=== PATIENT | female | born 1975 | race Caucasian/White ===

== ENCOUNTER 2018-05-03 15:28 | Emergency (ER) | payer BC, OTHER ==
[2018-05-03] MEDS ORDERED: Sodium Chloride 0.9% 10 ML Syringe FLUSH PRN (15:49)
[2018-05-03] MEDS ORDERED: Lactated Ringers 1,000 ML IV SCH (16:00)
[2018-05-03] MEDS: Sodium Chloride 0.9% 1,000 ML IV ONE ×2 (16:15→18:04)
[2018-05-03] MEDS ORDERED: Ondansetron 4 MG/2 ML SDV IVPUSH ONE (16:24)
[2018-05-03] MEDS ORDERED: Piperacillin/Tazobactam 3.375 GM in Sodium Chloride 0.9% 100 ML IV ONE (17:16)
[2018-05-03 17:26] LABS: CHLORIDE,CL 92 mmol/L (98-107); SODIUM,NA 130 mmol/L (136-145)
[2018-05-03] MEDS ORDERED: Calcium Chloride 10% 1 GM/10 ML Syringe IVPUSH ONE (17:44)
[2018-05-03] MEDS ORDERED: Insulin Regular, Human 10 UNIT in Dextrose 10% in Water 500 ML IV ONE ×2 (17:45)
[2018-05-03] MEDS ORDERED: 50% Dextrose in Water 50 ML Syringe IV PRN (17:46)
[2018-05-03] MEDS ORDERED: Sodium Bicarbonate 8.4% 50 MEQ/50 ML Syringe IVPUSH ONE (18:01)
--- NOTE | 2018-05-03 18:18 | EDM.PDOC ---
ED HPI GENERAL MEDICAL PROBLEM - General Chief Complaint: Abdominal Pain Time Seen by Provider: 05/03/18 15:28 Source of Information: Reports: Patient History Limitations: Reports: No Limitations - History of Present Illness INITIAL COMMENTS - FREE TEXT/NARRATIVE: Pt. presents to ER with abdominal pain, diarrhea, vomiting and spasms to spasms to the hands. Pt. was recently diagnosed with Crohn's disease but was misdiagnosed until recently. 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 Her research engineer marine equipment just recently diagnosed her with Crohn's. Pt. 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 The abdominal discomfort has been chronic but worse over the past 24 hours. She has been unable to keep down fluids. She has chronic hypokalemia and takes oral potassium chloride. because of the symptoms, pt. daughter has given her between 8 and 12 10meg doses of effervescent potassium throughout the day. Pt. states that she was experiencing severe pedal spasms which she attributed to electrolyte disturbance. Onset Date: 05/02/18 Duration: Constant Location: Reports: Abdomen, Upper Extremity, Left, Upper Extremity, Right - Related Data Allergies Allergy/AdvReac Type Severity Reaction Status Date / Time Unable to Assess Allergy Unverified 05/03/18 15:48 ED ROS GENERAL - Review of Systems Review Of Systems: See Below Constitutional: Reports: Weakness, Fatigue, Decreased Appetite, Weight Loss HEENT: Reports: No Symptoms Respiratory: Reports: No Symptoms Cardiovascular: Reports: No Symptoms Endocrine: Reports: No Symptoms GI/Abdominal: Reports: Abdominal Pain, Anorexia, Bloody Stool, Diarrhea, Decreased Appetite, Hematochezia, Nausea, Vomiting. Denies: Hematemesis : Reports: No Symptoms Musculoskeletal: Reports: Other (carpal spasm) Skin: Reports: No Symptoms Neurological: Reports: Weakness Psychiatric: Reports: No Symptoms Hematologic/Lymphatic: Reports: No Symptoms Immunologic: Reports: No Symptoms ED EXAM, GENERAL - Physical Exam Exam: See Below Exam Limited By: No Limitations General Appearance: Alert, Moderate Distress, Cachetic Eye Exam: Bilateral Eye: EOMI, Normal Fundi, Normal Inspection, PERRL Nose: Normal Inspection, Normal Mucosa, No Blood Throat/Mouth: Normal Inspection, Normal Lips, Normal Teeth, Normal Gums, Normal Oropharynx, Normal Voice, No Airway Compromise Head: Atraumatic, Normocephalic Neck: Normal Inspection, Supple, Non-Tender, Full Range of Motion Respiratory/Chest: No Respiratory Distress, Lungs Clear, Normal Breath Sounds, No Accessory Muscle Use, Chest Non-Tender Cardiovascular: Normal Peripheral Pulses, Regular Rate, Rhythm, No Edema, No Gallop, No JVD, No Murmur, No Rub Peripheral Pulses: 4+: Radial (L), Radial (R) GI/Abdominal: Soft, No Organomegaly, No Mass, Tender, Other (diffusely tender, hyperactive bowel sounds) (Female) Exam: Deferred Rectal (Female) Exam: Deferred Back Exam: Normal Inspection, Full Range of Motion, NT Extremities: Normal Inspection, Normal Range of Motion, Non-Tender, Normal Capillary Refill, No Pedal Edema Neurological: Alert, Oriented, CN II-XII Intact, Normal Cognition, Normal Gait, Normal Reflexes, No Motor/Sensory Deficits Psychiatric: Normal Affect, Normal Mood Skin Exam: Warm, Dry, Intact, Normal Color, No Rash EKG INTERPRETATION Rhythm: NSR Palmer: Normal P-Wave: Present QRS: Normal ST-T: Other (peaked T waves) QT: Normal Comparison: NA - No Prior EKG Course - Orders/Labs/Meds Orders: Active Orders 24 hr Category Date Time Status CULTURE BLOOD [BC] Stat Lab 05/03/18 16:05 Results CULTURE BLOOD [BC] Stat Lab 05/03/18 16:05 Results UA W/MICROSCOPIC [URIN] Stat Lab 05/03/18 15:50 Ordered Dextrose 50% in Water Med 05/03/18 17:46 Active 50 ml IV ASDIRECTED PRN Sodium Chloride 0.9% [Saline Flush] Med 05/03/18 15:49 Active 10 ml FLUSH ASDIRECTED PRN Blood Culture x2 Reflex Set [OM.PC] Stat Oth 05/03/18 15:51 Ordered Peripheral IV Insertion Adult [OM.PC] Routine Oth 05/03/18 15:50 Ordered Medication Orders Dextrose/Water (Dextrose 50% In Water) 50 ml IV ASDIRECTED PRN PRN Reason: Hypoglycemia Sodium Chloride (Saline Flush) 10 ml FLUSH ASDIRECTED PRN PRN Reason: Keep Vein Open Labs: Laboratory Tests 05/03/18 05/03/18 05/03/18 Range/Units 16:58 16:58 16:58 WBC 25.7 H* (4.0-10.0) x10^3/uL RBC 4.79 (4.00-5.50) x10^6/uL Hgb 15.3 (12.0-16.0) g/dL Hct 43.3 (33.0-47.0) % MCV 90.4 (78.0-93.0) fL MCH 31.9 (26.0-32.0) pg MCHC 35.3 (32.0-36.0) g/dL RDW Coeff of Brianda 13.1 (10.0-15.0) % Plt Count 509 H (130-400) x10^3/uL Add Manual Diff Yes Neutrophils % (Manual) 86 H (50-80) % Band Neutrophils % 9 H (0-6) % Lymphocytes % (Manual) 1 L (25-50) % Monocytes % (Manual) 1 L (2-11) % Metamyelocytes % 1 H (0) % Myelocytes % 2 H (0) % Platelet Estimate Marked inc H Macrocytosis 1+ slight H Spherocytes 1+ slight H PT 9.8 (9.6-11.4) SEC INR 0.9 L (2.0-3.5) Sodium 130 L (136-145) mmol/L Potassium 7.0 H* (3.5-5.1) mmol/L Chloride 92 L (98-107) mmol/L Carbon Dioxide 23 (21-32) mmol/L Anion Gap 22.0 H (10-20) mmol/L BUN 53 H (7-18) mg/dL Creatinine 3.2 H* (0.55-1.02) mg/dL Est Cr Clr Drug Dosing TNP Estimated GFR (MDRD) 16 Glucose 97 (74-106) mg/dL Lactic Acid (0.4-2.0) mmol/L Calcium 9.0 (8.5-10.1) mg/dL Corrected Calcium 9.48 (8.5-10.1) mg/dL Phosphorus 4.9 H (2.6-4.7) mg/dL Magnesium 2.2 (1.8-2.4) mg/dL Total Bilirubin 0.3 (0.2-1.0) mg/dL AST 36 (15-37) U/L ALT 85 H (14-59) U/L Alkaline Phosphatase 91 (46-116) U/L C-Reactive Protein < 0.2 (<=0.9) mg/dL Total Protein 7.1 (6.4-8.2) g/dL Albumin 3.4 (3.4-5.0) g/dL Globulin 3.7 Albumin/Globulin Ratio 0.92 / Range/Units 16:58 WBC (4.0-10.0) x10^3/uL RBC (4.00-5.50) x10^6/uL Hgb (12.0-16.0) g/dL Hct (33.0-47.0) % MCV (78.0-93.0) fL MCH (26.0-32.0) pg MCHC (32.0-36.0) g/dL RDW Coeff of Brianda (10.0-15.0) % Plt Count (130-400) x10^3/uL Add Manual Diff Neutrophils % (Manual) (50-80) % Band Neutrophils % (0-6) % Lymphocytes % (Manual) (25-50) % Monocytes % (Manual) (2-11) % Metamyelocytes % (0) % Myelocytes % (0) % Platelet Estimate Macrocytosis Spherocytes PT (9.6-11.4) SEC INR (2.0-3.5) Sodium (136-145) mmol/L Potassium (3.5-5.1) mmol/L Chloride (98-107) mmol/L Carbon Dioxide (21-32) mmol/L Anion Gap (10-20) mmol/L BUN (7-18) mg/dL Creatinine (0.55-1.02) mg/dL Est Cr Clr Drug Dosing Estimated GFR (MDRD) Glucose (74-106) mg/dL Lactic Acid 3.6 H* (0.4-2.0) mmol/L Calcium (8.5-10.1) mg/dL Corrected Calcium (8.5-10.1) mg/dL Phosphorus (2.6-4.7) mg/dL Magnesium (1.8-2.4) mg/dL Total Bilirubin (0.2-1.0) mg/dL AST (15-37) U/L ALT (14-59) U/L Alkaline Phosphatase (46-116) U/L C-Reactive Protein (<=0.9) mg/dL Total Protein (6.4-8.2) g/dL Albumin (3.4-5.0) g/dL Globulin Albumin/Globulin Ratio Meds: Medications Generic Name Dose Route Start Last Admin Trade Name Jocelyn PRN Reason Stop Dose Admin Dextrose/Water 50 ml 05/03/18 17:46 Dextrose 50% In Water IV ASDIRECTED PRN Hypoglycemia Sodium Chloride 10 ml 05/03/18 15:49 Saline Flush FLUSH ASDIRECTED PRN Keep Vein Open Discontinued Medications Generic Name Dose Route Start Last Admin Trade Name Jocelyn PRN Reason Stop Dose Admin Calcium Chloride 1 gm 05/03/18 17:44 05/03/18 18:05 Calcium Chloride 10% IVPUSH 05/03/18 17:45 1 gm ONETIME ONE Administration Lactated Ringer's 1,000 mls @ 500 mls/hr 05/03/18 16:00 Ringers, Lactated IV ASDIRECTED MARY Sodium Chloride 1,000 mls @ 1,000 mls/hr 05/03/18 16:24 05/03/18 18:04 Normal Saline IV 05/03/18 17:23 1,000 mls/hr .BOLUS ONE Administration Piperacillin Sod/Tazobactam 100 mls @ 200 mls/hr 05/03/18 17:16 05/03/18 18: 05 Sod 3.375 gm/ Sodium Chloride IV 05/03/18 17:45 200 mls/hr ONETIME ONE Administration Insulin Human Regular 10 unit/ 500.1 mls @ 500 mls/hr 05/03/18 17:45 18:05 Dextrose/Water IV 05/03/18 18:45 500 mls/hr ONETIME ONE Administration Ondansetron HCl 4 mg 05/03/18 16:24 05/03/18 16:30 Zofran IVPUSH 05/03/18 16:25 4 mg ONETIME ONE Administration Sodium Bicarbonate 50 meq 05/03/18 18:01 05/03/18 18:05 Sodium Bicarbonate 8.4% IVPUSH 05/03/18 18:02 50 meq ONETIME ONE Administration - Re-Assessments/Exams Free Text/Narrative Re-Assessment/Exam: 05/03/18 18:58 Pt. was given Zosyn 3.375gm IV. On obtaining her labs, pt. was given calcium chloride 1gm IV, 50 harper of sodium bicarb, 10u of regular insulin, and 25mg of D50. She was initially fluid resuscitated with 2 liters of normal saline. Villalobos catheter was placed. She continued to have minimal urine output, and normal saline boluses were continued. Departure - Departure Time of Disposition: 06:56 Disposition: DC/Tfer to [facility] 02 Clinical Impression: Acute renal failure (ARF), Hyperkalemia, Acute Crohn's disease - Discharge Information Referrals: PCP,Not In Area [Primary Care Provider] - Forms: ED Department Discharge, Interfacility Transfer EMTALA - My Orders Last 24 Hours: My Active Orders 05/03/18 15:49 Sodium Chloride 0.9% [Saline Flush] 10 ml FLUSH ASDIRECTED PRN 05/03/18 15:50 UA W/MICROSCOPIC [URIN] Stat Peripheral IV Insertion Adult [OM.PC] Routine 05/03/18 15:51 Blood Culture x2 Reflex Set [OM.PC] Stat 05/03/18 16:05 CULTURE BLOOD [BC] Stat CULTURE BLOOD [BC] Stat 05/03/18 17:46 Dextrose 50% in Water 50 ml IV ASDIRECTED PRN - Assessment/Plan Last 24 Hours: My Active Orders 05/03/18 15:49 Sodium Chloride 0.9% [Saline Flush] 10 ml FLUSH ASDIRECTED PRN 05/03/18 15:50 UA W/MICROSCOPIC [URIN] Stat Peripheral IV Insertion Adult [OM.PC] Routine 05/03/18 15:51 Blood Culture x2 Reflex Set [OM.PC] Stat 05/03/18 16:05 CULTURE BLOOD [BC] Stat CULTURE BLOOD [BC] Stat 05/03/18 17:46 Dextrose 50% in Water 50 ml IV ASDIRECTED PRN Assessment:: acute renal failure with hyperkalemia acute abdominal pain with history of chron's disease. Plan: IV normal saline with be continued enroute. Dr. Singer was the accepting physician as [facility] in [place]. I also spoke with nephrology regarding this patient. She will be transported via [facility] ground ambulance.
[2018-05-03] MEDS ORDERED: Sodium Chloride 0.9% 1,000 ML IV ONE (19:08)
== END 2018-05-03 19:20 | disposition short-term general hospital (02) ==
LOC: VM.ED 15:28
DX: E87.5 Hyperkalemia (principal); N17.9 Acute kidney failure, unspecified; K50.90 Crohn's disease, unspecified, without complications
CPT/HCPCS: 36415; 51702; 80053; 83605; 83735; 84100; 85025; 85610; 86140; 87040; 93005; 96361; 96365; 96375; 99285; J1815; J2405; J2543; J7030; J7050; J7060

== ENCOUNTER 2018-07-26 10:41 | Emergency (ER) | payer BC, OTHER ==
[2018-07-26] MEDS ORDERED: Sodium Chloride 0.9% 10 ML Syringe FLUSH PRN (11:08)
[2018-07-26] MEDS ORDERED: Sodium Chloride 0.9% 1,000 ML IV ONE (11:10)
[2018-07-26] MEDS ORDERED: Ondansetron 4 MG/2 ML SDV IVPUSH ONE (11:10)
--- NOTE | 2018-07-26 11:32 | EDM.PDOC ---
ED HPI GENERAL MEDICAL PROBLEM - General Chief Complaint: Gastrointestinal Problem Time Seen by Provider: 07/26/18 11:00 Source of Information: Reports: Patient, Family History Limitations: Reports: No Limitations - History of Present Illness INITIAL COMMENTS - FREE TEXT/NARRATIVE: Pt. presents to ER with complaints of nausea, vomiting, and diarrhea for 2 days. States that the symptoms got worse last evening. No chest pain or shortness of breath. Complains of weakness and fatigue. Pt. has a history of Crohns disease and is currently on Humira and prednisone for this. She has been in the prednisone since Jun. Denies any fever but complains of chills. Denies blood in stool or vomit. She currently sees [facility] for the Crohns. She does to have a PCP. She is from [facility] but is staying with her daughter while she is treated for Crohns. She has been here twice to the ER. She was transferred to [facility] in the first event due to CHARIS and hyperkalemia, and was admitted on the second event for dehydration. Onset: Today Onset Date: 07/24/18 Duration: Constant, Getting Worse Location: Reports: Abdomen, Generalized Quality: Reports: Burning Abdominal Pain Score (Numeric/FACES): 10 - Related Data Allergies Allergy/AdvReac Type Severity Reaction Status Date / Time acetaminophen Allergy Anaphylactic Verified 07/26/18 11:39 [From Darvocet-N] Shock codeine Allergy Anaphylactic Verified 07/26/18 11:39 Shock Penicillins Allergy Anaphylactic Verified 07/26/18 11:39 Shock propoxyphene Allergy Anaphylactic Verified 07/26/18 11:39 [From Darvocet-N] Shock Home Meds: Home Meds Budesonide [Budesonide EC] 9 mg PO DAILY 05/03/18 [History] Dicyclomine [Bentyl] 20 mg PO TID PRN 05/03/18 [History] Mesalamine 2.4 g PO DAILY 05/03/18 [History] Ondansetron HCl [Ondansetron] 4 mg PO TID PRN 05/03/18 [History] Potassium Bicarbonate/Cit Ac [Effer-K] 20 meq PO BID 05/03/18 [History] Ranitidine HCl [Ranitidine] 150 mg PO BID 05/03/18 [History] Cholecalciferol (Vitamin D3) [Vitamin D] 5,000 unit PO DAILY 05/23/18 [History] Vit W-Ca,Fe,FA(<1 mg) [ Vitamins] 1 each PO DAILY 05/23/18 [ History] Clindamycin HCl [Cleocin] 300 mg PO Q6H 10 Days #30 cap 05/24/18 [Rx] Past Medical History HEENT History: Reports: None Cardiovascular History: Reports: None Respiratory History: Reports: None Gastrointestinal History: Reports: Other (See Below) Other Gastrointestinal History: crohn's disease. colotis Genitourinary History: Reports: Acute Renal Failure, Chronic Renal Insuffiency Musculoskeletal History: Reports: Back Pain, Chronic Neurological History: Reports: None Psychiatric History: Reports: None Endocrine/Metabolic History: Reports: None Oncologic (Cancer) History: Reports: None Dermatologic History: Reports: None - Infectious Disease History Infectious Disease History: Reports: Chicken Pox - Past Surgical History HEENT Surgical History: Reports: None GI Surgical History: Reports: Cholecystectomy, Other (See Below) Other GI Surgeries/Procedures: appendectomy; partial sigmoidectomy Social & Family History - Family History Family Medical History: Noncontributory - Caffeine Use Caffeine Use: Reports: Coffee, Soda, Tea ED ROS GENERAL - Review of Systems Review Of Systems: See Below Constitutional: Reports: No Symptoms HEENT: Reports: No Symptoms Respiratory: Reports: No Symptoms Cardiovascular: Reports: No Symptoms Endocrine: Reports: No Symptoms GI/Abdominal: Reports: Abdominal Pain, Diarrhea, Nausea, Vomiting : Reports: No Symptoms Musculoskeletal: Reports: No Symptoms Skin: Reports: No Symptoms Neurological: Reports: No Symptoms Psychiatric: Reports: No Symptoms, Other Hematologic/Lymphatic: Reports: No Symptoms Immunologic: Reports: No Symptoms ED EXAM, GENERAL - Physical Exam Exam: See Below Exam Limited By: No Limitations General Appearance: Alert, WD/WN, No Apparent Distress Throat/Mouth: Normal Inspection, Normal Lips, Normal Teeth, Normal Gums, Normal Oropharynx, Normal Voice, No Airway Compromise Head: Atraumatic, Normocephalic Neck: Normal Inspection, Supple, Non-Tender, Full Range of Motion Respiratory/Chest: No Respiratory Distress, Lungs Clear, Normal Breath Sounds, No Accessory Muscle Use, Chest Non-Tender Cardiovascular: Normal Peripheral Pulses, Regular Rate, Rhythm, No Edema, No Gallop, No JVD, No Murmur, No Rub Peripheral Pulses: 4+: Radial (R) GI/Abdominal: No Organomegaly, No Mass, Tender, Abnormal Bowel Sounds ( diminished) (Female) Exam: Deferred Rectal (Female) Exam: Deferred Back Exam: Normal Inspection, Full Range of Motion, NT Extremities: Normal Inspection, Normal Range of Motion, Non-Tender, Normal Capillary Refill, No Pedal Edema Neurological: Alert, Oriented, CN II-XII Intact, Normal Cognition, Normal Gait, Normal Reflexes, No Motor/Sensory Deficits Psychiatric: Normal Affect, Normal Mood, Anxious, Tearful Skin Exam: Warm, Dry, Pallor Lymphatic: No Adenopathy Course - Vital Signs Last Recorded V/S: Last Vital Signs Temp 36.8 C 07/26/18 10:55 Pulse 97 07/26/18 10:55 Resp 16 07/26/18 10:55 BP 95/45 L 07/26/18 12:10 Pulse Ox 100 07/26/18 10:55 - Orders/Labs/Meds Orders: Active Orders 24 hr Category Date Time Status Abdomen Series w Chest 1V [CR] Stat Exams 07/26/18 11:08 Taken CULTURE BLOOD [BC] Stat Lab 07/26/18 11:30 Results CULTURE BLOOD [BC] Stat Lab 07/26/18 11:41 Results UA W/MICROSCOPIC [URIN] Stat Lab 07/26/18 11:09 Ordered Sodium Chloride 0.9% [Saline Flush] Med 07/26/18 11:08 Active 10 ml FLUSH ASDIRECTED PRN Sodium Chloride 0.9% with KCl [Normal Saline with 40 Med 07/26/18 12:45 Ordered mEq KCl] 1,000 ml IV ASDIRECTED Blood Culture x2 Reflex Set [OM.PC] Stat Oth 07/26/18 11:09 Ordered Peripheral IV Insertion Adult [OM.PC] Routine Oth 07/26/18 11:09 Ordered Medication Orders Potassium Chloride/Sodium Chloride (Normal Saline With 40 Meq Kcl) 1,000 mls @ 250 mls/hr IV ASDIRECTED MARY Sodium Chloride (Saline Flush) 10 ml FLUSH ASDIRECTED PRN PRN Reason: Keep Vein Open Labs: Laboratory Tests 07/26/18 07/26/18 07/26/18 Range/Units 11:30 11:41 11:49 WBC 13.3 H (4.0-10.0) x10^3/uL RBC 4.82 (4.00-5.50) x10^6/uL Hgb 15.5 D (12.0-16.0) g/dL Hct 44.0 (33.0-47.0) % MCV 91.3 D (78.0-93.0) fL MCH 32.2 H (26.0-32.0) pg MCHC 35.2 (32.0-36.0) g/dL RDW Coeff of Brianda 13.1 (10.0-15.0) % Plt Count 449 H (130-400) x10^3/uL Neut % (Auto) 72.4 (50.0-80.0) % Lymph % (Auto) 16.7 L (25.0-50.0) % Collier % (Auto) 7.7 (2.0-11.0) % Eos % (Auto) 2.7 (0.0-4.0) % Baso % (Auto) 0.5 (0.2-1.2) % PT 10.1 (9.6-11.4) SEC INR 1.0 L (2.0-3.5) Sodium 129 L* (136-145) mmol/L Potassium 2.7 L* (3.5-5.1) mmol/L Chloride 93 L (98-107) mmol/L Carbon Dioxide 19 L (21-32) mmol/L Anion Gap 19.7 (10-20) mmol/L BUN 45 H (7-18) mg/dL Creatinine 3.8 H* D (0.55-1.02) mg/dL Est Cr Clr Drug Dosing 10.71 mL/min Estimated GFR (MDRD) 13 Glucose 99 (74-106) mg/dL Lactic Acid (0.4-2.0) mmol/L Calcium 9.0 (8.5-10.1) mg/dL Corrected Calcium 9.40 (8.5-10.1) mg/dL Phosphorus 6.8 H (2.6-4.7) mg/dL Magnesium 2.0 (1.8-2.4) mg/dL Total Bilirubin 0.3 (0.2-1.0) mg/dL AST 22 (15-37) U/L ALT 51 (14-59) U/L Alkaline Phosphatase 102 (46-116) U/L C-Reactive Protein 0.3 (<=0.9) mg/dL Total Protein 7.3 (6.4-8.2) g/dL Albumin 3.5 (3.4-5.0) g/dL Globulin 3.8 Albumin/Globulin Ratio 0.92 07/26/18 Range/Units 11:49 WBC (4.0-10.0) x10^3/uL RBC (4.00-5.50) x10^6/uL Hgb (12.0-16.0) g/dL Hct (33.0-47.0) % MCV (78.0-93.0) fL MCH (26.0-32.0) pg MCHC (32.0-36.0) g/dL RDW Coeff of Brianda (10.0-15.0) % Plt Count (130-400) x10^3/uL Neut % (Auto) (50.0-80.0) % Lymph % (Auto) (25.0-50.0) % Collier % (Auto) (2.0-11.0) % Eos % (Auto) (0.0-4.0) % Baso % (Auto) (0.2-1.2) % PT (9.6-11.4) SEC INR (2.0-3.5) Sodium (136-145) mmol/L Potassium (3.5-5.1) mmol/L Chloride (98-107) mmol/L Carbon Dioxide (21-32) mmol/L Anion Gap (10-20) mmol/L BUN (7-18) mg/dL Creatinine (0.55-1.02) mg/dL Est Cr Clr Drug Dosing mL/min Estimated GFR (MDRD) Glucose (74-106) mg/dL Lactic Acid 1.6 (0.4-2.0) mmol/L Calcium (8.5-10.1) mg/dL Corrected Calcium (8.5-10.1) mg/dL Phosphorus (2.6-4.7) mg/dL Magnesium (1.8-2.4) mg/dL Total Bilirubin (0.2-1.0) mg/dL AST (15-37) U/L ALT (14-59) U/L Alkaline Phosphatase (46-116) U/L C-Reactive Protein (<=0.9) mg/dL Total Protein (6.4-8.2) g/dL Albumin (3.4-5.0) g/dL Globulin Albumin/Globulin Ratio Meds: Medications Generic Name Dose Route Start Last Admin Trade Name Freq PRN Reason Stop Dose Admin Potassium Chloride/Sodium Chloride 1,000 mls @ 250 mls/hr 07/26/18 12:45 Normal Saline With 40 Meq Kcl IV ASDIRECTED MARY Sodium Chloride 10 ml 07/26/18 11:08 Saline Flush FLUSH ASDIRECTED PRN Keep Vein Open Discontinued Medications Generic Name Dose Route Start Last Admin Trade Name Freq PRN Reason Stop Dose Admin Sodium Chloride 1,000 mls @ 1,000 mls/hr 07/26/18 11:10 07/26/18 11:06 Normal Saline IV 07/26/18 12:09 1,000 mls/hr .BOLUS ONE Administration Ondansetron HCl 4 mg 07/26/18 11:10 07/26/18 11:40 Zofran IVPUSH 07/26/18 11:11 4 mg ONETIME ONE Administration Departure - Departure Time of Disposition: 13:05 Disposition: DC/Tfer to [facility] 02 Clinical Impression: CHARIS (acute kidney injury), Dehydration, Renal failure (ARF), acute on chronic, Hypokalemia, Hyponatremia - Discharge Information Referrals: PCP,None [Primary Care Provider] - Forms: ED Department Discharge, Interfacility Transfer EMTALA - My Orders Last 24 Hours: My Active Orders 07/26/18 11:08 Abdomen Series w Chest 1V [CR] Stat Sodium Chloride 0.9% [Saline Flush] 10 ml FLUSH ASDIRECTED PRN 07/26/18 11:09 UA W/MICROSCOPIC [URIN] Stat Blood Culture x2 Reflex Set [OM.PC] Stat Peripheral IV Insertion Adult [OM.PC] Routine 07/26/18 11:30 CULTURE BLOOD [BC] Stat 07/26/18 11:41 CULTURE BLOOD [BC] Stat 07/26/18 12:45 Sodium Chloride 0.9% with KCl [Normal Saline with 40 mEq KCl] 1,000 ml IV ASDIRECTED - Assessment/Plan Last 24 Hours: My Active Orders 07/26/18 11:08 Abdomen Series w Chest 1V [CR] Stat Sodium Chloride 0.9% [Saline Flush] 10 ml FLUSH ASDIRECTED PRN 07/26/18 11:09 UA W/MICROSCOPIC [URIN] Stat Blood Culture x2 Reflex Set [OM.PC] Stat Peripheral IV Insertion Adult [OM.PC] Routine 07/26/18 11:30 CULTURE BLOOD [BC] Stat 07/26/18 11:41 CULTURE BLOOD [BC] Stat 07/26/18 12:45 Sodium Chloride 0.9% with KCl [Normal Saline with 40 mEq KCl] 1,000 ml IV ASDIRECTED Plan: Pt. will be transferred via [facility] ground ambulance to [facility]. She is a code 1. She has had 1 liter of NS. Will start NS with 40KCl at 250/hr. Discussed case with Dr. Le who accepts the patient in transfer. Will give renally adjusted dose of Invanz at this time-she has not produced any urine yet.
[2018-07-26 12:20] LABS: ANION GAP 19.7 mmol/L (10-20)
[2018-07-26] MEDS ORDERED: Sodium Chloride 0.9% with KCl 1,000 ML IV SCH (12:45)
== END 2018-07-26 13:30 | disposition short-term general hospital (02) ==
LOC: VM.ED 10:41
DX: N17.9 Acute kidney failure, unspecified (principal); N18.9 Chronic kidney disease, unspecified; E87.1 Hypo-osmolality and hyponatremia; E87.6 Hypokalemia; E86.0 Dehydration; K50.90 Crohn's disease, unspecified, without complications; Z88.0 Allergy status to penicillin; Z88.5 Allergy status to narcotic agent; Z88.8 Allergy status to other drugs, medicaments and biological substances; Z79.899 Other long term (current) drug therapy
CPT/HCPCS: 36415; 74022; 80053; 81001; 83605; 83735; 84100; 85025; 85610; 86140; 87040; 96361; 96365; 96375; 99285; J2405; J3480; J7030

== ENCOUNTER 2018-11-23 12:25 | Inpatient (IN) | payer BC, OTHER ==
[2018-11-23] MEDS ORDERED: Menthol/Zinc Oxide Ointment 3.5 GM Tube TOP PRN (13:18)
[2018-11-23] MEDS ORDERED: Acetaminophen 500 MG Tab PO PRN (13:18)
[2018-11-23] MEDS ORDERED: Hydrocortisone 1% Crm 30 GM Tube TOP PRN (13:18)
[2018-11-23] MEDS: Sodium Chloride 0.9% with KCl 1,000 ML IV SCH (13:26)
[2018-11-23] MEDS ORDERED: Potassium Chloride Riders 20 MEQ in Premix Bag 1 BAG IV ONE (13:36)
[2018-11-23] MEDS: Metoclopramide 5 MG Tab PO SCH ×3 (13:49→19:43)
[2018-11-23] MEDS: HYDROmorphone 2 MG Tab PO PRN ×2 (13:49→19:56)
--- NOTE | 2018-11-23 14:51 | PCM.HP ---
H&P History of Present Illness - General Date of Service: 11/23/18 Admit Problem/Dx: Admission Diagnosis/Problem Admission Diagnosis/Problem Dehydration Source of Information: Patient History Limitations: Reports: No Limitations - History of Present Illness Initial Comments - Free Text/Narative: Mrs. Cota is a 43 yo female with PMH of Crohn's and severe malnutrition who presented to clinic with generalized weakness progressively worsening x 2 days. She had an appointment in clinic scheduled today for hospital follow-up. She has been hospitalized repeatedly over the past few months related to dehydration and malnutrition with inability to tolerate tube feedings at desired rates. She was most recently dismissed from the hospital on 11/16. She has been struggling at home to continue her tube feedings at the goal rate of 40 cc/hr related to abdominal pain and nausea. She has frequently had to decrease them to 20 cc/hr and ended up stopping them completely last night because she started vomiting. Her abdominal pain overall has been stable and she has only needed to take 3 doses of hydromorphone since discharge. She has been using zofran and phenergan with some relief in nausea. She had been started on marinol and reglan during her last hospital stay but there was an issue with getting these upon discharge so she was not able to get them filled until yesterday. She also has had some trouble getting her gabapentin filled. She is not sure if this was helping but notes that she was probably not on it long enough to know. She has not had any fever or chills. She states that her stools are still loose but are less often and less loose than they have been; she has intermittent bright red blood noted in the stools. She does feel the new dose of remicade is working better for her Crohn's. She had been maintaining fairly well until the last 2 days when she has started to feel more generally weak and dizzy. She has not fainted. She has not been taking her potassium pills as she did experience hyperkalemia last time she was dehydrated due to the CHARIS that went along with the dehydration. She has been feeling very anxious over the past few days as well. She has never had anxiety like this previously and is not sure why she is feeling this way now. Abdomen Pain Score (Numeric/FACES): 8 - Related Data Allergies/Adverse Reactions: Allergies Allergy/AdvReac Type Severity Reaction Status Date / Time codeine Allergy Severe Anaphylactic Verified 11/23/18 14:25 Shock Penicillins Allergy Severe Anaphylactic Verified 11/23/18 14:25 Shock propoxyphene Allergy Severe Anaphylactic Verified 11/23/18 14:25 [From Rebeca-Hal] Shock lactose AdvReac Diarrhea Verified 11/23/18 14:25 metoclopramide [From Reglan] AdvReac Stomach Verified 11/23/18 14:25 Ache morphine AdvReac Headache Verified 11/23/18 14:25 Home Medications: Home Meds Dicyclomine [Bentyl] 10 mg PO QID 05/03/18 [History] Ondansetron HCl [Ondansetron] 8 mg PO TID PRN 05/03/18 [History] Ranitidine HCl [Ranitidine] 150 mg PO BEDTIME 05/03/18 [History] Vit Calc,Iron,Folic [ Vitamins] 1 tab PO DAILY 05/23/18 [ History] Bethanechol [Urecholine] 25 mg PO TID 09/01/18 [History] Hydrocortisone [Anusol-HC] 1 applic RECTAL DAILY 09/01/18 [History] Lactobacillus Rhamnosus GG [Culturelle] 1 cap PO DAILY 09/01/18 [History] Acetaminophen [Tylenol Extra Strength] 1,000 mg PO TID PRN 11/23/18 [History] Amitriptyline [Elavil] 25 mg PO BEDTIME 11/23/18 [History] Cod Liver Oil/Zinc Oxide [Desitin Diaper Rash 40% Paste] 1 appful TOP Q2H PRN [History] Dronabinol [Marinol] 5 mg PO BIDAC 11/23/18 [History] Fluticasone Propionate [Flonase] 1 spray NASBOTH BID 11/23/18 [History] Gabapentin [Neurontin] 200 mg PO TID 11/23/18 [History] HYDROmorphone [Dilaudid] 2 mg PO Q4H PRN 11/23/18 [History] Hydrocortisone [Anusol-HC] 1 appful RC TID PRN 11/23/18 [History] Melatonin 6 mg PO BEDTIME 11/23/18 [History] Metoclopramide [Reglan] 5 mg PO QID 11/23/18 [History] Mirtazapine [Remeron] 15 mg PO BEDTIME 11/23/18 [History] Omeprazole Magnesium [Prilosec Otc] 40 mg PO BIDAC 11/23/18 [History] Potassium Bicarbonate [Potassium Tablet Eff] 25 meq PO BID 11/23/18 [History] Promethazine [Phenergan] 25 mg PO Q6H PRN 11/23/18 [History] Simethicone 80 mg PO QID PRN 11/23/18 [History] Sulfamethoxazole/Trimethoprim [Bactrim Ds Tablet] 1 tab PO MOWEFR@08 11/23/18 [ History] predniSONE 35 mg PO DAILY 11/23/18 [History] traZODone HCl [Trazodone HCl] 50 mg PO BEDTIME 11/23/18 [History] Past Medical History HEENT History: Reports: None Cardiovascular History: Reports: None Respiratory History: Reports: None Gastrointestinal History: Reports: Inflammatory Bowel Disease (Crohn's) Genitourinary History: Reports: Acute Renal Failure, Chronic Renal Insuffiency CLINICAL LABORATORY TECHNOLOGIST History: Reports: None Musculoskeletal History: Reports: Back Pain, Chronic Neurological History: Reports: None Psychiatric History: Reports: None Endocrine/Metabolic History: Reports: None Hematologic History: Reports: Anemia Immunologic History: Reports: None Oncologic (Cancer) History: Reports: None Dermatologic History: Reports: None - Infectious Disease History Infectious Disease History: Reports: C-Difficile, Chicken Pox - Past Surgical History HEENT Surgical History: Reports: None GI Surgical History: Reports: Appendectomy, Cholecystectomy, Other (See Below) Other GI Surgeries/Procedures: partial sigmoidectomy Social & Family History - Family History Neurological: Reports: Parkinson's Oncologic: Reports: Brain, Liver - Tobacco Use Smoking Status *Q: Never Smoker - Caffeine Use Caffeine Use: Reports: Coffee, Soda, Tea - Alcohol Use Alcohol Use History: No Alcohol Use in Last Twelve Months: No - Recreational Drug Use Recreational Drug Use: No - Living Situation & Occupation Living situation: Reports: , with Significant Other (from [place] but staying with her daughter in [place]) 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) H&P Review of Systems - Review of Systems: Review Of Systems: See Below General: Reports: No Symptoms HEENT: Reports: No Symptoms Pulmonary: Reports: No Symptoms Cardiovascular: Reports: No Symptoms Gastrointestinal: Reports: Abdominal Pain, Bloody Stool, Diarrhea, Nausea, Vomiting Genitourinary: Reports: No Symptoms Musculoskeletal: Reports: No Symptoms Skin: Reports: No Symptoms Psychiatric: Reports: Anxiety Neurological: Reports: No Symptoms Exam - Exam Exam: See Below - Vital Signs Vital Signs: Last Vital Signs Temp 36.8 C 11/23/18 12:27 Pulse 68 11/23/18 12:27 Resp 18 11/23/18 12:27 BP 102/67 11/23/18 12:27 Pulse Ox 100 11/23/18 12:27 Weight: 37.058 kg - Exam General: Alert, Oriented, Cooperative HEENT: Conjunctiva Clear, Posterior Pharynx Clear, Pupils Equal, Pupils Reactive , TMs Clear, Other (mucous membranes dry) Neck: Supple, Trachea Midline. No: Lymphadenopathy, Thyromegaly Lungs: Clear to Auscultation, Normal Respiratory Effort Cardiovascular: Regular Rhythm, Normal S1, Normal S2, Tachycardia GI/Abdominal Exam: Soft, No Organomegaly, No Distention, No Mass, Tender ( generally but without any rebound, rigidity, or guarding), Abnormal Bowel Sounds (hyperactive) Peripheral Pulses: 2+: Radial (L), Radial (R) Skin: Warm, Dry, Intact Psychiatric: Alert, Anxious *Q Meaningful Use (ADM) - VTE *Q VTE Anticoagulation Contraindications: Med/TX Not Indicated/Need - Problem List (1) Dehydration SNOMED Code(s): 99350012 ICD Code: E86.0 - DEHYDRATION Status: Acute Current Visit: No (2) CHARIS (acute kidney injury) SNOMED Code(s): 82412573 ICD Code: N17.9 - ACUTE KIDNEY FAILURE, UNSPECIFIED Status: Acute Current Visit: No (3) Chronic kidney disease SNOMED Code(s): 375315072 ICD Code: N18.9 - CHRONIC KIDNEY DISEASE, UNSPECIFIED Status: Chronic Current Visit: Yes Qualifiers: Chronic kidney disease stage: stage 3 (moderate) Qualified Code(s): N18.3 - Chronic kidney disease, stage 3 (moderate) (4) Hyponatremia SNOMED Code(s): 78704304 ICD Code: E87.1 - HYPO-OSMOLALITY AND HYPONATREMIA Status: Acute Current Visit: No (5) Hypokalemia SNOMED Code(s): 27853218 ICD Code: E87.6 - HYPOKALEMIA Status: Acute Priority: Medium Current Visit: No (6) Crohns disease SNOMED Code(s): 03874448 ICD Code: K50.90 - CROHN'S DISEASE, UNSPECIFIED, WITHOUT COMPLICATIONS Status: Chronic Current Visit: Yes Qualifiers: Gastrointestinal tract location: unspecified location Digestive disease complication type: unspecified complication Qualified Code(s): K50.919 - Crohn 's disease, unspecified, with unspecified complications (7) Nausea & vomiting SNOMED Code(s): 99171746 ICD Code: R11.2 - NAUSEA WITH VOMITING, UNSPECIFIED Status: Acute Current Visit: Yes (8) Chronic abdominal pain SNOMED Code(s): 981547269 ICD Code: R10.9 - UNSPECIFIED ABDOMINAL PAIN; G89.29 - OTHER CHRONIC PAIN Status: Chronic Current Visit: Yes (9) Severe malnutrition SNOMED Code(s): 02121435 ICD Code: E43 - UNSPECIFIED SEVERE PROTEIN-CALORIE MALNUTRITION Status: Chronic Current Visit: Yes (10) On tube feeding diet SNOMED Code(s): 67542299 ICD Code: Z78.9 - OTHER SPECIFIED HEALTH STATUS Status: Chronic Current Visit: Yes (11) Anxiety SNOMED Code(s): 61271813 ICD Code: F41.9 - ANXIETY DISORDER, UNSPECIFIED Status: Acute Current Visit: Yes Problem List Initiated/Reviewed/Updated: Yes Orders Last 24hrs: Active Orders 24 hr Category Date Time Status Patient Status [ADT] Routine ADT 11/23/18 13:08 Active Cardiac Monitoring [RC] 06,10,14,18,22,02 Care 11/23/18 13:09 Active Notify Provider Vital Signs [RC] 06,10,14,18,22,02 Care 11/23/18 13:09 Active Oxygen Therapy [RC] .PRN Care 11/23/18 13:08 Active Up With Assistance [RC] ASDIRECTED Care 11/23/18 13:08 Active VTE/DVT Education [RC] .PRN Care 11/23/18 13:08 Active Vital Signs [RC] 06,10,14,18,22,02 Care 11/23/18 13:08 Active Regular Diet [DIET] Diet 11/23/18 Dinner Active BASIC METABOLIC PANEL,BMP [CHEM] Routine Lab 11/23/18 18:00 Ordered CBC WITH AUTO DIFF [HEME] Routine Lab 11/24/18 05:11 Ordered MAGNESIUM [CHEM] Routine Lab 11/24/18 05:11 Ordered RENAL FUNCTION PANEL,RFP [CHEM] Routine Lab 11/24/18 05:11 Ordered Acetaminophen [Tylenol Extra Strength] Med 11/23/18 13:18 Active 1,000 mg PO TID PRN Bethanechol [Urecholine] Med 11/23/18 13:18 Active 25 mg PO TID PRN Dicyclomine [Bentyl] Med 11/23/18 16:00 Active 10 mg PO QID Dronabinol [Marinol] Med 11/23/18 17:00 Active 0 mg PO BIDAC Famotidine [Pepcid] Med 11/23/18 20:00 Active 20 mg PO BEDTIME Fluticasone Propionate [Flonase] Med 11/23/18 20:00 Active 0 gm NASBOTH BID Gabapentin [Neurontin] Med 11/23/18 20:00 Active 100 mg PO TID HYDROmorphone [Dilaudid] Med 11/23/18 13:18 Active 2 mg PO Q4H PRN Hydrocortisone [Hydrocortisone 1% Crm] Med 11/24/18 08:00 Active 0 gm TOP DAILY Hydrocortisone [Hydrocortisone 1% Crm] Med 11/23/18 13:18 Active 0 gm TOP TID PRN Lactobacillus Rhamnosus GG [Culturelle] Med 11/24/18 08:00 Active 1 cap PO DAILY Melatonin Med 11/23/18 20:00 Active 6 mg PO BEDTIME Menthol/Zinc Oxide [Calmoseptine] Med 11/23/18 13:18 Active 0 gm TOP Q2H PRN Metoclopramide [Reglan] Med 11/23/18 13:45 Active 5 mg PO QIDACANDBED Mirtazapine [Remeron] Med 11/23/18 20:00 Active 15 mg PO BEDTIME Omeprazole Med 11/23/18 17:00 Active 40 mg PO BIDAC Potassium Bicarbonate [Klor-Con EF] Med 11/23/18 20:00 Ordered 25 meq PO BID Potassium Chloride Riders [KCL 20 MEQ in Water 50 ML] Med 11/23/18 13:36 Active 20 meq Premix Bag 1 bag IV ONETIME Simethicone Med 11/23/18 13:18 Active 80 mg PO QID PRN Sodium Chloride 0.9% with KCl [Normal Saline with 40 Med 11/23/18 13:15 Active mEq KCl] 1,000 ml IV ASDIRECTED Sulfamethoxazole/Trimethoprim [Septra DS] Med 11/25/18 08:00 Active 1 tab PO MOWEFR@08 predniSONE Med 11/24/18 08:00 Active 30 mg PO DAILY Anticoagulation Contraindications VTE [AST] Per Unit Oth 11/23/18 13:08 Ordered Routine Resuscitation Status Routine Resus Stat 11/23/18 13:08 Ordered Medication Orders Acetaminophen (Tylenol Extra Strength) 1,000 mg PO TID PRN PRN Reason: Pain Bethanechol Chloride (Urecholine) 25 mg PO TID PRN PRN Reason: Abdominal Pain Calamine/Phenol (Calmoseptine) 0 gm TOP Q2H PRN PRN Reason: Rash Dicyclomine HCl (Bentyl) 10 mg PO QID MARY Famotidine (Pepcid) 20 mg PO BEDTIME MARY Fluticasone Propionate (Flonase) 0 gm NASBOTH BID MARY Gabapentin (Neurontin) 100 mg PO TID MARY Hydrocortisone (Hydrocortisone 1% Crm) 0 gm TOP TID PRN PRN Reason: irritation Hydrocortisone (Hydrocortisone 1% Crm) 0 gm TOP DAILY MARY Hydromorphone HCl (Dilaudid) 2 mg PO Q4H PRN PRN Reason: Pain Last Admin: 11/23/18 13:49 Dose: 2 mg Potassium Chloride/Sodium Chloride (Normal Saline With 40 Meq Kcl) 1,000 mls @ 100 mls/hr IV ASDIRECTED MARY Last Admin: 11/23/18 13:26 Dose: 100 mls/hr Potassium Chloride 20 meq/ (Premix) 50 mls @ 20 mls/hr IV ONETIME ONE Stop: 11/23/18 16:05 Last Admin: 11/23/18 14:00 Dose: 20 mls/hr Lactobacillus Rhamnosus (Culturelle) 1 cap PO DAILY MARY Melatonin (Melatonin) 6 mg PO BEDTIME MARY Metoclopramide HCl (Reglan) 5 mg PO QIDACANDBED MARY Last Admin: 11/23/18 13:49 Dose: 5 mg Mirtazapine (Remeron) 15 mg PO BEDTIME MARY Dronabinol [Marinol] (5mg (Own Supply)) 0 mg PO BIDAC MARY Omeprazole (Omeprazole) 40 mg PO BIDAC MARY Potassium Bicarbonate (Klor-Con Ef) 25 meq PO BID [facility] Prednisone (Prednisone) 30 mg PO DAILY [facility] Simethicone (Simethicone) 80 mg PO QID PRN PRN Reason: Gas Trimethoprim/Sulfamethoxazole (Septra Ds) 1 tab PO MOWEFR@08 [facility] Assessment/Plan Comment:: 43 yo female admitted with dehydration and CHARIS secondary to inability to tolerate tube feedings in the setting of severe underlying Crohn's disease. #1 Dehydration #2 Acute Kidney Injury #3 Chronic Kidney Disease #4 Hyponatremia - Patient is admitted due to severity of dehydration and very low likelihood she would be able to rehydrate by mouth. - Patient has had a tendency toward fluid overload if hydrated too quickly. - Therefore, will fluid replete at slightly higher than her maintenance rate. Will do 0.9% NaCl with 40 of KCl @ 100 cc/hr overnight. - She can take fluids and food by mouth ad keon. - Recheck BMP this evening and again in the am. #5 Hypokalemia - Severe but without significant EKG changes. - Patient will be on telemetry while this is repleted. - Will do 40 KCl in her IV fluids as well as a 1 time dose of 20 mEq IV now. - Will also continue her PO supplementation. - Recheck potassium 1 hour after 1 time dose is done. yardage caller provider to follow -up and adjust PO supplementation and IV fluids as indicated. - Recheck lab in the am along with magnesium. #6 Crohn's Disease #7 Nausea and vomiting #8 Chronic Abdominal Pain - No evidence of any flare at this time. - Continue prednisone at 30 mg daily, which is what she is supposed to be on now. - Restart gabapentin at low dose. Will adjust dosing depending on renal function. - Continue all home medications except for amitriptyline, trazodone, zofran, and phenergan in light of risk for QTc prolongation in the setting of severe hypokalemia. #9 Severe Malnutrition #10 On Tube Feedings - Hold tube feedings until at least tomorrow morning. - Will assess tomorrow morning and potentially restart at 10 cc/hr. #11 Anxiety - Suspect this is related to the above issues. - Will monitor for improvement with above interventions. Patient was admitted to acute status due to above diagnoses/interventions - anticipate she will be admitted for 3-4 days. If requiring longer hospitalization than that, she is aware that she would likely need transfer to [place] at that point. IV fluids and potassium repletion overnight. Recheck labs in am. Hold off on VTE prophylaxis given report of intermittent GI bleed; will encourage ambulation once she is feeling better (hopefully tomorrow). She wishes to be full code - discussed on admission.
[2018-11-23] MEDS: Omeprazole 20 MG Cap.CR PO SCH (16:36)
[2018-11-23] MEDS: Dicyclomine 10 MG Cap PO SCH ×2 (16:36→19:43)
[2018-11-23] MEDS ORDERED: Potassium Bicarbonate 25 MEQ Tab.EFF PO SCH ×2 (18:00→20:00)
[2018-11-23 18:27] LABS: ANION GAP 21.3 mmol/L (10-20)
[2018-11-23] MEDS ORDERED: Magnesium Sulfate/Water 2 GM in Premix Bag 1 BAG IV ONE (18:31)
[2018-11-23] MEDS: Melatonin 3 MG Tab PO SCH (19:42)
[2018-11-23] MEDS: Famotidine 20 MG Tab PO SCH (19:43)
[2018-11-23] MEDS: Gabapentin 100 MG Cap PO SCH (19:43)
[2018-11-23] MEDS: Mirtazapine 15 MG Tab PO SCH (19:43)
[2018-11-23] MEDS: Fluticasone Propionate Nasal Spray 16 GM Bottle NASBOTH SCH (19:45)
[2018-11-23] MEDS ORDERED: Potassium Chloride 20 MEQ Tab.ER PO ONE (19:46)
[2018-11-24] MEDS: Sodium Chloride 0.9% with KCl 1,000 ML IV SCH ×2 (03:05→17:01)
[2018-11-24] MEDS: Metoclopramide 5 MG Tab PO SCH ×4 (05:59→19:40)
[2018-11-24] MEDS: HYDROmorphone 2 MG Tab PO PRN ×3 (05:59→20:34)
[2018-11-24] MEDS: Omeprazole 20 MG Cap.CR PO SCH ×2 (05:59→16:48)
[2018-11-24 07:19] LABS: CHLORIDE,CL 95 mmol/L (98-107)
[2018-11-24 07:20] LABS: ANION GAP 15.8 mmol/L (10-20); SODIUM,NA 128 mmol/L (136-145)
[2018-11-24] MEDS: Gabapentin 100 MG Cap PO SCH ×3 (08:28→19:40)
[2018-11-24] MEDS: Fluticasone Propionate Nasal Spray 16 GM Bottle NASBOTH SCH ×2 (08:28→19:42)
[2018-11-24] MEDS: Lactobacillus Rhamnosus GG (Probiotic) Cap PO SCH (08:28)
[2018-11-24] MEDS: Dicyclomine 10 MG Cap PO SCH ×4 (08:28→19:40)
[2018-11-24] MEDS: predniSONE 10 MG Tab PO SCH (08:28)
[2018-11-24] MEDS: Hydrocortisone 1% Crm 30 GM Tube TOP SCH (08:29)
--- NOTE | 2018-11-24 08:38 | PCM.PN ---
- General Info Date of Service: 11/24/18 Subjective Update: 43 yo female hospital day #2 admitted with dehydration and acute kidney injury as well as hypokalemia. She is feeling much better today. Her feelings of anxiety and panic are resolved. She still feels weak and slightly lightheaded but both are improved compared to yesterday. She is having increased abdominal pain today but no change in bowel movements. Still nauseous but no vomiting. Ate well for both supper last night and breakfast this morning. - Review of Systems General: Reports: No Symptoms HEENT: Reports: No Symptoms Pulmonary: Reports: No Symptoms Cardiovascular: Reports: No Symptoms Gastrointestinal: Reports: Abdominal Pain Genitourinary: Reports: No Symptoms Musculoskeletal: Reports: No Symptoms Skin: Reports: No Symptoms - Patient Data Vitals - Most Recent: Last Vital Signs Temp 36.9 C 11/24/18 06:00 Pulse 78 11/24/18 06:00 Resp 18 11/24/18 06:00 BP 100/55 L 11/24/18 06:00 Pulse Ox 100 11/24/18 06:00 Weight - Most Recent: 37.058 kg I&O - Last 24 Hours: Intake & Output 11/23/18 11/24/18 11/24/18 22:59 06:59 14:59 Intake Total 920 1413 Output Total 200 1500 Balance 720 -87 Lab Results Last 24 Hours: Laboratory Results - last 24 hr 11/23/18 11/24/18 11/24/18 Range/Units 17:54 06:37 06:37 WBC 8.3 (4.0-10.0) x10^3/uL RBC 3.60 L (4.00-5.50) x10^6/uL Hgb 11.1 L D (12.0-16.0) g/dL Hct 33.1 (33.0-47.0) % MCV 91.9 D (78.0-93.0) fL MCH 30.8 (26.0-32.0) pg MCHC 33.5 (32.0-36.0) g/dL RDW Coeff of Brianda 13.0 (10.0-15.0) % Plt Count 626 H (130-400) x10^3/uL Add Manual Diff Yes Neutrophils % (Manual) 50 (50-80) % Band Neutrophils % 4 (0-6) % Lymphocytes % (Manual) 27 (25-50) % Monocytes % (Manual) 14 H (2-11) % Eosinophils % (Manual) 4 (0-4) % Basophils % (Manual) 1 (0-1) % Platelet Estimate Increased H Sodium 124 L* 128 L* (136-145) mmol/L Potassium 2.3 L* D 2.8 L* (3.5-5.1) mmol/L Chloride 85 L 95 L (98-107) mmol/L Carbon Dioxide 20 L 20 L (21-32) mmol/L Anion Gap 21.3 H 15.8 (10-20) mmol/L BUN 73 H* 61 H (7-18) mg/dL Creatinine 2.3 H D 1.9 H (0.55-1.02) mg/dL Est Cr Clr Drug Dosing 18.07 21.87 mL/min Estimated GFR (MDRD) 23 29 BUN/Creatinine Ratio 32.10 Glucose 93 144 H (74-106) mg/dL Calcium 9.1 8.3 L (8.5-10.1) mg/dL Phosphorus 2.7 (2.6-4.7) mg/dL Magnesium 3.1 H (1.8-2.4) mg/dL C-Reactive Protein < 0.2 (<=0.9) mg/dL Albumin 3.2 L (3.4-5.0) g/dL Med Orders - Current: Current Medications Acetaminophen (Tylenol Extra Strength) 1,000 mg PO TID PRN PRN Reason: Pain Bethanechol Chloride (Urecholine) 25 mg PO TID PRN PRN Reason: Abdominal Pain Calamine/Phenol (Calmoseptine) 0 gm TOP Q2H PRN PRN Reason: Rash Dicyclomine HCl (Bentyl) 10 mg PO QID [facility] Last Admin: 11/23/18 19:43 Dose: 10 mg Famotidine (Pepcid) 20 mg PO BEDTIME [facility] Last Admin: 11/23/18 19:43 Dose: 20 mg Fluticasone Propionate (Flonase) 0 gm NASBOTH BID [facility] Last Admin: 11/23/18 19:45 Dose: Not Given Gabapentin (Neurontin) 100 mg PO TID [facility] Last Admin: 11/23/18 19:43 Dose: 100 mg Hydrocortisone (Hydrocortisone 1% Crm) 0 gm TOP TID PRN PRN Reason: irritation Hydrocortisone (Hydrocortisone 1% Crm) 0 gm TOP DAILY [facility] Hydromorphone HCl (Dilaudid) 2 mg PO Q4H PRN PRN Reason: Pain Last Admin: 11/24/18 05:59 Dose: 2 mg Potassium Chloride/Sodium Chloride (Normal Saline With 40 Meq Kcl) 1,000 mls @ 100 mls/hr IV ASDIRECTED [facility] Last Admin: 11/24/18 03:05 Dose: 100 mls/hr Lactobacillus Rhamnosus (Culturelle) 1 cap PO DAILY [facility] Melatonin (Melatonin) 6 mg PO BEDTIME [facility] Last Admin: 11/23/18 19:42 Dose: 6 mg Metoclopramide HCl (Reglan) 5 mg PO QIDACANDBED [facility] Last Admin: 11/24/18 05:59 Dose: 5 mg Mirtazapine (Remeron) 15 mg PO BEDTIME [facility] Last Admin: 11/23/18 19:43 Dose: 15 mg Dronabinol [Marinol] (5mg (Own Supply)) 0 mg PO BIDAC [facility] Last Admin: 11/24/18 05:59 Dose: 5 mg Omeprazole (Omeprazole) 40 mg PO BIDAC [facility] Last Admin: 11/24/18 05:59 Dose: 40 mg Prednisone (Prednisone) 30 mg PO DAILY [facility] Simethicone (Simethicone) 80 mg PO QID PRN PRN Reason: Gas Trimethoprim/Sulfamethoxazole (Septra Ds) 1 tab PO MOWEFR@08 [facility] Discontinued Medications Potassium Chloride 20 meq/ (Premix) 50 mls @ 20 mls/hr IV ONETIME ONE Stop: 11/23/18 16:05 Last Admin: 11/23/18 14:00 Dose: 20 mls/hr Magnesium Sulfate 2 gm/ Premix 50 mls @ 25 mls/hr IV ONETIME ONE Stop: 11/23/18 20:30 Last Admin: 11/23/18 20:24 Dose: 25 mls/hr Potassium Bicarbonate (Klor-Con Ef) 25 meq PO BIDMEALS [facility] Potassium Bicarbonate (Klor-Con Ef) 25 meq PO BID [facility] Last Admin: 11/23/18 19:42 Dose: 25 meq Potassium Chloride (Klor-Con M20) 40 meq PO ONETIME ONE Stop: 11/23/18 19:47 Last Admin: 11/23/18 20:24 Dose: 40 meq - Exam General: Alert, Oriented, Cooperative, No Acute Distress HEENT: Pupils Equal, Pupils Reactive, Mucous Membr. Moist/[place] Neck: Supple, Trachea Midline, No Thyromegaly. No: Lymphadenopathy Lungs: Clear to Auscultation, Normal Respiratory Effort Cardiovascular: Regular Rate, Regular Rhythm, No Murmurs GI/Abdominal Exam: Soft, Non-Tender, No Organomegaly, No Distention, No Mass, Abnormal Bowel Sounds (hyperactive) Extremities: Non-Tender, No Pedal Edema, Normal Capillary Refill Peripheral Pulses: 2+: Radial (L), Radial (R) Skin: Warm, Dry, Intact - Problem List & Annotations (1) Dehydration SNOMED Code(s): 77653349 Code(s): E86.0 - DEHYDRATION Status: Acute Current Visit: No (2) CHARIS (acute kidney injury) SNOMED Code(s): 91941813 Code(s): N17.9 - ACUTE KIDNEY FAILURE, UNSPECIFIED Status: Acute Current Visit: No (3) Chronic kidney disease SNOMED Code(s): 401946533 Code(s): N18.9 - CHRONIC KIDNEY DISEASE, UNSPECIFIED Status: Chronic Current Visit: Yes Qualifiers: Chronic kidney disease stage: stage 3 (moderate) Qualified Code(s): N18.3 - Chronic kidney disease, stage 3 (moderate) (4) Hyponatremia SNOMED Code(s): 50084067 Code(s): E87.1 - HYPO-OSMOLALITY AND HYPONATREMIA Status: Acute Current Visit: No (5) Hypokalemia SNOMED Code(s): 07417676 Code(s): E87.6 - HYPOKALEMIA Status: Acute Priority: Medium Current Visit: No (6) Crohns disease SNOMED Code(s): 67587321 Code(s): K50.90 - CROHN'S DISEASE, UNSPECIFIED, WITHOUT COMPLICATIONS Status: Chronic Current Visit: Yes Qualifiers: Gastrointestinal tract location: unspecified location Digestive disease complication type: unspecified complication Qualified Code(s): K50.919 - Crohn 's disease, unspecified, with unspecified complications (7) Nausea & vomiting SNOMED Code(s): 04985308 Code(s): R11.2 - NAUSEA WITH VOMITING, UNSPECIFIED Status: Acute Current Visit: Yes (8) Chronic abdominal pain SNOMED Code(s): 776205557 Code(s): R10.9 - UNSPECIFIED ABDOMINAL PAIN; G89.29 - OTHER CHRONIC PAIN Status: Chronic Current Visit: Yes (9) Severe malnutrition SNOMED Code(s): 37299019 Code(s): E43 - UNSPECIFIED SEVERE PROTEIN-CALORIE MALNUTRITION Status: Chronic Current Visit: Yes (10) On tube feeding diet SNOMED Code(s): 66964891 Code(s): Z78.9 - OTHER SPECIFIED HEALTH STATUS Status: Chronic Current Visit: Yes (11) Anxiety SNOMED Code(s): 07246879 Code(s): F41.9 - ANXIETY DISORDER, UNSPECIFIED Status: Acute Current Visit: Yes (12) Anemia SNOMED Code(s): 413133069 Code(s): D64.9 - ANEMIA, UNSPECIFIED Status: Chronic Current Visit: Yes Qualifiers: Anemia type: iron deficiency Iron deficiency anemia type: other iron deficiency Qualified Code(s): D50.8 - Other iron deficiency anemias - Problem List Review Problem List Initiated/Reviewed/Updated: Yes - My Orders Last 24 Hours: My Active Orders 11/23/18 13:08 Patient Status [ADT] Routine Oxygen Therapy [RC] .PRN Up With Assistance [RC] ASDIRECTED VTE/DVT Education [RC] .PRN Vital Signs [RC] 06,10,14,18,,02 Anticoagulation Contraindications VTE [AST] Per Unit Routine Resuscitation Status Routine 11/23/18 13:09 Cardiac Monitoring [RC] 06,10,14,18,22,02 Notify Provider Vital Signs [RC] 06,10,14,18,22,02 11/23/18 13:15 Sodium Chloride 0.9% with KCl [Normal Saline with 40 mEq KCl] 1,000 ml IV ASDIRECTED 11/23/18 13:18 Acetaminophen [Tylenol Extra Strength] 1,000 mg PO TID PRN Bethanechol [Urecholine] 25 mg PO TID PRN HYDROmorphone [Dilaudid] 2 mg PO Q4H PRN Hydrocortisone [Hydrocortisone 1% Crm] 0 gm TOP TID PRN Menthol/Zinc Oxide [Calmoseptine] 0 gm TOP Q2H PRN Simethicone 80 mg PO QID PRN 11/23/18 13:45 Metoclopramide [Reglan] 5 mg PO QIDACANDBED 11/23/18 16:00 Dicyclomine [Bentyl] 10 mg PO QID 11/23/18 17:00 Dronabinol [Marinol] 0 mg PO BIDAC Omeprazole 40 mg PO BIDAC 11/23/18 20:00 Famotidine [Pepcid] 20 mg PO BEDTIME Fluticasone Propionate [Flonase] 0 gm NASBOTH BID Gabapentin [Neurontin] 100 mg PO TID Melatonin 6 mg PO BEDTIME Mirtazapine [Remeron] 15 mg PO BEDTIME 11/23/18 Dinner Regular Diet [DIET] 11/24/18 08:00 Hydrocortisone [Hydrocortisone 1% Crm] 0 gm TOP DAILY Lactobacillus Rhamnosus GG [Culturelle] 1 cap PO DAILY predniSONE 30 mg PO DAILY 11/25/18 08:00 Sulfamethoxazole/Trimethoprim [Septra DS] 1 tab PO MOWEFR@08 - Assessment Assessment:: 43 yo female admitted with dehydration, CHARIS, and hypokalemia secondary to inability to tolerate tube feedings at goal rate since hospital dismissal. Feeling much better today but not back to normal. Labs improving. - Plan Plan:: #1 Dehydration #2 Acute Kidney Injury #3 Chronic Kidney Disease #4 Hyponatremia - Patient symptoms and labs improved today; she is tolerating the current fluid rate. - Therefore, will continue 0.9% NaCl with 40 of KCl @ 100 cc/hr. - She can take fluids and food by mouth ad keon. - Recheck labs in the am. #5 Hypokalemia - Improved to >2.5 today; therefore, telemetry will be discontinued. - Magnesium is actually high so she does not require further replacement for this. - Will give another IV dose of 20 mEq given patient is not likely to tolerate the PO load required to get her potassium to goal. - Resume her PO supplementation. - Recheck lab in the am. #6 Crohn's Disease #7 Nausea and vomiting #8 Chronic Abdominal Pain - No evidence of any flare at this time. - Continue prednisone at 30 mg daily, which is what she is supposed to be on now. - Restart gabapentin at low dose. Will adjust dosing depending on renal function. - Continue all home medications except for amitriptyline, trazodone, zofran, and phenergan in light of risk for QTc prolongation in the setting of severe hypokalemia. Will look to resume these once her potassium is >3. #9 Severe Malnutrition #10 On Tube Feedings - Patient desires to hold tube feedings until this afternoon, which is reasonable. Will reassess at lunch and then decide from there. - Will potentially restart this pm at 5 cc/hr. #11 Anxiety, resolved - Now resolved. - Will monitor for recurrence. #12 Anemia, chronic - Hgb is still not back to baseline of usual ~9. - Monitor daily. Patient was admitted to acute status due to above diagnoses/interventions - anticipate she will be admitted for 3-4 days total. If requiring longer hospitalization than that, she is aware that she would likely need transfer to [place] at that point. Continue IV fluids and potassium repletion. Recheck labs in am. Hold off on VTE prophylaxis given report of intermittent GI bleed; will encourage ambulation today. She wishes to be full code - discussed on admission.
[2018-11-24] MEDS ORDERED: Potassium Chloride Riders 20 MEQ in Premix Bag 1 BAG IV ONE (08:39)
[2018-11-24] MEDS: Potassium Bicarbonate 25 MEQ Tab.EFF PO SCH ×2 (08:57→19:39)
[2018-11-24] MEDS: Melatonin 3 MG Tab PO SCH (19:39)
[2018-11-24] MEDS: Famotidine 20 MG Tab PO SCH (19:39)
[2018-11-24] MEDS: Mirtazapine 15 MG Tab PO SCH (19:40)
[2018-11-24] MEDS: Simethicone 80 MG Tab.Chew PO PRN (20:34)
[2018-11-25] MEDS: Sodium Chloride 0.9% with KCl 1,000 ML IV SCH (03:40)
[2018-11-25] MEDS: Metoclopramide 5 MG Tab PO SCH ×4 (06:02→20:03)
[2018-11-25] MEDS: HYDROmorphone 2 MG Tab PO PRN ×3 (06:02→22:31)
[2018-11-25] MEDS: Omeprazole 20 MG Cap.CR PO SCH ×2 (06:02→16:51)
[2018-11-25 07:01] LABS: ANION GAP 13.2 mmol/L (10-20)
[2018-11-25] MEDS ORDERED: Sulfamethoxazole/Trimethoprim 800-160 MG Tab PO SCH (08:00)
[2018-11-25] MEDS: Gabapentin 100 MG Cap PO SCH ×3 (08:09→20:03)
[2018-11-25] MEDS: Potassium Bicarbonate 25 MEQ Tab.EFF PO SCH ×2 (08:09→19:59)
[2018-11-25] MEDS: predniSONE 10 MG Tab PO SCH (08:09)
[2018-11-25] MEDS: Lactobacillus Rhamnosus GG (Probiotic) Cap PO SCH (08:09)
[2018-11-25] MEDS: Dicyclomine 10 MG Cap PO SCH ×3 (08:10→16:51)
[2018-11-25] MEDS: Fluticasone Propionate Nasal Spray 16 GM Bottle NASBOTH SCH ×2 (08:11→23:07)
[2018-11-25] MEDS: Hydrocortisone 1% Crm 30 GM Tube TOP SCH (08:11)
--- NOTE | 2018-11-25 08:34 | PCM.PN ---
- General Info Date of Service: 11/25/18 Subjective Update: 43 yo female hospital day #3 for dehydration and CHARIS secondary to intolerance to tube feeds. Patient had an uneventful night. Has tolerated the tube feeds without any issues. Abdominal pain is still present but is better today. Bowel movements have picked up since resuming tube feeds but she denies any blood in the stools. No fever or chills. Her strength continues to improve and she has been up walking in the hallways frequently. - Review of Systems General: Reports: No Symptoms HEENT: Reports: No Symptoms Pulmonary: Reports: No Symptoms Cardiovascular: Reports: No Symptoms Gastrointestinal: Reports: Abdominal Pain Genitourinary: Reports: No Symptoms Musculoskeletal: Reports: No Symptoms Skin: Reports: No Symptoms Neurological: Reports: No Symptoms - Patient Data Vitals - Most Recent: Last Vital Signs Temp 36.8 C 11/25/18 05:50 Pulse 70 11/25/18 05:50 Resp 16 11/25/18 05:50 BP 83/55 L 11/25/18 05:50 Pulse Ox 100 11/25/18 05:50 Weight - Most Recent: 37.058 kg I&O - Last 24 Hours: Intake & Output 11/24/18 11/25/18 11/25/18 22:59 06:59 14:59 Intake Total 2950 2565 Output Total 800 900 Balance 2150 1665 Lab Results Last 24 Hours: Laboratory Results - last 24 hr 11/25/18 11/25/18 Range/Units 06:18 06:18 WBC 7.6 (4.0-10.0) x10^3/uL RBC 2.94 L (4.00-5.50) x10^6/uL Hgb 9.3 L D (12.0-16.0) g/dL Hct 28.1 L (33.0-47.0) % MCV 95.6 H D (78.0-93.0) fL MCH 31.6 (26.0-32.0) pg MCHC 33.1 (32.0-36.0) g/dL RDW Coeff of Brianda 13.1 (10.0-15.0) % Plt Count 481 H D (130-400) x10^3/uL Neut % (Auto) 47.3 L (50.0-80.0) % Lymph % (Auto) 33.0 (25.0-50.0) % [place] % (Auto) 11.1 H (2.0-11.0) % Eos % (Auto) 7.1 H (0.0-4.0) % Baso % (Auto) 1.5 H (0.2-1.2) % Sodium 139 D (136-145) mmol/L Potassium 3.2 L (3.5-5.1) mmol/L Chloride 109 H D (98-107) mmol/L Carbon Dioxide 20 L (21-32) mmol/L Anion Gap 13.2 (10-20) mmol/L BUN 27 H D (7-18) mg/dL Creatinine 1.2 H (0.55-1.02) mg/dL Est Cr Clr Drug Dosing 34.63 mL/min Estimated GFR (MDRD) 49 BUN/Creatinine Ratio 22.50 Glucose 87 (74-106) mg/dL Calcium 8.1 L (8.5-10.1) mg/dL Phosphorus 2.0 L (2.6-4.7) mg/dL Albumin 2.6 L (3.4-5.0) g/dL Med Orders - Current: Current Medications Acetaminophen (Tylenol Extra Strength) 1,000 mg PO TID PRN PRN Reason: Pain Bethanechol Chloride (Urecholine) 25 mg PO TID PRN PRN Reason: Abdominal Pain Calamine/Phenol (Calmoseptine) 0 gm TOP Q2H PRN PRN Reason: Rash Dicyclomine HCl (Bentyl) 10 mg PO QID [facility] Last Admin: 11/25/18 08:10 Dose: 10 mg Famotidine (Pepcid) 20 mg PO BEDTIME [facility] Last Admin: 11/24/18 19:39 Dose: 20 mg Fluticasone Propionate (Flonase) 0 gm NASBOTH BID [facility] Last Admin: 11/25/18 08:11 Dose: Not Given Gabapentin (Neurontin) 100 mg PO TID [facility] Last Admin: 11/25/18 08:09 Dose: 100 mg Hydrocortisone (Hydrocortisone 1% Crm) 0 gm TOP TID PRN PRN Reason: irritation Hydrocortisone (Hydrocortisone 1% Crm) 0 gm TOP DAILY [facility] Last Admin: 11/25/18 08:11 Dose: Not Given Hydromorphone HCl (Dilaudid) 2 mg PO Q4H PRN PRN Reason: Pain Last Admin: 11/25/18 06:02 Dose: 2 mg Lactobacillus Rhamnosus (Culturelle) 1 cap PO DAILY [facility] Last Admin: 11/25/18 08:09 Dose: 1 cap Melatonin (Melatonin) 6 mg PO BEDTIME [facility] Last Admin: 11/24/18 19:39 Dose: 6 mg Metoclopramide HCl (Reglan) 5 mg PO QIDACANDBED [facility] Last Admin: 11/25/18 06:02 Dose: 5 mg Mirtazapine (Remeron) 15 mg PO BEDTIME [facility] Last Admin: 11/24/18 19:40 Dose: 15 mg Dronabinol [Marinol] (5mg (Own Supply)) 0 mg PO BIDAC [facility] Last Admin: 11/25/18 06:02 Dose: 5 mg Omeprazole (Omeprazole) 40 mg PO BIDAC [facility] Last Admin: 11/25/18 06:02 Dose: 40 mg Potassium Bicarbonate (Klor-Con Ef) 25 meq PO BID [facility] Last Admin: 11/25/18 08:09 Dose: 25 meq Prednisone (Prednisone) 30 mg PO DAILY [facility] Last Admin: 11/25/18 08:09 Dose: 30 mg Simethicone (Simethicone) 80 mg PO QID PRN PRN Reason: Gas Last Admin: 11/24/18 20:34 Dose: 80 mg Trimethoprim/Sulfamethoxazole (Septra Ds) 1 tab PO MOWEFR@08 [facility] Last Admin: 11/25/18 08:09 Dose: 1 tab Discontinued Medications Potassium Chloride/Sodium Chloride (Normal Saline With 40 Meq Kcl) 1,000 mls @ 100 mls/hr IV ASDIRECTED [facility] Last Admin: 11/25/18 03:40 Dose: 100 mls/hr Potassium Chloride 20 meq/ (Premix) 50 mls @ 20 mls/hr IV ONETIME ONE Stop: 11/23/18 16:05 Last Admin: 11/23/18 14:00 Dose: 20 mls/hr Magnesium Sulfate 2 gm/ Premix 50 mls @ 25 mls/hr IV ONETIME ONE Stop: 11/23/18 20:30 Last Admin: 11/23/18 20:24 Dose: 25 mls/hr Potassium Chloride 20 meq/ (Premix) 50 mls @ 25 mls/hr IV ONETIME ONE Stop: 11/24/18 10:38 Last Admin: 11/24/18 08:57 Dose: 25 mls/hr Potassium Bicarbonate (Klor-Con Ef) 25 meq PO BIDMEALS [facility] Potassium Bicarbonate (Klor-Con Ef) 25 meq PO BID [facility] Last Admin: 11/23/18 19:42 Dose: 25 meq Potassium Chloride (Klor-Con M20) 40 meq PO ONETIME ONE Stop: 11/23/18 19:47 Last Admin: 11/23/18 20:24 Dose: 40 meq - Exam General: Alert, Oriented, Cooperative, No Acute Distress HEENT: Mucous Membr. Moist/[place] Neck: Supple, Trachea Midline, No Thyromegaly. No: Lymphadenopathy Lungs: Clear to Auscultation, Normal Respiratory Effort Cardiovascular: Regular Rate, Regular Rhythm, No Murmurs GI/Abdominal Exam: Normal Bowel Sounds, Soft, Non-Tender, No Organomegaly, No Distention, No Mass Extremities: Non-Tender, No Pedal Edema, Normal Capillary Refill Peripheral Pulses: 2+: Radial (L), Radial (R) Skin: Warm, Dry, Intact - Problem List & Annotations (1) Hypokalemia SNOMED Code(s): 21746602 Code(s): E87.6 - HYPOKALEMIA Status: Acute Priority: Medium Current Visit: No (2) Dehydration SNOMED Code(s): 65075152 Code(s): E86.0 - DEHYDRATION Status: Resolved Current Visit: No (3) CHARIS (acute kidney injury) SNOMED Code(s): 94222956 Code(s): N17.9 - ACUTE KIDNEY FAILURE, UNSPECIFIED Status: Resolved Current Visit: No (4) Chronic kidney disease SNOMED Code(s): 408754719 Code(s): N18.9 - CHRONIC KIDNEY DISEASE, UNSPECIFIED Status: Chronic Current Visit: Yes Qualifiers: Chronic kidney disease stage: stage 3 (moderate) Qualified Code(s): N18.3 - Chronic kidney disease, stage 3 (moderate) (5) Hyponatremia SNOMED Code(s): 77868454 Code(s): E87.1 - HYPO-OSMOLALITY AND HYPONATREMIA Status: Resolved Current Visit: No (6) Crohns disease SNOMED Code(s): 99354777 Code(s): K50.90 - CROHN'S DISEASE, UNSPECIFIED, WITHOUT COMPLICATIONS Status: Chronic Current Visit: Yes Qualifiers: Gastrointestinal tract location: unspecified location Digestive disease complication type: unspecified complication Qualified Code(s): K50.919 - Crohn 's disease, unspecified, with unspecified complications (7) Nausea & vomiting SNOMED Code(s): 07559324 Code(s): R11.2 - NAUSEA WITH VOMITING, UNSPECIFIED Status: Resolved Current Visit: Yes (8) Chronic abdominal pain SNOMED Code(s): 383991497 Code(s): R10.9 - UNSPECIFIED ABDOMINAL PAIN; G89.29 - OTHER CHRONIC PAIN Status: Chronic Current Visit: Yes (9) Severe malnutrition SNOMED Code(s): 47702926 Code(s): E43 - UNSPECIFIED SEVERE PROTEIN-CALORIE MALNUTRITION Status: Chronic Current Visit: Yes (10) On tube feeding diet SNOMED Code(s): 84113971 Code(s): Z78.9 - OTHER SPECIFIED HEALTH STATUS Status: Chronic Current Visit: Yes (11) Anxiety SNOMED Code(s): 65271761 Code(s): F41.9 - ANXIETY DISORDER, UNSPECIFIED Status: Resolved Current Visit: Yes (12) Anemia SNOMED Code(s): 390083015 Code(s): D64.9 - ANEMIA, UNSPECIFIED Status: Chronic Current Visit: Yes Qualifiers: Anemia type: iron deficiency Iron deficiency anemia type: other iron deficiency Qualified Code(s): D50.8 - Other iron deficiency anemias - Problem List Review Problem List Initiated/Reviewed/Updated: Yes - My Orders Last 24 Hours: My Active Orders 11/24/18 08:00 Hydrocortisone [Hydrocortisone 1% Crm] 0 gm TOP DAILY Lactobacillus Rhamnosus GG [Culturelle] 1 cap PO DAILY predniSONE 30 mg PO DAILY 11/24/18 08:45 Potassium Bicarbonate [Klor-Con EF] 25 meq PO BID 11/24/18 19:00 Tube Feeding [Enteral Feedings] [RC] ASDIRECTED 11/25/18 08:00 Sulfamethoxazole/Trimethoprim [Septra DS] 1 tab PO MOWEFR@08 11/26/18 05:11 BASIC METABOLIC PANEL,BMP [CHEM] Routine CBC WITH AUTO DIFF [HEME] Routine - Assessment Assessment:: 43 yo female admitted with dehydration, CHARIS, and hypokalemia secondary to inability to tolerate tube feedings at goal rate since hospital dismissal. Symptoms continue to improve. Labs looking much better. - Plan Plan:: #1 Hypokalemia - K is much better today. Although not in the normal range, this is essentially her normal. - Will continue with her oral repletion only and recheck tomorrow am. 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 - Will d/c IV fluids today. - Patient can ad keon PO. - Recheck labs tomorrow am. #6 Crohn's Disease #7 Nausea and vomiting #8 Chronic Abdominal Pain - No evidence of any flare at this time. - Continue prednisone at 30 mg daily. - Increase gabapentin to 200 mg TID now that her renal function has improved. - Will also resume her amitriptyline and trazodone. - Continue to hold zofran and phenergan in light of risk for QTc prolongation given her nausea is well controlled on the reglan. #9 Severe Malnutrition #10 On Tube Feedings - Patient is tolerating tube feeds without any issues. - Will increase rate to 15 cc/hr. If this goes ok throughout the rest of the day , will increase further to 20 cc/hr later today. #11 Anxiety, resolved - Now resolved. - Will monitor for recurrence. #12 Anemia, chronic - Hgb back to baseline today. - Monitor daily. Patient will remain on acute status today - anticipate dismissal in 2 days to allow time to prove she can maintain hydration on her own and also to allow for very close outpatient follow-up upon dismissal. Recheck labs in am. Hold off on VTE prophylaxis as she is walking a lot in the hallways - encouraged ambulation. She wishes to be full code - discussed on admission.
[2018-11-25] MEDS: Mirtazapine 15 MG Tab PO SCH (20:03)
[2018-11-25] MEDS: Famotidine 20 MG Tab PO SCH (20:03)
[2018-11-25] MEDS: Melatonin 3 MG Tab PO SCH (20:03)
[2018-11-25] MEDS: Simethicone 80 MG Tab.Chew PO PRN (22:26)
[2018-11-26] MEDS: Omeprazole 20 MG Cap.CR PO SCH ×2 (06:40→16:01)
[2018-11-26] MEDS: Dicyclomine 10 MG Cap PO SCH ×5 (06:42→20:28)
[2018-11-26] MEDS: Gabapentin 100 MG Cap PO SCH ×3 (07:59→20:28)
[2018-11-26] MEDS: Potassium Bicarbonate 25 MEQ Tab.EFF PO SCH ×2 (07:59→20:27)
[2018-11-26] MEDS: Lactobacillus Rhamnosus GG (Probiotic) Cap PO SCH (07:59)
[2018-11-26] MEDS: predniSONE 10 MG Tab PO SCH (07:59)
[2018-11-26 08:20] LABS: ANION GAP 11.8 mmol/L (10-20)
[2018-11-26] MEDS: Fluticasone Propionate Nasal Spray 16 GM Bottle NASBOTH SCH ×2 (09:36→20:52)
[2018-11-26] MEDS: Hydrocortisone 1% Crm 30 GM Tube TOP SCH (09:36)
[2018-11-26] MEDS ORDERED: Potassium Bicarbonate 25 MEQ Tab.EFF PO SCH (10:45)
[2018-11-26] MEDS: Metoclopramide 5 MG Tab PO SCH ×4 (11:00→20:31)
--- NOTE | 2018-11-26 12:06 | PN ---
Progress Note for MARYSOL LORA Date: 11/26/2018 Room #: VM.204 HISTORY: A 43-year-old, hospital day #4 for acute renal failure due to volume depletion and dehydration in the setting of underlying Crohn disease. The patient has had multiple similar hospital admissions over the last several months. She was diagnosed with Crohn's earlier this year and is on Remicade now and 35 mg daily of prednisone. She tells me she has lost like 20 pounds. She also has a jejunal feeding tube, but is able to eat. She admits she does not always take her potassium every day because she has had high potassiums when she has went into renal failure in the past. She is having some stomach pain, but does not rated as severe, the Bentyl helps. She also received some oral Dilaudid last evening. She normally takes that occasionally at home. She has normal loose stools for her. No blood. No fever. No chills. No cough. PHYSICAL EXAMINATION: Vital Signs: Objectively, her temperature 99.8, pulse 77, blood pressure 94/47, respiratory rate 12, O2 99 on room air. General: She is in no acute distress. Heart: Regular rate and rhythm. S1, S2 without murmur. Lungs: Sounds are clear to auscultation bilaterally without crackles or wheezes. GI: She does have a jejunal feeding tube in place. She has positive bowel sounds, but there is some mild tenderness generalized to palpation. Extremities: Warm and dry. No edema. Mental Status: She is alert. She is orientated x3. ASSESSMENT: 1. Acute renal failure secondary to volume depletion. The patient's creatinine had improved all the way down to 1.2. She has been off fluids 24 hours declined up slightly to 1.3, but BUN is 20. We will continue off fluids, but increase her feeding to 25 mL/h. 2. Hypokalemia. We will increase her potassium up to 50 three times a day. I informed her that when kidney start working again, they usually get rid of more potassium. We will check a potassium tomorrow. We will also start her on low-dose magnesium and magnesium level was 1.8. 3. Anemia, probably due to some hemodilution. Hemoglobin actually improved. We will repeat tomorrow. 4. Chronic kidney disease, stage 3. 5. Hyponatremia probably due to dehydration, this has resolved. Sodium now 137. 6. Severe malnutrition, on tube feeds. 7. Underlying Crohn disease. Continue her home medications. 8. History of anxiety. PLAN: At this point, patient will continue acute cares due to her low potassium. We discussed even potentially checking later today, but at this point, we will hold off until tomorrow and hopefully things will be stable and she is able to return home for followup outpatient in the clinic. We also discussed possible IV saline infusions to prevent further episodes of dehydration. I encouraged for her p.o. intake. She is also on gabapentin for pain control as well and has nausea medications available. MKA: 11/26/2018 11:48:29 MODL: 11/26/2018 12:01:02 /[id number]
[2018-11-26] MEDS: Magnesium Oxide 400 MG Tab PO SCH (12:36)
[2018-11-26] MEDS: Mirtazapine 15 MG Tab PO SCH (20:28)
[2018-11-26] MEDS: Famotidine 20 MG Tab PO SCH (20:28)
[2018-11-26] MEDS: Melatonin 3 MG Tab PO SCH (20:28)
[2018-11-26] MEDS: HYDROmorphone 2 MG Tab PO PRN (20:35)
[2018-11-27] MEDS: Omeprazole 20 MG Cap.CR PO SCH (06:40)
[2018-11-27] MEDS: Metoclopramide 5 MG Tab PO SCH ×2 (06:41→11:15)
[2018-11-27 08:02] LABS: ANION GAP 13.5 mmol/L (10-20)
[2018-11-27] MEDS: Lactobacillus Rhamnosus GG (Probiotic) Cap PO SCH (08:26)
[2018-11-27] MEDS: Potassium Bicarbonate 25 MEQ Tab.EFF PO SCH (08:26)
[2018-11-27] MEDS: predniSONE 10 MG Tab PO SCH (08:26)
[2018-11-27] MEDS: Dicyclomine 10 MG Cap PO SCH ×2 (08:26→11:51)
[2018-11-27] MEDS: Fluticasone Propionate Nasal Spray 16 GM Bottle NASBOTH SCH (08:27)
[2018-11-27] MEDS: Gabapentin 100 MG Cap PO SCH ×2 (08:27→11:51)
[2018-11-27] MEDS: Hydrocortisone 1% Crm 30 GM Tube TOP SCH (08:27)
[2018-11-27] MEDS: Magnesium Oxide 400 MG Tab PO SCH (08:27)
[2018-11-27] MEDS ORDERED: Lactated Ringers 1,000 ML IV ONE (10:02)
--- NOTE | 2018-11-27 11:03 | DISCH ---
PRIMARY DISCHARGE DIAGNOSES: 1. Acute renal failure due to volume depletion and dehydration. Creatinine improved to 1.3 on discharge. 2. Hypokalemia, probably due to volume depletion. The patient is on potassium supplements. Potassium was 3.5 on discharge. 3. Anemia chronic, but worsening likely related to hemodilution. However, hemoglobin improved up to 11.3 on discharge and at one point it was 9.3, but she had no signs of bleeding. 4. Underlying Crohn disease, on treatments, currently 30 mg of prednisone and outpatient Remicade. 5. Chronic kidney disease stage 3. 6. Hyponatremia, likely due to dehydration, resolved. 7. History of anxiety. 8. Severe malnutrition, on tube feeds, but unable to tolerate goal feedings. 9. History of Clostridium difficile and history of blood in stool. No symptoms to suggest that on her current stay. REASON FOR ADMISSION: On the date of her admission, this 43-year-old female came in and was found to be quite dehydrated. Her creatinine was up to 2.3, BUN 73, potassium 2.3, sodium 124. She was admitted. She was placed on IV fluids. Her condition improved significantly in just 24 hours of fluid. Her creatinine came all the way down to 1.2 on the . Fluids were held to see if she could maintain. We increased her tube feeds up to 25 mL, but on the next hospital day, her potassium was 2.8. This was replaced orally with 125 mEq and she admits to me she takes about only 25 at home, but does not always take it because when she gets into trouble, she will sometimes have high potassiums. On the next day, the day of discharge, her potassium was 3.5, her creatinine was still stable at 1.3, but her blood pressure was running lower now like 80/37. Her white count had creeped up from 10 to 12.8. Her hemoglobin also went up a point so the thought was she was probably getting slightly more dehydrated and discussion was had with her about outpatient IV fluids to help prevent readmissions while she is doctoring with the [facility] to get her Crohn disease under control. The patient also had some abdominal pain, which she felt was her baseline pain. She did have her last dose of Dilaudid 2 mg on the evening of the . She was also on her other medications which would include Neurontin and Bentyl for pain. She also takes routine Reglan and other nausea medications. She felt her stool output was loose, but at her baseline, and she had 2 recorded yesterday. She does chronically now take Bactrim 3 times a week for prophylaxis, but was not on any other antibiotics during her stay. She had no cough. No breathing trouble. No fevers. No burning with urination. Overall, the patient deemed stable for discharge. DISCHARGE PHYSICAL EXAMINATION: Vital Signs: Included temperature 98.4, pulse 83, blood pressure 80/37 at 6 a.m., but she will have a repeat reading prior to discharge and after fluids, respiratory rate is 14, O2 of 99 on room air. General: She is in no acute distress. She is quite frail and thin. Lungs: Lung sounds are clear to auscultation bilaterally without crackles or wheezes. Heart: Regular rate and rhythm. S1, S2 without tachycardia. Abdomen: Positive bowel sounds. Nondistended. It is soft. There is just mild tenderness. She does have a jejunal feeding tube in place. Extremities: Warm and dry. No edema. Mental Status: She is alert. She is orientated x3. Her mood is appropriate. Skin: Does appear caro otherwise. DISCHARGE PLANS AND INSTRUCTIONS: She will follow up with Dr. Oliva in the clinic in 2 days time with repeat lab work, CBC, mag, and BMP prior to that visit. She had no new medications during her stay and due to her short term followup, no new prescriptions were given as she should already have the potassium at home and this was increased to 25 twice daily until she has her repeat lab work. If she has any worsening diarrhea like C. diff again, she should definitely let us know. Due to her reported blood in the past, I did elect to keep her on a PPI as she was previously on. She also continued her probiotics. MKA: 11/27/2018 10:30:48 MODL: 11/27/2018 10:55:10 /[id number]
[2018-11-27] MEDS: Simethicone 80 MG Tab.Chew PO PRN (11:15)
[2018-11-27] MEDS ORDERED: Potassium Bicarbonate 25 MEQ Tab.EFF PO SCH (20:00)
== END 2018-11-27 14:45 | disposition home or self-care (01) | DRG 469 ==
LOC: VM.MS 12:25
PROVIDERS: ADMIT Family Medicine; ATTEND Family Medicine
DX: N17.9 Acute kidney failure, unspecified (principal); E86.0 Dehydration; K50.90 Crohn's disease, unspecified, without complications; D63.8 Anemia in other chronic diseases classified elsewhere; E43 Unspecified severe protein-calorie malnutrition; Z68.1 Body mass index [BMI] 19.9 or less, adult; G89.29 Other chronic pain; M54.9 Dorsalgia, unspecified; N18.3 Chronic kidney disease, stage 3 (moderate); E87.1 Hypo-osmolality and hyponatremia; E87.6 Hypokalemia; F41.9 Anxiety disorder, unspecified; Z88.8 Allergy status to other drugs, medicaments and biological substances; Z79.899 Other long term (current) drug therapy; Z79.52 Long term (current) use of systemic steroids; Z86.19 Personal history of other infectious and parasitic diseases; Z88.0 Allergy status to penicillin; Z90.49 Acquired absence of other specified parts of digestive tract
CPT/HCPCS: 36415; 80048; 80069; 83735; 85025; 86140; 93005; A9270-GY; J3475; J3480; J7120

== ENCOUNTER 2018-11-29 11:58 | Inpatient (IN) | payer BC, OTHER ==
[2018-11-29] MEDS ORDERED: HYDROmorphone 1 MG/ML Syringe IVPUSH PRN (12:18)
[2018-11-29] MEDS ORDERED: methylPREDNISolone Sodium Succinate 40 MG/1 ML SDV IVPUSH ONE (12:20)
[2018-11-29] MEDS ORDERED: Hydrocortisone 2.5% Crm 30 GM Tube TOP PRN (12:31)
--- NOTE | 2018-11-29 12:54 | PCM.HP ---
H&P History of Present Illness - General Date of Service: 11/29/18 Admit Problem/Dx: Admission Diagnosis/Problem Admission Diagnosis/Problem Acute kidney injury Source of Information: Patient History Limitations: Reports: No Limitations - History of Present Illness Initial Comments - Free Text/Narative: Mrs. Cota is a 43 yo female with h/o severe Crohn's complicated by severe malnutrition for which she is on tube feeds who has had increased abdominal pain x 24 hours. She was just hospitalized at the end of last week for dehydration and CHARIS secondary to inability to tolerate tube feeds. She was discharged home 2 days ago in stable condition, tolerating her tube feeds without too much issue. She had been doing well up until yesterday afternoon when she developed increased abdominal pain. She stopped her tube feedings and had some improvement in symptoms but still has significant abdominal pain today. She also had a fairly large bloody bowel movement this morning and has continued with blood tinged stools throughout the day today. She has also had nausea and vomiting today. She has not eaten anything today and has not been drinking much at all. She denies any fever or chills. Symptoms are similar to previous flares of her Crohn's. She also feels generally weak and dizzy as though she is dehydrated again as well. Right Lower Abdomen Pain Score (Numeric/FACES): 9 - Related Data Allergies/Adverse Reactions: Allergies Allergy/AdvReac Type Severity Reaction Status Date / Time codeine Allergy Severe Anaphylactic Verified 11/23/18 14:25 Shock Penicillins Allergy Severe Anaphylactic Verified 11/23/18 14:25 Shock propoxyphene Allergy Severe Anaphylactic Verified 11/23/18 14:25 [From Darvocet-N] Shock lactose AdvReac Diarrhea Verified 11/23/18 14:25 metoclopramide [From Reglan] AdvReac Stomach Verified 11/23/18 14:25 Ache morphine AdvReac Headache Verified 11/23/18 14:25 Home Medications: Home Meds Dicyclomine [Bentyl] 10 mg PO QID 05/03/18 [History] Ondansetron HCl [Ondansetron] 8 mg PO TID PRN 05/03/18 [History] Ranitidine HCl [Ranitidine] 150 mg PO BEDTIME 05/03/18 [History] Vit Calc,Iron,Folic [ Vitamins] 1 tab PO DAILY 05/23/18 [ History] Bethanechol [Urecholine] 25 mg PO TID 09/01/18 [History] Hydrocortisone [Anusol-HC] 1 applic RECTAL DAILY 09/01/18 [History] Lactobacillus Rhamnosus GG [Culturelle] 1 cap PO DAILY 09/01/18 [History] Acetaminophen [Tylenol Extra Strength] 1,000 mg PO TID PRN 11/23/18 [History] Amitriptyline [Elavil] 25 mg PO BEDTIME 11/23/18 [History] Cod Liver Oil/Zinc Oxide [Desitin Diaper Rash 40% Paste] 1 appful TOP Q2H PRN [History] Dronabinol [Marinol] 5 mg PO BIDAC 11/23/18 [History] Fluticasone Propionate [Flonase] 1 spray NASBOTH BID 11/23/18 [History] Gabapentin [Neurontin] 200 mg PO TID 11/23/18 [History] HYDROmorphone [Dilaudid] 2 mg PO Q4H PRN 11/23/18 [History] Hydrocortisone [Anusol-HC] 1 appful RC TID PRN 11/23/18 [History] Melatonin 6 mg PO BEDTIME 11/23/18 [History] Metoclopramide [Reglan] 5 mg PO QID 11/23/18 [History] Mirtazapine [Remeron] 15 mg PO BEDTIME 11/23/18 [History] Omeprazole Magnesium [Prilosec Otc] 40 mg PO BIDAC 11/23/18 [History] Potassium Bicarbonate [Potassium Tablet Eff] 25 meq PO BID 11/23/18 [History] Promethazine [Phenergan] 25 mg PO Q6H PRN 11/23/18 [History] Simethicone 80 mg PO QID PRN 11/23/18 [History] Sulfamethoxazole/Trimethoprim [Bactrim Ds Tablet] 1 tab PO MOWEFR@08 11/23/18 [ History] traZODone HCl [Trazodone HCl] 50 mg PO BEDTIME 11/23/18 [History] predniSONE 30 mg PO DAILY #30 tablet 11/27/18 [Rx] Past Medical History HEENT History: Reports: None Cardiovascular History: Reports: None Respiratory History: Reports: None Gastrointestinal History: Reports: Inflammatory Bowel Disease Other Gastrointestinal History: crohn's disease. 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 Musculoskeletal History: Reports: Back Pain, Chronic Neurological History: Reports: None Psychiatric History: Reports: None Endocrine/Metabolic History: Reports: None Hematologic History: Reports: Anemia Immunologic History: Reports: None Oncologic (Cancer) History: Reports: None Dermatologic History: Reports: None - Infectious Disease History Infectious Disease History: Reports: C-Difficile, Chicken Pox - Past Surgical History HEENT Surgical History: Reports: None GI Surgical History: Reports: Appendectomy, Cholecystectomy, Other (See Below) Other GI Surgeries/Procedures: partial sigmoidectomy Social & Family History - Family History Neurological: Reports: Parkinson's Oncologic: Reports: Brain, Liver - Tobacco Use Smoking Status *Q: Never Smoker - Caffeine Use Caffeine Use: Reports: None - Alcohol Use Alcohol Use History: No Alcohol Use in Last Twelve Months: No - Recreational Drug Use Recreational Drug Use: No - Living Situation & Occupation Living situation: Reports: , with Significant Other (from [place] but staying with her daughter in [place]) 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) H&P Review of Systems - Review of Systems: Review Of Systems: See Below General: Reports: No Symptoms HEENT: Reports: No Symptoms Pulmonary: Reports: No Symptoms Cardiovascular: Reports: No Symptoms Gastrointestinal: Reports: Abdominal Pain, Bloody Stool, Diarrhea, Nausea, Vomiting Genitourinary: Reports: No Symptoms Musculoskeletal: Reports: No Symptoms Skin: Reports: No Symptoms Psychiatric: Reports: No Symptoms Neurological: Reports: No Symptoms Exam - Exam Exam: See Below - Vital Signs Weight: 37.648 kg - Exam General: Alert, Cooperative HEENT: Conjunctiva Clear, Mucosa Moist & [place], Posterior Pharynx Clear, Pupils Equal, Pupils Reactive Neck: Supple, Trachea Midline. No: Lymphadenopathy, Thyromegaly Lungs: Clear to Auscultation, Normal Respiratory Effort Cardiovascular: Regular Rhythm, Normal S1, Normal S2, Tachycardia GI/Abdominal Exam: Normal Bowel Sounds, Soft, No Organomegaly, No Distention, No Mass, Tender (mild diffuse tenderness to palpation without rebound, rigidity , or guarding) Extremities: Non-Tender, No Pedal Edema, Normal Capillary Refill Peripheral Pulses: 2+: Radial (L), Radial (R) Skin: Warm, Dry, Intact *Q Meaningful Use (ADM) - VTE *Q VTE Anticoagulation Contraindications: Medical/Procedure Contrai - Problem List (1) Renal failure (ARF), acute on chronic SNOMED Code(s): 714882773 ICD Code: N17.9 - ACUTE KIDNEY FAILURE, UNSPECIFIED; N18.9 - CHRONIC KIDNEY DISEASE, UNSPECIFIED Status: Acute Current Visit: No Qualifiers: Acute renal failure type: unspecified Chronic kidney disease stage: unspecified stage Qualified Code(s): N17.9 - Acute kidney failure, unspecified ; N18.9 - Chronic kidney disease, unspecified (2) Hyponatremia SNOMED Code(s): 14546784 ICD Code: E87.1 - HYPO-OSMOLALITY AND HYPONATREMIA Status: Acute Current Visit: No (3) Acute Crohn's disease SNOMED Code(s): 60822789, 55976015 ICD Code: K50.90 - CROHN'S DISEASE, UNSPECIFIED, WITHOUT COMPLICATIONS Status: Acute Current Visit: No Qualifiers: Digestive disease complication type: with rectal bleeding Qualified Code(s) : K50.911 - Crohn's disease, unspecified, with rectal bleeding (4) Chronic abdominal pain SNOMED Code(s): 151958471 ICD Code: R10.9 - UNSPECIFIED ABDOMINAL PAIN; G89.29 - OTHER CHRONIC PAIN Status: Chronic Current Visit: No (5) On tube feeding diet SNOMED Code(s): 26712056 ICD Code: Z78.9 - OTHER SPECIFIED HEALTH STATUS Status: Chronic Current Visit: No (6) Severe malnutrition SNOMED Code(s): 64233828 ICD Code: E43 - UNSPECIFIED SEVERE PROTEIN-CALORIE MALNUTRITION Status: Chronic Current Visit: No Problem List Initiated/Reviewed/Updated: Yes Orders Last 24hrs: Active Orders 24 hr Category Date Time Status Patient Status [ADT] Routine ADT 11/29/18 12:15 Ordered Notify Provider Vital Signs [RC] ASDIRECTED Care 11/29/18 12:17 Ordered Oxygen Therapy [RC] PRN Care 11/29/18 12:15 Ordered Up With Assistance [RC] ASDIRECTED Care 11/29/18 12:15 Ordered VTE/DVT Education [RC] PER UNIT ROUTINE Care 11/29/18 12:15 Ordered Vital Signs [RC] Q4H Care 11/29/18 12:15 Ordered Regular Diet [DIET] Diet 11/29/18 Lunch Ordered Acetaminophen [Tylenol Extra Strength] Med 11/29/18 12:31 Ordered 1,000 mg PO TID PRN Amitriptyline [Elavil] Med 11/29/18 20:00 Ordered 25 mg PO BEDTIME Bethanechol [Urecholine] Med 11/29/18 20:00 Ordered 25 mg PO TID Dicyclomine [Bentyl] Med 11/29/18 16:00 Ordered 10 mg PO QID Dronabinol [Marinol] Med 11/29/18 17:00 Ordered 5 mg PO BIDAC Gabapentin [Neurontin] Med 11/29/18 20:00 Ordered 200 mg PO TID HYDROmorphone [Dilaudid] Med 11/29/18 12:18 Ordered 0.5 mg IVPUSH Q4H PRN Hydrocortisone [Anusol-HC] Med 11/29/18 12:31 Ordered 1 appful RC TID PRN Hydrocortisone [Anusol-HC] Med 11/30/18 08:00 Ordered 1 applic RECTAL DAILY Lactobacillus Rhamnosus GG [Culturelle] Med 11/30/18 08:00 Ordered 1 cap PO DAILY Melatonin Med 11/29/18 20:00 Ordered 6 mg PO BEDTIME Metoclopramide Med 11/29/18 16:00 Ordered 5 mg PO QID Mirtazapine [Remeron] Med 11/29/18 20:00 Ordered 15 mg PO BEDTIME Omeprazole Magnesium [Prilosec Otc] Med 11/29/18 17:00 Ordered 40 mg PO BIDAC Potassium Bicarbonate [Klor-Con EF] Med 11/29/18 20:00 Ordered 25 meq PO BID Ranitidine HCl [Ranitidine] Med 11/29/18 20:00 Ordered 150 mg PO BEDTIME Simethicone Med 11/29/18 12:31 Ordered 80 mg PO QID PRN Sodium Chloride 0.9% with KCl 20 mEq @ 100 mL/Hr (1000 Med 11/29/18 12:30 Ordered mL) NS + KCl 20mEq/L [Normal Saline with 20 mEq KCl] 1,000 ml IV ASDIRECTED Sulfamethoxazole/Trimethoprim [Septra DS] Med 11/30/18 08:00 Ordered 1 tab PO MOWEFR@08 predniSONE Med 11/30/18 08:00 Ordered 30 mg PO DAILY traZODone Med 11/29/18 20:00 Ordered 50 mg PO BEDTIME Anticoagulation Contraindications VTE [AST] Per Unit Oth 11/29/18 12:15 Ordered Routine Resuscitation Status Routine Resus Stat 11/29/18 12:15 Ordered Medication Orders Acetaminophen (Tylenol Extra Strength) 1,000 mg PO TID PRN PRN Reason: Pain Amitriptyline HCl (Elavil) 25 mg PO BEDTIME MARY Gabapentin (Neurontin) 200 mg PO TID MARY Hydromorphone HCl (Dilaudid) 0.5 mg IVPUSH Q4H PRN PRN Reason: Pain Potassium Chloride/Sodium Chloride (Normal Saline With 20 Meq Kcl) 1,000 mls @ 100 mls/hr IV ASDIRECTED MARY Lactobacillus Rhamnosus (Culturelle) 1 cap PO DAILY [facility] Melatonin (Melatonin) 6 mg PO BEDTIME MARY Mirtazapine (Remeron) 15 mg PO BEDTIME MARY Non-Formulary Medication (Bethanechol [Urecholine]) 25 mg PO TID MARY Non-Formulary Medication (Dicyclomine [Bentyl]) 10 mg PO QID [facility] Non-Formulary Medication (Dronabinol [Marinol]) 5 mg PO BIDAC [facility] Non-Formulary Medication (Hydrocortisone [Anusol-Hc]) 1 appful RC TID PRN PRN Reason: irritation Non-Formulary Medication (Hydrocortisone [Anusol-Hc]) 1 applic RECTAL DAILY [facility] Non-Formulary Medication (Metoclopramide) 5 mg PO QID [facility] Non-Formulary Medication (Omeprazole Magnesium [Prilosec Otc]) 40 mg PO BIDAC MARY Non-Formulary Medication (Ranitidine Hcl [Ranitidine]) 150 mg PO BEDTIME [facility] Potassium Bicarbonate (Klor-Con Ef) 25 meq PO BID [facility] Prednisone (Prednisone) 30 mg PO DAILY [facility] Simethicone (Simethicone) 80 mg PO QID PRN PRN Reason: Gas Trazodone HCl (Trazodone) 50 mg PO BEDTIME [facility] Trimethoprim/Sulfamethoxazole (Septra Ds) 1 tab PO MOWEFR@08 [facility] Assessment/Plan Comment:: 43 yo female admitted with CHARIS secondary to dehydration in the setting of underlying Crohn's disease and inability to tolerate tube feedings. #1 Acute on chronic renal failure #2 Hyponatremia - Patient did well with slow IV hydration during her previous admission; therefore, will do this again. - K is normal but is on the low end. - Will do NS with 20 KCl @ 100 cc/hr. - Recheck labs in the am. #3 Crohn's Disease with current flare #4 Chronic Abdominal pain - Patient's bloody bowel movements suggests at least some component of a crohn' s flare. - Will do a dose of solu-medrol today and then continue her prednisone starting tomorrow. - Will do IV hydromorphone today and then transition to PO as soon as improving. - Continue reglan but hold zofran and phenergan as she did well without these while hospitalized last week. - Plan is to get her hydrated enough to make the trip to [place], where she plans to seek another opinion. #5 On tube feedings #6 Severe Malnutrition - Hold tube feedings until at least tomorrow morning; will reassess in am if we can resume this later on in the day. - Patient can eat a regular diet as she tolerates. Highly unlikely patient would be able to rehydrate orally; therefore, admission discussed and recommended. She has been in and out of the hospital often due to inability to stay hydrated; therefore, reconsideration likely needs to be given to TPN. In this case, admission to [facility] was discussed/recommended. She and her daughter plan to go to [place] for a second opinion but wanted to ensure she was stable enough to make the trip first. Therefore, she is admitted here on acute status for fluids and management of her presumed Crohn's flare. Code status is full. Will hold off on pharmacologic VTE prophylaxis in the setting of reports of blood in the stools. Will encourage ambulation once better hydrated. Recheck labs in the am.
[2018-11-29] MEDS ORDERED: Hydrocortisone 1% Crm 30 GM Tube TOP PRN (12:58)
[2018-11-29] MEDS: NS + KCl 20mEq/L 1,000 ML IV SCH ×2 (13:04→23:19)
[2018-11-29] MEDS: Dicyclomine 10 MG Cap PO SCH ×2 (16:45→19:39)
[2018-11-29] MEDS: Metoclopramide 5 MG Tab PO SCH ×2 (16:45→19:39)
[2018-11-29] MEDS: Omeprazole 20 MG Cap.CR PO SCH (16:47)
[2018-11-29] MEDS: HYDROmorphone 1 MG/ML Syringe IVPUSH PRN ×3 (16:48→22:00)
[2018-11-29] MEDS: Potassium Bicarbonate 25 MEQ Tab.EFF PO SCH (19:35)
[2018-11-29] MEDS: Gabapentin 100 MG Cap PO SCH (19:38)
[2018-11-29] MEDS: Mirtazapine 15 MG Tab PO SCH (19:39)
[2018-11-29] MEDS: Amitriptyline 25 MG Tab PO SCH (19:39)
[2018-11-29] MEDS: traZODone 50 MG Tab PO SCH (19:39)
[2018-11-29] MEDS: Famotidine 20 MG Tab PO SCH (19:40)
[2018-11-29] MEDS: Melatonin 3 MG Tab PO SCH (19:40)
[2018-11-29] MEDS: Simethicone 80 MG Tab.Chew PO PRN (19:45)
[2018-11-30] MEDS: HYDROmorphone 1 MG/ML Syringe IVPUSH PRN ×4 (01:51→21:08)
[2018-11-30] MEDS: Omeprazole 20 MG Cap.CR PO SCH ×2 (06:33→17:05)
[2018-11-30] MEDS: Metoclopramide 5 MG Tab PO SCH ×4 (06:33→19:23)
[2018-11-30 07:19] LABS: ANION GAP 14.3 mmol/L (10-20)
[2018-11-30] MEDS: Potassium Bicarbonate 25 MEQ Tab.EFF PO SCH ×2 (07:45→19:23)
[2018-11-30] MEDS: Gabapentin 100 MG Cap PO SCH ×3 (07:46→19:24)
[2018-11-30] MEDS: Dicyclomine 10 MG Cap PO SCH ×4 (07:46→19:24)
[2018-11-30] MEDS: Lactobacillus Rhamnosus GG (Probiotic) Cap PO SCH (07:50)
[2018-11-30] MEDS: predniSONE 10 MG Tab PO SCH (07:50)
[2018-11-30] MEDS: Hydrocortisone 1% Crm 30 GM Tube TOP SCH (07:50)
[2018-11-30] MEDS: Sulfamethoxazole/Trimethoprim 800-160 MG Tab PO SCH (07:50)
[2018-11-30] MEDS: Acetaminophen 500 MG Tab PO PRN ×2 (07:56→18:15)
[2018-11-30] MEDS ORDERED: HYDROmorphone 1 MG/ML Syringe IVPUSH ONE (08:50)
--- NOTE | 2018-11-30 09:10 | PCM.PN ---
- General Info Date of Service: 11/30/18 Subjective Update: 43 yo female hospital day #2 for CHARIS secondary to inability to tolerate tube feeds in the setting of severe Crohn's with a presumed flare. She slept ok overnight. She is still having a lot of abdominal pain and does not feel it is any better or worse than previous. She has had some benefit from the hydromorphone but wonders about having a 1 time higher dose for this. She is still having more frequent, looser stools but is noticing very little blood in the stools at this point. Has some nausea but the reglan is helping; no vomiting. She has been drinking chicken broth and water; no food intake yet. No fever or chills. - Review of Systems General: Reports: No Symptoms HEENT: Reports: No Symptoms Pulmonary: Reports: No Symptoms Cardiovascular: Reports: No Symptoms Genitourinary: Reports: No Symptoms Musculoskeletal: Reports: No Symptoms Skin: Reports: No Symptoms Neurological: Reports: No Symptoms - Patient Data Vitals - Most Recent: Last Vital Signs Temp 36.3 C 11/30/18 05:23 Pulse 74 11/30/18 05:23 Resp 16 11/30/18 05:23 BP 89/49 L 11/30/18 05:23 Pulse Ox 97 11/30/18 05:23 Weight - Most Recent: 37.648 kg I&O - Last 24 Hours: Intake & Output 11/29/18 11/30/18 11/30/18 22:59 06:59 14:59 Intake Total 1074 1007 360 Output Total 100 400 Balance 1074 907 -40 Lab Results Last 24 Hours: Laboratory Results - last 24 hr 11/30/18 11/30/18 Range/Units 06:35 06:35 WBC 11.2 H (4.0-10.0) x10^3/uL RBC 3.26 L (4.00-5.50) x10^6/uL Hgb 10.1 L (12.0-16.0) g/dL Hct 31.3 L (33.0-47.0) % MCV 96.0 H (78.0-93.0) fL MCH 31.0 (26.0-32.0) pg MCHC 32.3 (32.0-36.0) g/dL RDW Coeff of Brianda 12.7 (10.0-15.0) % Plt Count 573 H (130-400) x10^3/uL Neut % (Auto) 66.1 (50.0-80.0) % Lymph % (Auto) 24.6 L (25.0-50.0) % [place] % (Auto) 7.7 (2.0-11.0) % Eos % (Auto) 1.3 (0.0-4.0) % Baso % (Auto) 0.3 (0.2-1.2) % Sodium 138 (136-145) mmol/L Potassium 4.3 (3.5-5.1) mmol/L Chloride 106 (98-107) mmol/L Carbon Dioxide 22 (21-32) mmol/L Anion Gap 14.3 (10-20) mmol/L BUN 39 H (7-18) mg/dL Creatinine 1.8 H (0.55-1.02) mg/dL Est Cr Clr Drug Dosing 23.46 mL/min Estimated GFR (MDRD) 30 Glucose 92 (74-106) mg/dL Calcium 8.3 L (8.5-10.1) mg/dL Med Orders - Current: Current Medications Acetaminophen (Tylenol Extra Strength) 1,000 mg PO TID PRN PRN Reason: Pain Last Admin: 11/30/18 07:56 Dose: 1,000 mg Amitriptyline HCl (Elavil) 25 mg PO BEDTIME [facility] Last Admin: 11/29/18 19:39 Dose: 25 mg Bethanechol Chloride (Urecholine) 25 mg PO TID [facility] Last Admin: 11/30/18 07:45 Dose: 25 mg Dicyclomine HCl (Bentyl) 10 mg PO QID [facility] Last Admin: 11/30/18 07:46 Dose: 10 mg Famotidine (Pepcid) 20 mg PO BEDTIME [facility] Last Admin: 11/29/18 19:40 Dose: 20 mg Gabapentin (Neurontin) 200 mg PO TID [facility] Last Admin: 11/30/18 07:46 Dose: 200 mg Hydrocortisone (Hydrocortisone 1% Crm) 0 gm TOP DAILY [facility] Last Admin: 11/30/18 07:50 Dose: 1 applic Hydrocortisone (Hydrocortisone 1% Crm) 0 gm TOP TID PRN PRN Reason: irritation Hydromorphone HCl (Dilaudid) 1 mg IVPUSH ONETIME ONE Stop: 11/30/18 08:51 Hydromorphone HCl (Dilaudid) 0.5 mg IVPUSH Q4H PRN PRN Reason: Pain Sodium Chloride (Sodium Chloride 0.45%) 1,000 mls @ 75 mls/hr IV ASDIRECTED [facility] Lactobacillus Rhamnosus (Culturelle) 1 cap PO DAILY [facility] Last Admin: 11/30/18 07:50 Dose: 1 cap Melatonin (Melatonin) 6 mg PO BEDTIME [facility] Last Admin: 11/29/18 19:40 Dose: 6 mg Metoclopramide HCl (Reglan) 5 mg PO QIDACANDBED [facility] Last Admin: 11/30/18 06:33 Dose: 5 mg Mirtazapine (Remeron) 15 mg PO BEDTIME [facility] Last Admin: 11/29/18 19:39 Dose: 15 mg Dronabinol [Marinol] (5mg (Own Supply)) 5 mg PO BIDAC [facility] Last Admin: 11/30/18 06:33 Dose: 5 mg Omeprazole (Omeprazole) 40 mg PO BIDAC [facility] Last Admin: 11/30/18 06:33 Dose: 40 mg Potassium Bicarbonate (Klor-Con Ef) 25 meq PO BID [facility] Last Admin: 11/30/18 07:45 Dose: 25 meq Prednisone (Prednisone) 30 mg PO DAILY [facility] Last Admin: 11/30/18 07:50 Dose: 30 mg Simethicone (Simethicone) 80 mg PO QID PRN PRN Reason: Gas Last Admin: 11/29/18 19:45 Dose: 80 mg Trazodone HCl (Trazodone) 50 mg PO BEDTIME [facility] Last Admin: 11/29/18 19:39 Dose: 50 mg Trimethoprim/Sulfamethoxazole (Septra Ds) 1 tab PO MOWEFR@08 [facility] Last Admin: 11/30/18 07:50 Dose: 1 tab Discontinued Medications Hydrocortisone (Hydrocortisone 2.5% Crm) 0 gm TOP TID PRN PRN Reason: irritation Hydromorphone HCl (Dilaudid) 0.5 mg IVPUSH Q4H PRN PRN Reason: Pain Last Admin: 11/29/18 13:03 Dose: 0.5 mg Hydromorphone HCl (Dilaudid) 0.5 mg IVPUSH Q2H PRN PRN Reason: Pain Last Admin: 11/29/18 22:00 Dose: 0.5 mg Hydromorphone HCl (Dilaudid) 0.5 mg IVPUSH Q3H PRN PRN Reason: Pain Last Admin: 11/30/18 06:34 Dose: 0.5 mg Potassium Chloride/Sodium Chloride (Normal Saline With 20 Meq Kcl) 1,000 mls @ 100 mls/hr IV ASDIRECTED [facility] Last Admin: 11/29/18 23:19 Dose: 100 mls/hr Methylprednisolone Sodium Succinate (Solu-Medrol) 40 mg IVPUSH ONETIME ONE Stop: 11/29/18 12:21 Last Admin: 11/29/18 13:03 Dose: 40 mg - Exam General: Alert, Cooperative, No Acute Distress HEENT: Pupils Equal, Pupils Reactive, Mucous Membr. Moist/[place] Neck: Supple, Trachea Midline, No Thyromegaly. No: Lymphadenopathy Lungs: Clear to Auscultation, Normal Respiratory Effort Cardiovascular: Regular Rate, Regular Rhythm, No Murmurs GI/Abdominal Exam: Normal Bowel Sounds, Soft, No Organomegaly, No Distention, No Mass, Tender (diffuse mild tenderness to palpation without rebound, rigidity , or guarding) Extremities: Non-Tender, No Pedal Edema, Normal Capillary Refill Peripheral Pulses: 2+: Radial (L), Radial (R) Skin: Warm, Dry, Intact - Problem List & Annotations (1) Renal failure (ARF), acute on chronic SNOMED Code(s): 152468239 Code(s): N17.9 - ACUTE KIDNEY FAILURE, UNSPECIFIED; N18.9 - CHRONIC KIDNEY DISEASE, UNSPECIFIED Status: Acute Current Visit: No Qualifiers: Acute renal failure type: unspecified Chronic kidney disease stage: unspecified stage Qualified Code(s): N17.9 - Acute kidney failure, unspecified ; N18.9 - Chronic kidney disease, unspecified (2) Hyponatremia SNOMED Code(s): 15609182 Code(s): E87.1 - HYPO-OSMOLALITY AND HYPONATREMIA Status: Acute Current Visit: No (3) Acute Crohn's disease SNOMED Code(s): 50035844, 93942935 Code(s): K50.90 - CROHN'S DISEASE, UNSPECIFIED, WITHOUT COMPLICATIONS Status: Acute Current Visit: No Qualifiers: Digestive disease complication type: with rectal bleeding Qualified Code(s) : K50.911 - Crohn's disease, unspecified, with rectal bleeding (4) Chronic abdominal pain SNOMED Code(s): 463893598 Code(s): R10.9 - UNSPECIFIED ABDOMINAL PAIN; G89.29 - OTHER CHRONIC PAIN Status: Chronic Current Visit: No (5) On tube feeding diet SNOMED Code(s): 29118615 Code(s): Z78.9 - OTHER SPECIFIED HEALTH STATUS Status: Chronic Current Visit: No (6) Severe malnutrition SNOMED Code(s): 11535939 Code(s): E43 - UNSPECIFIED SEVERE PROTEIN-CALORIE MALNUTRITION Status: Chronic Current Visit: No - Problem List Review Problem List Initiated/Reviewed/Updated: Yes - My Orders Last 24 Hours: My Active Orders 11/29/18 12:15 Patient Status [ADT] Routine Oxygen Therapy [RC] .PRN Up With Assistance [RC] ASDIRECTED VTE/DVT Education [RC] .PRN Vital Signs [RC] 06,10,14,18,,02 Anticoagulation Contraindications VTE [AST] Per Unit Routine Resuscitation Status Routine 11/29/18 12:17 Notify Provider Vital Signs [RC] 06,10,14,18,22,02 11/29/18 12:31 Acetaminophen [Tylenol Extra Strength] 1,000 mg PO TID PRN Simethicone 80 mg PO QID PRN 11/29/18 12:58 Hydrocortisone [Hydrocortisone 1% Crm] 0 gm TOP TID PRN 11/29/18 16:00 Dicyclomine [Bentyl] 10 mg PO QID 11/29/18 17:00 Dronabinol [Marinol] 5 mg PO BIDAC Metoclopramide [Reglan] 5 mg PO QIDACANDBED Omeprazole 40 mg PO BIDAC 11/29/18 20:00 Amitriptyline [Elavil] 25 mg PO BEDTIME Bethanechol [Urecholine] 25 mg PO TID Famotidine [Pepcid] 20 mg PO BEDTIME Gabapentin [Neurontin] 200 mg PO TID Melatonin 6 mg PO BEDTIME Mirtazapine [Remeron] 15 mg PO BEDTIME Potassium Bicarbonate [Klor-Con EF] 25 meq PO BID traZODone 50 mg PO BEDTIME 01/22/19 Lunch Regular Diet [DIET] 11/30/18 08:00 Hydrocortisone [Hydrocortisone 1% Crm] 0 gm TOP DAILY Lactobacillus Rhamnosus GG [Culturelle] 1 cap PO DAILY Sulfamethoxazole/Trimethoprim [Septra DS] 1 tab PO MOWEFR@08 predniSONE 30 mg PO DAILY 11/30/18 08:50 HYDROmorphone [Dilaudid] 1 mg IVPUSH ONETIME ONE 11/30/18 09:00 Sodium Chloride 0.45% 1,000 ml IV ASDIRECTED 11/30/18 11:00 HYDROmorphone [Dilaudid] 0.5 mg IVPUSH Q4H PRN - Assessment Assessment:: 43 yo female admitted with CHARIS secondary to inability to tolerate tube feeds in the setting of a presumed flare of Crohn's. Symptoms are about the same today compared to yesterday; labs improved. - Plan Plan:: #1 Acute on chronic renal failure #2 Hyponatremia, resolved - Creatinine gradually improving. Baseline is 1.3-1.4. Sodium back to normal. K also normal. - Will transition fluids to 1/2 NS and decrease rate to 75 cc/hr. - Recheck labs in the am. #3 Crohn's Disease with current flare #4 Chronic Abdominal pain - Patient's bloody bowel movements suggests at least some component of a crohn' s flare. - Continue prednisone today. Could consider another dose of solu-medrol if pain is not improving throughout the day today. - Will do a 1 time dose of 1 mg IV hydromorphone now (patient has done ok with this dose while in [place] despite her very low BMI) and then continue 0.5 mg q4h PRN. - Continue reglan but hold zofran and phenergan as she did well without these while hospitalized last week. - Plan is to get her hydrated enough to make the trip to [place], where she plans to seek another opinion. #5 On tube feedings #6 Severe Malnutrition - Hold tube feedings until this afternoon; will reassess at noon if we can get these started. She is hesitant but did much better with pain during her last hospitalization once the tube feeds were started. - Patient can eat a regular diet as she tolerates. Patient's intent is to go to [place] upon discharge for a second opinion. She declined admission in [place] on discussions yesterday. Is improving today. Continue plan as above. Anticipate she will be prepared for dismissal in the next 24-48 hours and should then be able to make the trip to [place] without decompensating. Code status is full. Will hold off on pharmacologic VTE prophylaxis in the setting of reports of blood in the stools. Will encourage ambulation once better hydrated. Recheck labs in the am.
[2018-11-30] MEDS: Sodium Chloride 0.45% 1,000 ML IV SCH ×2 (09:28→22:52)
[2018-11-30] MEDS: Mirtazapine 15 MG Tab PO SCH (19:24)
[2018-11-30] MEDS: Melatonin 3 MG Tab PO SCH (19:24)
[2018-11-30] MEDS: Amitriptyline 25 MG Tab PO SCH (19:24)
[2018-11-30] MEDS: traZODone 50 MG Tab PO SCH (19:24)
[2018-11-30] MEDS: Famotidine 20 MG Tab PO SCH (19:24)
[2018-12-01] MEDS: HYDROmorphone 1 MG/ML Syringe IVPUSH PRN ×2 (01:44→06:25)
[2018-12-01] MEDS: Omeprazole 20 MG Cap.CR PO SCH ×3 (06:22→16:34)
[2018-12-01] MEDS: Metoclopramide 5 MG Tab PO SCH ×4 (06:22→20:34)
[2018-12-01 07:00] LABS: ANION GAP 12.3 mmol/L (10-20)
[2018-12-01] MEDS: Ondansetron 4 MG/2 ML SDV IVPUSH PRN ×2 (08:52→18:04)
[2018-12-01] MEDS: predniSONE 10 MG Tab PO SCH (08:53)
[2018-12-01] MEDS: Potassium Bicarbonate 25 MEQ Tab.EFF PO SCH ×2 (08:53→20:32)
[2018-12-01] MEDS: Gabapentin 100 MG Cap PO SCH ×3 (08:54→20:33)
[2018-12-01] MEDS: Hydrocortisone 1% Crm 30 GM Tube TOP SCH (08:54)
[2018-12-01] MEDS: Dicyclomine 10 MG Cap PO SCH ×4 (08:54→20:33)
[2018-12-01] MEDS: Lactobacillus Rhamnosus GG (Probiotic) Cap PO SCH (08:54)
[2018-12-01] MEDS: Acetaminophen 500 MG Tab PO PRN ×2 (08:55→14:22)
--- NOTE | 2018-12-01 09:17 | PCM.PN ---
- General Info Date of Service: 12/01/18 Subjective Update: 43 yo female hospital day #3 for CHARIS secondary to inability to tolerate tube feedings with underlying severe Crohn's disease. Had an uneventful night but is having more nausea today. Pain is slightly less intense but is still prominent. Bowel movements are at her normal except she still has noticed some streaks of blood mixed in. No vomiting. Tolerating tube feedings ok at the current rate. Continues to drink well but has not eaten much actual food. - Review of Systems General: Reports: No Symptoms HEENT: Reports: No Symptoms Pulmonary: Reports: No Symptoms Cardiovascular: Reports: No Symptoms Gastrointestinal: Reports: Abdominal Pain, Nausea Genitourinary: Reports: No Symptoms Musculoskeletal: Reports: No Symptoms Skin: Reports: No Symptoms Neurological: Reports: No Symptoms - Patient Data Vitals - Most Recent: Last Vital Signs Temp 36.7 C 12/01/18 05:48 Pulse 72 12/01/18 05:48 Resp 18 12/01/18 05:48 BP 92/47 L 12/01/18 05:48 Pulse Ox 100 12/01/18 05:48 Weight - Most Recent: 37.648 kg I&O - Last 24 Hours: Intake & Output 11/30/18 12/01/18 12/01/18 22:59 06:59 14:59 Intake Total 1558 2240 Output Total 400 2250 Balance 1158 -10 Lab Results Last 24 Hours: Laboratory Results - last 24 hr 12/01/18 12/01/18 Range/Units 06:18 06:18 WBC 9.0 (4.0-10.0) x10^3/uL RBC 2.56 L (4.00-5.50) x10^6/uL Hgb 8.0 L D (12.0-16.0) g/dL Hct 25.6 L (33.0-47.0) % MCV 100.0 H D (78.0-93.0) fL MCH 31.3 (26.0-32.0) pg MCHC 31.3 L (32.0-36.0) g/dL RDW Coeff of Brianda 12.9 (10.0-15.0) % Plt Count 438 H D (130-400) x10^3/uL Neut % (Auto) 65.3 (50.0-80.0) % Lymph % (Auto) 27.7 (25.0-50.0) % [place] % (Auto) 5.8 (2.0-11.0) % Eos % (Auto) 0.9 (0.0-4.0) % Baso % (Auto) 0.3 (0.2-1.2) % Sodium 140 (136-145) mmol/L Potassium 3.3 L (3.5-5.1) mmol/L Chloride 110 H (98-107) mmol/L Carbon Dioxide 21 (21-32) mmol/L Anion Gap 12.3 (10-20) mmol/L BUN 24 H (7-18) mg/dL Creatinine 1.1 H (0.55-1.02) mg/dL Est Cr Clr Drug Dosing 38.38 mL/min Estimated GFR (MDRD) 54 Glucose 100 (74-106) mg/dL Calcium 7.6 L (8.5-10.1) mg/dL Med Orders - Current: Current Medications Acetaminophen (Tylenol Extra Strength) 1,000 mg PO TID PRN PRN Reason: Pain Last Admin: 12/01/18 08:55 Dose: 1,000 mg Amitriptyline HCl (Elavil) 25 mg PO BEDTIME [facility] Last Admin: 11/30/18 19:24 Dose: 25 mg Bethanechol Chloride (Urecholine) 25 mg PO TID [facility] Last Admin: 12/01/18 08:53 Dose: 25 mg Dicyclomine HCl (Bentyl) 10 mg PO QID [facility] Last Admin: 12/01/18 08:54 Dose: 10 mg Famotidine (Pepcid) 20 mg PO BEDTIME [facility] Last Admin: 11/30/18 19:24 Dose: 20 mg Gabapentin (Neurontin) 200 mg PO TID [facility] Last Admin: 12/01/18 08:54 Dose: 200 mg Hydrocortisone (Hydrocortisone 1% Crm) 0 gm TOP DAILY [facility] Last Admin: 12/01/18 08:54 Dose: 1 applic Hydrocortisone (Hydrocortisone 1% Crm) 0 gm TOP TID PRN PRN Reason: irritation Hydromorphone HCl (Dilaudid) 2 mg PO Q4H PRN PRN Reason: Pain Lactobacillus Rhamnosus (Culturelle) 1 cap PO DAILY [facility] Last Admin: 12/01/18 08:54 Dose: 1 cap Melatonin (Melatonin) 6 mg PO BEDTIME [facility] Last Admin: 11/30/18 19:24 Dose: 6 mg Metoclopramide HCl (Reglan) 5 mg PO QIDACANDBED [facility] Last Admin: 12/01/18 06:22 Dose: 5 mg Mirtazapine (Remeron) 15 mg PO BEDTIME [facility] Last Admin: 11/30/18 19:24 Dose: 15 mg Dronabinol [Marinol] (5mg (Own Supply)) 5 mg PO BIDAC [facility] Last Admin: 12/01/18 06:23 Dose: 5 mg Omeprazole (Omeprazole) 40 mg PO BIDAC [facility] Last Admin: 12/01/18 06:22 Dose: 40 mg Ondansetron HCl (Zofran) 4 mg IVPUSH Q8H PRN PRN Reason: Nausea Last Admin: 12/01/18 08:52 Dose: 4 mg Potassium Bicarbonate (Klor-Con Ef) 25 meq PO BID [facility] Last Admin: 12/01/18 08:53 Dose: 25 meq Prednisone (Prednisone) 30 mg PO DAILY [facility] Last Admin: 12/01/18 08:53 Dose: 30 mg Simethicone (Simethicone) 80 mg PO QID PRN PRN Reason: Gas Last Admin: 11/29/18 19:45 Dose: 80 mg Trazodone HCl (Trazodone) 50 mg PO BEDTIME [facility] Last Admin: 11/30/18 19:24 Dose: 50 mg Trimethoprim/Sulfamethoxazole (Septra Ds) 1 tab PO MOWEFR@08 [facility] Last Admin: 11/30/18 07:50 Dose: 1 tab Discontinued Medications Hydrocortisone (Hydrocortisone 2.5% Crm) 0 gm TOP TID PRN PRN Reason: irritation Hydromorphone HCl (Dilaudid) 0.5 mg IVPUSH Q4H PRN PRN Reason: Pain Last Admin: 11/29/18 13:03 Dose: 0.5 mg Hydromorphone HCl (Dilaudid) 0.5 mg IVPUSH Q2H PRN PRN Reason: Pain Last Admin: 11/29/18 22:00 Dose: 0.5 mg Hydromorphone HCl (Dilaudid) 0.5 mg IVPUSH Q3H PRN PRN Reason: Pain Last Admin: 11/30/18 06:34 Dose: 0.5 mg Hydromorphone HCl (Dilaudid) 1 mg IVPUSH ONETIME ONE Stop: 11/30/18 08:51 Last Admin: 11/30/18 09:29 Dose: 1 mg Hydromorphone HCl (Dilaudid) 0.5 mg IVPUSH Q4H PRN PRN Reason: Pain Last Admin: 12/01/18 06:25 Dose: 0.5 mg Potassium Chloride/Sodium Chloride (Normal Saline With 20 Meq Kcl) 1,000 mls @ 100 mls/hr IV ASDIRECTED [facility] Last Admin: 11/29/18 23:19 Dose: 100 mls/hr Sodium Chloride (Sodium Chloride 0.45%) 1,000 mls @ 75 mls/hr IV ASDIRECTED [facility] Last Admin: 11/30/18 22:52 Dose: 75 mls/hr Methylprednisolone Sodium Succinate (Solu-Medrol) 40 mg IVPUSH ONETIME ONE Stop: 11/29/18 12:21 Last Admin: 11/29/18 13:03 Dose: 40 mg - Exam General: Alert, Cooperative, No Acute Distress HEENT: Mucous Membr. Moist/[place] Neck: Supple, Trachea Midline, No Thyromegaly. No: Lymphadenopathy Lungs: Clear to Auscultation, Normal Respiratory Effort Cardiovascular: Regular Rate, Regular Rhythm, No Murmurs GI/Abdominal Exam: Normal Bowel Sounds, Soft, No Organomegaly, No Distention, No Mass, Tender (diffuse tenderness to palpation without rebound, rigidity, or guarding) Extremities: No Pedal Edema, Normal Capillary Refill Peripheral Pulses: 2+: Radial (L), Radial (R) Skin: Warm, Dry, Intact - Problem List & Annotations (1) Renal failure (ARF), acute on chronic SNOMED Code(s): 729486251 Code(s): N17.9 - ACUTE KIDNEY FAILURE, UNSPECIFIED; N18.9 - CHRONIC KIDNEY DISEASE, UNSPECIFIED Status: Resolved Current Visit: No Qualifiers: Acute renal failure type: unspecified Chronic kidney disease stage: unspecified stage Qualified Code(s): N17.9 - Acute kidney failure, unspecified ; N18.9 - Chronic kidney disease, unspecified (2) Hyponatremia SNOMED Code(s): 68666762 Code(s): E87.1 - HYPO-OSMOLALITY AND HYPONATREMIA Status: Acute Current Visit: No (3) Acute Crohn's disease SNOMED Code(s): 99413585, 38933012 Code(s): K50.90 - CROHN'S DISEASE, UNSPECIFIED, WITHOUT COMPLICATIONS Status: Acute Current Visit: No Qualifiers: Digestive disease complication type: with rectal bleeding Qualified Code(s) : K50.911 - Crohn's disease, unspecified, with rectal bleeding (4) Chronic abdominal pain SNOMED Code(s): 659237572 Code(s): R10.9 - UNSPECIFIED ABDOMINAL PAIN; G89.29 - OTHER CHRONIC PAIN Status: Chronic Current Visit: No (5) On tube feeding diet SNOMED Code(s): 25159050 Code(s): Z78.9 - OTHER SPECIFIED HEALTH STATUS Status: Chronic Current Visit: No (6) Severe malnutrition SNOMED Code(s): 67139700 Code(s): E43 - UNSPECIFIED SEVERE PROTEIN-CALORIE MALNUTRITION Status: Chronic Current Visit: No (7) Anemia SNOMED Code(s): 359174023 Code(s): D64.9 - ANEMIA, UNSPECIFIED Status: Acute Current Visit: No Qualifiers: Anemia type: iron deficiency Iron deficiency anemia type: other iron deficiency Qualified Code(s): D50.8 - Other iron deficiency anemias - Problem List Review Problem List Initiated/Reviewed/Updated: Yes - My Orders Last 24 Hours: My Active Orders 11/30/18 Dinner Tube Feeding Adult Diet [DIET] 12/01/18 08:21 HYDROmorphone [Dilaudid] 2 mg PO Q4H PRN 12/01/18 08:30 Ondansetron [Zofran] 4 mg IVPUSH Q8H PRN 12/02/18 05:11 BMP [BASIC METABOLIC PANEL,BMP] [CHEM] Routine CBC WITH AUTO DIFF [HEME] Routine - Assessment Assessment:: 43 yo female admitted with CHARIS secondary to inability to tolerate tube feeds in the setting of a presumed flare of Crohn's. Symptoms very gradually improving; CHARIS is resolved but hemoglobin did drop significantly from yesterday to today. - Plan Plan:: #1 Acute on chronic renal failure #2 Hyponatremia, resolved - Creatinine better than baseline today. Sodium; K only slightly low. - Will d/c IV fluids today and she can take PO ad keon. - Recheck labs in the am. #3 Crohn's Disease with current flare #4 Chronic Abdominal pain - Patient's bloody bowel movements suggests at least some component of a crohn' s flare. - Continue prednisone today. Holding off on additional solu-medrol dosing as she is improving without this. - Will transition to PO hydromorphone today to give her longer duration of coverage when she takes this. - Continue reglan and will add zofran back in today as well. Continue to hold phenergan for now. - She is now considering holding off on going to [place] until her scheduled appointment at the end of December. She was able to get her GI appointment in [place] moved up to next Wednesday instead. - Social work to meet with her today to discuss options for maintaining her until that point as it sounds like her insurance would not cover swing bed. Will consider self pay swing bed vs daily infusions through transitional care nurse. #5 On tube feedings #6 Severe Malnutrition - Increase tube feeding rate to 15 cc/hr this morning; will further increase to 20 cc/hr this pm if she tolerates. - Patient can eat a regular diet as she tolerates. #7 Acute on Chronic Anemia - Hgb down to 8 today, which is a significant drop from yesterday and also lower than her usual baseline. - Suspect at least part of this is hemodilution. - Since bleeding is slowing, will recheck tomorrow instead of later today. Patient will remain on acute status today - anticipate she will be prepared for dismissal in the next 1-2 days. As above, sample case porter to meet with her today to discuss options to keep her out of the hospital until her GI appointment. Code status is full. Will hold off on pharmacologic VTE prophylaxis in the setting of reports of blood in the stools. Will encourage ambulation once better hydrated. Recheck labs in the am.
[2018-12-01] MEDS: HYDROmorphone 2 MG Tab PO PRN ×3 (11:19→20:42)
[2018-12-01] MEDS: Simethicone 80 MG Tab.Chew PO PRN (14:22)
[2018-12-01] MEDS: Mirtazapine 15 MG Tab PO SCH (20:32)
[2018-12-01] MEDS: Melatonin 3 MG Tab PO SCH (20:33)
[2018-12-01] MEDS: Famotidine 20 MG Tab PO SCH (20:33)
[2018-12-01] MEDS: Amitriptyline 25 MG Tab PO SCH (20:33)
[2018-12-01] MEDS: traZODone 50 MG Tab PO SCH (20:33)
[2018-12-02] MEDS: Omeprazole 20 MG Cap.CR PO SCH ×2 (06:36→16:42)
[2018-12-02] MEDS: Metoclopramide 5 MG Tab PO SCH ×4 (06:37→20:17)
[2018-12-02] MEDS: HYDROmorphone 2 MG Tab PO PRN ×2 (06:37→10:49)
[2018-12-02 07:14] LABS: ANION GAP 13.4 mmol/L (10-20)
[2018-12-02] MEDS: Ondansetron 4 MG/2 ML SDV IVPUSH PRN ×3 (08:33→21:30)
[2018-12-02] MEDS: Lactated Ringers 1,000 ML IV SCH ×3 (08:35→22:20)
[2018-12-02] MEDS: Potassium Bicarbonate 25 MEQ Tab.EFF PO SCH ×2 (08:37→20:15)
[2018-12-02] MEDS: predniSONE 10 MG Tab PO SCH (08:38)
[2018-12-02] MEDS: Lactobacillus Rhamnosus GG (Probiotic) Cap PO SCH (08:38)
[2018-12-02] MEDS: Dicyclomine 10 MG Cap PO SCH ×4 (08:38→20:16)
[2018-12-02] MEDS: Gabapentin 100 MG Cap PO SCH ×3 (08:38→20:17)
[2018-12-02] MEDS: Hydrocortisone 1% Crm 30 GM Tube TOP SCH (08:38)
[2018-12-02] MEDS: Sulfamethoxazole/Trimethoprim 800-160 MG Tab PO SCH (08:38)
[2018-12-02] MEDS: Simethicone 80 MG Tab.Chew PO PRN (10:50)
[2018-12-02] MEDS: HYDROmorphone 1 MG/ML Syringe IVPUSH PRN ×2 (15:18→18:33)
[2018-12-02] MEDS ORDERED: diphenhydrAMINE 50 MG/ML SDV IVPUSH ONE (15:57)
--- NOTE | 2018-12-02 16:13 | PN ---
Progress Note for MARYSOL LORA Date: 12/02/2018 Room #: VM.205 This is hospital day #4. SUBJECTIVE: A 43-year-old admitted for acute renal failure in the setting of dehydration with underlying Crohn disease. She was felt to have a Crohn's flare. She was treated with 40 mg of Solu-Medrol on the and continued on her 30 mg daily dose. She has had 8-10 diarrhea bowel movements per day, which is about her baseline, but now she is having more blood in them. Her hemoglobin did drop to 8 yesterday, but is up to 9 today. She has been off IV fluid. She has been nauseated. She got some IV Zofran this morning. She has been unable to tolerate her tube feeds. She is not having any trouble breathing or coughing. Otherwise, creatinine which had been up to 2.3 on the had improved all the way down to 1.1 and is back up to 1.4 today. Outpatient infusion with Remicade was arranged for Wednesday in [place]. OBJECTIVE: VITAL SIGNS: On exam, her temperature 98, pulse 69, blood pressure 95/41, respiratory rate 18, O2 98% on room air. GENERAL: She is in no acute distress. HEART: Regular rate and rhythm. S1 and S2 without murmur. LUNGS: Sounds are clear to auscultation bilaterally without crackles or wheezes. ABDOMEN: Has positive bowel sounds. It is soft, but there is some tenderness especially in the right mid quadrant. J-tube is in place. She is not having any surrounding redness or warmth or drainage from that. Mental Status: She is alert. She is orientated x3 otherwise. LAB WORK: Today did show white count 10.9, hemoglobin 9, platelets 443. Sodium 142, potassium 3.4, chloride 109, bicarb 23, BUN 22, creatinine 1.4, glucose 94, calcium 8.3, magnesium 1.8. CRP less than 0.2. ESR mildly elevated at 23. ASSESSMENT: 1. Acute renal failure secondary to volume depletion and dehydration. We will restart her IV fluids today due to creatinine trending up. 2. Acute Crohn's flare. Inflammation markers are not significantly elevated. Did discuss with [facility]. They are able to give her an infusion on Wednesday morning and they will see her Wednesday. Otherwise, we will continue the prednisone 30 mg daily for now. 3. Diarrhea with blood. We will order a C diff toxin test. 4. Chronic abdominal pain. Due to her vomiting and nausea, we will give her some IV Dilaudid. 5. Severe malnutrition. We are unable to start tube feedings currently because of her pain and nausea and vomiting. 6. Hypokalemia. She is on oral replacement. 7. Anemia. Hemoglobin back up to 9. We will continue to monitor. PLAN: At this point, the patient will remain on acute cares. I restarted lactated Ringer's 125 an hour. We will reassess her tomorrow for possible discharge, then likely outpatient IV fluids on Wednesday. Remicade infusion Wednesday. She is also on Bactrim chronically for PCP prophylaxis in the setting of her prednisone. Therefore, I did send off the C diff testing, although that may not return until Wednesday that was under the direction of the GI Clinic. We will also continue all her other medications for pain like Neurontin and amitriptyline. For DVT prophylaxis, she is not on Lovenox due to the Hemoccult- positive stools. She is up walking in the halls. I will get her started on some SCDs. MKA: 12/02/2018 15:44:16 MODL: 12/02/2018 16:04:03 /[id number]
[2018-12-02] MEDS: traZODone 50 MG Tab PO SCH (20:15)
[2018-12-02] MEDS: Melatonin 3 MG Tab PO SCH (20:15)
[2018-12-02] MEDS: Amitriptyline 25 MG Tab PO SCH (20:17)
[2018-12-02] MEDS: Famotidine 20 MG Tab PO SCH (20:17)
[2018-12-02] MEDS: Mirtazapine 15 MG Tab PO SCH (20:17)
[2018-12-03] MEDS: HYDROmorphone 1 MG/ML Syringe IVPUSH PRN ×3 (02:14→20:23)
[2018-12-03] MEDS: Metoclopramide 5 MG Tab PO SCH ×4 (06:43→19:59)
[2018-12-03] MEDS: Omeprazole 20 MG Cap.CR PO SCH ×2 (06:43→17:09)
[2018-12-03] MEDS: Ondansetron 4 MG/2 ML SDV IVPUSH PRN ×2 (06:56→17:39)
[2018-12-03] MEDS: Dicyclomine 10 MG Cap PO SCH ×4 (08:15→20:00)
[2018-12-03] MEDS: predniSONE 10 MG Tab PO SCH (08:16)
[2018-12-03] MEDS: Potassium Bicarbonate 25 MEQ Tab.EFF PO SCH ×3 (08:16→19:58)
[2018-12-03] MEDS: Lactobacillus Rhamnosus GG (Probiotic) Cap PO SCH (08:16)
[2018-12-03] MEDS: Gabapentin 100 MG Cap PO SCH ×3 (08:16→19:59)
[2018-12-03] MEDS: Hydrocortisone 1% Crm 30 GM Tube TOP SCH (08:18)
[2018-12-03 08:25] LABS: ANION GAP 10.2 mmol/L (10-20)
[2018-12-03] MEDS ORDERED: diphenhydrAMINE 50 MG/ML SDV IVPUSH PRN (09:28)
[2018-12-03] MEDS ORDERED: diphenhydrAMINE 25 MG Cap PO PRN (10:38)
[2018-12-03] MEDS: Vancomycin 125 MG/2.5 ML Oral Solution 2.5 ML UD Cup PO SCH ×3 (11:09→19:57)
[2018-12-03] MEDS: Acetaminophen 500 MG Tab PO PRN (11:14)
--- NOTE | 2018-12-03 11:15 | PN ---
Progress Note for MARYSOL LORA Date: 12/03/2018 Room #: [facility] HISTORY OF PRESENT ILLNESS: This is hospital day #5 on a 43-year-old admitted with renal failure in the setting of dehydration from underlying Crohn's. The patient is having more pain around her J-tube and the right side of her abdomen. She has been nauseated. She got both Zofran and Benadryl this morning. She is still having 8 to 10 bowel movements per day, but not noticing much blood in them. We did send off a C. diff test. It was supposed to be for toxin, but they ran the PCR which was positive and she does have a history of it. Therefore, oral vancomycin had been ordered this morning. White count did go up to 15.5. She has been afebrile. She is not having any burning with urination. She is not having any coughing. Otherwise, she is not short of breath. I did discuss with the patient the possibility of transferring down to [place], however, she states she would really rather not. Concern is that she is to get a Remicade infusion on Wednesday morning while we are still unsure if she does or does not have C. diff. She has not been on any antibiotics here. PHYSICAL EXAMINATION: Vital Signs: Her temperature is 97.5, pulse 75, blood pressure 94/57, respiratory rate 16, O2 of 98% on room air. General: She is in no acute distress. Heart: Regular rate and rhythm. S1, S2 without murmur. Lungs: Lung sounds are clear to auscultation bilaterally without crackles or wheezes. Abdomen: Positive bowel sounds. It is soft. There is some tenderness especially over the right mid abdomen, but no rebound or guarding. Suprapubic tenderness also. Her bladder does feel full. J-tube is in place without any surrounding redness or drainage. Mental Status: She is alert. She is orientated x3. ASSESSMENT: 1. Acute renal failure secondary to volume depletion in the setting of Crohn's exacerbation. Creatinine down to 1.3 today. We will continue IV fluids. 2. Acute Crohn's flare. She did get some Solu-Medrol on admission. Sedimentation markers looked okay yesterday, but now with increasing pain. We will do a CT abdomen and pelvis today. Did discuss transfer to [place], however, she would like to avoid that. If there is any indication for surgical need, she will definitely need to transfer. We will continue prednisone 30 mg daily for now. 3. Diarrhea with history of Clostridium difficile. The toxin test is pending, may not return until Wednesday. We will empirically start her on oral vancomycin given that her white count is going up. 4. Chronic abdominal pain with nausea and vomiting. She is on p.r.n. Zofran, we will use that first. She also has p.r.n. Benadryl. We will try to use oral Benadryl and she still has some Dilaudid IV to use when vomiting and oral available which she had been using at home. Her last dose of the IV Dilaudid was this morning at 6:30 and she received 1 dose at 2 a.m. and 2 doses yesterday. 5. Hypokalemia. We will increase her oral replacement and add some to her fluids. 6. Severe malnutrition. If her CT looks okay, we are going to restart tube feedings. 7. Anemia. Hemoglobin stable at 9. PLAN: At this point, the patient will continue acute cares with IV fluids. CT scan today. Repeat lab work tomorrow. Did highly suggest to the patient attempting transfer down to [place] for specialized care with GI. She would like to wait on it at this point, but her infusion of Remicade is arranged for Wednesday morning, so after her CT today, I will definitely update GI. MKA: 12/03/2018 10:38:11 MODL: 12/03/2018 11:11:32 /[id number]
[2018-12-03] MEDS: NS + KCl 20mEq/L 1,000 ML IV SCH ×2 (11:26→20:01)
[2018-12-03] MEDS ORDERED: Iopamidol 612 MG/ML 100 ML Bottle IVPUSH ONE (11:39)
[2018-12-03] MEDS ORDERED: Vancomycin 125 MG/2.5 ML Oral Solution 2.5 ML UD Cup PO SCH (12:00)
--- NOTE | 2018-12-03 12:49 | CT ---
[id number] CT/CT Abdomen Pelvis W IV EXAM: CT Abdomen Pelvis W IV CLINICAL DATA: ABDOMINAL PAIN. COMPARISON STUDY: August 19, 2018. FINDINGS: Findings are within limitation of no intravenous or enteric contrast material. Circumferential thickening and edema throughout the rectum distal to the bowel anastomosis. There is a small amount of edema in the presacral space. Findings are suspicious for proctitis. Additionally, there is wall thickening throughout majority of the proximal small bowel extending from the 3rd portion of the duodenum into the jejunum of the left upper quadrant. Bowel wall thickening also extends into the more distal small bowel, however to a lesser extent. There is abnormal loops of bowel is mild mesenteric edema numerous reactive lymph nodes. Findings are most consistent with inflammatory enteritis, given history of Crohn's disease. Marked dilation of the proximal colon, most notably in the cecum and ascending segment. These findings are similar to prior examination in 2018 and likely chronic. No evidence of a small bowel obstruction. No evidence of perforated viscus. No abscess. Percutaneous gastrojejunostomy tube in place. Gallbladder has been resected. Liver, spleen, pancreas, adrenal glands are unremarkable. Kidneys demonstrate numerous nonobstructing renal calculi, most which are associated with the renal pyramids. No ureteral calculi or evidence of urinary tract obstruction. IMPRESSION: Changes of enteritis and proctitis with mesenteric edema and reactive nodes, described in detail above. Findings are most consistent with inflammatory etiology, given history of Crohn's disease. Morgan Nye MD 12/03/18 [id number] Thank you for allowing us to participate in the care of your patient.
[2018-12-03] MEDS: methylPREDNISolone Sodium Succinate 40 MG/1 ML SDV IVPUSH SCH ×2 (15:25→22:26)
[2018-12-03] MEDS: HYDROmorphone 2 MG Tab PO PRN (15:37)
[2018-12-03] MEDS: Simethicone 80 MG Tab.Chew PO PRN (17:45)
[2018-12-03] MEDS ORDERED: diphenhydrAMINE 50 MG/ML SDV IVPUSH ONE (18:18)
[2018-12-03] MEDS: Melatonin 3 MG Tab PO SCH (19:58)
[2018-12-03] MEDS: Mirtazapine 15 MG Tab PO SCH (19:59)
[2018-12-03] MEDS: Famotidine 20 MG Tab PO SCH (20:00)
[2018-12-03] MEDS: Amitriptyline 25 MG Tab PO SCH (20:01)
[2018-12-03] MEDS: traZODone 50 MG Tab PO SCH (20:01)
[2018-12-04] MEDS: diphenhydrAMINE 50 MG/ML SDV IVPUSH PRN ×2 (00:25→06:58)
[2018-12-04] MEDS: HYDROmorphone 1 MG/ML Syringe IVPUSH PRN ×2 (00:25→06:57)
[2018-12-04] MEDS: NS + KCl 20mEq/L 1,000 ML IV SCH (01:59)
[2018-12-04] MEDS: Omeprazole 20 MG Cap.CR PO SCH (06:56)
[2018-12-04] MEDS: methylPREDNISolone Sodium Succinate 40 MG/1 ML SDV IVPUSH SCH (06:58)
[2018-12-04] MEDS: Metoclopramide 5 MG Tab PO SCH (06:58)
[2018-12-04] MEDS: Lactobacillus Rhamnosus GG (Probiotic) Cap PO SCH (08:39)
[2018-12-04] MEDS: Dicyclomine 10 MG Cap PO SCH (08:39)
[2018-12-04] MEDS: Gabapentin 100 MG Cap PO SCH (08:39)
[2018-12-04] MEDS: Potassium Bicarbonate 25 MEQ Tab.EFF PO SCH (08:39)
[2018-12-04] MEDS: Hydrocortisone 1% Crm 30 GM Tube TOP SCH (08:39)
[2018-12-04] MEDS: Vancomycin 125 MG/2.5 ML Oral Solution 2.5 ML UD Cup PO SCH (08:40)
[2018-12-04 09:12] LABS: ANION GAP 10.3 mmol/L (10-20)
--- NOTE | 2018-12-04 14:09 | DISCH ---
PRIMARY REASON FOR TRANSFER: Acute Crohn's exacerbation. SECONDARY DISCHARGE DIAGNOSES: 1. Hyperkalemia due to replacement. Potassium 5.3. 2. Acute renal failure, resolving. Creatinine back to baseline at 1.2. 3. Diarrhea, loose stools, but not watery with no blood at this point. Concern for Clostridium difficile given her history of that. Toxin test is pending. PCR was positive and she was empirically started on vancomycin on 12/03/2018. 4. Chronic abdominal pain with nausea and vomiting. Last emesis was during the night. She has been receiving IV Zofran and IV Benadryl. She has also been receiving some IV Dilaudid due to nausea and inability with keeping medications down. Her last dose was at 7:00 a.m. She has had about 2.5 mg over the last 24 hours in 0.5 mg increments of Dilaudid. 5. Severe malnutrition. She was able to restart her tube feeds yesterday, but only at 5 mL/h through the J tube. Oral intake has fallen off to nothing today, but did get 75% of dinner in yesterday. 6. Anemia, chronic. Hemoglobin has been stable at 8.9. 7. Overactive bladder, on medication. Dose not given today as it was not available. The patient also having some mild retention about 112 mL for postvoid residual. REASON FOR ADMISSION: On the date of admission, this 43-year-old female who had just been discharged on the 11/27/2018, presented to the clinic for her followup on 11/29/2018, and was found to be in acute renal failure again with creatinine over 2. She was admitted. She was given IV fluids. Her condition improved. She did receive some Solu-Medrol initially, but then continued on her oral prednisone. However, she continued to have episodes of nausea and vomiting. Her abdominal pain had improved, but then would worsen again. She had some bloody stools on admission. The blood did taper off, but she continued to have about 8 loose bowel movements per day. We had contacted [facility]. They suggested doing the Clostridium difficile toxin which was sent to lab. Inadvertently, also ran a PCR which was positive. So, on the 12/03/2018, she was started on oral vancomycin. Her condition has not improved since then. Her white count was 15,000 at that time. We did elect to do a CT of her abdomen as we were considering transfer then, however, the patient declined. The CT did show changes of enteritis and proctitis with mesenteric edema and reactive nodes consistent with inflammatory etiology like Crohn's. She had some marked dilation of her proximal colon, but that was similar to findings on her previous CT. She had no bowel obstruction. She otherwise continued to have some pain in the right mid abdomen and suprapubic area. UA did not show an infection. She had no fever, no chills. She had been continued on her Bactrim 3 times a week for PCP prophylaxis. Therefore, we were concerned she may have Clostridium difficile and Remicade infusion was postponed, and also a GI specialist felt that 40 mg a day of prednisone would be okay until she is able to get the infusion. Given her overall clinical situation and the fact that she had multiple readmissions and she is already on hospital day 6 here, she was agreeable to transfer down to [place] for further care. Hospitalist was contacted and arrangements were made. The patient will go by private vehicle as we did stop her IV. Otherwise, discharging white count 10, hemoglobin 8.9, platelets 417. Sodium 143, potassium 5.3 and it is up from 3.2, as she was getting some potassium replacement chronically and also in her fluids. Chloride 110, bicarb 27, BUN 15, creatinine 1.2, calcium 8, glucose 126, bilirubin 0.1, AST 14, ALT 26. CRP was 0.2, albumin 2.3. ESR 32. Discharging vitals include a temperature of 97.6, pulse 67, blood pressure 95/57, respiratory rate 18, O2 of 98% on room air. In general, she is in no acute distress. Heart has regular rate and rhythm. S1 and S2 without murmur. Lung sounds are clear to auscultation bilaterally without crackles or wheezes. Abdomen does appear mildly distended today, but it is soft. There are some hypoactive bowel sounds, but no bowel sounds appreciated in either lower quadrants. There is slight tenderness to palpation, but no rebound or guarding. Her mental status; she is alert and orientated x3. Her extremities now are showing just trace edema, just feels a little puffy. Otherwise, she had been on SCDs during her stay for deep vein thrombosis prophylaxis, not Lovenox due to the blood in her stools when she arrived. There was no drainage or discharge around the G-tube, but she stated it was tender. She also was up walking in the halls during her stay. DISCHARGE PLANS AND INSTRUCTIONS: She is going down to [place] for further care. I discussed with the Hospitalist Service. She will be seen later by GI while she is there. MKA: 12/04/2018 09:55:38 MODL: 12/04/2018 14:02:03 /[id number]
== END 2018-12-04 10:50 | disposition short-term general hospital (02) | DRG 469 ==
LOC: VM.MS 11:58
PROVIDERS: ADMIT Family Medicine; ATTEND Family Medicine
DX: N17.9 Acute kidney failure, unspecified (principal); E43 Unspecified severe protein-calorie malnutrition; Z68.1 Body mass index [BMI] 19.9 or less, adult; N18.9 Chronic kidney disease, unspecified; K50.911 Crohn's disease, unspecified, with rectal bleeding; E86.0 Dehydration; E87.1 Hypo-osmolality and hyponatremia; D50.9 Iron deficiency anemia, unspecified; E87.6 Hypokalemia; M54.9 Dorsalgia, unspecified; G89.29 Other chronic pain; Z79.899 Other long term (current) drug therapy; Z79.52 Long term (current) use of systemic steroids; Z88.8 Allergy status to other drugs, medicaments and biological substances; Z88.0 Allergy status to penicillin; Z86.19 Personal history of other infectious and parasitic diseases; Z90.49 Acquired absence of other specified parts of digestive tract
CPT/HCPCS: 36415; 51798; 74177; 80048; 80053; 81001; 83735; 85025; 85652; 86140; 87086; 87324; 87493; A9270-GY; J1170; J1200; J2405; J2920; J3480; J7030; J7120; J7512; Q0163; Q9967

== ENCOUNTER 2018-12-11 12:37 | Inpatient (IN) | payer BC, OTHER ==
[2018-12-11] MEDS ORDERED: Sodium Chloride 0.9% 10 ML Syringe FLUSH PRN (12:55)
[2018-12-11] MEDS ORDERED: Ondansetron 4 MG/2 ML SDV IVPUSH ONE (12:59)
[2018-12-11] MEDS ORDERED: HYDROmorphone 1 MG/ML Syringe IVPUSH ONE (12:59)
[2018-12-11] MEDS ORDERED: Lactated Ringers 1,000 ML IV SCH (13:00)
[2018-12-11 13:43] LABS: CHLORIDE,CL 91 mmol/L (98-107); SODIUM,NA 130 mmol/L (136-145)
[2018-12-11] MEDS: D5 1/2 NS w/ 20 mEq/L KCl 1,000 ML IV SCH ×2 (15:13→15:32)
--- NOTE | 2018-12-11 15:16 | EDM.PDOC ---
ED HPI GENERAL MEDICAL PROBLEM - General Chief Complaint: Gastrointestinal Problem Stated Complaint: NAUSEA Time Seen by Provider: 12/11/18 12:42 Source of Information: Reports: Patient History Limitations: Reports: No Limitations - History of Present Illness INITIAL COMMENTS - FREE TEXT/NARRATIVE: Patient presents here with complaints of nausea, vomiting, and diarrhea. She is well known here with multiple episodes of similar complaints. She was last here 12/09/18 for fever, abdominal pain, nausea, vomiting. Diagnosed with viral illness. No fever today. Nausea and stomach pain started last night. History of Crohn's disease. G tube is in place. Port placed while hospitalized at [facility] last week. History of C. Diff. Was tested for this again at the end of November during hospitalization. Positive PCR, however negative on culture. On prophylactic bactrim for pneumococcal pneumonia. Denies headache, chest pain, SOB, neurologic symptoms. No blood in stool, urine, or emesis. Onset: Gradual Duration: Chronic, Intermittent Severity: Moderate Associated Symptoms: Reports: Nausea/Vomiting Right Lower Abdomen Pain Score (Numeric/FACES): 8 - Related Data Allergies Allergy/AdvReac Type Severity Reaction Status Date / Time codeine Allergy Severe Anaphylactic Verified 12/11/18 12:53 Shock Penicillins Allergy Severe Anaphylactic Verified 12/11/18 12:53 Shock propoxyphene Allergy Severe Anaphylactic Verified 12/11/18 12:53 [From Darvocet-N] Shock lactose AdvReac Diarrhea Verified 12/11/18 12:53 metoclopramide [From Reglan] AdvReac Stomach Verified 12/11/18 12:53 Ache morphine AdvReac Headache Verified 12/11/18 12:53 Home Meds: Home Meds Dicyclomine [Bentyl] 10 mg PO QID 05/03/18 [History] Ondansetron HCl [Ondansetron] 8 mg PO TID PRN 05/03/18 [History] Ranitidine HCl [Ranitidine] 150 mg PO BEDTIME 05/03/18 [History] Vit Calc,Iron,Folic [ Vitamins] 1 tab PO DAILY 05/23/18 [ History] Bethanechol [Urecholine] 25 mg PO TID 09/01/18 [History] Hydrocortisone [Anusol-HC] 1 applic RECTAL DAILY 09/01/18 [History] Lactobacillus Rhamnosus GG [Culturelle] 1 cap PO DAILY 09/01/18 [History] Acetaminophen [Tylenol Extra Strength] 1,000 mg PO TID PRN 11/23/18 [History] Amitriptyline [Elavil] 25 mg PO BEDTIME 11/23/18 [History] Cod Liver Oil/Zinc Oxide [Desitin Diaper Rash 40% Paste] 1 appful TOP Q2H PRN [History] Dronabinol [Marinol] 5 mg PO BIDAC 11/23/18 [History] Fluticasone Propionate [Flonase] 1 spray NASBOTH BID PRN 11/23/18 [History] Gabapentin [Neurontin] 200 mg PO TID 11/23/18 [History] HYDROmorphone [Dilaudid] 2 mg PO Q4H PRN 11/23/18 [History] Hydrocortisone [Anusol-HC] 1 appful RC TID PRN 11/23/18 [History] Melatonin 6 mg PO BEDTIME 11/23/18 [History] Metoclopramide [Reglan] 5 mg PO QID 11/23/18 [History] Mirtazapine [Remeron] 15 mg PO BEDTIME 11/23/18 [History] Omeprazole Magnesium [Prilosec Otc] 40 mg PO BIDAC 11/23/18 [History] Promethazine [Phenergan] 25 mg PO Q6H PRN 11/23/18 [History] Simethicone 80 mg PO QID PRN 11/23/18 [History] Sulfamethoxazole/Trimethoprim [Bactrim Ds Tablet] 1 tab PO MOWEFR@08 11/23/18 [ History] traZODone HCl [Trazodone HCl] 50 mg PO BEDTIME 11/23/18 [History] HYDROmorphone [Dilaudid] 0.5 mg IVPUSH Q4H PRN syringe 12/04/18 [Rx] Ondansetron [Zofran] 4 mg IVPUSH Q6H PRN vial 12/04/18 [Rx] Vancomycin [Vancocin 125 MG/2.5 ML Soln] 125 mg PO QID cup 12/04/18 [Rx] diphenhydrAMINE [Benadryl] 25 mg IVPUSH Q6H PRN sdv 12/04/18 [Rx] diphenhydrAMINE [Benadryl] 25 mg PO Q6H PRN cap 12/04/18 [Rx] methylPREDNISolone Sod Succ [Solu-MEDROL] 20 mg IVPUSH Q8H sdv 12/04/18 [Rx] Past Medical History HEENT History: Reports: None Cardiovascular History: Reports: None Respiratory History: Reports: None Gastrointestinal History: Reports: Inflammatory Bowel Disease Other Gastrointestinal History: crohn's disease. colotis Genitourinary History: Reports: Acute Renal Failure, Chronic Renal Insuffiency GROCERY SPECIALIST History: Reports: None Musculoskeletal History: Reports: Back Pain, Chronic Neurological History: Reports: None Psychiatric History: Reports: None Endocrine/Metabolic History: Reports: None Hematologic History: Reports: Anemia Immunologic History: Reports: None Oncologic (Cancer) History: Reports: None Dermatologic History: Reports: None - Infectious Disease History Infectious Disease History: Reports: C-Difficile, Chicken Pox - Past Surgical History HEENT Surgical History: Reports: None GI Surgical History: Reports: Appendectomy, Cholecystectomy, Other (See Below) Other GI Surgeries/Procedures: partial sigmoidectomy Social & Family History - Family History Family Medical History: Noncontributory Neurological: Reports: Parkinson's Oncologic: Reports: Brain, Liver - Caffeine Use Caffeine Use: Reports: None - Living Situation & Occupation Living situation: Reports: , with Significant Other (from [place] but staying with her daughter in [place]) 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 GENERAL - Review of Systems Review Of Systems: See Below Constitutional: Reports: No Symptoms HEENT: Reports: No Symptoms Respiratory: Reports: No Symptoms Cardiovascular: Reports: No Symptoms Endocrine: Reports: No Symptoms GI/Abdominal: Reports: Abdominal Pain, Diarrhea, Nausea, Vomiting Musculoskeletal: Reports: No Symptoms Skin: Reports: No Symptoms Neurological: Reports: No Symptoms Psychiatric: Reports: No Symptoms Hematologic/Lymphatic: Reports: No Symptoms Immunologic: Reports: No Symptoms ED EXAM, GI/ABD - Physical Exam Exam: See Below Exam Limited By: No Limitations General Appearance: Alert, WD/WN, Mild Distress Eyes: Bilateral: Normal Appearance, EOMI Ears: Normal TMs Nose: Normal Inspection, Normal Mucosa, No Blood Throat/Mouth: Normal Inspection, Normal Lips, Normal Teeth, Normal Gums, Normal Oropharynx, Normal Voice, No Airway Compromise Head: Atraumatic, Normocephalic Neck: Normal Inspection, Supple, Non-Tender, Full Range of Motion Respiratory/Chest: No Respiratory Distress, Lungs Clear, Normal Breath Sounds, No Accessory Muscle Use, Chest Non-Tender Cardiovascular: Normal Peripheral Pulses, Regular Rate, Rhythm, No Edema, No Gallop, No JVD, No Murmur, No Rub GI/Abdominal Exam: Normal Bowel Sounds, Soft, Non-Tender, No Organomegaly, No Distention, No Abnormal Bruit, No Mass, Pelvis Stable Back Exam: Normal Inspection, Full Range of Motion, NT Extremities: Normal Inspection, Normal Range of Motion, Non-Tender, Normal Capillary Refill, No Pedal Edema Neurological: Alert, Oriented, CN II-XII Intact, Normal Cognition, Normal Gait, Normal Reflexes, No Motor/Sensory Deficits Psychiatric: Normal Affect, Normal Mood Skin Exam: Warm, Dry, Intact, Normal Color, No Rash Lymphatic: No Adenopathy Course - Vital Signs Last Recorded V/S: Last Vital Signs Temp 36.9 C 12/11/18 12:37 Pulse 101 H 12/11/18 12:37 Resp 20 12/11/18 12:37 BP 102/61 12/11/18 12:37 Pulse Ox 100 12/11/18 12:37 - Orders/Labs/Meds Orders: Active Orders 24 hr Category Date Time Status Abdomen 2V AP Flat Upright [CR] Stat Exams 12/11/18 12:56 Ordered Abdomen Pelvis wo Cont [CT] Stat Exams 12/11/18 13:51 Ordered Lactated Ringers @ 125 MLS/HR(1,000ml) Med 12/11/18 13:00 Ordered Lactated Ringers [Ringers, Lactated] 1,000 ml IV ASDIRECTED Sodium Chloride 0.9% [Saline Flush] Med 12/11/18 12:55 Ordered 10 ml FLUSH ASDIRECTED PRN Saline Lock Insert [OM.PC] Routine Oth 12/11/18 12:55 Ordered Medication Orders Lactated Ringer's (Ringers, Lactated) 1,000 mls @ 125 mls/hr IV ASDIRECTED MARY Last Admin: 12/11/18 13:10 Dose: 125 mls/hr Sodium Chloride (Saline Flush) 10 ml FLUSH ASDIRECTED PRN PRN Reason: Keep Vein Open Labs: Laboratory Tests 12/11/18 12/11/18 12/11/18 Range/Units 13:05 13:14 13:14 WBC 12.4 H (4.0-10.0) x10^3/uL RBC 4.34 (4.00-5.50) x10^6/uL Hgb 13.3 D (12.0-16.0) g/dL Hct 40.4 (33.0-47.0) % MCV 93.1 H D (78.0-93.0) fL MCH 30.6 (26.0-32.0) pg MCHC 32.9 (32.0-36.0) g/dL RDW Coeff of Brianda 13.2 (10.0-15.0) % Plt Count 452 H D (130-400) x10^3/uL Neut % (Auto) 82.7 H (50.0-80.0) % Lymph % (Auto) 8.7 L (25.0-50.0) % [place] % (Auto) 7.0 (2.0-11.0) % Eos % (Auto) 1.4 (0.0-4.0) % Baso % (Auto) 0.2 (0.2-1.2) % ESR 53 H (0-21) mm/hr Sodium 130 L D (136-145) mmol/L Potassium 3.0 L (3.5-5.1) mmol/L Chloride 91 L (98-107) mmol/L Carbon Dioxide 23 (21-32) mmol/L Anion Gap 19.0 (10-20) mmol/L BUN 43 H D (7-18) mg/dL Creatinine 2.1 H (0.55-1.02) mg/dL Est Cr Clr Drug Dosing TNP Estimated GFR (MDRD) 25 Glucose 97 (74-106) mg/dL Calcium 9.2 (8.5-10.1) mg/dL Corrected Calcium 9.20 (8.5-10.1) mg/dL Magnesium (1.8-2.4) mg/dL Total Bilirubin 0.4 (0.2-1.0) mg/dL AST 19 (15-37) U/L ALT 45 (14-59) U/L Alkaline Phosphatase 119 H (46-116) U/L C-Reactive Protein 0.9 (<=0.9) mg/dL Total Protein 8.4 H (6.4-8.2) g/dL Albumin 4.0 (3.4-5.0) g/dL Globulin 4.4 Albumin/Globulin Ratio 0.91 Urine Color Dark yellow H (YELLOW) Urine Appearance Cloudy H (CLEAR) Urine pH 5.5 (5.0-8.0) Ur Specific [place] 1.025 Urine Protein 30 H (NEGATIVE) mg/dL Urine Glucose (UA) Negative (NEGATIVE) mg/dL Urine Ketones Negative (NEGATIVE) mg/dL Urine Occult Blood Moderate H (NEGATIVE) Urine Nitrite Negative (NEGATIVE) Urine Bilirubin Small H (NEGATIVE) Urine Urobilinogen 0.2 (0.2) EU/dL Ur Leukocyte Esterase Trace H (NEGATIVE) Urine RBC 10-20 H (NOT SEEN) /HPF Urine WBC 5-10 H (NOT SEEN) /HPF Ur Squamous Epith Cells Few H (NEGATIVE) /HPF Amorphous Sediment Few Urine Bacteria Few H (NEGATIVE) /HPF Granular Casts Moderate H (NEGATIVE) /HPF Urine Mucus Few H (NEGATIVE) /LPF 12/11/18 Range/Units 13:14 WBC (4.0-10.0) x10^3/uL RBC (4.00-5.50) x10^6/uL Hgb (12.0-16.0) g/dL Hct (33.0-47.0) % MCV (78.0-93.0) fL MCH (26.0-32.0) pg MCHC (32.0-36.0) g/dL RDW Coeff of Brianda (10.0-15.0) % Plt Count (130-400) x10^3/uL Neut % (Auto) (50.0-80.0) % Lymph % (Auto) (25.0-50.0) % La[place] % (Auto) (2.0-11.0) % Eos % (Auto) (0.0-4.0) % Baso % (Auto) (0.2-1.2) % ESR (0-21) mm/hr Sodium (136-145) mmol/L Potassium (3.5-5.1) mmol/L Chloride (98-107) mmol/L Carbon Dioxide (21-32) mmol/L Anion Gap (10-20) mmol/L BUN (7-18) mg/dL Creatinine (0.55-1.02) mg/dL Est Cr Clr Drug Dosing Estimated GFR (MDRD) Glucose (74-106) mg/dL Calcium (8.5-10.1) mg/dL Corrected Calcium (8.5-10.1) mg/dL Magnesium 2.4 (1.8-2.4) mg/dL Total Bilirubin (0.2-1.0) mg/dL AST (15-37) U/L ALT (14-59) U/L Alkaline Phosphatase (46-116) U/L C-Reactive Protein (<=0.9) mg/dL Total Protein (6.4-8.2) g/dL Albumin (3.4-5.0) g/dL Globulin Albumin/Globulin Ratio Urine Color (YELLOW) Urine Appearance (CLEAR) Urine pH (5.0-8.0) Ur Specific [place] Urine Protein (NEGATIVE) mg/dL Urine Glucose (UA) (NEGATIVE) mg/dL Urine Ketones (NEGATIVE) mg/dL Urine Occult Blood (NEGATIVE) Urine Nitrite (NEGATIVE) Urine Bilirubin (NEGATIVE) Urine Urobilinogen (0.2) EU/dL Ur Leukocyte Esterase (NEGATIVE) Urine RBC (NOT SEEN) /HPF Urine WBC (NOT SEEN) /HPF Ur Squamous Epith Cells (NEGATIVE) /HPF Amorphous Sediment Urine Bacteria (NEGATIVE) /HPF Granular Casts (NEGATIVE) /HPF Urine Mucus (NEGATIVE) /LPF Meds: Medications Generic Name Dose Route Start Last Admin Trade Name Freq PRN Reason Stop Dose Admin Lactated Ringer's 1,000 mls @ 125 mls/hr 12/11/18 13:00 12/11/18 13:10 Ringers, Lactated IV 125 mls/hr ASDIRECTED MARY Administration Sodium Chloride 10 ml 12/11/18 12:55 Saline Flush FLUSH ASDIRECTED PRN Keep Vein Open Discontinued Medications Generic Name Dose Route Start Last Admin Trade Name Freq PRN Reason Stop Dose Admin Hydromorphone HCl 1 mg 12/11/18 12:59 12/11/18 13:18 Dilaudid IVPUSH 12/11/18 13:00 1 mg ONETIME ONE Administration Ondansetron HCl 4 mg 12/11/18 12:59 12/11/18 13:15 Zofran IVPUSH 12/11/18 13:00 4 mg ONETIME ONE Administration Departure - Departure Time of Disposition: 15:16 Disposition: Admitted As Inpatient 64 Condition: Fair Clinical Impression: Hyponatremia, Hypokalemia, Kidney failure Chronic kidney disease Qualifiers: Chronic kidney disease stage: stage 3 (moderate) Qualified Code(s): N18.3 - Chronic kidney disease, stage 3 (moderate) - Discharge Information *PRESCRIPTION DRUG MONITORING PROGRAM REVIEWED*: No *COPY OF PRESCRIPTION DRUG MONITORING REPORT IN PATIENT CHELSEY: No Referrals: Xiomy Oliva MD [Primary Care Provider] - ED Communication - ED Communication Date/Time Date: 12/11/18 Time Called: 15:10 - Discussed Case With (1) Discussed Case With (1): Admitting Provider (Dr. Fairbanks contacted regarding acute admission. He will admit patient.) - Problem List & Annotations (1) Renal failure (ARF), acute on chronic SNOMED Code(s): 751683258 Code(s): N17.9 - ACUTE KIDNEY FAILURE, UNSPECIFIED; N18.9 - CHRONIC KIDNEY DISEASE, UNSPECIFIED Status: Resolved Priority: Medium Current Visit: No Qualifiers: Acute renal failure type: unspecified Chronic kidney disease stage: unspecified stage Qualified Code(s): N17.9 - Acute kidney failure, unspecified ; N18.9 - Chronic kidney disease, unspecified (2) Hypokalemia SNOMED Code(s): 01014322 Code(s): E87.6 - HYPOKALEMIA Status: Acute Priority: Medium Current Visit: Yes (3) Hyponatremia SNOMED Code(s): 81926970 Code(s): E87.1 - HYPO-OSMOLALITY AND HYPONATREMIA Status: Acute Priority : Medium Current Visit: Yes (4) Chronic abdominal pain SNOMED Code(s): 913102439 Code(s): R10.9 - UNSPECIFIED ABDOMINAL PAIN; G89.29 - OTHER CHRONIC PAIN Status: Chronic Priority: Medium Current Visit: No (5) Nausea & vomiting SNOMED Code(s): 20562346 Code(s): R11.2 - NAUSEA WITH VOMITING, UNSPECIFIED Status: Resolved Priority: Medium Current Visit: No Qualifiers: Vomiting type: unspecified Vomiting Intractability: non-intractable Qualified Code(s): R11.2 - Nausea with vomiting, unspecified (6) Kidney failure SNOMED Code(s): 92788821 Code(s): N19 - UNSPECIFIED KIDNEY FAILURE Status: Acute Priority: Medium Current Visit: Yes Qualifiers: Renal failure chronicity: acute on chronic Acute renal failure type: unspecified Chronic kidney disease stage: unspecified stage Qualified Code(s ): N17.9 - Acute kidney failure, unspecified; N18.9 - Chronic kidney disease, unspecified - Problem List Review Problem List Initiated/Reviewed/Updated: Yes - My Orders Last 24 Hours: My Active Orders 12/11/18 12:55 Sodium Chloride 0.9% [Saline Flush] 10 ml FLUSH ASDIRECTED PRN Saline Lock Insert [OM.PC] Routine 12/11/18 12:56 Abdomen 2V AP Flat Upright [CR] Stat 12/11/18 13:00 Lactated Ringers @ 125 MLS/HR(1,000ml) Lactated Ringers [Ringers, Lactated] 1, 000 ml IV ASDIRECTED 12/11/18 13:51 Abdomen Pelvis wo Cont [CT] Stat - Assessment/Plan Last 24 Hours: My Active Orders 12/11/18 12:55 Sodium Chloride 0.9% [Saline Flush] 10 ml FLUSH ASDIRECTED PRN Saline Lock Insert [OM.PC] Routine 12/11/18 12:56 Abdomen 2V AP Flat Upright [CR] Stat 12/11/18 13:00 Lactated Ringers @ 125 MLS/HR(1,000ml) Lactated Ringers [Ringers, Lactated] 1, 000 ml IV ASDIRECTED 12/11/18 13:51 Abdomen Pelvis wo Cont [CT] Stat Plan: Acute admission to Dr. Fairbanks
[2018-12-11] MEDS: Ondansetron 4 MG/2 ML SDV IVPUSH PRN ×2 (16:17→21:19)
[2018-12-11] MEDS: HYDROmorphone 1 MG/ML Syringe IVPUSH PRN ×2 (16:17→21:26)
[2018-12-11] MEDS ORDERED: Acetaminophen 500 MG Tab PO PRN (17:50)
[2018-12-11] MEDS ORDERED: Simethicone 80 MG Tab.Chew PO PRN (17:50)
[2018-12-11] MEDS ORDERED: Menthol/Zinc Oxide Ointment 3.5 GM Tube TOP PRN (17:50)
[2018-12-11] MEDS ORDERED: Hydrocortisone 2.5% Crm 30 GM Tube TOP PRN (17:50)
[2018-12-11] MEDS ORDERED: Promethazine 25 MG Tab PO PRN (17:50)
[2018-12-11] MEDS ORDERED: Ondansetron 4 MG/2 ML SDV IVPUSH PRN (17:50)
[2018-12-11] MEDS ORDERED: Prochlorperazine 10 MG/2 ML SDV IV ONE (18:28)
--- NOTE | 2018-12-11 18:39 | PCM.HP ---
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 She had a gastrojejunostomy placed in 08/25, got an IV port for regular scheduled IV hydration last week and was in yesterday for a bolus of IV fluid. She was in hospital until 11/16, admitted again from 11/23 until 11/27, from 11/29 until 12/04, then at [facility] until 12/07. 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 She is now scheduled for a consult at [facility] at the end of this month. She is afraid of the infection risk from getting TPN, says she has actually regained a bit of weight compared to what she was last fall. Because of pain around her gastrostomy site she is being considered for a revision of the gastrojejunostomy. For most of her hospitalizations she has had diarrhea and vomiting, increased abdominal pain, and with the dehydration her creatinine goes up, then on D/C back to baseline of about 1.3. She had Rx for C. 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 Says she is a carrier. About 4 AM today she started having vomiting and diarrhea, and her abdominal pain was a lot worse. The past few weeks she has had more pain around the gastrojejunostomy, was worse today. She tries to avoid Dilaudid so takes it only irregularly, but took one today and it didnt help so she came to ER and was found again to have mild hyponatremia, hypokalemia and elevated creatinine as she has before. She is admitted for IV fluid and pain control. Thinks she will be able to take her oral medications, although even since admission she has had some spells of vomiting. Says she takes Zofran and alternates with Benadryl and Compazine. She has some itching and redo not think she got anything from her allergy list in the ER, no airway compromise or edema. Medical and surgical Hx, etc. see previous H&P Systems Review: No recent URI, never any lung problems, everything is mainly as noted in HPI. Exam: General: Very thin, no overt signs of malnutrition, but BP 102/61; alert and answers questions appropriately, during the exam was not in acute distress ENT: No redness of posterior pharynx, appears to have all her own teeth Neck: No masses Cardiac: Heart sounds regular and normal Chest: Lungs clear, no dyspnea Abdomen: No distention, bowel sounds are very active, no tenderness to gentle palpation and no redness or induration around the stoma in upper abdomen Extremities: Palpable pulses, no edema, quite thin Skin: Itching but no rash noted Neuro: Facial muscles, movement of arms and legs normal and symmetric Psych: She is upset by her illness but her affect is otherwise unremarkable Impression: -Devastating Crohn disease with continued pain, nausea and vomiting, dehydration , mild hypokalemia and hyponatremia -Paroxysms of vomiting in spite of IV Zofran, says she alternates Zofran, Compazine, Benadryl at home sometimes Plan: -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 physician [employer]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 will see her tomorrow -Getting IV with 20 of KCl at 75 mL per hour -Had a dose of Zofran, getting IV Compazine now also -BMP again tomorrow Right Lower Abdomen Pain Score (Numeric/FACES): 5 - Related Data Allergies/Adverse Reactions: Allergies Allergy/AdvReac Type Severity Reaction Status Date / Time codeine Allergy Severe Anaphylactic Verified 12/11/18 12:53 Shock Penicillins Allergy Severe Anaphylactic Verified 12/11/18 12:53 Shock propoxyphene Allergy Severe Anaphylactic Verified 12/11/18 12:53 [From Darvocet-N] Shock lactose AdvReac Diarrhea Verified 12/11/18 12:53 metoclopramide [From Reglan] AdvReac Stomach Verified 12/11/18 12:53 Ache morphine AdvReac Headache Verified 12/11/18 12:53 Home Medications: Home Meds Dicyclomine [Bentyl] 10 mg PO QID 05/03/18 [History] Ondansetron HCl [Ondansetron] 8 mg PO TID PRN 05/03/18 [History] Ranitidine HCl [Ranitidine] 150 mg PO BEDTIME 05/03/18 [History] Vit Calc,Iron,Folic [ Vitamins] 1 tab PO DAILY 05/23/18 [ History] Bethanechol [Urecholine] 25 mg PO TID 09/01/18 [History] Lactobacillus Rhamnosus GG [Culturelle] 1 cap PO DAILY 09/01/18 [History] Acetaminophen [Tylenol Extra Strength] 1,000 mg PO TID PRN 11/23/18 [History] Amitriptyline [Elavil] 50 mg PO BEDTIME 11/23/18 [History] Cod Liver Oil/Zinc Oxide [Desitin Diaper Rash 40% Paste] 1 appful TOP Q2H PRN [History] Dronabinol [Marinol] 5 mg PO BIDAC 11/23/18 [History] Gabapentin [Neurontin] 200 mg PO TID 11/23/18 [History] HYDROmorphone [Dilaudid] 2 mg PO Q4H PRN 11/23/18 [History] Hydrocortisone [Anusol-HC] 1 appful RC TID PRN 11/23/18 [History] Melatonin 6 mg PO BEDTIME 11/23/18 [History] Metoclopramide [Reglan] 5 mg PO QID 11/23/18 [History] Mirtazapine [Remeron] 15 mg PO BEDTIME 11/23/18 [History] Omeprazole Magnesium [Prilosec Otc] 40 mg PO BIDAC 11/23/18 [History] Promethazine [Phenergan] 25 mg PO Q6H PRN 11/23/18 [History] Simethicone 80 mg PO QID PRN 11/23/18 [History] Sulfamethoxazole/Trimethoprim [Bactrim Ds Tablet] 1 tab PO MOWEFR@08 11/23/18 [ History] traZODone HCl [Trazodone HCl] 50 mg PO BEDTIME 11/23/18 [History] Ondansetron [Zofran] 4 mg IVPUSH Q6H PRN vial 12/04/18 [Rx] diphenhydrAMINE [Benadryl] 25 mg PO Q6H PRN cap 12/04/18 [Rx] Past Medical History HEENT History: Reports: None Cardiovascular History: Reports: None Respiratory History: Reports: None Gastrointestinal History: Reports: Inflammatory Bowel Disease Other Gastrointestinal History: crohn's disease. 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 Musculoskeletal History: Reports: Back Pain, Chronic Neurological History: Reports: None Psychiatric History: Reports: None Endocrine/Metabolic History: Reports: None Hematologic History: Reports: Anemia Immunologic History: Reports: None Oncologic (Cancer) History: Reports: None Dermatologic History: Reports: None - Infectious Disease History Infectious Disease History: Reports: C-Difficile, Chicken Pox - Past Surgical History HEENT Surgical History: Reports: None GI Surgical History: Reports: Appendectomy, Cholecystectomy, Other (See Below) Other GI Surgeries/Procedures: partial sigmoidectomy Social & Family History - Family History Family Medical History: Noncontributory Neurological: Reports: Parkinson's Oncologic: Reports: Brain, Liver - Tobacco Use Smoking Status *Q: Never Smoker - Caffeine Use Caffeine Use: Reports: None - Recreational Drug Use Recreational Drug Use: No - Living Situation & Occupation Living situation: Reports: , with Significant Other (from [place] but staying with her daughter in [place]) 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) H&P Review of Systems - Review of Systems: Review Of Systems: See Below Exam - Exam Exam: See Below - Vital Signs Vital Signs: Last Vital Signs Temp 36.8 C 12/11/18 17:12 Pulse 76 12/11/18 17:12 Resp 16 12/11/18 17:12 BP 102/61 12/11/18 17:12 Pulse Ox 98 12/11/18 17:12 Weight: 39.19 kg - Patient Data Lab Results Last 24 hrs: Laboratory Results - last 24 hr 12/11/18 12/11/18 12/11/18 Range/Units 13:05 13:14 13:14 WBC 12.4 H (4.0-10.0) x10^3/uL RBC 4.34 (4.00-5.50) x10^6/uL Hgb 13.3 D (12.0-16.0) g/dL Hct 40.4 (33.0-47.0) % MCV 93.1 H D (78.0-93.0) fL MCH 30.6 (26.0-32.0) pg MCHC 32.9 (32.0-36.0) g/dL RDW Coeff of Brianda 13.2 (10.0-15.0) % Plt Count 452 H D (130-400) x10^3/uL Neut % (Auto) 82.7 H (50.0-80.0) % Lymph % (Auto) 8.7 L (25.0-50.0) % Amelia % (Auto) 7.0 (2.0-11.0) % Eos % (Auto) 1.4 (0.0-4.0) % Baso % (Auto) 0.2 (0.2-1.2) % ESR 53 H (0-21) mm/hr Sodium 130 L D (136-145) mmol/L Potassium 3.0 L (3.5-5.1) mmol/L Chloride 91 L (98-107) mmol/L Carbon Dioxide 23 (21-32) mmol/L Anion Gap 19.0 (10-20) mmol/L BUN 43 H D (7-18) mg/dL Creatinine 2.1 H (0.55-1.02) mg/dL Est Cr Clr Drug Dosing TNP Estimated GFR (MDRD) 25 Glucose 97 (74-106) mg/dL Calcium 9.2 (8.5-10.1) mg/dL Corrected Calcium 9.20 (8.5-10.1) mg/dL Magnesium (1.8-2.4) mg/dL Total Bilirubin 0.4 (0.2-1.0) mg/dL AST 19 (15-37) U/L ALT 45 (14-59) U/L Alkaline Phosphatase 119 H (46-116) U/L C-Reactive Protein 0.9 (<=0.9) mg/dL Total Protein 8.4 H (6.4-8.2) g/dL Albumin 4.0 (3.4-5.0) g/dL Globulin 4.4 Albumin/Globulin Ratio 0.91 Urine Color Dark yellow H (YELLOW) Urine Appearance Cloudy H (CLEAR) Urine pH 5.5 (5.0-8.0) Ur Specific Stephens 1.025 Urine Protein 30 H (NEGATIVE) mg/dL Urine Glucose (UA) Negative (NEGATIVE) mg/dL Urine Ketones Negative (NEGATIVE) mg/dL Urine Occult Blood Moderate H (NEGATIVE) Urine Nitrite Negative (NEGATIVE) Urine Bilirubin Small H (NEGATIVE) Urine Urobilinogen 0.2 (0.2) EU/dL Ur Leukocyte Esterase Trace H (NEGATIVE) Urine RBC 10-20 H (NOT SEEN) /HPF Urine WBC 5-10 H (NOT SEEN) /HPF Ur Squamous Epith Cells Few H (NEGATIVE) /HPF Amorphous Sediment Few Urine Bacteria Few H (NEGATIVE) /HPF Granular Casts Moderate H (NEGATIVE) /HPF Urine Mucus Few H (NEGATIVE) /LPF 12/11/18 Range/Units 13:14 WBC (4.0-10.0) x10^3/uL RBC (4.00-5.50) x10^6/uL Hgb (12.0-16.0) g/dL Hct (33.0-47.0) % MCV (78.0-93.0) fL MCH (26.0-32.0) pg MCHC (32.0-36.0) g/dL RDW Coeff of Brianda (10.0-15.0) % Plt Count (130-400) x10^3/uL Neut % (Auto) (50.0-80.0) % Lymph % (Auto) (25.0-50.0) % Amelia % (Auto) (2.0-11.0) % Eos % (Auto) (0.0-4.0) % Baso % (Auto) (0.2-1.2) % ESR (0-21) mm/hr Sodium (136-145) mmol/L Potassium (3.5-5.1) mmol/L Chloride (98-107) mmol/L Carbon Dioxide (21-32) mmol/L Anion Gap (10-20) mmol/L BUN (7-18) mg/dL Creatinine (0.55-1.02) mg/dL Est Cr Clr Drug Dosing Estimated GFR (MDRD) Glucose (74-106) mg/dL Calcium (8.5-10.1) mg/dL Corrected Calcium (8.5-10.1) mg/dL Magnesium 2.4 (1.8-2.4) mg/dL Total Bilirubin (0.2-1.0) mg/dL AST (15-37) U/L ALT (14-59) U/L Alkaline Phosphatase (46-116) U/L C-Reactive Protein (<=0.9) mg/dL Total Protein (6.4-8.2) g/dL Albumin (3.4-5.0) g/dL Globulin Albumin/Globulin Ratio Urine Color (YELLOW) Urine Appearance (CLEAR) Urine pH (5.0-8.0) Ur Specific Stephens Urine Protein (NEGATIVE) mg/dL Urine Glucose (UA) (NEGATIVE) mg/dL Urine Ketones (NEGATIVE) mg/dL Urine Occult Blood (NEGATIVE) Urine Nitrite (NEGATIVE) Urine Bilirubin (NEGATIVE) Urine Urobilinogen (0.2) EU/dL Ur Leukocyte Esterase (NEGATIVE) Urine RBC (NOT SEEN) /HPF Urine WBC (NOT SEEN) /HPF Ur Squamous Epith Cells (NEGATIVE) /HPF Amorphous Sediment Urine Bacteria (NEGATIVE) /HPF Granular Casts (NEGATIVE) /HPF Urine Mucus (NEGATIVE) /LPF Result Diagrams: 12/11/18 13:14 12/11/18 13:14 Problem List Initiated/Reviewed/Updated: Yes Orders Last 24hrs: Active Orders 24 hr Category Date Time Status Patient Status [ADT] Routine ADT 12/11/18 15:06 Active Patient Status [ADT] Routine ADT 12/11/18 17:45 Active Central Line Assessment [RC] 08,20 Care 12/11/18 16:50 Active Oxygen Therapy [RC] .PRN Care 12/11/18 17:45 Active VTE/DVT Education [RC] PER UNIT ROUTINE Care 12/11/18 17:45 Active Vital Signs [RC] 06,10,14,18,22,02 Care 12/11/18 17:45 Active Full Liquid Diet [DIET] Diet 12/11/18 Dinner Active Abdomen 2V AP Flat Upright [CR] Stat Exams 12/11/18 12:56 Taken Abdomen Pelvis wo Cont [CT] Stat Exams 12/11/18 13:51 Taken BASIC METABOLIC PANEL,BMP [CHEM] Routine Lab 12/12/18 07:30 Ordered CULTURE MRSA SURVEY [RM] Routine Lab 12/11/18 15:42 Received CULTURE URINE [RM] Stat Lab 12/11/18 13:05 Received Acetaminophen [Tylenol Extra Strength] Med 12/11/18 17:50 Active 1,000 mg PO TID PRN Amitriptyline [Elavil] Med 12/11/18 20:00 Active 50 mg PO BEDTIME Bethanechol [Urecholine] Med 12/11/18 20:00 Active 25 mg PO TID Cod Liver Oil/Zinc Oxide Med 12/11/18 17:50 Pending 1 appful TOP Q2H PRN D5 1/2 NS w/ 20 mEq/L KCl 1,000 ml Med 12/11/18 15:15 Active IV ASDIRECTED Dicyclomine [Bentyl] Med 12/11/18 20:00 Active 10 mg PO QID Dronabinol [Marinol] Med 12/12/18 07:00 Pending 5 mg PO BIDAC Gabapentin [Neurontin] Med 12/11/18 20:00 Active 200 mg PO TID HYDROmorphone [Dilaudid] Med 12/11/18 15:47 Active 2 mg IVPUSH Q2H PRN Hydrocortisone [Anusol-HC] Med 12/11/18 17:50 Ordered 1 appful RC TID PRN Lactated Ringers [Ringers, Lactated] 1,000 ml Med 12/11/18 13:00 Active IV ASDIRECTED Lactobacillus Rhamnosus GG [Culturelle] Med 12/12/18 08:00 Active 1 cap PO DAILY Melatonin Med 12/11/18 20:00 Active 6 mg PO BEDTIME Mirtazapine [Remeron] Med 12/11/18 20:00 Active 15 mg PO BEDTIME Omeprazole Med 12/12/18 07:00 Active 20 mg PO BIDAC Ondansetron [Zofran] Med 12/11/18 15:48 Active 4 mg IVPUSH Q6H PRN Ondansetron [Zofran] Med 12/11/18 17:50 Active 4 mg IVPUSH Q6H PRN Vit Calc,Iron,Folic [ Vitamins] Med 12/12/18 08:00 Ordered 1 tab PO DAILY Prochlorperazine [Compazine] Med 12/11/18 18:28 Once 10 mg IV ONETIME ONE Promethazine [Phenergan] Med 12/11/18 17:50 Active 25 mg PO Q6H PRN Simethicone Med 12/11/18 17:50 Active 80 mg PO QID PRN Sodium Chloride 0.9% [Saline Flush] Med 12/11/18 12:55 Active 10 ml FLUSH ASDIRECTED PRN Sulfamethoxazole/Trimethoprim [Septra DS] Med 12/12/18 08:00 Active 1 tab PO MOWEFR@08 diphenhydrAMINE [Benadryl] Med 12/11/18 17:50 Active 25 mg PO Q6H PRN traZODone Med 12/11/18 20:00 Active 50 mg PO BEDTIME Saline Lock Insert [OM.PC] Routine Oth 12/11/18 12:55 Ordered Code Status [Resuscitation Status] Routine Resus Stat 12/11/18 16:45 Ordered Medication Orders Acetaminophen (Tylenol Extra Strength) 1,000 mg PO TID PRN PRN Reason: Pain Amitriptyline HCl (Elavil) 50 mg PO BEDTIME MARY Bethanechol Chloride (Urecholine) 25 mg PO TID MARY Dicyclomine HCl (Bentyl) 10 mg PO QID MARY Diphenhydramine HCl (Benadryl) 25 mg PO Q6H PRN PRN Reason: Nausea Gabapentin (Neurontin) 200 mg PO TID MARY Hydrocortisone (Hydrocortisone 2.5% Crm) 0 gm TOP TID PRN PRN Reason: ALYCIA AREA irritation Hydromorphone HCl (Dilaudid) 2 mg IVPUSH Q2H PRN PRN Reason: Pain Last Admin: 12/11/18 16:17 Dose: 2 mg Lactated Ringer's (Ringers, Lactated) 1,000 mls @ 125 mls/hr IV ASDIRECTED [facility] Last Admin: 12/11/18 13:10 Dose: 125 mls/hr Potassium Chloride/Dextrose/Sod Cl (D5 1/2 Ns W/ 20 Meq/L Kcl) 1,000 mls @ 75 mls/hr IV ASDIRECTED [facility] Last Admin: 12/11/18 15:32 Dose: 75 mls/hr Infusion: 12/11/18 15:32 Dose: 75 mls/hr Admin: 12/11/18 15:13 Dose: 75 mls/hr Lactobacillus Rhamnosus (Culturelle) 1 cap PO DAILY [facility] Melatonin (Melatonin) 6 mg PO BEDTIME MARY Mirtazapine (Remeron) 15 mg PO BEDTIME [facility] Cod Liver Oil/Zinc (Oxide - 1 Appful) 1 appful TOP Q2H PRN PRN Reason: Rash Dronabinol [Marinol] (5mg) 5 mg PO BIDAC [facility] Vit Calc, Iron,Folic [ Vitamins] 1 tab PO DAILY [facility] Omeprazole (Omeprazole) 20 mg PO BIDAC MARY Ondansetron HCl (Zofran) 4 mg IVPUSH Q6H PRN PRN Reason: Nausea Last Admin: 12/11/18 16:17 Dose: 4 mg Ondansetron HCl (Zofran) 4 mg IVPUSH Q6H PRN PRN Reason: Nausea Prochlorperazine Edisylate (Compazine) 10 mg IV ONETIME ONE Stop: 12/11/18 18:29 Promethazine HCl (Phenergan) 25 mg PO Q6H PRN PRN Reason: Nausea Simethicone (Simethicone) 80 mg PO QID PRN PRN Reason: Gas Sodium Chloride (Saline Flush) 10 ml FLUSH ASDIRECTED PRN PRN Reason: Keep Vein Open Trazodone HCl (Trazodone) 50 mg PO BEDTIME [facility] Trimethoprim/Sulfamethoxazole (Septra Ds) 1 tab PO MOWEFR@08 [facility]
[2018-12-11] MEDS: Gabapentin 100 MG Cap PO SCH (21:13)
[2018-12-11] MEDS: traZODone 50 MG Tab PO SCH (21:13)
[2018-12-11] MEDS: Dicyclomine 10 MG Cap PO SCH (21:13)
[2018-12-11] MEDS: Mirtazapine 15 MG Tab PO SCH (21:13)
[2018-12-11] MEDS: Amitriptyline 25 MG Tab PO SCH (21:13)
[2018-12-11] MEDS: Melatonin 3 MG Tab PO SCH (21:13)
[2018-12-11] MEDS: diphenhydrAMINE 25 MG Cap PO PRN (21:35)
[2018-12-12] MEDS: Omeprazole 20 MG Cap.CR PO SCH ×2 (06:10→16:51)
[2018-12-12] MEDS: D5 1/2 NS w/ 20 mEq/L KCl 1,000 ML IV SCH (06:12)
[2018-12-12] MEDS: Ondansetron 4 MG/2 ML SDV IVPUSH PRN ×2 (06:13→12:38)
[2018-12-12] MEDS: HYDROmorphone 1 MG/ML Syringe IVPUSH PRN ×4 (06:16→20:10)
[2018-12-12] MEDS ORDERED: DRONABINOL 5 MG PO SCH (07:00)
[2018-12-12] MEDS ORDERED: Sulfamethoxazole/Trimethoprim 800-160 MG Tab PO SCH (08:00)
--- NOTE | 2018-12-12 08:02 | CR ---
[id number] RAD/RAD Abd Flat and Upright 2V EXAM: RAD Abd Flat and Upright 2V INDICATION: ABDOMINAL PAIN. COMPARISON: CT abdomen pelvis 12/03/2018. DISCUSSION: Unobstructed bowel gas pattern. No radiographically evident pneumoperitoneum. There are a few air-fluid levels within the bowel. Moderate amount of retained stool within the colon. Postsurgical changes within the pelvis. Additionally there are postsurgical clips within the right upper quadrant likely related to prior cholecystectomy. IMPRESSION: Nonobstructive bowel gas pattern. Moderate amount of retained stool within the colon. Maikel Medley DO 12/11/18 [id number] Thank you for allowing us to participate in the care of your patient.
--- NOTE | 2018-12-12 08:02 | CT ---
[id number] CT/CT Abdomen Pelvis WO IV EXAM: CT Abdomen Pelvis WO IV CLINICAL DATA: ABDOMINAL PAIN, NAUSEA, VOMITING. COMPARISON STUDY: December 03, 2018. FINDINGS: Evaluation is limited without the use of IV or oral contrast. Lung bases are clear. Subcentimeter hypodensities within the liver are stable and likely represent cysts. The liver is otherwise unremarkable. The gallbladder is surgically absent. The spleen, pancreas and adrenal glands are unremarkable. Bilateral nonobstructive renal calculi are not significant changed compared to the prior study. Additionally there are renal cysts bilaterally. No hydronephrosis or hydroureter. There is a midline GJ tube with tip terminating within the distal portion of the duodenum. Evaluation is limited secondary to lack of IV contrast however there appears to be prominence of the rectum distal to the anastomosis, not significantly changed when compared to the prior study. Additionally there is prominence of the proximal small bowel within this appears slightly decreased when compared to the prior study. Multiple prominent loops of jejunum measuring up to 2.1 cm. Large amount of stool within the cecum and transverse colon. Multiple prominent mesenteric lymph nodes. No free fluid or pneumoperitoneum. No fracture or osseous lesion. IMPRESSION: Evaluation is limited secondary lack of IV contrast. However, there is persistent but potentially improved circumferential wall thickening distal to the anastomosis as well as long segment small bowel. These findings are consistent with patient's history of inflammatory bowel disease. No evidence of obstruction. There are a few prominent loops of small bowel which may suggest ileus. No fluid collection or free air. Maikel Medley DO 12/11/18 [id number] Thank you for allowing us to participate in the care of your patient.
[2018-12-12 08:03] LABS: ANION GAP 11.3 mmol/L (10-20)
[2018-12-12] MEDS ORDERED: Sodium Chloride 0.9% with KCl 1,000 ML IV SCH (08:30)
[2018-12-12] MEDS: Gabapentin 100 MG Cap PO SCH ×3 (09:06→20:12)
[2018-12-12] MEDS: diphenhydrAMINE 25 MG Cap PO PRN (09:07)
[2018-12-12] MEDS: Dicyclomine 10 MG Cap PO SCH ×4 (09:07→20:15)
[2018-12-12] MEDS: Lactobacillus Rhamnosus GG (Probiotic) Cap PO SCH (09:08)
[2018-12-12] MEDS: Multivitamins with Iron/Calcium/Folic Acid/Minerals Tab PO SCH (09:11)
--- NOTE | 2018-12-12 10:16 | PCM.PN ---
- General Info Date of Service: 12/12/18 Subjective Update: 43 yo female with severe underlying Crohn's hospital day #2 admitted with dehydration, CHARIS, and a flare of chronic abdominal pain and nausea. Doing somewhat better this morning but still has some abdominal pain. Is controlled on current regimen. Nausea is improved and she is eating some. Tube feeds are on hold and she does not feel ready to resume them yet. No fever or chills. - Review of Systems General: Reports: No Symptoms HEENT: Reports: No Symptoms Pulmonary: Reports: No Symptoms Cardiovascular: Reports: No Symptoms Gastrointestinal: Reports: Abdominal Pain, Nausea Genitourinary: Reports: No Symptoms Musculoskeletal: Reports: No Symptoms Skin: Reports: No Symptoms Neurological: Reports: No Symptoms - Patient Data Vitals - Most Recent: Last Vital Signs Temp 36.7 C 12/12/18 05:58 Pulse 65 12/12/18 05:58 Resp 16 12/12/18 05:58 BP 101/53 L 12/12/18 05:58 Pulse Ox 98 12/12/18 05:58 Weight - Most Recent: 39 kg I&O - Last 24 Hours: Intake & Output 12/11/18 12/12/18 12/12/18 22:59 06:59 14:59 Intake Total 191 1664 Output Total 500 300 Balance 191 1164 -300 Lab Results Last 24 Hours: Laboratory Results - last 24 hr 12/11/18 12/11/18 12/11/18 Range/Units 13:05 13:14 13:14 WBC 12.4 H (4.0-10.0) x10^3/uL RBC 4.34 (4.00-5.50) x10^6/uL Hgb 13.3 D (12.0-16.0) g/dL Hct 40.4 (33.0-47.0) % MCV 93.1 H D (78.0-93.0) fL MCH 30.6 (26.0-32.0) pg MCHC 32.9 (32.0-36.0) g/dL RDW Coeff of Brianda 13.2 (10.0-15.0) % Plt Count 452 H D (130-400) x10^3/uL Neut % (Auto) 82.7 H (50.0-80.0) % Lymph % (Auto) 8.7 L (25.0-50.0) % Lane % (Auto) 7.0 (2.0-11.0) % Eos % (Auto) 1.4 (0.0-4.0) % Baso % (Auto) 0.2 (0.2-1.2) % ESR 53 H (0-21) mm/hr Sodium 130 L D (136-145) mmol/L Potassium 3.0 L (3.5-5.1) mmol/L Chloride 91 L (98-107) mmol/L Carbon Dioxide 23 (21-32) mmol/L Anion Gap 19.0 (10-20) mmol/L BUN 43 H D (7-18) mg/dL Creatinine 2.1 H (0.55-1.02) mg/dL Est Cr Clr Drug Dosing TNP Estimated GFR (MDRD) 25 Glucose 97 (74-106) mg/dL Calcium 9.2 (8.5-10.1) mg/dL Corrected Calcium 9.20 (8.5-10.1) mg/dL Magnesium (1.8-2.4) mg/dL Total Bilirubin 0.4 (0.2-1.0) mg/dL AST 19 (15-37) U/L ALT 45 (14-59) U/L Alkaline Phosphatase 119 H (46-116) U/L C-Reactive Protein 0.9 (<=0.9) mg/dL Total Protein 8.4 H (6.4-8.2) g/dL Albumin 4.0 (3.4-5.0) g/dL Globulin 4.4 Albumin/Globulin Ratio 0.91 Urine Color Dark yellow H (YELLOW) Urine Appearance Cloudy H (CLEAR) Urine pH 5.5 (5.0-8.0) Ur Specific [place] 1.025 Urine Protein 30 H (NEGATIVE) mg/dL Urine Glucose (UA) Negative (NEGATIVE) mg/dL Urine Ketones Negative (NEGATIVE) mg/dL Urine Occult Blood Moderate H (NEGATIVE) Urine Nitrite Negative (NEGATIVE) Urine Bilirubin Small H (NEGATIVE) Urine Urobilinogen 0.2 (0.2) EU/dL Ur Leukocyte Esterase Trace H (NEGATIVE) Urine RBC 10-20 H (NOT SEEN) /HPF Urine WBC 5-10 H (NOT SEEN) /HPF Ur Squamous Epith Cells Few H (NEGATIVE) /HPF Amorphous Sediment Few Urine Bacteria Few H (NEGATIVE) /HPF Granular Casts Moderate H (NEGATIVE) /HPF Urine Mucus Few H (NEGATIVE) /LPF 12/11/18 12/12/18 Range/Units 13:14 06:25 WBC (4.0-10.0) x10^3/uL RBC (4.00-5.50) x10^6/uL Hgb (12.0-16.0) g/dL Hct (33.0-47.0) % MCV (78.0-93.0) fL MCH (26.0-32.0) pg MCHC (32.0-36.0) g/dL RDW Coeff of Brianda (10.0-15.0) % Plt Count (130-400) x10^3/uL Neut % (Auto) (50.0-80.0) % Lymph % (Auto) (25.0-50.0) % Lane % (Auto) (2.0-11.0) % Eos % (Auto) (0.0-4.0) % Baso % (Auto) (0.2-1.2) % ESR (0-21) mm/hr Sodium 136 (136-145) mmol/L Potassium 2.3 L* (3.5-5.1) mmol/L Chloride 99 (98-107) mmol/L Carbon Dioxide 28 (21-32) mmol/L Anion Gap 11.3 (10-20) mmol/L BUN 32 H (7-18) mg/dL Creatinine 1.6 H (0.55-1.02) mg/dL Est Cr Clr Drug Dosing 27.34 Estimated GFR (MDRD) 35 Glucose 80 (74-106) mg/dL Calcium 8.6 (8.5-10.1) mg/dL Corrected Calcium (8.5-10.1) mg/dL Magnesium 2.4 (1.8-2.4) mg/dL Total Bilirubin (0.2-1.0) mg/dL AST (15-37) U/L ALT (14-59) U/L Alkaline Phosphatase (46-116) U/L C-Reactive Protein (<=0.9) mg/dL Total Protein (6.4-8.2) g/dL Albumin (3.4-5.0) g/dL Globulin Albumin/Globulin Ratio Urine Color (YELLOW) Urine Appearance (CLEAR) Urine pH (5.0-8.0) Ur Specific [place] Urine Protein (NEGATIVE) mg/dL Urine Glucose (UA) (NEGATIVE) mg/dL Urine Ketones (NEGATIVE) mg/dL Urine Occult Blood (NEGATIVE) Urine Nitrite (NEGATIVE) Urine Bilirubin (NEGATIVE) Urine Urobilinogen (0.2) EU/dL Ur Leukocyte Esterase (NEGATIVE) Urine RBC (NOT SEEN) /HPF Urine WBC (NOT SEEN) /HPF Ur Squamous Epith Cells (NEGATIVE) /HPF Amorphous Sediment Urine Bacteria (NEGATIVE) /HPF Granular Casts (NEGATIVE) /HPF Urine Mucus (NEGATIVE) /LPF [place] Results Last 24 Hours: Microbiology 12/11/18 13:05 Urine Culture - Preliminary Urine, Clean Catch Gram Negative Rods Staphylococcus Coagulase Neg Med Orders - Current: Current Medications Acetaminophen (Tylenol Extra Strength) 1,000 mg PO TID PRN PRN Reason: Pain Amitriptyline HCl (Elavil) 50 mg PO BEDTIME [facility] Last Admin: 12/11/18 21:13 Dose: 50 mg Bethanechol Chloride (Urecholine) 25 mg PO TID [facility] Last Admin: 12/12/18 09:07 Dose: 25 mg Calamine/Phenol (Calmoseptine) 0 gm TOP Q2H PRN PRN Reason: Rash Dicyclomine HCl (Bentyl) 10 mg PO QID [facility] Last Admin: 12/12/18 09:07 Dose: 10 mg Diphenhydramine HCl (Benadryl) 25 mg PO Q6H PRN PRN Reason: Nausea Last Admin: 12/12/18 09:07 Dose: 25 mg Gabapentin (Neurontin) 200 mg PO TID [facility] Last Admin: 12/12/18 09:06 Dose: 200 mg Hydrocortisone (Hydrocortisone 2.5% Crm) 0 gm TOP TID PRN PRN Reason: ALYCIA AREA irritation Hydromorphone HCl (Dilaudid) 2 mg IVPUSH Q2H PRN PRN Reason: Pain Last Admin: 12/12/18 09:07 Dose: 2 mg Potassium Chloride/Sodium Chloride (Normal Saline With 40 Meq Kcl) 1,000 mls @ 100 mls/hr IV ASDIRECTED [facility] Stop: 12/12/18 19:00 Last Admin: 12/12/18 09:08 Dose: 100 mls/hr Lactobacillus Rhamnosus (Culturelle) 1 cap PO DAILY [facility] Last Admin: 12/12/18 09:08 Dose: 1 cap Melatonin (Melatonin) 6 mg PO BEDTIME [facility] Last Admin: 12/11/18 21:13 Dose: 6 mg Mirtazapine (Remeron) 15 mg PO BEDTIME [facility] Last Admin: 12/11/18 21:13 Dose: 15 mg Multivitamins/Minerals (Thera M Plus) 1 tab PO DAILY [facility] Last Admin: 12/12/18 09:11 Dose: Not Given Dronabinol [Marinol] (5mg Own Med ) 5 mg PO BIDAC [facility] Last Admin: 12/12/18 06:11 Dose: 5 mg Omeprazole (Omeprazole) 20 mg PO BIDAC [facility] Last Admin: 12/12/18 06:10 Dose: 20 mg Ondansetron HCl (Zofran) 4 mg IVPUSH Q6H PRN PRN Reason: Nausea Last Admin: 12/12/18 06:13 Dose: 4 mg Ondansetron HCl (Zofran) 4 mg IVPUSH Q6H PRN PRN Reason: Nausea Potassium Bicarbonate (Klor-Con Ef) 25 meq PO BID [facility] Promethazine HCl (Phenergan) 25 mg PO Q6H PRN PRN Reason: Nausea Simethicone (Simethicone) 80 mg PO QID PRN PRN Reason: Gas Sodium Chloride (Saline Flush) 10 ml FLUSH ASDIRECTED PRN PRN Reason: Keep Vein Open Trazodone HCl (Trazodone) 50 mg PO BEDTIME [facility] Last Admin: 12/11/18 21:13 Dose: 50 mg Trimethoprim/Sulfamethoxazole (Septra Ds) 1 tab PO MOWEFR@08 [facility] Last Admin: 12/12/18 09:07 Dose: 1 tab Discontinued Medications Hydromorphone HCl (Dilaudid) 1 mg IVPUSH ONETIME ONE Stop: 12/11/18 13:00 Last Admin: 12/11/18 13:18 Dose: 1 mg Lactated Ringer's (Ringers, Lactated) 1,000 mls @ 125 mls/hr IV ASDIRECTED [facility] Last Admin: 12/11/18 13:10 Dose: 125 mls/hr Potassium Chloride/Dextrose/Sod Cl (D5 1/2 Ns W/ 20 Meq/L Kcl) 1,000 mls @ 75 mls/hr IV ASDIRECTED [facility] Last Admin: 12/12/18 06:12 Dose: 75 mls/hr Ondansetron HCl (Zofran) 4 mg IVPUSH ONETIME ONE Stop: 12/11/18 13:00 Last Admin: 12/11/18 13:15 Dose: 4 mg Prochlorperazine Edisylate (Compazine) 10 mg IV ONETIME ONE Stop: 12/11/18 18:29 Last Admin: 12/11/18 19:25 Dose: 10 mg - Exam General: Alert, Cooperative, No Acute Distress HEENT: Mucous Membr. Moist/[place] Neck: Supple, Trachea Midline, No Thyromegaly. No: Lymphadenopathy Lungs: Clear to Auscultation, Normal Respiratory Effort Cardiovascular: Regular Rate, Regular Rhythm, No Murmurs GI/Abdominal Exam: Normal Bowel Sounds, Soft, No Organomegaly, No Distention, No Mass, Tender (diffuse without any rebound, rigidity, or guarding) Peripheral Pulses: 2+: Radial (L), Radial (R) Skin: Warm, Dry, Intact - Problem List & Annotations (1) Dehydration SNOMED Code(s): 64452349 Code(s): E86.0 - DEHYDRATION Status: Acute Current Visit: No (2) CHARIS (acute kidney injury) SNOMED Code(s): 50978062 Code(s): N17.9 - ACUTE KIDNEY FAILURE, UNSPECIFIED Status: Acute Current Visit: No (3) Hypokalemia SNOMED Code(s): 47087968 Code(s): E87.6 - HYPOKALEMIA Status: Acute Priority: Medium Current Visit: Yes (4) Chronic abdominal pain SNOMED Code(s): 996203737 Code(s): R10.9 - UNSPECIFIED ABDOMINAL PAIN; G89.29 - OTHER CHRONIC PAIN Status: Chronic Priority: Medium Current Visit: No (5) Crohns disease SNOMED Code(s): 07251477 Code(s): K50.90 - CROHN'S DISEASE, UNSPECIFIED, WITHOUT COMPLICATIONS Status: Chronic Current Visit: No Qualifiers: Gastrointestinal tract location: unspecified location Digestive disease complication type: unspecified complication Qualified Code(s): K50.919 - Crohn 's disease, unspecified, with unspecified complications (6) On tube feeding diet SNOMED Code(s): 92764531 Code(s): Z78.9 - OTHER SPECIFIED HEALTH STATUS Status: Chronic Current Visit: No (7) Severe malnutrition SNOMED Code(s): 17281642 Code(s): E43 - UNSPECIFIED SEVERE PROTEIN-CALORIE MALNUTRITION Status: Chronic Current Visit: No (8) Nausea & vomiting SNOMED Code(s): 49857802 Code(s): R11.2 - NAUSEA WITH VOMITING, UNSPECIFIED Status: Chronic Priority: Medium Current Visit: No Qualifiers: Vomiting type: unspecified Vomiting Intractability: non-intractable Qualified Code(s): R11.2 - Nausea with vomiting, unspecified - Problem List Review Problem List Initiated/Reviewed/Updated: Yes - My Orders Last 24 Hours: My Active Orders 12/12/18 08:30 Sodium Chloride 0.9% with KCl [Normal Saline with 40 mEq KCl] 1,000 ml IV ASDIRECTED 12/12/18 10:00 Potassium Bicarbonate [Klor-Con EF] 25 meq PO BID 12/13/18 05:11 BASIC METABOLIC PANEL,BMP [CHEM] Routine CBC WITH AUTO DIFF [HEME] Routine - Assessment Assessment:: 43 yo female admitted with a flare of abdominal pain and nausea resulting in decreased intake leading to CHARIS and dehydration. Feeling somewhat better today but pain still above baseline. - Plan Plan:: #1 Dehydration #2 Acute Kidney Injury #3 Hypokalemia - Labs looking better this am but not back to baseline. - Will resume PO potassium today. - Also change fluids to 1/2 NS with 40 KCL for another 1 L today. Then she can drink PO fluids. #4 Chronic Abdominal Pain #5 Crohn's disease #6 On tube feeding diets #7 Severe Malnutrition #8 Nausea and vomiting - Continue current pain and nausea medications as this is working well. - Will wean hydromorphone to PO as soon as able. - Hold tube feedings today with plan to resume tomorrow am if she continues to improve. - She can eat ad keon. - She is working closely with GI for management of her Crohn's as she awaits a consult at the [facility] later this month. - Continue home medications. Patient will remain on acute today - anticipate dismissal later in the week. Only change today is to her type of IV fluids. Code status is full. Patient will ambulate for VTE prophylaxis.
[2018-12-12] MEDS: Potassium Bicarbonate 25 MEQ Tab.EFF PO SCH ×2 (12:38→20:12)
[2018-12-12] MEDS ORDERED: predniSONE 20 MG Tab PO ONE (13:32)
[2018-12-12] MEDS: hydrOXYzine HCl 25 MG Tab PO PRN (15:10)
[2018-12-12] MEDS: DRONABINOL 5 MG PO SCH (16:52)
[2018-12-12] MEDS ORDERED: Lidocaine/Prilocaine 2.5-2.5% Crm 5 GM Tube TOP ONE (18:14)
[2018-12-12] MEDS ORDERED: Sodium Chloride 0.9% 10 ML Syringe FLUSH PRN (18:21)
[2018-12-12] MEDS: traZODone 50 MG Tab PO SCH (20:12)
[2018-12-12] MEDS: Melatonin 3 MG Tab PO SCH (20:12)
[2018-12-12] MEDS: Amitriptyline 25 MG Tab PO SCH (20:13)
[2018-12-12] MEDS: Mirtazapine 15 MG Tab PO SCH (20:14)
[2018-12-13] MEDS: HYDROmorphone 1 MG/ML Syringe IVPUSH PRN ×2 (03:59→05:35)
[2018-12-13] MEDS: Ondansetron 4 MG/2 ML SDV IVPUSH PRN (05:31)
[2018-12-13] MEDS: Omeprazole 20 MG Cap.CR PO SCH ×2 (06:58→17:16)
[2018-12-13 07:30] LABS: ANION GAP 10.2 mmol/L (10-20)
[2018-12-13] MEDS: DRONABINOL 5 MG PO SCH ×2 (07:46→17:17)
[2018-12-13] MEDS: hydrOXYzine HCl 25 MG Tab PO PRN ×2 (07:47→14:20)
[2018-12-13] MEDS: Potassium Bicarbonate 25 MEQ Tab.EFF PO SCH ×2 (07:47→20:15)
[2018-12-13] MEDS: Multivitamins with Iron/Calcium/Folic Acid/Minerals Tab PO SCH (07:47)
[2018-12-13] MEDS: Lactobacillus Rhamnosus GG (Probiotic) Cap PO SCH (07:47)
[2018-12-13] MEDS: Dicyclomine 10 MG Cap PO SCH ×4 (07:48→20:15)
[2018-12-13] MEDS: Gabapentin 100 MG Cap PO SCH ×3 (07:48→20:15)
[2018-12-13] MEDS ORDERED: predniSONE 20 MG Tab PO SCH ×2 (08:00→10:22)
[2018-12-13] MEDS ORDERED: Ondansetron 4 MG Tab.DIS PO PRN (08:33)
--- NOTE | 2018-12-13 09:11 | PCM.PN ---
- General Info Date of Service: 12/13/18 Subjective Update: 43 yo female hospital day #3 for acute on chronic abdominal pain and nausea resulting in dehydration and CHARIS. Patient did well overnight. Slept very well and is feeling refreshed this am. Does feel slightly drowsy. Nursing notes she has been much more drowsy after her hydromorphone doses through the port compared to when she had her peripheral IV. Abdominal pain is improved since admission but still bothersome. No fever or chills. Has had some nausea but has not vomited. Drinking well but not eating much besides chicken broth. Having more joint pain over the past few days, which is not typical for her. - Review of Systems General: Reports: No Symptoms HEENT: Reports: No Symptoms Pulmonary: Reports: No Symptoms Cardiovascular: Reports: No Symptoms Gastrointestinal: Reports: Abdominal Pain, Nausea Genitourinary: Reports: No Symptoms Musculoskeletal: Reports: Joint Pain Skin: Reports: No Symptoms Neurological: Reports: No Symptoms - Patient Data Vitals - Most Recent: Last Vital Signs Temp 36.9 C 12/13/18 05:26 Pulse 71 12/13/18 05:26 Resp 14 12/13/18 05:26 BP 95/66 12/13/18 05:26 Pulse Ox 99 12/13/18 05:26 Weight - Most Recent: 39 kg I&O - Last 24 Hours: Intake & Output 12/12/18 12/13/18 12/13/18 22:59 06:59 14:59 Intake Total 1020 268 420 Output Total 400 Balance 620 268 420 Lab Results Last 24 Hours: Laboratory Results - last 24 hr 12/13/18 12/13/18 Range/Units 07:05 07:05 WBC 4.0 (4.0-10.0) x10^3/uL RBC 2.73 L (4.00-5.50) x10^6/uL Hgb 8.4 L D (12.0-16.0) g/dL Hct 26.8 L (33.0-47.0) % MCV 98.2 H D (78.0-93.0) fL MCH 30.8 (26.0-32.0) pg MCHC 31.3 L (32.0-36.0) g/dL RDW Coeff of Brianda 12.6 (10.0-15.0) % Plt Count 263 D (130-400) x10^3/uL Neut % (Auto) 47.1 L (50.0-80.0) % Lymph % (Auto) 34.8 (25.0-50.0) % [place] % (Auto) 12.6 H (2.0-11.0) % Eos % (Auto) 4.5 H (0.0-4.0) % Baso % (Auto) 1.0 (0.2-1.2) % Sodium 140 (136-145) mmol/L Potassium 3.2 L (3.5-5.1) mmol/L Chloride 107 (98-107) mmol/L Carbon Dioxide 26 (21-32) mmol/L Anion Gap 10.2 (10-20) mmol/L BUN 16 (7-18) mg/dL Creatinine 1.2 H (0.55-1.02) mg/dL Est Cr Clr Drug Dosing 36.45 mL/min Estimated GFR (MDRD) 49 Glucose 72 L (74-106) mg/dL Calcium 8.1 L (8.5-10.1) mg/dL [place]erson Results Last 24 Hours: Microbiology 12/11/18 13:05 Urine Culture - Final Urine, Clean Catch Escherichia Coli Staphylococcus Coagulase Neg 12/11/18 15:42 MRSA Surveillance Culture - Final Nares, Left NO MRSA ISOLATED Med Orders - Current: Current Medications Acetaminophen (Tylenol Extra Strength) 1,000 mg PO TID PRN PRN Reason: Pain Amitriptyline HCl (Elavil) 50 mg PO BEDTIME [facility] Last Admin: 12/12/18 20:13 Dose: 50 mg Bethanechol Chloride (Urecholine) 25 mg PO TID [facility] Last Admin: 12/13/18 07:47 Dose: 25 mg Calamine/Phenol (Calmoseptine) 0 gm TOP Q2H PRN PRN Reason: Rash Dicyclomine HCl (Bentyl) 10 mg PO QID [facility] Last Admin: 12/13/18 07:48 Dose: 10 mg Gabapentin (Neurontin) 200 mg PO TID [facility] Last Admin: 12/13/18 07:48 Dose: 200 mg Heparin Sodium (Porcine) (Heparin Lock Flush 100 Units/Ml) 500 units IVPUSH ASDIRECTED PRN PRN Reason: Keep Vein Open Last Admin: 12/13/18 07:05 Dose: 500 units Hydrocortisone (Hydrocortisone 2.5% Crm) 0 gm TOP TID PRN PRN Reason: ALYCIA AREA irritation Hydromorphone HCl (Dilaudid) 2 mg PO Q4H PRN PRN Reason: Pain Hydroxyzine HCl (Atarax) 25 mg PO Q6H PRN PRN Reason: Itching Last Admin: 12/13/18 07:47 Dose: 25 mg Lactobacillus Rhamnosus (Culturelle) 1 cap PO DAILY [facility] Last Admin: 12/13/18 07:47 Dose: 1 cap Melatonin (Melatonin) 6 mg PO BEDTIME [facility] Last Admin: 12/12/18 20:12 Dose: 6 mg Mirtazapine (Remeron) 15 mg PO BEDTIME [facility] Last Admin: 12/12/18 20:14 Dose: 15 mg Multivitamins/Minerals (Thera M Plus) 1 tab PO DAILY [facility] Last Admin: 12/13/18 07:47 Dose: 1 tab Dronabinol [Marinol] (5mg Own Med ) 0 mg PO BIDAC [facility] Last Admin: 12/13/18 07:46 Dose: 5 mg Omeprazole (Omeprazole) 20 mg PO BIDAC [facility] Last Admin: 12/13/18 06:58 Dose: 20 mg Ondansetron HCl (Zofran Odt) 4 mg PO Q6H PRN PRN Reason: Nausea/Vomiting Potassium Bicarbonate (Klor-Con Ef) 25 meq PO BID [facility] Last Admin: 12/13/18 07:47 Dose: 25 meq Prednisone (Prednisone) 40 mg PO WITHBREAKFAST [facility] Last Admin: 12/13/18 07:51 Dose: 40 mg Promethazine HCl (Phenergan) 25 mg PO Q6H PRN PRN Reason: Nausea Last Admin: 12/12/18 20:13 Dose: 25 mg Simethicone (Simethicone) 80 mg PO QID PRN PRN Reason: Gas Sodium Chloride (Saline Flush) 20 ml FLUSH ASDIRECTED PRN PRN Reason: Keep Vein Open Last Admin: 12/13/18 07:04 Dose: 20 ml Trazodone HCl (Trazodone) 50 mg PO BEDTIME [facility] Last Admin: 12/12/18 20:12 Dose: 50 mg Trimethoprim/Sulfamethoxazole (Septra Ds) 1 tab PO MOWEFR@08 [facility] Last Admin: 12/12/18 09:07 Dose: 1 tab Discontinued Medications Diphenhydramine HCl (Benadryl) 25 mg PO Q6H PRN PRN Reason: Nausea Last Admin: 12/12/18 09:07 Dose: 25 mg Hydromorphone HCl (Dilaudid) 1 mg IVPUSH ONETIME ONE Stop: 12/11/18 13:00 Last Admin: 12/11/18 13:18 Dose: 1 mg Hydromorphone HCl (Dilaudid) 2 mg IVPUSH Q2H PRN PRN Reason: Pain Last Admin: 12/13/18 05:35 Dose: 1 mg Lactated Ringer's (Ringers, Lactated) 1,000 mls @ 125 mls/hr IV ASDIRECTED [facility] Last Admin: 12/11/18 13:10 Dose: 125 mls/hr Potassium Chloride/Dextrose/Sod Cl (D5 1/2 Ns W/ 20 Meq/L Kcl) 1,000 mls @ 75 mls/hr IV ASDIRECTED [facility] Last Admin: 12/12/18 06:12 Dose: 75 mls/hr Potassium Chloride/Sodium Chloride (Normal Saline With 40 Meq Kcl) 1,000 mls @ 100 mls/hr IV ASDIRECTED [facility] Stop: 12/12/18 19:00 Last Admin: 12/12/18 09:08 Dose: 100 mls/hr Lidocaine/Prilocaine (Emla Crm) 5 gm TOP ONETIME ONE Stop: 12/12/18 18:15 Last Admin: 12/12/18 18:49 Dose: 1 applic Dronabinol [Marinol] (5mg Own Med ) 5 mg PO BIDAC [facility] Last Admin: 12/12/18 06:11 Dose: 5 mg Ondansetron HCl (Zofran) 4 mg IVPUSH ONETIME ONE Stop: 12/11/18 13:00 Last Admin: 12/11/18 13:15 Dose: 4 mg Ondansetron HCl (Zofran) 4 mg IVPUSH Q6H PRN PRN Reason: Nausea Last Admin: 12/13/18 05:31 Dose: 4 mg Ondansetron HCl (Zofran) 4 mg IVPUSH Q6H PRN PRN Reason: Nausea Prednisone (Prednisone) 40 mg PO WITHBREAKFAST [facility] Prednisone (Prednisone) 40 mg PO ONETIME ONE Stop: 12/12/18 13:33 Last Admin: 12/12/18 15:10 Dose: 40 mg Prochlorperazine Edisylate (Compazine) 10 mg IV ONETIME ONE Stop: 12/11/18 18:29 Last Admin: 12/11/18 19:25 Dose: 10 mg Sodium Chloride (Saline Flush) 10 ml FLUSH ASDIRECTED PRN PRN Reason: Keep Vein Open Last Admin: 12/12/18 12:38 Dose: 10 ml - Exam General: Alert, Cooperative, No Acute Distress HEENT: Mucous Membr. Moist/[place] Neck: Supple, Trachea Midline, No Thyromegaly. No: Lymphadenopathy Lungs: Clear to Auscultation, Normal Respiratory Effort Cardiovascular: Regular Rate, Regular Rhythm, No Murmurs GI/Abdominal Exam: Normal Bowel Sounds, Soft, No Organomegaly, No Distention, No Mass, Tender (diffuse without any rebound, rigidity, or guarding) Extremities: Non-Tender, No Pedal Edema, Normal Capillary Refill Peripheral Pulses: 2+: Radial (L), Radial (R) Skin: Warm, Dry, Intact - Problem List & Annotations (1) Dehydration SNOMED Code(s): 56243386 Code(s): E86.0 - DEHYDRATION Status: Acute Current Visit: No (2) CHARIS (acute kidney injury) SNOMED Code(s): 18419124 Code(s): N17.9 - ACUTE KIDNEY FAILURE, UNSPECIFIED Status: Acute Current Visit: No (3) Hypokalemia SNOMED Code(s): 08734561 Code(s): E87.6 - HYPOKALEMIA Status: Acute Priority: Medium Current Visit: Yes (4) Chronic abdominal pain SNOMED Code(s): 670567268 Code(s): R10.9 - UNSPECIFIED ABDOMINAL PAIN; G89.29 - OTHER CHRONIC PAIN Status: Chronic Priority: Medium Current Visit: No (5) Crohns disease SNOMED Code(s): 35300635 Code(s): K50.90 - CROHN'S DISEASE, UNSPECIFIED, WITHOUT COMPLICATIONS Status: Chronic Current Visit: No Qualifiers: Gastrointestinal tract location: unspecified location Digestive disease complication type: unspecified complication Qualified Code(s): K50.919 - Crohn 's disease, unspecified, with unspecified complications (6) On tube feeding diet SNOMED Code(s): 45280223 Code(s): Z78.9 - OTHER SPECIFIED HEALTH STATUS Status: Chronic Current Visit: No (7) Severe malnutrition SNOMED Code(s): 25084157 Code(s): E43 - UNSPECIFIED SEVERE PROTEIN-CALORIE MALNUTRITION Status: Chronic Current Visit: No (8) Nausea & vomiting SNOMED Code(s): 88803132 Code(s): R11.2 - NAUSEA WITH VOMITING, UNSPECIFIED Status: Chronic Priority: Medium Current Visit: No Qualifiers: Vomiting type: unspecified Vomiting Intractability: non-intractable Qualified Code(s): R11.2 - Nausea with vomiting, unspecified (9) Joint pain SNOMED Code(s): 45160661 Code(s): M25.50 - PAIN IN UNSPECIFIED JOINT Status: Acute Current Visit: Yes - Problem List Review Problem List Initiated/Reviewed/Updated: Yes - My Orders Last 24 Hours: My Active Orders 12/12/18 10:00 Potassium Bicarbonate [Klor-Con EF] 25 meq PO BID 12/12/18 14:52 hydrOXYzine HCl [Atarax] 25 mg PO Q6H PRN 12/12/18 18:18 Implanted Port Access [RC] PRN 12/12/18 18:19 Heparin Sodium [Heparin Lock Flush 100 Units/ML] 500 units IVPUSH ASDIRECTED PRN 12/12/18 18:21 Sodium Chloride 0.9% [Saline Flush] 20 ml FLUSH ASDIRECTED PRN 12/13/18 08:00 predniSONE 40 mg PO WITHBREAKFAST 12/13/18 08:33 HYDROmorphone [Dilaudid] 2 mg PO Q4H PRN Ondansetron [Zofran ODT] 4 mg PO Q6H PRN 12/13/18 Lunch Tube Feeding Adult Diet [DIET] 12/14/18 05:11 BASIC METABOLIC PANEL,BMP [CHEM] Routine CBC WITH AUTO DIFF [HEME] Routine - Assessment Assessment:: 43 yo female admitted with a flare of abdominal pain and nausea resulting in decreased intake leading to CHARIS and dehydration. Labs significantly improved today; patient's symptoms gradually improving. - Plan Plan:: #1 Dehydration #2 Acute Kidney Injury #3 Hypokalemia - Labs back to baseline today. - Continue PO potassium supplementation. - No further IV fluids today. She can drink ad keon. - Recheck labs in the am. #4 Chronic Abdominal Pain #5 Crohn's disease #6 On tube feeding diets #7 Severe Malnutrition #8 Nausea and vomiting - Will transition her over to PO medications today and see how she does. Will also monitor for improvement in itching with this change as well. - Resume tube feedings this am at 10 cc/hr. Will titrate up as able. - She is working closely with GI for management of her Crohn's as she awaits a consult at the [facility] later this month. - Continue home medications. #9 Joint Pain - Likely related to above. - Will see how this improves when she has had a couple days of prednisone. Patient will remain on acute today - anticipate dismissal tomorrow or the following day. She will be transitioned to PO medications today. Code status is full. Patient will ambulate for VTE prophylaxis.
[2018-12-13] MEDS: HYDROmorphone 2 MG Tab PO PRN ×2 (11:37→17:16)
[2018-12-13] MEDS ORDERED: Polyethylene Glycol 3350 Powder 17 GM Packet PO ONE (18:23)
[2018-12-13] MEDS ORDERED: Bisacodyl 5 MG Tab PO ONE (18:23)
--- NOTE | 2018-12-13 18:25 | PCM.SN ---
- Free Text/Narrative Note: Contacted by nursing that patient's NG tube came out this pm. She states she started vomiting and the tube came partially out; she removed it the rest of the way. Called and spoke to hospitalist via [employer] to arrange transfer to [place] to have her GJ tube replaced. He did not feel this was necessary and recommended getting this done as an outpatient tomorrow. Discussed concerns for weather tomorrow but transfer still denied. Spoke with IR who felt it would be fine to wait 1-2 days to get the tube replaced as long as something was in place holding the tract. He recommended placing a medrano into the stomach to hold the tract. Discussed with patient and she was in agreement. Area cleansed with Chloraprep. 12 malay medrano inserted into the stomach without any issues and return of stomach acid was noted. Balloon inflated with 5 cc of saline. Medrano plugged and taped. Patient tolerated this well. Patient also with significant stool in the colon on initial CT. Will do a dose of miralax and docusate to see if we can get her having more consistent bowel movements, which should also help with her pain and nausea. She states she has had to do this before. Will recheck labs in the morning to see if she will need some fluids prior to traveling to [place] for IR visit for GJ replacement.
[2018-12-13] MEDS ORDERED: Sodium Chloride 0.9% with KCl 1,000 ML IV SCH (19:00)
[2018-12-13] MEDS: traZODone 50 MG Tab PO SCH (20:14)
[2018-12-13] MEDS: Amitriptyline 25 MG Tab PO SCH (20:14)
[2018-12-13] MEDS: Melatonin 3 MG Tab PO SCH (20:15)
[2018-12-13] MEDS: Mirtazapine 15 MG Tab PO SCH (20:15)
[2018-12-14] MEDS ORDERED: Sodium Chloride 0.9% 500 ML IV ONE (02:46)
[2018-12-14] MEDS: Omeprazole 20 MG Cap.CR PO SCH (06:26)
[2018-12-14] MEDS: DRONABINOL 5 MG PO SCH (06:26)
[2018-12-14 07:40] LABS: ANION GAP 9.6 mmol/L (10-20)
--- NOTE | 2018-12-14 09:11 | PCM.DCSUM1 ---
Discharge Summary - Hospital Course Brief History: Mrs. Cota is a 43 yo female who was admitted for dehydration and CHARIS secondary to increased abdominal pain and vomiting related to her underlying Crohn's and intolerance to tube feeds. - Discharge Data Discharge Date: 12/14/18 Discharge Disposition: DC/Tfer to Acute Hospital 02 Condition: Good - Discharge Diagnosis/Problem(s) (1) Dehydration SNOMED Code(s): 64840225 ICD Code: E86.0 - DEHYDRATION Status: Acute Current Visit: No (2) CHARIS (acute kidney injury) SNOMED Code(s): 37546322 ICD Code: N17.9 - ACUTE KIDNEY FAILURE, UNSPECIFIED Status: Acute Current Visit: No (3) Hypokalemia SNOMED Code(s): 65788116 ICD Code: E87.6 - HYPOKALEMIA Status: Acute Priority: Medium Current Visit: Yes (4) Chronic abdominal pain SNOMED Code(s): 787238065 ICD Code: R10.9 - UNSPECIFIED ABDOMINAL PAIN; G89.29 - OTHER CHRONIC PAIN Status: Chronic Priority: Medium Current Visit: No (5) Crohns disease SNOMED Code(s): 63054348 ICD Code: K50.90 - CROHN'S DISEASE, UNSPECIFIED, WITHOUT COMPLICATIONS Status: Chronic Current Visit: No Qualifiers: Gastrointestinal tract location: unspecified location Digestive disease complication type: unspecified complication Qualified Code(s): K50.919 - Crohn 's disease, unspecified, with unspecified complications (6) On tube feeding diet SNOMED Code(s): 91479915 ICD Code: Z78.9 - OTHER SPECIFIED HEALTH STATUS Status: Chronic Current Visit: No (7) Severe malnutrition SNOMED Code(s): 94249898 ICD Code: E43 - UNSPECIFIED SEVERE PROTEIN-CALORIE MALNUTRITION Status: Chronic Current Visit: No (8) Nausea & vomiting SNOMED Code(s): 25149393 ICD Code: R11.2 - NAUSEA WITH VOMITING, UNSPECIFIED Status: Chronic Priority: Medium Current Visit: No Qualifiers: Vomiting type: unspecified Vomiting Intractability: non-intractable Qualified Code(s): R11.2 - Nausea with vomiting, unspecified (9) Joint pain SNOMED Code(s): 28211441 ICD Code: M25.50 - PAIN IN UNSPECIFIED JOINT Status: Acute Current Visit : Yes - Patient Summary/Data Operative Procedure(s) Performed: none Complications: none Consults: none Labs Pending at D/C: none Recommended Follow-up Testing/Procedures: none Planned Operative Procedure(s) after DC: none Hospital Course: Patient was given IV fluids and IV pain and nausea medications. Her labs improved but she continued to struggle with abdominal pain and nausea. On 12/13, her GJ tube was pulled out by the patient after she states it started coming out on its own while she was vomiting. It was attempted to transfer the patient to [place] but that was not able to be achieved. After discussion with IR, a medrano catheter was placed to hold the tract. On 12/14, her blood pressures were noted to be decreased but she also appeared fluid overloaded. She also continues with significant abdominal pain. It is noted that on her initial CT scan, she did have a large stool burden. She was given miralax and docusate without any appreciable bowel movement. She is also much more drowsy than usual today as well. Given need for a procedure that cannot be done in [place] as well as the fact that she has not improved over the course of this hospitalization, transfer to [place] was again recommended. Via [employer], hospitalist did accept patient for transfer. She will be transferred as soon as a bed is available and EMS is able to transport. - Discharge Plan *PRESCRIPTION DRUG MONITORING PROGRAM REVIEWED*: No *COPY OF PRESCRIPTION DRUG MONITORING REPORT IN PATIENT CHELSEY: No Home Medications: Home Meds Dicyclomine [Bentyl] 10 mg PO QID 05/03/18 [History] Ondansetron HCl [Ondansetron] 8 mg PO TID PRN 05/03/18 [History] Ranitidine HCl [Ranitidine] 150 mg PO BEDTIME 05/03/18 [History] Vit Calc,Iron,Folic [ Vitamins] 1 tab PO DAILY 05/23/18 [ History] Bethanechol [Urecholine] 25 mg PO TID 09/01/18 [History] Lactobacillus Rhamnosus GG [Culturelle] 1 cap PO DAILY 09/01/18 [History] Acetaminophen [Tylenol Extra Strength] 1,000 mg PO TID PRN 11/23/18 [History] Amitriptyline [Elavil] 50 mg PO BEDTIME 11/23/18 [History] Cod Liver Oil/Zinc Oxide [Desitin Diaper Rash 40% Paste] 1 appful TOP Q2H PRN [History] Dronabinol [Marinol] 5 mg PO BIDAC 11/23/18 [History] Gabapentin [Neurontin] 200 mg PO TID 11/23/18 [History] HYDROmorphone [Dilaudid] 2 mg PO Q4H PRN 11/23/18 [History] Hydrocortisone [Anusol-HC] 1 appful RC TID PRN 11/23/18 [History] Melatonin 6 mg PO BEDTIME 11/23/18 [History] Metoclopramide [Reglan] 5 mg PO QID 11/23/18 [History] Mirtazapine [Remeron] 15 mg PO BEDTIME 11/23/18 [History] Omeprazole Magnesium [Prilosec Otc] 40 mg PO BIDAC 11/23/18 [History] Promethazine [Phenergan] 25 mg PO Q6H PRN 11/23/18 [History] Simethicone 80 mg PO QID PRN 11/23/18 [History] Sulfamethoxazole/Trimethoprim [Bactrim Ds Tablet] 1 tab PO MOWEFR@08 11/23/18 [ History] traZODone HCl [Trazodone HCl] 50 mg PO BEDTIME 11/23/18 [History] Ondansetron [Zofran] 4 mg IVPUSH Q6H PRN vial 12/04/18 [Rx] diphenhydrAMINE [Benadryl] 25 mg PO Q6H PRN cap 12/04/18 [Rx] Forms: ED Department Discharge Referrals: Xiomy Oliva MD [Primary Care Provider] - - Discharge Summary/Plan Comment DC Time >30 min.: Yes - General Info Date of Service: 12/14/18 Subjective Update: Patient does not feel any better this am. She still is having significant abdominal pain. She is also quite tired today despite sleeping well overnight. She feels fluid overloaded and is swollen in her hands and face. No fever or chills. She did not have any appreciable bowel movement with the interventions yesterday. - Review of Systems General: Reports: No Symptoms HEENT: Reports: No Symptoms Pulmonary: Reports: No Symptoms Cardiovascular: Reports: No Symptoms Gastrointestinal: Reports: Abdominal Pain, Nausea Genitourinary: Reports: No Symptoms Musculoskeletal: Reports: No Symptoms Skin: Reports: No Symptoms Neurological: Reports: No Symptoms - Patient Data Vitals - Most Recent: Last Vital Signs Temp 36.4 C 12/14/18 05:52 Pulse 69 12/14/18 05:52 Resp 16 12/14/18 05:52 BP 84/42 L 12/14/18 08:19 Pulse Ox 94 L 12/14/18 05:52 Weight - Most Recent: 39 kg I&O - Last 24 hours: Intake & Output 12/13/18 12/14/18 12/14/18 22:59 06:59 14:59 Intake Total 600 650 Output Total 600 Balance 600 50 Lab Results - Last 24 hrs: Laboratory Results - last 24 hr 12/14/18 12/14/18 Range/Units 07:02 07:02 WBC 4.1 (4.0-10.0) x10^3/uL RBC 2.68 L (4.00-5.50) x10^6/uL Hgb 8.2 L (12.0-16.0) g/dL Hct 26.5 L (33.0-47.0) % MCV 98.9 H (78.0-93.0) fL MCH 30.6 (26.0-32.0) pg MCHC 30.9 L (32.0-36.0) g/dL RDW Coeff of Brianda 12.7 (10.0-15.0) % Plt Count 240 (130-400) x10^3/uL Neut % (Auto) 54.3 (50.0-80.0) % Lymph % (Auto) 32.8 (25.0-50.0) % [place] % (Auto) 8.3 (2.0-11.0) % Eos % (Auto) 3.6 (0.0-4.0) % Baso % (Auto) 1.0 (0.2-1.2) % Sodium 146 H (136-145) mmol/L Potassium 3.6 (3.5-5.1) mmol/L Chloride 115 H (98-107) mmol/L Carbon Dioxide 25 (21-32) mmol/L Anion Gap 9.6 L (10-20) mmol/L BUN 10 (7-18) mg/dL Creatinine 1.2 H (0.55-1.02) mg/dL Est Cr Clr Drug Dosing 36.45 mL/min Estimated GFR (MDRD) 49 Glucose 82 (74-106) mg/dL Calcium 8.2 L (8.5-10.1) mg/dL ALFREDO Results - Last 24 hrs: Microbiology 12/11/18 13:05 Urine Culture - Final Urine, Clean Catch Escherichia Coli Staphylococcus Coagulase Neg Med Orders - Current: Current Medications Acetaminophen (Tylenol Extra Strength) 1,000 mg PO TID PRN PRN Reason: Pain Last Admin: 12/13/18 11:41 Dose: 1,000 mg Amitriptyline HCl (Elavil) 50 mg PO BEDTIME [facility] Last Admin: 12/13/18 20:14 Dose: 50 mg Bethanechol Chloride (Urecholine) 25 mg PO TID [facility] Last Admin: 12/13/18 20:14 Dose: 25 mg Calamine/Phenol (Calmoseptine) 0 gm TOP Q2H PRN PRN Reason: Rash Dicyclomine HCl (Bentyl) 10 mg PO QID [facility] Last Admin: 12/13/18 20:15 Dose: 10 mg Gabapentin (Neurontin) 200 mg PO TID [facility] Last Admin: 12/13/18 20:15 Dose: 200 mg Heparin Sodium (Porcine) (Heparin Lock Flush 100 Units/Ml) 500 units IVPUSH ASDIRECTED PRN PRN Reason: Keep Vein Open Last Admin: 12/13/18 07:05 Dose: 500 units Hydrocortisone (Hydrocortisone 2.5% Crm) 0 gm TOP TID PRN PRN Reason: ALYCIA AREA irritation Hydromorphone HCl (Dilaudid) 2 mg PO Q4H PRN PRN Reason: Pain Last Admin: 12/13/18 17:16 Dose: 2 mg Lactobacillus Rhamnosus (Culturelle) 1 cap PO DAILY [facility] Last Admin: 12/13/18 07:47 Dose: 1 cap Melatonin (Melatonin) 6 mg PO BEDTIME [facility] Last Admin: 12/13/18 20:15 Dose: 6 mg Mirtazapine (Remeron) 15 mg PO BEDTIME [facility] Last Admin: 12/13/18 20:15 Dose: 15 mg Multivitamins/Minerals (Thera M Plus) 1 tab PO DAILY [facility] Last Admin: 12/13/18 07:47 Dose: 1 tab Dronabinol [Marinol] (5mg Own Med ) 0 mg PO BIDAC [facility] Last Admin: 12/14/18 06:26 Dose: 5 mg Omeprazole (Omeprazole) 20 mg PO BIDAC [facility] Last Admin: 12/14/18 06:26 Dose: 20 mg Ondansetron HCl (Zofran Odt) 4 mg PO Q6H PRN PRN Reason: Nausea/Vomiting Last Admin: 12/13/18 17:16 Dose: 4 mg Potassium Bicarbonate (Klor-Con Ef) 25 meq PO BID [facility] Last Admin: 12/13/18 20:15 Dose: 25 meq Prednisone (Prednisone) 40 mg PO WITHBREAKFAST [facility] Last Admin: 12/13/18 07:51 Dose: 40 mg Promethazine HCl (Phenergan) 25 mg PO Q6H PRN PRN Reason: Nausea Last Admin: 12/12/18 20:13 Dose: 25 mg Simethicone (Simethicone) 80 mg PO QID PRN PRN Reason: Gas Sodium Chloride (Saline Flush) 20 ml FLUSH ASDIRECTED PRN PRN Reason: Keep Vein Open Last Admin: 12/13/18 07:04 Dose: 20 ml Trazodone HCl (Trazodone) 50 mg PO BEDTIME [facility] Last Admin: 12/13/18 20:14 Dose: 50 mg Trimethoprim/Sulfamethoxazole (Septra Ds) 1 tab PO MOWEFR@08 [facility] Last Admin: 12/12/18 09:07 Dose: 1 tab Discontinued Medications Bisacodyl (Dulcolax) 5 mg PO ONETIME ONE Stop: 12/13/18 18:24 Last Admin: 12/13/18 20:14 Dose: 5 mg Diphenhydramine HCl (Benadryl) 25 mg PO Q6H PRN PRN Reason: Nausea Last Admin: 12/12/18 09:07 Dose: 25 mg Hydromorphone HCl (Dilaudid) 1 mg IVPUSH ONETIME ONE Stop: 12/11/18 13:00 Last Admin: 12/11/18 13:18 Dose: 1 mg Hydromorphone HCl (Dilaudid) 2 mg IVPUSH Q2H PRN PRN Reason: Pain Last Admin: 12/13/18 05:35 Dose: 1 mg Hydroxyzine HCl (Atarax) 25 mg PO Q6H PRN PRN Reason: Itching Last Admin: 12/13/18 14:20 Dose: 25 mg Lactated Ringer's (Ringers, Lactated) 1,000 mls @ 125 mls/hr IV ASDIRECTED [facility] Last Admin: 12/11/18 13:10 Dose: 125 mls/hr Potassium Chloride/Dextrose/Sod Cl (D5 1/2 Ns W/ 20 Meq/L Kcl) 1,000 mls @ 75 mls/hr IV ASDIRECTED [facility] Last Admin: 12/12/18 06:12 Dose: 75 mls/hr Potassium Chloride/Sodium Chloride (Normal Saline With 40 Meq Kcl) 1,000 mls @ 100 mls/hr IV ASDIRECTED [facility] Stop: 12/12/18 19:00 Last Admin: 12/12/18 09:08 Dose: 100 mls/hr Potassium Chloride/Sodium Chloride (Normal Saline With 40 Meq Kcl) 1,000 mls @ 100 mls/hr IV ASDIRECTED [facility] Stop: 12/14/18 05:01 Last Admin: 12/13/18 22:28 Dose: 100 mls/hr Sodium Chloride (Normal Saline) 500 mls @ 500 mls/hr IV ONETIME ONE Stop: 12/14/18 03:45 Last Admin: 12/14/18 03:37 Dose: 500 mls/hr Lidocaine/Prilocaine (Emla Crm) 5 gm TOP ONETIME ONE Stop: 12/12/18 18:15 Last Admin: 12/12/18 18:49 Dose: 1 applic Dronabinol [Marinol] (5mg Own Med ) 5 mg PO BIDAC [facility] Last Admin: 12/12/18 06:11 Dose: 5 mg Ondansetron HCl (Zofran) 4 mg IVPUSH ONETIME ONE Stop: 12/11/18 13:00 Last Admin: 12/11/18 13:15 Dose: 4 mg Ondansetron HCl (Zofran) 4 mg IVPUSH Q6H PRN PRN Reason: Nausea Last Admin: 12/13/18 05:31 Dose: 4 mg Ondansetron HCl (Zofran) 4 mg IVPUSH Q6H PRN PRN Reason: Nausea Polyethylene Glycol (Miralax) 17 gm PO ONETIME ONE Stop: 12/13/18 18:24 Last Admin: 12/13/18 20:14 Dose: 17 gm Prednisone (Prednisone) 40 mg PO WITHBREAKFAST [facility] Prednisone (Prednisone) 40 mg PO ONETIME ONE Stop: 12/12/18 13:33 Last Admin: 12/12/18 15:10 Dose: 40 mg Prochlorperazine Edisylate (Compazine) 10 mg IV ONETIME ONE Stop: 12/11/18 18:29 Last Admin: 12/11/18 19:25 Dose: 10 mg Sodium Chloride (Saline Flush) 10 ml FLUSH ASDIRECTED PRN PRN Reason: Keep Vein Open Last Admin: 12/12/18 12:38 Dose: 10 ml - Exam General: Reports: Cooperative, No Acute Distress, Sedated (but awakens to voice) HEENT: Reports: Pupils Equal, Pupils Reactive, Mucous Membr. Moist/[place] Neck: Reports: Supple, Trachea Midline, No Thyromegaly. Denies: Lymphadenopathy Lungs: Reports: Clear to Auscultation, Normal Respiratory Effort Cardiovascular: Reports: Regular Rate, Regular Rhythm, No Murmurs GI/Abdominal Exam: Normal Bowel Sounds, Soft, Non-Tender, No Organomegaly, No Distention, No Mass Extremities: Non-Tender, No Pedal Edema, Normal Capillary Refill Skin: Reports: Warm, Dry, Intact Neurological: Reports: No New Focal Deficit
== END 2018-12-14 12:00 | disposition short-term general hospital (02) | DRG 245 ==
LOC: VM.ED 12:37 → VM.MS 15:06
PROVIDERS: ADMIT Family Medicine; ATTEND Family Medicine
DX: K50.919 Crohn's disease, unspecified, with unspecified complications (principal); E43 Unspecified severe protein-calorie malnutrition; N17.9 Acute kidney failure, unspecified; E87.1 Hypo-osmolality and hyponatremia; E86.0 Dehydration; E87.6 Hypokalemia; G89.29 Other chronic pain; M25.50 Pain in unspecified joint; M54.9 Dorsalgia, unspecified; Z68.1 Body mass index [BMI] 19.9 or less, adult; D64.9 Anemia, unspecified; N18.3 Chronic kidney disease, stage 3 (moderate); Z93.1 Gastrostomy status; Z88.5 Allergy status to narcotic agent; Z88.0 Allergy status to penicillin; Z88.8 Allergy status to other drugs, medicaments and biological substances; Z91.011 Allergy to milk products; Z90.49 Acquired absence of other specified parts of digestive tract
CPT/HCPCS: 36415; 74019; 74176; 80048; 80053; 81001; 83735; 85025; 85652; 86140; 87086; 87088; 87186; 96361; 96374; 96375; 99285; A9270-GY; J0780; J1170; J1642; J2405; J3480; J7040; J7120

== ENCOUNTER 2019-01-21 15:56 | Emergency (ER) | payer BC, OTHER ==
[2019-01-21] MEDS ORDERED: HYDROmorphone 1 MG/ML Syringe IVPUSH ONE (16:10)
[2019-01-21] MEDS ORDERED: diphenhydrAMINE 50 MG/ML SDV IVPUSH ONE (16:10)
[2019-01-21] MEDS ORDERED: Prochlorperazine 10 MG/2 ML SDV IV ONE (16:10)
--- NOTE | 2019-01-21 16:15 | EDM.PDOC ---
ED HPI GENERAL MEDICAL PROBLEM - General Stated Complaint: ER VISIT Time Seen by Provider: 01/21/19 15:56 Source of Information: Reports: Patient - History of Present Illness INITIAL COMMENTS - FREE TEXT/NARRATIVE: Patient comes into the emergency department with abdominal pain. Patient states that she chronically has abdominal pain for she has Crohn's, diverticulitis, and irritable bowel. She has been coming in to medicare coordinator twice a week to receive fluids as well. She was in this morning for her fluids and states she wasn't feeling great but wanted to go home and lay down and see if she started feeling better. She states that the discomfort started around 2 AM with increased nausea and has been unable to keep her nausea medications down since then. He pain is characterized as sharp shoot generalized. Her normal medication regiment when she has come in has been Compazine, Benadryl, and Dilaudid. She would like to try this combination in hopes of not needing to be admitted. Onset: Today, Gradual Right Lower Abdomen Pain Score (Numeric/FACES): 9 - Related Data Allergies Allergy/AdvReac Type Severity Reaction Status Date / Time codeine Allergy Severe Anaphylactic Verified 01/21/19 16:42 Shock Penicillins Allergy Severe Anaphylactic Verified 01/21/19 16:42 Shock propoxyphene Allergy Severe Anaphylactic Verified 01/21/19 16:42 [From Darvocet-N] Shock lactose AdvReac Diarrhea Verified 01/21/19 16:42 metoclopramide [From Reglan] AdvReac Stomach Verified 01/21/19 16:42 Ache morphine AdvReac Headache Verified 01/21/19 16:42 Home Meds: Home Meds Dicyclomine [Bentyl] 10 mg PO QID 05/03/18 [History] Ondansetron HCl [Ondansetron] 8 mg PO TID PRN 05/03/18 [History] Ranitidine HCl [Ranitidine] 150 mg PO BEDTIME 05/03/18 [History] Vit Calc,Iron,Folic [ Vitamins] 1 tab PO DAILY 05/23/18 [ History] Bethanechol [Urecholine] 25 mg PO TID 09/01/18 [History] Lactobacillus Rhamnosus GG [Culturelle] 1 cap PO DAILY 09/01/18 [History] Acetaminophen [Tylenol Extra Strength] 1,000 mg PO TID PRN 11/23/18 [History] Amitriptyline [Elavil] 50 mg PO BEDTIME 11/23/18 [History] Cod Liver Oil/Zinc Oxide [Desitin Diaper Rash 40% Paste] 1 appful TOP Q2H PRN [History] Dronabinol [Marinol] 5 mg PO BIDAC 11/23/18 [History] Gabapentin [Neurontin] 200 mg PO TID 11/23/18 [History] HYDROmorphone [Dilaudid] 2 mg PO Q4H PRN 11/23/18 [History] Hydrocortisone [Anusol-HC] 1 appful RC TID PRN 11/23/18 [History] Melatonin 6 mg PO BEDTIME 11/23/18 [History] Metoclopramide [Reglan] 5 mg PO QID 11/23/18 [History] Mirtazapine [Remeron] 15 mg PO BEDTIME 11/23/18 [History] Omeprazole Magnesium [Prilosec Otc] 40 mg PO BIDAC 11/23/18 [History] Promethazine [Phenergan] 25 mg PO Q6H PRN 11/23/18 [History] Simethicone 80 mg PO QID PRN 11/23/18 [History] Sulfamethoxazole/Trimethoprim [Bactrim Ds Tablet] 1 tab PO MOWEFR@08 11/23/18 [ History] traZODone HCl [Trazodone HCl] 50 mg PO BEDTIME 11/23/18 [History] Ondansetron [Zofran] 4 mg IVPUSH Q6H PRN vial 12/04/18 [Rx] diphenhydrAMINE [Benadryl] 25 mg PO Q6H PRN cap 12/04/18 [Rx] Past Medical History HEENT History: Reports: None Cardiovascular History: Reports: None Respiratory History: Reports: None Gastrointestinal History: Reports: Inflammatory Bowel Disease Other Gastrointestinal History: crohn's disease. colotis Genitourinary History: Reports: Acute Renal Failure, Chronic Renal Insuffiency HEALTH COMPANION History: Reports: None Musculoskeletal History: Reports: Back Pain, Chronic Neurological History: Reports: None Psychiatric History: Reports: None Endocrine/Metabolic History: Reports: None Hematologic History: Reports: Anemia Immunologic History: Reports: None Oncologic (Cancer) History: Reports: None Dermatologic History: Reports: None - Infectious Disease History Infectious Disease History: Reports: C-Difficile, Chicken Pox - Past Surgical History GI Surgical History: Reports: Appendectomy, Cholecystectomy, Other (See Below) Other GI Surgeries/Procedures: partial sigmoidectomy Social & Family History - Family History Family Medical History: Noncontributory Neurological: Reports: Parkinson's Oncologic: Reports: Brain, Liver - Caffeine Use Caffeine Use: Reports: None - Living Situation & Occupation Living situation: Reports: , with Significant Other (from [place] but staying with her daughter in [place]) 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 GENERAL - Review of Systems Review Of Systems: See Below Constitutional: Reports: Malaise, Decreased Appetite HEENT: Reports: No Symptoms Respiratory: Reports: No Symptoms Cardiovascular: Reports: No Symptoms Endocrine: Reports: No Symptoms GI/Abdominal: Reports: Abdominal Pain, Anorexia, Diarrhea, Nausea : Reports: No Symptoms Musculoskeletal: Reports: No Symptoms Skin: Reports: No Symptoms Neurological: Reports: No Symptoms Psychiatric: Reports: No Symptoms Hematologic/Lymphatic: Reports: No Symptoms Immunologic: Reports: No Symptoms ED EXAM, GENERAL - Physical Exam Exam: See Below Exam Limited By: No Limitations General Appearance: Alert, WD/WN, No Apparent Distress Head: Atraumatic, Normocephalic Neck: Normal Inspection, Supple, Non-Tender, Full Range of Motion Respiratory/Chest: No Respiratory Distress, Lungs Clear, No Accessory Muscle Use Cardiovascular: Normal Peripheral Pulses, Regular Rate, Rhythm GI/Abdominal: Normal Bowel Sounds, Soft, Guarding, Tender, Abnormal Bowel Sounds (hyperactive). No: Distended, Hernia Back Exam: Normal Inspection, Full Range of Motion Extremities: Normal Inspection, Normal Range of Motion, Non-Tender, No Pedal Edema Neurological: Alert, Oriented Psychiatric: Normal Affect, Normal Mood Skin Exam: Warm, Dry, Intact, Normal Color Course - Vital Signs Last Recorded V/S: Last Vital Signs Temp 37.4 C 01/21/19 16:05 Pulse 87 01/21/19 16:05 Resp 16 01/21/19 16:05 BP 129/70 01/21/19 16:05 Pulse Ox 100 01/21/19 16:05 - Orders/Labs/Meds Orders: Active Orders 24 hr Category Date Time Status Cardiac Monitoring [RC] . DIRECTED Care 01/21/19 17:04 Active EKG Documentation Completion [RC] STAT Care 01/21/19 17:00 Active Implanted Port Access [RC] CONTINUOUS Care 01/21/19 16:10 Active MAGNESIUM [CHEM] Stat Lab 01/21/19 17:00 Ordered Heparin Sodium [Heparin Lock Flush 100 Units/ML] Med 01/21/19 18:27 Ordered 500 units IVPUSH ASDIRECTED PRN Sodium Chloride 0.9% [Normal Saline] 1,000 ml Med 01/21/19 17:00 Active IV ASDIRECTED Medication Orders Sodium Chloride (Normal Saline) 1,000 mls @ 1,000 mls/hr IV ASDIRECTED MARY Last Admin: 01/21/19 17:15 Dose: 1,000 mls/hr Labs: Laboratory Tests 01/21/19 01/21/19 Range/Units 16:23 16:23 WBC 12.7 H (4.0-10.0) x10^3/uL RBC 4.07 (4.00-5.50) x10^6/uL Hgb 12.3 D (12.0-16.0) g/dL Hct 35.6 (33.0-47.0) % MCV 87.5 D (78.0-93.0) fL MCH 30.2 (26.0-32.0) pg MCHC 34.6 (32.0-36.0) g/dL RDW Coeff of Brianda 13.0 (10.0-15.0) % Plt Count 541 H D (130-400) x10^3/uL Neut % (Auto) 81.4 H (50.0-80.0) % Lymph % (Auto) 10.8 L (25.0-50.0) % [place] % (Auto) 6.8 (2.0-11.0) % Eos % (Auto) 0.7 (0.0-4.0) % Baso % (Auto) 0.3 (0.2-1.2) % Sodium 133 L D (136-145) mmol/L Potassium 2.3 L* (3.5-5.1) mmol/L Chloride 93 L D (98-107) mmol/L Carbon Dioxide 25 (21-32) mmol/L Anion Gap 17.3 (10-20) mmol/L BUN 25 H (7-18) mg/dL Creatinine 1.8 H (0.55-1.02) mg/dL Est Cr Clr Drug Dosing TNP Estimated GFR (MDRD) 30 Glucose 93 (74-106) mg/dL Calcium 9.0 (8.5-10.1) mg/dL Corrected Calcium 9.56 (8.5-10.1) mg/dL Total Bilirubin 0.3 (0.2-1.0) mg/dL AST 15 (15-37) U/L ALT 19 (14-59) U/L Alkaline Phosphatase 108 (46-116) U/L Total Protein 7.0 (6.4-8.2) g/dL Albumin 3.3 L (3.4-5.0) g/dL Globulin 3.7 Albumin/Globulin Ratio 0.89 Meds: Medications Generic Name Dose Route Start Last Admin Trade Name Freq PRN Reason Stop Dose Admin Sodium Chloride 1,000 mls @ 1,000 mls/hr 01/21/19 17:00 01/21/19 17:15 Normal Saline IV 1,000 mls/hr ASDIRECTED MARY Administration Discontinued Medications Generic Name Dose Route Start Last Admin Trade Name Freq PRN Reason Stop Dose Admin Diphenhydramine HCl 50 mg 01/21/19 16:10 01/21/19 16:22 Benadryl IVPUSH 01/21/19 16:11 50 mg ONETIME ONE Administration Hydromorphone HCl 0.5 mg 01/21/19 16:10 01/21/19 16:20 Dilaudid IVPUSH 01/21/19 16:11 0.5 mg ONETIME ONE Administration Potassium Chloride 10 meq/ 50 mls @ 50 mls/hr 01/21/19 17:01 01/21/19 17:15 Premix IV 01/21/19 18:00 50 mls/hr ONETIME ONE Administration Prochlorperazine Edisylate 10 mg 01/21/19 16:10 01/21/19 16:25 Compazine IV 01/21/19 16:11 10 mg ONETIME ONE Administration - Re-Assessments/Exams Free Text/Narrative Re-Assessment/Exam: 01/21/19 18:29 Pt is feeling better and is pain free. She would like to go home and rest and is aware of what low potassium can cause. Pt is aware and will return if need be. Departure - Departure Time of Disposition: 18:45 Disposition: Home, Self-Care 01 Clinical Impression: Abdominal pain Qualifiers: Abdominal location: generalized Qualified Code(s): R10.84 - Generalized abdominal pain - Discharge Information *PRESCRIPTION DRUG MONITORING PROGRAM REVIEWED*: Not Applicable *COPY OF PRESCRIPTION DRUG MONITORING REPORT IN PATIENT CHELSEY: Not Applicable Instructions: Abdominal Pain, Adult, [id number] Referrals: Xiomy Oliva MD [Primary Care Provider] - Additional Instructions: 1. rest 2. increase your water intake when able 3. Continue to take at home medications to help with the discomfort and nausea 4. Keep you follow up appointment with your PCP on Wednesday 5. Activity and diet as tolerated 6. Call with any questions or concerns - My Orders Last 24 Hours: My Active Orders 01/21/19 16:10 Implanted Port Access [RC] CONTINUOUS 01/21/19 17:00 EKG Documentation Completion [RC] STAT MAGNESIUM [CHEM] Stat Sodium Chloride 0.9% [Normal Saline] 1,000 ml IV ASDIRECTED 01/21/19 17:04 Cardiac Monitoring [RC] . DIRECTED 01/21/19 18:27 Heparin Sodium [Heparin Lock Flush 100 Units/ML] 500 units IVPUSH ASDIRECTED PRN - Assessment/Plan Last 24 Hours: My Active Orders 01/21/19 16:10 Implanted Port Access [RC] CONTINUOUS 01/21/19 17:00 EKG Documentation Completion [RC] STAT MAGNESIUM [CHEM] Stat Sodium Chloride 0.9% [Normal Saline] 1,000 ml IV ASDIRECTED 01/21/19 17:04 Cardiac Monitoring [RC] . DIRECTED 01/21/19 18:27 Heparin Sodium [Heparin Lock Flush 100 Units/ML] 500 units IVPUSH ASDIRECTED PRN Assessment:: 1. chronic abdominal pain Plan: 1. Labs completed in ER. 2. Compazine, Benadryl and Dilaudid to help with the discomfort 3. Pt is encouraged to keep her appointment with the PCP next week to discuss further options and recommendations for senior care management 4. Labs revealed hypokalemia which is a chronic finding. Pt is also on oral medication to help. We will give her a 1000ml fluid and a 10meq KCL. Pt is not wanting to be admitted and is aware of the complications that can result from low potassium levels. 5. EKG completed in ER. 6. Education regarding activity, diet, and follow up provided. 7. All questions and concerns addressed prior to discharge
[2019-01-21 16:48] LABS: CHLORIDE,CL 93 mmol/L (98-107); SODIUM,NA 133 mmol/L (136-145)
[2019-01-21 16:50] LABS: ANION GAP 17.3 mmol/L (10-20)
[2019-01-21] MEDS ORDERED: Sodium Chloride 0.9% 1,000 ML IV SCH (17:00)
[2019-01-21] MEDS ORDERED: Potassium Chloride 10 MEQ in Premix Bag 1 BAG IV ONE (17:01)
== END 2019-01-21 19:05 | disposition home or self-care (01) ==
LOC: VM.ED 15:56
DX: R10.84 Generalized abdominal pain (principal); N18.9 Chronic kidney disease, unspecified; Z88.5 Allergy status to narcotic agent; Z88.0 Allergy status to penicillin; Z88.8 Allergy status to other drugs, medicaments and biological substances; Z79.899 Other long term (current) drug therapy
CPT/HCPCS: 80053; 83735; 85025; 93005; 96361; 96365; 96375; 99284; J0780; J1170; J1200; J1642; J3480; J7030

== ENCOUNTER 2019-01-25 10:59 | Emergency (ER) | payer BC, OTHER ==
--- NOTE | 2019-01-25 11:24 | EDM.PDOC ---
ED HPI GENERAL MEDICAL PROBLEM - General Chief Complaint: Abdominal Pain Stated Complaint: VOMITING,ABDOMINAL PAIN,WEAKNESS Time Seen by Provider: 01/25/19 11:16 Source of Information: Reports: Patient, Family History Limitations: Reports: No Limitations Right Lower Abdomen Pain Score (Numeric/FACES): 9 - Related Data Allergies Allergy/AdvReac Type Severity Reaction Status Date / Time codeine Allergy Severe Anaphylactic Verified 01/21/19 16:42 Shock Penicillins Allergy Severe Anaphylactic Verified 01/21/19 16:42 Shock propoxyphene Allergy Severe Anaphylactic Verified 01/21/19 16:42 [From Darvocet-N] Shock lactose AdvReac Diarrhea Verified 01/21/19 16:42 metoclopramide [From Reglan] AdvReac Stomach Verified 01/21/19 16:42 Ache morphine AdvReac Headache Verified 01/21/19 16:42 Home Meds: Home Meds Dicyclomine [Bentyl] 10 mg PO QID 05/03/18 [History] Ondansetron HCl [Ondansetron] 8 mg PO TID PRN 05/03/18 [History] Ranitidine HCl [Ranitidine] 150 mg PO BEDTIME 05/03/18 [History] Vit Calc,Iron,Folic [ Vitamins] 1 tab PO DAILY 05/23/18 [ History] Bethanechol [Urecholine] 25 mg PO TID 09/01/18 [History] Lactobacillus Rhamnosus GG [Culturelle] 1 cap PO DAILY 09/01/18 [History] Acetaminophen [Tylenol Extra Strength] 1,000 mg PO TID PRN 11/23/18 [History] Amitriptyline [Elavil] 50 mg PO BEDTIME 11/23/18 [History] Cod Liver Oil/Zinc Oxide [Desitin Diaper Rash 40% Paste] 1 appful TOP Q2H PRN [History] Dronabinol [Marinol] 5 mg PO BIDAC 11/23/18 [History] Gabapentin [Neurontin] 200 mg PO TID 11/23/18 [History] HYDROmorphone [Dilaudid] 2 mg PO Q4H PRN 11/23/18 [History] Hydrocortisone [Anusol-HC] 1 appful RC TID PRN 11/23/18 [History] Melatonin 6 mg PO BEDTIME 11/23/18 [History] Metoclopramide [Reglan] 5 mg PO QID 11/23/18 [History] Mirtazapine [Remeron] 15 mg PO BEDTIME 11/23/18 [History] Omeprazole Magnesium [Prilosec Otc] 40 mg PO BIDAC 11/23/18 [History] Promethazine [Phenergan] 25 mg PO Q6H PRN 11/23/18 [History] Simethicone 80 mg PO QID PRN 11/23/18 [History] Sulfamethoxazole/Trimethoprim [Bactrim Ds Tablet] 1 tab PO MOWEFR@08 11/23/18 [ History] traZODone HCl [Trazodone HCl] 50 mg PO BEDTIME 11/23/18 [History] Ondansetron [Zofran] 4 mg IVPUSH Q6H PRN vial 12/04/18 [Rx] diphenhydrAMINE [Benadryl] 25 mg PO Q6H PRN cap 12/04/18 [Rx] Past Medical History HEENT History: Reports: None Cardiovascular History: Reports: None Respiratory History: Reports: None Gastrointestinal History: Reports: Inflammatory Bowel Disease Other Gastrointestinal History: crohn's disease. colotis Genitourinary History: Reports: Acute Renal Failure, Chronic Renal Insuffiency PHARMACY HELPER History: Reports: None Musculoskeletal History: Reports: Back Pain, Chronic Neurological History: Reports: None Psychiatric History: Reports: None Endocrine/Metabolic History: Reports: None Hematologic History: Reports: Anemia Immunologic History: Reports: None Oncologic (Cancer) History: Reports: None Dermatologic History: Reports: None - Infectious Disease History Infectious Disease History: Reports: C-Difficile, Chicken Pox - Past Surgical History GI Surgical History: Reports: Appendectomy, Cholecystectomy, Other (See Below) Other GI Surgeries/Procedures: partial sigmoidectomy Social & Family History - Family History Family Medical History: Noncontributory Neurological: Reports: Parkinson's Oncologic: Reports: Brain, Liver - Caffeine Use Caffeine Use: Reports: None - Living Situation & Occupation Living situation: Reports: , with Significant Other (from [place] but staying with her daughter in [place]) 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 GENERAL - Review of Systems Review Of Systems: See Below Constitutional: Reports: No Symptoms HEENT: Reports: No Symptoms Respiratory: Reports: No Symptoms Cardiovascular: Reports: No Symptoms Endocrine: Reports: No Symptoms GI/Abdominal: Reports: Abdominal Pain, Diarrhea, Nausea, Vomiting : Reports: No Symptoms Musculoskeletal: Reports: No Symptoms Skin: Reports: No Symptoms Neurological: Reports: No Symptoms Psychiatric: Reports: No Symptoms Hematologic/Lymphatic: Reports: No Symptoms Immunologic: Reports: No Symptoms ED EXAM, GI/ABD - Physical Exam Exam: See Below Exam Limited By: No Limitations General Appearance: Alert, WD/WN, Mild Distress Eyes: Bilateral: Normal Appearance, EOMI Ears: Normal TMs Nose: Normal Inspection, Normal Mucosa, No Blood Throat/Mouth: Normal Inspection, Normal Lips, Normal Teeth, Normal Gums, Normal Oropharynx, Normal Voice, No Airway Compromise Head: Atraumatic, Normocephalic Neck: Normal Inspection, Supple, Non-Tender, Full Range of Motion Respiratory/Chest: No Respiratory Distress, Lungs Clear, Normal Breath Sounds, No Accessory Muscle Use, Chest Non-Tender Cardiovascular: Normal Peripheral Pulses, Regular Rate, Rhythm, No Edema, No Gallop, No JVD, No Murmur, No Rub GI/Abdominal Exam: Normal Bowel Sounds, Soft, Non-Tender, Other (gtube inserted) Back Exam: Normal Inspection, Full Range of Motion, NT Extremities: Normal Inspection, Normal Range of Motion, Non-Tender, Normal Capillary Refill, No Pedal Edema Neurological: Alert, Oriented, CN II-XII Intact, Normal Cognition, Normal Gait, Normal Reflexes, No Motor/Sensory Deficits Psychiatric: Normal Affect, Normal Mood Skin Exam: Warm, Dry, Normal Color, Erythema (some erythema by g-tube insertion site. Area does not appear to be infected. No drainage, swelling) Course - Vital Signs Last Recorded V/S: Last Vital Signs Temp 37.3 C 01/25/19 15:01 Pulse 75 01/25/19 15:01 Resp 16 01/25/19 15:01 BP 94/52 L 01/25/19 15:01 Pulse Ox 97 01/25/19 15:01 - Orders/Labs/Meds Orders: Active Orders 24 hr Category Date Time Status CULTURE BLOOD [BC] Stat Lab 01/25/19 12:35 Ordered CULTURE BLOOD [BC] Stat Lab 01/25/19 12:35 Ordered D5 1/2 NS w/ 40 mEq/L KCl 1,000 ml Med 01/25/19 14:45 Ordered IV ASDIRECTED Sodium Chloride 0.9% [Normal Saline] 1,000 ml Med 01/25/19 11:30 Ordered IV ASDIRECTED Vancomycin 0.75 gm Med 01/25/19 15:47 Ordered Sodium Chloride 0.9% [Normal Saline] 250 ml IV STAT Blood Culture x2 Reflex Set [OM.PC] Stat Oth 01/25/19 12:35 Ordered Medication Orders Sodium Chloride (Normal Saline) 1,000 mls @ 999 mls/hr IV ASDIRECTED MARY Last Admin: 01/25/19 11:53 Dose: 999 mls/hr Potassium Chloride/Dextrose/Sod Cl (D5 1/2 Ns W/ 40 Meq/L Kcl) 1,000 mls @ 250 mls/hr IV ASDIRECTED MARY Last Admin: 01/25/19 15:29 Dose: 250 mls/hr Vancomycin HCl 0.75 gm/ Sodium (Chloride) 250 mls @ 250 mls/hr IV STAT ONE Stop: 01/25/19 16:46 Labs: Laboratory Tests 01/25/19 01/25/19 01/25/19 Range/Units 11:38 11:38 11:38 WBC 22.7 H* (4.0-10.0) x10^3/uL RBC 4.79 (4.00-5.50) x10^6/uL Hgb 14.5 D (12.0-16.0) g/dL Hct 42.3 (33.0-47.0) % MCV 88.3 (78.0-93.0) fL MCH 30.3 (26.0-32.0) pg MCHC 34.3 (32.0-36.0) g/dL RDW Coeff of Brianda 13.3 (10.0-15.0) % Plt Count 635 H D (130-400) x10^3/uL Add Manual Diff Yes Neutrophils % (Manual) 81 H (50-80) % Band Neutrophils % 1 (0-6) % Lymphocytes % (Manual) 7 L (25-50) % Monocytes % (Manual) 9 (2-11) % Eosinophils % (Manual) 2 (0-4) % Platelet Estimate Marked inc H ESR 51 H (0-21) mm/hr Sodium 123 L* (138-146) mmol/L Potassium 2.6 L* (3.5-4.9) mmol/L Chloride 90 L (98-109) mmol/L Carbon Dioxide 20 L (24-29) mmol/L Anion Gap 15.6 (10-20) mmol/L BUN 46 H (8-26) mg/dL Creatinine 3.5 H* (0.6-1.3) mg/dL Est Cr Clr Drug Dosing TNP Estimated GFR (MDRD) 14 Glucose 156 H (70-105) mg/dL Lactic Acid 1.0 (0.4-2.0) mmol/L Calcium 9.7 (8.5-10.1) mg/dL Corrected Calcium 9.46 (8.5-10.1) mg/dL Total Bilirubin 0.3 (0.2-1.0) mg/dL AST 24 (15-37) U/L ALT 29 (14-59) U/L Alkaline Phosphatase 128 H (46-116) U/L C-Reactive Protein 0.3 (<=0.9) mg/dL Total Protein 9.1 H (6.4-8.2) g/dL Albumin 4.3 (3.4-5.0) g/dL Globulin 4.8 Albumin/Globulin Ratio 0.90 Meds: Medications Generic Name Dose Route Start Last Admin Trade Name Freq PRN Reason Stop Dose Admin Sodium Chloride 1,000 mls @ 999 mls/hr 01/25/19 11:30 01/25/19 11:53 Normal Saline IV 999 mls/hr ASDIRECTED MARY Administration Potassium Chloride/Dextrose/Sod Cl 1,000 mls @ 250 mls/hr 01/25/19 14:45 15:29 D5 1/2 Ns W/ 40 Meq/L Kcl IV 250 mls/hr ASDIRECTED MAYR Administration Vancomycin HCl 0.75 gm/ Sodium 250 mls @ 250 mls/hr 01/25/19 15:47 Chloride IV 01/25/19 16:46 STAT ONE Discontinued Medications Generic Name Dose Route Start Last Admin Trade Name Freq PRN Reason Stop Dose Admin Diphenhydramine HCl 25 mg 01/25/19 11:25 01/25/19 11:56 Benadryl IVPUSH 01/25/19 11:26 25 mg ONETIME ONE Administration Hydromorphone HCl 1 mg 01/25/19 11:25 01/25/19 11:54 Dilaudid IVPUSH 01/25/19 11:26 1 mg ONETIME ONE Administration Vancomycin HCl 1 gm/ Sodium 250 mls @ 250 mls/hr 01/25/19 15:19 01/25/19 15: 54 Chloride IV 01/25/19 16:18 250 mls/hr STAT ONE Administration Prochlorperazine Edisylate 5 mg 01/25/19 11:25 01/25/19 11:58 Compazine IV 01/25/19 11:26 5 mg ONETIME ONE Administration Departure - Departure Time of Disposition: 16:05 Disposition: DC/Tfer to Acute Hospital 02 Condition: Good Clinical Impression: Acute renal failure (ARF), Ulcerative (chronic) pancolitis with rectal bleeding - Discharge Information *PRESCRIPTION DRUG MONITORING PROGRAM REVIEWED*: No *COPY OF PRESCRIPTION DRUG MONITORING REPORT IN PATIENT CHELSEY: No Referrals: Xiomy Oliva MD [Primary Care Provider] - Forms: ED Department Discharge, [facility]facility [facility] Communication - ED Communication Date/Time Date: 01/25/19 Time Called: 15:00 - Discussed Case With (1) Discussed Case With (1): Admitting Provider (Dr. Jones, hospitalist at [facility] called and report was given.) - Problem List & Annotations (1) Acute renal failure (ARF) SNOMED Code(s): 61360722 Code(s): N17.9 - ACUTE KIDNEY FAILURE, UNSPECIFIED Status: Acute Priority : Medium Current Visit: Yes (2) Acute Crohn's disease SNOMED Code(s): 38610890, 98026334 Code(s): K50.90 - CROHN'S DISEASE, UNSPECIFIED, WITHOUT COMPLICATIONS Status: Acute Current Visit: No Qualifiers: Digestive disease complication type: with rectal bleeding Qualified Code(s) : K50.911 - Crohn's disease, unspecified, with rectal bleeding - My Orders Last 24 Hours: My Active Orders 01/25/19 11:30 Sodium Chloride 0.9% [Normal Saline] 1,000 ml IV ASDIRECTED 01/25/19 12:35 CULTURE BLOOD [BC] Stat CULTURE BLOOD [BC] Stat Blood Culture x2 Reflex Set [OM.PC] Stat 01/25/19 14:45 D5 1/2 NS w/ 40 mEq/L KCl 1,000 ml IV ASDIRECTED 01/25/19 15:47 Vancomycin 0.75 gm Sodium Chloride 0.9% [Normal Saline] 250 ml IV STAT - Assessment/Plan Last 24 Hours: My Active Orders 01/25/19 11:30 Sodium Chloride 0.9% [Normal Saline] 1,000 ml IV ASDIRECTED 01/25/19 12:35 CULTURE BLOOD [BC] Stat CULTURE BLOOD [BC] Stat Blood Culture x2 Reflex Set [OM.PC] Stat 01/25/19 14:45 D5 1/2 NS w/ 40 mEq/L KCl 1,000 ml IV ASDIRECTED 01/25/19 15:47 Vancomycin 0.75 gm Sodium Chloride 0.9% [Normal Saline] 250 ml IV STAT
[2019-01-25] MEDS ORDERED: HYDROmorphone 1 MG/ML Syringe IVPUSH ONE (11:25)
[2019-01-25] MEDS ORDERED: diphenhydrAMINE 50 MG/ML SDV IVPUSH ONE (11:25)
[2019-01-25] MEDS ORDERED: Prochlorperazine 10 MG/2 ML SDV IV ONE (11:25)
[2019-01-25] MEDS ORDERED: Sodium Chloride 0.9% 1,000 ML IV SCH (11:30)
[2019-01-25 11:57] LABS: SODIUM,NA 123 mmol/L (138-146)
[2019-01-25 11:58] LABS: ANION GAP 15.6 mmol/L (10-20); CHLORIDE,CL 90 mmol/L (98-109)
--- NOTE | 2019-01-25 13:18 | CT ---
[id number] CT/CT Abdomen Pelvis WO IV EXAM: CT Abdomen Pelvis WO IV CLINICAL DATA: ABDOMINAL PAIN. COMPARISON STUDY: December 11, 2018. FINDINGS: Evaluation is limited without the use of IV or oral contrast. Lung bases are clear. Subcentimeter hypodensities within the liver are stable and likely represent cysts. The liver is otherwise unremarkable. The gallbladder is surgically absent. The spleen, pancreas and adrenal glands are unremarkable. Bilateral nonobstructive renal calculi are not significant changed compared to the prior study. Additionally there are renal cysts bilaterally. No hydronephrosis or hydroureter. There is a midline GJ tube with tip terminating within the jejunum. Evaluation is limited secondary to lack of IV contrast however there appears to be prominence of the rectum distal to the anastomosis, slightly increased when compared to the prior study. Multiple stable prominent mesenteric lymph nodes. No free fluid or pneumoperitoneum. No fracture or osseous lesion. IMPRESSION: Evaluation is limited secondary to lack of IV contrast and oral. However, there is persistent circumferential wall thickening distal to the anastomosis. Overall this appears to have increased slightly when compared to the prior. These findings are consistent with patient's history of inflammatory bowel disease. No evidence of obstruction. Maikel Medley DO 01/25/19 [id number] Thank you for allowing us to participate in the care of your patient.
[2019-01-25] MEDS ORDERED: D5 1/2 NS w/ 40 mEq/L KCl 1,000 ML IV SCH (14:45)
== END 2019-01-25 16:10 | disposition short-term general hospital (02) ==
LOC: VM.ED 10:59
DX: N17.9 Acute kidney failure, unspecified (principal); K51.011 Ulcerative (chronic) pancolitis with rectal bleeding; N18.9 Chronic kidney disease, unspecified; Z79.899 Other long term (current) drug therapy; Z88.5 Allergy status to narcotic agent; Z88.0 Allergy status to penicillin; Z88.8 Allergy status to other drugs, medicaments and biological substances; Z91.011 Allergy to milk products
CPT/HCPCS: 36415; 74176; 80053; 83605; 85025; 85652; 86140; 87040; 96361; 96365; 96368; 96375; 99285; J0780; J1170; J1200; J3370; J3480; J7030; J7050

== ENCOUNTER 2019-01-30 13:54 | Emergency (ER) | payer BC, OTHER ==
[2019-01-30] MEDS ORDERED: Prochlorperazine 10 MG/2 ML SDV IV ONE ×2 (14:16→17:41)
[2019-01-30] MEDS ORDERED: HYDROmorphone 1 MG/ML Syringe IVPUSH ONE ×2 (14:16→17:40)
[2019-01-30] MEDS ORDERED: diphenhydrAMINE 50 MG/ML SDV IVPUSH ONE (14:17)
[2019-01-30] MEDS ORDERED: Lactated Ringers 1,000 ML IV ONE (14:19)
[2019-01-30 15:01] LABS: ANION GAP 19.5 mmol/L (10-20)
--- NOTE | 2019-01-30 15:31 | CR ---
[id number] RAD/RAD Abd Flat and Upright 2V EXAM: RAD Abd Flat and Upright 2V INDICATION: ABDOMINAL PAIN. COMPARISON: December 11, 2018 and January 25, 2019. DISCUSSION: Upright view demonstrates scattered air-fluid levels throughout the colon and distal small bowel. Findings are similar to December 11, 2018. Similar findings were seen on CT from January 25, 2019. No definite evidence of obstruction. No pneumoperitoneum or pneumatosis. Percutaneous jejunostomy tube in place. IMPRESSION: No acute findings in the abdomen or significant change in appearance compared to numerous prior examinations. Morgan Nye MD 01/30/19 1527 Thank you for allowing us to participate in the care of your patient.
[2019-01-30] MEDS ORDERED: D5 1/2 NS w/ 40 mEq/L KCl 1,000 ML IV SCH (15:45)
--- NOTE | 2019-01-30 16:38 | EDM.PDOC ---
ED HPI GENERAL MEDICAL PROBLEM - General Chief Complaint: Gastrointestinal Problem Stated Complaint: PAIN;NAUSEA Time Seen by Provider: 01/30/19 14:09 Source of Information: Reports: Patient, Family History Limitations: Reports: No Limitations - History of Present Illness INITIAL COMMENTS - FREE TEXT/NARRATIVE: PtNelly presents to ER with complaints of abdominal pain, nausea, vomiting, and diarrhea. Pt. has a history of Crohn's disease and has been hospitalized for this and cyclic vomiting many times, the last time being last week. At that time , she was acutely dehydrated with CHARIS, hypokalemia, and leukocytosis. She was rehydrated and her nausea was treated with compazine and zofran and her pain was managed with parenteral pain medication, including dilaudid. She was discharged from [facility] on Wednesday. She had undergone a flex sig while she was admitted which showed evidence of a mild Crohn flare-up. She states that she was not feeling very well at time of discharge, was still having abdominal pain and nausea but her vomiting was controlled. She had been rehydrated with crystalloids and her electrolytes were repleted. She was informed to follow-up with her PCP regarding restarting tube feedings and IV fluids through her port. She states that the symptoms got worse over the past 24 hours. No fever or chills. No chest pain or shortness of breath. She does complain of some lightheadedness and weakness. Pt. 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 Onset: Today Location: Reports: Abdomen, Generalized Quality: Reports: Ache, Burning Severity: Severe Associated Symptoms: Reports: Nausea/Vomiting. Denies: Fever/Chills Lower Abdominal Pain Score (Numeric/FACES): 8 - Related Data Allergies Allergy/AdvReac Type Severity Reaction Status Date / Time codeine Allergy Severe Anaphylactic Verified 01/30/19 14:08 Shock Penicillins Allergy Severe Anaphylactic Verified 01/30/19 14:08 Shock propoxyphene Allergy Severe Anaphylactic Verified 01/30/19 14:08 [From Darvocet-N] Shock lactose AdvReac Diarrhea Verified 01/30/19 14:08 metoclopramide [From Reglan] AdvReac Stomach Verified 01/30/19 14:08 Ache morphine AdvReac Headache Verified 01/30/19 14:08 Home Meds: Home Meds Dicyclomine [Bentyl] 10 mg PO QID 05/03/18 [History] Ondansetron HCl [Ondansetron] 8 mg PO TID PRN 05/03/18 [History] Ranitidine HCl [Ranitidine] 150 mg PO BEDTIME 05/03/18 [History] Vit Calc,Iron,Folic [ Vitamins] 1 tab PO DAILY 05/23/18 [ History] Bethanechol [Urecholine] 25 mg PO TID 09/01/18 [History] Lactobacillus Rhamnosus GG [Culturelle] 1 cap PO DAILY 09/01/18 [History] Acetaminophen [Tylenol Extra Strength] 1,000 mg PO TID PRN 11/23/18 [History] Amitriptyline [Elavil] 50 mg PO BEDTIME 11/23/18 [History] Cod Liver Oil/Zinc Oxide [Desitin Diaper Rash 40% Paste] 1 appful TOP Q2H PRN [History] Dronabinol [Marinol] 5 mg PO BIDAC 11/23/18 [History] Gabapentin [Neurontin] 200 mg PO TID 11/23/18 [History] HYDROmorphone [Dilaudid] 2 mg PO Q4H PRN 11/23/18 [History] Hydrocortisone [Anusol-HC] 1 appful RC TID PRN 11/23/18 [History] Melatonin 6 mg PO BEDTIME 11/23/18 [History] Metoclopramide [Reglan] 5 mg PO QID 11/23/18 [History] Mirtazapine [Remeron] 15 mg PO BEDTIME 11/23/18 [History] Omeprazole Magnesium [Prilosec Otc] 40 mg PO BIDAC 11/23/18 [History] Promethazine [Phenergan] 25 mg PO Q6H PRN 11/23/18 [History] Simethicone 80 mg PO QID PRN 11/23/18 [History] Sulfamethoxazole/Trimethoprim [Bactrim Ds Tablet] 1 tab PO MOWEFR@08 11/23/18 [ History] traZODone HCl [Trazodone HCl] 50 mg PO BEDTIME 11/23/18 [History] Ondansetron [Zofran] 4 mg IVPUSH Q6H PRN vial 12/04/18 [Rx] diphenhydrAMINE [Benadryl] 25 mg PO Q6H PRN cap 12/04/18 [Rx] Past Medical History HEENT History: Reports: None Cardiovascular History: Reports: None Respiratory History: Reports: None Gastrointestinal History: Reports: Inflammatory Bowel Disease Other Gastrointestinal History: crohn's disease. 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: Reports: None Musculoskeletal History: Reports: Back Pain, Chronic Neurological History: Reports: None Psychiatric History: Reports: None Endocrine/Metabolic History: Reports: None Hematologic History: Reports: Anemia Immunologic History: Reports: None Oncologic (Cancer) History: Reports: None Dermatologic History: Reports: None - Infectious Disease History Infectious Disease History: Reports: C-Difficile, Chicken Pox - Past Surgical History GI Surgical History: Reports: Appendectomy, Cholecystectomy, Other (See Below) Other GI Surgeries/Procedures: partial sigmoidectomy Social & Family History - Family History Family Medical History: Noncontributory Neurological: Reports: Parkinson's Oncologic: Reports: Brain, Liver - Tobacco Use Smoking Status *Q: Never Smoker - Caffeine Use Caffeine Use: Reports: None - Living Situation & Occupation Living situation: Reports: , with Significant Other (from [place] but staying with her daughter in [place]) 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 Denies: Black Stool , Bloody Stool : Reports: No Symptoms Musculoskeletal: Reports: No Symptoms Skin: Reports: Pallor, Dryness Neurological: Reports: No Symptoms Psychiatric: Reports: No Symptoms Hematologic/Lymphatic: Reports: No Symptoms Immunologic: Reports: No Symptoms ED EXAM, GENERAL - Physical Exam Exam: See Below Exam Limited By: No Limitations General Appearance: Alert, WD/WN, Moderate Distress Eye Exam: Bilateral Eye: EOMI, Normal Fundi, Normal Inspection, PERRL Throat/Mouth: Normal Inspection, Normal Lips, Normal Teeth, Normal Gums, Normal Voice, No Airway Compromise, Other (oral mucosa is dry. ) Head: Atraumatic, Normocephalic Neck: Normal Inspection, Supple, Non-Tender, Full Range of Motion Respiratory/Chest: No Respiratory Distress, Lungs Clear, Normal Breath Sounds, No Accessory Muscle Use, Chest Non-Tender Cardiovascular: Normal Peripheral Pulses, Regular Rate, Rhythm, No Edema, No Murmur Peripheral Pulses: 4+: Radial (L), Radial (R) GI/Abdominal: Soft, Tender, Other (Bowel sounds hypoactive) (Female) Exam: Deferred Rectal (Female) Exam: Deferred Back Exam: Normal Inspection, Full Range of Motion Extremities: Normal Inspection, Normal Range of Motion, Non-Tender, Normal Capillary Refill Neurological: Alert, Oriented, CN II-XII Intact, Normal Cognition, Normal Gait, No Motor/Sensory Deficits Psychiatric: Normal Affect, Normal Mood Skin Exam: Warm, Dry, Intact, Pallor Lymphatic: No Adenopathy Course - Vital Signs Last Recorded V/S: Last Vital Signs Temp 37.2 C 01/30/19 14:09 Pulse 106 H 01/30/19 14:09 Resp 16 01/30/19 14:09 BP 109/64 01/30/19 14:09 Pulse Ox 99 01/30/19 14:09 - Orders/Labs/Meds Orders: Active Orders 24 hr Category Date Time Status Implanted Port Access [RC] ASDIRECTED Care 01/30/19 14:15 Active CULTURE BLOOD [BC] Stat Lab 01/30/19 14:33 Results CULTURE BLOOD [BC] Stat Lab 01/30/19 15:08 Results UA W/MICROSCOPIC [URIN] Stat Lab 01/30/19 14:18 Ordered D5 1/2 NS w/ 40 mEq/L KCl 1,000 ml Med 01/30/19 15:45 Active IV ASDIRECTED Piperacillin/Tazobactam [Zosyn] 3.375 gm Med 01/30/19 18:00 Active Sodium Chloride 0.9% [Normal Saline] 100 ml IV STAT Blood Culture x2 Reflex Set [OM.PC] Stat Oth 01/30/19 14:59 Ordered Medication Orders Potassium Chloride/Dextrose/Sod Cl (D5 1/2 Ns W/ 40 Meq/L Kcl) 1,000 mls @ 150 mls/hr IV ASDIRECTED MARY Last Admin: 01/30/19 16:03 Dose: 150 mls/hr Piperacillin Sod/Tazobactam (Sod 3.375 gm/ Sodium Chloride) 100 mls @ 200 mls/ hr IV STAT ONE Stop: 01/30/19 18:29 Labs: Laboratory Tests 01/30/19 01/30/19 01/30/19 Range/Units 14:33 14:33 14:33 WBC 24.8 H* (4.0-10.0) x10^3/uL RBC 4.54 (4.00-5.50) x10^6/uL Hgb 13.7 (12.0-16.0) g/dL Hct 40.1 (33.0-47.0) % MCV 88.3 (78.0-93.0) fL MCH 30.2 (26.0-32.0) pg MCHC 34.2 (32.0-36.0) g/dL RDW Coeff of Brianda 13.9 (10.0-15.0) % Plt Count 497 H D (130-400) x10^3/uL Add Manual Diff Yes Neutrophils % (Manual) 83 H (50-80) % Band Neutrophils % 1 (0-6) % Lymphocytes % (Manual) 12 L (25-50) % Monocytes % (Manual) 3 (2-11) % Eosinophils % (Manual) 1 (0-4) % Platelet Estimate Increased H Anisocytosis 1+ slight H PT 10.1 (9.6-11.4) SEC INR 1.0 L (2.0-3.5) Sodium 132 L (136-145) mmol/L Potassium 2.5 L* (3.5-5.1) mmol/L Chloride 93 L (98-107) mmol/L Carbon Dioxide 22 (21-32) mmol/L Anion Gap 19.5 (10-20) mmol/L BUN 21 H (7-18) mg/dL Creatinine 1.8 H (0.55-1.02) mg/dL Est Cr Clr Drug Dosing 24.33 mL/min Estimated GFR (MDRD) 30 Glucose 102 (74-106) mg/dL Lactic Acid (0.4-2.0) mmol/L Calcium 9.6 (8.5-10.1) mg/dL Corrected Calcium 10.08 (8.5-10.1) mg/dL Phosphorus 4.0 (2.6-4.7) mg/dL Magnesium 2.4 (1.8-2.4) mg/dL Total Bilirubin 0.3 (0.2-1.0) mg/dL AST 12 L (15-37) U/L ALT 26 (14-59) U/L Alkaline Phosphatase 108 (46-116) U/L C-Reactive Protein 4.7 H (<=0.9) mg/dL Total Protein 7.5 (6.4-8.2) g/dL Albumin 3.4 (3.4-5.0) g/dL Globulin 4.1 Albumin/Globulin Ratio 0.83 //19 Range/Units 14:33 WBC (4.0-10.0) x10^3/uL RBC (4.00-5.50) x10^6/uL Hgb (12.0-16.0) g/dL Hct (33.0-47.0) % MCV (78.0-93.0) fL MCH (26.0-32.0) pg MCHC (32.0-36.0) g/dL RDW Coeff of Brianda (10.0-15.0) % Plt Count (130-400) x10^3/uL Add Manual Diff Neutrophils % (Manual) (50-80) % Band Neutrophils % (0-6) % Lymphocytes % (Manual) (25-50) % Monocytes % (Manual) (2-11) % Eosinophils % (Manual) (0-4) % Platelet Estimate Anisocytosis PT (9.6-11.4) SEC INR (2.0-3.5) Sodium (136-145) mmol/L Potassium (3.5-5.1) mmol/L Chloride (98-107) mmol/L Carbon Dioxide (21-32) mmol/L Anion Gap (10-20) mmol/L BUN (7-18) mg/dL Creatinine (0.55-1.02) mg/dL Est Cr Clr Drug Dosing mL/min Estimated GFR (MDRD) Glucose (74-106) mg/dL Lactic Acid 1.9 (0.4-2.0) mmol/L Calcium (8.5-10.1) mg/dL Corrected Calcium (8.5-10.1) mg/dL Phosphorus (2.6-4.7) mg/dL Magnesium (1.8-2.4) mg/dL Total Bilirubin (0.2-1.0) mg/dL AST (15-37) U/L ALT (14-59) U/L Alkaline Phosphatase (46-116) U/L C-Reactive Protein (<=0.9) mg/dL Total Protein (6.4-8.2) g/dL Albumin (3.4-5.0) g/dL Globulin Albumin/Globulin Ratio Meds: Medications Generic Name Dose Route Start Last Admin Trade Name Freq PRN Reason Stop Dose Admin Potassium Chloride/Dextrose/Sod Cl 1,000 mls @ 150 mls/hr 01/30/19 15:45 16:03 D5 1/2 Ns W/ 40 Meq/L Kcl IV 150 mls/hr ASDIRECTED MARY Administration Piperacillin Sod/Tazobactam 100 mls @ 200 mls/hr 01/30/19 18:00 Sod 3.375 gm/ Sodium Chloride IV 01/30/19 18:29 STAT ONE Discontinued Medications Generic Name Dose Route Start Last Admin Trade Name Freq PRN Reason Stop Dose Admin Diphenhydramine HCl 50 mg 01/30/19 14:17 01/30/19 14:37 Benadryl IVPUSH 01/30/19 14:18 50 mg ONETIME ONE Administration Hydromorphone HCl 1 mg 01/30/19 14:16 01/30/19 14:33 Dilaudid IVPUSH 01/30/19 14:17 1 mg ONETIME ONE Administration Hydromorphone HCl 1 mg 01/30/19 17:40 01/30/19 17:49 Dilaudid IVPUSH 01/30/19 17:41 1 mg ONETIME ONE Administration Lactated Ringer's 1,000 mls @ 1,000 mls/hr 01/30/19 14:19 01/30/19 14:33 Ringers, Lactated IV 01/30/19 15:18 1,000 mls/hr ONETIME ONE Administration Prochlorperazine Edisylate 10 mg 01/30/19 14:16 01/30/19 14:35 Compazine IV 01/30/19 14:17 10 mg ONETIME ONE Administration Prochlorperazine Edisylate 10 mg 01/30/19 17:41 01/30/19 17:49 Compazine IV 01/30/19 17:42 10 mg ONETIME ONE Administration - Radiology Interpretation Free Text/Narrative:: Flat and upright abd. x-rays are negative for acute pathology. - Re-Assessments/Exams Free Text/Narrative Re-Assessment/Exam: Pt. was given lactated ringers 1 L IV. She was given dilaudid 1 mg IV, compazine 10mg IV, and benadryl 50mg IV. Reported Departure - Departure Time of Disposition: 16:15 Disposition: DC/Tfer to [facility] 02 Clinical Impression: Cyclical vomiting Crohn disease Qualifiers: Gastrointestinal tract location: unspecified location Digestive disease complication type: unspecified complication Qualified Code(s): K50.919 - Crohn' s disease, unspecified, with unspecified complications - Discharge Information Referrals: Xiomy Oliva MD [Primary Care Provider] - Forms: ED Department Discharge - Problem List Review Problem List Initiated/Reviewed/Updated: Yes - My Orders Last 24 Hours: My Active Orders 01/30/19 14:15 Implanted Port Access [RC] ASDIRECTED 01/30/19 14:18 UA W/MICROSCOPIC [URIN] Stat 01/30/19 14:33 CULTURE BLOOD [BC] Stat 01/30/19 14:59 Blood Culture x2 Reflex Set [OM.PC] Stat 01/30/19 15:08 CULTURE BLOOD [BC] Stat 01/30/19 15:45 D5 1/2 NS w/ 40 mEq/L KCl 1,000 ml IV ASDIRECTED 01/30/19 18:00 Piperacillin/Tazobactam [Zosyn] 3.375 gm Sodium Chloride 0.9% [Normal Saline] 100 ml IV STAT - Assessment/Plan Last 24 Hours: My Active Orders 01/30/19 14:15 Implanted Port Access [RC] ASDIRECTED 01/30/19 14:18 UA W/MICROSCOPIC [URIN] Stat 01/30/19 14:33 CULTURE BLOOD [BC] Stat 01/30/19 14:59 Blood Culture x2 Reflex Set [OM.PC] Stat 01/30/19 15:08 CULTURE BLOOD [BC] Stat 01/30/19 15:45 D5 1/2 NS w/ 40 mEq/L KCl 1,000 ml IV ASDIRECTED 01/30/19 18:00 Piperacillin/Tazobactam [Zosyn] 3.375 gm Sodium Chloride 0.9% [Normal Saline] 100 ml IV STAT Plan: Pt. was given a liter of LR IV. Pain was controlled with IV dilaudid and nausea was controlled with compazine and benadryl. She was given 3.375gm Zosyn IV. She was started on LR with 40KCL at 100ml/hr. after the first liter. Initially spoke with Dr. Oliva about admission to our facility but it was felt that the patient would be better served in an acute care facility with GI available as she may require an extended admission. I subsequently spoke with Dr. Dolan ([facility]) who felt she should be transferred to [place] (or that they should be consulted at minimum). I spoke with Dr. Menjivar who felt patient did not need to be transferred at this point, and advised admission locally ([facility] or [facility]) for rehydration, antibiotics, steroids, and trending of labs. Advised doing a CT abd. and pelvis with contrast if she spikes a fever , has increased pain, etc. Subsequently spoke with Dr. Jones, hospitalist at [facility] who accepts the patient in transfer. She will be admitted to [facility]. She is a code 1. She will be transported via [facility] ground ambulance. Discussed findings and play of care at length with patient and family. A total of 3.5 hours was spent caring for and coordinating care for this patient and reviewing her medical records.
[2019-01-30] MEDS ORDERED: Piperacillin/Tazobactam 3.375 GM in Sodium Chloride 0.9% 100 ML IV ONE (18:00)
== END 2019-01-30 19:25 | disposition short-term general hospital (02) ==
LOC: VM.ED 13:54
DX: K50.919 Crohn's disease, unspecified, with unspecified complications (principal); G43.A0 Cyclical vomiting, in migraine, not intractable; Z88.5 Allergy status to narcotic agent; Z88.0 Allergy status to penicillin; Z79.899 Other long term (current) drug therapy
CPT/HCPCS: 36415; 74019; 80053; 83605; 83735; 84100; 85025; 85610; 86140; 87040; 96361; 96365; 96366; 96368; 96375; 96376; 99285-25; J0780; J1170; J1200; J2543; J3480; J7050; J7120

== ENCOUNTER 2019-02-11 10:02 | Emergency (ER) | payer BC, OTHER ==
[2019-02-11] MEDS ORDERED: diphenhydrAMINE 50 MG/ML SDV IVPUSH ONE (10:42)
[2019-02-11] MEDS ORDERED: HYDROmorphone 1 MG/ML Syringe IVPUSH ONE (10:42)
[2019-02-11] MEDS ORDERED: Lactated Ringers 1,000 ML IV ONE (10:42)
[2019-02-11] MEDS ORDERED: Prochlorperazine 10 MG/2 ML SDV IV ONE (10:42)
[2019-02-11] MEDS ORDERED: Sodium Chloride 0.9% 10 ML Syringe FLUSH PRN (10:44)
[2019-02-11 11:02] LABS: ANION GAP 15.8 mmol/L (10-20)
[2019-02-11] MEDS ORDERED: Potassium Chloride 10 MEQ in Premix Bag 1 BAG IV ONE (11:27)
--- NOTE | 2019-02-11 12:52 | EDM.PDOC ---
ED HPI GENERAL MEDICAL PROBLEM - General Chief Complaint: Abdominal Pain Stated Complaint: STOMACH PAIN, KEZIAA Time Seen by Provider: 02/11/19 10:30 Source of Information: Reports: Patient History Limitations: Reports: No Limitations - History of Present Illness INITIAL COMMENTS - FREE TEXT/NARRATIVE: Patient comes into the emergency department with abdominal pain. Patient states that she chronically has abdominal pain for she has Crohn's, diverticulitis, and irritable bowel. She has been coming in to home child care provider twice a week to receive fluids as well. She was due to come in today for her fluids. She states that the discomfort started within the last 2 days with increased nausea and has been unable to keep her nausea medications down since then. Her pain is characterized as sharp shoot generalized. Her normal medication regiment when she has come in has been Compazine, Benadryl, and Dilaudid. She would like to try this combination in hopes of not needing to be admitted. Onset: Sudden Location: Reports: Abdomen Quality: Reports: Sharp, Stabbing Severity: Moderate Improves with: Reports: None Worsens with: Reports: None Associated Symptoms: Reports: No Other Symptoms Right Lower Abdomen Pain Score (Numeric/FACES): 7 - Related Data Allergies Allergy/AdvReac Type Severity Reaction Status Date / Time codeine Allergy Severe Anaphylactic Verified 02/11/19 10:44 Shock Penicillins Allergy Severe Anaphylactic Verified 02/11/19 10:44 Shock propoxyphene Allergy Severe Anaphylactic Verified 02/11/19 10:44 [From Darvocet-N] Shock lactose AdvReac Diarrhea Verified 02/11/19 10:44 metoclopramide [From Reglan] AdvReac Stomach Verified 02/11/19 10:44 Ache morphine AdvReac Headache Verified 02/11/19 10:44 Home Meds: Home Meds Dicyclomine [Bentyl] 10 mg PO QID 05/03/18 [History] Ondansetron HCl [Ondansetron] 8 mg PO TID PRN 05/03/18 [History] Ranitidine HCl [Ranitidine] 150 mg PO BEDTIME 05/03/18 [History] Vit Calc,Iron,Folic [ Vitamins] 1 tab PO DAILY 05/23/18 [ History] Bethanechol [Urecholine] 25 mg PO TID 09/01/18 [History] Lactobacillus Rhamnosus GG [Culturelle] 1 cap PO DAILY 09/01/18 [History] Acetaminophen [Tylenol Extra Strength] 1,000 mg PO TID PRN 11/23/18 [History] Amitriptyline [Elavil] 50 mg PO BEDTIME 11/23/18 [History] Cod Liver Oil/Zinc Oxide [Desitin Diaper Rash 40% Paste] 1 appful TOP Q2H PRN [History] Dronabinol [Marinol] 5 mg PO BIDAC 11/23/18 [History] Gabapentin [Neurontin] 200 mg PO TID 11/23/18 [History] HYDROmorphone [Dilaudid] 2 mg PO Q4H PRN 11/23/18 [History] Hydrocortisone [Anusol-HC] 1 appful RC TID PRN 11/23/18 [History] Melatonin 6 mg PO BEDTIME 11/23/18 [History] Metoclopramide [Reglan] 5 mg PO QID 11/23/18 [History] Mirtazapine [Remeron] 15 mg PO BEDTIME 11/23/18 [History] Omeprazole Magnesium [Prilosec Otc] 40 mg PO BIDAC 11/23/18 [History] Promethazine [Phenergan] 25 mg PO Q6H PRN 11/23/18 [History] Simethicone 80 mg PO QID PRN 11/23/18 [History] Sulfamethoxazole/Trimethoprim [Bactrim Ds Tablet] 1 tab PO MOWEFR@08 11/23/18 [ History] traZODone HCl [Trazodone HCl] 50 mg PO BEDTIME 11/23/18 [History] Ondansetron [Zofran] 4 mg IVPUSH Q6H PRN vial 12/04/18 [Rx] diphenhydrAMINE [Benadryl] 25 mg PO Q6H PRN cap 12/04/18 [Rx] Past Medical History HEENT History: Reports: None Cardiovascular History: Reports: None Respiratory History: Reports: None Gastrointestinal History: Reports: Inflammatory Bowel Disease Other Gastrointestinal History: crohn's disease. 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 Musculoskeletal History: Reports: Back Pain, Chronic Neurological History: Reports: None Psychiatric History: Reports: None Endocrine/Metabolic History: Reports: None Hematologic History: Reports: Anemia Immunologic History: Reports: None Oncologic (Cancer) History: Reports: None Dermatologic History: Reports: None - Infectious Disease History Infectious Disease History: Reports: C-Difficile, Chicken Pox - Past Surgical History GI Surgical History: Reports: Appendectomy, Cholecystectomy, Colonoscopy, Other (See Below) Other GI Surgeries/Procedures: partial sigmoidectomy Social & Family History - Family History Family Medical History: Noncontributory Neurological: Reports: Parkinson's Oncologic: Reports: Brain, Liver - Tobacco Use Smoking Status *Q: Never Smoker - Caffeine Use Caffeine Use: Reports: None - Recreational Drug Use Recreational Drug Use: No - Living Situation & Occupation Living situation: Reports: , with Significant Other (from [place] but staying with her daughter in [place]) 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 GENERAL - Review of Systems Review Of Systems: See Below Constitutional: Reports: No Symptoms HEENT: Reports: No Symptoms Respiratory: Reports: No Symptoms Cardiovascular: Reports: No Symptoms Endocrine: Reports: No Symptoms GI/Abdominal: Reports: Abdominal Pain, Anorexia, Bloody Stool, Constipation, Distension, Nausea, Vomiting Musculoskeletal: Reports: No Symptoms Skin: Reports: No Symptoms Neurological: Reports: No Symptoms ED EXAM, GENERAL - Physical Exam Exam: See Below Exam Limited By: No Limitations General Appearance: Alert, WD/WN, No Apparent Distress Head: Atraumatic, Normocephalic Neck: Normal Inspection, Supple, Non-Tender, Full Range of Motion Respiratory/Chest: No Respiratory Distress, Lungs Clear, Normal Breath Sounds, No Accessory Muscle Use, Chest Non-Tender Cardiovascular: Normal Peripheral Pulses, Regular Rate, Rhythm GI/Abdominal: Distended, Guarding, Rigid, Tender, Abnormal Bowel Sounds Back Exam: Normal Inspection, Full Range of Motion Extremities: Normal Inspection, Normal Range of Motion, Normal Capillary Refill Neurological: Alert, Oriented Skin Exam: Warm, Dry, Intact, Normal Color Course - Vital Signs Last Recorded V/S: Last Vital Signs Temp 36.7 C 02/11/19 10:02 Pulse 98 02/11/19 10:02 Resp 16 02/11/19 10:02 BP 106/85 02/11/19 10:02 Pulse Ox 100 02/11/19 10:02 - Orders/Labs/Meds Orders: Active Orders 24 hr Category Date Time Status Cardiac Monitoring [RC] . DIRECTED Care 02/11/19 10:44 Active Heparin Sodium [Heparin Lock Flush 100 Units/ML] Med 02/11/19 12:49 Active 500 units IVPUSH ASDIRECTED PRN Sodium Chloride 0.9% [Saline Flush] Med 02/11/19 10:44 Active 10 ml FLUSH ASDIRECTED PRN Peripheral IV Insertion Adult [OM.PC] Stat Oth 02/11/19 10:44 Ordered Medication Orders Heparin Sodium (Porcine) (Heparin Lock Flush 100 Units/Ml) 500 units IVPUSH ASDIRECTED PRN PRN Reason: Keep Vein Open Sodium Chloride (Saline Flush) 10 ml FLUSH ASDIRECTED PRN PRN Reason: Keep Vein Open Labs: Laboratory Tests 02/11/19 02/11/19 Range/Units 10:15 10:15 WBC 13.1 H (4.0-10.0) x10^3/uL RBC 4.10 (4.00-5.50) x10^6/uL Hgb 12.3 (12.0-16.0) g/dL Hct 37.8 (33.0-47.0) % MCV 92.2 D (78.0-93.0) fL MCH 30.0 (26.0-32.0) pg MCHC 32.5 (32.0-36.0) g/dL RDW Coeff of Brianda 13.8 (10.0-15.0) % Plt Count 586 H D (130-400) x10^3/uL Neut % (Auto) 76.9 (50.0-80.0) % Lymph % (Auto) 12.7 L (25.0-50.0) % Kershaw % (Auto) 8.1 (2.0-11.0) % Eos % (Auto) 1.8 (0.0-4.0) % Baso % (Auto) 0.5 (0.2-1.2) % Sodium 136 (136-145) mmol/L Potassium 2.8 L* (3.5-5.1) mmol/L Chloride 96 L (98-107) mmol/L Carbon Dioxide 27 (21-32) mmol/L Anion Gap 15.8 (10-20) mmol/L BUN 18 (7-18) mg/dL Creatinine 1.8 H (0.55-1.02) mg/dL Est Cr Clr Drug Dosing 24.33 mL/min Estimated GFR (MDRD) 30 Glucose 89 (74-106) mg/dL Calcium 9.3 (8.5-10.1) mg/dL Corrected Calcium 9.62 (8.5-10.1) mg/dL Total Bilirubin 0.4 (0.2-1.0) mg/dL AST 18 (15-37) U/L ALT 21 (14-59) U/L Alkaline Phosphatase 97 (46-116) U/L Total Protein 7.8 (6.4-8.2) g/dL Albumin 3.6 (3.4-5.0) g/dL Globulin 4.2 Albumin/Globulin Ratio 0.86 Meds: Medications Generic Name Dose Route Start Last Admin Trade Name Freq PRN Reason Stop Dose Admin Heparin Sodium (Porcine) 500 units 02/11/19 12:49 Heparin Lock Flush 100 Units/Ml IVPUSH ASDIRECTED PRN Keep Vein Open Sodium Chloride 10 ml 02/11/19 10:44 Saline Flush FLUSH ASDIRECTED PRN Keep Vein Open Discontinued Medications Generic Name Dose Route Start Last Admin Trade Name Freq PRN Reason Stop Dose Admin Diphenhydramine HCl 50 mg 02/11/19 10:42 02/11/19 10:58 Benadryl IVPUSH 02/11/19 10:43 50 mg ONETIME ONE Administration Hydromorphone HCl 1 mg 02/11/19 10:42 02/11/19 10:54 Dilaudid IVPUSH 02/11/19 10:43 1 mg ONETIME ONE Administration Lactated Ringer's 1,000 mls @ 500 mls/hr 02/11/19 10:42 02/11/19 10:15 Ringers, Lactated IV 02/11/19 12:41 500 mls/hr ONETIME ONE Administration Potassium Chloride 10 meq/ 50 mls @ 50 mls/hr 02/11/19 11:27 02/11/19 11:58 Premix IV 02/11/19 12:26 50 mls/hr ONETIME ONE Administration Prochlorperazine Edisylate 10 mg 02/11/19 10:42 02/11/19 10:59 Compazine IV 02/11/19 10:43 10 mg ONETIME ONE Administration Departure - Departure Time of Disposition: 13:00 Disposition: Home, Self-Care 01 Condition: Good Clinical Impression: Hypokalemia Abdominal pain Qualifiers: Abdominal location: generalized Qualified Code(s): R10.84 - Generalized abdominal pain Vomiting Qualifiers: Vomiting type: unspecified Vomiting Intractability: unspecified Nausea presence : with nausea Qualified Code(s): R11.2 - Nausea with vomiting, unspecified - Discharge Information *PRESCRIPTION DRUG MONITORING PROGRAM REVIEWED*: Not Applicable *COPY OF PRESCRIPTION DRUG MONITORING REPORT IN PATIENT CHELSEY: Not Applicable Instructions: Nausea and Vomiting, Adult Referrals: Xiomy Oliva MD [Primary Care Provider] - Forms: ED Department Discharge Additional Instructions: 1. rest 2. increase your water intake when able 3. Continue to take at home medications to help with the discomfort and nausea 4. Keep you follow up with your PCP in 2-3 days 5. Activity and diet as tolerated 6. Call with any questions or concerns - Problem List Review Problem List Initiated/Reviewed/Updated: Yes - My Orders Last 24 Hours: My Active Orders 02/11/19 10:44 Cardiac Monitoring [RC] . DIRECTED Sodium Chloride 0.9% [Saline Flush] 10 ml FLUSH ASDIRECTED PRN Peripheral IV Insertion Adult [OM.PC] Stat 02/11/19 12:49 Heparin Sodium [Heparin Lock Flush 100 Units/ML] 500 units IVPUSH ASDIRECTED PRN - Assessment/Plan Last 24 Hours: My Active Orders 02/11/19 10:44 Cardiac Monitoring [RC] . DIRECTED Sodium Chloride 0.9% [Saline Flush] 10 ml FLUSH ASDIRECTED PRN Peripheral IV Insertion Adult [OM.PC] Stat 02/11/19 12:49 Heparin Sodium [Heparin Lock Flush 100 Units/ML] 500 units IVPUSH ASDIRECTED PRN Assessment:: 1. abdominal pain 2. nausea 3. Vomiting Plan: 1. Labs completed in ER. 2. Compazine, Benadryl and Dilaudid to help with the discomfort 3. Pt is encouraged to keep her appointment with the PCP next week to discuss further options and recommendations for alf management 4. Labs revealed hypokalemia which is a chronic finding. Pt is also on oral medication to help. We will give her a 1000ml fluid and a 10meq KCL. Pt is not wanting to be admitted and is aware of the complications that can result from low potassium levels. 5. Education regarding activity, diet, and follow up provided. 6. All questions and concerns addressed prior to discharge
== END 2019-02-11 13:09 | disposition home or self-care (01) ==
LOC: VM.ED 10:02
DX: R10.31 Right lower quadrant pain (principal); E87.6 Hypokalemia; R11.2 Nausea with vomiting, unspecified; N18.9 Chronic kidney disease, unspecified; Z88.5 Allergy status to narcotic agent; Z88.8 Allergy status to other drugs, medicaments and biological substances; Z91.011 Allergy to milk products; Z79.899 Other long term (current) drug therapy
CPT/HCPCS: 80053; 85025; 96361; 96365; 96375; 99284; J0780; J1170; J1200; J1642; J3480; J7120

== ENCOUNTER 2019-02-20 10:41 | Emergency (ER) | payer BC, OTHER ==
[2019-02-20] MEDS ORDERED: HYDROmorphone 1 MG/ML Syringe IVPUSH ONE ×3 (11:11→14:15)
--- NOTE | 2019-02-20 11:15 | EDM.PDOC ---
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 She was just discharged from [facility] this past weekend. It is unclear at this point what all happened during her stay at [facility]. [facility] apparently wants to do a Colonoscopy but the patient has been too dehydrated and malnurished to undergo the Colonoscopy. She denies any other symptoms. She is currently getting IVF infusion during this interview. Duration: Chronic Abdominal Pain Score (Numeric/FACES): 8 - Related Data Allergies Allergy/AdvReac Type Severity Reaction Status Date / Time codeine Allergy Severe Anaphylactic Verified 02/20/19 10:57 Shock Penicillins Allergy Severe Anaphylactic Verified 02/20/19 10:57 Shock propoxyphene Allergy Severe Anaphylactic Verified 02/20/19 10:57 [From Darvocet-N] Shock lactose AdvReac Diarrhea Verified 02/20/19 10:57 metoclopramide [From Reglan] AdvReac Stomach Verified 02/20/19 10:57 Ache morphine AdvReac Headache Verified 02/20/19 10:57 Home Meds: Home Meds Dicyclomine [Bentyl] 10 mg PO QID 05/03/18 [History] Ondansetron HCl [Ondansetron] 8 mg PO TID PRN 05/03/18 [History] Ranitidine HCl [Ranitidine] 150 mg PO BEDTIME 05/03/18 [History] Vit Calc,Iron,Folic [ Vitamins] 1 tab PO DAILY 05/23/18 [ History] Bethanechol [Urecholine] 25 mg PO TID 09/01/18 [History] Lactobacillus Rhamnosus GG [Culturelle] 1 cap PO DAILY 09/01/18 [History] Acetaminophen [Tylenol Extra Strength] 1,000 mg PO TID PRN 11/23/18 [History] Amitriptyline [Elavil] 50 mg PO BEDTIME 11/23/18 [History] Cod Liver Oil/Zinc Oxide [Desitin Diaper Rash 40% Paste] 1 appful TOP Q2H PRN [History] Dronabinol [Marinol] 5 mg PO BIDAC 11/23/18 [History] Gabapentin [Neurontin] 200 mg PO TID 11/23/18 [History] HYDROmorphone [Dilaudid] 2 mg PO Q4H PRN 11/23/18 [History] Hydrocortisone [Anusol-HC] 1 appful RC TID PRN 11/23/18 [History] Melatonin 6 mg PO BEDTIME 11/23/18 [History] Metoclopramide [Reglan] 5 mg PO QID 11/23/18 [History] Mirtazapine [Remeron] 15 mg PO BEDTIME 11/23/18 [History] Omeprazole Magnesium [Prilosec Otc] 40 mg PO BIDAC 11/23/18 [History] Promethazine [Phenergan] 25 mg PO Q6H PRN 11/23/18 [History] Simethicone 80 mg PO QID PRN 11/23/18 [History] Sulfamethoxazole/Trimethoprim [Bactrim Ds Tablet] 1 tab PO MOWEFR@08 11/23/18 [ History] traZODone HCl [Trazodone HCl] 50 mg PO BEDTIME 11/23/18 [History] Ondansetron [Zofran] 4 mg IVPUSH Q6H PRN vial 12/04/18 [Rx] diphenhydrAMINE [Benadryl] 25 mg PO Q6H PRN cap 12/04/18 [Rx] Past Medical History HEENT History: Reports: None Cardiovascular History: Reports: None Respiratory History: Reports: None Gastrointestinal History: Reports: Inflammatory Bowel Disease Other Gastrointestinal History: crohn's disease. 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 Musculoskeletal History: Reports: Back Pain, Chronic Neurological History: Reports: None Psychiatric History: Reports: None Endocrine/Metabolic History: Reports: None Hematologic History: Reports: Anemia Immunologic History: Reports: None Oncologic (Cancer) History: Reports: None Dermatologic History: Reports: None - Infectious Disease History Infectious Disease History: Reports: C-Difficile, Chicken Pox - Past Surgical History GI Surgical History: Reports: Appendectomy, Cholecystectomy, Colonoscopy, Other (See Below) Other GI Surgeries/Procedures: partial sigmoidectomy Social & Family History - Family History Family Medical History: Noncontributory Neurological: Reports: Parkinson's Oncologic: Reports: Brain, Liver - Tobacco Use Smoking Status *Q: Never Smoker - Caffeine Use Caffeine Use: Reports: None - Living Situation & Occupation Living situation: Reports: , with Significant Other (from [place] but staying with her daughter in [place]) 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 Denies: Vomiting Skin: Reports: No Symptoms Neurological: Reports: No Symptoms ED EXAM, GI/ABD - Physical Exam Exam: See Below Exam Limited By: No Limitations General Appearance: Alert, No Apparent Distress Respiratory/Chest: No Respiratory Distress, Lungs Clear, Normal Breath Sounds Cardiovascular: Normal Peripheral Pulses, Regular Rate, Rhythm GI/Abdominal Exam: Soft, Tender, Abnormal Bowel Sounds (Hypoactive) Neurological: Alert, Oriented Skin Exam: Warm, Dry, Intact, Normal Color Course - Vital Signs Last Recorded V/S: Last Vital Signs Temp 36.8 C 02/20/19 10:50 Pulse 121 H 02/20/19 10:50 Resp 18 02/20/19 10:50 BP 109/73 02/20/19 10:50 Pulse Ox 99 02/20/19 10:50 - Orders/Labs/Meds Orders: Active Orders 24 hr Category Date Time Status Potassium Chloride Riders [KCL 20 MEQ in Water 50 ML] Med 02/20/19 11:59 Active 20 meq Premix Bag 1 bag IV ONETIME Sodium Chloride 0.9% [Normal Saline] 1,000 ml Med 02/20/19 12:00 Active IV ASDIRECTED Medication Orders Potassium Chloride 20 meq/ (Premix) 50 mls @ 50 mls/hr IV ONETIME ONE Stop: 02/20/19 12:58 Last Admin: 02/20/19 12:11 Dose: 50 mls/hr Sodium Chloride (Normal Saline) 1,000 mls @ 400 mls/hr IV ASDIRECTED MARY Last Admin: 02/20/19 12:09 Dose: 400 mls/hr Labs: Laboratory Tests 02/20/19 02/20/19 Range/Units 10:50 10:50 WBC 17.6 H (4.0-10.0) x10^3/uL RBC 4.30 (4.00-5.50) x10^6/uL Hgb 12.9 (12.0-16.0) g/dL Hct 40.1 (33.0-47.0) % MCV 93.3 H (78.0-93.0) fL MCH 30.0 (26.0-32.0) pg MCHC 32.2 (32.0-36.0) g/dL RDW Coeff of Brianda 13.9 (10.0-15.0) % Plt Count 683 H D (130-400) x10^3/uL Add Manual Diff Yes Neutrophils % (Manual) 89 H (50-80) % Band Neutrophils % 2 (0-6) % Lymphocytes % (Manual) 3 L (25-50) % Reactive Lymphs % 1 H (0) % Monocytes % (Manual) 5 (2-11) % Hypersegmented Neuts Rare H Vacuolated Monocytes Rare Toxic Granulation 1+ slight H Platelet Estimate Increased H Macrocytosis 1+ slight H Sodium 132 L (136-145) mmol/L Potassium 3.2 L (3.5-5.1) mmol/L Chloride 92 L (98-107) mmol/L Carbon Dioxide 26 (21-32) mmol/L Anion Gap 17.2 (10-20) mmol/L BUN 29 H (7-18) mg/dL Creatinine 1.8 H (0.55-1.02) mg/dL Est Cr Clr Drug Dosing 24.33 mL/min Estimated GFR (MDRD) 30 Glucose 113 H (74-106) mg/dL Calcium 9.5 (8.5-10.1) mg/dL Meds: Medications Generic Name Dose Route Start Last Admin Trade Name Freq PRN Reason Stop Dose Admin Potassium Chloride 20 meq/ 50 mls @ 50 mls/hr 02/20/19 11:59 02/20/19 12:11 Premix IV 02/20/19 12:58 50 mls/hr ONETIME ONE Administration Sodium Chloride 1,000 mls @ 400 mls/hr 02/20/19 12:00 02/20/19 12:09 Normal Saline IV 400 mls/hr ASDIRECTED MARY Administration Discontinued Medications Generic Name Dose Route Start Last Admin Trade Name Jocelyn PRN Reason Stop Dose Admin Hydromorphone HCl 1 mg 02/20/19 11:11 02/20/19 11:22 Dilaudid IVPUSH 02/20/19 11:12 1 mg ONETIME ONE Administration Hydromorphone HCl 1 mg 02/20/19 12:23 02/20/19 12:30 Dilaudid IVPUSH 02/20/19 12:24 1 mg ONETIME ONE Administration Ondansetron HCl 4 mg 02/20/19 12:23 02/20/19 12:32 Zofran IVPUSH 02/20/19 12:24 4 mg ONETIME ONE Administration Departure - Departure Time of Disposition: 12:44 Disposition: Home, Self-Care 01 Condition: Good Clinical Impression: Hypokalemia, Dehydration, Nausea Abdominal pain Qualifiers: Abdominal location: generalized Qualified Code(s): R10.84 - Generalized abdominal pain - Discharge Information *PRESCRIPTION DRUG MONITORING PROGRAM REVIEWED*: Not Applicable *COPY OF PRESCRIPTION DRUG MONITORING REPORT IN PATIENT CHELSEY: Not Applicable Instructions: Nausea and Vomiting, Adult, Hypokalemia, Abdominal Pain, Adult Referrals: Xiomy Oliva MD [Primary Care Provider] - Forms: ED Department Discharge Additional Instructions: 1. Follow up with Dr. Oliva this week for a [place] visit and ER follow up visit - Problem List Review Problem List Initiated/Reviewed/Updated: Yes - My Orders Last 24 Hours: My Active Orders 02/20/19 11:59 Potassium Chloride Riders [KCL 20 MEQ in Water 50 ML] 20 meq Premix Bag 1 bag IV ONETIME 02/20/19 12:00 Sodium Chloride 0.9% [Normal Saline] 1,000 ml IV ASDIRECTED - Assessment/Plan Last 24 Hours: My Active Orders 02/20/19 11:59 Potassium Chloride Riders [KCL 20 MEQ in Water 50 ML] 20 meq Premix Bag 1 bag IV ONETIME 02/20/19 12:00 Sodium Chloride 0.9% [Normal Saline] 1,000 ml IV ASDIRECTED Assessment:: Chronic Abd Pain Hypokalemia Chronic Pain Syndrome Nausea Plan: Patient was given the ordered medications in AC. Symptoms much improved. Will have patient follow up with PCP as she missed her last appt.
[2019-02-20 11:20] LABS: ANION GAP 17.2 mmol/L (10-20)
[2019-02-20] MEDS ORDERED: Potassium Chloride Riders 20 MEQ in Premix Bag 1 BAG IV ONE (11:59)
[2019-02-20] MEDS ORDERED: Sodium Chloride 0.9% 1,000 ML IV SCH (12:00)
[2019-02-20] MEDS ORDERED: Ondansetron 4 MG/2 ML SDV IVPUSH ONE (12:23)
[2019-02-20] MEDS ORDERED: Sodium Chloride 0.9% 10 ML Syringe FLUSH SCH (14:30)
== END 2019-02-20 14:25 | disposition home or self-care (01) ==
LOC: VM.ED 10:41
DX: E86.0 Dehydration (principal); E87.6 Hypokalemia; R10.84 Generalized abdominal pain; G89.4 Chronic pain syndrome; R11.2 Nausea with vomiting, unspecified; N18.9 Chronic kidney disease, unspecified; Z88.5 Allergy status to narcotic agent; Z88.8 Allergy status to other drugs, medicaments and biological substances; Z79.899 Other long term (current) drug therapy
CPT/HCPCS: 80048; 85025; 96365; 96366; 96375; 96376; 99284-25; J1170; J1642; J2405; J3480; J7030

== ENCOUNTER 2019-02-22 12:29 | Inpatient (IN) | payer BC, OTHER ==
[2019-02-22] MEDS ORDERED: Prochlorperazine 10 MG/2 ML SDV IV ONE (13:27)
[2019-02-22] MEDS ORDERED: diphenhydrAMINE 50 MG/ML SDV IVPUSH ONE (13:27)
[2019-02-22] MEDS ORDERED: HYDROmorphone 1 MG/ML Syringe IVPUSH ONE (13:27)
[2019-02-22] MEDS ORDERED: Lidocaine/Prilocaine 2.5-2.5% Crm 5 GM Tube TOP PRN (13:32)
[2019-02-22] MEDS ORDERED: Simethicone 80 MG Tab.Chew PO PRN (13:32)
[2019-02-22] MEDS: Lactated Ringers 1,000 ML IV SCH (14:13)
--- NOTE | 2019-02-22 14:28 | PCM.HP ---
H&P History of Present Illness - General Date of Service: 02/22/19 Admit Problem/Dx: Admission Diagnosis/Problem Admission Diagnosis/Problem Dehydration Source of Information: Patient History Limitations: Reports: No Limitations - History of Present Illness Initial Comments - Free Text/Narative: Mrs. Cota is a 44 yo female who presented to clinic today for follow-up and was noted to have increased symptoms of abdominal pain, nausea, vomiting, and diarrhea over the past 5 days. She has a PMH notable for Crohn's disease resulting in significant chronic abdominal pain, chronic nausea, and intermittent vomiting. She has been hospitalized recurrently over the past few months related to these symptoms and inability to keep up hydration by mouth resulting in dehydration and acute kidney injury. She was down at [facility] last week for further evaluation related to her Crohn's. She got a good report from her colonoscopy in terms of her Crohn's but they did take extensive biopsies related to precancerous changes seen on her last biopsies there; she is still waiting to hear on those results. They had not recommended any medication changes or changes to her care plan at all really. On the day she was to leave to return home, she started having significantly more nausea than usual. She has been vomiting >5 times/day and has not been able to keep much down in terms of fluids or food. She has also had increased abdominal pain described as generalized cramping and sharp pains at times. She has been having >10 loose bowel movements every day, all of which have contained streaks of bright red blood. She has been trying to drink fluids but has not had much success keeping this down. She is on reglan, zofran, and phenergan for her nausea without much relief in symptoms. She is also on benadryl and robinul for this as well. She was encouraged to consider trying CBD for her symptoms by her [facility] providers and did start taking this last week as well. She otherwise has not recently had any medication changes. She did take some dilaudid yesterday for pain but has tried to limit this as much as possible. She got IV fluids in the ER yesterday and did get some compazine and benadryl along with this with some relief in symptoms but only very temporarily. She has had low grade fevers as well but no temperatures >100.4. ROS is otherwise negative. She has notified [facility] of her symptoms and they were not sure what would be causing this since her test results were coming back good. She has been feeling increasingly weak over the past few days and has also noticed that she is not voiding as often. When she does void, it is less in amount and is darker in color. Bilateral Abdominal Pain Score (Numeric/FACES): 8 - Related Data Allergies/Adverse Reactions: Allergies Allergy/AdvReac Type Severity Reaction Status Date / Time codeine Allergy Severe Anaphylactic Verified 02/20/19 10:57 Shock Penicillins Allergy Severe Anaphylactic Verified 02/20/19 10:57 Shock propoxyphene Allergy Severe Anaphylactic Verified 02/20/19 10:57 [From Darvocet-N] Shock lactose AdvReac Diarrhea Verified 02/20/19 10:57 metoclopramide [From Reglan] AdvReac Stomach Verified 02/20/19 10:57 Ache morphine AdvReac Headache Verified 02/20/19 10:57 Home Medications: Home Meds Dicyclomine [Bentyl] 10 mg PO QID 05/03/18 [History] Ondansetron HCl [Ondansetron] 8 mg PO TID PRN 05/03/18 [History] Ranitidine HCl [Ranitidine] 150 mg PO BEDTIME 05/03/18 [History] Lactobacillus Rhamnosus GG [Culturelle] 1 cap PO DAILY 09/01/18 [History] Acetaminophen [Tylenol Extra Strength] 1,000 mg PO TID PRN 11/23/18 [History] Amitriptyline [Elavil] 50 mg PO BEDTIME 11/23/18 [History] Cod Liver Oil/Zinc Oxide [Desitin Diaper Rash 40% Paste] 1 appful TOP Q2H PRN [History] Dronabinol [Marinol] 5 mg PO BIDAC 11/23/18 [History] Gabapentin [Neurontin] 300 mg PO TID 11/23/18 [History] HYDROmorphone [Dilaudid] 2 mg PO Q4H PRN 11/23/18 [History] Hydrocortisone [Anusol-HC] 1 appful RC QID PRN 11/23/18 [History] Melatonin 6 mg PO BEDTIME 11/23/18 [History] Mirtazapine [Remeron] 15 mg PO BEDTIME 11/23/18 [History] Omeprazole Magnesium [Prilosec Otc] 40 mg PO BIDAC 11/23/18 [History] Promethazine [Phenergan] 25 mg PO TID 11/23/18 [History] Simethicone 80 mg PO QID PRN 11/23/18 [History] Sulfamethoxazole/Trimethoprim [Bactrim Ds Tablet] 1 tab PO MOWEFR@08 11/23/18 [ History] traZODone HCl [Trazodone HCl] 50 mg PO BEDTIME 11/23/18 [History] Ondansetron [Zofran] 4 mg IVPUSH Q6H PRN vial 12/04/18 [Rx] diphenhydrAMINE [Benadryl] 25 mg PO Q6H PRN cap 12/04/18 [Rx] Amylase/Lipase/Protease [Creon DR 24,000 Unit] 1 cap PO TIDMEALS 02/22/19 [ History] Clindamycin HCl [Cleocin] 150 mg PO DAILY 02/22/19 [History] Cyclobenzaprine [Flexeril] 5 mg PO TID PRN 02/22/19 [History] Diazepam [Valium] 2 mg PO TID PRN 02/22/19 [History] Lidocaine/Prilocaine [EMLA Crm] 5 gm TP DAILY PRN 02/22/19 [History] Potassium Chloride 20 meq PO DAILY 02/22/19 [History] Sertraline [Zoloft] 25 mg PO DAILY 02/22/19 [History] Vancomycin [Vancomycin 50 MG/ML Soln] 250 ml PO QID 02/22/19 [History] azaTHIOprine [Imuran] 50 mg PO DAILY 02/22/19 [History] predniSONE [Prednisone] 20 mg PO DAILY 02/22/19 [History] Past Medical History HEENT History: Reports: None Cardiovascular History: Reports: None Respiratory History: Reports: None Gastrointestinal History: Reports: GERD, Inflammatory Bowel Disease Other Gastrointestinal History: crohn's disease. colitis Genitourinary History: Reports: Acute Renal Failure, Chronic Renal Insuffiency [employer] History: Reports: None Musculoskeletal History: Reports: Back Pain, Chronic Neurological History: Reports: None Psychiatric History: Reports: Anxiety Endocrine/Metabolic History: Reports: None Hematologic History: Reports: Anemia Immunologic History: Reports: Immunosuppression Oncologic (Cancer) History: Reports: None Dermatologic History: Reports: None - Infectious Disease History Infectious Disease History: Reports: C-Difficile - Past Surgical History GI Surgical History: Reports: Appendectomy, Cholecystectomy, Colonoscopy, Other (See Below) Other GI Surgeries/Procedures: partial sigmoidectomy Social & Family History - Family History Neurological: Reports: Parkinson's Oncologic: Reports: Brain, Liver - Tobacco Use Smoking Status *Q: Never Smoker Second Hand Smoke Exposure: No - Caffeine Use Caffeine Use: Reports: Coffee - Alcohol Use Alcohol Use History: No Alcohol Use in Last Twelve Months: No - Recreational Drug Use Recreational Drug Use: No - Living Situation & Occupation Living situation: Reports: , with Significant Other (from [place] but staying with her daughter in [place]) 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) H&P Review of Systems - Review of Systems: Review Of Systems: See Below General: Reports: Weakness, Decreased Appetite, Weight Loss HEENT: Reports: No Symptoms Pulmonary: Reports: No Symptoms Cardiovascular: Reports: No Symptoms Gastrointestinal: Reports: Abdominal Pain, Diarrhea, Nausea, Vomiting Genitourinary: Reports: No Symptoms Musculoskeletal: Reports: No Symptoms Skin: Reports: No Symptoms Psychiatric: Reports: No Symptoms Neurological: Reports: No Symptoms Exam - Exam Exam: See Below - Vital Signs Vital Signs: Last Vital Signs Temp 37.2 C 02/22/19 12:32 Pulse 72 02/22/19 12:32 Resp 16 02/22/19 12:32 BP 106/69 02/22/19 12:32 Pulse Ox 99 02/22/19 13:25 Weight: 39.009 kg - Exam General: Alert, Cooperative HEENT: Conjunctiva Clear, Mucosa Moist & [place], Posterior Pharynx Clear, Pupils Equal, Pupils Reactive, TMs Clear Neck: Supple, Trachea Midline. No: Lymphadenopathy, Thyromegaly Lungs: Clear to Auscultation, Normal Respiratory Effort Cardiovascular: Regular Rate, Regular Rhythm, Normal S1, Normal S2 GI/Abdominal Exam: Soft, No Organomegaly, No Distention, No Mass, Tender ( diffusely but most in the RLQ and LUQ; no rebound, rigidity, or guarding), Abnormal Bowel Sounds (hyperactive throughout) Extremities: Non-Tender, No Pedal Edema, Normal Capillary Refill Peripheral Pulses: 2+: Radial (L), Radial (R) Skin: Warm, Dry, Intact *Q Meaningful Use (ADM) - VTE *Q VTE Anticoagulation Contraindications: Med/TX Not Indicated/Need - Problem List (1) Dehydration SNOMED Code(s): 75152109 ICD Code: E86.0 - DEHYDRATION Status: Acute Current Visit: No (2) CHARIS (acute kidney injury) SNOMED Code(s): 94108004 ICD Code: N17.9 - ACUTE KIDNEY FAILURE, UNSPECIFIED Status: Acute Current Visit: No (3) Chronic kidney disease SNOMED Code(s): 791894351 ICD Code: N18.9 - CHRONIC KIDNEY DISEASE, UNSPECIFIED Status: Chronic Current Visit: No Qualifiers: Chronic kidney disease stage: stage 3 (moderate) Qualified Code(s): N18.3 - Chronic kidney disease, stage 3 (moderate) (4) Hyponatremia SNOMED Code(s): 18734211 ICD Code: E87.1 - HYPO-OSMOLALITY AND HYPONATREMIA Status: Acute Priority : Medium Current Visit: No (5) Hypokalemia SNOMED Code(s): 77425728 ICD Code: E87.6 - HYPOKALEMIA Status: Chronic Priority: Medium Current Visit: No (6) Chronic abdominal pain SNOMED Code(s): 200386162 ICD Code: R10.9 - UNSPECIFIED ABDOMINAL PAIN; G89.29 - OTHER CHRONIC PAIN Status: Chronic Priority: Medium Current Visit: No (7) Crohns disease SNOMED Code(s): 30461096 ICD Code: K50.90 - CROHN'S DISEASE, UNSPECIFIED, WITHOUT COMPLICATIONS Status: Chronic Current Visit: No Qualifiers: Gastrointestinal tract location: unspecified location Digestive disease complication type: unspecified complication Qualified Code(s): K50.919 - Crohn 's disease, unspecified, with unspecified complications (8) Nausea & vomiting SNOMED Code(s): 94543591 ICD Code: R11.2 - NAUSEA WITH VOMITING, UNSPECIFIED Status: Chronic Priority: Medium Current Visit: No Qualifiers: Vomiting type: unspecified Vomiting Intractability: non-intractable Qualified Code(s): R11.2 - Nausea with vomiting, unspecified (9) Severe malnutrition SNOMED Code(s): 34584902 ICD Code: E43 - UNSPECIFIED SEVERE PROTEIN-CALORIE MALNUTRITION Status: Chronic Current Visit: No (10) Anxiety SNOMED Code(s): 44575830 ICD Code: F41.9 - ANXIETY DISORDER, UNSPECIFIED Status: Chronic Current Visit: No Problem List Initiated/Reviewed/Updated: Yes Orders Last 24hrs: Active Orders 24 hr Category Date Time Status Patient Status [ADT] Routine ADT 02/22/19 13:25 Active Notify Provider Vital Signs [RC] 02,06,10,14,18,22 Care 02/22/19 13:25 Active Oxygen Therapy [RC] .PRN Care 02/22/19 13:25 Active Up With Assistance [RC] 08,20 Care 02/22/19 13:25 Active Vital Signs [RC] 02,06,10,14,18,22 Care 02/22/19 13:25 Active Regular Diet [DIET] Diet 02/22/19 Dinner Active BASIC METABOLIC PANEL,BMP [CHEM] Routine Lab 02/23/19 05:11 Ordered CBC WITH AUTO DIFF [HEME] Routine Lab 02/23/19 05:11 Ordered MAGNESIUM [CHEM] Routine Lab 02/23/19 05:11 Ordered Acetaminophen [Tylenol Extra Strength] Med 02/22/19 13:32 Active 1,000 mg PO TID PRN Amitriptyline [Elavil] Med 02/22/19 20:00 Active 50 mg PO BEDTIME Amylase/Lipase/Protease. Med 02/22/19 18:00 Active 1 dose PO TIDMEALS Cyclobenzaprine [Flexeril] Med 02/22/19 13:32 Active 5 mg PO TID PRN Dicyclomine [Bentyl] Med 02/22/19 16:00 Active 10 mg PO QIDACANDBED Dronabinol [Marinol] Med 02/22/19 17:00 Ordered 5 mg PO BIDAC Famotidine [Pepcid] Med 02/22/19 20:00 Active 20 mg PO BEDTIME Gabapentin [Neurontin] Med 02/22/19 20:00 Active 300 mg PO TID HYDROmorphone [Dilaudid] Med 02/22/19 17:30 Ordered 0.25 mg IVPUSH Q4H PRN Lactated Ringers [Ringers, Lactated] 1,000 ml Med 02/22/19 13:30 Active IV ASDIRECTED Lactobacillus Rhamnosus GG [Culturelle] Med 02/23/19 08:00 Active 1 cap PO DAILY Lidocaine/Prilocaine [EMLA Crm] Med 02/22/19 13:32 Active 0 gm TOP DAILY PRN Melatonin Med 02/22/19 20:00 Active 6 mg PO BEDTIME Mirtazapine [Remeron] Med 02/22/19 20:00 Active 15 mg PO BEDTIME Omeprazole Med 02/22/19 17:00 Active 40 mg PO BIDAC Ondansetron [Zofran ODT] Med 02/22/19 13:32 Active 8 mg PO TID PRN Potassium Chloride [Klor-Con] Med 02/23/19 08:00 Active 20 meq PO DAILY Prochlorperazine [Compazine] Med 02/22/19 19:30 Active 5 mg IV Q6H PRN Sertraline [Zoloft] Med 02/23/19 08:00 Active 25 mg PO DAILY Simethicone Med 02/22/19 13:32 Active 80 mg PO QID PRN Vancomycin [Vancocin 125 MG/2.5 ML Soln] Med 02/22/19 16:00 Active 250 mg PO QID Zinc Oxide Med 02/22/19 13:32 Active 0 gm TOP Q2H PRN azaTHIOprine [Imuran] Med 02/23/19 08:00 Active 50 mg PO DAILY diphenhydrAMINE [Benadryl] Med 02/22/19 19:30 Active 25 mg PO Q6H PRN methylPREDNISolone Sod Succ [Solu-MEDROL] Med 02/22/19 18:00 Active 40 mg IVPUSH Q12H traZODone Med 02/22/19 20:00 Active 50 mg PO BEDTIME Anticoagulation Contraindications VTE [AST] Per Unit Oth 02/22/19 13:25 Ordered Routine Resuscitation Status Routine Resus Stat 02/22/19 13:25 Ordered Medication Orders Acetaminophen (Tylenol Extra Strength) 1,000 mg PO TID PRN PRN Reason: Pain Amitriptyline HCl (Elavil) 50 mg PO BEDTIME MARY Azathioprine (Imuran) 50 mg PO DAILY MARY Cyclobenzaprine HCl (Flexeril) 5 mg PO TID PRN PRN Reason: Pain Dicyclomine HCl (Bentyl) 10 mg PO QIDACANDBED MARY Diphenhydramine HCl (Benadryl) 25 mg PO Q6H PRN PRN Reason: Nausea Famotidine (Pepcid) 20 mg PO BEDTIME MARY Gabapentin (Neurontin) 300 mg PO TID MARY Hydromorphone HCl (Dilaudid) 0.25 mg IVPUSH Q4H PRN PRN Reason: Pain Lactated Ringer's (Ringers, Lactated) 1,000 mls @ 100 mls/hr IV ASDIRECTED [facility] Last Admin: 02/22/19 14:13 Dose: 100 mls/hr Lactobacillus Rhamnosus (Culturelle) 1 cap PO DAILY [facility] Lidocaine/Prilocaine (Emla Crm) 0 gm TOP DAILY PRN PRN Reason: [place] Access Melatonin (Melatonin) 6 mg PO BEDTIME [facility] Methylprednisolone Sodium Succinate (Solu-Medrol) 40 mg IVPUSH Q12H [facility] Mirtazapine (Remeron) 15 mg PO BEDTIME [facility] Multi-Ingred Cream/Lotion/Oil/Oint (Zinc Oxide) 0 gm TOP Q2H PRN PRN Reason: Rash Dronabinol [Marinol] (5mg (Own Supply)) 0 mg PO BIDAC [facility] Amylase/Lipase/Protease. ([employer]) 1 dose PO TIDMEALS [facility] Omeprazole (Omeprazole) 40 mg PO BIDAC [facility] Ondansetron HCl (Zofran Odt) 8 mg PO TID PRN PRN Reason: Nausea Potassium Chloride (Klor-Con) 20 meq PO DAILY [facility] Prochlorperazine Edisylate (Compazine) 5 mg IV Q6H PRN PRN Reason: Nausea Sertraline HCl (Zoloft) 25 mg PO DAILY [facility] Simethicone (Simethicone) 80 mg PO QID PRN PRN Reason: Gas Trazodone HCl (Trazodone) 50 mg PO BEDTIME [facility] Vancomycin HCl (Vancocin 125 Mg/2.5 Ml Soln) 250 mg PO QID [facility] Assessment/Plan Comment:: #1 Dehydration #2 Acute Kidney Injury, secondary to #1 #3 Chronic Kidney Disease, stage III, secondary to recurrent CHARIS #4 Hyponatremia, secondary to #1 - Given significant increase in creatinine from 2 days ago as well as her ongoing vomiting and diarrhea despite home cares, it was felt unlikely she would be able to rehydrate orally. - Therefore, hospital admission was discussed/recommended and she was in agreement. - She has done better with slow IV infusions rather than any bolusing; therefore , will do 100 cc/hr until lab results available in the morning. - Hyponatremia is mild and there is little risk of correcting this too fast. - She can eat and drink ad keon as well. - She will be seeing nephrology in March related to recurrent CHARIS in the setting of CKD. - Will continue plan for daily IV fluids through the ER upon discharge until she is able to better maintain hydration by mouth. #5 Hypokalemia - K actually normal today. - Will continue oral potassium supplements. #6 Chronic Abdominal Pain #7 Crohn's Disease #8 Nausea and vomiting - Will do IV dilaudid overnight for pain and hopefully transition back to PO as of tomorrow. - Continue tylenol as well. - Her home robinul and zofran will be continued. - Unclear whether the combination of the CBD and robinul could be part of the issue; therefore, will hold the CBD for now. - She will have IV compazine available and we will do a 1 time dose of IV benadryl as well followed by PRN PO benadryl thereafter. - Hopefully, we will get her transitioned to PO medications only tomorrow. - Given report of bloody stools, will hold PO prednisone and do IV solu-medrol instead. - Continue other home medications with the exception of phenergan (QTc prolongation risk with already being on zofran, amitriptyline, and compazine), clindamycin (unclear why she is on this but that is relatively contraindicated given h/o recurrent c. difficile), and bactrim (she is not supposed to be on this anymore and is getting pentamidine through [facility] instead). #9 Severe Malnutrition - Not currently using her feeding tube and is attempting to maintain nutrition with food intake by mouth. - She is currently keeping a food diary. - She will be on a regular diet during her admission. #10 Anxiety - Continue home medications. Patient will be admitted to observation. Hopefully she will be prepared for dismissal home before the weekend. If not, then we will reassess whether she needs transfer to [facility] or not. See details under problems above. Code status is full - discussed on admission. Pharmacologic VTE prophylaxis contraindicated given report of bright red rectal bleeding. She can be up and ambulating as able.
[2019-02-22] MEDS ORDERED: Vancomycin 1 GM SDV PO SCH (16:00)
[2019-02-22] MEDS: Vancomycin 125 MG/2.5 ML Oral Solution 2.5 ML UD Cup PO SCH ×2 (16:03→19:38)
[2019-02-22] MEDS: Omeprazole 20 MG Cap.CR PO SCH (17:26)
[2019-02-22] MEDS: HYDROmorphone 1 MG/ML Syringe IVPUSH PRN ×2 (17:26→21:59)
[2019-02-22] MEDS: Dicyclomine 10 MG Cap PO SCH ×2 (17:26→19:37)
[2019-02-22] MEDS: methylPREDNISolone Sodium Succinate 40 MG/1 ML SDV IVPUSH SCH (17:26)
[2019-02-22] MEDS: LIPASE PO SCH (17:59)
[2019-02-22] MEDS: AMYLASE PO SCH (17:59)
[2019-02-22] MEDS: PROTEASE PO SCH (17:59)
[2019-02-22] MEDS ORDERED: Amylase/Lipase/Protease 10,000 Unit Cap.CR PO SCH (18:00)
[2019-02-22] MEDS ORDERED: Prochlorperazine 10 MG/2 ML SDV IV PRN (18:48)
[2019-02-22] MEDS: Prochlorperazine 10 MG/2 ML SDV IV PRN (18:55)
[2019-02-22] MEDS: traZODone 50 MG Tab PO SCH (19:34)
[2019-02-22] MEDS: Melatonin 3 MG Tab PO SCH (19:37)
[2019-02-22] MEDS: Amitriptyline 25 MG Tab PO SCH (19:38)
[2019-02-22] MEDS: Famotidine 20 MG Tab PO SCH (19:38)
[2019-02-22] MEDS: Mirtazapine 15 MG Tab PO SCH (19:43)
[2019-02-22] MEDS: Gabapentin 300 MG Cap PO SCH (19:43)
[2019-02-23] MEDS: Lactated Ringers 1,000 ML IV SCH (00:27)
[2019-02-23] MEDS: Prochlorperazine 10 MG/2 ML SDV IV PRN ×4 (00:27→22:31)
[2019-02-23] MEDS: HYDROmorphone 1 MG/ML Syringe IVPUSH PRN ×5 (02:32→22:31)
[2019-02-23] MEDS: Ondansetron 4 MG Tab.DIS PO PRN ×3 (02:35→20:01)
[2019-02-23] MEDS: methylPREDNISolone Sodium Succinate 40 MG/1 ML SDV IVPUSH SCH ×2 (05:42→17:11)
[2019-02-23] MEDS: Omeprazole 20 MG Cap.CR PO SCH ×3 (05:43→17:12)
[2019-02-23] MEDS: Dicyclomine 10 MG Cap PO SCH ×4 (06:44→20:04)
[2019-02-23 07:22] LABS: ANION GAP 15.3 mmol/L (10-20)
[2019-02-23] MEDS: Vancomycin 125 MG/2.5 ML Oral Solution 2.5 ML UD Cup PO SCH ×4 (07:30→20:02)
[2019-02-23] MEDS: Gabapentin 300 MG Cap PO SCH ×3 (07:31→20:02)
[2019-02-23] MEDS: Potassium Chloride 20 MEQ Packet PO SCH (07:31)
[2019-02-23] MEDS: Sertraline 25 MG Tab PO SCH (07:31)
[2019-02-23] MEDS: Lactobacillus Rhamnosus GG (Probiotic) Cap PO SCH (07:31)
[2019-02-23] MEDS: PROTEASE PO SCH ×3 (09:17→17:11)
[2019-02-23] MEDS: AMYLASE PO SCH ×3 (09:17→17:11)
[2019-02-23] MEDS: LIPASE PO SCH ×3 (09:17→17:11)
--- NOTE | 2019-02-23 09:41 | PCM.PN ---
- General Info Date of Service: 02/23/19 Subjective Update: 44 yo female admitted with dehydration and CHARIS secondary to acute on chronic abdominal pain, nausea, and vomiting related to underlying Crohn's disease. She slept well. She notes that her nausea at baseline has improved somewhat but she is still not able to keep much down when she tries to eat or drink anything. Her pain control is improved and she describes her pain as "tolerable " now. She has not had any fever or chills. She tried to eat cream of wheat and toast without success. Water is staying down off and on. Energy level and strength are about the same as yesterday. Still having frequent stools but blood is lessening. - Review of Systems General: Reports: No Symptoms HEENT: Reports: No Symptoms Pulmonary: Reports: No Symptoms Cardiovascular: Reports: No Symptoms Gastrointestinal: Reports: Abdominal Pain, Diarrhea, Nausea, Vomiting Genitourinary: Reports: No Symptoms Musculoskeletal: Reports: No Symptoms Skin: Reports: No Symptoms Neurological: Reports: No Symptoms - Patient Data Vitals - Most Recent: Last Vital Signs Temp 36.3 C 02/23/19 06:00 Pulse 78 02/23/19 06:00 Resp 16 02/23/19 06:00 BP 101/60 02/23/19 06:00 Pulse Ox 99 02/23/19 06:00 Weight - Most Recent: 39.009 kg I&O - Last 24 Hours: Intake & Output 02/22/19 02/23/19 02/23/19 22:59 06:59 14:59 Intake Total 120 300 240 Output Total 100 200 Balance 20 100 240 Lab Results Last 24 Hours: Laboratory Results - last 24 hr 02/23/19 02/23/19 Range/Units 06:15 06:15 WBC 7.3 (4.0-10.0) x10^3/uL RBC 3.21 L (4.00-5.50) x10^6/uL Hgb 9.5 L D (12.0-16.0) g/dL Hct 30.1 L (33.0-47.0) % MCV 93.8 H (78.0-93.0) fL MCH 29.6 (26.0-32.0) pg MCHC 31.6 L (32.0-36.0) g/dL RDW Coeff of Brianda 13.5 (10.0-15.0) % Plt Count 523 H D (130-400) x10^3/uL Neut % (Auto) 79.7 (50.0-80.0) % Lymph % (Auto) 14.2 L (25.0-50.0) % [place] % (Auto) 6.0 (2.0-11.0) % Eos % (Auto) 0.0 (0.0-4.0) % Baso % (Auto) 0.1 L (0.2-1.2) % Sodium 141 (136-145) mmol/L Potassium 3.3 L (3.5-5.1) mmol/L Chloride 105 D (98-107) mmol/L Carbon Dioxide 24 (21-32) mmol/L Anion Gap 15.3 (10-20) mmol/L BUN 26 H (7-18) mg/dL Creatinine 1.9 H (0.55-1.02) mg/dL Est Cr Clr Drug Dosing 22.78 mL/min Estimated GFR (MDRD) 28 Glucose 107 H (74-106) mg/dL Calcium 8.2 L (8.5-10.1) mg/dL Magnesium 2.0 (1.8-2.4) mg/dL Med Orders - Current: Current Medications Acetaminophen (Tylenol Extra Strength) 1,000 mg PO TID PRN PRN Reason: Pain Amitriptyline HCl (Elavil) 50 mg PO BEDTIME [facility] Last Admin: 02/22/19 19:38 Dose: 50 mg Azathioprine (Imuran) 50 mg PO DAILY [facility] Last Admin: 02/23/19 07:31 Dose: 50 mg Cyclobenzaprine HCl (Flexeril) 5 mg PO TID PRN PRN Reason: Pain Dicyclomine HCl (Bentyl) 10 mg PO QIDACANDBED [facility] Last Admin: 02/23/19 06:44 Dose: 10 mg Diphenhydramine HCl (Benadryl) 25 mg PO Q6H PRN PRN Reason: Nausea Famotidine (Pepcid) 20 mg PO BEDTIME [facility] Last Admin: 02/22/19 19:38 Dose: 20 mg Gabapentin (Neurontin) 300 mg PO TID [facility] Last Admin: 02/23/19 07:31 Dose: 300 mg Hydromorphone HCl (Dilaudid) 0.25 mg IVPUSH Q4H PRN PRN Reason: Pain Last Admin: 02/23/19 06:45 Dose: 0.25 mg Lactobacillus Rhamnosus (Culturelle) 1 cap PO DAILY [facility] Last Admin: 02/23/19 07:31 Dose: 1 cap Lidocaine/Prilocaine (Emla Crm) 0 gm TOP DAILY PRN PRN Reason: Port Access Melatonin (Melatonin) 6 mg PO BEDTIME [facility] Last Admin: 02/22/19 19:37 Dose: 6 mg Methylprednisolone Sodium Succinate (Solu-Medrol) 40 mg IVPUSH Q12H [facility] Last Admin: 02/23/19 05:42 Dose: 40 mg Mirtazapine (Remeron) 15 mg PO BEDTIME [facility] Last Admin: 02/22/19 19:43 Dose: 15 mg Multi-Ingred Cream/Lotion/Oil/Oint (Zinc Oxide) 0 gm TOP Q2H PRN PRN Reason: Rash Dronabinol [Marinol] (5mg (Own Supply)) 0 mg PO BIDAC [facility] Last Admin: 02/23/19 06:44 Dose: Not Given Amylase/Lipase/Protease. (Own Supply) 1 dose PO TIDMEALS [facility] Last Admin: 02/23/19 09:17 Dose: Not Given Omeprazole (Omeprazole) 40 mg PO BIDAC [facility] Last Admin: 02/23/19 06:50 Dose: Not Given Ondansetron HCl (Zofran Odt) 8 mg PO TID PRN PRN Reason: Nausea Last Admin: 02/23/19 09:13 Dose: 8 mg Potassium Chloride (Klor-Con) 20 meq PO DAILY [facility] Last Admin: 02/23/19 07:31 Dose: 20 meq Prochlorperazine Edisylate (Compazine) 5 mg IV Q6H PRN PRN Reason: Nausea Last Admin: 02/23/19 06:44 Dose: 5 mg Sertraline HCl (Zoloft) 25 mg PO DAILY [facility] Last Admin: 02/23/19 07:31 Dose: 25 mg Simethicone (Simethicone) 80 mg PO QID PRN PRN Reason: Gas Trazodone HCl (Trazodone) 50 mg PO BEDTIME [facility] Last Admin: 02/22/19 19:34 Dose: 50 mg Vancomycin HCl (Vancocin 125 Mg/2.5 Ml Soln) 250 mg PO QID [facility] Last Admin: 02/23/19 07:30 Dose: 250 mg Discontinued Medications Diphenhydramine HCl (Benadryl) 25 mg IVPUSH ONETIME ONE Stop: 02/22/19 13:28 Last Admin: 02/22/19 14:03 Dose: 25 mg Hydromorphone HCl (Dilaudid) 0.25 mg IVPUSH ONETIME ONE Stop: 02/22/19 13:28 Last Admin: 02/22/19 14:03 Dose: 0.25 mg Lactated Ringer's (Ringers, Lactated) 1,000 mls @ 100 mls/hr IV ASDIRECTED [facility] Last Admin: 02/23/19 00:27 Dose: 100 mls/hr Prochlorperazine Edisylate (Compazine) 5 mg IV ONETIME ONE Stop: 02/22/19 13:28 Last Admin: 02/22/19 14:04 Dose: 5 mg Prochlorperazine Edisylate (Compazine) 5 mg IV Q4HR PRN PRN Reason: Nausea/Vomiting - Exam General: Alert, Oriented, Cooperative, No Acute Distress HEENT: Mucous Membr. Moist/[place] Neck: Supple, Trachea Midline, No Thyromegaly. No: Lymphadenopathy Lungs: Clear to Auscultation, Normal Respiratory Effort Cardiovascular: Regular Rate, Regular Rhythm, No Murmurs GI/Abdominal Exam: Normal Bowel Sounds, Soft, No Organomegaly, No Distention, No Mass, Tender (diffusely but without any rebound, rigidity, or guarding) Extremities: Non-Tender, No Pedal Edema, Normal Capillary Refill Peripheral Pulses: 2+: Radial (L), Radial (R) Skin: Warm, Dry, Intact Neurological: No New Focal Deficit - Problem List & Annotations (1) Dehydration SNOMED Code(s): 83880983 Code(s): E86.0 - DEHYDRATION Status: Acute Current Visit: No (2) CHARIS (acute kidney injury) SNOMED Code(s): 43476388 Code(s): N17.9 - ACUTE KIDNEY FAILURE, UNSPECIFIED Status: Acute Current Visit: No (3) Chronic kidney disease SNOMED Code(s): 892748939 Code(s): N18.9 - CHRONIC KIDNEY DISEASE, UNSPECIFIED Status: Chronic Current Visit: No Qualifiers: Chronic kidney disease stage: stage 3 (moderate) Qualified Code(s): N18.3 - Chronic kidney disease, stage 3 (moderate) (4) Hyponatremia SNOMED Code(s): 04711628 Code(s): E87.1 - HYPO-OSMOLALITY AND HYPONATREMIA Status: Acute Priority : Medium Current Visit: No (5) Hypokalemia SNOMED Code(s): 11665553 Code(s): E87.6 - HYPOKALEMIA Status: Chronic Priority: Medium Current Visit: No (6) Chronic abdominal pain SNOMED Code(s): 047546950 Code(s): R10.9 - UNSPECIFIED ABDOMINAL PAIN; G89.29 - OTHER CHRONIC PAIN Status: Chronic Priority: Medium Current Visit: No (7) Crohns disease SNOMED Code(s): 88918472 Code(s): K50.90 - CROHN'S DISEASE, UNSPECIFIED, WITHOUT COMPLICATIONS Status: Chronic Current Visit: No Qualifiers: Gastrointestinal tract location: unspecified location Digestive disease complication type: unspecified complication Qualified Code(s): K50.919 - Crohn 's disease, unspecified, with unspecified complications (8) Nausea & vomiting SNOMED Code(s): 74163354 Code(s): R11.2 - NAUSEA WITH VOMITING, UNSPECIFIED Status: Chronic Priority: Medium Current Visit: No Qualifiers: Vomiting type: unspecified Vomiting Intractability: non-intractable Qualified Code(s): R11.2 - Nausea with vomiting, unspecified (9) Severe malnutrition SNOMED Code(s): 61288931 Code(s): E43 - UNSPECIFIED SEVERE PROTEIN-CALORIE MALNUTRITION Status: Chronic Current Visit: No (10) Anxiety SNOMED Code(s): 98633955 Code(s): F41.9 - ANXIETY DISORDER, UNSPECIFIED Status: Chronic Current Visit: No - Problem List Review Problem List Initiated/Reviewed/Updated: Yes - My Orders Last 24 Hours: My Active Orders 02/22/19 13:25 Patient Status [ADT] Routine Notify Provider Vital Signs [RC] 02,06,10,14,18,22 Oxygen Therapy [RC] .PRN Up With Assistance [RC] 08,20 Vital Signs [RC] 02,06,10,14,18,22 Anticoagulation Contraindications VTE [AST] Per Unit Routine Resuscitation Status Routine 02/22/19 13:32 Acetaminophen [Tylenol Extra Strength] 1,000 mg PO TID PRN Cyclobenzaprine [Flexeril] 5 mg PO TID PRN Lidocaine/Prilocaine [EMLA Crm] 0 gm TOP DAILY PRN Ondansetron [Zofran ODT] 8 mg PO TID PRN Simethicone 80 mg PO QID PRN Zinc Oxide 0 gm TOP Q2H PRN 02/22/19 16:00 Vancomycin [Vancocin 125 MG/2.5 ML Soln] 250 mg PO QID 02/22/19 17:00 Dicyclomine [Bentyl] 10 mg PO QIDACANDBED Dronabinol [Marinol] 0 mg PO BIDAC Omeprazole 40 mg PO BIDAC 02/22/19 17:30 HYDROmorphone [Dilaudid] 0.25 mg IVPUSH Q4H PRN 02/22/19 18:00 Amylase/Lipase/Protease. 1 dose PO TIDMEALS methylPREDNISolone Sod Succ [Solu-MEDROL] 40 mg IVPUSH Q12H 02/22/19 19:30 Prochlorperazine [Compazine] 5 mg IV Q6H PRN diphenhydrAMINE [Benadryl] 25 mg PO Q6H PRN 02/22/19 20:00 Amitriptyline [Elavil] 50 mg PO BEDTIME Famotidine [Pepcid] 20 mg PO BEDTIME Gabapentin [Neurontin] 300 mg PO TID Melatonin 6 mg PO BEDTIME Mirtazapine [Remeron] 15 mg PO BEDTIME traZODone 50 mg PO BEDTIME 02/23/19 08:00 Lactobacillus Rhamnosus GG [Culturelle] 1 cap PO DAILY Potassium Chloride [Klor-Con] 20 meq PO DAILY Sertraline [Zoloft] 25 mg PO DAILY azaTHIOprine [Imuran] 50 mg PO DAILY 02/23/19 Lunch Clear Liquid Diet [DIET] 02/24/19 05:11 BASIC METABOLIC PANEL,BMP [CHEM] Routine CBC WITH AUTO DIFF [HEME] Routine - Assessment Assessment:: 44 yo female admitted with dehydration and CHARIS secondary to acute on chronic abdominal pain, nausea, and vomiting related to underlying Crohn's. Labs looking better today overall. She has had some improvement but is still not able to eat/drink much. - Plan Plan:: #1 Dehydration #2 Acute Kidney Injury, secondary to #1 #3 Chronic Kidney Disease, stage III, secondary to recurrent CHARIS #4 Hyponatremia, secondary to #1 - Creatinine 1.9 this morning, which is not far off from where her outpatient baseline has been around 1.8. - Patient will finish the IV bag going now and then we will hold off on the IV fluids. - Will change her diet to clear liquids only to see if this will be better tolerated. - Will reassess I/O balance this afternoon to determine if further IV fluids are needed. - Na back to normal this am. - She will be seeing nephrology in March related to recurrent CHARIS in the setting of CKD. - Will continue plan for daily IV fluids through the ER upon discharge until she is able to better maintain hydration by mouth. #5 Hypokalemia - K slightly low today. - Will continue oral potassium supplements. #6 Chronic Abdominal Pain #7 Crohn's Disease #8 Nausea and vomiting - Continue current pain and nausea regimen until at least after noon. Will reassess this afternoon to see if we can make any changes over to oral medications. - Continue IV solu-medrol for today with plan to transition back to prednisone tomorrow. - Continue other home medications with the exception of phenergan (QTc prolongation risk with already being on zofran, amitriptyline, and compazine), clindamycin (on this for a dental infection that has improved; therefore, will hold for now), and bactrim (she is not supposed to be on this anymore and is getting pentamidine through [facility] instead). #9 Severe Malnutrition - Not currently using her feeding tube and is attempting to maintain nutrition with food intake by mouth. - She is currently keeping a food diary. - Will do clear liquids today and advance as tolerated. #10 Anxiety - Continue home medications. Patient will be admitted to observation - hopefully she will be able to dismiss home tomorrow. If not, then we will reassess whether she needs transfer to [facility] or just transition to acute cares here. See details under problems above. Code status is full - discussed on admission. Pharmacologic VTE prophylaxis contraindicated given report of bright red rectal bleeding. She can be up and ambulating as able.
--- NOTE | 2019-02-23 14:26 | PCM.SN ---
- Free Text/Narrative Note: Patient has been able to keep some water and jello down today but has vomited twice and continues with frequent loose stools. At this point, I am not optimistic she will be dismissed home tomorrow. Therefore, will change her from observation to acute status. Given ongoing symptoms, will also continue her current medications as is without adjustments. Will do another liter of IV fluids overnight and reassess based on labs in the morning.
[2019-02-23] MEDS: Cyclobenzaprine 10 MG Tab PO PRN (15:10)
[2019-02-23] MEDS ORDERED: Sodium Chloride 0.9% 10 ML Syringe IV PRN (19:56)
[2019-02-23] MEDS ORDERED: Lactated Ringers 1,000 ML IV SCH (20:00)
[2019-02-23] MEDS: Acetaminophen 500 MG Tab PO PRN (20:01)
[2019-02-23] MEDS: Amitriptyline 25 MG Tab PO SCH (20:02)
[2019-02-23] MEDS: Melatonin 3 MG Tab PO SCH (20:02)
[2019-02-23] MEDS: traZODone 50 MG Tab PO SCH (20:03)
[2019-02-23] MEDS: Mirtazapine 15 MG Tab PO SCH (20:03)
[2019-02-23] MEDS: Famotidine 20 MG Tab PO SCH (20:03)
[2019-02-23] MEDS: diphenhydrAMINE 25 MG Cap PO PRN (22:30)
[2019-02-23] MEDS: Sodium Chloride 0.9% 10 ML Syringe IV PRN (22:31)
[2019-02-24] MEDS: Sodium Chloride 0.9% 10 ML Syringe IV PRN ×2 (02:39→06:10)
[2019-02-24] MEDS: HYDROmorphone 1 MG/ML Syringe IVPUSH PRN ×3 (02:39→13:31)
[2019-02-24] MEDS: Omeprazole 20 MG Cap.CR PO SCH ×2 (06:11→17:47)
[2019-02-24] MEDS: methylPREDNISolone Sodium Succinate 40 MG/1 ML SDV IVPUSH SCH ×2 (06:11→17:50)
[2019-02-24] MEDS: Prochlorperazine 10 MG/2 ML SDV IV PRN ×3 (06:12→20:27)
[2019-02-24] MEDS: diphenhydrAMINE 25 MG Cap PO PRN ×2 (06:12→12:32)
[2019-02-24] MEDS: Dicyclomine 10 MG Cap PO SCH ×4 (06:12→20:43)
[2019-02-24] MEDS: Sodium Chloride 0.9% 10 ML Syringe IV SCH ×2 (07:37→20:29)
[2019-02-24] MEDS: AMYLASE PO SCH ×3 (08:24→18:17)
[2019-02-24] MEDS: PROTEASE PO SCH ×3 (08:24→18:17)
[2019-02-24] MEDS: LIPASE PO SCH ×3 (08:24→18:17)
[2019-02-24 08:31] LABS: ANION GAP 11.4 mmol/L (10-20)
[2019-02-24] MEDS: Gabapentin 300 MG Cap PO SCH ×3 (08:31→20:39)
[2019-02-24] MEDS: Potassium Chloride 20 MEQ Packet PO SCH (08:31)
[2019-02-24] MEDS: Sertraline 25 MG Tab PO SCH (08:32)
[2019-02-24] MEDS: Ondansetron 4 MG Tab.DIS PO PRN ×2 (08:32→18:18)
[2019-02-24] MEDS: Lactobacillus Rhamnosus GG (Probiotic) Cap PO SCH (08:33)
[2019-02-24] MEDS: Vancomycin 125 MG/2.5 ML Oral Solution 2.5 ML UD Cup PO SCH ×4 (08:37→20:38)
--- NOTE | 2019-02-24 10:36 | PCM.PN ---
- General Info Date of Service: 02/24/19 Admission Dx/Problem (Free Text): History: Still a lot of abdominal pain, nausea and some vomiting, thinks she is a little better and is willing to advance her diet, fortunately she does not mind clear liquids. She is getting IV Dilaudid p.r.n., not getting very good pain relief from this so far. She had 1 mg Dilaudid IV in the ER but now is on 0.25 mg p.r.n. Q 4 hours only. Continues to have loose stools with some blood, is getting IV Medrol. She gets her IV pain medication and to her port in the R upper chest, which she has had for about 2 months now. Her plan on leaving [facility] last week was to come to ER every day for some IV fluid supplement. She has some anemia, that is unchanged today. Her creatinine was 1.9 yesterday and is down to 1.3 today. Exam: -No respiratory distress, lungs clear -Alert and lucid, answers questions appropriately -Heart sounds normal and regular -Abdomen is not distended, is moderately tender throughout without rebound tenderness -Bowel sounds are quite active -Skin normal Impression: -Active Crohns disease with abdominal pain and tenderness, bloody diarrhea -Slightly improved but pain relief inadequate she says Plan: -Increase Dilaudid from 0.25 mg up to 0.5 mg q 4 hours p.r.n.. -Advanced to full liquids -Continue Solu-Medrol 40 mg IV BID -Continue acute care status - Patient Data Vitals - Most Recent: Last Vital Signs Temp 36.9 C 02/24/19 10:00 Pulse 79 02/24/19 10:00 Resp 14 02/24/19 10:00 BP 108/65 02/24/19 10:00 Pulse Ox 98 02/24/19 10:00 Weight - Most Recent: 39.009 kg I&O - Last 24 Hours: Intake & Output 02/23/19 02/24/19 02/24/19 22:59 06:59 14:59 Intake Total 280 998 Output Total 400 Balance 280 598 Lab Results Last 24 Hours: Laboratory Results - last 24 hr 02/24/19 02/24/19 Range/Units 07:35 07:35 WBC 12.6 H (4.0-10.0) x10^3/uL RBC 2.73 L (4.00-5.50) x10^6/uL Hgb 8.1 L (12.0-16.0) g/dL Hct 26.4 L (33.0-47.0) % MCV 96.7 H (78.0-93.0) fL MCH 29.7 (26.0-32.0) pg MCHC 30.7 L (32.0-36.0) g/dL RDW Coeff of Brianda 13.8 (10.0-15.0) % Plt Count 446 H D (130-400) x10^3/uL Neut % (Auto) 83.5 H (50.0-80.0) % Lymph % (Auto) 10.8 L (25.0-50.0) % [place] % (Auto) 5.4 (2.0-11.0) % Eos % (Auto) 0.1 (0.0-4.0) % Baso % (Auto) 0.2 (0.2-1.2) % Sodium 142 (136-145) mmol/L Potassium 3.4 L (3.5-5.1) mmol/L Chloride 109 H (98-107) mmol/L Carbon Dioxide 25 (21-32) mmol/L Anion Gap 11.4 (10-20) mmol/L BUN 18 (7-18) mg/dL Creatinine 1.3 H (0.55-1.02) mg/dL Est Cr Clr Drug Dosing 33.30 mL/min Estimated GFR (MDRD) 44 Glucose 85 (74-106) mg/dL Calcium 8.0 L (8.5-10.1) mg/dL Med Orders - Current: Current Medications Acetaminophen (Tylenol Extra Strength) 1,000 mg PO TID PRN PRN Reason: Pain Last Admin: 02/23/19 20:01 Dose: 1,000 mg Amitriptyline HCl (Elavil) 50 mg PO BEDTIME [facility] Last Admin: 02/23/19 20:02 Dose: 50 mg Azathioprine (Imuran) 50 mg PO DAILY [facility] Last Admin: 02/24/19 08:33 Dose: 50 mg Cyclobenzaprine HCl (Flexeril) 5 mg PO TID PRN PRN Reason: Pain Last Admin: 02/23/19 15:10 Dose: 5 mg Dicyclomine HCl (Bentyl) 10 mg PO QIDACANDBED [facility] Last Admin: 02/24/19 06:12 Dose: 10 mg Diphenhydramine HCl (Benadryl) 25 mg PO Q6H PRN PRN Reason: Nausea Last Admin: 02/24/19 06:12 Dose: 25 mg Famotidine (Pepcid) 20 mg PO BEDTIME [facility] Last Admin: 02/23/19 20:03 Dose: 20 mg Gabapentin (Neurontin) 300 mg PO TID [facility] Last Admin: 02/24/19 08:31 Dose: 300 mg Heparin Sodium (Porcine) (Heparin Lock Flush 100 Units/Ml) 500 units IVPUSH DAILY [facility] Last Admin: 02/24/19 08:34 Dose: 500 units Heparin Sodium (Porcine) (Heparin Lock Flush 100 Units/Ml) 500 units IVPUSH ASDIRECTED PRN PRN Reason: Keep Vein Open Last Admin: 02/24/19 07:38 Dose: 500 units Hydromorphone HCl (Dilaudid) 0.5 mg IVPUSH Q4H PRN PRN Reason: Pain Lactobacillus Rhamnosus (Culturelle) 1 cap PO DAILY [facility] Last Admin: 02/24/19 08:33 Dose: 1 cap Lidocaine/Prilocaine (Emla Crm) 0 gm TOP DAILY PRN PRN Reason: Port Access Melatonin (Melatonin) 6 mg PO BEDTIME [facility] Last Admin: 02/23/19 20:02 Dose: 6 mg Methylprednisolone Sodium Succinate (Solu-Medrol) 40 mg IVPUSH Q12H [facility] Last Admin: 02/24/19 06:11 Dose: 40 mg Mirtazapine (Remeron) 15 mg PO BEDTIME [facility] Last Admin: 02/23/19 20:03 Dose: 15 mg Multi-Ingred Cream/Lotion/Oil/Oint (Zinc Oxide) 0 gm TOP Q2H PRN PRN Reason: Rash Dronabinol [Marinol] (5mg (Own Supply)) 0 mg PO BIDAC [facility] Last Admin: 02/24/19 06:12 Dose: 5 mg Amylase/Lipase/Protease. (Own Supply) 0 dose PO TIDMEALS [facility] Last Admin: 02/24/19 08:24 Dose: 1 dose Omeprazole (Omeprazole) 40 mg PO BIDAC [facility] Last Admin: 02/24/19 06:11 Dose: 40 mg Ondansetron HCl (Zofran Odt) 8 mg PO TID PRN PRN Reason: Nausea Last Admin: 02/24/19 08:32 Dose: 8 mg Potassium Chloride (Klor-Con) 20 meq PO DAILY [facility] Last Admin: 02/24/19 08:31 Dose: 20 meq Prochlorperazine Edisylate (Compazine) 5 mg IV Q6H PRN PRN Reason: Nausea Last Admin: 02/24/19 06:12 Dose: 5 mg Sertraline HCl (Zoloft) 25 mg PO DAILY [facility] Last Admin: 02/24/19 08:32 Dose: 25 mg Simethicone (Simethicone) 80 mg PO QID PRN PRN Reason: Gas Sodium Chloride (Saline Flush) 20 ml IV BID [facility] Last Admin: 02/24/19 07:37 Dose: 20 ml Sodium Chloride (Saline Flush) 20 ml IV ASDIRECTED PRN PRN Reason: Keep Vein Open Last Admin: 02/24/19 06:10 Dose: 20 ml Trazodone HCl (Trazodone) 50 mg PO BEDTIME [facility] Last Admin: 02/23/19 20:03 Dose: 50 mg Vancomycin HCl (Vancocin 125 Mg/2.5 Ml Soln) 250 mg PO QID [facility] Last Admin: 02/24/19 08:37 Dose: 250 mg Discontinued Medications Diphenhydramine HCl (Benadryl) 25 mg IVPUSH ONETIME ONE Stop: 02/22/19 13:28 Last Admin: 02/22/19 14:03 Dose: 25 mg Hydromorphone HCl (Dilaudid) 0.25 mg IVPUSH ONETIME ONE Stop: 02/22/19 13:28 Last Admin: 02/22/19 14:03 Dose: 0.25 mg Hydromorphone HCl (Dilaudid) 0.25 mg IVPUSH Q4H PRN PRN Reason: Pain Last Admin: 02/24/19 02:39 Dose: 0.25 mg Lactated Ringer's (Ringers, Lactated) 1,000 mls @ 100 mls/hr IV ASDIRECTED [facility] Last Admin: 02/23/19 00:27 Dose: 100 mls/hr Lactated Ringer's (Ringers, Lactated) 1,000 mls @ 100 mls/hr IV ASDIRECTED [facility] Stop: 02/24/19 06:01 Last Admin: 02/23/19 20:03 Dose: 100 mls/hr Amylase/Lipase/Protease. (Own Supply) 1 dose PO TIDMEALS [facility] Last Admin: 02/23/19 12:06 Dose: Not Given Prochlorperazine Edisylate (Compazine) 5 mg IV ONETIME ONE Stop: 02/22/19 13:28 Last Admin: 02/22/19 14:04 Dose: 5 mg Prochlorperazine Edisylate (Compazine) 5 mg IV Q4HR PRN PRN Reason: Nausea/Vomiting Sodium Chloride (Saline Flush) 10 ml IV ASDIRECTED PRN PRN Reason: Keep Vein Open Last Admin: 02/23/19 19:55 Dose: 20 ml - Problem List Review Problem List Initiated/Reviewed/Updated: Yes - My Orders Last 24 Hours: My Active Orders 02/24/19 09:08 HYDROmorphone [Dilaudid] 0.5 mg IVPUSH Q4H PRN 02/24/19 Lunch Full Liquid Diet [DIET]
[2019-02-24] MEDS: Acetaminophen 500 MG Tab PO PRN (11:05)
[2019-02-24] MEDS: traZODone 50 MG Tab PO SCH (20:38)
[2019-02-24] MEDS: Mirtazapine 15 MG Tab PO SCH (20:38)
[2019-02-24] MEDS: Melatonin 3 MG Tab PO SCH (20:38)
[2019-02-24] MEDS: Famotidine 20 MG Tab PO SCH (20:39)
[2019-02-24] MEDS: Amitriptyline 25 MG Tab PO SCH (20:39)
[2019-02-24] MEDS ORDERED: Lactated Ringers 1,000 ML IV SCH (21:00)
[2019-02-25] MEDS: HYDROmorphone 1 MG/ML Syringe IVPUSH PRN ×5 (02:43→20:08)
[2019-02-25] MEDS: Sodium Chloride 0.9% 10 ML Syringe IV PRN ×4 (02:49→23:09)
[2019-02-25] MEDS: Prochlorperazine 10 MG/2 ML SDV IV PRN ×4 (02:50→23:02)
[2019-02-25] MEDS: diphenhydrAMINE 25 MG Cap PO PRN ×3 (02:53→19:56)
[2019-02-25] MEDS: methylPREDNISolone Sodium Succinate 40 MG/1 ML SDV IVPUSH SCH ×2 (05:30→17:33)
[2019-02-25] MEDS: Dicyclomine 10 MG Cap PO SCH ×4 (06:18→19:58)
[2019-02-25] MEDS: Omeprazole 20 MG Cap.CR PO SCH ×2 (06:19→16:12)
[2019-02-25] MEDS: Sodium Chloride 0.9% 10 ML Syringe IV SCH ×2 (07:42→20:00)
[2019-02-25] MEDS: Sertraline 25 MG Tab PO SCH (09:16)
[2019-02-25] MEDS: Vancomycin 125 MG/2.5 ML Oral Solution 2.5 ML UD Cup PO SCH ×4 (09:16→20:01)
[2019-02-25] MEDS: Lactobacillus Rhamnosus GG (Probiotic) Cap PO SCH (09:17)
[2019-02-25] MEDS: Gabapentin 300 MG Cap PO SCH ×3 (09:20→19:58)
[2019-02-25] MEDS: LIPASE PO SCH ×3 (09:21→17:32)
[2019-02-25] MEDS: Potassium Chloride 20 MEQ Packet PO SCH (09:21)
[2019-02-25] MEDS: PROTEASE PO SCH ×3 (09:21→17:32)
[2019-02-25] MEDS: AMYLASE PO SCH ×3 (09:21→17:32)
[2019-02-25] MEDS: Acetaminophen 500 MG Tab PO PRN (09:35)
--- NOTE | 2019-02-25 10:42 | PCM.PN ---
- General Info Date of Service: 02/25/19 Admission Dx/Problem (Free Text): History: After she complained yesterday of inadequate pain relief I increased her p.r.n. IV Dilaudid from 0.25 mg q 4 hr p.r.n. up to 0.5 mg q 4 hr p.r.n., and she has no complaints today, says she still has a deep pain in her LUQ and RLQ abdomen, but the tenderness is a little better. She vomited 4 times yesterday, none so far today at 10 AM, says she is hungry and would like to advance to soft diet. She got her liter of RL IV last night as she had been doing as an outpatient, will continue to do that. Exam: -Heart regular and normal -Alert and in only mild distress from pain -No respiratory distress -Bowel sounds are present but not as interactive as they were yesterday -Mild tenderness to palpation in the abdomen but no rebound tenderness Impression: -Mild improvement in exacerbation of Crohns disease -Her regular use of IV Dilaudid is concerning Plan: -Advance to soft diet -Try to start decreasing her IV Dilaudid soon - Patient Data Vitals - Most Recent: Last Vital Signs Temp 36.5 C 02/25/19 10:00 Pulse 64 02/25/19 10:00 Resp 20 02/25/19 10:00 BP 107/71 02/25/19 10:00 Pulse Ox 94 L 02/25/19 10:00 Weight - Most Recent: 39.009 kg I&O - Last 24 Hours: Intake & Output 02/24/19 02/25/19 02/25/19 22:59 06:59 14:59 Intake Total 1000 Output Total 400 1250 Balance -400 -1250 1000 Med Orders - Current: Current Medications Acetaminophen (Tylenol Extra Strength) 1,000 mg PO TID PRN PRN Reason: Pain Last Admin: 02/25/19 09:35 Dose: 1,000 mg Amitriptyline HCl (Elavil) 50 mg PO BEDTIME [facility] Last Admin: 02/24/19 20:39 Dose: 50 mg Azathioprine (Imuran) 50 mg PO DAILY [facility] Last Admin: 02/25/19 09:17 Dose: 50 mg Cyclobenzaprine HCl (Flexeril) 5 mg PO TID PRN PRN Reason: Pain Last Admin: 02/23/19 15:10 Dose: 5 mg Dicyclomine HCl (Bentyl) 10 mg PO QIDACANDBED [facility] Last Admin: 02/25/19 06:18 Dose: 10 mg Diphenhydramine HCl (Benadryl) 25 mg PO Q6H PRN PRN Reason: Nausea Last Admin: 02/25/19 09:38 Dose: 25 mg Famotidine (Pepcid) 20 mg PO BEDTIME [facility] Last Admin: 02/24/19 20:39 Dose: 20 mg Gabapentin (Neurontin) 300 mg PO TID [facility] Last Admin: 02/25/19 09:20 Dose: 300 mg Heparin Sodium (Porcine) (Heparin Lock Flush 100 Units/Ml) 500 units IVPUSH DAILY [facility] Last Admin: 02/25/19 07:41 Dose: 500 units Heparin Sodium (Porcine) (Heparin Lock Flush 100 Units/Ml) 500 units IVPUSH ASDIRECTED PRN PRN Reason: Keep Vein Open Last Admin: 02/24/19 13:42 Dose: 500 units Hydromorphone HCl (Dilaudid) 0.5 mg IVPUSH Q4H PRN PRN Reason: Pain Last Admin: 02/25/19 06:40 Dose: 0.5 mg Lactated Ringer's (Ringers, Lactated) 1,000 mls @ 100 mls/hr IV BEDTIME [facility] Lactobacillus Rhamnosus (Culturelle) 1 cap PO DAILY [facility] Last Admin: 02/25/19 09:17 Dose: 1 cap Lidocaine/Prilocaine (Emla Crm) 0 gm TOP DAILY PRN PRN Reason: Port Access Melatonin (Melatonin) 6 mg PO BEDTIME [facility] Last Admin: 02/24/19 20:38 Dose: 6 mg Methylprednisolone Sodium Succinate (Solu-Medrol) 40 mg IVPUSH Q12H [facility] Last Admin: 02/25/19 05:30 Dose: 40 mg Mirtazapine (Remeron) 15 mg PO BEDTIME [facility] Last Admin: 02/24/19 20:38 Dose: 15 mg Multi-Ingred Cream/Lotion/Oil/Oint (Zinc Oxide) 0 gm TOP Q2H PRN PRN Reason: Rash Dronabinol [Marinol] (5mg (Own Supply)) 0 mg PO BIDAC [facility] Last Admin: 02/25/19 06:16 Dose: 5 mg Amylase/Lipase/Protease. (Own Supply) 0 dose PO TIDMEALS [facility] Last Admin: 02/25/19 09:21 Dose: 1 dose Omeprazole (Omeprazole) 40 mg PO BIDAC [facility] Last Admin: 02/25/19 06:19 Dose: 40 mg Ondansetron HCl (Zofran Odt) 8 mg PO TID PRN PRN Reason: Nausea Last Admin: 02/24/19 18:18 Dose: 8 mg Potassium Chloride (Klor-Con) 20 meq PO DAILY [facility] Last Admin: 02/25/19 09:21 Dose: 20 meq Prochlorperazine Edisylate (Compazine) 5 mg IV Q6H PRN PRN Reason: Nausea Last Admin: 02/25/19 09:41 Dose: 5 mg Sertraline HCl (Zoloft) 25 mg PO DAILY [facility] Last Admin: 02/25/19 09:16 Dose: 25 mg Simethicone (Simethicone) 80 mg PO QID PRN PRN Reason: Gas Sodium Chloride (Saline Flush) 20 ml IV BID [facility] Last Admin: 02/25/19 07:42 Dose: 20 ml Sodium Chloride (Saline Flush) 20 ml IV ASDIRECTED PRN PRN Reason: Keep Vein Open Last Admin: 02/25/19 09:42 Dose: 20 ml Trazodone HCl (Trazodone) 50 mg PO BEDTIME [facility] Last Admin: 02/24/19 20:38 Dose: 50 mg Vancomycin HCl (Vancocin 125 Mg/2.5 Ml Soln) 250 mg PO QID [facility] Last Admin: 02/25/19 09:16 Dose: 250 mg Discontinued Medications Diphenhydramine HCl (Benadryl) 25 mg IVPUSH ONETIME ONE Stop: 02/22/19 13:28 Last Admin: 02/22/19 14:03 Dose: 25 mg Hydromorphone HCl (Dilaudid) 0.25 mg IVPUSH ONETIME ONE Stop: 02/22/19 13:28 Last Admin: 02/22/19 14:03 Dose: 0.25 mg Hydromorphone HCl (Dilaudid) 0.25 mg IVPUSH Q4H PRN PRN Reason: Pain Last Admin: 02/24/19 08:50 Dose: 0.25 mg Lactated Ringer's (Ringers, Lactated) 1,000 mls @ 100 mls/hr IV ASDIRECTED [facility] Last Admin: 02/23/19 00:27 Dose: 100 mls/hr Lactated Ringer's (Ringers, Lactated) 1,000 mls @ 100 mls/hr IV ASDIRECTED [facility] Stop: 02/24/19 06:01 Last Admin: 02/23/19 20:03 Dose: 100 mls/hr Lactated Ringer's (Ringers, Lactated) 1,000 mls @ 100 mls/hr IV ASDIRECTED [facility] Stop: 02/25/19 07:00 Last Admin: 02/24/19 21:33 Dose: 100 mls/hr Amylase/Lipase/Protease. (Own Supply) 1 dose PO TIDMEALS [facility] Last Admin: 02/23/19 12:06 Dose: Not Given Prochlorperazine Edisylate (Compazine) 5 mg IV ONETIME ONE Stop: 02/22/19 13:28 Last Admin: 02/22/19 14:04 Dose: 5 mg Prochlorperazine Edisylate (Compazine) 5 mg IV Q4HR PRN PRN Reason: Nausea/Vomiting Sodium Chloride (Saline Flush) 10 ml IV ASDIRECTED PRN PRN Reason: Keep Vein Open Last Admin: 02/23/19 19:55 Dose: 20 ml - Problem List Review Problem List Initiated/Reviewed/Updated: Yes - My Orders Last 24 Hours: My Active Orders 02/24/19 Lunch Full Liquid Diet [DIET] 02/25/19 Lunch Soft Diet [DIET]
[2019-02-25] MEDS: Ondansetron 4 MG Tab.DIS PO PRN (19:55)
[2019-02-25] MEDS: Melatonin 3 MG Tab PO SCH (19:57)
[2019-02-25] MEDS: Mirtazapine 15 MG Tab PO SCH (19:57)
[2019-02-25] MEDS: traZODone 50 MG Tab PO SCH (19:58)
[2019-02-25] MEDS: Amitriptyline 25 MG Tab PO SCH (19:59)
[2019-02-25] MEDS: Lactated Ringers 1,000 ML IV SCH (20:00)
[2019-02-25] MEDS: Famotidine 20 MG Tab PO SCH (20:08)
[2019-02-25] MEDS: diphenhydrAMINE 50 MG/ML SDV IVPUSH PRN (21:50)
[2019-02-26] MEDS: HYDROmorphone 1 MG/ML Syringe IVPUSH PRN ×5 (02:47→22:50)
[2019-02-26] MEDS: Ondansetron 4 MG Tab.DIS PO PRN ×3 (02:48→20:01)
[2019-02-26] MEDS: Sodium Chloride 0.9% 10 ML Syringe IV PRN ×3 (02:49→22:46)
[2019-02-26] MEDS: methylPREDNISolone Sodium Succinate 40 MG/1 ML SDV IVPUSH SCH ×2 (05:49→17:10)
[2019-02-26] MEDS: Prochlorperazine 10 MG/2 ML SDV IV PRN ×3 (05:50→22:42)
[2019-02-26] MEDS: diphenhydrAMINE 50 MG/ML SDV IVPUSH PRN ×3 (05:50→20:18)
[2019-02-26] MEDS: Omeprazole 20 MG Cap.CR PO SCH ×2 (07:36→17:09)
[2019-02-26] MEDS: Dicyclomine 10 MG Cap PO SCH ×4 (07:36→20:03)
[2019-02-26] MEDS: Potassium Chloride 20 MEQ Packet PO SCH (08:34)
[2019-02-26] MEDS: Lactobacillus Rhamnosus GG (Probiotic) Cap PO SCH (08:34)
[2019-02-26] MEDS: Sodium Chloride 0.9% 10 ML Syringe IV SCH ×2 (08:35→20:07)
[2019-02-26] MEDS: Gabapentin 300 MG Cap PO SCH ×3 (08:35→20:03)
[2019-02-26] MEDS: Sertraline 25 MG Tab PO SCH (08:35)
[2019-02-26] MEDS: Vancomycin 125 MG/2.5 ML Oral Solution 2.5 ML UD Cup PO SCH ×4 (08:36→20:01)
[2019-02-26] MEDS: AMYLASE PO SCH ×3 (08:38→17:13)
[2019-02-26] MEDS: PROTEASE PO SCH ×3 (08:38→17:13)
[2019-02-26] MEDS: LIPASE PO SCH ×3 (08:38→17:13)
[2019-02-26] MEDS: Acetaminophen 500 MG Tab PO PRN (10:07)
--- NOTE | 2019-02-26 11:40 | PCM.PN ---
- General Info Date of Service: 02/26/19 Admission Dx/Problem (Free Text): History: She was advanced to soft diet yesterday, because she was hungry and she felt like eating it was a good idea, but later in the evening she started having profuse vomiting again, estimated fluid loss about 1100 mL. Responded to an increase in her IV Benadryl from 25 up to 50 mg IV bolus so this is being continued every 4 hours p.r.n.. Today she has not vomited so far but is still nauseated. She is hungry again also and will try to eat a small amount. Exam: No respiratory distress Heart regular Abdomen still mildly tender about the same as yesterday Impression: Severe exacerbation of Crohns disease, lots of vomiting yesterday Plan: Get BMP tomorrow Continue same regimen otherwise - Patient Data Vitals - Most Recent: Last Vital Signs Temp 36.6 C 02/26/19 06:00 Pulse 93 02/26/19 06:00 Resp 18 02/26/19 06:00 BP 119/59 L 02/26/19 06:00 Pulse Ox 99 02/26/19 06:00 Weight - Most Recent: 39.009 kg I&O - Last 24 Hours: Intake & Output 02/25/19 02/26/19 02/26/19 22:59 06:59 14:59 Intake Total 995 Output Total 1800 300 300 Balance -1800 695 -300 Med Orders - Current: Current Medications Acetaminophen (Tylenol Extra Strength) 1,000 mg PO TID PRN PRN Reason: Pain Last Admin: 02/26/19 10:07 Dose: 1,000 mg Amitriptyline HCl (Elavil) 50 mg PO BEDTIME [facility] Last Admin: 02/25/19 19:59 Dose: 50 mg Azathioprine (Imuran) 50 mg PO DAILY [facility] Last Admin: 02/26/19 08:34 Dose: 50 mg Cyclobenzaprine HCl (Flexeril) 5 mg PO TID PRN PRN Reason: Pain Last Admin: 02/23/19 15:10 Dose: 5 mg Dicyclomine HCl (Bentyl) 10 mg PO QIDACANDBED COUNTS INCLUDE 234 BEDS AT [facility] Last Admin: 02/26/19 11:35 Dose: 10 mg Diphenhydramine HCl (Benadryl) 50 mg IVPUSH Q6H PRN PRN Reason: Nausea/Vomiting Last Admin: 02/26/19 05:50 Dose: 50 mg Famotidine (Pepcid) 20 mg PO BEDTIME COUNTS INCLUDE 234 BEDS AT [facility] Last Admin: 02/25/19 20:08 Dose: 20 mg Gabapentin (Neurontin) 300 mg PO TID COUNTS INCLUDE 234 BEDS AT [facility] Last Admin: 02/26/19 11:33 Dose: 300 mg Heparin Sodium (Porcine) (Heparin Lock Flush 100 Units/Ml) 500 units IVPUSH DAILY [facility]S INCLUDE 234 BEDS AT [facility] Last Admin: 02/26/19 08:35 Dose: 500 units Heparin Sodium (Porcine) (Heparin Lock Flush 100 Units/Ml) 500 units IVPUSH ASDIRECTED PRN PRN Reason: Keep Vein Open Last Admin: 02/26/19 06:12 Dose: 500 units Hydromorphone HCl (Dilaudid) 0.5 mg IVPUSH Q4H PRN PRN Reason: Pain Last Admin: 02/26/19 11:36 Dose: 0.5 mg Lactated Ringer's (Ringers, Lactated) 1,000 mls @ 100 mls/hr IV BEDTIME COUNTS INCLUDE 234 BEDS AT [facility] Last Admin: 02/25/19 20:00 Dose: 100 mls/hr Lactobacillus Rhamnosus (Culturelle) 1 cap PO DAILY [facility]S INCLUDE 234 BEDS AT [facility] Last Admin: 02/26/19 08:34 Dose: 1 cap Lidocaine/Prilocaine (Emla Crm) 0 gm TOP DAILY PRN PRN Reason: Port Access Melatonin (Melatonin) 6 mg PO BEDTIME COUNTS INCLUDE 234 BEDS AT [facility] Last Admin: 02/25/19 19:57 Dose: 6 mg Methylprednisolone Sodium Succinate (Solu-Medrol) 40 mg IVPUSH Q12H COUNTS INCLUDE 234 BEDS AT [facility] Last Admin: 02/26/19 05:49 Dose: 40 mg Mirtazapine (Remeron) 15 mg PO BEDTIME COUNTS INCLUDE 234 BEDS AT [facility] Last Admin: 02/25/19 19:57 Dose: 15 mg Multi-Ingred Cream/Lotion/Oil/Oint (Zinc Oxide) 0 gm TOP Q2H PRN PRN Reason: Rash Dronabinol [Marinol] (5mg (Own Supply)) 0 mg PO BIDAC COUNTS INCLUDE 234 BEDS AT [facility] Last Admin: 02/26/19 06:17 Dose: 5 mg Amylase/Lipase/Protease. (Own Supply) 0 dose PO TIDMEALS COUNTS INCLUDE 234 BEDS AT [facility] Last Admin: 02/26/19 11:35 Dose: 24,000 dose Omeprazole (Omeprazole) 40 mg PO BIDAC COUNTS INCLUDE 234 BEDS AT [facility] Last Admin: 02/26/19 07:36 Dose: 40 mg Ondansetron HCl (Zofran Odt) 8 mg PO TID PRN PRN Reason: Nausea Last Admin: 02/26/19 11:33 Dose: 8 mg Potassium Chloride (Klor-Con) 20 meq PO DAILY [facility]S INCLUDE 234 BEDS AT [facility] Last Admin: 02/26/19 08:34 Dose: 20 meq Prochlorperazine Edisylate (Compazine) 5 mg IV Q6H PRN PRN Reason: Nausea Last Admin: 02/26/19 05:50 Dose: 5 mg Sertraline HCl (Zoloft) 25 mg PO DAILY [facility]S INCLUDE 234 BEDS AT [facility] Last Admin: 02/26/19 08:35 Dose: 25 mg Simethicone (Simethicone) 80 mg PO QID PRN PRN Reason: Gas Sodium Chloride (Saline Flush) 20 ml IV BID COUNTS INCLUDE 234 BEDS AT [facility] Last Admin: 02/26/19 08:35 Dose: 20 ml Sodium Chloride (Saline Flush) 20 ml IV ASDIRECTED PRN PRN Reason: Keep Vein Open Last Admin: 02/26/19 05:51 Dose: 20 ml Trazodone HCl (Trazodone) 50 mg PO BEDTIME COUNTS INCLUDE 234 BEDS AT [facility] Last Admin: 02/25/19 19:58 Dose: 50 mg Vancomycin HCl (Vancocin 125 Mg/2.5 Ml Soln) 250 mg PO QID COUNTS INCLUDE 234 BEDS AT [facility] Last Admin: 02/26/19 11:32 Dose: 250 mg Discontinued Medications Diphenhydramine HCl (Benadryl) 25 mg IVPUSH ONETIME ONE Stop: 02/22/19 13:28 Last Admin: 02/22/19 14:03 Dose: 25 mg Diphenhydramine HCl (Benadryl) 25 mg PO Q6H PRN PRN Reason: Nausea Last Admin: 02/25/19 19:56 Dose: 25 mg Hydromorphone HCl (Dilaudid) 0.25 mg IVPUSH ONETIME ONE Stop: 02/22/19 13:28 Last Admin: 02/22/19 14:03 Dose: 0.25 mg Hydromorphone HCl (Dilaudid) 0.25 mg IVPUSH Q4H PRN PRN Reason: Pain Last Admin: 02/24/19 08:50 Dose: 0.25 mg Lactated Ringer's (Ringers, Lactated) 1,000 mls @ 100 mls/hr IV ASDIRECTED [facility] Last Admin: 02/23/19 00:27 Dose: 100 mls/hr Lactated Ringer's (Ringers, Lactated) 1,000 mls @ 100 mls/hr IV ASDIRECTED [facility] Stop: 02/24/19 06:01 Last Admin: 02/23/19 20:03 Dose: 100 mls/hr Lactated Ringer's (Ringers, Lactated) 1,000 mls @ 100 mls/hr IV ASDIRECTED [facility] Stop: 02/25/19 07:00 Last Admin: 02/24/19 21:33 Dose: 100 mls/hr Amylase/Lipase/Protease. (Own Supply) 1 dose PO TIDMEALS COUNTS INCLUDE 234 BEDS AT [facility] Last Admin: 02/23/19 12:06 Dose: Not Given Prochlorperazine Edisylate (Compazine) 5 mg IV ONETIME ONE Stop: 02/22/19 13:28 Last Admin: 02/22/19 14:04 Dose: 5 mg Prochlorperazine Edisylate (Compazine) 5 mg IV Q4HR PRN PRN Reason: Nausea/Vomiting Sodium Chloride (Saline Flush) 10 ml IV ASDIRECTED PRN PRN Reason: Keep Vein Open Last Admin: 02/23/19 19:55 Dose: 20 ml - Problem List Review Problem List Initiated/Reviewed/Updated: Yes - My Orders Last 24 Hours: My Active Orders 02/25/19 21:12 diphenhydrAMINE [Benadryl] 50 mg IVPUSH Q6H PRN 02/25/19 Lunch Soft Diet [DIET] 02/27/19 07:30 BASIC METABOLIC PANEL,BMP [CHEM] Routine
[2019-02-26] MEDS: Cyclobenzaprine 10 MG Tab PO PRN ×2 (14:13→22:53)
[2019-02-26] MEDS: Lactated Ringers 1,000 ML IV SCH (20:00)
[2019-02-26] MEDS: traZODone 50 MG Tab PO SCH (20:02)
[2019-02-26] MEDS: Famotidine 20 MG Tab PO SCH (20:02)
[2019-02-26] MEDS: Amitriptyline 25 MG Tab PO SCH (20:02)
[2019-02-26] MEDS: Mirtazapine 15 MG Tab PO SCH (20:02)
[2019-02-26] MEDS: Melatonin 3 MG Tab PO SCH (20:02)
[2019-02-27] MEDS: HYDROmorphone 1 MG/ML Syringe IVPUSH PRN ×4 (03:18→23:05)
[2019-02-27] MEDS: Sodium Chloride 0.9% 10 ML Syringe IV PRN ×8 (03:19→17:29)
[2019-02-27] MEDS: Ondansetron 4 MG Tab.DIS PO PRN ×3 (03:22→17:37)
[2019-02-27] MEDS: diphenhydrAMINE 50 MG/ML SDV IVPUSH PRN ×2 (03:22→11:16)
[2019-02-27] MEDS: methylPREDNISolone Sodium Succinate 40 MG/1 ML SDV IVPUSH SCH ×2 (05:16→17:29)
[2019-02-27] MEDS: Prochlorperazine 10 MG/2 ML SDV IV PRN ×3 (06:13→19:36)
[2019-02-27] MEDS: Omeprazole 20 MG Cap.CR PO SCH ×2 (06:20→16:24)
[2019-02-27] MEDS: Dicyclomine 10 MG Cap PO SCH ×4 (06:21→19:55)
[2019-02-27 07:18] LABS: ANION GAP 10.1 mmol/L (10-20)
[2019-02-27] MEDS: Sertraline 25 MG Tab PO SCH (07:38)
[2019-02-27] MEDS: Potassium Chloride 20 MEQ Packet PO SCH (07:38)
[2019-02-27] MEDS: Gabapentin 300 MG Cap PO SCH ×3 (07:38→19:54)
[2019-02-27] MEDS: Lactobacillus Rhamnosus GG (Probiotic) Cap PO SCH (07:38)
[2019-02-27] MEDS: Cyclobenzaprine 10 MG Tab PO PRN ×3 (07:39→19:51)
[2019-02-27] MEDS: Vancomycin 125 MG/2.5 ML Oral Solution 2.5 ML UD Cup PO SCH ×4 (07:39→19:55)
[2019-02-27] MEDS: Acetaminophen 500 MG Tab PO PRN ×2 (07:39→11:17)
[2019-02-27] MEDS: Sodium Chloride 0.9% 10 ML Syringe IV SCH ×2 (07:43→19:46)
[2019-02-27] MEDS: PROTEASE PO SCH ×3 (07:45→17:31)
[2019-02-27] MEDS: LIPASE PO SCH ×3 (07:45→17:31)
[2019-02-27] MEDS: AMYLASE PO SCH ×3 (07:45→17:31)
--- NOTE | 2019-02-27 13:35 | PCM.PN ---
- General Info Date of Service: 02/27/19 Subjective Update: 44 yo female hospital day #6 admitted with nausea, vomiting, and abdominal pain in the setting of severe underlying Crohn's. Continued to require IV pain and nausea medications over the weekend. States today that her pain is still there but is back to her baseline. Her stools are also slowing down and she is having less urgency. She is having fewer bowel movements each day and is no longer seeing any bright red blood in the stools. Her nausea continues to be bothersome. She is still having a hard time keeping much of anything she eats or drinks down. She is drinking ad keon throughout the day and then is getting IV fluids each night to maintain hydration. She feels she is tolerating this ok and denies any swelling, chest pain, or shortness of breath. She has continued with night sweats and arthralgias but denies any fever or chills. - Review of Systems General: Reports: No Symptoms HEENT: Reports: No Symptoms Pulmonary: Reports: No Symptoms Cardiovascular: Reports: No Symptoms Gastrointestinal: Reports: Abdominal Pain, Nausea, Vomiting Genitourinary: Reports: No Symptoms Musculoskeletal: Reports: No Symptoms Skin: Reports: No Symptoms Neurological: Reports: No Symptoms Psychiatric: Reports: No Symptoms - Patient Data Vitals - Most Recent: Last Vital Signs Temp 36.6 C 02/27/19 10:00 Pulse 92 02/27/19 10:00 Resp 18 02/27/19 06:00 BP 117/74 02/27/19 10:00 Pulse Ox 97 02/27/19 10:00 Weight - Most Recent: 39.009 kg I&O - Last 24 Hours: Intake & Output 02/26/19 02/27/19 02/27/19 22:59 06:59 14:59 Intake Total 450 2200 510 Output Total 625 1000 Balance -175 1200 510 Lab Results Last 24 Hours: Laboratory Results - last 24 hr 02/27/19 02/27/19 02/27/19 Range/Units 06:25 06:25 06:25 WBC 13.2 H (4.0-10.0) x10^3/uL RBC 3.07 L (4.00-5.50) x10^6/uL Hgb 9.2 L (12.0-16.0) g/dL Hct 30.5 L (33.0-47.0) % MCV 99.3 H (78.0-93.0) fL MCH 30.0 (26.0-32.0) pg MCHC 30.2 L (32.0-36.0) g/dL RDW Coeff of Brianda 14.3 (10.0-15.0) % Plt Count 457 H (130-400) x10^3/uL Neut % (Auto) 84.9 H (50.0-80.0) % Lymph % (Auto) 9.8 L (25.0-50.0) % Ness % (Auto) 5.1 (2.0-11.0) % Eos % (Auto) 0.0 (0.0-4.0) % Baso % (Auto) 0.2 (0.2-1.2) % ESR (0-21) mm/hr Sodium 143 (136-145) mmol/L Potassium 4.1 (3.5-5.1) mmol/L Chloride 109 H (98-107) mmol/L Carbon Dioxide 28 (21-32) mmol/L Anion Gap 10.1 (10-20) mmol/L BUN 15 (7-18) mg/dL Creatinine 1.6 H (0.55-1.02) mg/dL Est Cr Clr Drug Dosing 27.06 mL/min Estimated GFR (MDRD) 35 Glucose 124 H (74-106) mg/dL Calcium 8.0 L (8.5-10.1) mg/dL C-Reactive Protein < 0.2 (<=0.9) mg/dL Lipase 94 (73-393) U/L 02/27/19 Range/Units 12:05 WBC (4.0-10.0) x10^3/uL RBC (4.00-5.50) x10^6/uL Hgb (12.0-16.0) g/dL Hct (33.0-47.0) % MCV (78.0-93.0) fL MCH (26.0-32.0) pg MCHC (32.0-36.0) g/dL RDW Coeff of Brianda (10.0-15.0) % Plt Count (130-400) x10^3/uL Neut % (Auto) (50.0-80.0) % Lymph % (Auto) (25.0-50.0) % Ness % (Auto) (2.0-11.0) % Eos % (Auto) (0.0-4.0) % Baso % (Auto) (0.2-1.2) % ESR 34 H (0-21) mm/hr Sodium (136-145) mmol/L Potassium (3.5-5.1) mmol/L Chloride (98-107) mmol/L Carbon Dioxide (21-32) mmol/L Anion Gap (10-20) mmol/L BUN (7-18) mg/dL Creatinine (0.55-1.02) mg/dL Est Cr Clr Drug Dosing mL/min Estimated GFR (MDRD) Glucose (74-106) mg/dL Calcium (8.5-10.1) mg/dL C-Reactive Protein (<=0.9) mg/dL Lipase (73-393) U/L Med Orders - Current: Current Medications Acetaminophen (Tylenol Extra Strength) 1,000 mg PO TID PRN PRN Reason: Pain Last Admin: 02/27/19 11:17 Dose: 1,000 mg Amitriptyline HCl (Elavil) 50 mg PO BEDTIME [facility] Last Admin: 02/26/19 20:02 Dose: 50 mg Azathioprine (Imuran) 50 mg PO DAILY [facility] Last Admin: 02/27/19 07:38 Dose: 50 mg Cyclobenzaprine HCl (Flexeril) 5 mg PO TID PRN PRN Reason: Pain Last Admin: 02/27/19 07:39 Dose: 5 mg Dicyclomine HCl (Bentyl) 10 mg PO QIDACANDBED [facility] Last Admin: 02/27/19 10:44 Dose: 10 mg Diphenhydramine HCl (Benadryl) 50 mg IVPUSH Q6H PRN PRN Reason: Nausea/Vomiting Last Admin: 02/27/19 11:16 Dose: 50 mg Famotidine (Pepcid) 20 mg PO BEDTIME [facility] Last Admin: 02/26/19 20:02 Dose: 20 mg Gabapentin (Neurontin) 300 mg PO TID [facility] Last Admin: 02/27/19 11:18 Dose: 300 mg Heparin Sodium (Porcine) (Heparin Lock Flush 100 Units/Ml) 500 units IVPUSH DAILY [facility] Last Admin: 02/27/19 07:42 Dose: 500 units Heparin Sodium (Porcine) (Heparin Lock Flush 100 Units/Ml) 500 units IVPUSH ASDIRECTED PRN PRN Reason: Keep Vein Open Last Admin: 02/27/19 12:01 Dose: 500 units Hydromorphone HCl (Dilaudid) 0.5 mg IVPUSH Q4H PRN PRN Reason: Pain Last Admin: 02/27/19 07:41 Dose: 0.5 mg Lactated Ringer's (Ringers, Lactated) 1,000 mls @ 100 mls/hr IV BEDTIME [facility] Last Admin: 02/26/19 20:00 Dose: 100 mls/hr Lactobacillus Rhamnosus (Culturelle) 1 cap PO DAILY [facility] Last Admin: 02/27/19 07:38 Dose: 1 cap Lidocaine/Prilocaine (Emla Crm) 0 gm TOP DAILY PRN PRN Reason: Port Access Melatonin (Melatonin) 6 mg PO BEDTIME [facility] [place] Last Admin: 02/26/19 20:02 Dose: 6 mg Methylprednisolone Sodium Succinate (Solu-Medrol) 40 mg IVPUSH Q12H [facility] Last Admin: 02/27/19 05:16 Dose: 40 mg Mirtazapine (Remeron) 15 mg PO BEDTIME [facility] Last Admin: 02/26/19 20:02 Dose: 15 mg Multi-Ingred Cream/Lotion/Oil/Oint (Zinc Oxide) 0 gm TOP Q2H PRN PRN Reason: Rash Dronabinol [Marinol] (5mg (Own Supply)) 0 mg PO BIDAC [facility] Last Admin: 02/27/19 06:16 Dose: 5 mg Amylase/Lipase/Protease. (Own Supply) 0 dose PO TIDMEALS [facility] Last Admin: 02/27/19 11:22 Dose: 1 dose Omeprazole (Omeprazole) 40 mg PO BIDAC [facility] Last Admin: 02/27/19 06:20 Dose: 40 mg Ondansetron HCl (Zofran Odt) 8 mg PO TID PRN PRN Reason: Nausea Last Admin: 02/27/19 11:14 Dose: 8 mg Potassium Chloride (Klor-Con) 20 meq PO DAILY [facility] [place] Last Admin: 02/27/19 07:38 Dose: 20 meq Prochlorperazine Edisylate (Compazine) 5 mg IV Q6H PRN PRN Reason: Nausea Last Admin: 02/27/19 11:16 Dose: 5 mg Sertraline HCl (Zoloft) 25 mg PO DAILY [facility] [place] Last Admin: 02/27/19 07:38 Dose: 25 mg Simethicone (Simethicone) 80 mg PO QID PRN PRN Reason: Gas Sodium Chloride (Saline Flush) 20 ml IV BID [facility] Last Admin: 02/27/19 07:43 Dose: 20 ml Sodium Chloride (Saline Flush) 20 ml IV ASDIRECTED PRN PRN Reason: Keep Vein Open Last Admin: 02/27/19 12:01 Dose: 20 ml Trazodone HCl (Trazodone) 50 mg PO BEDTIME [facility] Last Admin: 02/26/19 20:02 Dose: 50 mg Vancomycin HCl (Vancocin 125 Mg/2.5 Ml Soln) 250 mg PO QID [facility] Last Admin: 02/27/19 11:19 Dose: 250 mg Discontinued Medications Diphenhydramine HCl (Benadryl) 25 mg IVPUSH ONETIME ONE Stop: 02/22/19 13:28 Last Admin: 02/22/19 14:03 Dose: 25 mg Diphenhydramine HCl (Benadryl) 25 mg PO Q6H PRN PRN Reason: Nausea Last Admin: 02/25/19 19:56 Dose: 25 mg Hydromorphone HCl (Dilaudid) 0.25 mg IVPUSH ONETIME ONE Stop: 02/22/19 13:28 Last Admin: 02/22/19 14:03 Dose: 0.25 mg Hydromorphone HCl (Dilaudid) 0.25 mg IVPUSH Q4H PRN PRN Reason: Pain Last Admin: 02/24/19 08:50 Dose: 0.25 mg Lactated Ringer's (Ringers, Lactated) 1,000 mls @ 100 mls/hr IV ASDIRECTED [facility] Last Admin: 02/23/19 00:27 Dose: 100 mls/hr Lactated Ringer's (Ringers, Lactated) 1,000 mls @ 100 mls/hr IV ASDIRECTED [facility] Stop: 02/24/19 06:01 Last Admin: 02/23/19 20:03 Dose: 100 mls/hr Lactated Ringer's (Ringers, Lactated) 1,000 mls @ 100 mls/hr IV ASDIRECTED [facility] Stop: 02/25/19 07:00 Last Admin: 02/24/19 21:33 Dose: 100 mls/hr Amylase/Lipase/Protease. (Own Supply) 1 dose PO TIDMEALS [facility] Last Admin: 02/23/19 12:06 Dose: Not Given Prochlorperazine Edisylate (Compazine) 5 mg IV ONETIME ONE Stop: 02/22/19 13:28 Last Admin: 02/22/19 14:04 Dose: 5 mg Prochlorperazine Edisylate (Compazine) 5 mg IV Q4HR PRN PRN Reason: Nausea/Vomiting Sodium Chloride (Saline Flush) 10 ml IV ASDIRECTED PRN PRN Reason: Keep Vein Open Last Admin: 02/23/19 19:55 Dose: 20 ml - Exam General: Alert, Oriented, Cooperative, No Acute Distress HEENT: Mucous Membr. Moist/[place] Neck: Supple, Trachea Midline, No Thyromegaly. No: Lymphadenopathy Lungs: Clear to Auscultation, Normal Respiratory Effort Cardiovascular: Regular Rate, Regular Rhythm, No Murmurs GI/Abdominal Exam: Normal Bowel Sounds, Soft, No Organomegaly, No Mass, Distended, Tender (diffusely without any rebound, rigidity, or guarding) Extremities: Non-Tender, No Pedal Edema, Normal Capillary Refill Peripheral Pulses: 2+: Radial (L), Radial (R) Skin: Warm, Dry, Intact Neurological: No New Focal Deficit - Problem List & Annotations (1) Dehydration SNOMED Code(s): 26203403 Code(s): E86.0 - DEHYDRATION Status: Acute Current Visit: No (2) CHARIS (acute kidney injury) SNOMED Code(s): 31190315 Code(s): N17.9 - ACUTE KIDNEY FAILURE, UNSPECIFIED Status: Acute Current Visit: No (3) Chronic kidney disease SNOMED Code(s): 619105755 Code(s): N18.9 - CHRONIC KIDNEY DISEASE, UNSPECIFIED Status: Chronic Current Visit: No Qualifiers: Chronic kidney disease stage: stage 3 (moderate) Qualified Code(s): N18.3 - Chronic kidney disease, stage 3 (moderate) (4) Hyponatremia SNOMED Code(s): 99305230 Code(s): E87.1 - HYPO-OSMOLALITY AND HYPONATREMIA Status: Acute Priority : Medium Current Visit: No (5) Hypokalemia SNOMED Code(s): 49734593 Code(s): E87.6 - HYPOKALEMIA Status: Chronic Priority: Medium Current Visit: No (6) Chronic abdominal pain SNOMED Code(s): 735259559 Code(s): R10.9 - UNSPECIFIED ABDOMINAL PAIN; G89.29 - OTHER CHRONIC PAIN Status: Chronic Priority: Medium Current Visit: No (7) Crohns disease SNOMED Code(s): 36516509 Code(s): K50.90 - CROHN'S DISEASE, UNSPECIFIED, WITHOUT COMPLICATIONS Status: Chronic Current Visit: No Qualifiers: Gastrointestinal tract location: unspecified location Digestive disease complication type: unspecified complication Qualified Code(s): K50.919 - Crohn 's disease, unspecified, with unspecified complications (8) Nausea & vomiting SNOMED Code(s): 18336926 Code(s): R11.2 - NAUSEA WITH VOMITING, UNSPECIFIED Status: Chronic Priority: Medium Current Visit: No Qualifiers: Vomiting type: unspecified Vomiting Intractability: non-intractable Qualified Code(s): R11.2 - Nausea with vomiting, unspecified (9) Severe malnutrition SNOMED Code(s): 46592893 Code(s): E43 - UNSPECIFIED SEVERE PROTEIN-CALORIE MALNUTRITION Status: Chronic Current Visit: No (10) Anxiety SNOMED Code(s): 29650046 Code(s): F41.9 - ANXIETY DISORDER, UNSPECIFIED Status: Chronic Current Visit: No - Problem List Review Problem List Initiated/Reviewed/Updated: Yes - My Orders Last 24 Hours: My Active Orders 02/27/19 11:33 EKG 12 Lead [EKG Documentation Completion] [RC] ROUTINE 02/27/19 13:30 Abdomen 2V AP Flat Upright [CR] Routine - Assessment Assessment:: 44 yo female admitted with dehydration and CHARIS secondary to acute on chronic abdominal pain, nausea, and vomiting related to underlying Crohn's. Labs stable but patient continues to require IV fluids to help maintain this. - Plan Plan:: #1 Dehydration #2 Acute Kidney Injury, secondary to #1 #3 Chronic Kidney Disease, stage III, secondary to recurrent CHARIS #4 Hyponatremia, resolved - Creatinine 1.6 this morning, up from 1.3 yesterday. - Patient still has needed IV fluids every night as well as IV anti-emetics to control symptoms. - Continue the soft diet. - 1L/day is what she was getting outpatient so criteria for discharge would be that she is on all oral medications. - She will be seeing nephrology in March related to recurrent CHARIS in the setting of CKD. - Will continue plan for daily IV fluids through the ER upon discharge until she is able to better maintain hydration by mouth. #5 Hypokalemia - K stable on oral potassium supplements. #6 Chronic Abdominal Pain #7 Crohn's Disease #8 Nausea and vomiting - Will transition to PO hydromorphone today since her pain is back to baseline. - Will also transition to prednisone tomorrow since she has had improvement in pain and diarrhea. - Since she has had the most benefit from benadryl, discussed trial of a scopolamine patch. She is agreeable. - Also advised to use peppermint topically and louie for alternative methods to help with nausea. - Additional work-up today with labs and x-ray to rule out other causes for her nausea, such as SBO or pancreatitis. - Continue other home medications with the exception of phenergan (QTc ok today - could consider adding this back in if the scopolamine is not effective). Clindamycin and bactrim have been discontinued. #9 Severe Malnutrition - Not currently using her feeding tube and is attempting to maintain nutrition with food intake by mouth. - She is currently keeping a food diary. - Will continue her soft diet. #10 Anxiety - Continue home medications. Patient will remain on acute today - she does not require transfer to a higher level of care unless otherwise indicated by testing today and is not prepared for dismissal today due to still needing IV medications and IV fluids. Will hopefully be able to get her home in the next 1-2 days. If not, then we will reassess whether she needs transfer to [place]. See details under problems above. Code status is full - discussed on admission. Pharmacologic VTE prophylaxis contraindicated given recent bright red rectal bleeding. She can be up and ambulating as able.
[2019-02-27] MEDS ORDERED: HYDROmorphone 2 MG Tab PO PRN (14:44)
--- NOTE | 2019-02-27 15:00 | CR ---
[id number] RAD/RAD Abd Flat and Upright 2V EXAM: RAD Abd Flat and Upright 2V INDICATION: RECURRENT VOMITING. COMPARISON: January 30, 2019. DISCUSSION: There are a few air-fluid levels within the colon and distal small bowel most pronounced within the right lower quadrant. This was seen on the prior study as well. No free air. No definite evidence of obstruction. Surgical clips in the right upper quadrant likely prior cholecystectomy. Postsurgical changes within the left hemipelvis. Jejunostomy is in place. IMPRESSION: No acute findings in the abdomen or significant change in compared to the prior study. No definite evidence of obstruction. Maikel Medley DO 02/27/19 2841 Thank you for allowing us to participate in the care of your patient.
[2019-02-27] MEDS ORDERED: Scopolamine 1.5 MG Transdermal Patch TRDERM SCH (17:00)
[2019-02-27] MEDS: Lactated Ringers 1,000 ML IV SCH (19:30)
[2019-02-27] MEDS: Mirtazapine 15 MG Tab PO SCH (19:49)
[2019-02-27] MEDS: Famotidine 20 MG Tab PO SCH (19:50)
[2019-02-27] MEDS: Amitriptyline 25 MG Tab PO SCH (19:53)
[2019-02-27] MEDS: Melatonin 3 MG Tab PO SCH (19:53)
[2019-02-27] MEDS: traZODone 50 MG Tab PO SCH (19:54)
[2019-02-28] MEDS: Ondansetron 4 MG Tab.DIS PO PRN ×2 (00:15→07:23)
[2019-02-28] MEDS: Sodium Chloride 0.9% 10 ML Syringe IV SCH ×3 (05:59→20:08)
[2019-02-28] MEDS: Prochlorperazine 10 MG/2 ML SDV IV PRN (05:59)
[2019-02-28] MEDS: Omeprazole 20 MG Cap.CR PO SCH ×2 (06:08→16:19)
[2019-02-28] MEDS: Dicyclomine 10 MG Cap PO SCH ×4 (06:09→20:06)
[2019-02-28] MEDS: Acetaminophen 500 MG Tab PO PRN (06:24)
[2019-02-28] MEDS: Sodium Chloride 0.9% 10 ML Syringe IV PRN ×2 (07:03→19:59)
[2019-02-28] MEDS: predniSONE 20 MG Tab PO SCH (07:24)
[2019-02-28] MEDS: Gabapentin 300 MG Cap PO SCH ×3 (07:24→20:05)
[2019-02-28] MEDS: Sertraline 25 MG Tab PO SCH (07:24)
[2019-02-28] MEDS: Potassium Chloride 20 MEQ Packet PO SCH (07:25)
[2019-02-28] MEDS: HYDROmorphone 1 MG/ML Syringe IVPUSH PRN (07:26)
[2019-02-28] MEDS: Vancomycin 125 MG/2.5 ML Oral Solution 2.5 ML UD Cup PO SCH ×4 (07:27→19:59)
[2019-02-28] MEDS: AMYLASE PO SCH ×3 (07:29→17:26)
[2019-02-28] MEDS: PROTEASE PO SCH ×3 (07:29→17:26)
[2019-02-28] MEDS: LIPASE PO SCH ×3 (07:29→17:26)
[2019-02-28] MEDS: Lactobacillus Rhamnosus GG (Probiotic) Cap PO SCH (07:29)
[2019-02-28 07:52] LABS: ANION GAP 9.1 mmol/L (10-20)
[2019-02-28] MEDS ORDERED: diphenhydrAMINE 50 MG/ML SDV IVPUSH PRN (08:25)
[2019-02-28] MEDS: HYDROmorphone 2 MG Tab PO SCH ×3 (09:19→20:00)
[2019-02-28] MEDS: Metoclopramide 10 MG Tab PO SCH ×3 (09:20→16:19)
[2019-02-28] MEDS: Cyclobenzaprine 10 MG Tab PO PRN ×3 (09:20→22:57)
[2019-02-28] MEDS: Promethazine 25 MG Tab PO SCH ×3 (09:20→20:07)
[2019-02-28] MEDS: Menthol/Methyl Salicylate 85 GM Tube TOP PRN ×2 (09:21→16:23)
--- NOTE | 2019-02-28 09:23 | PCM.PN ---
- General Info Date of Service: 02/28/19 Subjective Update: 44 yo female admitted with nausea, vomiting, and diarrhea leading to CHARIS and dehydration in the setting of severe underlying Crohn's disease. Emesis last evening but then did get some rest overnight. Feels her food is getting stuck and backing up into her esophagus leading to vomiting when she lays down to go to sleep. Abdominal pain still present but is at her baseline. Nausea is more bothersome than her baseline. She has been up in the halls walking and feels her strength is holding steady. Joint pain perhaps more bothersome than her abdominal pain even. Continues with night sweats but has had no fever or chills. - Review of Systems General: Reports: Night Sweats. Denies: Fever, Chills HEENT: Reports: No Symptoms Pulmonary: Reports: No Symptoms Cardiovascular: Reports: No Symptoms Gastrointestinal: Reports: Abdominal Pain, Nausea, Vomiting Genitourinary: Reports: No Symptoms Musculoskeletal: Reports: Joint Pain Skin: Reports: No Symptoms - Patient Data Vitals - Most Recent: Last Vital Signs Temp 36.5 C 02/28/19 05:50 Pulse 81 02/28/19 05:50 Resp 18 02/28/19 05:50 BP 108/64 02/28/19 05:50 Pulse Ox 97 02/28/19 05:50 Weight - Most Recent: 39.009 kg I&O - Last 24 Hours: Intake & Output 02/27/19 02/28/19 02/28/19 22:59 06:59 14:59 Intake Total 1150 240 Output Total 800 950 400 Balance -800 200 -160 Lab Results Last 24 Hours: Laboratory Results - last 24 hr 02/27/19 02/27/19 02/27/19 Range/Units 06:25 06:25 12:05 WBC 13.2 H (4.0-10.0) x10^3/uL RBC 3.07 L (4.00-5.50) x10^6/uL Hgb 9.2 L (12.0-16.0) g/dL Hct 30.5 L (33.0-47.0) % MCV 99.3 H (78.0-93.0) fL MCH 30.0 (26.0-32.0) pg MCHC 30.2 L (32.0-36.0) g/dL RDW Coeff of Brianda 14.3 (10.0-15.0) % Plt Count 457 H (130-400) x10^3/uL Neut % (Auto) 84.9 H (50.0-80.0) % Lymph % (Auto) 9.8 L (25.0-50.0) % Trinity % (Auto) 5.1 (2.0-11.0) % Eos % (Auto) 0.0 (0.0-4.0) % Baso % (Auto) 0.2 (0.2-1.2) % ESR 34 H (0-21) mm/hr Sodium (136-145) mmol/L Potassium (3.5-5.1) mmol/L Chloride (98-107) mmol/L Carbon Dioxide (21-32) mmol/L Anion Gap (10-20) mmol/L BUN (7-18) mg/dL Creatinine (0.55-1.02) mg/dL Est Cr Clr Drug Dosing mL/min Estimated GFR (MDRD) Glucose (74-106) mg/dL Calcium (8.5-10.1) mg/dL C-Reactive Protein < 0.2 (<=0.9) mg/dL Lipase 94 (73-393) U/L 02/28/19 Range/Units 05:11 WBC (4.0-10.0) x10^3/uL RBC (4.00-5.50) x10^6/uL Hgb (12.0-16.0) g/dL Hct (33.0-47.0) % MCV (78.0-93.0) fL MCH (26.0-32.0) pg MCHC (32.0-36.0) g/dL RDW Coeff of Brianda (10.0-15.0) % Plt Count (130-400) x10^3/uL Neut % (Auto) (50.0-80.0) % Lymph % (Auto) (25.0-50.0) % Trinity % (Auto) (2.0-11.0) % Eos % (Auto) (0.0-4.0) % Baso % (Auto) (0.2-1.2) % ESR (0-21) mm/hr Sodium 143 (136-145) mmol/L Potassium 4.1 (3.5-5.1) mmol/L Chloride 108 H (98-107) mmol/L Carbon Dioxide 30 (21-32) mmol/L Anion Gap 9.1 L (10-20) mmol/L BUN 19 H (7-18) mg/dL Creatinine 1.4 H (0.55-1.02) mg/dL Est Cr Clr Drug Dosing 30.92 mL/min Estimated GFR (MDRD) 40 Glucose 89 (74-106) mg/dL Calcium 8.0 L (8.5-10.1) mg/dL C-Reactive Protein (<=0.9) mg/dL Lipase (73-393) U/L Med Orders - Current: Current Medications Acetaminophen (Tylenol Extra Strength) 1,000 mg PO TID PRN PRN Reason: Pain Last Admin: 02/28/19 06:24 Dose: 1,000 mg Amitriptyline HCl (Elavil) 50 mg PO BEDTIME [facility] Last Admin: 02/27/19 19:53 Dose: 50 mg Azathioprine (Imuran) 50 mg PO DAILY [facility] Last Admin: 02/28/19 07:24 Dose: 50 mg Cyclobenzaprine HCl (Flexeril) 5 mg PO TID PRN PRN Reason: Pain Last Admin: 02/27/19 19:51 Dose: 5 mg Dicyclomine HCl (Bentyl) 10 mg PO QIDACANDBED [facility] Last Admin: 02/28/19 06:09 Dose: 10 mg Diphenhydramine HCl (Benadryl) 25 mg IVPUSH Q8H PRN PRN Reason: Vomiting Famotidine (Pepcid) 20 mg PO BEDTIME [facility] Last Admin: 02/27/19 19:50 Dose: 20 mg Gabapentin (Neurontin) 300 mg PO TID [facility] Last Admin: 02/28/19 07:24 Dose: 300 mg Heparin Sodium (Porcine) (Heparin Lock Flush 100 Units/Ml) 500 units IVPUSH DAILY [facility] Last Admin: 02/28/19 07:28 Dose: 500 units Heparin Sodium (Porcine) (Heparin Lock Flush 100 Units/Ml) 500 units IVPUSH ASDIRECTED PRN PRN Reason: Keep Vein Open Last Admin: 02/28/19 07:04 Dose: 500 units Hydromorphone HCl (Dilaudid) 0.5 mg IVPUSH Q4H PRN PRN Reason: Pain Last Admin: 02/28/19 07:26 Dose: 0.5 mg Hydromorphone HCl (Dilaudid) 2 mg PO TID [facility] Lactated Ringer's (Ringers, Lactated) 1,000 mls @ 100 mls/hr IV BEDTIME [facility] Last Admin: 02/27/19 19:30 Dose: 100 mls/hr Lactobacillus Rhamnosus (Culturelle) 1 cap PO DAILY [facility] Last Admin: 02/28/19 07:29 Dose: 1 cap Lidocaine/Prilocaine (Emla Crm) 0 gm TOP DAILY PRN PRN Reason: Port Access Melatonin (Melatonin) 6 mg PO BEDTIME [facility] Last Admin: 02/27/19 19:53 Dose: 6 mg Methyl Salicylate (Icy Hot Cream) 0 gm TOP QID PRN PRN Reason: Pain (mild 1-3) Metoclopramide HCl (Reglan) 10 mg PO TIDAC [facility] Mirtazapine (Remeron) 15 mg PO BEDTIME [facility] Last Admin: 02/27/19 19:49 Dose: 15 mg Multi-Ingred Cream/Lotion/Oil/Oint (Zinc Oxide) 0 gm TOP Q2H PRN PRN Reason: Rash Dronabinol [Marinol] (5mg (Own Supply)) 0 mg PO BIDAC [facility] Last Admin: 02/28/19 06:09 Dose: 5 mg Amylase/Lipase/Protease. (Own Supply) 0 dose PO TIDMEALS [facility] Last Admin: 02/28/19 07:29 Dose: 1 dose Omeprazole (Omeprazole) 40 mg PO BIDAC [facility] Last Admin: 02/28/19 06:08 Dose: 40 mg Ondansetron HCl (Zofran Odt) 8 mg PO TID PRN PRN Reason: Nausea Last Admin: 02/28/19 07:23 Dose: 8 mg Potassium Chloride (Klor-Con) 20 meq PO DAILY [facility] Last Admin: 02/28/19 07:25 Dose: 20 meq Prednisone (Prednisone) 50 mg PO WITHBREAKFAST [facility] Last Admin: 02/28/19 07:24 Dose: 50 mg Promethazine HCl (Phenergan) 25 mg PO TID [facility] Scopolamine (Transderm-Scop) 1.5 mg TRDERM Q72H [facility] Last Admin: 02/27/19 17:29 Dose: 1.5 mg Sertraline HCl (Zoloft) 25 mg PO DAILY [facility] Last Admin: 02/28/19 07:24 Dose: 25 mg Simethicone (Simethicone) 80 mg PO QID PRN PRN Reason: Gas Sodium Chloride (Saline Flush) 20 ml IV BID [facility] Last Admin: 02/28/19 07:27 Dose: 20 ml Sodium Chloride (Saline Flush) 20 ml IV ASDIRECTED PRN PRN Reason: Keep Vein Open Last Admin: 02/28/19 07:03 Dose: 20 ml Trazodone HCl (Trazodone) 50 mg PO BEDTIME [facility] Last Admin: 02/27/19 19:54 Dose: 50 mg Vancomycin HCl (Vancocin 125 Mg/2.5 Ml Soln) 250 mg PO QID [facility] Last Admin: 02/28/19 07:27 Dose: 250 mg Discontinued Medications Diphenhydramine HCl (Benadryl) 25 mg IVPUSH ONETIME ONE Stop: 02/22/19 13:28 Last Admin: 02/22/19 14:03 Dose: 25 mg Diphenhydramine HCl (Benadryl) 25 mg PO Q6H PRN PRN Reason: Nausea Last Admin: 02/25/19 19:56 Dose: 25 mg Diphenhydramine HCl (Benadryl) 50 mg IVPUSH Q6H PRN PRN Reason: Nausea/Vomiting Last Admin: 02/27/19 11:16 Dose: 50 mg Hydromorphone HCl (Dilaudid) 0.25 mg IVPUSH ONETIME ONE Stop: 02/22/19 13:28 Last Admin: 02/22/19 14:03 Dose: 0.25 mg Hydromorphone HCl (Dilaudid) 0.25 mg IVPUSH Q4H PRN PRN Reason: Pain Last Admin: 02/24/19 08:50 Dose: 0.25 mg Hydromorphone HCl (Dilaudid) 0.5 mg IVPUSH Q4H PRN PRN Reason: Pain Last Admin: 02/27/19 14:04 Dose: 0.5 mg Hydromorphone HCl (Dilaudid) 1 mg PO Q4H PRN PRN Reason: Pain Last Admin: 02/27/19 19:47 Dose: 1 mg Lactated Ringer's (Ringers, Lactated) 1,000 mls @ 100 mls/hr IV ASDIRECTED [facility] Last Admin: 02/23/19 00:27 Dose: 100 mls/hr Lactated Ringer's (Ringers, Lactated) 1,000 mls @ 100 mls/hr IV ASDIRECTED [facility] Stop: 02/24/19 06:01 Last Admin: 02/23/19 20:03 Dose: 100 mls/hr Lactated Ringer's (Ringers, Lactated) 1,000 mls @ 100 mls/hr IV ASDIRECTED [facility] Stop: 02/25/19 07:00 Last Admin: 02/24/19 21:33 Dose: 100 mls/hr Methylprednisolone Sodium Succinate (Solu-Medrol) 40 mg IVPUSH Q12H [facility] Last Admin: 02/27/19 17:29 Dose: 40 mg Amylase/Lipase/Protease. (Own Supply) 1 dose PO TIDMEALS [facility] Last Admin: 02/23/19 12:06 Dose: Not Given Prochlorperazine Edisylate (Compazine) 5 mg IV ONETIME ONE Stop: 02/22/19 13:28 Last Admin: 02/22/19 14:04 Dose: 5 mg Prochlorperazine Edisylate (Compazine) 5 mg IV Q6H PRN PRN Reason: Nausea Last Admin: 02/28/19 05:59 Dose: 5 mg Prochlorperazine Edisylate (Compazine) 5 mg IV Q4HR PRN PRN Reason: Nausea/Vomiting Sodium Chloride (Saline Flush) 10 ml IV ASDIRECTED PRN PRN Reason: Keep Vein Open Last Admin: 02/23/19 19:55 Dose: 20 ml - Exam General: Alert, Cooperative, No Acute Distress HEENT: Mucous Membr. Moist/[place] Neck: Supple, Trachea Midline, No Thyromegaly. No: Lymphadenopathy Lungs: Clear to Auscultation, Normal Respiratory Effort Cardiovascular: Regular Rate, Regular Rhythm, No Murmurs GI/Abdominal Exam: Normal Bowel Sounds, Soft, No Organomegaly, No Distention, No Mass, Tender Extremities: Non-Tender, No Pedal Edema, Normal Capillary Refill Peripheral Pulses: 2+: Radial (L), Radial (R) Skin: Warm, Dry, Intact Neurological: No New Focal Deficit - Problem List & Annotations (1) Dehydration SNOMED Code(s): 88688375 Code(s): E86.0 - DEHYDRATION Status: Resolved Current Visit: No (2) CHARIS (acute kidney injury) SNOMED Code(s): 97082861 Code(s): N17.9 - ACUTE KIDNEY FAILURE, UNSPECIFIED Status: Resolved Current Visit: No (3) Chronic kidney disease SNOMED Code(s): 672399724 Code(s): N18.9 - CHRONIC KIDNEY DISEASE, UNSPECIFIED Status: Chronic Current Visit: No Qualifiers: Chronic kidney disease stage: stage 3 (moderate) Qualified Code(s): N18.3 - Chronic kidney disease, stage 3 (moderate) (4) Hyponatremia SNOMED Code(s): 02361584 Code(s): E87.1 - HYPO-OSMOLALITY AND HYPONATREMIA Status: Resolved Priority: Medium Current Visit: No (5) Hypokalemia SNOMED Code(s): 95194995 Code(s): E87.6 - HYPOKALEMIA Status: Resolved Priority: Medium Current Visit: No (6) Chronic abdominal pain SNOMED Code(s): 538857070 Code(s): R10.9 - UNSPECIFIED ABDOMINAL PAIN; G89.29 - OTHER CHRONIC PAIN Status: Chronic Priority: Medium Current Visit: No (7) Crohns disease SNOMED Code(s): 58424462 Code(s): K50.90 - CROHN'S DISEASE, UNSPECIFIED, WITHOUT COMPLICATIONS Status: Chronic Current Visit: No Qualifiers: Gastrointestinal tract location: unspecified location Digestive disease complication type: unspecified complication Qualified Code(s): K50.919 - Crohn 's disease, unspecified, with unspecified complications (8) Nausea & vomiting SNOMED Code(s): 41904993 Code(s): R11.2 - NAUSEA WITH VOMITING, UNSPECIFIED Status: Chronic Priority: Medium Current Visit: No Qualifiers: Vomiting type: unspecified Vomiting Intractability: non-intractable Qualified Code(s): R11.2 - Nausea with vomiting, unspecified (9) Severe malnutrition SNOMED Code(s): 65402729 Code(s): E43 - UNSPECIFIED SEVERE PROTEIN-CALORIE MALNUTRITION Status: Chronic Current Visit: No (10) Anxiety SNOMED Code(s): 24605016 Code(s): F41.9 - ANXIETY DISORDER, UNSPECIFIED Status: Chronic Current Visit: No - Problem List Review Problem List Initiated/Reviewed/Updated: Yes - My Orders Last 24 Hours: My Active Orders 02/27/19 11:33 EKG 12 Lead [EKG Documentation Completion] [RC] ROUTINE 02/27/19 17:00 Scopolamine [Transderm-Scop] 1.5 mg TRDERM Q72H 02/28/19 08:00 predniSONE 50 mg PO WITHBREAKFAST 02/28/19 08:17 Metoclopramide [Reglan] 10 mg PO TIDAC 02/28/19 08:24 Menthol/Methyl Salicylate [Icy Hot Cream] 0 gm TOP QID PRN 02/28/19 08:25 diphenhydrAMINE [Benadryl] 25 mg IVPUSH Q8H PRN 02/28/19 09:15 HYDROmorphone [Dilaudid] 2 mg PO TID Promethazine [Phenergan] 25 mg PO TID - Assessment Assessment:: 44 yo female admitted with dehydration and CHARIS secondary to acute on chronic abdominal pain, nausea, and vomiting related to underlying Crohn's. Labs stable on once daily IV fluids, which can be maintained as an outpatient. Still requiring IV medications for symptom control. - Plan Plan:: #1 Dehydration #2 Acute Kidney Injury, secondary to #1 #3 Chronic Kidney Disease, stage III, secondary to recurrent CHARIS #4 Hyponatremia, resolved #5 Hypokalemia - Creatinine 1.4 this morning - has been stable for a few days. - Will continue with the 1L overnight. She will continue this outpatient but during the daytime hours instead. - She is maintained on what she was on as an outpatient and this is no longer what is keeping her hospitalized; rather, see below regarding pain, nausea, and vomiting. - Continue the soft diet. - She will be seeing nephrology in March related to recurrent CHARIS in the setting of CKD. - Will continue plan for daily IV fluids through the ER upon discharge until she is able to better maintain hydration by mouth. - K stable on oral potassium supplements. #6 Chronic Abdominal Pain #7 Crohn's Disease #8 Nausea and vomiting - Patient has continued to struggle with pain and nausea. Work-up yesterday without evidence of any secondary causes, such as pancreatitis or SBO. Biopsies pending from [facility] where she did have an EGD and we will await these biopsies to see if she has any other infectious or inflammatory process to explain the symptoms. - For pain, will again transition to PO hydromorphone but will increase the dose to 2 mg and schedule this. She can still have the IV available PRN if she is not able to take PO medications. Will also add bengay for her joint pain. - For nausea, will d/c compazine and resume phenergan. Will also resume reglan as she was using this at home with some relief in symptoms and seems to be having some motility issues based on the description of her food backing up. Continue zofran and scopolamine. She will have the IV benadryl available PRN for not able to take oral medications. - Patient is transitioned from solu-medrol to prednisone today. - Also advised to use peppermint topically and louie for alternative methods to help with nausea. - Reviewed expectations of what will be resolved while she is hospitalized vs what will be addressed as an outpatient and she voices understanding. #9 Severe Malnutrition - Not currently using her feeding tube and is attempting to maintain nutrition with food intake by mouth. - She is currently keeping a food diary. - Will continue her soft diet. #10 Anxiety - Continue home medications. Patient will remain on acute today - working to transition to all PO medications as she is staying hydrated on fluids that can be maintained as an outpatient. Hopefully, she will be ready to d/c home tomorrow. If not, then we will reassess whether she needs transfer to [place]. She does not require transfer to a higher level of care at this time as she is improving, albeit slowly, and there is nothing they would likely do differently at this point. See details under problems above. Code status is full - discussed on admission. Pharmacologic VTE prophylaxis contraindicated given recent bright red rectal bleeding. She can be up and ambulating as able.
[2019-02-28] MEDS: Ondansetron 4 MG Tab.DIS PO SCH ×2 (10:54→16:20)
[2019-02-28] MEDS ORDERED: Acetaminophen 500 MG Tab PO SCH (11:00)
[2019-02-28] MEDS ORDERED: Acetaminophen 650 MG Tab.ER PO SCH (11:00)
[2019-02-28] MEDS: Acetaminophen 325 MG Tab PO SCH ×2 (11:30→16:20)
[2019-02-28] MEDS: Lactated Ringers 1,000 ML IV SCH (19:56)
[2019-02-28] MEDS: Mirtazapine 15 MG Tab PO SCH (20:03)
[2019-02-28] MEDS: Amitriptyline 25 MG Tab PO SCH (20:04)
[2019-02-28] MEDS: Melatonin 3 MG Tab PO SCH (20:05)
[2019-02-28] MEDS: Famotidine 20 MG Tab PO SCH (20:05)
[2019-02-28] MEDS: traZODone 50 MG Tab PO SCH (20:06)
[2019-03-01] MEDS: Omeprazole 20 MG Cap.CR PO SCH (06:01)
[2019-03-01] MEDS: Dicyclomine 10 MG Cap PO SCH ×2 (06:02→10:47)
[2019-03-01] MEDS: Ondansetron 4 MG Tab.DIS PO SCH ×2 (06:03→10:46)
[2019-03-01] MEDS: Metoclopramide 10 MG Tab PO SCH ×2 (06:03→10:46)
[2019-03-01] MEDS: Acetaminophen 325 MG Tab PO SCH ×2 (06:04→10:46)
[2019-03-01] MEDS: Sodium Chloride 0.9% 10 ML Syringe IV SCH ×2 (06:19→07:52)
[2019-03-01 07:13] LABS: ANION GAP 9.3 mmol/L (10-20)
[2019-03-01] MEDS: Gabapentin 300 MG Cap PO SCH ×2 (07:49→12:45)
[2019-03-01] MEDS: Potassium Chloride 20 MEQ Packet PO SCH (07:49)
[2019-03-01] MEDS: Lactobacillus Rhamnosus GG (Probiotic) Cap PO SCH (07:50)
[2019-03-01] MEDS: HYDROmorphone 2 MG Tab PO SCH ×2 (07:50→12:45)
[2019-03-01] MEDS: Sertraline 25 MG Tab PO SCH (07:50)
[2019-03-01] MEDS: predniSONE 20 MG Tab PO SCH (07:50)
[2019-03-01] MEDS: Promethazine 25 MG Tab PO SCH ×2 (07:50→12:46)
[2019-03-01] MEDS: AMYLASE PO SCH ×2 (07:51→12:46)
[2019-03-01] MEDS: LIPASE PO SCH ×2 (07:51→12:46)
[2019-03-01] MEDS: PROTEASE PO SCH ×2 (07:51→12:46)
[2019-03-01] MEDS: Vancomycin 125 MG/2.5 ML Oral Solution 2.5 ML UD Cup PO SCH ×2 (07:56→12:46)
--- NOTE | 2019-03-01 09:05 | PCM.DCSUM1 ---
Discharge Summary - Hospital Course Brief History: Mrs. Cota is a 44 yo female who was admitted with CHARIS and dehydration secondary to severe nausea, vomiting, and diarrhea. - Discharge Data Discharge Date: 03/01/19 Discharge Disposition: Home, Self-Care 01 Condition: Good - Discharge Diagnosis/Problem(s) (1) Dehydration SNOMED Code(s): 63481498 ICD Code: E86.0 - DEHYDRATION Status: Resolved Current Visit: No (2) CHARIS (acute kidney injury) SNOMED Code(s): 69909138 ICD Code: N17.9 - ACUTE KIDNEY FAILURE, UNSPECIFIED Status: Resolved Current Visit: No (3) Chronic kidney disease SNOMED Code(s): 148799407 ICD Code: N18.9 - CHRONIC KIDNEY DISEASE, UNSPECIFIED Status: Chronic Current Visit: No Qualifiers: Chronic kidney disease stage: stage 3 (moderate) Qualified Code(s): N18.3 - Chronic kidney disease, stage 3 (moderate) (4) Hyponatremia SNOMED Code(s): 25818824 ICD Code: E87.1 - HYPO-OSMOLALITY AND HYPONATREMIA Status: Resolved Priority: Medium Current Visit: No (5) Hypokalemia SNOMED Code(s): 87433260 ICD Code: E87.6 - HYPOKALEMIA Status: Resolved Priority: Medium Current Visit: No (6) Chronic abdominal pain SNOMED Code(s): 199877735 ICD Code: R10.9 - UNSPECIFIED ABDOMINAL PAIN; G89.29 - OTHER CHRONIC PAIN Status: Chronic Priority: Medium Current Visit: No (7) Crohns disease SNOMED Code(s): 12208017 ICD Code: K50.90 - CROHN'S DISEASE, UNSPECIFIED, WITHOUT COMPLICATIONS Status: Chronic Current Visit: No Qualifiers: Gastrointestinal tract location: unspecified location Digestive disease complication type: unspecified complication Qualified Code(s): K50.919 - Crohn 's disease, unspecified, with unspecified complications (8) Nausea & vomiting SNOMED Code(s): 80659192 ICD Code: R11.2 - NAUSEA WITH VOMITING, UNSPECIFIED Status: Chronic Priority: Medium Current Visit: No Qualifiers: Vomiting type: unspecified Vomiting Intractability: non-intractable Qualified Code(s): R11.2 - Nausea with vomiting, unspecified (9) Severe malnutrition SNOMED Code(s): 94596160 ICD Code: E43 - UNSPECIFIED SEVERE PROTEIN-CALORIE MALNUTRITION Status: Chronic Current Visit: No (10) Anxiety SNOMED Code(s): 98166601 ICD Code: F41.9 - ANXIETY DISORDER, UNSPECIFIED Status: Chronic Current Visit: No - Patient Summary/Data Operative Procedure(s) Performed: none Complications: none Consults: none Labs Pending at D/C: none Recommended Follow-up Testing/Procedures: none Planned Operative Procedure(s) after DC: none Hospital Course: Patient was admitted and given IV fluids. Her labs improved and she was weaned to 1 L/day of IV fluids. Her creatinine has remained stable for >3 days with the 1L of fluids/day. Her symptoms continued to be difficult to control and she was requiring IV pain and nausea medication up until yesterday morning. Earlier this week, additional labs and an abdominal x-ray were obtained to rule out other causes for her symptoms and these were unrevealing. It is felt her symptoms are secondary to the extensive testing she underwent at [place] the week prior. For the past 24 hours, her symptoms have been reasonably controlled on oral medications. She does still feel nauseous and has vomited a couple of times but has been more successful at keeping food and liquids down. We did discuss that it is not likely realistic at this point to resolve the vomiting completely while she is hospitalized but that we will continue to work on this as an outpatient. She voices understanding and is in agreement with this plan. She will follow-up in clinic tomorrow with lab prior to the appointment. We are also working on figuring out what her follow-up plan is with GI. She will continue getting IV fluids daily through the ER and we will plan to monitor her labs twice/week. - Discharge Plan *PRESCRIPTION DRUG MONITORING PROGRAM REVIEWED*: No *COPY OF PRESCRIPTION DRUG MONITORING REPORT IN PATIENT CHELSEY: No Prescriptions/Med Rec: Lidocaine/Prilocaine [EMLA Crm] 5 gm TP DAILY PRN #1 tube PRN Reason: Port Access Metoclopramide HCl [Reglan] 5 mg PO TID #90 tablet Scopolamine [Transderm-Scop] 1.5 mg TRDERM Q72H #30 patch Home Medications: Home Meds Dicyclomine [Bentyl] 10 mg PO QID 05/03/18 [History] Ondansetron HCl [Ondansetron] 8 mg PO TID PRN 05/03/18 [History] Ranitidine HCl [Ranitidine] 150 mg PO BEDTIME 05/03/18 [History] Lactobacillus Rhamnosus GG [Culturelle] 1 cap PO DAILY 09/01/18 [History] Amitriptyline [Elavil] 50 mg PO BEDTIME 11/23/18 [History] Cod Liver Oil/Zinc Oxide [Desitin Diaper Rash 40% Paste] 1 appful TOP Q2H PRN [History] Dronabinol [Marinol] 5 mg PO BIDAC 11/23/18 [History] Gabapentin [Neurontin] 300 mg PO TID 11/23/18 [History] Hydrocortisone [Anusol-HC] 1 appful RC QID PRN 11/23/18 [History] Melatonin 6 mg PO BEDTIME 11/23/18 [History] Mirtazapine [Remeron] 15 mg PO BEDTIME 11/23/18 [History] Omeprazole Magnesium [Prilosec Otc] 40 mg PO BIDAC 11/23/18 [History] Promethazine [Phenergan] 25 mg PO TID 11/23/18 [History] Simethicone 80 mg PO QID PRN 11/23/18 [History] traZODone HCl [Trazodone HCl] 50 mg PO BEDTIME 11/23/18 [History] Amylase/Lipase/Protease [Creon DR 24,000 Unit] 1 cap PO TIDMEALS 02/22/19 [ History] Cyclobenzaprine [Flexeril] 5 mg PO TID PRN 02/22/19 [History] Potassium Chloride 20 meq PO DAILY 02/22/19 [History] Sertraline [Zoloft] 25 mg PO DAILY 02/22/19 [History] Vancomycin [Vancomycin 50 MG/ML Soln] 250 mg PO QID 02/22/19 [History] azaTHIOprine [Imuran] 50 mg PO DAILY 02/22/19 [History] Acetaminophen [Tylenol] 650 mg PO TIDAC tablet 03/01/19 [Rx] HYDROmorphone [Dilaudid] 2 mg PO TID tablet 03/01/19 [Rx] Lidocaine/Prilocaine [EMLA Crm] 5 gm TP DAILY PRN #1 tube 03/01/19 [Rx] Menthol/Methyl Salicylate [Icy Hot] 0 gm TOP QID PRN tube 03/01/19 [Rx] Metoclopramide HCl [Reglan] 5 mg PO TID #90 tablet 03/01/19 [Rx] Scopolamine [Transderm-Scop] 1.5 mg TRDERM Q72H #30 patch 03/01/19 [Rx] predniSONE [Prednisone] 40 mg PO DAILY #0 03/01/19 [Rx] Referrals: Xiomy Oliva MD [Primary Care Provider] - 03/02/19 9:00 am (You have a follow up appt. with Dr. Damaris Oliva on March 02, 2019 at 9AM----[facility]) - Discharge Summary/Plan Comment DC Time >30 min.: No - General Info Date of Service: 03/01/19 Subjective Update: Patient slept well last night. Does not know if nausea has really improved but is not worse. Has vomited x 2 in the past 24 hours. Keeping more down in terms of food and liquids. Abdominal pain is stable and controlled. No new symptoms. - Review of Systems General: Reports: No Symptoms HEENT: Reports: No Symptoms Pulmonary: Reports: No Symptoms Cardiovascular: Reports: No Symptoms Genitourinary: Reports: No Symptoms Skin: Reports: No Symptoms - Patient Data Vitals - Most Recent: Last Vital Signs Temp 36.6 C 03/01/19 06:00 Pulse 78 03/01/19 06:00 Resp 18 03/01/19 06:00 BP 118/78 03/01/19 06:00 Pulse Ox 97 03/01/19 06:00 Weight - Most Recent: 39.009 kg I&O - Last 24 hours: Intake & Output 02/28/19 03/01/19 03/01/19 22:59 06:59 14:59 Intake Total 480 1400 240 Output Total 600 2200 Balance -120 -800 240 Lab Results - Last 24 hrs: Laboratory Results - last 24 hr 03/01/19 Range/Units 06:16 Sodium 144 (136-145) mmol/L Potassium 4.3 (3.5-5.1) mmol/L Chloride 106 (98-107) mmol/L Carbon Dioxide 33 H (21-32) mmol/L Anion Gap 9.3 L (10-20) mmol/L BUN 25 H (7-18) mg/dL Creatinine 1.4 H (0.55-1.02) mg/dL Est Cr Clr Drug Dosing 30.92 mL/min Estimated GFR (MDRD) 40 Glucose 102 (74-106) mg/dL Calcium 8.1 L (8.5-10.1) mg/dL Med Orders - Current: Current Medications Acetaminophen (Tylenol) 650 mg PO TIDAC [facility] Last Admin: 03/01/19 06:04 Dose: 650 mg Amitriptyline HCl (Elavil) 50 mg PO BEDTIME [facility] Last Admin: 02/28/19 20:04 Dose: 50 mg Azathioprine (Imuran) 50 mg PO DAILY [facility] Last Admin: 03/01/19 07:49 Dose: 50 mg Cyclobenzaprine HCl (Flexeril) 5 mg PO TID PRN PRN Reason: Pain Last Admin: 02/28/19 22:57 Dose: 5 mg Dicyclomine HCl (Bentyl) 10 mg PO QIDACANDBED [facility] Last Admin: 03/01/19 06:02 Dose: 10 mg Famotidine (Pepcid) 20 mg PO BEDTIME [facility] Last Admin: 02/28/19 20:05 Dose: 20 mg Gabapentin (Neurontin) 300 mg PO TID [facility] Last Admin: 03/01/19 07:49 Dose: 300 mg Heparin Sodium (Porcine) (Heparin Lock Flush 100 Units/Ml) 500 units IVPUSH DAILY [facility] Last Admin: 03/01/19 07:52 Dose: Not Given Heparin Sodium (Porcine) (Heparin Lock Flush 100 Units/Ml) 500 units IVPUSH ASDIRECTED PRN PRN Reason: Keep Vein Open Last Admin: 02/28/19 07:04 Dose: 500 units Hydromorphone HCl (Dilaudid) 2 mg PO TID [facility] Last Admin: 03/01/19 07:50 Dose: 2 mg Lactated Ringer's (Ringers, Lactated) 1,000 mls @ 100 mls/hr IV BEDTIME [facility] Last Admin: 02/28/19 19:56 Dose: 100 mls/hr Lactobacillus Rhamnosus (Culturelle) 1 cap PO DAILY [facility] Last Admin: 03/01/19 07:50 Dose: 1 cap Lidocaine/Prilocaine (Emla Crm) 0 gm TOP DAILY PRN PRN Reason: Port Access Melatonin (Melatonin) 6 mg PO BEDTIME [facility] Last Admin: 02/28/19 20:05 Dose: 6 mg Methyl Salicylate (Icy Hot Cream) 0 gm TOP QID PRN PRN Reason: Pain (mild 1-3) Last Admin: 02/28/19 16:23 Dose: 1 applic Metoclopramide HCl (Reglan) 10 mg PO TIDAC [facility] Last Admin: 03/01/19 06:03 Dose: 10 mg Mirtazapine (Remeron) 15 mg PO BEDTIME [facility] Last Admin: 02/28/19 20:03 Dose: 15 mg Multi-Ingred Cream/Lotion/Oil/Oint (Zinc Oxide) 0 gm TOP Q2H PRN PRN Reason: Rash Dronabinol [Marinol] (5mg (Own Supply)) 0 mg PO BIDAC [facility] Last Admin: 03/01/19 06:08 Dose: 5 mg Amylase/Lipase/Protease. (Own Supply) 0 dose PO TIDMEALS [facility] Last Admin: 03/01/19 07:51 Dose: 1 dose Omeprazole (Omeprazole) 40 mg PO BIDAC [facility] Last Admin: 03/01/19 06:01 Dose: 40 mg Ondansetron HCl (Zofran Odt) 8 mg PO TIDAC [facility] Last Admin: 03/01/19 06:03 Dose: 8 mg Potassium Chloride (Klor-Con) 20 meq PO DAILY [facility] Last Admin: 03/01/19 07:49 Dose: 20 meq Prednisone (Prednisone) 50 mg PO WITHBREAKFAST [facility] Last Admin: 03/01/19 07:50 Dose: 50 mg Promethazine HCl (Phenergan) 25 mg PO TID [facility] Last Admin: 03/01/19 07:50 Dose: 25 mg Scopolamine (Transderm-Scop) 1.5 mg TRDERM Q72H [facility] Last Admin: 02/27/19 17:29 Dose: 1.5 mg Sertraline HCl (Zoloft) 25 mg PO DAILY [facility] Last Admin: 03/01/19 07:50 Dose: 25 mg Simethicone (Simethicone) 80 mg PO QID PRN PRN Reason: Gas Last Admin: 02/28/19 22:57 Dose: 80 mg Sodium Chloride (Saline Flush) 20 ml IV BID [facility] Last Admin: 03/01/19 07:52 Dose: Not Given Sodium Chloride (Saline Flush) 20 ml IV ASDIRECTED PRN PRN Reason: Keep Vein Open Last Admin: 02/28/19 19:59 Dose: 20 ml Trazodone HCl (Trazodone) 50 mg PO BEDTIME [facility] Last Admin: 02/28/19 20:06 Dose: 50 mg Vancomycin HCl (Vancocin 125 Mg/2.5 Ml Soln) 250 mg PO QID [facility] Last Admin: 03/01/19 07:56 Dose: 125 mg Discontinued Medications Acetaminophen (Tylenol Extra Strength) 1,000 mg PO TID PRN PRN Reason: Pain Last Admin: 02/28/19 06:24 Dose: 1,000 mg Acetaminophen (Tylenol Extra Strength) 1,000 mg PO TIDAC [facility] Acetaminophen (Tylenol Arthritis Pain) 650 mg PO TIDAC [facility] Last Admin: 02/28/19 11:25 Dose: Not Given Diphenhydramine HCl (Benadryl) 25 mg IVPUSH ONETIME ONE Stop: 02/22/19 13:28 Last Admin: 02/22/19 14:03 Dose: 25 mg Diphenhydramine HCl (Benadryl) 25 mg PO Q6H PRN PRN Reason: Nausea Last Admin: 02/25/19 19:56 Dose: 25 mg Diphenhydramine HCl (Benadryl) 50 mg IVPUSH Q6H PRN PRN Reason: Nausea/Vomiting Last Admin: 02/27/19 11:16 Dose: 50 mg Diphenhydramine HCl (Benadryl) 25 mg IVPUSH Q8H PRN PRN Reason: Vomiting Hydromorphone HCl (Dilaudid) 0.25 mg IVPUSH ONETIME ONE Stop: 02/22/19 13:28 Last Admin: 02/22/19 14:03 Dose: 0.25 mg Hydromorphone HCl (Dilaudid) 0.25 mg IVPUSH Q4H PRN PRN Reason: Pain Last Admin: 02/24/19 08:50 Dose: 0.25 mg Hydromorphone HCl (Dilaudid) 0.5 mg IVPUSH Q4H PRN PRN Reason: Pain Last Admin: 02/27/19 14:04 Dose: 0.5 mg Hydromorphone HCl (Dilaudid) 1 mg PO Q4H PRN PRN Reason: Pain Last Admin: 02/27/19 19:47 Dose: 1 mg Hydromorphone HCl (Dilaudid) 0.5 mg IVPUSH Q4H PRN PRN Reason: Pain Last Admin: 02/28/19 07:26 Dose: 0.5 mg Lactated Ringer's (Ringers, Lactated) 1,000 mls @ 100 mls/hr IV ASDIRECTED [facility] Last Admin: 02/23/19 00:27 Dose: 100 mls/hr Lactated Ringer's (Ringers, Lactated) 1,000 mls @ 100 mls/hr IV ASDIRECTED [facility] Stop: 02/24/19 06:01 Last Admin: 02/23/19 20:03 Dose: 100 mls/hr Lactated Ringer's (Ringers, Lactated) 1,000 mls @ 100 mls/hr IV ASDIRECTED [facility] Stop: 02/25/19 07:00 Last Admin: 02/24/19 21:33 Dose: 100 mls/hr Methylprednisolone Sodium Succinate (Solu-Medrol) 40 mg IVPUSH Q12H [facility] Last Admin: 02/27/19 17:29 Dose: 40 mg Amylase/Lipase/Protease. (Own Supply) 1 dose PO TIDMEALS [facility] Last Admin: 02/23/19 12:06 Dose: Not Given Ondansetron HCl (Zofran Odt) 8 mg PO TID PRN PRN Reason: Nausea Last Admin: 02/28/19 07:23 Dose: 8 mg Prochlorperazine Edisylate (Compazine) 5 mg IV ONETIME ONE Stop: 02/22/19 13:28 Last Admin: 02/22/19 14:04 Dose: 5 mg Prochlorperazine Edisylate (Compazine) 5 mg IV Q6H PRN PRN Reason: Nausea Last Admin: 02/28/19 05:59 Dose: 5 mg Prochlorperazine Edisylate (Compazine) 5 mg IV Q4HR PRN PRN Reason: Nausea/Vomiting Sodium Chloride (Saline Flush) 10 ml IV ASDIRECTED PRN PRN Reason: Keep Vein Open Last Admin: 02/23/19 19:55 Dose: 20 ml - Exam General: Reports: Alert, Cooperative, No Acute Distress HEENT: Reports: Mucous Membr. Moist/[place] Neck: Reports: Supple, Trachea Midline, No Thyromegaly. Denies: Lymphadenopathy Lungs: Reports: Clear to Auscultation, Normal Respiratory Effort Cardiovascular: Reports: Regular Rate, Regular Rhythm, No Murmurs GI/Abdominal Exam: Normal Bowel Sounds, Soft, No Organomegaly, No Distention, No Mass, Tender (diffusely without any rebound, rigidity, or guarding) Extremities: Non-Tender, No Pedal Edema, Normal Capillary Refill Skin: Reports: Warm, Dry, Intact *Q Meaningful Use (DIS) - VTE *Q VTE Anticoagulation Contraindications: Med/TX Not Indicated/Need
[2019-03-01] MEDS ORDERED: Lactated Ringers 1,000 ML IV SCH (09:45)
== END 2019-03-01 15:20 | disposition home or self-care (01) | DRG 469 ==
LOC: VM.MS 12:32 → UNDOADMOB 12:32 → VM.MS 12:35 → UNDOADMOB 13:26 → INTOOBSV 02-23 14:25 → OBSVTOIN 02-23 14:25 → VM.MS 03-01 09:14 → UNDODISIN 03-01 15:20
PROVIDERS: ADMIT Family Medicine; ATTEND Family Medicine
DX: N17.9 Acute kidney failure, unspecified (principal); E43 Unspecified severe protein-calorie malnutrition; E86.0 Dehydration; K50.90 Crohn's disease, unspecified, without complications; N18.3 Chronic kidney disease, stage 3 (moderate); E87.1 Hypo-osmolality and hyponatremia; K21.9 Gastro-esophageal reflux disease without esophagitis; G89.29 Other chronic pain; M54.9 Dorsalgia, unspecified; D64.9 Anemia, unspecified; F41.9 Anxiety disorder, unspecified; E87.6 Hypokalemia; Z88.5 Allergy status to narcotic agent; Z90.49 Acquired absence of other specified parts of digestive tract; Z88.0 Allergy status to penicillin; Z79.899 Other long term (current) drug therapy; Z79.52 Long term (current) use of systemic steroids; Z68.1 Body mass index [BMI] 19.9 or less, adult
CPT/HCPCS: 36415; 74019; 80048; 83690; 83735; 85025; 85652; 86140; 93005; A9270-GY; J0780; J1170; J1200; J1642; J2920; J7120; J7500

== ENCOUNTER 2019-03-13 11:14 | Emergency (ER) | payer BC, OTHER ==
[2019-03-13] MEDS ORDERED: HYDROmorphone 1 MG/ML Syringe IVPUSH ONE ×2 (11:39→13:43)
--- NOTE | 2019-03-13 11:39 | EDM.PDOC ---
ED HPI GENERAL MEDICAL PROBLEM - General Stated Complaint: abdominal pain Time Seen by Provider: 03/13/19 11:39 Source of Information: Reports: Patient, Old Records History Limitations: Reports: No Limitations - History of Present Illness INITIAL COMMENTS - FREE TEXT/NARRATIVE: Patient was here for infusion. She started having a great deal of lower abdominal pain. This is mainly in the right lower quadrant. Patient does have a long-standing history of Crohn's disease. She was scheduled see her doctor today but she is unable to get the appointment. I did do a CMP and dig show that she was low on potassium at 2.7. He was previously 3.1. She has been on oral potassium of 20 daily. She says that she has not been missing this. I did talk to Dr. Comer and she agreed with the IV potassium. She also said that she would make the appointment for the patient in the morning. I did give the patient to 20 mEq potassium riders and also told her to take a second oral potassium later today and she will have her chemistry done in the morning. Patient did find relief with her pain medications. She was given Dilaudid and Compazine and Benadryl. She has had a recent CAT scan in the last couple of weeks. Guarding and no rebound tenderness per se. Onset: Today, Sudden Location: Reports: Abdomen Quality: Reports: Same as Previous Episode, Sharp Severity: Severe Improves with: Reports: None Associated Symptoms: Reports: No Other Symptoms Right Lower Abdomen Pain Score (Numeric/FACES): 8 - Related Data Allergies Allergy/AdvReac Type Severity Reaction Status Date / Time codeine Allergy Severe Anaphylactic Verified 03/13/19 15:07 Shock Penicillins Allergy Severe Anaphylactic Verified 03/13/19 15:07 Shock propoxyphene Allergy Severe Anaphylactic Verified 03/13/19 15:07 [From Darvocet-N] Shock lactose AdvReac Diarrhea Verified 03/13/19 15:07 metoclopramide [From Reglan] AdvReac Stomach Verified 03/13/19 15:07 Ache morphine AdvReac Headache Verified 03/13/19 15:07 Home Meds: Home Meds Dicyclomine [Bentyl] 10 mg PO QID 05/03/18 [History] Ondansetron HCl [Ondansetron] 8 mg PO TID PRN 05/03/18 [History] Ranitidine HCl [Ranitidine] 150 mg PO BEDTIME 05/03/18 [History] Lactobacillus Rhamnosus GG [Culturelle] 1 cap PO DAILY 09/01/18 [History] Amitriptyline [Elavil] 50 mg PO BEDTIME 11/23/18 [History] Cod Liver Oil/Zinc Oxide [Desitin Diaper Rash 40% Paste] 1 appful TOP Q2H PRN [History] Dronabinol [Marinol] 5 mg PO BIDAC 11/23/18 [History] Gabapentin [Neurontin] 300 mg PO TID 11/23/18 [History] Hydrocortisone [Anusol-HC] 1 appful RC QID PRN 11/23/18 [History] Melatonin 6 mg PO BEDTIME 11/23/18 [History] Mirtazapine [Remeron] 15 mg PO BEDTIME 11/23/18 [History] Omeprazole Magnesium [Prilosec Otc] 40 mg PO BIDAC 11/23/18 [History] Promethazine [Phenergan] 25 mg PO TID 11/23/18 [History] Simethicone 80 mg PO QID PRN 11/23/18 [History] traZODone HCl [Trazodone HCl] 50 mg PO BEDTIME 11/23/18 [History] Amylase/Lipase/Protease [Johnna DR 24,000 Unit] 1 cap PO TIDMEALS 02/22/19 [ History] Cyclobenzaprine [Flexeril] 5 mg PO TID PRN 02/22/19 [History] Potassium Chloride 20 meq PO DAILY 02/22/19 [History] Sertraline [Zoloft] 25 mg PO DAILY 02/22/19 [History] Vancomycin [Vancomycin 50 MG/ML Soln] 250 mg PO QID 02/22/19 [History] azaTHIOprine [Imuran] 50 mg PO DAILY 02/22/19 [History] Acetaminophen [Tylenol] 650 mg PO TIDAC tablet 03/01/19 [Rx] HYDROmorphone [Dilaudid] 2 mg PO TID tablet 03/01/19 [Rx] Lidocaine/Prilocaine [EMLA Crm] 5 gm TP DAILY PRN #1 tube 03/01/19 [Rx] Menthol/Methyl Salicylate [Icy Hot] 0 gm TOP QID PRN tube 03/01/19 [Rx] Metoclopramide HCl [Reglan] 5 mg PO TID #90 tablet 03/01/19 [Rx] Scopolamine [Transderm-Scop] 1.5 mg TRDERM Q72H #30 patch 03/01/19 [Rx] predniSONE [Prednisone] 40 mg PO DAILY #0 03/01/19 [Rx] Past Medical History HEENT History: Reports: None Cardiovascular History: Reports: None Respiratory History: Reports: None Gastrointestinal History: Reports: GERD, Inflammatory Bowel Disease Other Gastrointestinal History: crohn's disease. 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 Musculoskeletal History: Reports: Back Pain, Chronic Neurological History: Reports: None Psychiatric History: Reports: Anxiety Endocrine/Metabolic History: Reports: None Hematologic History: Reports: Anemia Immunologic History: Reports: Immunosuppression Oncologic (Cancer) History: Reports: None Dermatologic History: Reports: None - Infectious Disease History Infectious Disease History: Reports: C-Difficile - Past Surgical History GI Surgical History: Reports: Appendectomy, Cholecystectomy, Colonoscopy, Other (See Below) Other GI Surgeries/Procedures: partial sigmoidectomy Social & Family History - Family History Family Medical History: Noncontributory Neurological: Reports: Parkinson's Oncologic: Reports: Brain, Liver - Caffeine Use Caffeine Use: Reports: Coffee - Living Situation & Occupation Living situation: Reports: , with Significant Other (from [place] but staying with her daughter in [place]) 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 ED EXAM, GI/ABD - Physical Exam Exam: See Below Exam Limited By: No Limitations General Appearance: Alert Respiratory/Chest: No Respiratory Distress, Lungs Clear, Normal Breath Sounds, No Accessory Muscle Use, Chest Non-Tender Cardiovascular: Normal Peripheral Pulses, Regular Rate, Rhythm, No Edema, No Gallop, No JVD, No Murmur, No Rub GI/Abdominal Exam: Other (Pain about the right lower quadrant. Guarding. No rebound tenderness per se. Appetite has been affected.) Course - Vital Signs Last Recorded V/S: Last Vital Signs Temp 37.2 C 03/13/19 12:34 Pulse 89 03/13/19 12:34 Resp 16 03/13/19 12:34 BP 112/60 03/13/19 12:34 Pulse Ox 98 03/13/19 12:34 - Orders/Labs/Meds Labs: Laboratory Tests 03/13/19 03/13/19 Range/Units 11:45 11:45 WBC 11.5 H (4.0-10.0) x10^3/uL RBC 3.51 L (4.00-5.50) x10^6/uL Hgb 10.3 L (12.0-16.0) g/dL Hct 32.0 L (33.0-47.0) % MCV 91.2 D (78.0-93.0) fL MCH 29.3 (26.0-32.0) pg MCHC 32.2 (32.0-36.0) g/dL RDW Coeff of Brianda 14.0 (10.0-15.0) % Plt Count 487 H (130-400) x10^3/uL Neut % (Auto) 74.0 (50.0-80.0) % Lymph % (Auto) 16.5 L (25.0-50.0) % [place] % (Auto) 8.0 (2.0-11.0) % Eos % (Auto) 1.0 (0.0-4.0) % Baso % (Auto) 0.5 (0.2-1.2) % Sodium 135 L (136-145) mmol/L Potassium 2.7 L* (3.5-5.1) mmol/L Chloride 97 L (98-107) mmol/L Carbon Dioxide 29 (21-32) mmol/L Anion Gap 11.7 (10-20) mmol/L BUN 18 (7-18) mg/dL Creatinine 1.5 H (0.55-1.02) mg/dL Est Cr Clr Drug Dosing TNP Estimated GFR (MDRD) 37 Glucose 65 L (74-106) mg/dL Calcium 8.8 (8.5-10.1) mg/dL Corrected Calcium 9.44 (8.5-10.1) mg/dL Total Bilirubin 0.2 (0.2-1.0) mg/dL AST 14 L (15-37) U/L ALT 25 (14-59) U/L Alkaline Phosphatase 83 (46-116) U/L C-Reactive Protein 0.6 (<=0.9) mg/dL Total Protein 6.8 (6.4-8.2) g/dL Albumin 3.2 L (3.4-5.0) g/dL Globulin 3.6 Albumin/Globulin Ratio 0.89 Meds: Medications Discontinued Medications Generic Name Dose Route Start Last Admin Trade Name Freq PRN Reason Stop Dose Admin Diphenhydramine HCl 50 mg 03/13/19 11:40 03/13/19 12:04 Benadryl IVPUSH 03/13/19 11:41 50 mg ONETIME ONE Administration Heparin Sodium (Porcine) 500 units 03/13/19 14:35 03/13/19 14:35 Heparin Lock Flush 100 Units/Ml IVPUSH 500 units ASDIRECTED PRN Administration Keep Vein Open Hydromorphone HCl 1 mg 03/13/19 11:39 03/13/19 12:05 Dilaudid IVPUSH 03/13/19 11:40 1 mg ONETIME ONE Administration Hydromorphone HCl 1 mg 03/13/19 13:43 03/13/19 13:53 Dilaudid IVPUSH 03/13/19 13:44 1 mg ONETIME ONE Administration Lactated Ringer's 1,000 mls @ 999 mls/hr 03/13/19 12:06 03/13/19 12:18 Ringers, Lactated IV 03/13/19 13:06 999 mls/hr ONETIME ONE Administration Potassium Acetate 40 meq/ 120 mls @ 25 mls/hr 03/13/19 12:09 Sodium Chloride IV 03/13/19 16:56 ONETIME ONE Potassium Chloride 20 meq/ 50 mls @ 50 mls/hr 03/13/19 12:22 03/13/19 12:28 Premix IV 03/13/19 13:21 50 mls/hr ONETIME ONE Administration Potassium Chloride 20 meq/ 50 mls @ 50 mls/hr 03/13/19 12:45 03/13/19 13:45 Premix IV 03/13/19 13:44 50 mls/hr Q1H [facility]ARY Administration Prochlorperazine Edisylate 10 mg 03/13/19 11:40 03/13/19 12:05 Compazine IV 03/13/19 11:41 10 mg ONETIME ONE Administration Departure - Departure Time of Disposition: 13:08 Disposition: Home, Self-Care 01 Condition: Good Clinical Impression: Hypokalemia Abdominal pain Qualifiers: Abdominal location: generalized Qualified Code(s): R10.84 - Generalized abdominal pain - Discharge Information *PRESCRIPTION DRUG MONITORING PROGRAM REVIEWED*: Not Applicable *COPY OF PRESCRIPTION DRUG MONITORING REPORT IN PATIENT CHELSEY: Not Applicable Forms: ED Department Discharge Additional Instructions: Take an extra potassium pill today. See Dr. Oliva at 8 AM tomorrow. She will check your potassium again in the AM.
[2019-03-13] MEDS ORDERED: diphenhydrAMINE 50 MG/ML SDV IVPUSH ONE (11:40)
[2019-03-13] MEDS ORDERED: Prochlorperazine 10 MG/2 ML SDV IV ONE (11:40)
[2019-03-13 12:03] LABS: CHLORIDE,CL 97 mmol/L (98-107); SODIUM,NA 135 mmol/L (136-145)
[2019-03-13] MEDS ORDERED: Lactated Ringers 1,000 ML IV ONE (12:06)
[2019-03-13 12:08] LABS: ANION GAP 11.7 mmol/L (10-20)
[2019-03-13] MEDS ORDERED: Potassium Chloride Riders 20 MEQ in Premix Bag 1 BAG IV ONE ×2 (12:22→12:24)
[2019-03-13] MEDS ORDERED: Potassium Chloride Riders 20 MEQ in Premix Bag 1 BAG IV SCH (12:45)
== END 2019-03-13 14:40 | disposition home or self-care (01) ==
LOC: VM.ED 11:14
DX: R10.84 Generalized abdominal pain (principal); E87.6 Hypokalemia; K21.9 Gastro-esophageal reflux disease without esophagitis; N18.9 Chronic kidney disease, unspecified; Z79.899 Other long term (current) drug therapy; Z88.0 Allergy status to penicillin; Z88.5 Allergy status to narcotic agent
CPT/HCPCS: 80053; 85025; 86140; 96361; 96365; 96375; 96376; 99284; J0780; J1170; J1200; J1642; J3480; J7120; 36415

== ENCOUNTER 2019-03-16 13:45 | Observation (INO) | payer BC, OTHER ==
[2019-03-16] MEDS: Lactated Ringers 1,000 ML IV SCH (14:55)
[2019-03-16] MEDS: HYDROmorphone 1 MG/ML Syringe IVPUSH PRN ×2 (14:55→20:08)
[2019-03-16] MEDS: diphenhydrAMINE 50 MG/ML SDV IVPUSH PRN (16:02)
[2019-03-16] MEDS ORDERED: Dicyclomine 10 MG Cap PO PRN (17:10)
[2019-03-16] MEDS ORDERED: Lidocaine/Prilocaine 2.5-2.5% Crm 5 GM Tube TOP PRN (17:10)
[2019-03-16] MEDS ORDERED: DOXYLAMINE SUCCINATE 25 MG PO PRN (17:10)
[2019-03-16] MEDS ORDERED: Menthol/Zinc Oxide Ointment 3.5 GM Tube TOP PRN (17:10)
[2019-03-16] MEDS ORDERED: Simethicone 80 MG Tab.Chew PO PRN (17:10)
[2019-03-16] MEDS ORDERED: Menthol/Methyl Salicylate 85 GM Tube TOP PRN (17:10)
[2019-03-16] MEDS ORDERED: Cyclobenzaprine 10 MG Tab PO PRN (17:10)
--- NOTE | 2019-03-16 17:28 | PCM.HP ---
H&P History of Present Illness - General Date of Service: 03/16/19 Admit Problem/Dx: Admission Diagnosis/Problem Admission Diagnosis/Problem Dehydration Source of Information: Patient History Limitations: Reports: No Limitations - History of Present Illness Initial Comments - Free Text/Narative: Mrs. Cota is a 44 yo female with a very complicated medical history and history of recurrent hospitalizations for dehydration and CHARIS who presented to clinic today for evaluation as recommended after her labs returned with a creatinine of 3.1. Since I saw her last in clinic 2 days ago, she has had increased nausea and vomiting. She vomited "countless" times yesterday and today and does not feel she has kept much down at all. She has had ongoing severe abdominal pain as well. Her stools have slowed down to 5/day and the amount of blood in the stools is decreased as well. Over the past 2 days, she has felt increasingly weak as well as lightheaded when up and around. She is not surprised that her labs looked worse today. She has been taking all of her anti-emetics as prescribed. She has not taken any dilaudid at home as she does not like to take this unless absolutely necessary. She has had ongoing night sweats and joint pain as well. No other new symptoms. Right Upper Abdomen Pain Score (Numeric/FACES): 8 - Related Data Allergies/Adverse Reactions: Allergies Allergy/AdvReac Type Severity Reaction Status Date / Time codeine Allergy Severe Anaphylactic Verified 03/13/19 15:07 Shock Penicillins Allergy Severe Anaphylactic Verified 03/13/19 15:07 Shock propoxyphene Allergy Severe Anaphylactic Verified 03/13/19 15:07 [From Darvocet-N] Shock lactose AdvReac Diarrhea Verified 03/13/19 15:07 metoclopramide [From Reglan] AdvReac Stomach Verified 03/13/19 15:07 Ache morphine AdvReac Headache Verified 03/13/19 15:07 Home Medications: Home Meds Dicyclomine [Bentyl] 10 mg PO QID PRN 05/03/18 [History] Ondansetron HCl [Ondansetron] 8 mg PO TID PRN 05/03/18 [History] Ranitidine HCl [Ranitidine] 150 mg PO BEDTIME 05/03/18 [History] Lactobacillus Rhamnosus GG [Culturelle] 1 cap PO DAILY 09/01/18 [History] Amitriptyline [Elavil] 50 mg PO BEDTIME 11/23/18 [History] Dronabinol [Marinol] 5 mg PO BIDAC 11/23/18 [History] Gabapentin [Neurontin] 300 mg PO TID 11/23/18 [History] Hydrocortisone [Anusol-HC] 1 appful RC QID PRN 11/23/18 [History] Melatonin 6 mg PO BEDTIME 11/23/18 [History] Omeprazole Magnesium [Prilosec Otc] 40 mg PO BIDAC 11/23/18 [History] Promethazine [Phenergan] 25 mg PO TID 11/23/18 [History] Simethicone 80 mg PO QID PRN 11/23/18 [History] traZODone HCl [Trazodone HCl] 50 mg PO BEDTIME 11/23/18 [History] Amylase/Lipase/Protease [Creon DR 24,000 Unit] 1 cap PO TIDMEALS 02/22/19 [ History] Cyclobenzaprine [Flexeril] 5 mg PO TID PRN 02/22/19 [History] Potassium Chloride 20 meq PO BID 02/22/19 [History] Sertraline [Zoloft] 25 mg PO DAILY 02/22/19 [History] azaTHIOprine [Imuran] 50 mg PO DAILY 02/22/19 [History] Acetaminophen [Tylenol] 650 mg PO TIDAC tablet 03/01/19 [Rx] HYDROmorphone [Dilaudid] 2 mg PO TID tablet 03/01/19 [Rx] Lidocaine/Prilocaine [EMLA Crm] 5 gm TP DAILY PRN #1 tube 03/01/19 [Rx] Menthol/Methyl Salicylate [Icy Hot] 0 gm TOP QID PRN tube 03/01/19 [Rx] Metoclopramide HCl [Reglan] 5 mg PO TID #90 tablet 03/01/19 [Rx] predniSONE [Prednisone] 40 mg PO DAILY #0 03/01/19 [Rx] Doxylamine Succinate [Unisom Sleep Aid] 25 mg PO BEDTIME PRN 03/16/19 [History] Lidocaine 2% [Xylocaine 2% Viscous] 1 ml PO Q6HR PRN 03/16/19 [History] Zinc Oxide [Desitin Creamy Diaper Rash Crm] 1 applic TOP Q2HR PRN 03/16/19 [ History] Past Medical History HEENT History: Reports: None Cardiovascular History: Reports: None Respiratory History: Reports: None Gastrointestinal History: Reports: GERD, Inflammatory Bowel Disease Other Gastrointestinal History: crohn's disease. colitis Genitourinary History: Reports: Acute Renal Failure, Chronic Renal Insuffiency [employer] History: Reports: None Musculoskeletal History: Reports: Back Pain, Chronic Neurological History: Reports: None Psychiatric History: Reports: Anxiety Endocrine/Metabolic History: Reports: None Hematologic History: Reports: Anemia Immunologic History: Reports: Immunosuppression Oncologic (Cancer) History: Reports: None Dermatologic History: Reports: None - Infectious Disease History Infectious Disease History: Reports: C-Difficile - Past Surgical History GI Surgical History: Reports: Appendectomy, Cholecystectomy, Colonoscopy, Other (See Below) Other GI Surgeries/Procedures: partial sigmoidectomy Social & Family History - Family History Neurological: Reports: Parkinson's Oncologic: Reports: Brain, Liver - Tobacco Use Smoking Status *Q: Never Smoker - Caffeine Use Caffeine Use: Reports: None, Coffee - Alcohol Use Alcohol Use History: No Alcohol Use in Last Twelve Months: No - Recreational Drug Use Recreational Drug Use: No - Living Situation & Occupation Living situation: Reports: , with Significant Other (from [place] but staying with her daughter in [place]) 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 Denies: Fever, Chills HEENT: Reports: No Symptoms Pulmonary: Reports: No Symptoms Cardiovascular: Reports: No Symptoms Gastrointestinal: Reports: Abdominal Pain, Bloody Stool, Diarrhea, Nausea, Vomiting Genitourinary: Reports: No Symptoms Musculoskeletal: Reports: Joint Pain Skin: Reports: No Symptoms Psychiatric: Reports: No Symptoms Neurological: Reports: No Symptoms Exam - Exam Exam: See Below - Vital Signs Vital Signs: Last Vital Signs Temp 36.3 C 03/16/19 14:14 Pulse 102 H 03/16/19 14:14 Resp BP 116/72 03/16/19 14:14 Pulse Ox 98 03/16/19 14:14 Weight: 40.37 kg - Exam General: Alert, Oriented, 4 HEENT: Conjunctiva Clear, Hearing Intact, Mucosa Moist & [place], Posterior Pharynx Clear Neck: Supple, Trachea Midline. No: Lymphadenopathy, Thyromegaly Lungs: Clear to Auscultation, Normal Respiratory Effort Cardiovascular: Regular Rate, Regular Rhythm GI/Abdominal Exam: Normal Bowel Sounds, Soft, No Organomegaly, No Distention, No Mass, Tender (diffusely but most in the LUQ and RLQ; no rebound, rigidity, or guarding) Extremities: Normal Inspection, Normal Range of Motion, Non-Tender, No Pedal Edema, Normal Capillary Refill Skin: Warm, Dry, Intact - Patient Data Lab Results Last 24 hrs: Laboratory Results - last 24 hr 03/16/19 03/16/19 Range/Units 15:05 15:05 WBC 19.1 H (4.0-10.0) x10^3/uL RBC 4.10 (4.00-5.50) x10^6/uL Hgb 12.1 D (12.0-16.0) g/dL Hct 36.0 (33.0-47.0) % MCV 87.8 D (78.0-93.0) fL MCH 29.5 (26.0-32.0) pg MCHC 33.6 (32.0-36.0) g/dL RDW Coeff of Brianda 14.0 (10.0-15.0) % Plt Count 578 H D (130-400) x10^3/uL Add Manual Diff Yes Neutrophils % (Manual) 75 (50-80) % Band Neutrophils % 3 (0-6) % Lymphocytes % (Manual) 13 L (25-50) % Reactive Lymphs % 4 H (0) % Monocytes % (Manual) 5 (2-11) % Vacuolated Monocytes Rare Toxic Granulation 1+ slight H Platelet Estimate Increased H Giant Platelets Rare H Stomatocytes 1+ slight H ESR 50 H (0-21) mm/hr C-Reactive Protein < 0.2 (<=0.9) mg/dL Lipase 423 H (73-393) U/L Result Diagrams: 03/16/19 15:05 *Q Meaningful Use (ADM) - VTE *Q VTE Anticoagulation Contraindications: Med/TX Not Indicated/Need - Problem List (1) Dehydration SNOMED Code(s): 96698174 ICD Code: E86.0 - DEHYDRATION Status: Acute Current Visit: No (2) Acute renal failure (ARF) SNOMED Code(s): 20234168 ICD Code: N17.9 - ACUTE KIDNEY FAILURE, UNSPECIFIED Status: Acute Priority: Medium Current Visit: No (3) Hypokalemia SNOMED Code(s): 35090942 ICD Code: E87.6 - HYPOKALEMIA Status: Acute Priority: Medium Current Visit: No (4) Hyponatremia SNOMED Code(s): 20990140 ICD Code: E87.1 - HYPO-OSMOLALITY AND HYPONATREMIA Status: Acute Priority : Medium Current Visit: No (5) Chronic kidney disease SNOMED Code(s): 228103426 ICD Code: N18.9 - CHRONIC KIDNEY DISEASE, UNSPECIFIED Status: Chronic Current Visit: No Qualifiers: Chronic kidney disease stage: stage 3 (moderate) Qualified Code(s): N18.3 - Chronic kidney disease, stage 3 (moderate) (6) Chronic abdominal pain SNOMED Code(s): 756872024 ICD Code: R10.9 - UNSPECIFIED ABDOMINAL PAIN; G89.29 - OTHER CHRONIC PAIN Status: Chronic Priority: Medium Current Visit: No (7) Nausea & vomiting SNOMED Code(s): 34222059 ICD Code: R11.2 - NAUSEA WITH VOMITING, UNSPECIFIED Status: Chronic Priority: Medium Current Visit: No Qualifiers: Vomiting type: unspecified Vomiting Intractability: non-intractable Qualified Code(s): R11.2 - Nausea with vomiting, unspecified (8) Crohns disease SNOMED Code(s): 51732822 ICD Code: K50.90 - CROHN'S DISEASE, UNSPECIFIED, WITHOUT COMPLICATIONS Status: Chronic Current Visit: No Qualifiers: Gastrointestinal tract location: unspecified location Digestive disease complication type: unspecified complication Qualified Code(s): K50.919 - Crohn 's disease, unspecified, with unspecified complications Problem List Initiated/Reviewed/Updated: Yes Orders Last 24hrs: Active Orders 24 hr Category Date Time Status Patient Status [ADT] Routine ADT 03/16/19 14:37 Active Notify Provider Vital Signs [RC] ASDIRECTED Care 03/16/19 14:38 Active Oxygen Therapy [RC] .PRN Care 03/16/19 14:37 Active Up With Assistance [RC] 08,20 Care 03/16/19 14:37 Active VTE/DVT Education [RC] .PRN Care 03/16/19 14:37 Active Vital Signs [RC] 06,10,14,18,22,02 Care 03/16/19 14:37 Active Regular Diet [DIET] Diet 03/16/19 Dinner Active BASIC METABOLIC PANEL,BMP [CHEM] Routine Lab 03/17/19 05:11 Ordered CBC WITH AUTO DIFF [HEME] Routine Lab 03/17/19 05:11 Ordered Acetaminophen [Tylenol] Med 03/17/19 07:00 Ordered 650 mg PO TIDAC Amitriptyline [Elavil] Med 03/16/19 20:00 Ordered 50 mg PO BEDTIME Amylase/Lipase/Protease Med 03/16/19 18:00 Ordered 1 cap PO TIDMEALS Cyclobenzaprine [Flexeril] Med 03/16/19 17:10 Ordered 5 mg PO TID PRN Dicyclomine [Bentyl] Med 03/16/19 17:10 Ordered 10 mg PO QID PRN Doxylamine Succinate [Unisom Sleep Aid] Med 03/16/19 17:10 Ordered 25 mg PO BEDTIME PRN Dronabinol [Marinol] Med 03/17/19 07:00 Ordered 5 mg PO BIDAC Gabapentin [Neurontin] Med 03/16/19 20:00 Ordered 300 mg PO TID HYDROmorphone [Dilaudid] Med 03/16/19 14:39 Active 0.5 mg IVPUSH Q4H PRN Lactated Ringers [Ringers, Lactated] 1,000 ml Med 03/16/19 14:45 Active IV ASDIRECTED Lactobacillus Rhamnosus GG [Culturelle] Med 03/17/19 08:00 Ordered 1 cap PO DAILY Lidocaine/Prilocaine [EMLA Crm] Med 03/16/19 17:10 Ordered 5 gm TOP DAILY PRN Melatonin Med 03/16/19 20:00 Ordered 6 mg PO BEDTIME Menthol/Methyl Salicylate [Icy Hot Cream] Med 03/16/19 17:10 Ordered 1 gm TOP QID PRN Metoclopramide HCl Med 03/16/19 20:00 Ordered 5 mg PO TID Omeprazole Magnesium [Prilosec Otc] Med 03/17/19 07:00 Ordered 40 mg PO BIDAC Ondansetron Med 03/16/19 17:10 Ordered 8 mg PO TID PRN Potassium Chloride [Klor-Con] Med 03/16/19 20:00 Ordered 20 meq PO BID Promethazine [Phenergan] Med 03/16/19 20:00 Ordered 25 mg PO TID Ranitidine HCl [Ranitidine] Med 03/16/19 20:00 Ordered 150 mg PO BEDTIME Sertraline [Zoloft] Med 03/17/19 08:00 Ordered 25 mg PO DAILY Simethicone Med 03/16/19 17:10 Ordered 80 mg PO QID PRN Zinc Oxide Med 03/16/19 17:10 Ordered 1 applic TOP Q2HR PRN azaTHIOprine [Imuran] Med 03/17/19 08:00 Ordered 50 mg PO DAILY diphenhydrAMINE [Benadryl] Med 03/16/19 14:39 Active 25 mg IVPUSH Q6H PRN predniSONE Med 03/17/19 08:00 Ordered 40 mg PO DAILY traZODone Med 03/16/19 20:00 Ordered 50 mg PO BEDTIME Anticoagulation Contraindications VTE [AST] Per Unit Oth 03/16/19 14:37 Ordered Routine Resuscitation Status Routine Resus Stat 03/16/19 14:37 Ordered Medication Orders Acetaminophen (Tylenol) 650 mg PO TIDAC [facility] Amitriptyline HCl (Elavil) 50 mg PO BEDTIME MARY Azathioprine (Imuran) 50 mg PO DAILY MARY Diphenhydramine HCl (Benadryl) 25 mg IVPUSH Q6H PRN PRN Reason: Nausea Last Admin: 03/16/19 16:02 Dose: 25 mg Gabapentin (Neurontin) 300 mg PO TID MARY Hydromorphone HCl (Dilaudid) 0.5 mg IVPUSH Q4H PRN PRN Reason: Pain Last Admin: 03/16/19 14:55 Dose: 0.5 mg Lactated Ringer's (Ringers, Lactated) 1,000 mls @ 100 mls/hr IV ASDIRECTED MARY Last Admin: 03/16/19 14:55 Dose: 100 mls/hr Lidocaine/Prilocaine ([place]mla Crm) 5 gm TOP DAILY PRN PRN Reason: [place] Melatonin (Melatonin) 6 mg PO BEDTIME MARY Methyl Salicylate (Icy Hot Cream) 1 gm TOP QID PRN PRN Reason: Pain (mild 1-3) Non-Formulary Medication (Amylase/Lipase/Protease) 1 cap PO TIDMEALS MARY Non-Formulary Medication (Cyclobenzaprine [Flexeril]) 5 mg PO TID PRN PRN Reason: Pain Non-Formulary Medication (Dicyclomine [Bentyl]) 10 mg PO QID PRN PRN Reason: Cramping Non-Formulary Medication (Doxylamine Succinate [Unisom Sleep Aid]) 25 mg PO BEDTIME PRN PRN Reason: [place] Non-Formulary Medication (Dronabinol [Marinol]) 5 mg PO BIDAC MARY Non-Formulary Medication (Lactobacillus Rhamnosus Gg [Culturelle]) 1 cap PO DAILY MARY Non-Formulary Medication (Metoclopramide Hcl) 5 mg PO TID MARY Non-Formulary Medication (Ondansetron) 8 mg PO TID PRN PRN Reason: Nausea Non-Formulary Medication (Ranitidine Hcl [Ranitidine]) 150 mg PO BEDTIME MARY Non-Formulary Medication (Zinc Oxide) 1 applic TOP Q2HR PRN PRN Reason: Rash Omeprazole (Omeprazole) 40 mg PO BIDAC MARY Potassium Chloride (Klor-Con) 20 meq PO BID MARY Prednisone (Prednisone) 40 mg PO DAILY MARY Promethazine HCl (Phenergan) 25 mg PO TID MARY Sertraline HCl (Zoloft) 25 mg PO DAILY MARY Simethicone (Simethicone) 80 mg PO QID PRN PRN Reason: Gas Trazodone HCl (Trazodone) 50 mg PO BEDTIME MARY Assessment/Plan Comment:: 44 yo female admitted with CHARIS and dehydration secondary to increased nausea and vomiting for the past 5-6 days. #1 Dehydration #2 CHARIS #3 Hypokalemia #4 Hyponatremia - Patient with increase in creatinine to 3.1 above her baseline of 1.4-1.6. - This is likely secondary to dehydration. - Will do LR @ 100 cc/hr overnight and recheck labs in the am. - Will give her usual PO dosing of potassium and recheck labs in the am. #5 CKD - Patient will see nephrology later this month to assist with other strategies to maintain hydration as well as to help set reasonable goals for her creatinine. #6 Chronic abdominal pain #7 Nausea and vomiting #8 Crohn's disease - Continue home medications except for hydromorphone, which will be given IV overnight with plan to transition to PO tomorrow am. - Will also do IV benadryl for nausea as patient has done well with this in the past. She will be admitted to observation - if she is not improving and prepared for dismissal within 48 hours, she will be transferred to [place] for further evaluation and management given this is her 2nd hospitalization here within the past 1 month. Fluids as above. Hold off on VTE prophylaxis given report of rectal bleeding and anticipation she will be discharged or transferred within 48 hours. Code status is full - discussed on admission.
[2019-03-16] MEDS: LIPASE PO SCH (18:39)
[2019-03-16] MEDS: PROTEASE PO SCH (18:39)
[2019-03-16] MEDS: AMYLASE PO SCH (18:39)
[2019-03-16] MEDS: Metoclopramide 5 MG Tab PO SCH (18:48)
[2019-03-16] MEDS: Gabapentin 300 MG Cap PO SCH (20:05)
[2019-03-16] MEDS: traZODone 50 MG Tab PO SCH (20:05)
[2019-03-16] MEDS: Potassium Chloride 20 MEQ Packet PO SCH (20:05)
[2019-03-16] MEDS: Ondansetron 4 MG Tab.DIS PO PRN (20:06)
[2019-03-16] MEDS: Promethazine 25 MG Tab PO SCH (20:06)
[2019-03-16] MEDS: Famotidine 20 MG Tab PO SCH (20:06)
[2019-03-16] MEDS: Amitriptyline 25 MG Tab PO SCH (20:06)
[2019-03-16] MEDS: Melatonin 3 MG Tab PO SCH (20:07)
[2019-03-17] MEDS: Lactated Ringers 1,000 ML IV SCH ×3 (01:08→20:56)
[2019-03-17] MEDS: HYDROmorphone 1 MG/ML Syringe IVPUSH PRN ×2 (02:05→06:53)
[2019-03-17] MEDS: diphenhydrAMINE 50 MG/ML SDV IVPUSH PRN ×4 (02:07→22:58)
[2019-03-17] MEDS: Metoclopramide 5 MG Tab PO SCH ×3 (06:45→16:04)
[2019-03-17] MEDS: Acetaminophen 325 MG Tab PO SCH ×3 (06:45→16:04)
[2019-03-17] MEDS: Omeprazole 20 MG Cap.CR PO SCH ×2 (06:45→16:06)
[2019-03-17] MEDS: DRONABINOL 5 MG PO SCH ×3 (06:46→23:09)
[2019-03-17 07:20] LABS: ANION GAP 13.5 mmol/L (10-20)
[2019-03-17] MEDS ORDERED: Potassium Chloride Riders 20 MEQ in Premix Bag 1 BAG IV ONE (08:10)
[2019-03-17] MEDS: Potassium Chloride 20 MEQ Packet PO SCH ×2 (08:43→20:43)
[2019-03-17] MEDS: Promethazine 25 MG Tab PO SCH ×3 (08:43→20:43)
[2019-03-17] MEDS: Gabapentin 300 MG Cap PO SCH ×3 (08:43→20:43)
[2019-03-17] MEDS: Lactobacillus Rhamnosus GG (Probiotic) Cap PO SCH (08:43)
[2019-03-17] MEDS: predniSONE 20 MG Tab PO SCH (08:43)
[2019-03-17] MEDS: Sertraline 25 MG Tab PO SCH (08:43)
[2019-03-17] MEDS: PROTEASE PO SCH ×3 (08:44→18:28)
[2019-03-17] MEDS: LIPASE PO SCH ×3 (08:44→18:28)
[2019-03-17] MEDS: AMYLASE PO SCH ×3 (08:44→18:28)
--- NOTE | 2019-03-17 10:03 | PCM.PN ---
- General Info Date of Service: 03/17/19 Subjective Update: 44 yo female hospital day #2 for dehydration and CHARIS due to increased nausea and vomiting above her baseline. She did sleep better overnight than she has been. She states her pain was adequately controlled. She has had 7 BM's since admit and the blood content continues to lessen. She is still having significant nausea and has not been able to eat or drink much. She continues to vomit frequently. She is not sure that anything has changed as far as her strength level. - Review of Systems General: Reports: No Symptoms HEENT: Reports: No Symptoms Pulmonary: Reports: No Symptoms Cardiovascular: Reports: No Symptoms Gastrointestinal: Reports: Abdominal Pain, Decreased Appetite, Nausea, Vomiting Genitourinary: Reports: No Symptoms Musculoskeletal: Reports: No Symptoms Skin: Reports: No Symptoms Neurological: Reports: No Symptoms - Patient Data Vitals - Most Recent: Last Vital Signs Temp 36.4 C 03/17/19 06:00 Pulse 73 03/17/19 06:00 Resp 16 03/16/19 18:00 BP 107/60 03/17/19 06:00 Pulse Ox 99 03/17/19 06:00 Weight - Most Recent: 40.37 kg I&O - Last 24 Hours: Intake & Output 03/16/19 03/17/19 03/17/19 22:59 06:59 14:59 Intake Total 1565 180 Output Total 100 300 500 Balance -100 1265 -320 Lab Results Last 24 Hours: Laboratory Results - last 24 hr 03/16/19 03/16/19 03/17/19 Range/Units 15:05 15:05 06:09 WBC 19.1 H 9.0 (4.0-10.0) x10^3/uL RBC 4.10 3.45 L (4.00-5.50) x10^6/uL Hgb 12.1 D 10.3 L D (12.0-16.0) g/dL Hct 36.0 31.5 L (33.0-47.0) % MCV 87.8 D 91.3 D (78.0-93.0) fL MCH 29.5 29.9 (26.0-32.0) pg MCHC 33.6 32.7 (32.0-36.0) g/dL RDW Coeff of Brianda 14.0 14.1 (10.0-15.0) % Plt Count 578 H D 437 H D (130-400) x10^3/uL Neut % (Auto) 68.1 (50.0-80.0) % Lymph % (Auto) 21.1 L (25.0-50.0) % [place] % (Auto) 7.7 (2.0-11.0) % Eos % (Auto) 2.4 (0.0-4.0) % Baso % (Auto) 0.7 (0.2-1.2) % Add Manual Diff Yes Neutrophils % (Manual) 75 (50-80) % Band Neutrophils % 3 (0-6) % Lymphocytes % (Manual) 13 L (25-50) % Reactive Lymphs % 4 H (0) % Monocytes % (Manual) 5 (2-11) % Vacuolated Monocytes Rare Toxic Granulation 1+ slight H Platelet Estimate Increased H Giant Platelets Rare H Stomatocytes 1+ slight H ESR 50 H (0-21) mm/hr Sodium (136-145) mmol/L Potassium (3.5-5.1) mmol/L Chloride (98-107) mmol/L Carbon Dioxide (21-32) mmol/L Anion Gap (10-20) mmol/L BUN (7-18) mg/dL Creatinine (0.55-1.02) mg/dL Est Cr Clr Drug Dosing mL/min Estimated GFR (MDRD) Glucose (74-106) mg/dL Calcium (8.5-10.1) mg/dL C-Reactive Protein < 0.2 (<=0.9) mg/dL Lipase 423 H (73-393) U/L 03/17/19 Range/Units 06:09 WBC (4.0-10.0) x10^3/uL RBC (4.00-5.50) x10^6/uL Hgb (12.0-16.0) g/dL Hct (33.0-47.0) % MCV (78.0-93.0) fL MCH (26.0-32.0) pg MCHC (32.0-36.0) g/dL RDW Coeff of Brianda (10.0-15.0) % Plt Count (130-400) x10^3/uL Neut % (Auto) (50.0-80.0) % Lymph % (Auto) (25.0-50.0) % [place] % (Auto) (2.0-11.0) % Eos % (Auto) (0.0-4.0) % Baso % (Auto) (0.2-1.2) % Add Manual Diff Neutrophils % (Manual) (50-80) % Band Neutrophils % (0-6) % Lymphocytes % (Manual) (25-50) % Reactive Lymphs % (0) % Monocytes % (Manual) (2-11) % Vacuolated Monocytes Toxic Granulation Platelet Estimate Giant Platelets Stomatocytes ESR (0-21) mm/hr Sodium 137 (136-145) mmol/L Potassium 2.5 L* (3.5-5.1) mmol/L Chloride 99 (98-107) mmol/L Carbon Dioxide 27 (21-32) mmol/L Anion Gap 13.5 (10-20) mmol/L BUN 32 H (7-18) mg/dL Creatinine 2.6 H (0.55-1.02) mg/dL Est Cr Clr Drug Dosing 17.23 mL/min Estimated GFR (MDRD) 20 Glucose 81 (74-106) mg/dL Calcium 8.3 L (8.5-10.1) mg/dL C-Reactive Protein (<=0.9) mg/dL Lipase (73-393) U/L Med Orders - Current: Current Medications Acetaminophen (Tylenol) 650 mg PO TIDAC [facility] Last Admin: 03/17/19 06:45 Dose: 650 mg Amitriptyline HCl (Elavil) 50 mg PO BEDTIME [facility] Last Admin: 03/16/19 20:06 Dose: 50 mg Azathioprine (Imuran) 50 mg PO DAILY [facility] Last Admin: 03/17/19 08:43 Dose: 50 mg Calamine/Phenol (Calmoseptine) 0 gm TOP Q2HR PRN PRN Reason: Rash Cyclobenzaprine HCl (Flexeril) 5 mg PO TID PRN PRN Reason: Pain Dicyclomine HCl (Bentyl) 10 mg PO QID PRN PRN Reason: Cramping Diphenhydramine HCl (Benadryl) 25 mg IVPUSH Q6H PRN PRN Reason: Nausea Last Admin: 03/17/19 09:01 Dose: 25 mg Famotidine (Pepcid) 20 mg PO BEDTIME [facility] Last Admin: 03/16/19 20:06 Dose: 20 mg Gabapentin (Neurontin) 300 mg PO TID [facility] Last Admin: 03/17/19 08:43 Dose: 300 mg Hydromorphone HCl (Dilaudid) 2 mg PO Q4H PRN PRN Reason: Pain Lactated Ringer's (Ringers, Lactated) 1,000 mls @ 100 mls/hr IV ASDIRECTED [facility] Last Admin: 03/17/19 01:08 Dose: 100 mls/hr Potassium Chloride 20 meq/ (Premix) 50 mls @ 25 mls/hr IV ONETIME ONE Stop: 03/17/19 10:09 Last Admin: 03/17/19 09:00 Dose: 25 mls/hr Lactobacillus Rhamnosus (Culturelle) 1 cap PO DAILY [facility] Last Admin: 03/17/19 08:43 Dose: 1 cap Lidocaine/Prilocaine (Emla Crm) 5 gm TOP DAILY PRN PRN Reason: Port Access Melatonin (Melatonin) 6 mg PO BEDTIME [facility] Last Admin: 03/16/19 20:07 Dose: 6 mg Methyl Salicylate (Icy Hot Cream) 1 gm TOP QID PRN PRN Reason: Pain (mild 1-3) Metoclopramide HCl (Reglan) 5 mg PO TIDAC [facility] Last Admin: 03/17/19 06:45 Dose: 5 mg Amylase/Lipase/Protease (Own Supply ) 1 cap PO TIDMEALS [facility] Last Admin: 03/17/19 08:44 Dose: Not Given Doxylamine Succinate [Unisom Sleep Aid] 25mg 0 mg PO BEDTIME PRN PRN Reason: naseau Dronabinol [Marinol] (5mg (Own Supply)) 0 mg PO BIDAC [facility] Last Admin: 03/17/19 06:46 Dose: Not Given Omeprazole (Omeprazole) 40 mg PO BIDAC [facility] Last Admin: 03/17/19 06:45 Dose: 40 mg Ondansetron HCl (Zofran Odt) 8 mg PO TID PRN PRN Reason: Nausea Last Admin: 03/16/19 20:06 Dose: 8 mg Potassium Chloride (Klor-Con) 20 meq PO BID [facility] Last Admin: 03/17/19 08:43 Dose: 20 meq Prednisone (Prednisone) 40 mg PO DAILY [facility] Last Admin: 03/17/19 08:43 Dose: 40 mg Promethazine HCl (Phenergan) 25 mg PO TID [facility] Last Admin: 03/17/19 08:43 Dose: 25 mg Sertraline HCl (Zoloft) 25 mg PO DAILY [facility] Last Admin: 03/17/19 08:43 Dose: 25 mg Simethicone (Simethicone) 80 mg PO QID PRN PRN Reason: Gas Trazodone HCl (Trazodone) 50 mg PO BEDTIME [facility] Last Admin: 03/16/19 20:05 Dose: 50 mg Discontinued Medications Hydromorphone HCl (Dilaudid) 0.5 mg IVPUSH Q4H PRN PRN Reason: Pain Last Admin: 03/17/19 06:53 Dose: 0.5 mg - Exam General: Alert, Oriented HEENT: Pupils Equal, Pupils Reactive, Mucous Membr. Moist/[place] Neck: Supple, Trachea Midline, No Thyromegaly. No: Lymphadenopathy Lungs: Clear to Auscultation, Normal Respiratory Effort Cardiovascular: Regular Rate, Regular Rhythm GI/Abdominal Exam: Normal Bowel Sounds, Soft, No Organomegaly, No Distention, No Mass, Tender (diffuse tenderness without rebound, rigidity, or guarding) Extremities: Normal Inspection, Normal Range of Motion, Non-Tender, No Pedal Edema, Normal Capillary Refill Peripheral Pulses: 2+: Radial (L), Radial (R) Skin: Warm, Dry, Intact - Problem List & Annotations (1) Dehydration SNOMED Code(s): 84400610 Code(s): E86.0 - DEHYDRATION Status: Acute Current Visit: No (2) Acute renal failure (ARF) SNOMED Code(s): 48918135 Code(s): N17.9 - ACUTE KIDNEY FAILURE, UNSPECIFIED Status: Acute Priority : Medium Current Visit: No (3) Hypokalemia SNOMED Code(s): 37748341 Code(s): E87.6 - HYPOKALEMIA Status: Acute Priority: Medium Current Visit: No (4) Hyponatremia SNOMED Code(s): 33633540 Code(s): E87.1 - HYPO-OSMOLALITY AND HYPONATREMIA Status: Acute Priority : Medium Current Visit: No (5) Chronic kidney disease SNOMED Code(s): 497391182 Code(s): N18.9 - CHRONIC KIDNEY DISEASE, UNSPECIFIED Status: Chronic Current Visit: No Qualifiers: Chronic kidney disease stage: stage 3 (moderate) Qualified Code(s): N18.3 - Chronic kidney disease, stage 3 (moderate) (6) Chronic abdominal pain SNOMED Code(s): 034409914 Code(s): R10.9 - UNSPECIFIED ABDOMINAL PAIN; G89.29 - OTHER CHRONIC PAIN Status: Chronic Priority: Medium Current Visit: No (7) Nausea & vomiting SNOMED Code(s): 69752733 Code(s): R11.2 - NAUSEA WITH VOMITING, UNSPECIFIED Status: Chronic Priority: Medium Current Visit: No Qualifiers: Vomiting type: unspecified Vomiting Intractability: non-intractable Qualified Code(s): R11.2 - Nausea with vomiting, unspecified (8) Crohns disease SNOMED Code(s): 56139997 Code(s): K50.90 - CROHN'S DISEASE, UNSPECIFIED, WITHOUT COMPLICATIONS Status: Chronic Current Visit: No Qualifiers: Gastrointestinal tract location: unspecified location Digestive disease complication type: unspecified complication Qualified Code(s): K50.919 - Crohn 's disease, unspecified, with unspecified complications - Problem List Review Problem List Initiated/Reviewed/Updated: Yes - My Orders Last 24 Hours: My Active Orders 03/16/19 14:37 Patient Status [ADT] Routine Oxygen Therapy [RC] .PRN Up With Assistance [RC] 08,20 VTE/DVT Education [RC] .PRN Vital Signs [RC] 06,10,14,18,22,02 Anticoagulation Contraindications VTE [AST] Per Unit Routine Resuscitation Status Routine 03/16/19 14:38 Notify Provider Vital Signs [RC] ASDIRECTED 03/16/19 14:39 diphenhydrAMINE [Benadryl] 25 mg IVPUSH Q6H PRN 03/16/19 14:45 Lactated Ringers [Ringers, Lactated] 1,000 ml IV ASDIRECTED 03/16/19 17:10 Cyclobenzaprine [Flexeril] 5 mg PO TID PRN Dicyclomine [Bentyl] 10 mg PO QID PRN Doxylamine Succinate [Unisom Sleep Aid] 0 mg PO BEDTIME PRN Lidocaine/Prilocaine [EMLA Crm] 5 gm TOP DAILY PRN Menthol/Methyl Salicylate [Icy Hot Cream] 1 gm TOP QID PRN Menthol/Zinc Oxide [Calmoseptine] 0 gm TOP Q2HR PRN Ondansetron [Zofran ODT] 8 mg PO TID PRN Simethicone 80 mg PO QID PRN 03/16/19 17:30 Metoclopramide [Reglan] 5 mg PO TIDAC 03/16/19 18:00 Amylase/Lipase/Protease 1 cap PO TIDMEALS 03/16/19 20:00 Amitriptyline [Elavil] 50 mg PO BEDTIME Famotidine [Pepcid] 20 mg PO BEDTIME Gabapentin [Neurontin] 300 mg PO TID Melatonin 6 mg PO BEDTIME Potassium Chloride [Klor-Con] 20 meq PO BID Promethazine [Phenergan] 25 mg PO TID traZODone 50 mg PO BEDTIME 03/16/19 Dinner Regular Diet [DIET] 03/17/19 07:00 Acetaminophen [Tylenol] 650 mg PO TIDAC Dronabinol [Marinol] 0 mg PO BIDAC Omeprazole 40 mg PO BIDAC 03/17/19 08:00 Lactobacillus Rhamnosus GG [Culturelle] 1 cap PO DAILY Sertraline [Zoloft] 25 mg PO DAILY azaTHIOprine [Imuran] 50 mg PO DAILY predniSONE 40 mg PO DAILY 03/17/19 08:10 Potassium Chloride Riders [KCL 20 MEQ in Water 50 ML] 20 meq Premix Bag 1 bag IV ONETIME 03/17/19 08:24 HYDROmorphone [Dilaudid] 2 mg PO Q4H PRN - Assessment Assessment:: 44 yo female hospital day #2 with CHARIS and dehydration secondary to ongoing abdominal pain, nausea, and vomiting. Pain is better today but nausea and vomiting persist. Labs improved. - Plan Plan:: #1 Dehydration #2 CHARIS #3 Hypokalemia #4 Hyponatremia - Creatinine improved to 2.6 from 3.1 yesterday. Baseline is 1.4-1.6. - Continue LR @ 100 cc/hr until recheck labs in the am. - K lower today at 2.5. Will do 20 mEq IV and continue her BID PO supplementation. - Recheck labs in the am. #5 CKD - Patient will see nephrology later this month to assist with other strategies to maintain hydration as well as to help set reasonable goals for her creatinine. #6 Chronic abdominal pain #7 Nausea and vomiting #8 Crohn's disease - Continue home medications. Will d/c IV hydromorphone and resume home PO hydromorphone. - Continue IV benadryl PRN for nausea as patient has done well with this in the past and she continues to struggle with significant nausea. She will remain on observation status - if she is not improving and prepared for dismissal tomorrow, she will be transferred to [place] for further evaluation and management given this is her 2nd hospitalization here within the past 1 month. She has been in agreement with this plan. Fluids as above. Hold off on VTE prophylaxis given report of rectal bleeding and anticipation she will be discharged or transferred within 48 hours. Code status is full - discussed on admission. Dr. Fairbanks to follow over the weekend.
[2019-03-17] MEDS: HYDROmorphone 2 MG Tab PO PRN ×2 (10:12→20:53)
[2019-03-17] MEDS ORDERED: HYDROmorphone 1 MG/ML Syringe IVPUSH ONE (12:03)
[2019-03-17] MEDS: Famotidine 20 MG Tab PO SCH (20:43)
[2019-03-17] MEDS: traZODone 50 MG Tab PO SCH (20:43)
[2019-03-17] MEDS: Amitriptyline 25 MG Tab PO SCH (20:43)
[2019-03-17] MEDS: Melatonin 3 MG Tab PO SCH (20:43)
[2019-03-17] MEDS: Ondansetron 4 MG Tab.DIS PO PRN (20:52)
[2019-03-18] MEDS: HYDROmorphone 1 MG/ML Syringe IVPUSH PRN ×3 (01:02→13:36)
[2019-03-18] MEDS ORDERED: Sodium Chloride 0.9% 10 ML Syringe IV PRN (01:03)
[2019-03-18] MEDS: Ondansetron 4 MG Tab.DIS PO PRN ×2 (05:57→10:24)
[2019-03-18] MEDS: Acetaminophen 325 MG Tab PO SCH ×2 (06:00→11:12)
[2019-03-18] MEDS: Omeprazole 20 MG Cap.CR PO SCH (06:00)
[2019-03-18] MEDS: Metoclopramide 5 MG Tab PO SCH ×2 (06:01→11:12)
[2019-03-18] MEDS: DRONABINOL 5 MG PO SCH (06:01)
[2019-03-18] MEDS: diphenhydrAMINE 50 MG/ML SDV IVPUSH PRN ×2 (06:19→13:37)
[2019-03-18] MEDS: Lactated Ringers 1,000 ML IV SCH (06:41)
[2019-03-18 08:11] LABS: ANION GAP 11.7 mmol/L (10-20)
[2019-03-18] MEDS: Potassium Chloride 20 MEQ Packet PO SCH (08:47)
[2019-03-18] MEDS: Lactobacillus Rhamnosus GG (Probiotic) Cap PO SCH (08:47)
[2019-03-18] MEDS: predniSONE 20 MG Tab PO SCH (08:47)
[2019-03-18] MEDS: Gabapentin 300 MG Cap PO SCH ×2 (08:47→12:41)
[2019-03-18] MEDS: Promethazine 25 MG Tab PO SCH ×2 (08:48→12:41)
[2019-03-18] MEDS: AMYLASE PO SCH ×2 (08:48→12:43)
[2019-03-18] MEDS: PROTEASE PO SCH ×2 (08:48→12:43)
[2019-03-18] MEDS: Sertraline 25 MG Tab PO SCH (08:48)
[2019-03-18] MEDS: LIPASE PO SCH ×2 (08:48→12:43)
[2019-03-18] MEDS: Potassium Chloride Riders 20 MEQ in Premix Bag 1 BAG IV SCH ×2 (08:49→11:08)
--- NOTE | 2019-03-18 12:17 | PCM.PN ---
- General Info Date of Service: 03/18/19 Admission Dx/Problem (Free Text): History: She had persistent vomiting yesterday afternoon and evening, so she was switched from oral to IV Dilaudid and has had 2 doses of that, one last night and one this morning. Her Hb has fallen from 12.1 down to 7.4, probably mostly dilutional since her creatinine has gone from 3.1 down to 1.5 and her WBC also decreased dramatically. She says she had a lot of rectal bleeding earlier in the week but it was getting better by the time of her admission, continues to improve. She has had 8-10 loose stools per day, but none so far today. She got some KCl supplement yesterday because her K+ was 2.5, but so far it has only come up to 2.7, so in consultation with Pharmacist she is being started on a hypokalemia protocol. On admission she and her physician, [facility] that she would go in as Observation and if not better by today and not able to go home, then we would work on T/F to [place] and she had agreed with that. Exam: VS normal She is calm and alert and in mild distress Abdomen not distended, soft but generally tender, she C/O pain in RLQ and LUQ Impression: Crohns disease with persistent bloody stools, abdominal pain, dehydration Plan: Discussed with GI and hospitalist at [facility], they reviewed her [facility] chart as we spoke, and they will accept in T/F but wanted to make sure that she does not have C. diff colitis first, and I could not find evidence of her having that, so it is pending. - Patient Data Vitals - Most Recent: Last Vital Signs Temp 36.7 C 03/18/19 10:00 Pulse 100 03/18/19 10:00 Resp 16 03/18/19 10:00 BP 91/56 L 03/18/19 10:00 Pulse Ox 98 03/18/19 10:00 Weight - Most Recent: 40.37 kg I&O - Last 24 Hours: Intake & Output 03/17/19 03/18/19 03/18/19 22:59 06:59 14:59 Intake Total 2253 1388 Output Total 600 350 Balance 1653 1038 Lab Results Last 24 Hours: Laboratory Results - last 24 hr 03/18/19 03/18/1903/18/19 Range/Units 07:40 07:40 07:40 WBC 7.8 (4.0-10.0) x10^3/uL RBC 2.49 L (4.00-5.50) x10^6/uL Hgb 7.4 L D (12.0-16.0) g/dL Hct 23.8 L (33.0-47.0) % MCV 95.6 H D (78.0-93.0) fL MCH 29.7 (26.0-32.0) pg MCHC 31.1 L (32.0-36.0) g/dL RDW Coeff of Brianda 14.3 (10.0-15.0) % Plt Count 355 D (130-400) x10^3/uL Neut % (Auto) 66.1 (50.0-80.0) % Lymph % (Auto) 22.4 L (25.0-50.0) % [place] % (Auto) 9.9 (2.0-11.0) % Eos % (Auto) 1.2 (0.0-4.0) % Baso % (Auto) 0.4 (0.2-1.2) % Sodium 141 (136-145) mmol/L Potassium 2.7 L* (3.5-5.1) mmol/L Chloride 108 H (98-107) mmol/L Carbon Dioxide 24 (21-32) mmol/L Anion Gap 11.7 (10-20) mmol/L BUN 20 H (7-18) mg/dL Creatinine 1.5 H (0.55-1.02) mg/dL Est Cr Clr Drug Dosing 29.87 mL/min Estimated GFR (MDRD) 37 Glucose 86 (74-106) mg/dL Calcium 7.3 L (8.5-10.1) mg/dL Magnesium 1.9 (1.8-2.4) mg/dL Med Orders - Current: Current Medications Acetaminophen (Tylenol) 650 mg PO TIDAC [facility] Last Admin: 03/18/19 11:12 Dose: 650 mg Amitriptyline HCl (Elavil) 50 mg PO BEDTIME [facility] Last Admin: 03/17/19 20:43 Dose: 50 mg Azathioprine (Imuran) 50 mg PO DAILY [facility] Last Admin: 03/18/19 08:48 Dose: 50 mg Calamine/Phenol (Calmoseptine) 0 gm TOP Q2HR PRN PRN Reason: Rash Cyclobenzaprine HCl (Flexeril) 5 mg PO TID PRN PRN Reason: Pain Dicyclomine HCl (Bentyl) 10 mg PO QID PRN PRN Reason: Cramping Diphenhydramine HCl (Benadryl) 25 mg IVPUSH Q6H PRN PRN Reason: Nausea Last Admin: 03/18/19 06:19 Dose: 25 mg Famotidine (Pepcid) 20 mg PO BEDTIME [facility] Last Admin: 03/17/19 20:43 Dose: 20 mg Gabapentin (Neurontin) 300 mg PO TID [facility] Last Admin: 03/18/19 08:47 Dose: 300 mg Hydromorphone HCl (Dilaudid) 2 mg PO Q4H PRN PRN Reason: Pain Last Admin: 03/17/19 20:53 Dose: 2 mg Hydromorphone HCl (Dilaudid) 0.5 mg IVPUSH Q4H PRN PRN Reason: Pain Last Admin: 03/18/19 06:18 Dose: 0.5 mg Lactated Ringer's (Ringers, Lactated) 1,000 mls @ 100 mls/hr IV ASDIRECTED [facility] Last Admin: 03/18/19 06:41 Dose: 100 mls/hr Potassium Chloride 20 meq/ (Premix) 50 mls @ 25 mls/hr IV Q2H [facility] Stop: 03/18/19 12:59 Last Admin: 03/18/19 11:08 Dose: 25 mls/hr Lactobacillus Rhamnosus (Culturelle) 1 cap PO DAILY [facility] Last Admin: 03/18/19 08:47 Dose: 1 cap Lidocaine/Prilocaine (Emla Crm) 5 gm TOP DAILY PRN PRN Reason: Port Access Melatonin (Melatonin) 6 mg PO BEDTIME [facility] Last Admin: 03/17/19 20:43 Dose: 6 mg Methyl Salicylate (Icy Hot Cream) 1 gm TOP QID PRN PRN Reason: Pain (mild 1-3) Metoclopramide HCl (Reglan) 5 mg PO TIDAC [facility] Last Admin: 03/18/19 11:12 Dose: 5 mg Amylase/Lipase/Protease (Own Supply ) 1 cap PO TIDMEALS [facility] Last Admin: 03/18/19 08:48 Dose: Not Given Doxylamine Succinate [Unisom Sleep Aid] 25mg 0 mg PO BEDTIME PRN PRN Reason: naseau Dronabinol [Marinol] (5mg (Own Supply)) 0 mg PO BIDAC [facility] Last Admin: 03/18/19 06:01 Dose: 5 mg Omeprazole (Omeprazole) 40 mg PO BIDAC [facility] Last Admin: 03/18/19 06:00 Dose: 40 mg Ondansetron HCl (Zofran Odt) 8 mg PO TID PRN PRN Reason: Nausea Last Admin: 03/18/19 10:24 Dose: 8 mg Potassium Chloride (Klor-Con) 20 meq PO BID [facility] Last Admin: 03/18/19 08:47 Dose: 20 meq Prednisone (Prednisone) 40 mg PO DAILY [facility] Last Admin: 03/18/19 08:47 Dose: 40 mg Promethazine HCl (Phenergan) 25 mg PO TID [facility] Last Admin: 03/18/19 08:48 Dose: 25 mg Sertraline HCl (Zoloft) 25 mg PO DAILY [facility] Last Admin: 03/18/19 08:48 Dose: 25 mg Simethicone (Simethicone) 80 mg PO QID PRN PRN Reason: Gas Sodium Chloride (Saline Flush) 10 ml IV ASDIRECTED PRN PRN Reason: Keep Vein Open Trazodone HCl (Trazodone) 50 mg PO BEDTIME [facility] Last Admin: 03/17/19 20:43 Dose: 50 mg Discontinued Medications Hydromorphone HCl (Dilaudid) 0.5 mg IVPUSH Q4H PRN PRN Reason: Pain Last Admin: 03/17/19 06:53 Dose: 0.5 mg Hydromorphone HCl (Dilaudid) 0.25 mg IVPUSH ONETIME ONE Stop: 03/17/19 12:04 Last Admin: 03/17/19 13:40 Dose: 0.25 mg Potassium Chloride 20 meq/ (Premix) 50 mls @ 25 mls/hr IV ONETIME ONE Stop: 03/17/19 10:09 Last Admin: 03/17/19 09:00 Dose: 25 mls/hr - Problem List Review Problem List Initiated/Reviewed/Updated: Yes - My Orders Last 24 Hours: My Active Orders 03/18/19 00:37 HYDROmorphone [Dilaudid] 0.5 mg IVPUSH Q4H PRN 03/18/19 09:00 Potassium Chloride Riders [KCL 20 MEQ in Water 50 ML] 20 meq Premix Bag 1 bag IV Q2H
--- NOTE | 2019-03-18 15:00 | PCM.DCSUM1 ---
Discharge Summary - Hospital Course Free Text/Narrative:: Discharge Diagnoses: -Crohns disease, exacerbation, with persistent vomiting -Severe hypokalemia -Recurrent C. diff colitis -Dehydration with acute azotemia -Chronic opioid use Reason for Admission: Abdominal pain, loose bloody stools, dehydration, creatinine 3.1 Initial findings: -WBC 19,100, hemoglobin 12.1, platelets 578K -Na+ 137, K+ 2.5, creatinine 3.1 by report, 2.6 after admit -CRP undetectable -Lipase 423 -In distress and abdominal pain, has diffuse abdominal tenderness Treatment and Course in hospital: Admitted to Observation with understanding that she should be T/F to [facility] if not improved in 2 days. IV fluid, started oral Dilaudid but had to switch to IV because of persistent vomiting, had 2 IV doses. Continued to have loose bloody stools but less frequent and less bloody than they had been earlier at home. When K+ came back on 03/18 still at 2.7, she was put on an intensive potassium resuscitation dose. On 03/18 her HPV has dropped from 12.1 down to 7.4, WBC from 19.1 down to 7.8, creatinine from 2.6 down to 1.5, Ca++ remains low at 7.3. Pain about the same but had no loose stools today until she was urged to pass one for another C. diff test. On discussion with GI and hospitalist at [facility] there was question about whether this might be just C. diff colitis. Indeed when I got to her [facility] chart I see that she had been on prolonged vancomycin from [facility], had a negative test 05/03/18, and positive on 07/26, 08/19, 09/07 and received vancomycin from 07/29 until 09/27/18. Has Hx of getting a partial course of vidaxomicin. She then had a negative test 09/16, positive again on 10/05, 10/30 , 11/08, 01/26 and she took vancomycin again, tapered off on 02/02, negative test on 02/02. Another test was taken today in hospital but cant be processed here, will be sent to [facility] on 03/20., This is discussed on her D/C summary from [facility] on her hospitalization 01/25 until 01/28/19. Condition on Discharge: -No cough or respiratory distress -VS stable, afebrile -BP low-normal -Abdomen diffusely tender, no rigidity, guarding, or rebound tenderness -Alert, affect subdued Discharge Plan: -[facility] agrees to accept on Internal Medicine service with GI and Psych consult -T/F to [facility] by ALS ambulance with IVs running Diagnosis: Stroke: No Modified [place] Scale: No Signif.Disability Despite Sympt.Able to Carry Out Usual Act./Duties Modified [place] Scale Score: 1 - Discharge Data Discharge Date: 03/18/19 Discharge Disposition: DC/Tfer to Acute Hospital 02 Condition: Good - Discharge Plan *PRESCRIPTION DRUG MONITORING PROGRAM REVIEWED*: Not Applicable *COPY OF PRESCRIPTION DRUG MONITORING REPORT IN PATIENT CHELSEY: Not Applicable Home Medications: Home Meds Dicyclomine [Bentyl] 10 mg PO QID PRN 05/03/18 [History] Ondansetron HCl [Ondansetron] 8 mg PO TID PRN 05/03/18 [History] Ranitidine HCl [Ranitidine] 150 mg PO BEDTIME 05/03/18 [History] Lactobacillus Rhamnosus GG [Culturelle] 1 cap PO DAILY 09/01/18 [History] Amitriptyline [Elavil] 50 mg PO BEDTIME 11/23/18 [History] Dronabinol [Marinol] 5 mg PO BIDAC 11/23/18 [History] Gabapentin [Neurontin] 300 mg PO TID 11/23/18 [History] Melatonin 6 mg PO BEDTIME 11/23/18 [History] Omeprazole Magnesium [Prilosec Otc] 40 mg PO BIDAC 11/23/18 [History] Promethazine [Phenergan] 25 mg PO TID 11/23/18 [History] Simethicone 80 mg PO QID PRN 11/23/18 [History] traZODone HCl [Trazodone HCl] 50 mg PO BEDTIME 11/23/18 [History] Amylase/Lipase/Protease [Johnna GALLAGHER 24,000 Unit] 1 cap PO TIDMEALS 02/22/19 [ History] Cyclobenzaprine [Flexeril] 5 mg PO TID PRN 02/22/19 [History] Potassium Chloride 20 meq PO BID 02/22/19 [History] Sertraline [Zoloft] 25 mg PO DAILY 02/22/19 [History] azaTHIOprine [Imuran] 50 mg PO DAILY 02/22/19 [History] Acetaminophen [Tylenol] 650 mg PO TIDAC tablet 03/01/19 [Rx] Menthol/Methyl Salicylate [Icy Hot] 0 gm TOP QID PRN tube 03/01/19 [Rx] Metoclopramide HCl [Reglan] 5 mg PO TID #90 tablet 03/01/19 [Rx] predniSONE [Prednisone] 40 mg PO DAILY #0 03/01/19 [Rx] Doxylamine Succinate [Unisom Sleep Aid] 25 mg PO BEDTIME PRN 03/16/19 [History] Zinc Oxide [Desitin Creamy Diaper Rash Crm] 1 applic TOP Q2HR PRN 03/16/19 [ History] HYDROmorphone [Dilaudid] 0.5 mg IVPUSH Q4H PRN syringe 03/18/19 [Rx] Lactated Ringers [Ringers, Lactated] 100 ml IV ASDIRECTED bag 03/18/19 [Rx] Sodium Chloride 0.9% [Saline Flush] 10 ml IV ASDIRECTED PRN syringe 03/18/19 [ Rx] diphenhydrAMINE [Benadryl] 25 mg IVPUSH Q6H PRN sdv 03/18/19 [Rx] - Discharge Summary/Plan Comment DC Time >30 min.: No - Patient Data Vitals - Most Recent: Last Vital Signs Temp 36.6 C 03/18/19 14:00 Pulse 94 03/18/19 14:00 Resp 16 03/18/19 14:00 BP 102/60 03/18/19 14:00 Pulse Ox 99 03/18/19 14:00 Weight - Most Recent: 40.37 kg I&O - Last 24 hours: Intake & Output 03/17/19 03/18/19 03/18/19 22:59 06:59 14:59 Intake Total 2253 1388 360 Output Total 073 919 5573 Balance 1653 1038 -640 Lab Results - Last 24 hrs: Laboratory Results - last 24 hr 03/18/19 03/18/19 03/18/19 Range/Units 07:40 07:40 07:40 WBC 7.8 (4.0-10.0) x10^3/uL RBC 2.49 L (4.00-5.50) x10^6/uL Hgb 7.4 L D (12.0-16.0) g/dL Hct 23.8 L (33.0-47.0) % MCV 95.6 H D (78.0-93.0) fL MCH 29.7 (26.0-32.0) pg MCHC 31.1 L (32.0-36.0) g/dL RDW Coeff of Brianda 14.3 (10.0-15.0) % Plt Count 355 D (130-400) x10^3/uL Neut % (Auto) 66.1 (50.0-80.0) % Lymph % (Auto) 22.4 L (25.0-50.0) % [place] % (Auto) 9.9 (2.0-11.0) % Eos % (Auto) 1.2 (0.0-4.0) % Baso % (Auto) 0.4 (0.2-1.2) % Sodium 141 (136-145) mmol/L Potassium 2.7 L* (3.5-5.1) mmol/L Chloride 108 H (98-107) mmol/L Carbon Dioxide 24 (21-32) mmol/L Anion Gap 11.7 (10-20) mmol/L BUN 20 H (7-18) mg/dL Creatinine 1.5 H (0.55-1.02) mg/dL Est Cr Clr Drug Dosing 29.87 mL/min Estimated GFR (MDRD) 37 Glucose 86 (74-106) mg/dL Calcium 7.3 L (8.5-10.1) mg/dL Magnesium 1.9 (1.8-2.4) mg/dL Med Orders - Current: Current Medications Acetaminophen (Tylenol) 650 mg PO TIDAC [facility] Last Admin: 03/18/19 11:12 Dose: 650 mg Amitriptyline HCl (Elavil) 50 mg PO BEDTIME [facility] Last Admin: 03/17/19 20:43 Dose: 50 mg Azathioprine (Imuran) 50 mg PO DAILY [facility] Last Admin: 03/18/19 08:48 Dose: 50 mg Calamine/Phenol (Calmoseptine) 0 gm TOP Q2HR PRN PRN Reason: Rash Cyclobenzaprine HCl (Flexeril) 5 mg PO TID PRN PRN Reason: Pain Dicyclomine HCl (Bentyl) 10 mg PO QID PRN PRN Reason: Cramping Diphenhydramine HCl (Benadryl) 25 mg IVPUSH Q6H PRN PRN Reason: Nausea Last Admin: 03/18/19 13:37 Dose: 25 mg Famotidine (Pepcid) 20 mg PO BEDTIME [facility] Last Admin: 03/17/19 20:43 Dose: 20 mg Gabapentin (Neurontin) 300 mg PO TID [facility] Last Admin: 03/18/19 12:41 Dose: 300 mg Hydromorphone HCl (Dilaudid) 2 mg PO Q4H PRN PRN Reason: Pain Last Admin: 03/17/19 20:53 Dose: 2 mg Hydromorphone HCl (Dilaudid) 0.5 mg IVPUSH Q4H PRN PRN Reason: Pain Last Admin: 03/18/19 13:36 Dose: 0.5 mg Lactated Ringer's (Ringers, Lactated) 1,000 mls @ 100 mls/hr IV ASDIRECTED [facility] Last Admin: 03/18/19 06:41 Dose: 100 mls/hr Lactobacillus Rhamnosus (Culturelle) 1 cap PO DAILY [facility] Last Admin: 03/18/19 08:47 Dose: 1 cap Lidocaine/Prilocaine (Emla Crm) 5 gm TOP DAILY PRN PRN Reason: Port Access Melatonin (Melatonin) 6 mg PO BEDTIME [facility] Last Admin: 03/17/19 20:43 Dose: 6 mg Methyl Salicylate (Icy Hot Cream) 1 gm TOP QID PRN PRN Reason: Pain (mild 1-3) Metoclopramide HCl (Reglan) 5 mg PO TIDAC [facility] Last Admin: 03/18/19 11:12 Dose: 5 mg Amylase/Lipase/Protease (Own Supply ) 1 cap PO TIDMEALS [facility] Last Admin: 03/18/19 12:43 Dose: Not Given Doxylamine Succinate [Unisom Sleep Aid] 25mg 0 mg PO BEDTIME PRN PRN Reason: [place] Dronabinol [Marinol] (5mg (Own Supply)) 0 mg PO BIDAC [facility] Last Admin: 03/18/19 06:01 Dose: 5 mg Omeprazole (Omeprazole) 40 mg PO BIDAC [facility] Last Admin: 03/18/19 06:00 Dose: 40 mg Ondansetron HCl (Zofran Odt) 8 mg PO TID PRN PRN Reason: Nausea Last Admin: 03/18/19 10:24 Dose: 8 mg Potassium Chloride (Klor-Con) 20 meq PO BID [facility] Last Admin: 03/18/19 08:47 Dose: 20 meq Prednisone (Prednisone) 40 mg PO DAILY [facility] Last Admin: 03/18/19 08:47 Dose: 40 mg Promethazine HCl (Phenergan) 25 mg PO TID [facility] Last Admin: 03/18/19 12:41 Dose: 25 mg Sertraline HCl (Zoloft) 25 mg PO DAILY [facility] Last Admin: 03/18/19 08:48 Dose: 25 mg Simethicone (Simethicone) 80 mg PO QID PRN PRN Reason: Gas Sodium Chloride (Saline Flush) 10 ml IV ASDIRECTED PRN PRN Reason: Keep Vein Open Trazodone HCl (Trazodone) 50 mg PO BEDTIME [facility] Last Admin: 03/17/19 20:43 Dose: 50 mg Discontinued Medications Hydromorphone HCl (Dilaudid) 0.5 mg IVPUSH Q4H PRN PRN Reason: Pain Last Admin: 03/17/19 06:53 Dose: 0.5 mg Hydromorphone HCl (Dilaudid) 0.25 mg IVPUSH ONETIME ONE Stop: 03/17/19 12:04 Last Admin: 03/17/19 13:40 Dose: 0.25 mg Potassium Chloride 20 meq/ (Premix) 50 mls @ 25 mls/hr IV ONETIME ONE Stop: 03/17/19 10:09 Last Admin: 03/17/19 09:00 Dose: 25 mls/hr Potassium Chloride 20 meq/ (Premix) 50 mls @ 25 mls/hr IV Q2H [facility] Stop: 03/18/19 12:59 Last Admin: 03/18/19 11:08 Dose: 25 mls/hr *Q Meaningful Use (DIS) - VTE *Q VTE Anticoagulation Contraindications: Med/TX Not Indicated/Need
== END 2019-03-18 16:10 | disposition short-term general hospital (02) ==
LOC: VM.MS 14:10
PROVIDERS: ADMIT Family Medicine; ATTEND Family Medicine
DX: E87.6 Hypokalemia (principal); E87.1 Hypo-osmolality and hyponatremia; N17.9 Acute kidney failure, unspecified; N18.3 Chronic kidney disease, stage 3 (moderate); A04.72 Enterocolitis due to Clostridium difficile, not specified as recurrent; K50.919 Crohn's disease, unspecified, with unspecified complications; K21.9 Gastro-esophageal reflux disease without esophagitis; D64.9 Anemia, unspecified; E86.0 Dehydration; Z79.891 Long term (current) use of opiate analgesic; Z88.0 Allergy status to penicillin; Z88.8 Allergy status to other drugs, medicaments and biological substances; Z88.5 Allergy status to narcotic agent; Z79.52 Long term (current) use of systemic steroids; Z79.899 Other long term (current) drug therapy
CPT/HCPCS: 36415; 80048; 83690; 83735; 85025; 85652; 86140; 87324; 87493; 96361; 96365; 96366; 96375; 96376; A4217; A9270-GY; G0378; G0379; J1170; J1200; J3480; J7120; J7500

== ENCOUNTER 2019-04-14 14:36 | Observation (INO) | payer BC, OTHER ==
[2019-04-14] MEDS ORDERED: Prochlorperazine 10 MG/2 ML SDV IV ONE (14:47)
[2019-04-14] MEDS ORDERED: diphenhydrAMINE 50 MG/ML SDV IVPUSH ONE (14:48)
[2019-04-14] MEDS ORDERED: Sodium Chloride 0.9% 1,000 ML IV ONE (14:49)
--- NOTE | 2019-04-14 15:38 | EDM.PDOC ---
ED HPI GENERAL MEDICAL PROBLEM - General Chief Complaint: Abdominal Pain Time Seen by Provider: 04/14/19 14:37 Source of Information: Reports: Patient History Limitations: Reports: No Limitations - History of Present Illness INITIAL COMMENTS - FREE TEXT/NARRATIVE: Pt. presents to ER with complaints of abdominal pain. She has a history of Crohn 's disease and feels as though she is having a flare-up. She has been hospitalized numerous times for this in the past, the last episode being approx. 1 month ago. She is on Remicade. She states that she has not been having any fever or chills. No chest pain or shortness of breath. She complains of nausea but no vomiting. She states that she has been having blood in her stools and states that this is a common problem for her. Pt. is currently on dilaudid 2 mg every 8 hours for abdominal pain and she states that this does not help the problem. Onset: Today Onset Date: 04/14/19 Location: Reports: Abdomen Lower Abdominal Pain Score (Numeric/FACES): 8 - Related Data Allergies Allergy/AdvReac Type Severity Reaction Status Date / Time codeine Allergy Severe Anaphylactic Verified 04/14/19 14:36 Shock Penicillins Allergy Severe Anaphylactic Verified 04/14/19 14:36 Shock propoxyphene Allergy Severe Anaphylactic Verified 04/14/19 14:36 [From Darvocet-N] Shock lactose AdvReac Diarrhea Verified 04/14/19 14:36 metoclopramide [From Reglan] AdvReac Stomach Verified 04/14/19 14:36 Ache morphine AdvReac Headache Verified 04/14/19 14:36 Home Meds: Home Meds Dicyclomine [Bentyl] 10 mg PO QID PRN 05/03/18 [History] Ondansetron HCl [Ondansetron] 8 mg PO TID PRN 05/03/18 [History] Ranitidine HCl [Ranitidine] 150 mg PO BEDTIME 05/03/18 [History] Lactobacillus Rhamnosus GG [Culturelle] 1 cap PO DAILY 09/01/18 [History] Amitriptyline [Elavil] 50 mg PO BEDTIME 11/23/18 [History] Dronabinol [Marinol] 5 mg PO BIDAC 11/23/18 [History] Gabapentin [Neurontin] 300 mg PO TID 11/23/18 [History] Melatonin 6 mg PO BEDTIME 11/23/18 [History] Omeprazole Magnesium [Prilosec Otc] 40 mg PO BIDAC 11/23/18 [History] Promethazine [Phenergan] 25 mg PO TID 11/23/18 [History] Simethicone 80 mg PO QID PRN 11/23/18 [History] traZODone HCl [Trazodone HCl] 50 mg PO BEDTIME 11/23/18 [History] Amylase/Lipase/Protease [Johnna DR 24,000 Unit] 1 cap PO TIDMEALS 02/22/19 [ History] Cyclobenzaprine [Flexeril] 5 mg PO TID PRN 02/22/19 [History] Potassium Chloride 20 meq PO BID 02/22/19 [History] Sertraline [Zoloft] 25 mg PO DAILY 02/22/19 [History] azaTHIOprine [Imuran] 50 mg PO DAILY 02/22/19 [History] Acetaminophen [Tylenol] 650 mg PO TIDAC tablet 03/01/19 [Rx] Menthol/Methyl Salicylate [Icy Hot] 0 gm TOP QID PRN tube 03/01/19 [Rx] Metoclopramide HCl [Reglan] 5 mg PO TID #90 tablet 03/01/19 [Rx] predniSONE [Prednisone] 40 mg PO DAILY #0 03/01/19 [Rx] Doxylamine Succinate [Unisom Sleep Aid] 25 mg PO BEDTIME PRN 03/16/19 [History] Zinc Oxide [Desitin Creamy Diaper Rash Crm] 1 applic TOP Q2HR PRN 03/16/19 [ History] HYDROmorphone [Dilaudid] 0.5 mg IVPUSH Q4H PRN syringe 03/18/19 [Rx] Lactated Ringers [Ringers, Lactated] 100 ml IV ASDIRECTED bag 03/18/19 [Rx] Sodium Chloride 0.9% [Saline Flush] 10 ml IV ASDIRECTED PRN syringe 03/18/19 [ Rx] diphenhydrAMINE [Benadryl] 25 mg IVPUSH Q6H PRN sdv 03/18/19 [Rx] Past Medical History HEENT History: Reports: None Cardiovascular History: Reports: None Respiratory History: Reports: None Gastrointestinal History: Reports: GERD, Inflammatory Bowel Disease Other Gastrointestinal History: crohn's disease. 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 Musculoskeletal History: Reports: Back Pain, Chronic Neurological History: Reports: None Psychiatric History: Reports: Anxiety Endocrine/Metabolic History: Reports: None Hematologic History: Reports: Anemia Immunologic History: Reports: Immunosuppression Oncologic (Cancer) History: Reports: None Dermatologic History: Reports: None - Infectious Disease History Infectious Disease History: Reports: C-Difficile - Past Surgical History GI Surgical History: Reports: Appendectomy, Cholecystectomy, Colonoscopy, Other (See Below) Other GI Surgeries/Procedures: partial sigmoidectomy Social & Family History - Family History Family Medical History: Noncontributory Neurological: Reports: Parkinson's Oncologic: Reports: Brain, Liver - Tobacco Use Smoking Status *Q: Never Smoker - Caffeine Use Caffeine Use: Reports: None, Coffee - Living Situation & Occupation Living situation: Reports: , with Significant Other (from [place] but staying with her daughter in [place]) 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 GENERAL - Review of Systems Review Of Systems: See Below Constitutional: Reports: No Symptoms HEENT: Reports: No Symptoms Respiratory: Reports: No Symptoms Cardiovascular: Reports: No Symptoms Endocrine: Reports: No Symptoms GI/Abdominal: Reports: Abdominal Pain, Bloody Stool, Nausea : Reports: No Symptoms Musculoskeletal: Reports: No Symptoms Skin: Reports: No Symptoms Neurological: Reports: No Symptoms Psychiatric: Reports: No Symptoms Hematologic/Lymphatic: Reports: No Symptoms Immunologic: Reports: No Symptoms ED EXAM, GENERAL - Physical Exam Exam: See Below Exam Limited By: No Limitations General Appearance: Alert, WD/WN, No Apparent Distress Nose: Normal Inspection, No Blood Throat/Mouth: Normal Inspection, Normal Lips, Normal Teeth, Normal Gums, Normal Oropharynx, Normal Voice, No Airway Compromise Head: Atraumatic, Normocephalic Neck: Normal Inspection, Supple, Non-Tender Respiratory/Chest: No Respiratory Distress, Lungs Clear, Normal Breath Sounds, No Accessory Muscle Use, Chest Non-Tender Cardiovascular: Normal Peripheral Pulses, Regular Rate, Rhythm, No Edema, No Gallop, No JVD, No Murmur, No Rub Peripheral Pulses: 4+: Radial (R) GI/Abdominal: Soft, No Organomegaly, No Distention, No Mass, Tender (Female) Exam: Deferred Rectal (Female) Exam: Deferred Back Exam: Normal Inspection, Full Range of Motion Extremities: Normal Inspection, Normal Range of Motion, Non-Tender, No Pedal Edema, Normal Capillary Refill Neurological: Alert, Oriented, CN II-XII Intact, Normal Cognition, Normal Gait, Normal Reflexes, No Motor/Sensory Deficits Psychiatric: Normal Affect, Normal Mood Skin Exam: Warm, Dry, Intact, Normal Color, No Rash Course - Vital Signs Last Recorded V/S: Last Vital Signs Temp 36.9 C 04/14/19 14:37 Pulse 74 04/14/19 14:37 Resp 16 04/14/19 14:37 BP 122/64 04/14/19 14:37 Pulse Ox 100 04/14/19 14:37 - Orders/Labs/Meds Orders: Active Orders 24 hr Category Date Time Status Patient Status [ADT] Routine ADT 04/14/19 17:33 Active Labs: Laboratory Tests 04/14/19 04/14/19 04/14/19 Range/Units 14:52 14:52 14:52 WBC 14.4 H (4.0-10.0) x10^3/uL RBC 3.22 L (4.00-5.50) x10^6/uL Hgb 9.4 L D (12.0-16.0) g/dL Hct 29.9 L (33.0-47.0) % MCV 92.9 (78.0-93.0) fL MCH 29.2 (26.0-32.0) pg MCHC 31.4 L (32.0-36.0) g/dL RDW Coeff of Brianda 14.0 (10.0-15.0) % Plt Count 596 H D (130-400) x10^3/uL Add Manual Diff Yes Neutrophils % (Manual) 80 (50-80) % Band Neutrophils % 7 H (0-6) % Lymphocytes % (Manual) 6 L (25-50) % Monocytes % (Manual) 4 (2-11) % Eosinophils % (Manual) 2 (0-4) % Blast Cells % 1 H (0) % Platelet Estimate Marked inc H Hypochromasia 1+ slight H PT 9.7 L (10.0-12.8) SEC INR 0.9 L (2.0-3.5) Sodium 139 (136-145) mmol/L Potassium 4.1 (3.5-5.1) mmol/L Chloride 104 (98-107) mmol/L Carbon Dioxide 23 (21-32) mmol/L Anion Gap 16.1 (10-20) mmol/L BUN 34 H (7-18) mg/dL Creatinine 1.6 H (0.55-1.02) mg/dL Est Cr Clr Drug Dosing 30.83 mL/min Estimated GFR (MDRD) 35 Glucose 93 (74-106) mg/dL Lactic Acid (0.4-2.0) mmol/L Calcium 8.9 (8.5-10.1) mg/dL Corrected Calcium 9.54 (8.5-10.1) mg/dL Total Bilirubin 0.2 (0.2-1.0) mg/dL AST 17 (15-37) U/L ALT 27 (14-59) U/L Alkaline Phosphatase 89 (46-116) U/L C-Reactive Protein 0.3 (<=0.9) mg/dL Total Protein 7.4 (6.4-8.2) g/dL Albumin 3.2 L (3.4-5.0) g/dL Globulin 4.2 Albumin/Globulin Ratio 0.76 // Range/Units 14:52 WBC (4.0-10.0) x10^3/uL RBC (4.00-5.50) x10^6/uL Hgb (12.0-16.0) g/dL Hct (33.0-47.0) % MCV (78.0-93.0) fL MCH (26.0-32.0) pg MCHC (32.0-36.0) g/dL RDW Coeff of Brianda (10.0-15.0) % Plt Count (130-400) x10^3/uL Add Manual Diff Neutrophils % (Manual) (50-80) % Band Neutrophils % (0-6) % Lymphocytes % (Manual) (25-50) % Monocytes % (Manual) (2-11) % Eosinophils % (Manual) (0-4) % Blast Cells % (0) % Platelet Estimate Hypochromasia PT (10.0-12.8) SEC INR (2.0-3.5) Sodium (136-145) mmol/L Potassium (3.5-5.1) mmol/L Chloride (98-107) mmol/L Carbon Dioxide (21-32) mmol/L Anion Gap (10-20) mmol/L BUN (7-18) mg/dL Creatinine (0.55-1.02) mg/dL Est Cr Clr Drug Dosing mL/min Estimated GFR (MDRD) Glucose (74-106) mg/dL Lactic Acid 1.5 (0.4-2.0) mmol/L Calcium (8.5-10.1) mg/dL Corrected Calcium (8.5-10.1) mg/dL Total Bilirubin (0.2-1.0) mg/dL AST (15-37) U/L ALT (14-59) U/L Alkaline Phosphatase (46-116) U/L C-Reactive Protein (<=0.9) mg/dL Total Protein (6.4-8.2) g/dL Albumin (3.4-5.0) g/dL Globulin Albumin/Globulin Ratio Meds: Medications Discontinued Medications Generic Name Dose Route Start Last Admin Trade Name Freq PRN Reason Stop Dose Admin Diphenhydramine HCl 50 mg 04/14/19 14:48 04/14/19 14:59 Benadryl IVPUSH 04/14/19 14:49 50 mg ONETIME ONE Administration Hydromorphone HCl 1 mg 04/14/19 15:47 04/14/19 16:08 Dilaudid IVPUSH 04/14/19 15:48 1 mg ONETIME ONE Administration Sodium Chloride 1,000 mls @ 1,000 mls/hr 04/14/19 14:49 04/14/19 15:00 Normal Saline IV 04/14/19 15:48 1,000 mls/hr ONETIME ONE Administration Iopamidol 100 ml 04/14/19 16:19 04/14/19 16:40 Isovue-300 (61%) IVPUSH 04/14/19 16:20 100 ml ONETIME ONE Administration Methylprednisolone Sodium Succinate 125 mg 04/14/19 17:32 Solu-Medrol IVPUSH 04/14/19 17:33 ONETIME ONE Prochlorperazine Edisylate 5 mg 04/14/19 14:47 04/14/19 14:57 Compazine IV 04/14/19 14:48 5 mg ONETIME ONE Administration Departure - Departure Time of Disposition: 05:35 Disposition: Refer to Observation Clinical Impression: Colitis, Dehydration Acute Crohn's disease Qualifiers: Digestive disease complication type: with rectal bleeding Qualified Code(s): K50.911 - Crohn's disease, unspecified, with rectal bleeding - Discharge Information Referrals: Xiomy Oliva MD [Primary Care Provider] - Forms: ED Department Discharge - My Orders Last 24 Hours: My Active Orders 04/14/19 17:33 Patient Status [ADT] Routine - Assessment/Plan Admission H&P: Please use this note as an admission H&P Last 24 Hours: My Active Orders 04/14/19 17:33 Patient Status [ADT] Routine Plan: Pt. will be admitted observation. I did speak with Dr. Michael regarding this patient. Will start IV solu medrol for acute Crohn's flare-up. She has had 2 liters of IV fluid today. Will continue at 100ml/hr. Will trend her labs. She is a code 1.
[2019-04-14 15:42] LABS: ANION GAP 16.1 mmol/L (10-20)
[2019-04-14] MEDS ORDERED: HYDROmorphone 1 MG/ML Syringe IVPUSH ONE (15:47)
[2019-04-14] MEDS ORDERED: Iopamidol 612 MG/ML 100 ML Bottle IVPUSH ONE (16:19)
--- NOTE | 2019-04-14 17:17 | CT ---
[id number] CT/CT Abdomen Pelvis W IV EXAM: ABDOMEN AND PELVIS CT WITH CONTRAST INDICATION: Abdominal pain and history of Crohn's disease. COMPARISON: January 25, 2018. DISCUSSION: There is fluid and gas throughout the colon, correlate with history of diarrhea. The proximal small bowel is mildly dilated with the cecum measuring up to 6.5 cm in diameter. The distal small bowel is normal in caliber with no clear transition point to suggest stricture or obstruction. There is mild to moderate colonic wall thickening beginning at the splenic flexure and extending through the rectum with associated hyperenhancement. The rectum is thick-walled and hypervascular. Evidence of prior sigmoid colon resection. Overall findings appear increased in the colon from the splenic flexure to the sigmoid anastomosis and similar or minimally increased at the level of the rectosigmoid colon distal to the anastomosis. No pneumatosis, abscess, free air or free fluid is identified. No definite small bowel inflammation. Mild persistent thick-walled appearance of the duodenum and proximal small bowel with no definite hyperenhancement or surrounding inflammatory changes. The liver contains scattered subcentimeter hypodensities that are likely cysts, but too small to further characterize. The gallbladder surgically absent. A gastrojejunostomy tube is present with tip in satisfactory position in the jejunum. The kidneys contain multiple small scattered nonobstructing calculi and a few scattered cysts the largest in the upper pole of the right kidney about 17 mm in diameter. Probable catheter tip in the right atrium. The pancreas, spleen, adrenal glands and urinary bladder are normal in appearance. The osseous structures are unremarkable. IMPRESSION: 1. Mild to moderate colitis extending from the splenic flexure through the rectum to the level of the anus with evidence of active inflammation. These changes are similar in the colon distal to a sigmoid anastomosis, but appear new or increased in the section of colon from the splenic flexure to the sigmoid anastomosis. Tej Turner MD 04/14/19 1715 Thank you for allowing us to participate in the care of your patient.
[2019-04-14] MEDS ORDERED: methylPREDNISolone Sodium Succinate 125 MG/2 ML SDV IVPUSH ONE (17:32)
[2019-04-14] MEDS: D5 1/2 NS w/ 20 mEq/L KCl 1,000 ML IV SCH (19:25)
[2019-04-14] MEDS ORDERED: HYDROmorphone 2 MG Tab PO PRN (19:57)
[2019-04-14] MEDS ORDERED: DOXYLAMINE SUCCINATE 25 MG PO PRN (19:57)
[2019-04-14] MEDS ORDERED: Cyclobenzaprine 10 MG Tab PO PRN (19:57)
[2019-04-14] MEDS ORDERED: Ondansetron 4 MG Tab.DIS PO PRN (19:57)
[2019-04-14] MEDS ORDERED: Simethicone 80 MG Tab.Chew PO PRN (19:57)
[2019-04-14] MEDS ORDERED: Melatonin 3 MG Tab PO SCH (20:00)
[2019-04-14] MEDS ORDERED: Promethazine 25 MG Tab PO SCH (20:00)
[2019-04-14] MEDS ORDERED: Famotidine 20 MG Tab PO SCH (20:00)
[2019-04-14] MEDS ORDERED: Amitriptyline 25 MG Tab PO SCH (20:00)
[2019-04-14] MEDS ORDERED: traZODone 50 MG Tab PO SCH (20:00)
[2019-04-14] MEDS: Gabapentin 300 MG Cap PO SCH (20:41)
[2019-04-14] MEDS: Metoclopramide 5 MG Tab PO SCH (20:42)
[2019-04-14] MEDS: Dicyclomine 10 MG Cap PO SCH (20:44)
[2019-04-15] MEDS ORDERED: methylPREDNISolone Sodium Succinate 125 MG/2 ML SDV IVPUSH SCH (05:00)
[2019-04-15] MEDS: HYDROmorphone 2 MG Tab PO PRN ×2 (05:31→11:29)
[2019-04-15] MEDS: Prochlorperazine 5 MG Tab PO PRN ×2 (05:31→11:28)
[2019-04-15] MEDS: diphenhydrAMINE 50 MG/ML SDV IVPUSH PRN ×2 (05:31→11:33)
[2019-04-15] MEDS: D5 1/2 NS w/ 20 mEq/L KCl 1,000 ML IV SCH (05:38)
[2019-04-15] MEDS: Acetaminophen 325 MG Tab PO SCH ×2 (06:32→11:31)
[2019-04-15] MEDS ORDERED: Omeprazole 20 MG Cap.CR PO SCH (07:00)
[2019-04-15] MEDS ORDERED: Sertraline 25 MG Tab PO SCH (08:00)
[2019-04-15 08:03] LABS: ANION GAP 15.5 mmol/L (10-20)
[2019-04-15] MEDS: Dicyclomine 10 MG Cap PO SCH ×2 (08:27→11:28)
[2019-04-15] MEDS: Metoclopramide 5 MG Tab PO SCH ×2 (08:27→11:29)
[2019-04-15] MEDS: Gabapentin 300 MG Cap PO SCH ×2 (08:27→11:28)
--- NOTE | 2019-04-15 11:31 | PCM.DCSUM1 ---
Discharge Summary - Hospital Course Free Text/Narrative:: Pt. was admitted observation for increased abdominal pain and bloody diarrhea thought to be secondary to Crohn's flare. She States that she is feeling much better this AM. She was rehydrated overnight. Pain was able to be managed with oral dilaudid. Her white count was normal this AM, down from over 14,000 yesterday. She has not had any further bloody stools. Nausea is controlled. She states that she did vomiting some after breakfast but she states that this often happens. Denies any fever or chills. No chest pain or shortness of breath. No lightheadedness. Diagnosis: Stroke: No - Discharge Data Discharge Date: 04/15/19 Discharge Disposition: Home, Self-Care 01 Condition: Good - Discharge Diagnosis/Problem(s) (1) Acute Crohn's disease SNOMED Code(s): 43517986, 51290229 ICD Code: K50.90 - CROHN'S DISEASE, UNSPECIFIED, WITHOUT COMPLICATIONS Status: Acute Current Visit: Yes Qualifiers: Digestive disease complication type: with rectal bleeding Qualified Code(s) : K50.911 - Crohn's disease, unspecified, with rectal bleeding (2) Colitis SNOMED Code(s): 28441590 ICD Code: K52.9 - NONINFECTIVE GASTROENTERITIS AND COLITIS, UNSPECIFIED Status: Acute Current Visit: Yes - Discharge Plan Home Medications: Home Meds Ondansetron HCl [Ondansetron] 8 mg PO TID PRN 05/03/18 [History] Lactobacillus Rhamnosus GG [Culturelle] 1 cap PO DAILY 09/01/18 [History] Amitriptyline [Elavil] 50 mg PO BEDTIME 11/23/18 [History] Gabapentin [Neurontin] 300 mg PO TID 11/23/18 [History] Melatonin 6 mg PO BEDTIME 11/23/18 [History] Omeprazole Magnesium [Prilosec Otc] 40 mg PO BIDAC 11/23/18 [History] Promethazine [Phenergan] 25 mg PO TID 11/23/18 [History] Simethicone 80 mg PO QID PRN 11/23/18 [History] traZODone HCl [Trazodone HCl] 50 mg PO BEDTIME 11/23/18 [History] Amylase/Lipase/Protease [Johnna DR 24,000 Unit] 1 cap PO TIDMEALS 02/22/19 [ History] Cyclobenzaprine [Flexeril] 5 mg PO TID PRN 02/22/19 [History] Potassium Chloride 20 meq PO TID 02/22/19 [History] Sertraline [Zoloft] 25 mg PO DAILY 02/22/19 [History] azaTHIOprine [Imuran] 50 mg PO DAILY 02/22/19 [History] Acetaminophen [Tylenol] 650 mg PO TIDAC tablet 03/01/19 [Rx] Menthol/Methyl Salicylate [Icy Hot] 0 gm TOP QID PRN tube 03/01/19 [Rx] Metoclopramide HCl [Reglan] 5 mg PO TID #90 tablet 03/01/19 [Rx] Doxylamine Succinate [Unisom Sleep Aid] 25 mg PO BEDTIME PRN 03/16/19 [History] Zinc Oxide [Desitin Creamy Diaper Rash Crm] 1 applic TOP Q2HR PRN 03/16/19 [ History] Dicyclomine HCl [Bentyl] 10 mg PO TID 04/14/19 [History] Famotidine 20 mg PO BEDTIME 04/14/19 [History] HYDROmorphone [Dilaudid] 1 tab PO Q4HR PRN 04/14/19 [History] Lidocaine/Prilocaine [Lidocaine-Prilocaine Cream] 1 applic TOP DAILY PRN [History] Multivitamin with Minerals [Multiple Vitamin] 1 tab PO DAILY 04/14/19 [History] predniSONE [Prednisone] 35 mg PO DAILY 04/14/19 [History] Forms: ED Department Discharge Referrals: Xiomy Oliva MD [Primary Care Provider] - - Discharge Summary/Plan Comment DC Time >30 min.: Yes - General Info Date of Service: 04/15/19 Functional Status: Reports: Pain Controlled - Review of Systems General: Reports: No Symptoms HEENT: Reports: No Symptoms Pulmonary: Reports: No Symptoms Cardiovascular: Reports: No Symptoms Gastrointestinal: Reports: No Symptoms Genitourinary: Reports: No Symptoms Musculoskeletal: Reports: No Symptoms Skin: Reports: No Symptoms Neurological: Reports: No Symptoms Psychiatric: Reports: No Symptoms - Patient Data Vitals - Most Recent: Last Vital Signs Temp 36.2 C 04/15/19 05:15 Pulse 76 04/15/19 05:15 Resp 18 04/15/19 05:15 BP 94/52 L 04/15/19 05:15 Pulse Ox 98 04/15/19 05:15 Weight - Most Recent: 41.73 kg I&O - Last 24 hours: Intake & Output 04/14/19 04/15/19 04/15/19 22:59 06:59 14:59 Intake Total 1380 360 Balance 1380 360 Lab Results - Last 24 hrs: Laboratory Results - last 24 hr 04/14/19 04/14/19 04/14/19 Range/Units 14:52 14:52 14:52 WBC 14.4 H (4.0-10.0) x10^3/uL RBC 3.22 L (4.00-5.50) x10^6/uL Hgb 9.4 L D (12.0-16.0) g/dL Hct 29.9 L (33.0-47.0) % MCV 92.9 (78.0-93.0) fL MCH 29.2 (26.0-32.0) pg MCHC 31.4 L (32.0-36.0) g/dL RDW Coeff of Brianda 14.0 (10.0-15.0) % Plt Count 596 H D (130-400) x10^3/uL Neut % (Auto) (50.0-80.0) % Lymph % (Auto) (25.0-50.0) % [place] % (Auto) (2.0-11.0) % Eos % (Auto) (0.0-4.0) % Baso % (Auto) (0.2-1.2) % Add Manual Diff Yes Neutrophils % (Manual) 80 (50-80) % Band Neutrophils % 7 H (0-6) % Lymphocytes % (Manual) 6 L (25-50) % Monocytes % (Manual) 4 (2-11) % Eosinophils % (Manual) 2 (0-4) % Blast Cells % 1 H (0) % Platelet Estimate Marked inc H Hypochromasia 1+ slight H PT 9.7 L (10.0-12.8) SEC INR 0.9 L (2.0-3.5) Sodium 139 (136-145) mmol/L Potassium 4.1 (3.5-5.1) mmol/L Chloride 104 (98-107) mmol/L Carbon Dioxide 23 (21-32) mmol/L Anion Gap 16.1 (10-20) mmol/L BUN 34 H (7-18) mg/dL Creatinine 1.6 H (0.55-1.02) mg/dL Est Cr Clr Drug Dosing 30.83 mL/min Estimated GFR (MDRD) 35 Glucose 93 (74-106) mg/dL Lactic Acid (0.4-2.0) mmol/L Calcium 8.9 (8.5-10.1) mg/dL Corrected Calcium 9.54 (8.5-10.1) mg/dL Total Bilirubin 0.2 (0.2-1.0) mg/dL AST 17 (15-37) U/L ALT 27 (14-59) U/L Alkaline Phosphatase 89 (46-116) U/L C-Reactive Protein 0.3 (<=0.9) mg/dL Total Protein 7.4 (6.4-8.2) g/dL Albumin 3.2 L (3.4-5.0) g/dL Globulin 4.2 Albumin/Globulin Ratio 0.76 04/14/19 04/15/19 04/15/19 Range/Units 14:52 06:50 06:50 WBC 8.3 (4.0-10.0) x10^3/uL RBC 2.89 L (4.00-5.50) x10^6/uL Hgb 8.4 L (12.0-16.0) g/dL Hct 27.0 L (33.0-47.0) % MCV 93.4 H (78.0-93.0) fL MCH 29.1 (26.0-32.0) pg MCHC 31.1 L (32.0-36.0) g/dL RDW Coeff of Brianda 13.8 (10.0-15.0) % Plt Count 502 H D (130-400) x10^3/uL Neut % (Auto) 92.0 H (50.0-80.0) % Lymph % (Auto) 7.3 L (25.0-50.0) % [place] % (Auto) 0.5 L (2.0-11.0) % Eos % (Auto) 0.0 (0.0-4.0) % Baso % (Auto) 0.2 (0.2-1.2) % Add Manual Diff Neutrophils % (Manual) (50-80) % Band Neutrophils % (0-6) % Lymphocytes % (Manual) (25-50) % Monocytes % (Manual) (2-11) % Eosinophils % (Manual) (0-4) % Blast Cells % (0) % Platelet Estimate Hypochromasia PT (10.0-12.8) SEC INR (2.0-3.5) Sodium 138 (136-145) mmol/L Potassium 4.5 (3.5-5.1) mmol/L Chloride 108 H (98-107) mmol/L Carbon Dioxide 19 L (21-32) mmol/L Anion Gap 15.5 (10-20) mmol/L BUN 29 H (7-18) mg/dL Creatinine 1.5 H (0.55-1.02) mg/dL Est Cr Clr Drug Dosing 30.87 mL/min Estimated GFR (MDRD) 37 Glucose 173 H (74-106) mg/dL Lactic Acid 1.5 (0.4-2.0) mmol/L Calcium 8.4 L (8.5-10.1) mg/dL Corrected Calcium 9.44 (8.5-10.1) mg/dL Total Bilirubin 0.2 (0.2-1.0) mg/dL AST 11 L (15-37) U/L ALT 20 (14-59) U/L Alkaline Phosphatase 73 (46-116) U/L C-Reactive Protein (<=0.9) mg/dL Total Protein 6.0 L (6.4-8.2) g/dL Albumin 2.7 L (3.4-5.0) g/dL Globulin 3.3 Albumin/Globulin Ratio 0.82 Med Orders - Current: Current Medications Acetaminophen (Tylenol) 650 mg PO TIDAC [facility] Last Admin: 04/15/19 06:32 Dose: 650 mg Amitriptyline HCl (Elavil) 50 mg PO BEDTIME [facility] Last Admin: 04/14/19 20:40 Dose: 50 mg Cyclobenzaprine HCl (Flexeril) 5 mg PO TID PRN PRN Reason: Pain Last Admin: 04/14/19 20:41 Dose: 5 mg Dicyclomine HCl (Bentyl) 10 mg PO TID [facility] Last Admin: 04/15/19 08:27 Dose: 10 mg Diphenhydramine HCl (Benadryl) 50 mg IVPUSH Q6H PRN PRN Reason: Nausea/Vomiting Last Admin: 04/15/19 05:31 Dose: 50 mg Famotidine (Pepcid) 20 mg PO BEDTIME [facility] Last Admin: 04/14/19 20:42 Dose: 20 mg Gabapentin (Neurontin) 300 mg PO TID [facility] Last Admin: 04/15/19 08:27 Dose: 300 mg Hydromorphone HCl (Dilaudid) 4 mg PO Q4H PRN PRN Reason: Pain Last Admin: 04/15/19 05:31 Dose: 4 mg Potassium Chloride/Dextrose/Sod Cl (D5 1/2 Ns W/ 20 Meq/L Kcl) 1,000 mls @ 100 mls/hr IV ASDIRECTED [facility] Last Admin: 04/15/19 05:38 Dose: 100 mls/hr Melatonin (Melatonin) 6 mg PO BEDTIME [facility] Last Admin: 04/14/19 20:41 Dose: 6 mg Methylprednisolone Sodium Succinate (Solu-Medrol) 125 mg IVPUSH Q12H [facility] Last Admin: 04/15/19 05:22 Dose: 125 mg Metoclopramide HCl (Reglan) 5 mg PO TID [facility] Last Admin: 04/15/19 08:27 Dose: 5 mg Non-Formulary Medication (Doxylamine Succinate [Unisom Sleep Aid]) 25 mg PO BEDTIME PRN PRN Reason: [place] Omeprazole (Omeprazole) 40 mg PO DAILY@0700 [facility] Last Admin: 04/15/19 06:33 Dose: 40 mg Ondansetron HCl (Zofran Odt) 8 mg PO TID PRN PRN Reason: Nausea Last Admin: 04/14/19 20:40 Dose: 8 mg Prochlorperazine Maleate (Compazine) 5 mg PO Q6H PRN PRN Reason: Nausea/Vomiting Last Admin: 04/15/19 05:31 Dose: 5 mg Sertraline HCl (Zoloft) 25 mg PO DAILY [facility] Last Admin: 04/15/19 08:27 Dose: 25 mg Simethicone (Simethicone) 80 mg PO QID PRN PRN Reason: Gas Last Admin: 04/14/19 20:42 Dose: 80 mg Trazodone HCl (Trazodone) 50 mg PO BEDTIME [facility] Last Admin: 04/14/19 20:40 Dose: 50 mg Discontinued Medications Diphenhydramine HCl (Benadryl) 50 mg IVPUSH ONETIME ONE Stop: 04/14/19 14:49 Last Admin: 04/14/19 14:59 Dose: 50 mg Hydromorphone HCl (Dilaudid) 1 mg IVPUSH ONETIME ONE Stop: 04/14/19 15:48 Last Admin: 04/14/19 16:08 Dose: 1 mg Hydromorphone HCl (Dilaudid) 2 mg PO Q4HR PRN PRN Reason: Pain Last Admin: 04/14/19 20:42 Dose: 2 mg Sodium Chloride (Normal Saline) 1,000 mls @ 1,000 mls/hr IV ONETIME ONE Stop: 04/14/19 15:48 Last Admin: 04/14/19 15:00 Dose: 1,000 mls/hr Iopamidol (Isovue-300 (61%)) 100 ml IVPUSH ONETIME ONE Stop: 04/14/19 16:20 Last Admin: 04/14/19 16:40 Dose: 100 ml Methylprednisolone Sodium Succinate (Solu-Medrol) 125 mg IVPUSH ONETIME ONE Stop: 04/14/19 17:33 Last Admin: 04/14/19 19:12 Dose: 125 mg Prochlorperazine Edisylate (Compazine) 5 mg IV ONETIME ONE Stop: 04/14/19 14:48 Last Admin: 04/14/19 14:57 Dose: 5 mg Promethazine HCl (Phenergan) 25 mg PO TID [facility] Last Admin: 04/14/19 20:42 Dose: 25 mg - Exam General: Reports: Alert, Oriented GI/Abdominal Exam: Normal Bowel Sounds, Soft, Non-Tender, No Organomegaly, No Distention, No Abnormal Bruit, No Mass (Female) Exam: Deferred Rectal (Female) Exam: Deferred Back Exam: Reports: Normal Inspection, Full Range of Motion Extremities: Normal Inspection, Normal Range of Motion, Non-Tender, No Pedal Edema, Normal Capillary Refill Skin: Reports: Warm, Dry, Intact Neurological: Reports: No New Focal Deficit Psy/Mental Status: Reports: Alert, Anxious
== END 2019-04-15 13:20 | disposition home or self-care (01) ==
LOC: VM.ED 14:36 → VM.MS 17:33
PROVIDERS: ADMIT Physician Assistant; ATTEND Physician Assistant
DX: K50.911 Crohn's disease, unspecified, with rectal bleeding (principal); K52.9 Noninfective gastroenteritis and colitis, unspecified; K21.9 Gastro-esophageal reflux disease without esophagitis; N18.9 Chronic kidney disease, unspecified; Z88.0 Allergy status to penicillin; Z88.5 Allergy status to narcotic agent; Z88.8 Allergy status to other drugs, medicaments and biological substances; Z79.52 Long term (current) use of systemic steroids; Z79.899 Other long term (current) drug therapy
CPT/HCPCS: 36415; 74177; 80053; 83605; 85025; 85610; 86140; 96361; 96374; 96375; 96376; 99285-25; A9270-GY; G0378; J0780; J1170; J1200; J2930; J3480; J7030; Q0164; Q9967

== ENCOUNTER 2019-04-25 10:39 | Emergency (ER) | payer BC, OTHER ==
[2019-04-25] MEDS ORDERED: Lactated Ringers 1,000 ML IV SCH (10:40)
[2019-04-25] MEDS ORDERED: diphenhydrAMINE 50 MG/ML SDV IVPUSH ONE (10:52)
[2019-04-25] MEDS ORDERED: Prochlorperazine 10 MG/2 ML SDV IV ONE (10:52)
[2019-04-25] MEDS ORDERED: methylPREDNISolone Sodium Succinate 125 MG/2 ML SDV IVPUSH ONE (10:54)
--- NOTE | 2019-04-25 11:07 | EDM.PDOC ---
ED HPI GENERAL MEDICAL PROBLEM - General Chief Complaint: General Stated Complaint: ER Time Seen by Provider: 04/25/19 10:47 Source of Information: Reports: Patient, Old Records, Provider History Limitations: Reports: No Limitations - History of Present Illness INITIAL COMMENTS - FREE TEXT/NARRATIVE: Patient presents with complaints of nausea and abdominal pain. She is well known to the ER here with chronic complaints of this nature. Has been seen numerous times with and without active colitis. History of Crohn's disease. She has had surgical removal of appendix and gall bladder, as well as partial colectomy. States her pain is in the left upper and right lower quadrants. Receiving remicade. Is here currently on an outpatient basis for routine fluid administration. Did call her primary and was suggested to come into the clinic urgently there or present to the ED. No active vomiting. Denies chest pain, SOB, states she chronically has blood in urine and stool. Does have oral dilaudid to take at home for abdominal pain. No active diagnosis for cause of chronic pain, nausea, vomiting in the abdomen and has seen numerous doctors and specialties. Last seen and admitted earlier this April 14, 2019. Onset: Today, Gradual Duration: Getting Worse Location: Reports: Abdomen Severity: Moderate Improves with: Reports: Medication Associated Symptoms: Reports: Nausea/Vomiting Left Shoulder Pain Score (Numeric/FACES): 8 Abdominal Pain Score (Numeric/FACES): 8 - Related Data Allergies Allergy/AdvReac Type Severity Reaction Status Date / Time codeine Allergy Severe Anaphylactic Verified 04/25/19 10:42 Shock Penicillins Allergy Severe Anaphylactic Verified 04/25/19 10:42 Shock propoxyphene Allergy Severe Anaphylactic Verified 04/25/19 10:42 [From Darvocet-N] Shock lactose AdvReac Diarrhea Verified 04/25/19 10:42 metoclopramide [From Reglan] AdvReac Stomach Verified 04/25/19 10:42 Ache morphine AdvReac Headache Verified 04/25/19 10:42 Home Meds: Home Meds Ondansetron HCl [Ondansetron] 8 mg PO TID PRN 05/03/18 [History] Lactobacillus Rhamnosus GG [Culturelle] 1 cap PO DAILY 09/01/18 [History] Amitriptyline [Elavil] 50 mg PO BEDTIME 11/23/18 [History] Gabapentin [Neurontin] 300 mg PO TID 11/23/18 [History] Melatonin 6 mg PO BEDTIME 11/23/18 [History] Omeprazole Magnesium [Prilosec Otc] 40 mg PO BIDAC 11/23/18 [History] Promethazine [Phenergan] 25 mg PO TID 11/23/18 [History] Simethicone 80 mg PO QID PRN 11/23/18 [History] traZODone HCl [Trazodone HCl] 50 mg PO BEDTIME 11/23/18 [History] Amylase/Lipase/Protease [[place] DR 24,000 Unit] 1 cap PO TIDMEALS 02/22/19 [ History] Cyclobenzaprine [Flexeril] 5 mg PO TID PRN 02/22/19 [History] Potassium Chloride 20 meq PO TID 02/22/19 [History] Sertraline [Zoloft] 25 mg PO DAILY 02/22/19 [History] azaTHIOprine [Imuran] 50 mg PO DAILY 02/22/19 [History] Acetaminophen [Tylenol] 650 mg PO TIDAC tablet 03/01/19 [Rx] Menthol/Methyl Salicylate [Icy Hot] 0 gm TOP QID PRN tube 03/01/19 [Rx] Metoclopramide HCl [Reglan] 5 mg PO TID #90 tablet 03/01/19 [Rx] Doxylamine Succinate [Unisom Sleep Aid] 25 mg PO BEDTIME PRN 03/16/19 [History] Zinc Oxide [Desitin Creamy Diaper Rash Crm] 1 applic TOP Q2HR PRN 03/16/19 [ History] Dicyclomine HCl [Bentyl] 10 mg PO TID 04/14/19 [History] Famotidine 20 mg PO BEDTIME 04/14/19 [History] HYDROmorphone [Dilaudid] 1 tab PO Q4HR PRN 04/14/19 [History] Lidocaine/Prilocaine [Lidocaine-Prilocaine Cream] 1 applic TOP DAILY PRN [History] Multivitamin with Minerals [Multiple Vitamin] 1 tab PO DAILY 04/14/19 [History] predniSONE [Prednisone] 35 mg PO DAILY 04/14/19 [History] Past Medical History HEENT History: Reports: None Cardiovascular History: Reports: None Respiratory History: Reports: None Gastrointestinal History: Reports: GERD, Inflammatory Bowel Disease Other Gastrointestinal History: crohn's disease. colitis Genitourinary History: Reports: Acute Renal Failure, Chronic Renal Insuffiency [place] History: Reports: None Musculoskeletal History: Reports: Back Pain, Chronic Neurological History: Reports: None Psychiatric History: Reports: Anxiety Endocrine/Metabolic History: Reports: None Hematologic History: Reports: Anemia Immunologic History: Reports: Immunosuppression Oncologic (Cancer) History: Reports: None Dermatologic History: Reports: None - Infectious Disease History Infectious Disease History: Reports: C-Difficile - Past Surgical History GI Surgical History: Reports: Appendectomy, Cholecystectomy, Colonoscopy, Other (See Below) Other GI Surgeries/Procedures: partial sigmoidectomy Social & Family History - Family History Family Medical History: Noncontributory Neurological: Reports: Parkinson's Oncologic: Reports: Brain, Liver - Tobacco Use Smoking Status *Q: Never Smoker - Caffeine Use Caffeine Use: Reports: Coffee - Living Situation & Occupation Living situation: Reports: , with Significant Other (from [place] but staying with her daughter in [place]) 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 GENERAL - Review of Systems Review Of Systems: See Below Constitutional: Reports: No Symptoms HEENT: Reports: No Symptoms Respiratory: Reports: No Symptoms Cardiovascular: Reports: No Symptoms Endocrine: Reports: No Symptoms GI/Abdominal: Reports: Abdominal Pain, Diarrhea, Hematemesis, Nausea : Reports: Hematuria Musculoskeletal: Reports: No Symptoms Skin: Reports: No Symptoms Neurological: Reports: No Symptoms Psychiatric: Reports: No Symptoms Hematologic/Lymphatic: Reports: No Symptoms ED EXAM, GENERAL - Physical Exam Exam: See Below Exam Limited By: No Limitations General Appearance: Alert, WD/WN, No Apparent Distress Eye Exam: Bilateral Eye: EOMI, Normal Inspection, PERRL Respiratory/Chest: No Respiratory Distress, Lungs Clear, Normal Breath Sounds, No Accessory Muscle Use, Chest Non-Tender Cardiovascular: Normal Peripheral Pulses, Regular Rate, Rhythm, No Edema, No Gallop, No JVD, No Murmur, No Rub GI/Abdominal: Normal Bowel Sounds, Soft, Guarding, Tender Neurological: Alert, Oriented, CN II-XII Intact, Normal Cognition, Normal Gait, No Motor/Sensory Deficits Course - Vital Signs Last Recorded V/S: Last Vital Signs Temp 35.9 C 04/25/19 10:43 Pulse 62 04/25/19 10:43 Resp 16 04/25/19 10:43 BP 105/57 L 04/25/19 10:43 Pulse Ox 99 04/25/19 10:43 - Orders/Labs/Meds Labs: Laboratory Tests 04/25/19 04/25/19 Range/Units 10:57 10:57 WBC 9.1 (4.0-10.0) x10^3/uL RBC 3.35 L (4.00-5.50) x10^6/uL Hgb 9.6 L (12.0-16.0) g/dL Hct 29.9 L (33.0-47.0) % MCV 89.3 D (78.0-93.0) fL MCH 28.7 (26.0-32.0) pg MCHC 32.1 (32.0-36.0) g/dL RDW Coeff of Brianda 14.0 (10.0-15.0) % Plt Count 394 D (130-400) x10^3/uL Neut % (Auto) 79.7 (50.0-80.0) % Lymph % (Auto) 13.2 L (25.0-50.0) % [place] % (Auto) 5.3 (2.0-11.0) % Eos % (Auto) 1.5 (0.0-4.0) % Baso % (Auto) 0.3 (0.2-1.2) % Sodium 136 (136-145) mmol/L Potassium 3.4 L (3.5-5.1) mmol/L Chloride 98 (98-107) mmol/L Carbon Dioxide 25 (21-32) mmol/L Anion Gap 16.4 (10-20) mmol/L BUN 27 H (7-18) mg/dL Creatinine 1.8 H (0.55-1.02) mg/dL Est Cr Clr Drug Dosing 25.73 mL/min Estimated GFR (MDRD) 30 Glucose 92 (74-106) mg/dL Calcium 8.7 (8.5-10.1) mg/dL Corrected Calcium 9.34 (8.5-10.1) mg/dL Magnesium 2.0 (1.8-2.4) mg/dL Total Bilirubin 0.2 (0.2-1.0) mg/dL AST 14 L (15-37) U/L ALT 25 (14-59) U/L Alkaline Phosphatase 88 (46-116) U/L Total Protein 7.0 (6.4-8.2) g/dL Albumin 3.2 L (3.4-5.0) g/dL Globulin 3.8 Albumin/Globulin Ratio 0.84 Meds: Medications Discontinued Medications Generic Name Dose Route Start Last Admin Trade Name Freq PRN Reason Stop Dose Admin Diphenhydramine HCl 50 mg 04/25/19 10:52 04/25/19 11:02 Benadryl IVPUSH 04/25/19 10:53 50 mg ONETIME ONE Administration Heparin Sodium (Porcine) 500 units 04/25/19 12:16 04/25/19 12:17 Heparin Lock Flush 100 Units/Ml IVPUSH 500 units ASDIRECTED PRN Administration Keep Vein Open Methylprednisolone Sodium Succinate 125 mg 04/25/19 10:54 04/25/19 11:06 Solu-Medrol IVPUSH 04/25/19 10:55 125 mg ONETIME ONE Administration Prochlorperazine Edisylate 10 mg 04/25/19 10:52 04/25/19 11:04 Compazine IV 04/25/19 10:53 10 mg ONETIME ONE Administration Sodium Chloride 10 ml 04/25/19 12:15 04/25/19 12:16 Saline Flush FLUSH 04/25/19 12:16 20 ml ONETIME ONE Administration - Re-Assessments/Exams Free Text/Narrative Re-Assessment/Exam: 04/25/19 11:19 I did review with Dr. Oliva her primary provider. At this time in agreement to control nausea and she can take her home oral dilaudid for pain to reduce her dependence on IV hydromorphine in the ED. Will of course continue to work up and review results before final treatment decisions and diagnoses. 04/25/19 1200 Review of labwork. Grossly normal or within her usual limits. Elevated creatinine, mild low potassium, normal mag, nausea resolved. To take oral dilaudid at home as needed. Departure - Departure Time of Disposition: 12:18 Disposition: Home, Self-Care 01 Condition: Good Clinical Impression: Nausea Abdominal pain Qualifiers: Abdominal location: unspecified location Qualified Code(s): R10.9 - Unspecified abdominal pain - Discharge Information *PRESCRIPTION DRUG MONITORING PROGRAM REVIEWED*: Not Applicable *COPY OF PRESCRIPTION DRUG MONITORING REPORT IN PATIENT CHELSEY: Not Applicable Instructions: Nausea and Vomiting, Adult, [id number] Referrals: Xiomy Oliva MD [Primary Care Provider] - Forms: ED Department Discharge Additional Instructions: Plan 1. Please follow up with Dr. Oliva tomorrow if needed for additional symptom management 2. Treat your abdominal pain with your home oral dilaudid 3. Please continue to return for needed IV infusions as scheduled 4. Please call if you have any additional questions or concerns - Problem List & Annotations (1) Abdominal pain SNOMED Code(s): 68829307 Code(s): R10.9 - UNSPECIFIED ABDOMINAL PAIN Status: Acute Priority: Low Qualifiers: Abdominal location: unspecified location Qualified Code(s): R10.9 - Unspecified abdominal pain (2) Nausea SNOMED Code(s): 372983204 Code(s): R11.0 - NAUSEA Status: Acute Priority: Low - Problem List Review Problem List Initiated/Reviewed/Updated: Yes - Assessment/Plan Assessment:: Nausea Abdominal pain Plan: Plan 1. Please follow up with Dr. Oliva tomorrow if needed for additional symptom management 2. Treat your abdominal pain with your home oral dilaudid 3. Please continue to return for needed IV infusions as scheduled 4. Please call if you have any additional questions or concerns
[2019-04-25 11:24] LABS: ANION GAP 16.4 mmol/L (10-20)
[2019-04-25] MEDS ORDERED: Sodium Chloride 0.9% 10 ML Syringe FLUSH ONE (12:15)
== END 2019-04-25 12:18 | disposition home or self-care (01) ==
LOC: VM.ED 10:39
DX: R10.12 Left upper quadrant pain (principal); R10.31 Right lower quadrant pain; R11.0 Nausea; K21.9 Gastro-esophageal reflux disease without esophagitis; Z88.5 Allergy status to narcotic agent; Z88.0 Allergy status to penicillin; Z79.899 Other long term (current) drug therapy
CPT/HCPCS: 36415; 80053; 83735; 85025; 96374; 96375; 99284-25; J0780; J1200; J1642; J2930; J7120

== ENCOUNTER 2019-05-01 15:35 | Observation (INO) | payer BC, OTHER ==
[2019-05-01] MEDS ORDERED: diphenhydrAMINE 50 MG/ML SDV IVPUSH PRN (16:05)
[2019-05-01] MEDS ORDERED: Lidocaine/Prilocaine 2.5-2.5% Crm 5 GM Tube TOP PRN (16:34)
[2019-05-01] MEDS ORDERED: Menthol/Methyl Salicylate 85 GM Tube TOP PRN (16:34)
[2019-05-01] MEDS ORDERED: Simethicone 80 MG Tab.Chew PO PRN (16:34)
[2019-05-01] MEDS ORDERED: Potassium Chloride Riders 20 MEQ in Premix Bag 1 BAG IV ONE (16:40)
[2019-05-01] MEDS ORDERED: methylPREDNISolone Sodium Succinate 40 MG/1 ML SDV IVPUSH ONE (16:40)
--- NOTE | 2019-05-01 16:49 | PCM.HP ---
H&P History of Present Illness - General Date of Service: 05/01/19 Admit Problem/Dx: Admission Diagnosis/Problem Admission Diagnosis/Problem Dehydration Source of Information: Patient History Limitations: Reports: No Limitations - History of Present Illness Initial Comments - Free Text/Narative: Mrs. Cota is a 44 yo female with PMH as below and history of multiple hospitalizations related to dehydration from recurrent vomiting who presented to clinic today for evaluation of 24 hours of increased nausea and vomiting. She states she has vomited "countless" times today and has not been able to keep any food or liquids down. She was also not able to keep her medications down either. She has been feeling more and more weak over the past 24 hours. She has had an increase in abdominal pain over the past 24 hours as well. Her bowel movements have remained at baseline with having about 10/day that are loose and tinged with blood. She states her symptoms are similar to what she had early last week and those symptoms responded well to compazine, benadryl, and solu-medrol. However, she feels that she is in worse shape today than she was last week and was not surprised to see how her labs looked today. She has been voiding less frequently than usual and in smaller amounts but states that her urine is still clear. She also has had increased joint pains again lately. ROS is otherwise negative. She does note that she has discontinued her vancomycin due to the fact that the pharmacy stated they did not have additional supply on this. She is not sure when she took her last dose but it has been "quite awhile." Lower Abdominal Pain Score (Numeric/FACES): 8 - Related Data Allergies/Adverse Reactions: Allergies Allergy/AdvReac Type Severity Reaction Status Date / Time codeine Allergy Severe Anaphylactic Verified 05/01/19 16:18 Shock Penicillins Allergy Severe Anaphylactic Verified 05/01/19 16:18 Shock propoxyphene Allergy Severe Anaphylactic Verified 05/01/19 16:18 [From Darvocet-N] Shock lactose AdvReac Diarrhea Verified 05/01/19 16:18 metoclopramide [From Reglan] AdvReac Stomach Verified 05/01/19 16:18 Ache morphine AdvReac Headache Verified 05/01/19 16:18 Home Medications: Home Meds Ondansetron HCl [Ondansetron] 8 mg PO TID PRN 05/03/18 [History] Lactobacillus Rhamnosus GG [Culturelle] 1 cap PO DAILY 09/01/18 [History] Amitriptyline [Elavil] 50 mg PO BEDTIME 11/23/18 [History] Gabapentin [Neurontin] 300 mg PO TID 11/23/18 [History] Melatonin 6 mg PO BEDTIME 11/23/18 [History] Omeprazole Magnesium [Prilosec Otc] 40 mg PO DAILY 11/23/18 [History] Promethazine [Phenergan] 25 mg PO TID 11/23/18 [History] Simethicone 80 mg PO QID PRN 11/23/18 [History] traZODone HCl [Trazodone HCl] 50 mg PO BEDTIME 11/23/18 [History] Amylase/Lipase/Protease [Johnna DR 24,000 Unit] 2 cap PO TIDMEALS 02/22/19 [ History] Potassium Chloride 40 meq PO BID 02/22/19 [History] Sertraline [Zoloft] 25 mg PO DAILY 02/22/19 [History] azaTHIOprine [Imuran] 50 mg PO DAILY 02/22/19 [History] Metoclopramide HCl [Reglan] 5 mg PO TID #90 tablet 03/01/19 [Rx] Zinc Oxide [Desitin Creamy Diaper Rash Crm] 1 applic TOP Q2HR PRN 03/16/19 [ History] Dicyclomine HCl [Bentyl] 10 mg PO TID 04/14/19 [History] Famotidine 20 mg PO BEDTIME 04/14/19 [History] HYDROmorphone [Dilaudid] 1 tab PO Q4HR PRN 04/14/19 [History] Lidocaine/Prilocaine [Lidocaine-Prilocaine Cream] 1 applic TOP DAILY PRN [History] Multivitamin with Minerals [Multiple Vitamin] 1 tab PO DAILY 04/14/19 [History] predniSONE [Prednisone] 35 mg PO DAILY 04/14/19 [History] Acetaminophen 625 mg PO TID 05/01/19 [History] Dronabinol [Marinol] 5 mg PO BIDAC 05/01/19 [History] Menthol/Methyl Salicylate [Icy Hot] 1 applic TOP QID PRN 05/01/19 [History] Vancomycin 125 mg PO BID 05/01/19 [History] Past Medical History HEENT History: Reports: None Cardiovascular History: Reports: None Respiratory History: Reports: None Gastrointestinal History: Reports: GERD, Inflammatory Bowel Disease Other Gastrointestinal History: crohn's disease. 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 Musculoskeletal History: Reports: Back Pain, Chronic Neurological History: Reports: None Psychiatric History: Reports: Anxiety Endocrine/Metabolic History: Reports: None Hematologic History: Reports: Anemia Immunologic History: Reports: Immunosuppression Oncologic (Cancer) History: Reports: None Dermatologic History: Reports: None - Infectious Disease History Infectious Disease History: Reports: None - Past Surgical History Head Surgeries/Procedures: Reports: None HEENT Surgical History: Reports: None GI Surgical History: Reports: Appendectomy, Cholecystectomy, Colonoscopy, Other (See Below) Other GI Surgeries/Procedures: partial sigmoidectomy Female Surgical History: Reports: None Oncologic Surgical History: Reports: None Social & Family History - Family History HEENT: Reports: None Cardiac: Reports: None GI: Reports: None OBGYN: Reports: None Neurological: Reports: Parkinson's Psychiatric: Reports: None Endocrine/Metabolic: Reports: None Immunologic: Reports: None Dermatologic: Reports: None Oncologic: Reports: Brain, Liver - Tobacco Use Smoking Status *Q: Never Smoker Second Hand Smoke Exposure: No - Caffeine Use Caffeine Use: Reports: Coffee - Alcohol Use Alcohol Use History: No Alcohol Use in Last Twelve Months: No - Recreational Drug Use Recreational Drug Use: No - Living Situation & Occupation Living situation: Reports: , with Significant Other (from [place] but staying with her daughter in [place]) 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) H&P Review of Systems - Review of Systems: Review Of Systems: See Below General: Reports: No Symptoms HEENT: Reports: No Symptoms Pulmonary: Reports: No Symptoms Cardiovascular: Reports: No Symptoms Gastrointestinal: Reports: Abdominal Pain, Diarrhea, Nausea, Vomiting Genitourinary: Reports: No Symptoms Musculoskeletal: Reports: Joint Pain Skin: Reports: No Symptoms Psychiatric: Reports: No Symptoms Neurological: Reports: No Symptoms Exam - Exam Exam: See Below - Vital Signs Vital Signs: Last Vital Signs Temp 37.1 C 05/01/19 15:47 Pulse 87 05/01/19 15:47 Resp 16 05/01/19 15:47 BP 104/51 L 05/01/19 15:47 Pulse Ox 100 05/01/19 15:47 Weight: 43.227 kg - Exam General: Alert, Oriented, Cooperative HEENT: Conjunctiva Clear, Mucosa Moist & [place], Posterior Pharynx Clear, Pupils Equal, Pupils Reactive Neck: Supple, Trachea Midline. No: Lymphadenopathy, Thyromegaly Lungs: Clear to Auscultation, Normal Respiratory Effort Cardiovascular: Regular Rate, Regular Rhythm, Normal S1, Normal S2 GI/Abdominal Exam: Normal Bowel Sounds, Soft, No Distention, Tender (diffuse tenderness to even light palpation but without any rebound, rigidity, or guarding) Extremities: Non-Tender, No Pedal Edema, Normal Capillary Refill Peripheral Pulses: 2+: Radial (L), Radial (R) Skin: Warm, Dry, Intact *Q Meaningful Use (ADM) - VTE *Q VTE Anticoagulation Contraindications: Med/TX Not Indicated/Need - Problem List (1) Dehydration SNOMED Code(s): 54310715 ICD Code: E86.0 - DEHYDRATION Status: Acute Current Visit: No (2) Renal failure (ARF), acute on chronic SNOMED Code(s): 987183155 ICD Code: N17.9 - ACUTE KIDNEY FAILURE, UNSPECIFIED; N18.9 - CHRONIC KIDNEY DISEASE, UNSPECIFIED Status: Acute Priority: Medium Current Visit: No Qualifiers: Acute renal failure type: unspecified Chronic kidney disease stage: unspecified stage Qualified Code(s): N17.9 - Acute kidney failure, unspecified ; N18.9 - Chronic kidney disease, unspecified (3) Hypokalemia SNOMED Code(s): 47038469 ICD Code: E87.6 - HYPOKALEMIA Status: Acute Priority: Medium Current Visit: No (4) Cyclical vomiting SNOMED Code(s): 56339231 ICD Code: G43.A0 - CYCLICAL VOMITING, NOT INTRACTABLE Status: Acute Current Visit: No Qualifiers: Vomiting Intractability: intractable Nausea presence: with nausea Qualified Code(s): G43.A1 - Cyclical vomiting, intractable (5) Crohns disease SNOMED Code(s): 93586311 ICD Code: K50.90 - CROHN'S DISEASE, UNSPECIFIED, WITHOUT COMPLICATIONS Status: Chronic Current Visit: No Qualifiers: Gastrointestinal tract location: unspecified location Digestive disease complication type: unspecified complication Qualified Code(s): K50.919 - Crohn 's disease, unspecified, with unspecified complications (6) Chronic abdominal pain SNOMED Code(s): 469982959 ICD Code: R10.9 - UNSPECIFIED ABDOMINAL PAIN; G89.29 - OTHER CHRONIC PAIN Status: Chronic Priority: Medium Current Visit: No (7) Severe malnutrition SNOMED Code(s): 05257209 ICD Code: E43 - UNSPECIFIED SEVERE PROTEIN-CALORIE MALNUTRITION Status: Chronic Current Visit: No Problem List Initiated/Reviewed/Updated: Yes Orders Last 24hrs: Active Orders 24 hr Category Date Time Status Admission Status [Patient Status] [ADT] Routine ADT 05/01/19 15:40 Active Notify Provider Vital Signs [RC] ASDIRECTED Care 05/01/19 16:03 Ordered Oxygen Therapy [RC] PRN Care 05/01/19 16:03 Ordered Up With Assistance [RC] ASDIRECTED Care 05/01/19 16:03 Ordered VTE/DVT Education [RC] PER UNIT ROUTINE Care 05/01/19 16:03 Ordered Vital Signs [RC] Q4H Care 05/01/19 16:03 Ordered Regular Diet [DIET] Diet 05/01/19 Dinner Ordered BASIC METABOLIC PANEL,BMP [CHEM] Routine Lab 05/02/19 05:11 Ordered C-REACTIVE PROTEIN [CHEM] Routine Lab 05/02/19 05:11 Ordered CBC WITH AUTO DIFF [HEME] Routine Lab 05/02/19 05:11 Ordered SEDIMENTATION RATE AUTO [HEME] Routine Lab 05/02/19 05:11 Ordered Acetaminophen [Tylenol Extra Strength] Med 05/01/19 20:00 Ordered 625 mg PO TID Amitriptyline [Elavil] Med 05/01/19 20:00 Ordered 50 mg PO BEDTIME Amylase/Lipase/Protease Med 05/01/19 18:00 Ordered 2 cap PO TIDMEALS Dicyclomine [Bentyl] Med 05/01/19 20:00 Ordered 10 mg PO TID Dronabinol [Marinol] Med 05/01/19 17:00 Ordered 5 mg PO BIDAC Famotidine [Pepcid] Med 05/01/19 20:00 Ordered 20 mg PO BEDTIME Gabapentin [Neurontin] Med 05/01/19 20:00 Ordered 300 mg PO TID HYDROmorphone [Dilaudid] Med 05/01/19 16:34 Ordered 2 mg PO Q4HR PRN Lactated Ringers @ 100 MLS/HR(1,000ml) Med 05/01/19 16:15 Ordered Lactated Ringers [Ringers, Lactated] 1,000 ml IV ASDIRECTED Lactobacillus Rhamnosus GG [Culturelle] Med 05/02/19 08:00 Ordered 1 cap PO DAILY Lidocaine/Prilocaine [EMLA Crm] Med 05/01/19 16:34 Ordered 1 applic TOP DAILY PRN Melatonin Med 05/01/19 20:00 Ordered 6 mg PO BEDTIME Menthol/Methyl Salicylate [Icy Hot Cream] Med 05/01/19 16:34 Ordered 1 applic TOP QID PRN Metoclopramide Med 05/01/19 20:00 Ordered 5 mg PO TID Multivitamin with Minerals [Multiple Vitamin] Med 05/02/19 08:00 Ordered 1 tab PO DAILY Omeprazole Magnesium [Prilosec Otc] Med 05/02/19 08:00 Ordered 40 mg PO DAILY Ondansetron Med 05/01/19 16:34 Ordered 8 mg PO TID PRN Potassium Chloride Riders [KCL 20 MEQ in Water 50 ML] Med 05/01/19 16:40 Ordered 20 meq Premix Bag 1 bag IV ONETIME Potassium Chloride [Klor-Con] Med 05/01/19 20:00 Ordered 40 meq PO BID Prochlorperazine [Compazine] Med 05/01/19 16:15 Ordered 10 mg IV Q8H Sertraline [Zoloft] Med 05/02/19 08:00 Ordered 25 mg PO DAILY Simethicone Med 05/01/19 16:34 Ordered 80 mg PO QID PRN Vancomycin Med 05/01/19 20:00 Ordered 125 mg PO BID Zinc Oxide Med 05/01/19 16:34 Ordered 1 applic TOP Q2HR PRN azaTHIOprine [Imuran] Med 05/02/19 08:00 Ordered 50 mg PO DAILY diphenhydrAMINE [Benadryl] Med 05/01/19 16:05 Ordered 25 mg IVPUSH Q8H PRN methylPREDNISolone Sod Succ [Solu-MEDROL] Med 05/01/19 16:40 Once 40 mg IVPUSH ONETIME ONE predniSONE Med 05/02/19 08:00 Ordered 35 mg PO DAILY traZODone Med 05/01/19 20:00 Ordered 50 mg PO BEDTIME Anticoagulation Contraindications VTE [AST] Per Unit Oth 05/01/19 16:03 Ordered Routine Resuscitation Status Routine Resus Stat 05/01/19 16:03 Ordered Medication Orders Acetaminophen (Tylenol Extra Strength) 625 mg PO TID [facility] Amitriptyline HCl (Elavil) 50 mg PO BEDTIME MARY Azathioprine (Imuran) 50 mg PO DAILY MARY Dicyclomine HCl (Bentyl) 10 mg PO TID MARY Diphenhydramine HCl (Benadryl) 25 mg IVPUSH Q8H PRN PRN Reason: Nausea Famotidine (Pepcid) 20 mg PO BEDTIME MARY Gabapentin (Neurontin) 300 mg PO TID MARY Hydromorphone HCl (Dilaudid) 2 mg PO Q4HR PRN PRN Reason: Pain Lactated Ringer's (Ringers, Lactated) 1,000 mls @ 100 mls/hr IV ASDIRECTED MARY Potassium Chloride 20 meq/ (Premix) 50 mls @ 50 mls/hr IV ONETIME ONE Stop: 05/01/19 17:39 Lactobacillus Rhamnosus (Culturelle) 1 cap PO DAILY MARY Lidocaine/Prilocaine (Emla Crm) gm TOP DAILY PRN PRN Reason: Pain Melatonin (Melatonin) 6 mg PO BEDTIME MARY Methyl Salicylate (Icy Hot Cream) gm TOP QID PRN PRN Reason: Pain (mild 1-3) Methylprednisolone Sodium Succinate (Solu-Medrol) 40 mg IVPUSH ONETIME ONE Stop: 05/01/19 16:41 Non-Formulary Medication (Amylase/Lipase/Protease) 2 cap PO TIDMEALS MARY Non-Formulary Medication (Dronabinol [Marinol]) 5 mg PO BIDAC MARY Non-Formulary Medication (Metoclopramide) 5 mg PO TID MARY Non-Formulary Medication (Multivitamin With Minerals [Multiple Vitamin]) 1 tab PO DAILY MARY Non-Formulary Medication (Omeprazole Magnesium [Prilosec Otc]) 40 mg PO DAILY MARY Non-Formulary Medication (Ondansetron) 8 mg PO TID PRN PRN Reason: Nausea Non-Formulary Medication (Zinc Oxide) 1 applic TOP Q2HR PRN PRN Reason: Rash Potassium Chloride (Klor-Con) 40 meq PO BID [facility] Prednisone (Prednisone) 35 mg PO DAILY [facility] Prochlorperazine Edisylate (Compazine) 10 mg IV Q8H MARY Sertraline HCl (Zoloft) 25 mg PO DAILY MARY Simethicone (Simethicone) 80 mg PO QID PRN PRN Reason: Gas Trazodone HCl (Trazodone) 50 mg PO BEDTIME MARY Vancomycin HCl (Vancomycin) 125 mg PO BID MARY Assessment/Plan Comment:: 44 yo female admitted with dehydration and CHARIS secondary to an episode of cyclical vomiting that started yesterday. #1 Dehydration #2 Acute on chronic renal failure #3 Hypokalemia #4 Cyclical vomiting - Rn Clinical Coordinator 2.7 today with potassium 3.1. - Unlikely that she will be able to rehydrate orally or even with daily IV fluids in the ER; therefore, observation admission recommended and she agreed. - Will start IV LR @ 100 cc/hr. - Will do 1 dose of KCl IV and then will continue her home oral supplementation. - Will schedule compazine and do benadryl IV PRN. Will also continue all home antiemetics apart from phenergan. #5 Crohn's disease #6 Chronic abdominal pain #7 Severe malnutrition - Will do a 1 time dose of solu-medrol as well since she was not able to keep down her prednisone today. - Regular diet. - Will also resume her vancomycin as this was intended to be continued for at least 3 months. - Continue other home medications. Patient will be admitted to observation for rehydration and nausea control - hopefully she will require <48 hours of admission to accomplish this but will continue to reassess on a daily basis. Otherwise, see plan as above. No indication for VTE prophylaxis given anticipation for short hospital stay. Code status is full - discussed on admission.
[2019-05-01] MEDS: Prochlorperazine 10 MG/2 ML SDV IV SCH (17:08)
[2019-05-01] MEDS ORDERED: Ondansetron 4 MG Tab.DIS PO PRN (17:17)
[2019-05-01] MEDS: HYDROmorphone 2 MG Tab PO PRN ×2 (17:21→21:37)
[2019-05-01] MEDS: [UNRECOGNIZED DRUG - OTHER] PO SCH ×2 (18:44→18:45)
[2019-05-01] MEDS: DRONABINOL 5 MG PO SCH (18:44)
[2019-05-01] MEDS: Lactated Ringers 1,000 ML IV SCH (19:44)
[2019-05-01] MEDS ORDERED: Metoclopramide 10 MG/2 ML SDV IVPUSH ONE (20:39)
[2019-05-01] MEDS: Potassium Chloride 20 MEQ Packet PO SCH (21:36)
[2019-05-01] MEDS: Famotidine 20 MG Tab PO SCH (21:38)
[2019-05-01] MEDS: traZODone 50 MG Tab PO SCH (21:40)
[2019-05-01] MEDS: Melatonin 3 MG Tab PO SCH (21:40)
[2019-05-01] MEDS: Gabapentin 300 MG Cap PO SCH (21:40)
[2019-05-01] MEDS: Amitriptyline 25 MG Tab PO SCH (21:41)
[2019-05-01] MEDS: Vancomycin 125 MG Cap PO SCH (21:41)
[2019-05-01] MEDS: Dicyclomine 10 MG Cap PO SCH (21:42)
[2019-05-01] MEDS: Metoclopramide 5 MG Tab PO SCH (21:42)
[2019-05-02] MEDS: Prochlorperazine 10 MG/2 ML SDV IV SCH ×2 (00:56→08:35)
[2019-05-02] MEDS: Lactated Ringers 1,000 ML IV SCH (06:10)
[2019-05-02] MEDS: Omeprazole 20 MG Cap.CR PO SCH (06:11)
[2019-05-02] MEDS: DRONABINOL 5 MG PO SCH ×2 (06:11→18:25)
[2019-05-02 07:08] LABS: ANION GAP 12.6 mmol/L (10-20)
[2019-05-02] MEDS: predniSONE 10 MG Tab PO SCH (08:32)
[2019-05-02] MEDS: Vancomycin 125 MG Cap PO SCH ×2 (08:32→19:43)
[2019-05-02] MEDS: Sertraline 25 MG Tab PO SCH (08:33)
[2019-05-02] MEDS: Gabapentin 300 MG Cap PO SCH ×3 (08:33→19:43)
[2019-05-02] MEDS: Multivitamins with Iron/Calcium/Folic Acid/Minerals Tab PO SCH (08:33)
[2019-05-02] MEDS: Lactobacillus Rhamnosus GG (Probiotic) Cap PO SCH (08:33)
[2019-05-02] MEDS: Potassium Chloride 20 MEQ Packet PO SCH ×2 (08:33→19:39)
[2019-05-02] MEDS: Metoclopramide 5 MG Tab PO SCH ×3 (08:33→19:42)
--- NOTE | 2019-05-02 08:50 | PCM.PN ---
- General Info Date of Service: 05/02/19 Subjective Update: 44 yo female hospital day #2 admitted with dehydration secondary to severe nausea and vomiting. Is doing somewhat better this morning. Currently rates her nausea at 2/10. Was able to keep her medications down last night and this morning. Also ate some toast and oatmeal for breakfast. Emesis x2 last evening; none yet today. No change in bowel movements. Abdominal pain still slightly above baseline but is also improved compared to yesterday. Joint pains about the same. - Review of Systems General: Reports: No Symptoms HEENT: Reports: No Symptoms Pulmonary: Reports: No Symptoms Cardiovascular: Reports: No Symptoms Gastrointestinal: Reports: Abdominal Pain, Nausea, Vomiting Genitourinary: Reports: No Symptoms Musculoskeletal: Reports: Joint Pain Skin: Reports: No Symptoms Neurological: Reports: No Symptoms - Patient Data Vitals - Most Recent: Last Vital Signs Temp 36.3 C 05/02/19 06:00 Pulse 65 05/02/19 06:00 Resp 14 05/02/19 06:00 BP 89/53 L 05/02/19 06:00 Pulse Ox 98 05/02/19 06:00 Weight - Most Recent: 43.227 kg I&O - Last 24 Hours: Intake & Output 05/01/19 05/02/19 05/02/19 22:59 06:59 14:59 Intake Total 250 1000 240 Balance 250 1000 240 Lab Results Last 24 Hours: Laboratory Results - last 24 hr 05/02/19 05/02/19 Range/Units 06:21 06:21 WBC 6.9 (4.0-10.0) x10^3/uL RBC 3.07 L (4.00-5.50) x10^6/uL Hgb 8.7 L (12.0-16.0) g/dL Hct 27.4 L (33.0-47.0) % MCV 89.3 (78.0-93.0) fL MCH 28.3 (26.0-32.0) pg MCHC 31.8 L (32.0-36.0) g/dL RDW Coeff of Brianda 13.9 (10.0-15.0) % Plt Count 389 (130-400) x10^3/uL Add Manual Diff Yes Neutrophils % (Manual) 66 (50-80) % Band Neutrophils % 1 (0-6) % Lymphocytes % (Manual) 19 L (25-50) % Atypical Lymphs % 6 H (0) % Monocytes % (Manual) 5 (2-11) % Eosinophils % (Manual) 1 (0-4) % Metamyelocytes % 1 H (0) % Myelocytes % 1 H (0) % ESR 71 H (0-21) mm/hr Sodium 138 (136-145) mmol/L Potassium 3.6 (3.5-5.1) mmol/L Chloride 102 (98-107) mmol/L Carbon Dioxide 27 (21-32) mmol/L Anion Gap 12.6 (10-20) mmol/L BUN 29 H (7-18) mg/dL Creatinine 1.8 H (0.55-1.02) mg/dL Est Cr Clr Drug Dosing 26.65 mL/min Estimated GFR (MDRD) 30 Glucose 102 (74-106) mg/dL Calcium 8.6 (8.5-10.1) mg/dL C-Reactive Protein 1.0 H (<=0.9) mg/dL Med Orders - Current: Current Medications Acetaminophen (Tylenol) 650 mg PO TID [facility] Amitriptyline HCl (Elavil) 50 mg PO BEDTIME [facility] Last Admin: 05/01/19 21:41 Dose: 50 mg Azathioprine (Imuran) 50 mg PO DAILY [facility] Last Admin: 05/02/19 08:33 Dose: 50 mg Dicyclomine HCl (Bentyl) 10 mg PO TID [facility] Last Admin: 05/01/19 21:42 Dose: 10 mg Diphenhydramine HCl (Benadryl) 25 mg IVPUSH Q8H PRN PRN Reason: Nausea Famotidine (Pepcid) 20 mg PO BEDTIME [facility] Last Admin: 05/01/19 21:38 Dose: 20 mg Gabapentin (Neurontin) 300 mg PO TID [facility] Last Admin: 05/02/19 08:33 Dose: 300 mg Hydromorphone HCl (Dilaudid) 2 mg PO Q4HR PRN PRN Reason: Pain Last Admin: 05/01/19 21:37 Dose: 2 mg Lactated Ringer's (Ringers, Lactated) 1,000 mls @ 100 mls/hr IV ASDIRECTED [facility] Last Admin: 05/02/19 06:10 Dose: 100 mls/hr Lactobacillus Rhamnosus (Culturelle) 1 cap PO DAILY [facility] Last Admin: 05/02/19 08:33 Dose: 1 cap Lidocaine/Prilocaine (Emla Crm) 0 gm TOP DAILY PRN PRN Reason: Pain Melatonin (Melatonin) 6 mg PO BEDTIME [facility] Last Admin: 05/01/19 21:40 Dose: 6 mg Methyl Salicylate (Icy Hot Cream) 0 gm TOP QID PRN PRN Reason: Pain (mild 1-3) Metoclopramide HCl (Reglan) 5 mg PO TID [facility] Last Admin: 05/02/19 08:33 Dose: 5 mg Multi-Ingred Cream/Lotion/Oil/Oint (Zinc Oxide) 0 gm TOP Q2H PRN PRN Reason: Rash Multivitamins/Minerals (Thera M Plus) 1 tab PO DAILY [facility] Last Admin: 05/02/19 08:33 Dose: 1 tab Omeprazole (Omeprazole) 40 mg PO DAILY@0700 [facility] Last Admin: 05/02/19 06:11 Dose: 40 mg Ondansetron HCl (Zofran Odt) 8 mg PO TID PRN PRN Reason: Nausea Patient's Own MedicationCreon [id number] Units 2 each PO TIDMEALS [facility] Last Admin: 05/01/19 18:45 Dose: Not Given Patient's Own Medication Dronabinol 5 Mg 1 each PO BIDAC [facility] Last Admin: 05/02/19 06:11 Dose: 1 each Potassium Chloride (Klor-Con) 40 meq PO BID [facility] Last Admin: 05/02/19 08:33 Dose: 40 meq Prednisone (Prednisone) 35 mg PO DAILY [facility] Last Admin: 05/02/19 08:32 Dose: 35 mg Sertraline HCl (Zoloft) 25 mg PO DAILY [facility] Last Admin: 05/02/19 08:33 Dose: 25 mg Simethicone (Simethicone) 80 mg PO QID PRN PRN Reason: Gas Trazodone HCl (Trazodone) 50 mg PO BEDTIME [facility] Last Admin: 05/01/19 21:40 Dose: 50 mg Vancomycin HCl (Vancomycin) 125 mg PO BID [facility] Last Admin: 05/02/19 08:32 Dose: 125 mg Discontinued Medications Potassium Chloride 20 meq/ (Premix) 50 mls @ 25 mls/hr IV ONETIME ONE Stop: 05/01/19 18:39 Last Admin: 05/01/19 17:26 Dose: 25 mls/hr Methylprednisolone Sodium Succinate (Solu-Medrol) 40 mg IVPUSH ONETIME ONE Stop: 05/01/19 16:41 Last Admin: 05/01/19 17:12 Dose: 40 mg Metoclopramide HCl (Reglan) 5 mg IVPUSH ONETIME ONE Stop: 05/01/19 20:40 Last Admin: 05/01/19 21:07 Dose: 5 mg Prochlorperazine Edisylate (Compazine) 10 mg IV Q8H [facility] Last Admin: 05/02/19 08:35 Dose: 10 mg - Exam General: Alert, Cooperative, No Acute Distress HEENT: Mucous Membr. Moist/[place] Neck: Supple, Trachea Midline, No Thyromegaly. No: Lymphadenopathy Lungs: Clear to Auscultation, Normal Respiratory Effort Cardiovascular: Regular Rate, Regular Rhythm, No Murmurs GI/Abdominal Exam: Normal Bowel Sounds, Soft, No Organomegaly, No Distention, No Mass, Tender (diffuse tenderness to palpation but less so than yesterday; no rebound, rigidity, or guarding) Extremities: Non-Tender, No Pedal Edema, Normal Capillary Refill Peripheral Pulses: 2+: Radial (L), Radial (R) Skin: Warm, Dry, Intact - Problem List & Annotations (1) Dehydration SNOMED Code(s): 02073909 Code(s): E86.0 - DEHYDRATION Status: Acute Current Visit: No (2) Renal failure (ARF), acute on chronic SNOMED Code(s): 465439028 Code(s): N17.9 - ACUTE KIDNEY FAILURE, UNSPECIFIED; N18.9 - CHRONIC KIDNEY DISEASE, UNSPECIFIED Status: Acute Priority: Medium Current Visit: No Qualifiers: Acute renal failure type: unspecified Chronic kidney disease stage: unspecified stage Qualified Code(s): N17.9 - Acute kidney failure, unspecified ; N18.9 - Chronic kidney disease, unspecified (3) Hypokalemia SNOMED Code(s): 31778038 Code(s): E87.6 - HYPOKALEMIA Status: Acute Priority: Medium Current Visit: No (4) Cyclical vomiting SNOMED Code(s): 06702174 Code(s): G43.A0 - CYCLICAL VOMITING, NOT INTRACTABLE Status: Acute Current Visit: No Qualifiers: Vomiting Intractability: intractable Nausea presence: with nausea Qualified Code(s): G43.A1 - Cyclical vomiting, intractable (5) Crohns disease SNOMED Code(s): 65850380 Code(s): K50.90 - CROHN'S DISEASE, UNSPECIFIED, WITHOUT COMPLICATIONS Status: Chronic Current Visit: No Qualifiers: Gastrointestinal tract location: unspecified location Digestive disease complication type: unspecified complication Qualified Code(s): K50.919 - Crohn 's disease, unspecified, with unspecified complications (6) Chronic abdominal pain SNOMED Code(s): 225724142 Code(s): R10.9 - UNSPECIFIED ABDOMINAL PAIN; G89.29 - OTHER CHRONIC PAIN Status: Chronic Priority: Medium Current Visit: No (7) Severe malnutrition SNOMED Code(s): 68349672 Code(s): E43 - UNSPECIFIED SEVERE PROTEIN-CALORIE MALNUTRITION Status: Chronic Current Visit: No - Problem List Review Problem List Initiated/Reviewed/Updated: Yes - My Orders Last 24 Hours: My Active Orders 05/01/19 15:40 Admission Status [Patient Status] [ADT] Routine 05/01/19 16:03 Notify Provider Vital Signs [RC] .PRN Oxygen Therapy [RC] .PRN Up With Assistance [RC] 08,20 VTE/DVT Education [RC] .PRN Vital Signs [RC] 06,10,14,18,22,02 Anticoagulation Contraindications VTE [AST] Per Unit Routine Resuscitation Status Routine 05/01/19 16:05 diphenhydrAMINE [Benadryl] 25 mg IVPUSH Q8H PRN 05/01/19 16:15 Lactated Ringers [Ringers, Lactated] 1,000 ml IV ASDIRECTED 05/01/19 16:34 HYDROmorphone [Dilaudid] 2 mg PO Q4HR PRN Lidocaine/Prilocaine [EMLA Crm] 0 gm TOP DAILY PRN Menthol/Methyl Salicylate [Icy Hot Cream] 0 gm TOP QID PRN Simethicone 80 mg PO QID PRN 05/01/19 17:17 Ondansetron [Zofran ODT] 8 mg PO TID PRN 05/01/19 17:30 Zinc Oxide 0 gm TOP Q2H PRN 05/01/19 17:45 Patient's Own Medication [Ptom] 1 each PO BIDAC Patient's Own Medication [Ptom] 2 each PO TIDMEALS 05/01/19 20:00 Acetaminophen [Tylenol] 650 mg PO TID Amitriptyline [Elavil] 50 mg PO BEDTIME Dicyclomine [Bentyl] 10 mg PO TID Famotidine [Pepcid] 20 mg PO BEDTIME Gabapentin [Neurontin] 300 mg PO TID Melatonin 6 mg PO BEDTIME Metoclopramide [Reglan] 5 mg PO TID Potassium Chloride [Klor-Con] 40 meq PO BID Vancomycin 125 mg PO BID traZODone 50 mg PO BEDTIME 05/01/19 Dinner Regular Diet [DIET] 05/02/19 02:31 Central Line Assessment [RC] 05/02/19 07:00 Omeprazole 40 mg PO DAILY@0700 05/02/19 08:00 Lactobacillus Rhamnosus GG [Culturelle] 1 cap PO DAILY Multivitamins w-Iron/Ca/FA/Min [Thera M Plus] 1 tab PO DAILY Sertraline [Zoloft] 25 mg PO DAILY azaTHIOprine [Imuran] 50 mg PO DAILY predniSONE 35 mg PO DAILY 05/02/19 14:00 Prochlorperazine [Compazine] 5 mg PO Q8H - Assessment Assessment:: 44 yo female admitted with dehydration secondary to severe nausea and vomiting. Is doing somewhat better today. Creatinine back to baseline. Rest of labs also improved. - Plan Plan:: #1 Dehydration #2 Acute on chronic renal failure #3 Hypokalemia #4 Cyclical vomiting - [employer] back to recent baseline of 1.8 today with normal potassium. - She will finish this current bag of IV fluids and then will d/c IV fluids. - Continue oral potassium supplementation. - Will continue with scheduled compazine but will switch this to oral. Continue IV benadryl PRN. Will also continue all home antiemetics apart from phenergan. #5 Crohn's disease #6 Chronic abdominal pain #7 Severe malnutrition - Continue prednisone; will only re-dose solu-medrol if she is not able to keep this down. - Regular diet. - Continue vancomycin as well as all other home medications. Patient will remain on observation today - will reassess this afternoon if she feels comfortable with d/c or if she prefers to give it 1 more night. No indication for VTE prophylaxis given anticipation for short hospital stay. Code status is full - discussed on admission.
[2019-05-02] MEDS: [UNRECOGNIZED DRUG - OTHER] PO SCH ×3 (09:44→18:23)
[2019-05-02] MEDS: Dicyclomine 10 MG Cap PO SCH ×3 (09:44→19:44)
[2019-05-02] MEDS: Acetaminophen 325 MG Tab PO SCH ×4 (09:46→19:42)
[2019-05-02] MEDS: Prochlorperazine 5 MG Tab PO SCH ×2 (15:18→21:30)
--- NOTE | 2019-05-02 17:01 | PCM.SN ---
- Free Text/Narrative Note: Nausea remains well controlled. Patient feels tired today. Discussed d/c home vs doing fluids overnight and planning for d/c tomorrow am. She prefers the latter. Orders placed. Will recheck labs in the am.
[2019-05-02] MEDS: Amitriptyline 25 MG Tab PO SCH (19:42)
[2019-05-02] MEDS: Famotidine 20 MG Tab PO SCH (19:43)
[2019-05-02] MEDS: traZODone 50 MG Tab PO SCH (19:43)
[2019-05-02] MEDS: Melatonin 3 MG Tab PO SCH (19:43)
[2019-05-02] MEDS ORDERED: Lactated Ringers 1,000 ML IV SCH (20:00)
[2019-05-02] MEDS: HYDROmorphone 2 MG Tab PO PRN (21:29)
[2019-05-03] MEDS: DRONABINOL 5 MG PO SCH (06:12)
[2019-05-03] MEDS: Prochlorperazine 5 MG Tab PO SCH (06:12)
[2019-05-03] MEDS: Omeprazole 20 MG Cap.CR PO SCH (06:12)
[2019-05-03 06:18] VITALS: BP 97/51
[2019-05-03 07:14] LABS: ANION GAP 9.1 mmol/L (10-20)
--- NOTE | 2019-05-03 08:39 | PCM.DCSUM1 ---
Discharge Summary - Hospital Course Brief History: Mrs. Cota is a 44 yo female who was admitted with dehydration secondary to increased nausea and vomiting over the preceding 24 hour period. - Discharge Data Discharge Date: 05/03/19 Discharge Disposition: Home, Self-Care 01 Condition: Good - Discharge Diagnosis/Problem(s) (1) Dehydration SNOMED Code(s): 64639630 ICD Code: E86.0 - DEHYDRATION Status: Acute Current Visit: No (2) Renal failure (ARF), acute on chronic SNOMED Code(s): 567077738 ICD Code: N17.9 - ACUTE KIDNEY FAILURE, UNSPECIFIED; N18.9 - CHRONIC KIDNEY DISEASE, UNSPECIFIED Status: Acute Priority: Medium Current Visit: No Qualifiers: Acute renal failure type: unspecified Chronic kidney disease stage: unspecified stage Qualified Code(s): N17.9 - Acute kidney failure, unspecified ; N18.9 - Chronic kidney disease, unspecified (3) Hypokalemia SNOMED Code(s): 10593646 ICD Code: E87.6 - HYPOKALEMIA Status: Acute Priority: Medium Current Visit: No (4) Cyclical vomiting SNOMED Code(s): 86188732 ICD Code: G43.A0 - CYCLICAL VOMITING, NOT INTRACTABLE Status: Acute Current Visit: No Qualifiers: Vomiting Intractability: intractable Nausea presence: with nausea Qualified Code(s): G43.A1 - Cyclical vomiting, intractable (5) Crohns disease SNOMED Code(s): 75655186 ICD Code: K50.90 - CROHN'S DISEASE, UNSPECIFIED, WITHOUT COMPLICATIONS Status: Chronic Current Visit: No Qualifiers: Gastrointestinal tract location: unspecified location Digestive disease complication type: unspecified complication Qualified Code(s): K50.919 - Crohn 's disease, unspecified, with unspecified complications (6) Chronic abdominal pain SNOMED Code(s): 499664813 ICD Code: R10.9 - UNSPECIFIED ABDOMINAL PAIN; G89.29 - OTHER CHRONIC PAIN Status: Chronic Priority: Medium Current Visit: No (7) Severe malnutrition SNOMED Code(s): 32549972 ICD Code: E43 - UNSPECIFIED SEVERE PROTEIN-CALORIE MALNUTRITION Status: Chronic Current Visit: No - Patient Summary/Data Operative Procedure(s) Performed: none Complications: none Consults: none Labs Pending at D/C: none Recommended Follow-up Testing/Procedures: none Planned Operative Procedure(s) after DC: none Hospital Course: Patient was admitted and given IV fluids as well as a 1 time dose of IV solu- medrol. Her home medications were continued with the exception of phenergan, which was replaced with compazine (initially IV and then to PO). Her nausea improved significantly and she was able to tolerate PO's without vomiting for 24 hours prior to discharge. She will be dismissed home today to follow-up in clinic tomorrow. She will also have her usual lab and IV fluids tomorrow as well. - Patient Instructions Diet: Usual Diet as Tolerated Activity: As Tolerated Showering/Bathing: May Shower Notify Provider of: Fever, Increased Pain, Nausea and/or Vomiting - Discharge Plan *PRESCRIPTION DRUG MONITORING PROGRAM REVIEWED*: No *COPY OF PRESCRIPTION DRUG MONITORING REPORT IN PATIENT CHELSEY: No Prescriptions/Med Rec: Prochlorperazine [Compazine] 5 mg PO Q8H #90 tablet Home Medications: Home Meds Lactobacillus Rhamnosus GG [Culturelle] 1 cap PO DAILY 09/01/18 [History] Amitriptyline [Elavil] 50 mg PO BEDTIME 11/23/18 [History] Gabapentin [Neurontin] 300 mg PO TID 11/23/18 [History] Melatonin 6 mg PO BEDTIME 11/23/18 [History] Omeprazole Magnesium [Prilosec Otc] 40 mg PO DAILY 11/23/18 [History] Simethicone 80 mg PO QID PRN 11/23/18 [History] traZODone HCl [Trazodone HCl] 50 mg PO BEDTIME 11/23/18 [History] Amylase/Lipase/Protease [Creon DR 24,000 Unit] 2 cap PO TIDMEALS 02/22/19 [ History] Potassium Chloride 40 meq PO BID 02/22/19 [History] Sertraline [Zoloft] 25 mg PO DAILY 02/22/19 [History] azaTHIOprine [Imuran] 50 mg PO DAILY 02/22/19 [History] Metoclopramide HCl [Reglan] 5 mg PO TID #90 tablet 03/01/19 [Rx] Zinc Oxide [Desitin Creamy Diaper Rash Crm] 1 applic TOP Q2HR PRN 03/16/19 [ History] Dicyclomine HCl [Bentyl] 10 mg PO TID 04/14/19 [History] Famotidine 20 mg PO BEDTIME 04/14/19 [History] HYDROmorphone [Dilaudid] 2 mg PO Q4HR PRN 04/14/19 [History] Lidocaine/Prilocaine [Lidocaine-Prilocaine Cream] 1 applic TOP ASDIRECTED PRN [History] predniSONE [Prednisone] 35 mg PO DAILY 04/14/19 [History] Acetaminophen 625 mg PO TID 05/01/19 [History] Dronabinol [Marinol] 5 mg PO BIDAC 05/01/19 [History] Menthol/Methyl Salicylate [Icy Hot] 1 applic TOP QID PRN 05/01/19 [History] Vancomycin 125 mg PO BID 05/01/19 [History] Folic Acid/Multivit-Min/Lutein [Multi-Vitamin Gummies] 1 tab PO DAILY 05/02/19 [ History] Hydrocortisone [Anusol-HC] 1 applic RECTAL QID PRN 05/02/19 [History] Ondansetron [Ondansetron ODT] 8 mg PO TID 05/02/19 [History] Prochlorperazine [Compazine] 5 mg PO Q8H #90 tablet 05/03/19 [Rx] - Discharge Summary/Plan Comment DC Time >30 min.: No - General Info Date of Service: 05/03/19 Subjective Update: Patient is feeling better this morning. Still tired but not as bad as yesterday. Abdominal pain and nausea persist but are much better than admission. No vomiting since the night of admission. - Review of Systems General: Reports: No Symptoms HEENT: Reports: No Symptoms Pulmonary: Reports: No Symptoms Cardiovascular: Reports: No Symptoms Gastrointestinal: Reports: No Symptoms Genitourinary: Reports: No Symptoms Musculoskeletal: Reports: No Symptoms Skin: Reports: No Symptoms Neurological: Reports: No Symptoms Psychiatric: Reports: No Symptoms - Patient Data Vitals - Most Recent: Last Vital Signs Temp 36.8 C 05/03/19 06:00 Pulse 83 05/03/19 06:00 Resp 18 05/03/19 06:00 BP 97/51 L 05/03/19 06:00 Pulse Ox 99 05/03/19 06:00 Weight - Most Recent: 43.227 kg I&O - Last 24 hours: Intake & Output 05/02/19 05/03/19 05/03/19 22:59 06:59 14:59 Intake Total 3120 1350 180 Balance 3120 1350 180 Lab Results - Last 24 hrs: Laboratory Results - last 24 hr 05/03/19 05/03/19 Range/Units 06:25 06:25 WBC 7.1 (4.0-10.0) x10^3/uL RBC 2.81 L (4.00-5.50) x10^6/uL Hgb 7.9 L (12.0-16.0) g/dL Hct 26.0 L (33.0-47.0) % MCV 92.5 D (78.0-93.0) fL MCH 28.1 (26.0-32.0) pg MCHC 30.4 L (32.0-36.0) g/dL RDW Coeff of Brianda 14.1 (10.0-15.0) % Plt Count 352 (130-400) x10^3/uL Neut % (Auto) 69.1 (50.0-80.0) % Lymph % (Auto) 20.6 L (25.0-50.0) % [place] % (Auto) 9.4 (2.0-11.0) % Eos % (Auto) 0.6 (0.0-4.0) % Baso % (Auto) 0.3 (0.2-1.2) % ESR 65 H (0-21) mm/hr Sodium 140 (136-145) mmol/L Potassium 4.1 (3.5-5.1) mmol/L Chloride 106 (98-107) mmol/L Carbon Dioxide 29 (21-32) mmol/L Anion Gap 9.1 L (10-20) mmol/L BUN 21 H (7-18) mg/dL Creatinine 1.4 H (0.55-1.02) mg/dL Est Cr Clr Drug Dosing 34.26 mL/min Estimated GFR (MDRD) 40 Glucose 86 (74-106) mg/dL Calcium 8.8 (8.5-10.1) mg/dL C-Reactive Protein 0.5 (<=0.9) mg/dL Med Orders - Current: Current Medications Acetaminophen (Tylenol) 650 mg PO TID [facility] Last Admin: 05/02/19 19:42 Dose: 650 mg Amitriptyline HCl (Elavil) 50 mg PO BEDTIME [facility] Last Admin: 05/02/19 19:42 Dose: 50 mg Azathioprine (Imuran) 50 mg PO DAILY [facility] Last Admin: 05/02/19 08:33 Dose: 50 mg Dicyclomine HCl (Bentyl) 10 mg PO TID [facility] Last Admin: 05/02/19 19:44 Dose: 10 mg Diphenhydramine HCl (Benadryl) 25 mg IVPUSH Q8H PRN PRN Reason: Nausea Famotidine (Pepcid) 20 mg PO BEDTIME [facility] Last Admin: 05/02/19 19:43 Dose: 20 mg Gabapentin (Neurontin) 300 mg PO TID [facility] Last Admin: 05/02/19 19:43 Dose: 300 mg Hydromorphone HCl (Dilaudid) 2 mg PO Q4HR PRN PRN Reason: Pain Last Admin: 05/02/19 21:29 Dose: 2 mg Lactobacillus Rhamnosus (Culturelle) 1 cap PO DAILY [facility] Last Admin: 05/02/19 08:33 Dose: 1 cap Lidocaine/Prilocaine (Emla Crm) 0 gm TOP DAILY PRN PRN Reason: Pain Melatonin (Melatonin) 6 mg PO BEDTIME [facility] Last Admin: 05/02/19 19:43 Dose: 6 mg Methyl Salicylate (Icy Hot Cream) 0 gm TOP QID PRN PRN Reason: Pain (mild 1-3) Metoclopramide HCl (Reglan) 5 mg PO TID [facility] Last Admin: 05/02/19 19:42 Dose: 5 mg Multi-Ingred Cream/Lotion/Oil/Oint (Zinc Oxide) 0 gm TOP Q2H PRN PRN Reason: Rash Multivitamins/Minerals (Thera M Plus) 1 tab PO DAILY [facility] Last Admin: 05/02/19 08:33 Dose: 1 tab Omeprazole (Omeprazole) 40 mg PO DAILY@0700 [facility] Last Admin: 05/03/19 06:12 Dose: 40 mg Ondansetron HCl (Zofran Odt) 8 mg PO TID PRN PRN Reason: Nausea Own Med: Creon ([id number] Units) 2 each PO TIDMEALS [facility] Last Admin: 05/02/19 18:23 Dose: 2 each Patient's Own Medication Dronabinol 5 Mg 1 each PO BIDAC [facility] Last Admin: 05/03/19 06:12 Dose: 1 each Potassium Chloride (Klor-Con) 40 meq PO BID [facility] Last Admin: 05/02/19 19:39 Dose: 40 meq Prednisone (Prednisone) 35 mg PO DAILY [facility] Last Admin: 05/02/19 08:32 Dose: 35 mg Prochlorperazine Maleate (Compazine) 5 mg PO Q8H [facility] Last Admin: 05/03/19 06:12 Dose: 5 mg Sertraline HCl (Zoloft) 25 mg PO DAILY [facility] Last Admin: 05/02/19 08:33 Dose: 25 mg Simethicone (Simethicone) 80 mg PO QID PRN PRN Reason: Gas Trazodone HCl (Trazodone) 50 mg PO BEDTIME [facility] Last Admin: 05/02/19 19:43 Dose: 50 mg Vancomycin HCl (Vancomycin) 125 mg PO BID [facility] Last Admin: 05/02/19 19:43 Dose: 125 mg Discontinued Medications Lactated Ringer's (Ringers, Lactated) 1,000 mls @ 100 mls/hr IV ASDIRECTED [facility] Last Admin: 05/02/19 06:10 Dose: 100 mls/hr Potassium Chloride 20 meq/ (Premix) 50 mls @ 25 mls/hr IV ONETIME ONE Stop: 05/01/19 18:39 Last Admin: 05/01/19 17:26 Dose: 25 mls/hr Lactated Ringer's (Ringers, Lactated) 1,000 mls @ 100 mls/hr IV ASDIRECTED [facility] Stop: 05/03/19 06:01 Last Admin: 05/02/19 19:36 Dose: 100 mls/hr Methylprednisolone Sodium Succinate (Solu-Medrol) 40 mg IVPUSH ONETIME ONE Stop: 05/01/19 16:41 Last Admin: 05/01/19 17:12 Dose: 40 mg Metoclopramide HCl (Reglan) 5 mg IVPUSH ONETIME ONE Stop: 05/01/19 20:40 Last Admin: 05/01/19 21:07 Dose: 5 mg Prochlorperazine Edisylate (Compazine) 10 mg IV Q8H [facility] Last Admin: 05/02/19 08:35 Dose: 10 mg - Exam General: Reports: Alert, Cooperative, No Acute Distress HEENT: Reports: Pupils Equal, Pupils Reactive, Mucous Membr. Moist/[place] Neck: Reports: Supple, Trachea Midline, No Thyromegaly. Denies: Lymphadenopathy Lungs: Reports: Clear to Auscultation, Normal Respiratory Effort Cardiovascular: Reports: Regular Rate, Regular Rhythm, No Murmurs GI/Abdominal Exam: Normal Bowel Sounds, Soft, No Organomegaly, No Distention, No Mass, Tender (diffusely but greatest in the RLQ; no rebound, rigidity, or guarding) Extremities: Non-Tender, No Pedal Edema, Normal Capillary Refill Skin: Reports: Warm, Dry, Intact *Q Meaningful Use (DIS) - VTE *Q VTE Anticoagulation Contraindications: Med/TX Not Indicated/Need
[2019-05-03] MEDS: predniSONE 10 MG Tab PO SCH (08:54)
[2019-05-03] MEDS: Acetaminophen 325 MG Tab PO SCH (08:54)
[2019-05-03] MEDS: Lactobacillus Rhamnosus GG (Probiotic) Cap PO SCH (08:54)
[2019-05-03] MEDS: Multivitamins with Iron/Calcium/Folic Acid/Minerals Tab PO SCH (08:54)
[2019-05-03] MEDS: Gabapentin 300 MG Cap PO SCH (08:55)
[2019-05-03] MEDS: Potassium Chloride 20 MEQ Packet PO SCH (08:55)
[2019-05-03] MEDS: Metoclopramide 5 MG Tab PO SCH (08:55)
[2019-05-03] MEDS: Dicyclomine 10 MG Cap PO SCH (08:55)
[2019-05-03] MEDS: Vancomycin 125 MG Cap PO SCH (08:55)
[2019-05-03] MEDS: Sertraline 25 MG Tab PO SCH (08:55)
[2019-05-03] MEDS: [UNRECOGNIZED DRUG - OTHER] PO SCH (08:56)
[2019-05-03] MEDS ORDERED: Heparin Sodium 100 Units/ML 3 ML Syringe ONE (09:13)
[2019-05-03] MEDS ORDERED: Heparin Sodium 100 Units/ML 3 ML Syringe IVPUSH PRN (09:43)
== END 2019-05-03 09:25 | disposition home or self-care (01) ==
LOC: VM.MS 15:35
PROVIDERS: ADMIT Family Medicine; ATTEND Family Medicine
DX: E86.0 Dehydration (principal); N17.9 Acute kidney failure, unspecified; N18.9 Chronic kidney disease, unspecified; G43.A0 Cyclical vomiting, in migraine, not intractable; E87.6 Hypokalemia; E43 Unspecified severe protein-calorie malnutrition; K50.919 Crohn's disease, unspecified, with unspecified complications; R10.9 Unspecified abdominal pain; Z88.0 Allergy status to penicillin; Z88.5 Allergy status to narcotic agent; Z88.8 Allergy status to other drugs, medicaments and biological substances; Z79.52 Long term (current) use of systemic steroids; Z79.899 Other long term (current) drug therapy
CPT/HCPCS: 36415; 80048; 85025; 85652; 86140; 96361; 96365; 96366; 96375; 96376; A4217; A9270-GY; G0378; G0379; J0780; J2765; J2920; J3480; J7120; J7500; Q0164

== ENCOUNTER 2019-05-08 09:36 | Emergency (ER) | payer BC, OTHER ==
[2019-05-08] MEDS ORDERED: Morphine 4 MG/ML Syringe IVPUSH ONE (09:50)
[2019-05-08] MEDS ORDERED: Prochlorperazine 10 MG/2 ML SDV IV ONE (09:50)
[2019-05-08] MEDS ORDERED: Sodium Chloride 0.9% 10 ML Syringe FLUSH PRN (09:50)
[2019-05-08] MEDS ORDERED: diphenhydrAMINE 50 MG/ML SDV IVPUSH ONE (09:51)
[2019-05-08] MEDS ORDERED: Lactated Ringers 1,000 ML IV ONE (09:55)
[2019-05-08 10:33] LABS: CHLORIDE,CL 99 mmol/L (98-107); SODIUM,NA 135 mmol/L (136-145)
[2019-05-08 10:44] LABS: ANION GAP 16.6 mmol/L (10-20)
--- NOTE | 2019-05-08 10:55 | EDM.PDOC ---
ED HPI GENERAL MEDICAL PROBLEM - General Chief Complaint: Abdominal Pain Time Seen by Provider: 05/08/19 10:47 Source of Information: Reports: Patient History Limitations: Reports: No Limitations - History of Present Illness INITIAL COMMENTS - FREE TEXT/NARRATIVE: Pt. presents to ER with worsening abdominal pain. Pt. states that she has been feeling poorly for several days. Pt. has a history of Crohn's disease and cyclical vomiting. Pt. states that she has been vomiting for the past several days. Daughter states that the patient was unable to get dressed without assistance. She complains of fever. She complains of diffuse myalgias and arthralgias. She continues to have bloody stools; rosa bleeding last week, now just occasional blood clots. Pt. has been getting IV fluids every day here in ER. Nursing staff states that she was fatigued and did not appear well during her appointment Wednesday and Wednesday. She was admitted to our facility for Crohn's flare-up from May 01 to May 03 . She was seen in the clinic on the . Pt. denies any chest pain or shortness of breath. No rashes. She states that her abdominal discomfort is diffuse in nature. Onset: Today Onset Date: 05/05/19 Abdominal Pain Score (Numeric/FACES): 9 - Related Data Allergies Allergy/AdvReac Type Severity Reaction Status Date / Time codeine Allergy Severe Anaphylactic Verified 05/08/19 11:00 Shock Penicillins Allergy Severe Anaphylactic Verified 05/08/19 11:00 Shock propoxyphene Allergy Severe Anaphylactic Verified 05/08/19 11:00 [From Darvocet-N] Shock lactose AdvReac Diarrhea Verified 05/08/19 11:00 metoclopramide [From Reglan] AdvReac Stomach Verified 05/08/19 11:00 Ache morphine AdvReac Headache Verified 05/08/19 11:00 Home Meds: Home Meds Lactobacillus Rhamnosus GG [Culturelle] 1 cap PO DAILY 09/01/18 [History] Amitriptyline [Elavil] 50 mg PO BEDTIME 11/23/18 [History] Gabapentin [Neurontin] 300 mg PO TID 11/23/18 [History] Melatonin 6 mg PO BEDTIME 11/23/18 [History] Omeprazole Magnesium [Prilosec Otc] 40 mg PO DAILY 11/23/18 [History] Simethicone 80 mg PO QID PRN 11/23/18 [History] traZODone HCl [Trazodone HCl] 50 mg PO BEDTIME 11/23/18 [History] Amylase/Lipase/Protease [Johnna DR 24,000 Unit] 2 cap PO TIDMEALS 02/22/19 [ History] Potassium Chloride 40 meq PO BID 02/22/19 [History] Sertraline [Zoloft] 25 mg PO DAILY 02/22/19 [History] azaTHIOprine [Imuran] 50 mg PO DAILY 02/22/19 [History] Metoclopramide HCl [Reglan] 5 mg PO TID #90 tablet 03/01/19 [Rx] Zinc Oxide [Desitin Creamy Diaper Rash Crm] 1 applic TOP Q2HR PRN 03/16/19 [ History] Dicyclomine HCl [Bentyl] 10 mg PO TID 04/14/19 [History] Famotidine 20 mg PO BEDTIME 04/14/19 [History] HYDROmorphone [Dilaudid] 2 mg PO Q4HR PRN 04/14/19 [History] Lidocaine/Prilocaine [Lidocaine-Prilocaine Cream] 1 applic TOP ASDIRECTED PRN [History] predniSONE [Prednisone] 35 mg PO DAILY 04/14/19 [History] Acetaminophen 625 mg PO TID 05/01/19 [History] Dronabinol [Marinol] 5 mg PO BIDAC 05/01/19 [History] Menthol/Methyl Salicylate [Icy Hot] 1 applic TOP QID PRN 05/01/19 [History] Vancomycin 125 mg PO BID 05/01/19 [History] Folic Acid/Multivit-Min/Lutein [Multi-Vitamin Gummies] 1 tab PO DAILY 05/02/19 [ History] Hydrocortisone [Anusol-HC] 1 applic RECTAL QID PRN 05/02/19 [History] Ondansetron [Ondansetron ODT] 8 mg PO TID 05/02/19 [History] Prochlorperazine [Compazine] 5 mg PO Q8H #90 tablet 05/03/19 [Rx] Past Medical History HEENT History: Reports: None Cardiovascular History: Reports: None Respiratory History: Reports: None Gastrointestinal History: Reports: GERD, Inflammatory Bowel Disease Other Gastrointestinal History: crohn's disease. colitis Genitourinary History: Reports: Acute Renal Failure, Chronic Renal Insuffiency [employer] QU[employer] History: Reports: None Musculoskeletal History: Reports: Back Pain, Chronic Neurological History: Reports: None Psychiatric History: Reports: Anxiety Endocrine/Metabolic History: Reports: None Hematologic History: Reports: Anemia Immunologic History: Reports: Immunosuppression Oncologic (Cancer) History: Reports: None Dermatologic History: Reports: None - Infectious Disease History Infectious Disease History: Reports: None - Past Surgical History Head Surgeries/Procedures: Reports: None HEENT Surgical History: Reports: None GI Surgical History: Reports: Appendectomy, Cholecystectomy, Colonoscopy, Other (See Below) Other GI Surgeries/Procedures: partial sigmoidectomy Female Surgical History: Reports: None Oncologic Surgical History: Reports: None Social & Family History - Family History Family Medical History: Noncontributory HEENT: Reports: None Cardiac: Reports: None GI: Reports: None OBGYN: Reports: None Neurological: Reports: Parkinson's Psychiatric: Reports: None Endocrine/Metabolic: Reports: None Immunologic: Reports: None Dermatologic: Reports: None Oncologic: Reports: Brain, Liver - Caffeine Use Caffeine Use: Reports: Coffee - Living Situation & Occupation Living situation: Reports: , with Significant Other (from [place] but staying with her daughter in [place]) 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 GENERAL - Review of Systems Review Of Systems: See Below Constitutional: Reports: Malaise, Weakness, Fatigue HEENT: Reports: No Symptoms Respiratory: Reports: No Symptoms Cardiovascular: Reports: No Symptoms Endocrine: Reports: No Symptoms GI/Abdominal: Reports: Abdominal Pain, Bloody Stool, Diarrhea, Decreased Appetite, Hematochezia : Reports: No Symptoms Musculoskeletal: Reports: No Symptoms Skin: Reports: No Symptoms Neurological: Reports: No Symptoms Psychiatric: Reports: No Symptoms Hematologic/Lymphatic: Reports: No Symptoms Immunologic: Reports: No Symptoms ED EXAM, GENERAL - Physical Exam Exam: See Below Exam Limited By: No Limitations General Appearance: Alert, WD/WN, No Apparent Distress Head: Atraumatic, Normocephalic Neck: Normal Inspection, Supple, Non-Tender, Full Range of Motion Respiratory/Chest: No Respiratory Distress, Lungs Clear, Normal Breath Sounds, No Accessory Muscle Use, Chest Non-Tender Cardiovascular: Normal Peripheral Pulses, Regular Rate, Rhythm, No Edema, No JVD , No Murmur GI/Abdominal: Normal Bowel Sounds, Soft, Non-Tender, No Organomegaly, No Distention, No Mass (Female) Exam: Deferred Rectal (Female) Exam: Deferred Back Exam: Normal Inspection, Full Range of Motion Extremities: Normal Inspection, Normal Range of Motion, Normal Capillary Refill Neurological: Alert, Oriented, CN II-XII Intact, Normal Cognition, No Motor/ Sensory Deficits Psychiatric: Anxious, Tearful Skin Exam: Warm, Dry, Pallor Course - Vital Signs Last Recorded V/S: Last Vital Signs Temp 38.0 C 05/08/19 09:40 Pulse 111 H 05/08/19 09:40 Resp 16 05/08/19 09:40 BP 100/46 L 05/08/19 09:40 Pulse Ox 100 05/08/19 09:40 - Orders/Labs/Meds Orders: Active Orders 24 hr Category Date Time Status CULTURE BLOOD [BC] Stat Lab 05/08/19 10:00 Received CULTURE BLOOD [BC] Stat Lab 05/08/19 10:05 Results Sodium Chloride 0.9% [Saline Flush] Med 05/08/19 09:50 Active 10 ml FLUSH ASDIRECTED PRN Blood Culture x2 Reflex Set [OM.PC] Stat Oth 05/08/19 09:49 Ordered Peripheral IV Insertion Adult [OM.PC] Routine Oth 05/08/19 09:50 Ordered Medication Orders Sodium Chloride (Saline Flush) 10 ml FLUSH ASDIRECTED PRN PRN Reason: Keep Vein Open Labs: Laboratory Tests 05/08/19 05/08/19 05/08/19 Range/Units 09:47 09:47 09:47 WBC 20.9 H* (4.0-10.0) x10^3/uL RBC 3.94 L (4.00-5.50) x10^6/uL Hgb 11.2 L (12.0-16.0) g/dL Hct 35.3 (33.0-47.0) % MCV 89.6 (78.0-93.0) fL MCH 28.4 (26.0-32.0) pg MCHC 31.7 L (32.0-36.0) g/dL RDW Coeff of Brianda 14.9 (10.0-15.0) % Plt Count 579 H (130-400) x10^3/uL Add Manual Diff Yes Neutrophils % (Manual) 82 H (50-80) % Band Neutrophils % 16 H (0-6) % Lymphocytes % (Manual) 2 L (25-50) % Platelet Estimate Increased H PT 10.0 (10.0-12.8) SEC INR 0.9 L (2.0-3.5) Sodium 135 L (136-145) mmol/L Potassium 3.6 (3.5-5.1) mmol/L Chloride 99 (98-107) mmol/L Carbon Dioxide 23 (21-32) mmol/L Anion Gap 16.6 (10-20) mmol/L BUN 40 H (7-18) mg/dL Creatinine 1.8 H (0.55-1.02) mg/dL Est Cr Clr Drug Dosing TNP Estimated GFR (MDRD) 30 Glucose 88 (74-106) mg/dL Lactic Acid (0.4-2.0) mmol/L Calcium 9.3 (8.5-10.1) mg/dL Corrected Calcium 9.78 (8.5-10.1) mg/dL Phosphorus 3.7 (2.6-4.7) mg/dL Magnesium 2.1 (1.8-2.4) mg/dL Total Bilirubin 0.5 (0.2-1.0) mg/dL AST 17 (15-37) U/L ALT 27 (14-59) U/L Alkaline Phosphatase 89 (46-116) U/L C-Reactive Protein 7.1 H (<=0.9) mg/dL Total Protein 8.2 (6.4-8.2) g/dL Albumin 3.4 (3.4-5.0) g/dL Globulin 4.8 Albumin/Globulin Ratio 0.71 Amylase 86 (25-115) U/L 05/08/19 Range/Units 09:47 WBC (4.0-10.0) x10^3/uL RBC (4.00-5.50) x10^6/uL Hgb (12.0-16.0) g/dL Hct (33.0-47.0) % MCV (78.0-93.0) fL MCH (26.0-32.0) pg MCHC (32.0-36.0) g/dL RDW Coeff of Brianda (10.0-15.0) % Plt Count (130-400) x10^3/uL Add Manual Diff Neutrophils % (Manual) (50-80) % Band Neutrophils % (0-6) % Lymphocytes % (Manual) (25-50) % Platelet Estimate PT (10.0-12.8) SEC INR (2.0-3.5) Sodium (136-145) mmol/L Potassium (3.5-5.1) mmol/L Chloride (98-107) mmol/L Carbon Dioxide (21-32) mmol/L Anion Gap (10-20) mmol/L BUN (7-18) mg/dL Creatinine (0.55-1.02) mg/dL Est Cr Clr Drug Dosing Estimated GFR (MDRD) Glucose (74-106) mg/dL Lactic Acid 1.6 (0.4-2.0) mmol/L Calcium (8.5-10.1) mg/dL Corrected Calcium (8.5-10.1) mg/dL Phosphorus (2.6-4.7) mg/dL Magnesium (1.8-2.4) mg/dL Total Bilirubin (0.2-1.0) mg/dL AST (15-37) U/L ALT (14-59) U/L Alkaline Phosphatase (46-116) U/L C-Reactive Protein (<=0.9) mg/dL Total Protein (6.4-8.2) g/dL Albumin (3.4-5.0) g/dL Globulin Albumin/Globulin Ratio Amylase (25-115) U/L Meds: Medications Generic Name Dose Route Start Last Admin Trade Name Freq PRN Reason Stop Dose Admin Sodium Chloride 10 ml 05/08/19 09:50 Saline Flush FLUSH ASDIRECTED PRN Keep Vein Open Discontinued Medications Generic Name Dose Route Start Last Admin Trade Name Freq PRN Reason Stop Dose Admin Diphenhydramine HCl 50 mg 05/08/19 09:51 05/08/19 10:03 Benadryl IVPUSH 05/08/19 09:52 50 mg ONETIME ONE Administration Hydromorphone HCl 1 mg 05/08/19 11:52 05/08/19 12:10 Dilaudid IVPUSH 05/08/19 11:53 1 mg ONETIME ONE Administration Lactated Ringer's 1,000 mls @ 500 mls/hr 05/08/19 09:55 05/08/19 09:55 Ringers, Lactated IV 05/08/19 11:54 500 mls/hr ONETIME ONE Administration Morphine Sulfate 4 mg 05/08/19 09:50 05/08/19 10:06 Morphine IVPUSH 05/08/19 09:51 4 mg ONETIME ONE Administration Prochlorperazine Edisylate 5 mg 05/08/19 09:50 05/08/19 10:08 Compazine IV 05/08/19 09:51 5 mg ONETIME ONE Administration - Radiology Interpretation Free Text/Narrative:: Non-contrast CT abdomen and pelvis was obtained. No obvious source for elevated WBCs was found. No abscess noted. There was diffuse moderate bowel distention noted. Departure - Departure Time of Disposition: 12:12 Disposition: DC/Tfer to [facility] 02 Clinical Impression: Crohn's colitis Acute Crohn's disease Qualifiers: Digestive disease complication type: with rectal bleeding Qualified Code(s): K50.911 - Crohn's disease, unspecified, with rectal bleeding - Discharge Information Referrals: Nandini Michael DO [Primary Care Provider] - Forms: ED Department Discharge - Problem List Review Problem List Initiated/Reviewed/Updated: Yes - My Orders Last 24 Hours: My Active Orders 05/08/19 09:49 Blood Culture x2 Reflex Set [OM.PC] Stat 05/08/19 09:50 Sodium Chloride 0.9% [Saline Flush] 10 ml FLUSH ASDIRECTED PRN Peripheral IV Insertion Adult [OM.PC] Routine 05/08/19 10:00 CULTURE BLOOD [BC] Stat 05/08/19 10:05 CULTURE BLOOD [BC] Stat - Assessment/Plan Last 24 Hours: My Active Orders 05/08/19 09:49 Blood Culture x2 Reflex Set [OM.PC] Stat 05/08/19 09:50 Sodium Chloride 0.9% [Saline Flush] 10 ml FLUSH ASDIRECTED PRN Peripheral IV Insertion Adult [OM.PC] Routine 05/08/19 10:00 CULTURE BLOOD [BC] Stat 05/08/19 10:05 CULTURE BLOOD [BC] Stat Plan: Pt. will be transferred to [facility] in [place]. Accepting hospitalist is Dr. Smith. Pt. will be transported via [facility] ground ambulance. No antibiotics were started as the patient does not have any obvious source of infection. Pt. was given IV LR. Pain was controlled with IV morphine and dilaudid. Nausea was controlled with compazine and benadryl.
--- NOTE | 2019-05-08 11:44 | CT ---
[id number] CT/CT Abdomen Pelvis WO IV Exam: CT Abdomen Pelvis WO IV Clinical Data: ABDOMINAL PAIN. ELEVATED WHITE BLOOD CELL COUNT DECREASED RENAL FUNCTION. CROHN'S DISEASE. COMPARISON: CORRELATION IS MADE WITH THE EXAM OF APRIL 14, 2019 FINDINGS: A percutaneous gastrojejunostomy tube is seen. The liver and spleen show no focal abnormalities. There is significant bilateral nephrolithiasis. There is no hydronephrosis. There is moderate distention of the large bowel. The pelvis shows no mass or adenopathy. Anastomotic surgical clips are seen in the region of the left side of the colon. The aorta, adrenals, and pancreas show no acute abnormalities. There is no free air or free fluid. There is no discrete abscess identified. A small upper pole right renal cyst is seen. IMPRESSION: BILATERAL NEPHROLITHIASIS. MODERATE BOWEL DISTENTION. APPENDIX NOT IDENTIFIED. GALLBLADDER REMOVED. NO HYDRONEPHROSIS. NO ABSCESS. NO DISCRETE SOURCE OF ELEVATED WHITE BLOOD CELL COUNT, ASIDE FROM BOWEL DISTENTION. Bubba Baltazar MD 05/08/19 [id number] Thank you for allowing us to participate in the care of your patient.
[2019-05-08] MEDS ORDERED: HYDROmorphone 1 MG/ML Syringe IVPUSH ONE (11:52)
[2019-05-08] MEDS ORDERED: Ondansetron 4 MG/2 ML SDV IVPUSH ONE (12:27)
[2019-05-08] MEDS ORDERED: Lactated Ringers 1,000 ML IV SCH (12:30)
== END 2019-05-08 14:25 | disposition short-term general hospital (02) ==
LOC: VM.ED 09:36
DX: K50.911 Crohn's disease, unspecified, with rectal bleeding (principal); K21.9 Gastro-esophageal reflux disease without esophagitis; Z90.49 Acquired absence of other specified parts of digestive tract; N18.9 Chronic kidney disease, unspecified; Z79.899 Other long term (current) drug therapy; Z88.5 Allergy status to narcotic agent; Z88.8 Allergy status to other drugs, medicaments and biological substances; Z88.0 Allergy status to penicillin
CPT/HCPCS: 36415; 74176; 80053; 82150; 83605; 83735; 84100; 85025; 85610; 86140; 87040; 96361; 96374; 96375; 99285; J0780; J1170; J1200; J2270; J2405; J7120

== ENCOUNTER 2019-05-15 18:34 | Emergency (ER) | payer BC, OTHER ==
[2019-05-15] MEDS ORDERED: Sodium Chloride 0.9% 1,000 ML IV ONE (19:09)
[2019-05-15] MEDS ORDERED: Prochlorperazine 10 MG/2 ML SDV IV ONE (19:10)
[2019-05-15] MEDS ORDERED: diphenhydrAMINE 50 MG/ML SDV IVPUSH ONE (19:10)
[2019-05-15] MEDS ORDERED: Dexamethasone 4 MG/ML SDV IVPUSH ONE (19:11)
[2019-05-15 19:47] LABS: ANION GAP 17.2 mmol/L (10-20)
--- NOTE | 2019-05-16 03:36 | EDM.PDOC ---
ED HPI GENERAL MEDICAL PROBLEM - General Chief Complaint: Abdominal Pain Stated Complaint: abdominal pain, vomiting Time Seen by Provider: 05/15/19 19:20 Source of Information: Reports: Patient, Old Records, RN Notes Reviewed History Limitations: Reports: No Limitations - History of Present Illness INITIAL COMMENTS - FREE TEXT/NARRATIVE: Pt. presents to ER with intractable vomiting, diffuse abdominal pain, and weakness. Pt. has a history of severe Crohn's disease and received remicade and IV hydration of 1 liter of normal saline a few hours before presenting to ER. Pt. has a history of CKD and she had her creatinine checked today and it was 2.6. Plan was for the patient to come to the clinic tomorrow for repeat labs in the morning and follow-up with Dr. Oliva. Pt. states that the nausea and vomiting got worse and she was unable to hold down fluids so she came to the ER. Pt. was discharged from [facility] last week and had been transferred there for abdominal pain, leukocytosis, CHARIS, and severe dehydration. She did undergo upper endoscopy which revealed reflux and apparently no other pathology. She was diagnosed with mild Crohns flare-up. Denies any fever or chills. States that she continues to have a small amount of rectal bleeding which has been present for some time. She is colonized with c- diff but denies any large volume of diarrhea. Pt. is scheduled to follow-up with [facility] later this month. Onset: Today Onset Date: 05/16/19 Duration: Chronic, Constant Location: Reports: Abdomen Associated Symptoms: Reports: Nausea/Vomiting Right Abdomen Pain Score (Numeric/FACES): 8 - Related Data Allergies Allergy/AdvReac Type Severity Reaction Status Date / Time codeine Allergy Severe Anaphylactic Verified 05/15/19 19:46 Shock Penicillins Allergy Severe Anaphylactic Verified 05/15/19 19:46 Shock propoxyphene Allergy Severe Anaphylactic Verified 05/15/19 19:46 [From Darvocet-N] Shock lactose AdvReac Diarrhea Verified 05/15/19 19:46 metoclopramide [From Reglan] AdvReac Stomach Verified 05/15/19 19:46 Ache morphine AdvReac Headache Verified 05/15/19 19:46 Home Meds: Home Meds Lactobacillus Rhamnosus GG [Culturelle] 1 cap PO DAILY 09/01/18 [History] Amitriptyline [Elavil] 50 mg PO BEDTIME 11/23/18 [History] Gabapentin [Neurontin] 300 mg PO TID 11/23/18 [History] Melatonin 6 mg PO BEDTIME 11/23/18 [History] Omeprazole Magnesium [Prilosec Otc] 40 mg PO DAILY 11/23/18 [History] Simethicone 80 mg PO QID PRN 11/23/18 [History] traZODone HCl [Trazodone HCl] 50 mg PO BEDTIME 11/23/18 [History] Amylase/Lipase/Protease [Johnna DR 24,000 Unit] 2 cap PO TIDMEALS 02/22/19 [ History] Potassium Chloride 40 meq PO BID 02/22/19 [History] Sertraline [Zoloft] 25 mg PO DAILY 02/22/19 [History] azaTHIOprine [Imuran] 50 mg PO DAILY 02/22/19 [History] Metoclopramide HCl [Reglan] 5 mg PO TID #90 tablet 03/01/19 [Rx] Zinc Oxide [Desitin Creamy Diaper Rash Crm] 1 applic TOP Q2HR PRN 03/16/19 [ History] Dicyclomine HCl [Bentyl] 10 mg PO TID 04/14/19 [History] Famotidine 20 mg PO BEDTIME 04/14/19 [History] HYDROmorphone [Dilaudid] 2 mg PO Q4HR PRN 04/14/19 [History] Lidocaine/Prilocaine [Lidocaine-Prilocaine Cream] 1 applic TOP ASDIRECTED PRN [History] predniSONE [Prednisone] 35 mg PO DAILY 04/14/19 [History] Acetaminophen 625 mg PO TID 05/01/19 [History] Dronabinol [Marinol] 5 mg PO BIDAC 05/01/19 [History] Menthol/Methyl Salicylate [Icy Hot] 1 applic TOP QID PRN 05/01/19 [History] Vancomycin 125 mg PO BID 05/01/19 [History] Folic Acid/Multivit-Min/Lutein [Multi-Vitamin Gummies] 1 tab PO DAILY 05/02/19 [ History] Hydrocortisone [Anusol-HC] 1 applic RECTAL QID PRN 05/02/19 [History] Ondansetron [Ondansetron ODT] 8 mg PO TID 05/02/19 [History] Prochlorperazine [Compazine] 5 mg PO Q8H #90 tablet 05/03/19 [Rx] Past Medical History HEENT History: Reports: None Cardiovascular History: Reports: None Respiratory History: Reports: None Gastrointestinal History: Reports: GERD, Inflammatory Bowel Disease Other Gastrointestinal History: crohn's disease. colitis Genitourinary History: Reports: Acute Renal Failure, Chronic Renal Insuffiency RIG OPERATOR History: Reports: None Musculoskeletal History: Reports: Back Pain, Chronic Neurological History: Reports: None Psychiatric History: Reports: Anxiety Endocrine/Metabolic History: Reports: None Hematologic History: Reports: Anemia Immunologic History: Reports: Immunosuppression Oncologic (Cancer) History: Reports: None Dermatologic History: Reports: None - Infectious Disease History Infectious Disease History: Reports: None - Past Surgical History Head Surgeries/Procedures: Reports: None HEENT Surgical History: Reports: None GI Surgical History: Reports: Appendectomy, Cholecystectomy, Colonoscopy, Other (See Below) Other GI Surgeries/Procedures: partial sigmoidectomy Female Surgical History: Reports: None Oncologic Surgical History: Reports: None Social & Family History - Family History Family Medical History: Noncontributory HEENT: Reports: None Cardiac: Reports: None GI: Reports: None OBGYN: Reports: None Neurological: Reports: Parkinson's Psychiatric: Reports: None Endocrine/Metabolic: Reports: None Immunologic: Reports: None Dermatologic: Reports: None Oncologic: Reports: Brain, Liver - Tobacco Use Smoking Status *Q: Never Smoker - Caffeine Use Caffeine Use: Reports: Coffee - Living Situation & Occupation Living situation: Reports: , with Significant Other (from [place] but staying with her daughter in [place]) 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 Denies: Fever, Chills, Diaphoresis HEENT: Reports: No Symptoms Respiratory: Reports: No Symptoms Cardiovascular: Reports: No Symptoms Endocrine: Reports: No Symptoms GI/Abdominal: Reports: Abdominal Pain, Anorexia, Bloody Stool, Hematochezia, Nausea, Vomiting. Denies: Black Stool, Hematemesis, Melena : Reports: No Symptoms Musculoskeletal: Reports: No Symptoms Skin: Reports: No Symptoms Neurological: Reports: No Symptoms Psychiatric: Reports: No Symptoms Hematologic/Lymphatic: Reports: No Symptoms Immunologic: Reports: No Symptoms ED EXAM, GENERAL - Physical Exam Exam: See Below Exam Limited By: No Limitations General Appearance: Alert, WD/WN, Moderate Distress Head: Atraumatic, Normocephalic Neck: Normal Inspection, Supple, Non-Tender, Full Range of Motion Respiratory/Chest: No Respiratory Distress, Lungs Clear, Normal Breath Sounds, No Accessory Muscle Use, Chest Non-Tender Cardiovascular: Normal Peripheral Pulses, Regular Rate, Rhythm, No Edema, No Murmur GI/Abdominal: Normal Bowel Sounds, Soft, No Organomegaly, No Distention, No Mass , Tender (Female) Exam: Deferred Rectal (Female) Exam: Deferred Extremities: Normal Inspection, No Pedal Edema Neurological: Alert, Oriented, Normal Cognition, Normal Gait, No Motor/Sensory Deficits Psychiatric: Normal Affect, Anxious Skin Exam: Warm, Dry, Intact, Normal Color Lymphatic: No Adenopathy Course - Vital Signs Last Recorded V/S: Last Vital Signs Temp 36.9 C 05/15/19 19:09 Pulse 102 H 05/15/19 19:09 Resp 18 05/15/19 19:09 BP 126/67 05/15/19 19:09 Pulse Ox 98 05/15/19 19:09 - Orders/Labs/Meds Orders: Active Orders 24 hr Category Date Time Status Implanted Port Access [RC] ASDIRECTED Care 05/15/19 19:09 Active Labs: Laboratory Tests 05/15/19 05/15/19 05/15/19 Range/Units 19:20 19:20 19:20 WBC 13.0 H (4.0-10.0) x10^3/uL RBC 4.28 (4.00-5.50) x10^6/uL Hgb 12.0 (12.0-16.0) g/dL Hct 36.7 (33.0-47.0) % MCV 85.7 D (78.0-93.0) fL MCH 28.0 (26.0-32.0) pg MCHC 32.7 (32.0-36.0) g/dL RDW Coeff of Brianda 14.6 (10.0-15.0) % Plt Count 609 H (130-400) x10^3/uL Add Manual Diff Yes Neutrophils % (Manual) 77 (50-80) % Band Neutrophils % 2 (0-6) % Lymphocytes % (Manual) 14 L (25-50) % Monocytes % (Manual) 5 (2-11) % Eosinophils % (Manual) 1 (0-4) % Basophils % (Manual) 1 (0-1) % Vacuolated Monocytes Rare Toxic Granulation 1+ slight H Platelet Estimate Increased H PT 10.0 (10.0-12.8) SEC INR 0.9 L (2.0-3.5) Sodium 138 (136-145) mmol/L Potassium 4.2 (3.5-5.1) mmol/L Chloride 101 (98-107) mmol/L Carbon Dioxide 24 (21-32) mmol/L Anion Gap 17.2 (10-20) mmol/L BUN 54 H (7-18) mg/dL Creatinine 2.6 H (0.55-1.02) mg/dL Est Cr Clr Drug Dosing 17.81 mL/min Estimated GFR (MDRD) 20 Glucose 84 (74-106) mg/dL Calcium 8.5 (8.5-10.1) mg/dL Corrected Calcium 9.30 (8.5-10.1) mg/dL Total Bilirubin 0.2 (0.2-1.0) mg/dL AST 34 (15-37) U/L ALT 28 (14-59) U/L Alkaline Phosphatase 83 (46-116) U/L C-Reactive Protein 2.1 H (<=0.9) mg/dL Total Protein 7.0 (6.4-8.2) g/dL Albumin 3.0 L (3.4-5.0) g/dL Globulin 4.0 Albumin/Globulin Ratio 0.75 Meds: Medications Discontinued Medications Generic Name Dose Route Start Last Admin Trade Name Freq PRN Reason Stop Dose Admin Dexamethasone 8 mg 05/15/19 19:11 05/15/19 19:27 Dexamethasone IVPUSH 05/15/19 19:12 8 mg ONETIME ONE Administration Diphenhydramine HCl 50 mg 05/15/19 19:10 05/15/19 19:26 Benadryl IVPUSH 05/15/19 19:11 50 mg ONETIME ONE Administration Heparin Sodium (Porcine) Confirm 05/15/19 20:51 05/15/19 20:51 Heparin Lock Flush 100 Units/Ml Administered 05/15/19 20:52 500 units Dose Administration 500 units .ROUTE .STK-MED ONE Sodium Chloride 1,000 mls @ 1,000 mls/hr 05/15/19 19:09 05/15/19 19:23 Normal Saline IV 05/15/19 20:08 1,000 mls/hr .BOLUS ONE Administration Prochlorperazine Edisylate 10 mg 05/15/19 19:10 05/15/19 19:30 Compazine IV 05/15/19 19:11 10 mg ONETIME ONE Administration Departure - Departure Time of Disposition: 20:30 Disposition: Home, Self-Care 01 Condition: Fair Clinical Impression: Intractable vomiting with nausea Crohn's disease Qualifiers: Gastrointestinal tract location: unspecified location Digestive disease complication type: unspecified complication Qualified Code(s): K50.919 - Crohn' s disease, unspecified, with unspecified complications - Discharge Information Instructions: Nausea and Vomiting, Adult, Colitis Referrals: Xiomy Oliva MD [Primary Care Provider] - Forms: ED Department Discharge Additional Instructions: Continue with current medications. Follow-up with Dr. Oliva tomorrow for repeat labs. If you have continued vomiting and are unable to hold down any fluids, return to ER. Clear liquid diet tonight. - My Orders Last 24 Hours: My Active Orders 05/15/19 19:09 Implanted Port Access [RC] ASDIRECTED - Assessment/Plan Last 24 Hours: My Active Orders 05/15/19 19:09 Implanted Port Access [RC] ASDIRECTED Plan: Pt. was given another liter of NS, compazine 10mg IV, benadryl 50mg IV, and dexamethasone 8 mg IV. She reported feeling much improved after the medications. Plan is for patient to follow-up for repeat labs in the AM with Dr. Oliva. Continue with her current medications and dosages. Clear liquid diet. Return to ER if unable to hold down fluids.
== END 2019-05-15 21:26 | disposition home or self-care (01) ==
LOC: VM.ED 18:34
DX: K50.919 Crohn's disease, unspecified, with unspecified complications (principal); N18.9 Chronic kidney disease, unspecified; K21.9 Gastro-esophageal reflux disease without esophagitis; F41.9 Anxiety disorder, unspecified; Z90.49 Acquired absence of other specified parts of digestive tract; Z88.0 Allergy status to penicillin; Z88.5 Allergy status to narcotic agent; Z79.899 Other long term (current) drug therapy
CPT/HCPCS: 80053; 85025; 85610; 86140; 96360; 96374; 96375; 99284; J0780; J1100; J1200; J1642; J7030

== ENCOUNTER 2019-05-26 12:32 | Inpatient (IN) | payer BC, OTHER ==
[2019-05-26] MEDS ORDERED: HYDROCORTISONE RECTAL PRN (14:00)
[2019-05-26] MEDS ORDERED: Lidocaine/Prilocaine 2.5-2.5% Crm 5 GM Tube TOP PRN (14:00)
[2019-05-26] MEDS ORDERED: Menthol/Methyl Salicylate 85 GM Tube TOP PRN (14:00)
--- NOTE | 2019-05-26 14:15 | PCM.HP ---
H&P History of Present Illness - General Date of Service: 05/26/19 Admit Problem/Dx: Admission Diagnosis/Problem Admission Diagnosis/Problem Dehydration Source of Information: Patient History Limitations: Reports: No Limitations - History of Present Illness Initial Comments - Free Text/Narative: Mrs. Cota is a 44 yo female with PMH of Crohns complicated by chronic abdominal pain, nausea, and vomiting with recurrent hospitalizations for dehydration and acute kidney injury who was seen in clinic today for follow-up due to having a rough week with nausea and pain. She has had LLQ pain, which is an unusual location for her. She has also had persistent nausea and has been vomiting multiple times every day. She has been trying to eat and drink but is not sure how much she is actually keeping down. She has been having increased frequency of bowel movements as well. Yesterday, she had streaks of blood in both her emesis and her stools but that is resolved as of last evening. She did get extra IV fluids this week in the ER and has been getting IV anti-emetics almost every day without much relief in symptoms. She has been progressively feeling weaker and weaker and now feels lightheaded today as well. She has a sore throat from vomiting and continues with generalized joint pains as well. ROS is otherwise negative. - Related Data Allergies/Adverse Reactions: Allergies Allergy/AdvReac Type Severity Reaction Status Date / Time codeine Allergy Severe Anaphylactic Verified 05/26/19 13:20 Shock Penicillins Allergy Severe Anaphylactic Verified 05/26/19 13:20 Shock propoxyphene Allergy Severe Anaphylactic Verified 05/26/19 13:20 [From Darvocet-N] Shock lactose AdvReac Diarrhea Verified 05/26/19 13:20 metoclopramide [From Reglan] AdvReac Stomach Verified 05/26/19 13:20 Ache morphine AdvReac Headache Verified 05/26/19 13:20 Home Medications: Home Meds Lactobacillus Rhamnosus GG [Culturelle] 1 cap PO DAILY 09/01/18 [History] Gabapentin [Neurontin] 500 mg PO BEDTIME 11/23/18 [History] Melatonin 6 mg PO BEDTIME 11/23/18 [History] Omeprazole Magnesium [Prilosec Otc] 40 mg PO DAILY 11/23/18 [History] Simethicone 80 mg PO QID PRN 11/23/18 [History] traZODone HCl [Trazodone HCl] 50 mg PO BEDTIME 11/23/18 [History] Amylase/Lipase/Protease [Johnna DR 24,000 Unit] 2 cap PO TIDMEALS 02/22/19 [ History] Potassium Chloride 40 meq PO BID 02/22/19 [History] azaTHIOprine [Imuran] 50 mg PO DAILY 02/22/19 [History] Zinc Oxide [Desitin Creamy Diaper Rash Crm] 1 applic TOP Q2HR PRN 03/16/19 [ History] Dicyclomine HCl [Bentyl] 10 mg PO TID 04/14/19 [History] Famotidine 20 mg PO BEDTIME 04/14/19 [History] HYDROmorphone [Dilaudid] 2 mg PO Q4HR PRN 04/14/19 [History] Lidocaine/Prilocaine [Lidocaine-Prilocaine Cream] 1 applic TOP DAILY PRN [History] predniSONE [Prednisone] 30 mg PO DAILY 04/14/19 [History] Dronabinol [Marinol] 5 mg PO BIDAC 05/01/19 [History] Menthol/Methyl Salicylate [Icy Hot] 1 applic TOP QID PRN 05/01/19 [History] Hydrocortisone [Anusol-HC] 1 applic RECTAL QID PRN 05/02/19 [History] Prochlorperazine [Compazine] 5 mg PO Q8H #90 tablet 05/03/19 [Rx] Acetaminophen [Tylenol] 650 mg PO TID 05/26/19 [History] Cyclobenzaprine [Flexeril] 5 mg PO TID PRN 05/26/19 [History] Multivitamin with Minerals [Multivitamins with Minerals] 1 tab PO DAILY [History] Nystatin [Nystatin Crm] 1 applic TOP BID 05/26/19 [History] Corn-3/DHA/Epa/Fish Oil [Corn-3 Fish Oil 1,200 MG Sfgl] 1,200 mg PO DAILY [History] Vancomycin [Vancocin 125 MG/2.5 ML Soln] 125 mg PO BID 05/26/19 [History] Past Medical History HEENT History: Reports: None Cardiovascular History: Reports: None Respiratory History: Reports: None Gastrointestinal History: Reports: GERD, Inflammatory Bowel Disease Other Gastrointestinal History: crohn's disease. colitis Genitourinary History: Reports: Acute Renal Failure, Chronic Renal Insuffiency ELECTRONIC ENGRAVER History: Reports: None Musculoskeletal History: Reports: Back Pain, Chronic Neurological History: Reports: None Psychiatric History: Reports: Anxiety Endocrine/Metabolic History: Reports: None Hematologic History: Reports: Anemia Immunologic History: Reports: Immunosuppression Oncologic (Cancer) History: Reports: None Dermatologic History: Reports: None - Infectious Disease History Infectious Disease History: Reports: None - Past Surgical History Head Surgeries/Procedures: Reports: None HEENT Surgical History: Reports: None GI Surgical History: Reports: Appendectomy, Cholecystectomy, Colonoscopy, Other (See Below) Other GI Surgeries/Procedures: partial sigmoidectomy Female Surgical History: Reports: None Oncologic Surgical History: Reports: None Social & Family History - Family History HEENT: Reports: None Cardiac: Reports: None GI: Reports: None OBGYN: Reports: None Neurological: Reports: Parkinson's Psychiatric: Reports: None Endocrine/Metabolic: Reports: None Immunologic: Reports: None Dermatologic: Reports: None Oncologic: Reports: Brain, Liver - Tobacco Use Smoking Status *Q: Never Smoker Second Hand Smoke Exposure: No - Caffeine Use Caffeine Use: Reports: Coffee, Soda Caffeine Use Comment: 2cups of coffee 1 - 2 bottles of pop - Alcohol Use Alcohol Use History: No Alcohol Use in Last Twelve Months: No - Recreational Drug Use Recreational Drug Use: No - Living Situation & Occupation Living situation: Reports: , with Significant Other (from [place] but staying with her daughter in [place]) 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 Denies: Fever, Chills HEENT: Reports: No Symptoms Pulmonary: Reports: No Symptoms Cardiovascular: Reports: No Symptoms Gastrointestinal: Reports: Abdominal Pain, Diarrhea, Nausea, Vomiting Genitourinary: Reports: No Symptoms Musculoskeletal: Reports: No Symptoms Skin: Reports: No Symptoms Psychiatric: Reports: No Symptoms Neurological: Reports: No Symptoms Exam - Exam Exam: See Below - Vital Signs Weight: 39.463 kg - Exam General: Alert, Cooperative HEENT: Conjunctiva Clear, Mucosa Moist & [place], Posterior Pharynx Clear, Pupils Equal, Pupils Reactive, TMs Clear Neck: Supple, Trachea Midline. No: Lymphadenopathy, Thyromegaly Lungs: Clear to Auscultation, Normal Respiratory Effort Cardiovascular: Regular Rate, Regular Rhythm, Normal S1, Normal S2 GI/Abdominal Exam: Soft, No Organomegaly, No Distention, No Mass, Tender ( diffusely but especially in the LLQ without rebound, rigidity, or guarding), Abnormal Bowel Sounds (hyperactive) Extremities: Non-Tender, No Pedal Edema, Normal Capillary Refill Peripheral Pulses: 2+: Radial (L), Radial (R) Skin: Warm, Dry, Intact *Q Meaningful Use (ADM) - VTE *Q VTE Anticoagulation Contraindications: Medical/Procedure Contrai - Problem List (1) Intractable vomiting with nausea SNOMED Code(s): 083236535 ICD Code: R11.2 - NAUSEA WITH VOMITING, UNSPECIFIED Status: Acute Current Visit: No (2) CHARIS (acute kidney injury) SNOMED Code(s): 87275185, 04563726 ICD Code: N17.9 - ACUTE KIDNEY FAILURE, UNSPECIFIED Status: Acute Current Visit: No (3) Dehydration SNOMED Code(s): 72436489 ICD Code: E86.0 - DEHYDRATION Status: Acute Current Visit: No (4) Hypokalemia SNOMED Code(s): 78204350 ICD Code: E87.6 - HYPOKALEMIA Status: Acute Priority: Medium Current Visit: No (5) Chronic abdominal pain SNOMED Code(s): 137378342 ICD Code: R10.9 - UNSPECIFIED ABDOMINAL PAIN; G89.29 - OTHER CHRONIC PAIN Status: Chronic Priority: Medium Current Visit: No (6) Chronic kidney disease SNOMED Code(s): 422861895 ICD Code: N18.9 - CHRONIC KIDNEY DISEASE, UNSPECIFIED Status: Chronic Current Visit: No (7) Crohns disease SNOMED Code(s): 68016696 ICD Code: K50.90 - CROHN'S DISEASE, UNSPECIFIED, WITHOUT COMPLICATIONS Status: Chronic Current Visit: No Qualifiers: Gastrointestinal tract location: unspecified location Digestive disease complication type: without complication Qualified Code(s): K50.90 - Crohn's disease, unspecified, without complications (8) Severe malnutrition SNOMED Code(s): 07712345 ICD Code: E43 - UNSPECIFIED SEVERE PROTEIN-CALORIE MALNUTRITION Status: Chronic Current Visit: No Problem List Initiated/Reviewed/Updated: Yes Orders Last 24hrs: Active Orders 24 hr Category Date Time Status Admission Status [Patient Status] [ADT] Routine ADT 05/26/19 12:38 Active Notify Provider Vital Signs [RC] ASDIRECTED Care 05/26/19 13:51 Active Oxygen Therapy [RC] PRN Care 05/26/19 13:51 Active Up With Assistance [RC] ASDIRECTED Care 05/26/19 13:50 Active VTE/DVT Education [RC] PER UNIT ROUTINE Care 05/26/19 13:51 Active Vital Signs [RC] Q4H Care 05/26/19 13:51 Active Clear Liquid Diet [DIET] Diet 05/26/19 Dinner Active BASIC METABOLIC PANEL,BMP [CHEM] Routine Lab 05/27/19 05:11 Ordered CBC WITH AUTO DIFF [HEME] Routine Lab 05/27/19 05:11 Ordered Amylase/Lipase/Protease Med 05/26/19 18:00 Ordered 2 cap PO TIDMEALS D5 1/2 NS w/ 20 mEq/L KCl 1,000 ml Med 05/26/19 14:00 Ordered IV ASDIRECTED Dicyclomine [Bentyl] Med 05/26/19 20:00 Ordered 10 mg PO TID Dronabinol [Marinol] Med 05/26/19 17:00 Ordered 5 mg PO BIDAC Gabapentin [Neurontin] Med 05/26/19 20:00 Ordered 500 mg PO BEDTIME Hydrocortisone [Anusol-HC] Med 05/26/19 14:00 Ordered 1 applic RECTAL QID PRN Lidocaine/Prilocaine [EMLA Crm] Med 05/26/19 14:00 Ordered 1 applic TOP DAILY PRN Melatonin Med 05/26/19 20:00 Ordered 6 mg PO BEDTIME Menthol/Methyl Salicylate [Icy Hot Cream] Med 05/26/19 14:00 Ordered 1 applic TOP QID PRN Metoclopramide [Reglan] Med 05/26/19 14:06 Ordered 5 mg IVPUSH Q6H PRN Nystatin [Nystatin Crm] Med 05/26/19 20:00 Ordered 1 applic TOP BID Omeprazole Magnesium [Prilosec Otc] Med 05/27/19 08:00 Ordered 40 mg PO DAILY Ondansetron [Zofran] Med 05/26/19 14:05 Ordered 4 mg IVPUSH Q6H PRN Prochlorperazine [Compazine] Med 05/26/19 14:05 Ordered 10 mg IV TID Vancomycin [Vancocin 125 MG/2.5 ML Soln] Med 05/26/19 20:00 Ordered 125 mg PO BID Zinc Oxide Med 05/26/19 14:00 Ordered 1 applic TOP Q2HR PRN azaTHIOprine [Imuran] Med 05/27/19 08:00 Ordered 50 mg PO DAILY diphenhydrAMINE [Benadryl] Med 05/26/19 14:06 Ordered 25 mg IVPUSH Q8H PRN traZODone Med 05/26/19 20:00 Ordered 50 mg PO BEDTIME Anticoagulation Contraindications VTE [AST] Per Unit Oth 05/26/19 13:50 Ordered Routine Resuscitation Status Routine Resus Stat 05/26/19 13:50 Ordered Medication Orders Azathioprine (Imuran) 50 mg PO DAILY MARY Dicyclomine HCl (Bentyl) 10 mg PO TID MARY Diphenhydramine HCl (Benadryl) 25 mg IVPUSH Q8H PRN PRN Reason: Nausea Gabapentin (Neurontin) 500 mg PO BEDTIME MARY Potassium Chloride/Dextrose/Sod Cl (D5 1/2 Ns W/ 20 Meq/L Kcl) 1,000 mls @ 100 mls/hr IV ASDIRECTED MARY Lidocaine/Prilocaine (Emla Crm) gm TOP DAILY PRN PRN Reason: Pain Melatonin (Melatonin) 6 mg PO BEDTIME MARY Methyl Salicylate (Icy Hot Cream) gm TOP QID PRN PRN Reason: Pain (mild 1-3) Metoclopramide HCl (Reglan) 5 mg IVPUSH Q6H PRN PRN Reason: Nausea Non-Formulary Medication (Amylase/Lipase/Protease) 2 cap PO TIDMEALS MARY Non-Formulary Medication (Dronabinol [Marinol]) 5 mg PO BIDAC MARY Non-Formulary Medication (Hydrocortisone [Anusol-Hc]) 1 applic RECTAL QID PRN PRN Reason: Itching Non-Formulary Medication (Omeprazole Magnesium [Prilosec Otc]) 40 mg PO DAILY MARY Non-Formulary Medication (Zinc Oxide) 1 applic TOP Q2HR PRN PRN Reason: Rash Nystatin (Nystatin Crm) gm TOP BID MARY Ondansetron HCl (Zofran) 4 mg IVPUSH Q6H PRN PRN Reason: Nausea Prochlorperazine Edisylate (Compazine) 10 mg IV TID MARY Trazodone HCl (Trazodone) 50 mg PO BEDTIME MARY Vancomycin HCl (Vancocin 125 Mg/2.5 Ml Soln) 125 mg PO BID [facility] Assessment/Plan Comment:: 44 yo female with h/o recurrent admissions for dehydration and CHARIS secondary to intractable nausea and vomiting who is admitted again with the same. #1 Intractable nausea and vomiting #2 CHARIS #3 Dehydration #4 Hypokalemia - Creatinine has been holding steady this week despite giving extra outpatient IV fluids than her usual. - Given the lack of improvement in her creatinine as well as the fact that her nausea and vomiting have not responded to PO medications (and IV dosing this week as well), admission recommended for IV medications and IV fluids. - Patient has tolerated slower re-hydration better in the past. Will do D5 1/2 normal saline with 20 KCl at 100 cc/hr. - Per her report of GI recommendations, will do clear liquid diet for at least 2 days. - Will also do as many medications given IV instead of PO as possible. - Will schedule compazine as this has traditionally worked the best for her and then do zofran (1st option), reglan (2nd option), and benadryl (3rd option) PRN. - Recheck labs in the am. #5 Chronic Abdominal Pain #6 Crohn's Disease #7 Severe malnutrition - Hold dilaudid as per recommendations from GI in the past. - Will do IV solu-medrol instead of PO prednisone. - Holding tylenol as well to limit amount of oral medications. - If she continues to have pain despite above interventions, will consider addition of IV dilaudid. #8 Chronic Kidney Disease - She will see nephrology in June. Patient will be admitted to acute given expectation she will be on clear liquids and IV medications for at least 2 midnights. Will recheck labs in the am. Code status is full - discussed on admission. Hold off on pharmacologic VTE prophylaxis until confirmed that her bloody emesis and stools are resolved and her hemoglobin is stable. Will encourage ambulation. Web Developer Programmer to follow over the weekend.
[2019-05-26] MEDS: HYDROmorphone 1 MG/ML Syringe IVPUSH PRN ×2 (15:25→20:05)
[2019-05-26] MEDS: Prochlorperazine 10 MG/2 ML SDV IV SCH ×2 (15:27→19:54)
[2019-05-26] MEDS: D5 1/2 NS w/ 20 mEq/L KCl 1,000 ML IV SCH (15:27)
[2019-05-26] MEDS: DRONABINOL 5 MG PO SCH (17:45)
[2019-05-26] MEDS: CREON PO SCH (17:47)
[2019-05-26] MEDS: Ondansetron 4 MG/2 ML SDV IVPUSH PRN (17:53)
[2019-05-26] MEDS: Sodium Chloride 0.9% 10 ML Syringe IV PRN ×2 (20:01→22:45)
[2019-05-26] MEDS: Melatonin 3 MG Tab PO SCH (20:02)
[2019-05-26] MEDS: Vancomycin 125 MG Cap PO SCH (20:02)
[2019-05-26] MEDS: Gabapentin 100 MG Cap PO SCH (20:02)
[2019-05-26] MEDS: traZODone 50 MG Tab PO SCH (20:02)
[2019-05-26] MEDS: Dicyclomine 10 MG Cap PO SCH (20:03)
[2019-05-26] MEDS: Nystatin Crm 30 GM Tube TOP SCH (20:09)
[2019-05-26] MEDS: Metoclopramide 10 MG/2 ML SDV IVPUSH PRN (20:16)
[2019-05-26] MEDS: diphenhydrAMINE 50 MG/ML SDV IVPUSH PRN (22:45)
[2019-05-27] MEDS: HYDROmorphone 1 MG/ML Syringe IVPUSH PRN ×5 (00:18→20:13)
[2019-05-27] MEDS: Ondansetron 4 MG/2 ML SDV IVPUSH PRN ×4 (00:19→18:39)
[2019-05-27] MEDS: Sodium Chloride 0.9% 10 ML Syringe IV PRN ×5 (00:22→20:19)
[2019-05-27] MEDS: D5 1/2 NS w/ 20 mEq/L KCl 1,000 ML IV SCH ×3 (01:39→20:13)
[2019-05-27] MEDS: Metoclopramide 10 MG/2 ML SDV IVPUSH PRN ×3 (03:24→23:11)
[2019-05-27] MEDS: Omeprazole 20 MG Cap.CR PO SCH (06:43)
[2019-05-27] MEDS: DRONABINOL 5 MG PO SCH ×2 (06:43→17:02)
[2019-05-27] MEDS: diphenhydrAMINE 50 MG/ML SDV IVPUSH PRN ×3 (07:50→20:16)
[2019-05-27] MEDS: Prochlorperazine 10 MG/2 ML SDV IV SCH ×3 (08:31→20:55)
[2019-05-27] MEDS: Vancomycin 125 MG Cap PO SCH ×2 (08:31→20:21)
[2019-05-27] MEDS: methylPREDNISolone Sodium Succinate 40 MG/1 ML SDV IVPUSH SCH (08:32)
[2019-05-27] MEDS: Nystatin Crm 30 GM Tube TOP SCH ×2 (08:32→20:20)
[2019-05-27] MEDS: Dicyclomine 10 MG Cap PO SCH ×3 (08:33→20:21)
[2019-05-27] MEDS: CREON PO SCH ×3 (08:35→18:40)
--- NOTE | 2019-05-27 10:47 | PCM.PN ---
- General Info Date of Service: 05/27/19 Admission Dx/Problem (Free Text): nausea secondary to Crohn's disease with hypokalemia and dehydration Subjective Update: Pt continues to have nausea, she vomited up clear iquids this am. She states this is like all the other episodes she has had over the last 18 months. She has had frequent BM's. Feels anxious but this happens when her K is low. Pt state IV benadryl help nausea the most. She is using 25 q 8 presentlyi - Patient Data Vitals - Most Recent: Last Vital Signs Temp 98.5 F 05/27/19 09:53 Pulse 74 05/27/19 09:53 Resp 14 05/27/19 09:53 BP 90/48 L 05/27/19 09:53 Pulse Ox 98 05/27/19 09:53 Weight - Most Recent: 87 lb I&O - Last 24 Hours: Intake & Output 05/26/19 05/27/19 05/27/19 22:59 06:59 14:59 Intake Total 1608 0 Output Total 400 Balance -400 1608 0 Lab Results Last 24 Hours: Laboratory Results - last 24 hr 05/27/19 05/27/19 Range/Units 07:48 07:48 WBC 6.0 (4.0-10.0) x10^3/uL RBC 3.78 L (4.00-5.50) x10^6/uL Hgb 10.6 L (12.0-16.0) g/dL Hct 32.6 L (33.0-47.0) % MCV 86.2 (78.0-93.0) fL MCH 28.0 (26.0-32.0) pg MCHC 32.5 (32.0-36.0) g/dL RDW Coeff of Brianda 14.9 (10.0-15.0) % Plt Count 439 H D (130-400) x10^3/uL Neut % (Auto) 70.4 (50.0-80.0) % Lymph % (Auto) 19.3 L (25.0-50.0) % [place] % (Auto) 6.3 (2.0-11.0) % Eos % (Auto) 3.5 (0.0-4.0) % Baso % (Auto) 0.5 (0.2-1.2) % Sodium 137 (136-145) mmol/L Potassium 3.0 L (3.5-5.1) mmol/L Chloride 104 (98-107) mmol/L Carbon Dioxide 22 (21-32) mmol/L Anion Gap 14.0 (10-20) mmol/L BUN 26 H (7-18) mg/dL Creatinine 1.6 H (0.55-1.02) mg/dL Est Cr Clr Drug Dosing 27.37 mL/min Estimated GFR (MDRD) 35 Glucose 104 (74-106) mg/dL Calcium 8.6 (8.5-10.1) mg/dL Med Orders - Current: Current Medications Azathioprine (Imuran) 50 mg PO DAILY [facility] Last Admin: 05/27/19 08:31 Dose: 50 mg Dicyclomine HCl (Bentyl) 10 mg PO TID [facility] Last Admin: 05/27/19 08:33 Dose: 10 mg Diphenhydramine HCl (Benadryl) 25 mg IVPUSH Q6H PRN PRN Reason: Nausea Gabapentin (Neurontin) 500 mg PO BEDTIME [facility] Last Admin: 05/26/19 20:02 Dose: 500 mg Heparin Sodium (Porcine) (Heparin Lock Flush 100 Units/Ml) 500 units IVPUSH ASDIRECTED PRN PRN Reason: Keep Vein Open Hydromorphone HCl (Dilaudid) 0.25 mg IVPUSH Q4H PRN PRN Reason: Pain Last Admin: 05/27/19 09:58 Dose: 0.25 mg Potassium Chloride/Dextrose/Sod Cl (D5 1/2 Ns W/ 20 Meq/L Kcl) 1,000 mls @ 125 mls/hr IV ASDIRECTED [facility] Last Admin: 05/27/19 01:39 Dose: 100 mls/hr Lidocaine/Prilocaine (Emla Crm) 0 gm TOP DAILY PRN PRN Reason: Pain Melatonin (Melatonin) 6 mg PO BEDTIME [facility] Last Admin: 05/26/19 20:02 Dose: 6 mg Methyl Salicylate (Icy Hot Cream) 0 gm TOP QID PRN PRN Reason: Pain (mild 1-3) Methylprednisolone Sodium Succinate (Solu-Medrol) 40 mg IVPUSH DAILY [facility] Last Admin: 05/27/19 08:32 Dose: 40 mg Metoclopramide HCl (Reglan) 5 mg IVPUSH Q6H PRN PRN Reason: Nausea Last Admin: 05/27/19 03:24 Dose: 5 mg Multi-Ingred Cream/Lotion/Oil/Oint (Zinc Oxide) 0 gm TOP Q2H PRN PRN Reason: RASH Own MedCreon ( Amylase/Lipase/Protease 2 Cap) 2 cap PO TIDMEALS [facility] Last Admin: 05/27/19 08:35 Dose: 2 cap Dronabinol 5 Mg Caps (Own Med) 0 mg PO BIDAC [facility] Last Admin: 05/27/19 06:43 Dose: 5 mg Non-Formulary Medication (Hydrocortisone [Anusol-Hc]) 1 applic RECTAL QID PRN PRN Reason: Itching Nystatin (Nystatin Crm) 0 gm TOP BID [facility] Last Admin: 05/27/19 08:32 Dose: 1 dose Omeprazole (Omeprazole) 40 mg PO DAILY@0700 [facility] Last Admin: 05/27/19 06:43 Dose: 40 mg Ondansetron HCl (Zofran) 4 mg IVPUSH Q6H PRN PRN Reason: Nausea Last Admin: 05/27/19 05:52 Dose: 4 mg Prochlorperazine Edisylate (Compazine) 10 mg IV TID [facility] Last Admin: 05/27/19 08:31 Dose: 10 mg Sodium Chloride (Saline Flush) 20 ml IV ASDIRECTED PRN PRN Reason: Keep Vein Open Last Admin: 05/27/19 07:52 Dose: 20 ml Trazodone HCl (Trazodone) 50 mg PO BEDTIME [facility] Last Admin: 05/26/19 20:02 Dose: 50 mg Vancomycin HCl (Vancomycin) 125 mg PO BID [facility] Last Admin: 05/27/19 08:31 Dose: 125 mg Discontinued Medications Diphenhydramine HCl (Benadryl) 25 mg IVPUSH Q8H PRN PRN Reason: Nausea Last Admin: 05/27/19 07:50 Dose: 25 mg Comments:: Pt in NAD, a little sleepy but appropriate; lungs clear cor s1s2 normal w/o rubs,murmurs or gallops abd: bs Active : Legs: no edema - Problem List Review Problem List Initiated/Reviewed/Updated: Yes - My Orders Last 24 Hours: My Active Orders 05/27/19 09:37 diphenhydrAMINE [Benadryl] 25 mg IVPUSH Q6H PRN 05/28/19 09:39 BMP [BASIC METABOLIC PANEL,BMP] [CHEM] Routine - Assessment Assessment:: A; Continued nausea and vomiting form crohns: plan increase benadryl to q 6 prn 2. Dehydration with Elevated creatinine: reportedly this was up to 2.o earlier this week, so 1.6. is an improvemn:K is still low; will try increasing fluid to 125 cc/hour.checlk BMP in AM - Plan Plan:: 44 yo female with h/o recurrent admissions for dehydration and CHARIS secondary to intractable nausea and vomiting who is admitted again with the same. #1 Intractable nausea and vomiting #2 CHARIS #3 Dehydration #4 Hypokalemia - Creatinine has been holding steady this week despite giving extra outpatient IV fluids than her usual. - Given the lack of improvement in her creatinine as well as the fact that her nausea and vomiting have not responded to PO medications (and IV dosing this week as well), admission recommended for IV medications and IV fluids. - Patient has tolerated slower re-hydration better in the past. Will do D5 1/2 normal saline with 20 KCl at 100 cc/hr. - Per her report of GI recommendations, will do clear liquid diet for at least 2 days. - Will also do as many medications given IV instead of PO as possible. - Will schedule compazine as this has traditionally worked the best for her and then do zofran (1st option), reglan (2nd option), and benadryl (3rd option) PRN. - Recheck labs in the am. #5 Chronic Abdominal Pain #6 Crohn's Disease #7 Severe malnutrition - Hold dilaudid as per recommendations from GI in the past. - Will do IV solu-medrol instead of PO prednisone. - Holding tylenol as well to limit amount of oral medications. - If she continues to have pain despite above interventions, will consider addition of IV dilaudid. #8 Chronic Kidney Disease - She will see nephrology in June. Patient will be admitted to acute given expectation she will be on clear liquids and IV medications for at least 2 midnights. Will recheck labs in the am. Code status is full - discussed on admission. Hold off on pharmacologic VTE prophylaxis until confirmed that her bloody emesis and stools are resolved and her hemoglobin is stable. Will encourage ambulation. Process Checker to follow over the weekend.
[2019-05-27] MEDS: Melatonin 3 MG Tab PO SCH (20:21)
[2019-05-27] MEDS: Gabapentin 100 MG Cap PO SCH (20:21)
[2019-05-27] MEDS: traZODone 50 MG Tab PO SCH (20:22)
[2019-05-28] MEDS: Ondansetron 4 MG/2 ML SDV IVPUSH PRN ×2 (00:31→19:33)
[2019-05-28] MEDS: HYDROmorphone 1 MG/ML Syringe IVPUSH PRN ×6 (00:35→23:51)
[2019-05-28] MEDS: Sodium Chloride 0.9% 10 ML Syringe IV PRN ×3 (00:35→22:18)
[2019-05-28] MEDS: diphenhydrAMINE 50 MG/ML SDV IVPUSH PRN ×4 (02:31→23:49)
[2019-05-28] MEDS: D5 1/2 NS w/ 20 mEq/L KCl 1,000 ML IV SCH (04:07)
[2019-05-28] MEDS: Metoclopramide 10 MG/2 ML SDV IVPUSH PRN ×3 (05:52→22:17)
[2019-05-28] MEDS: Omeprazole 20 MG Cap.CR PO SCH (06:57)
[2019-05-28] MEDS: DRONABINOL 5 MG PO SCH ×2 (06:57→17:37)
[2019-05-28] MEDS: Dicyclomine 10 MG Cap PO SCH ×3 (08:26→19:35)
[2019-05-28] MEDS: Vancomycin 125 MG Cap PO SCH ×2 (08:27→19:35)
[2019-05-28] MEDS: Prochlorperazine 10 MG/2 ML SDV IV SCH ×3 (08:27→19:32)
[2019-05-28] MEDS: methylPREDNISolone Sodium Succinate 40 MG/1 ML SDV IVPUSH SCH (08:28)
[2019-05-28] MEDS: Nystatin Crm 30 GM Tube TOP SCH ×2 (08:28→19:35)
[2019-05-28] MEDS: CREON PO SCH ×3 (08:29→17:37)
[2019-05-28 08:38] LABS: ANION GAP 14.7 mmol/L (10-20)
--- NOTE | 2019-05-28 09:57 | PCM.PN ---
- General Info Date of Service: 05/28/19 Admission Dx/Problem (Free Text): Patient continues to have a fair amount of pain. Her last dose of Dilaudid 0.25 did not help. She is continuing to have nausea was somewhat better with the higher dose of Benadryl and her diarrhea persists. In the past increasing her dose of prednisone really didn't help her pain or her nausea Objective vital signs are stable she has no fever Cor S1-S2 normal without rubs murmurs or gallops she has mildly tender abdomen Labs are notable for a decrease in the B UN 26-16 but her creatinine is still 1.6 ; potassium is down from 3.0-2.7 and CO2 was down to 19 Impression: Continued abdominal pain from Crohn's disease Plan. Increase Dilaudid 2.2 5.50 IV when necessary 2. Hypokalemia at 10 mEq of potassium over an hour 3 through a peripheral IV 3. Dehydration: I believe this is probably improving 4. Malnutrition: Patient would be a candidate for TPN if she does not start improving soon - Patient Data Vitals - Most Recent: Last Vital Signs Temp 97.7 F 05/28/19 06:00 Pulse 74 05/28/19 06:00 Resp 16 05/28/19 06:00 BP 101/48 L 05/28/19 06:00 Pulse Ox 98 05/28/19 06:00 Weight - Most Recent: 87 lb I&O - Last 24 Hours: Intake & Output 05/27/19 05/28/19 05/28/19 22:59 06:59 14:59 Intake Total 1659 1785 Output Total 200 3 100 Balance 1459 1782 -100 Lab Results Last 24 Hours: Laboratory Results - last 24 hr 05/28/19 Range/Units 08:07 Sodium 139 (136-145) mmol/L Potassium 2.7 L* (3.5-5.1) mmol/L Chloride 108 H (98-107) mmol/L Carbon Dioxide 19 L (21-32) mmol/L Anion Gap 14.7 (10-20) mmol/L BUN 16 (7-18) mg/dL Creatinine 1.6 H (0.55-1.02) mg/dL Est Cr Clr Drug Dosing 27.37 mL/min Estimated GFR (MDRD) 35 Glucose 103 (74-106) mg/dL Calcium 8.2 L (8.5-10.1) mg/dL Med Orders - Current: Current Medications Azathioprine (Imuran) 50 mg PO DAILY [facility] Last Admin: 05/28/19 08:27 Dose: 50 mg Dicyclomine HCl (Bentyl) 10 mg PO TID [facility] Last Admin: 05/28/19 08:26 Dose: 10 mg Diphenhydramine HCl (Benadryl) 25 mg IVPUSH Q6H PRN PRN Reason: Nausea Last Admin: 05/28/19 02:31 Dose: 25 mg Gabapentin (Neurontin) 500 mg PO BEDTIME [facility] Last Admin: 05/27/19 20:21 Dose: 500 mg Heparin Sodium (Porcine) (Heparin Lock Flush 100 Units/Ml) 500 units IVPUSH ASDIRECTED PRN PRN Reason: Keep Vein Open Last Admin: 05/28/19 07:57 Dose: 500 units Hydromorphone HCl (Dilaudid) 0.25 - 0.5 mg IVPUSH Q4H PRN PRN Reason: Pain Potassium Chloride/Dextrose/Sod Cl (D5 1/2 Ns W/ 20 Meq/L Kcl) 1,000 mls @ 125 mls/hr IV ASDIRECTED [facility] Last Admin: 05/28/19 04:07 Dose: 125 mls/hr Potassium Chloride 10 meq/ (Premix) 50 mls @ 50 mls/hr IV Q1H [facility] Stop: 05/28/19 12:59 Lidocaine/Prilocaine (Emla Crm) 0 gm TOP DAILY PRN PRN Reason: Pain Melatonin (Melatonin) 6 mg PO BEDTIME [facility] Last Admin: 05/27/19 20:21 Dose: 6 mg Methyl Salicylate (Icy Hot Cream) 0 gm TOP QID PRN PRN Reason: Pain (mild 1-3) Methylprednisolone Sodium Succinate (Solu-Medrol) 40 mg IVPUSH DAILY [facility] Last Admin: 05/28/19 08:28 Dose: 40 mg Metoclopramide HCl (Reglan) 5 mg IVPUSH Q6H PRN PRN Reason: Nausea Last Admin: 05/28/19 05:52 Dose: 5 mg Multi-Ingred Cream/Lotion/Oil/Oint (Zinc Oxide) 0 gm TOP Q2H PRN PRN Reason: RASH Own MedCreon ( Amylase/Lipase/Protease 2 Cap) 2 cap PO TIDMEALS [facility] Last Admin: 05/28/19 08:29 Dose: 2 cap Dronabinol 5 Mg Caps (Own Med) 0 mg PO BIDAC [facility] Last Admin: 05/28/19 06:57 Dose: 5 mg Non-Formulary Medication (Hydrocortisone [Anusol-Hc]) 1 applic RECTAL QID PRN PRN Reason: Itching Nystatin (Nystatin Crm) 0 gm TOP BID [facility] Last Admin: 05/28/19 08:28 Dose: 1 dose Omeprazole (Omeprazole) 40 mg PO DAILY@0700 [facility] Last Admin: 05/28/19 06:57 Dose: 40 mg Ondansetron HCl (Zofran) 4 mg IVPUSH Q6H PRN PRN Reason: Nausea Last Admin: 05/28/19 00:31 Dose: 4 mg Prochlorperazine Edisylate (Compazine) 10 mg IV TID [facility] Last Admin: 05/28/19 08:27 Dose: 10 mg Sodium Chloride (Saline Flush) 20 ml IV ASDIRECTED PRN PRN Reason: Keep Vein Open Last Admin: 05/28/19 07:57 Dose: 20 ml Sodium Chloride (Saline Flush) 10 ml FLUSH ASDIRECTED PRN PRN Reason: Keep Vein Open Trazodone HCl (Trazodone) 50 mg PO BEDTIME [facility] Last Admin: 05/27/19 20:22 Dose: 50 mg Vancomycin HCl (Vancomycin) 125 mg PO BID [facility] Last Admin: 05/28/19 08:27 Dose: 125 mg Discontinued Medications Diphenhydramine HCl (Benadryl) 25 mg IVPUSH Q8H PRN PRN Reason: Nausea Last Admin: 05/27/19 07:50 Dose: 25 mg Hydromorphone HCl (Dilaudid) 0.25 mg IVPUSH Q4H PRN PRN Reason: Pain Last Admin: 05/28/19 05:53 Dose: 0.25 mg - Problem List Review Problem List Initiated/Reviewed/Updated: Yes - My Orders Last 24 Hours: My Active Orders 05/27/19 09:37 diphenhydrAMINE [Benadryl] 25 mg IVPUSH Q6H PRN 05/28/19 09:46 HYDROmorphone [Dilaudid] 0.25 - 0.5 mg IVPUSH Q4H PRN Sodium Chloride 0.9% [Saline Flush] 10 ml FLUSH ASDIRECTED PRN Saline Lock Insert [OM.PC] Routine 05/28/19 10:00 Potassium Chloride [KCl 10 MEQ in Water 50 ML] 10 meq Premix Bag 1 bag IV Q1H 05/28/19 18:00 BASIC METABOLIC PANEL,BMP [CHEM] Routine
[2019-05-28] MEDS ORDERED: Potassium Chloride 10 MEQ in Premix Bag 1 BAG IV SCH (10:00)
[2019-05-28] MEDS ORDERED: D5 IV SCH ×2 (10:30)
[2019-05-28] MEDS ORDERED: 1/2 NS W IV SCH ×2 (10:30)
[2019-05-28] MEDS ORDERED: VITAMIN K IV SCH ×2 (10:30)
[2019-05-28] MEDS ORDERED: KCL IV SCH ×2 (10:30)
[2019-05-28] MEDS ORDERED: MVI IV SCH ×2 (10:30)
[2019-05-28] MEDS: traZODone 50 MG Tab PO SCH (19:34)
[2019-05-28] MEDS: Gabapentin 100 MG Cap PO SCH (19:34)
[2019-05-28] MEDS: Melatonin 3 MG Tab PO SCH (19:35)
[2019-05-28] MEDS ORDERED: D5 1/2 NS w/ 40 mEq/L KCl 1,000 ML IV SCH ×2 (22:45)
[2019-05-29] MEDS: Sodium Chloride 0.9% 10 ML Syringe FLUSH PRN (03:25)
[2019-05-29] MEDS: Ondansetron 4 MG/2 ML SDV IVPUSH PRN ×3 (03:25→16:22)
[2019-05-29] MEDS: HYDROmorphone 1 MG/ML Syringe IVPUSH PRN ×5 (04:05→20:31)
[2019-05-29] MEDS: Omeprazole 20 MG Cap.CR PO SCH (06:29)
[2019-05-29] MEDS: Metoclopramide 10 MG/2 ML SDV IVPUSH PRN ×2 (06:31→12:16)
[2019-05-29] MEDS: Sodium Chloride 0.9% 10 ML Syringe IV PRN (06:34)
[2019-05-29] MEDS: DRONABINOL 5 MG PO SCH ×2 (06:35→17:37)
[2019-05-29 07:07] LABS: ANION GAP 15.6 mmol/L (10-20)
[2019-05-29] MEDS: Vancomycin 125 MG Cap PO SCH ×2 (07:57→20:30)
[2019-05-29] MEDS: Dicyclomine 10 MG Cap PO SCH ×3 (07:58→20:30)
[2019-05-29] MEDS: Prochlorperazine 10 MG/2 ML SDV IV SCH ×3 (07:58→20:31)
[2019-05-29] MEDS: CREON PO SCH ×3 (07:59→17:37)
[2019-05-29] MEDS ORDERED: KCL IV SCH ×2 (08:00)
[2019-05-29] MEDS: Nystatin Crm 30 GM Tube TOP SCH ×2 (08:00→20:42)
[2019-05-29] MEDS ORDERED: VITAMIN K IV SCH ×2 (08:00)
[2019-05-29] MEDS ORDERED: 1/2 NS W IV SCH ×2 (08:00)
[2019-05-29] MEDS ORDERED: MVI IV SCH ×2 (08:00)
[2019-05-29] MEDS ORDERED: D5 IV SCH ×2 (08:00)
[2019-05-29] MEDS: methylPREDNISolone Sodium Succinate 40 MG/1 ML SDV IVPUSH SCH (09:53)
[2019-05-29] MEDS: diphenhydrAMINE 50 MG/ML SDV IVPUSH PRN (10:56)
--- NOTE | 2019-05-29 12:50 | PCM.PN ---
- General Info Date of Service: 05/29/19 Subjective Update: 44 yo female hospital day #4 admitted with dehydration and CHARIS secondary to intractable nausea and vomiting as well as acute on chronic abdominal pain. She has had very little improvement since the end of last week. She continues with significant nausea. Although she is vomiting less than she was prior to admission, she has already vomited 3 times today. She is able to keep some of the clear liquids down. She continues with increased bowel movement frequency compared to her usual but also notes the BM's are very small. No blood in the stools or emesis. She is still having left sided abdominal pain as well that really has not improved since admission. She is starting to feel that she is getting fluid overloaded. - Review of Systems General: Reports: No Symptoms HEENT: Reports: No Symptoms Pulmonary: Reports: No Symptoms Cardiovascular: Reports: No Symptoms Gastrointestinal: Reports: Abdominal Pain, Diarrhea, Nausea, Vomiting Genitourinary: Reports: No Symptoms Musculoskeletal: Reports: Leg Pain Skin: Reports: No Symptoms Neurological: Reports: No Symptoms - Patient Data Vitals - Most Recent: Last Vital Signs Temp 36.6 C 05/29/19 09:51 Pulse 61 05/29/19 09:51 Resp 16 05/29/19 09:51 BP 93/51 L 05/29/19 09:51 Pulse Ox 100 05/29/19 09:51 Weight - Most Recent: 39.463 kg I&O - Last 24 Hours: Intake & Output 05/28/19 05/29/19 05/29/19 22:59 06:59 14:59 Intake Total 1195 1000 240 Output Total 3 200 Balance 1195 997 40 Lab Results Last 24 Hours: Laboratory Results - last 24 hr 05/29/19 Range/Units 06:25 Sodium 142 (136-145) mmol/L Potassium 3.6 (3.5-5.1) mmol/L Chloride 113 H (98-107) mmol/L Carbon Dioxide 17 L (21-32) mmol/L Anion Gap 15.6 (10-20) mmol/L BUN 11 (7-18) mg/dL Creatinine 1.5 H (0.55-1.02) mg/dL Est Cr Clr Drug Dosing 29.19 mL/min Estimated GFR (MDRD) 37 Glucose 70 L (74-106) mg/dL Calcium 8.4 L (8.5-10.1) mg/dL Med Orders - Current: Current Medications Azathioprine (Imuran) 50 mg PO DAILY [facility] Last Admin: 05/29/19 07:58 Dose: 50 mg Dicyclomine HCl (Bentyl) 10 mg PO TID [facility] Last Admin: 05/29/19 12:15 Dose: 10 mg Diphenhydramine HCl (Benadryl) 25 mg PO Q4H [facility] Gabapentin (Neurontin) 500 mg PO BEDTIME [facility] Last Admin: 05/28/19 19:34 Dose: 500 mg Heparin Sodium (Porcine) (Heparin Lock Flush 100 Units/Ml) 500 units IVPUSH ASDIRECTED PRN PRN Reason: Keep Vein Open Last Admin: 05/29/19 06:34 Dose: 500 units Hydromorphone HCl (Dilaudid) 0.25 - 0.5 mg IVPUSH Q4H PRN PRN Reason: Pain Last Admin: 05/29/19 12:14 Dose: 0.5 mg Multivitamins/Minerals 10 ml/Potassium Chloride/Dextrose/Sod Cl 1,010 mls @ 100 mls/hr IV DAILY [facility] Last Admin: 05/29/19 09:22 Dose: 100 mls/hr Potassium Chloride/Dextrose/Sod Cl (D5 1/2 Ns W/ 40 Meq/L Kcl) 1,000 mls @ 100 mls/hr IV ASDIRECTED [facility] Last Admin: 05/28/19 23:57 Dose: 100 mls/hr Lidocaine/Prilocaine (Emla Crm) 0 gm TOP DAILY PRN PRN Reason: Pain Melatonin (Melatonin) 6 mg PO BEDTIME [facility] Last Admin: 05/28/19 19:35 Dose: 6 mg Methyl Salicylate (Icy Hot Cream) 0 gm TOP QID PRN PRN Reason: Pain (mild 1-3) Methylprednisolone Sodium Succinate (Solu-Medrol) 40 mg IVPUSH DAILY [facility] Last Admin: 05/29/19 09:53 Dose: 40 mg Metoclopramide HCl (Reglan) 5 mg IVPUSH Q6H PRN PRN Reason: Nausea Last Admin: 05/29/19 12:16 Dose: 5 mg Multi-Ingred Cream/Lotion/Oil/Oint (Zinc Oxide) 0 gm TOP Q2H PRN PRN Reason: RASH Own MedCreon ( Amylase/Lipase/Protease 2 Cap) 2 cap PO TIDMEALS [facility] Last Admin: 05/29/19 12:13 Dose: 2 cap Dronabinol 5 Mg Caps (Own Med) 0 mg PO BIDAC [facility] Last Admin: 05/29/19 06:35 Dose: 5 mg Hydrocortisone [ Anusol-Hc] (Own Supply) 1 applic RECTAL QID PRN PRN Reason: Itching Nystatin (Nystatin Crm) 0 gm TOP BID [facility] Last Admin: 05/29/19 08:00 Dose: 1 dose Omeprazole (Omeprazole) 40 mg PO DAILY@0700 [facility] Last Admin: 05/29/19 06:29 Dose: 40 mg Ondansetron HCl (Zofran) 4 mg IVPUSH Q6H PRN PRN Reason: Nausea Last Admin: 05/29/19 09:53 Dose: 4 mg Prochlorperazine Edisylate (Compazine) 10 mg IV TID [facility] Last Admin: 05/29/19 12:15 Dose: 10 mg Sodium Chloride (Saline Flush) 20 ml IV ASDIRECTED PRN PRN Reason: Keep Vein Open Last Admin: 05/29/19 06:34 Dose: 20 ml Sodium Chloride (Saline Flush) 10 ml FLUSH ASDIRECTED PRN PRN Reason: Keep Vein Open Last Admin: 05/29/19 03:25 Dose: 10 ml Trazodone HCl (Trazodone) 50 mg PO BEDTIME [facility] Last Admin: 05/28/19 19:34 Dose: 50 mg Vancomycin HCl (Vancomycin) 125 mg PO BID [facility] Last Admin: 05/29/19 07:57 Dose: 125 mg Discontinued Medications Diphenhydramine HCl (Benadryl) 25 mg IVPUSH Q8H PRN PRN Reason: Nausea Last Admin: 05/27/19 07:50 Dose: 25 mg Diphenhydramine HCl (Benadryl) 25 mg IVPUSH Q6H PRN PRN Reason: Nausea Last Admin: 05/29/19 10:56 Dose: 25 mg Hydromorphone HCl (Dilaudid) 0.25 mg IVPUSH Q4H PRN PRN Reason: Pain Last Admin: 05/28/19 05:53 Dose: 0.25 mg Potassium Chloride/Dextrose/Sod Cl (D5 1/2 Ns W/ 20 Meq/L Kcl) 1,000 mls @ 125 mls/hr IV ASDIRECTED [facility] Last Admin: 05/28/19 04:07 Dose: 125 mls/hr Potassium Chloride 10 meq/ (Premix) 50 mls @ 50 mls/hr IV Q1H [facility] Stop: 05/28/19 12:59 Last Admin: 05/28/19 18:27 Dose: Not Given Multivitamins/Minerals 10 ml/Potassium Chloride/Dextrose/Sod Cl 1,010 mls @ 100 mls/hr IV ASDIRECTED [facility] Last Admin: 05/28/19 11:51 Dose: 100 mls/hr Potassium Chloride/Dextrose/Sod Cl (D5 1/2 Ns W/ 40 Meq/L Kcl) 1,000 mls @ 100 mls/hr IV CONTINUOUS MARY - Exam General: Alert, Oriented, Cooperative, No Acute Distress HEENT: Mucous Membr. Moist/[place] Neck: Supple, Trachea Midline, No Thyromegaly. No: Lymphadenopathy Lungs: Clear to Auscultation, Normal Respiratory Effort Cardiovascular: Regular Rate, Regular Rhythm, No Murmurs GI/Abdominal Exam: Normal Bowel Sounds, Soft, No Organomegaly, No Distention, No Mass, Tender (diffusely but especially in the LLQ without rebound, rigidity, or guarding) Extremities: Non-Tender, No Pedal Edema, Normal Capillary Refill Peripheral Pulses: 2+: Radial (L), Radial (R) Skin: Warm, Dry, Intact - Problem List & Annotations (1) Intractable vomiting with nausea SNOMED Code(s): 647862561 Code(s): R11.2 - NAUSEA WITH VOMITING, UNSPECIFIED Status: Acute Current Visit: No (2) CHARIS (acute kidney injury) SNOMED Code(s): 83894356, 55801846 Code(s): N17.9 - ACUTE KIDNEY FAILURE, UNSPECIFIED Status: Acute Current Visit: No (3) Dehydration SNOMED Code(s): 25097879 Code(s): E86.0 - DEHYDRATION Status: Acute Current Visit: No (4) Hypokalemia SNOMED Code(s): 83344411 Code(s): E87.6 - HYPOKALEMIA Status: Acute Priority: Medium Current Visit: No (5) Chronic abdominal pain SNOMED Code(s): 247288302 Code(s): R10.9 - UNSPECIFIED ABDOMINAL PAIN; G89.29 - OTHER CHRONIC PAIN Status: Chronic Priority: Medium Current Visit: No (6) Chronic kidney disease SNOMED Code(s): 180625571 Code(s): N18.9 - CHRONIC KIDNEY DISEASE, UNSPECIFIED Status: Chronic Current Visit: No (7) Crohns disease SNOMED Code(s): 90680421 Code(s): K50.90 - CROHN'S DISEASE, UNSPECIFIED, WITHOUT COMPLICATIONS Status: Chronic Current Visit: No Qualifiers: Gastrointestinal tract location: unspecified location Digestive disease complication type: without complication Qualified Code(s): K50.90 - Crohn's disease, unspecified, without complications (8) Severe malnutrition SNOMED Code(s): 69129531 Code(s): E43 - UNSPECIFIED SEVERE PROTEIN-CALORIE MALNUTRITION Status: Chronic Current Visit: No - Problem List Review Problem List Initiated/Reviewed/Updated: Yes - My Orders Last 24 Hours: My Active Orders 05/29/19 15:00 diphenhydrAMINE [Benadryl] 25 mg PO Q4H - Assessment Assessment:: Labs are looking better. Patient symptoms minimally changed from admission. - Plan Plan:: 44 yo female with h/o recurrent admissions for dehydration and CHARIS secondary to intractable nausea and vomiting who is admitted again with the same. #1 Intractable nausea and vomiting #2 CHARIS #3 Dehydration #4 Hypokalemia - Creatinine back down to 1.5 today, which is essentially her baseline. - She is starting to feel fluid overloaded; therefore, will complete the bag that is currently hanging and then d/c IV fluids. - Will advance her diet to full liquids. - For the indication of nausea, benadryl should work just as well PO as it does IV. Therefore, will transition this to PO but schedule it at a frequency of q4 hours instead. - Continue scheduled compazine as well as PRN zofran (1st option) and reglan ( 2nd option). - Recheck labs in the am. - Will also reach out to her current GI provider to see if they can offer any other ideas on symptom management. #5 Chronic Abdominal Pain #6 Crohn's Disease #7 Severe malnutrition - Continue dilaudid PRN. - Will transition back to prednisone and d/c the solu-medrol. - As above, will reach out to GI for their thoughts. - If she continues to have little improvement, will need to consider updating a CT scan and/or transferring to [place] for further evaluation and management. #8 Chronic Kidney Disease - She will see nephrology in June. Patient will remain on acute today - will make a few changes as above and reassess tomorrow. If she continues with limited improvement, she may need transfer to [place]. Recheck labs in the am. Code status is full - discussed on admission. Continue with regular ambulation for VTE prophylaxis.
[2019-05-29] MEDS: diphenhydrAMINE 12.5 MG/5 ML Liquid 5 ML UD Cup PO SCH ×3 (14:49→22:39)
[2019-05-29] MEDS ORDERED: Cyanocobalamin (Vitamin B12) 1,000 MCG/ML SDV IM ONE (17:14)
[2019-05-29] MEDS: Gabapentin 100 MG Cap PO SCH (20:29)
[2019-05-29] MEDS: Melatonin 3 MG Tab PO SCH (20:30)
[2019-05-29] MEDS: traZODone 50 MG Tab PO SCH (20:30)
[2019-05-30] MEDS: Metoclopramide 10 MG/2 ML SDV IVPUSH PRN (01:20)
[2019-05-30] MEDS: HYDROmorphone 1 MG/ML Syringe IVPUSH PRN ×5 (01:20→20:46)
[2019-05-30] MEDS: Sodium Chloride 0.9% 10 ML Syringe IV PRN ×6 (01:30→22:50)
[2019-05-30] MEDS: diphenhydrAMINE 12.5 MG/5 ML Liquid 5 ML UD Cup PO SCH ×2 (03:21→06:03)
[2019-05-30] MEDS: DRONABINOL 5 MG PO SCH ×2 (06:03→17:12)
[2019-05-30] MEDS: Omeprazole 20 MG Cap.CR PO SCH (06:03)
[2019-05-30 07:23] LABS: ANION GAP 13.3 mmol/L (10-20)
[2019-05-30] MEDS: Prochlorperazine 10 MG/2 ML SDV IV SCH ×3 (07:55→20:41)
[2019-05-30] MEDS: Ondansetron 4 MG/2 ML SDV IVPUSH PRN ×3 (07:56→22:49)
[2019-05-30] MEDS: Vancomycin 125 MG Cap PO SCH ×2 (07:56→20:40)
[2019-05-30] MEDS: predniSONE 10 MG Tab PO SCH (07:56)
[2019-05-30] MEDS: Dicyclomine 10 MG Cap PO SCH ×3 (07:57→20:41)
[2019-05-30] MEDS: Nystatin Crm 30 GM Tube TOP SCH ×2 (07:57→22:49)
[2019-05-30] MEDS: CREON PO SCH ×3 (07:58→17:12)
[2019-05-30] MEDS ORDERED: Potassium Chloride Riders 20 MEQ in Premix Bag 1 BAG IV ONE (08:12)
[2019-05-30] MEDS ORDERED: Sodium Chloride 0.9% 1,000 ML IV SCH (08:15)
--- NOTE | 2019-05-30 08:24 | PCM.PN ---
- General Info Date of Service: 05/30/19 Subjective Update: 44 yo female hospital day #5 admitted with dehydration and CHARIS secondary to intractable nausea and vomiting. Patient does not really feel any better this morning. Continues with ongoing abdominal pain, especially in the LLQ. Had 6 loose stools overnight (decreased in frequency from yesterday) and did have 1 episode of incontinence. No blood in the stools. Larger volume than when she was having them more frequently. Continues with significant nausea as well and is vomiting an average of 3 times/ 12 hours. Is tired as she is not sleeping well and is tired of being burdened by these symptoms. Has been walking around the unit without too much difficulty. - Review of Systems General: Reports: No Symptoms HEENT: Reports: No Symptoms Pulmonary: Reports: No Symptoms Cardiovascular: Reports: No Symptoms Gastrointestinal: Reports: Abdominal Pain, Diarrhea, Nausea, Vomiting Genitourinary: Reports: No Symptoms Musculoskeletal: Reports: Joint Pain Skin: Reports: No Symptoms - Patient Data Vitals - Most Recent: Last Vital Signs Temp 36.4 C 05/30/19 06:00 Pulse 73 05/30/19 06:00 Resp 20 05/30/19 06:00 BP 102/63 05/30/19 06:00 Pulse Ox 100 05/30/19 06:00 Weight - Most Recent: 39.463 kg I&O - Last 24 Hours: Intake & Output 05/29/19 05/30/19 05/30/19 22:59 06:59 14:59 Intake Total 3137 200 Output Total 150 Balance 3137 50 Lab Results Last 24 Hours: Laboratory Results - last 24 hr 05/30/19 05/30/19 Range/Units 06:17 06:17 WBC 6.9 (4.0-10.0) x10^3/uL RBC 3.17 L (4.00-5.50) x10^6/uL Hgb 8.8 L D (12.0-16.0) g/dL Hct 28.3 L (33.0-47.0) % MCV 89.3 D (78.0-93.0) fL MCH 27.8 (26.0-32.0) pg MCHC 31.1 L (32.0-36.0) g/dL RDW Coeff of Brianda 16.0 H (10.0-15.0) % Plt Count 397 (130-400) x10^3/uL Neut % (Auto) 59.7 (50.0-80.0) % Lymph % (Auto) 29.9 (25.0-50.0) % [place] % (Auto) 8.7 (2.0-11.0) % Eos % (Auto) 1.6 (0.0-4.0) % Baso % (Auto) 0.1 L (0.2-1.2) % Sodium 145 (136-145) mmol/L Potassium 3.3 L (3.5-5.1) mmol/L Chloride 114 H (98-107) mmol/L Carbon Dioxide 21 (21-32) mmol/L Anion Gap 13.3 (10-20) mmol/L BUN 7 (7-18) mg/dL Creatinine 1.6 H (0.55-1.02) mg/dL Est Cr Clr Drug Dosing 27.37 mL/min Estimated GFR (MDRD) 35 Glucose 76 (74-106) mg/dL Calcium 8.4 L (8.5-10.1) mg/dL Corrected Calcium 9.76 (8.5-10.1) mg/dL Total Bilirubin 0.1 L (0.2-1.0) mg/dL AST 14 L (15-37) U/L ALT 25 (14-59) U/L Alkaline Phosphatase 63 (46-116) U/L Total Protein 5.1 L (6.4-8.2) g/dL Albumin 2.3 L (3.4-5.0) g/dL Globulin 2.8 Albumin/Globulin Ratio 0.82 Med Orders - Current: Current Medications Azathioprine (Imuran) 50 mg PO DAILY [facility] Last Admin: 05/30/19 07:56 Dose: 50 mg Dicyclomine HCl (Bentyl) 10 mg PO TID [facility] Last Admin: 05/30/19 07:57 Dose: 10 mg Diphenhydramine HCl (Benadryl) 50 mg PO Q4H [facility] Gabapentin (Neurontin) 500 mg PO BEDTIME [facility] Last Admin: 05/29/19 20:29 Dose: 500 mg Heparin Sodium (Porcine) (Heparin Lock Flush 100 Units/Ml) 500 units IVPUSH ASDIRECTED PRN PRN Reason: Keep Vein Open Last Admin: 05/30/19 05:35 Dose: 500 units Hydromorphone HCl (Dilaudid) 0.25 - 0.5 mg IVPUSH Q4H PRN PRN Reason: Pain Last Admin: 05/30/19 05:33 Dose: 0.5 mg Potassium Chloride 20 meq/ (Premix) 50 mls @ 50 mls/hr IV ONETIME ONE Stop: 05/30/19 09:11 Sodium Chloride (Normal Saline) 1,000 mls @ 250 mls/hr IV ASDIRECTED [facility] Stop: 05/30/19 12:16 Lidocaine/Prilocaine (Emla Crm) 0 gm TOP DAILY PRN PRN Reason: Pain Melatonin (Melatonin) 6 mg PO BEDTIME [facility] Last Admin: 05/29/19 20:30 Dose: 6 mg Methyl Salicylate (Icy Hot Cream) 0 gm TOP QID PRN PRN Reason: Pain (mild 1-3) Multi-Ingred Cream/Lotion/Oil/Oint (Zinc Oxide) 0 gm TOP Q2H PRN PRN Reason: RASH Own MedCreon ( Amylase/Lipase/Protease 2 Cap) 2 cap PO TIDMEALS [facility] Last Admin: 05/30/19 07:58 Dose: 2 cap Dronabinol 5 Mg Caps (Own Med) 0 mg PO BIDAC [facility] Last Admin: 05/30/19 06:03 Dose: 5 mg Hydrocortisone [ Anusol-Hc] (Own Supply) 1 applic RECTAL QID PRN PRN Reason: Itching Nystatin (Nystatin Crm) 0 gm TOP BID [facility] Last Admin: 05/30/19 07:57 Dose: 1 dose Omeprazole (Omeprazole) 40 mg PO DAILY@0700 [facility] Last Admin: 05/30/19 06:03 Dose: 40 mg Ondansetron HCl (Zofran) 4 mg IVPUSH Q6H PRN PRN Reason: Nausea Last Admin: 05/30/19 07:56 Dose: 4 mg Prednisone (Prednisone) 30 mg PO WITHBREAKFAST [facility] Last Admin: 05/30/19 07:56 Dose: 30 mg Prochlorperazine Edisylate (Compazine) 10 mg IV TID [facility] Last Admin: 05/30/19 07:55 Dose: 10 mg Sodium Chloride (Saline Flush) 20 ml IV ASDIRECTED PRN PRN Reason: Keep Vein Open Last Admin: 05/30/19 05:34 Dose: 20 ml Sodium Chloride (Saline Flush) 10 ml FLUSH ASDIRECTED PRN PRN Reason: Keep Vein Open Last Admin: 05/29/19 03:25 Dose: 10 ml Trazodone HCl (Trazodone) 50 mg PO BEDTIME [facility] Last Admin: 05/29/19 20:30 Dose: 50 mg Vancomycin HCl (Vancomycin) 125 mg PO BID [facility] Last Admin: 05/30/19 07:56 Dose: 125 mg Discontinued Medications Cyanocobalamin (Vitamin B12) 1,000 mcg IM ONETIME ONE Stop: 05/29/19 17:15 Last Admin: 05/29/19 17:36 Dose: 1,000 mcg Diphenhydramine HCl (Benadryl) 25 mg IVPUSH Q8H PRN PRN Reason: Nausea Last Admin: 05/27/19 07:50 Dose: 25 mg Diphenhydramine HCl (Benadryl) 25 mg IVPUSH Q6H PRN PRN Reason: Nausea Last Admin: 05/29/19 10:56 Dose: 25 mg Diphenhydramine HCl (Benadryl) 25 mg PO Q4H [facility] Last Admin: 05/30/19 06:03 Dose: 25 mg Hydromorphone HCl (Dilaudid) 0.25 mg IVPUSH Q4H PRN PRN Reason: Pain Last Admin: 05/28/19 05:53 Dose: 0.25 mg Potassium Chloride/Dextrose/Sod Cl (D5 1/2 Ns W/ 20 Meq/L Kcl) 1,000 mls @ 125 mls/hr IV ASDIRECTED [facility] Last Admin: 05/28/19 04:07 Dose: 125 mls/hr Potassium Chloride 10 meq/ (Premix) 50 mls @ 50 mls/hr IV Q1H [facility] Stop: 05/28/19 12:59 Last Admin: 05/28/19 18:27 Dose: Not Given Multivitamins/Minerals 10 ml/Potassium Chloride/Dextrose/Sod Cl 1,010 mls @ 100 mls/hr IV ASDIRECTED [facility] Last Admin: 05/28/19 11:51 Dose: 100 mls/hr Multivitamins/Minerals 10 ml/Potassium Chloride/Dextrose/Sod Cl 1,010 mls @ 100 mls/hr IV DAILY [facility] Last Admin: 05/29/19 09:22 Dose: 100 mls/hr Potassium Chloride/Dextrose/Sod Cl (D5 1/2 Ns W/ 40 Meq/L Kcl) 1,000 mls @ 100 mls/hr IV CONTINUOUS [facility] Potassium Chloride/Dextrose/Sod Cl (D5 1/2 Ns W/ 40 Meq/L Kcl) 1,000 mls @ 100 mls/hr IV ASDIRECTED [facility] Last Admin: 05/28/19 23:57 Dose: 100 mls/hr Methylprednisolone Sodium Succinate (Solu-Medrol) 40 mg IVPUSH DAILY [facility] Last Admin: 05/29/19 09:53 Dose: 40 mg Metoclopramide HCl (Reglan) 5 mg IVPUSH Q6H PRN PRN Reason: Nausea Last Admin: 05/30/19 01:20 Dose: 5 mg - Exam General: Alert, Oriented, Cooperative, No Acute Distress HEENT: Mucous Membr. Moist/[place] Neck: Supple, Trachea Midline, No Thyromegaly. No: Lymphadenopathy Lungs: Clear to Auscultation, Normal Respiratory Effort Cardiovascular: Regular Rate, Regular Rhythm, No Murmurs GI/Abdominal Exam: Normal Bowel Sounds, Soft, No Organomegaly, No Distention, No Mass, Tender (diffusely (especially LLQ) without rebound, rigidity, or guarding) Extremities: Non-Tender, No Pedal Edema, Normal Capillary Refill Peripheral Pulses: 2+: Radial (L), Radial (R) Skin: Warm, Dry, Intact Neurological: No New Focal Deficit - Problem List & Annotations (1) Intractable vomiting with nausea SNOMED Code(s): 077212995 Code(s): R11.2 - NAUSEA WITH VOMITING, UNSPECIFIED Status: Acute Current Visit: No (2) CHARIS (acute kidney injury) SNOMED Code(s): 78310356, 23202300 Code(s): N17.9 - ACUTE KIDNEY FAILURE, UNSPECIFIED Status: Acute Current Visit: No (3) Dehydration SNOMED Code(s): 39412963 Code(s): E86.0 - DEHYDRATION Status: Acute Current Visit: No (4) Hypokalemia SNOMED Code(s): 25671880 Code(s): E87.6 - HYPOKALEMIA Status: Acute Priority: Medium Current Visit: No (5) Chronic abdominal pain SNOMED Code(s): 771145484 Code(s): R10.9 - UNSPECIFIED ABDOMINAL PAIN; G89.29 - OTHER CHRONIC PAIN Status: Chronic Priority: Medium Current Visit: No (6) Chronic kidney disease SNOMED Code(s): 119269889 Code(s): N18.9 - CHRONIC KIDNEY DISEASE, UNSPECIFIED Status: Chronic Current Visit: No (7) Crohns disease SNOMED Code(s): 67887640 Code(s): K50.90 - CROHN'S DISEASE, UNSPECIFIED, WITHOUT COMPLICATIONS Status: Chronic Current Visit: No Qualifiers: Gastrointestinal tract location: unspecified location Digestive disease complication type: without complication Qualified Code(s): K50.90 - Crohn's disease, unspecified, without complications (8) Severe malnutrition SNOMED Code(s): 78120404 Code(s): E43 - UNSPECIFIED SEVERE PROTEIN-CALORIE MALNUTRITION Status: Chronic Current Visit: No - Problem List Review Problem List Initiated/Reviewed/Updated: Yes - My Orders Last 24 Hours: My Active Orders 05/29/19 Dinner Full Liquid Diet [DIET] 05/30/19 08:00 predniSONE 30 mg PO WITHBREAKFAST 05/30/19 08:12 Potassium Chloride Riders [KCL 20 MEQ in Water 50 ML] 20 meq Premix Bag 1 bag IV ONETIME 05/30/19 08:15 Sodium Chloride 0.9% [Normal Saline] 1,000 ml IV ASDIRECTED 05/30/19 10:00 diphenhydrAMINE [Benadryl] 50 mg PO Q4H 05/31/19 05:11 BASIC METABOLIC PANEL,BMP [CHEM] Routine CBC WITH AUTO DIFF [HEME] Routine - Assessment Assessment:: Labs slightly worse today. Patient symptoms are stable since admission overall, slightly worse today than yesterday. - Plan Plan:: 44 yo female with h/o recurrent admissions for dehydration and CHARIS secondary to intractable nausea and vomiting who is admitted again with the same. #1 Intractable nausea and vomiting #2 CHARIS #3 Dehydration #4 Hypokalemia - Creatinine 1.6 today, which is very near her baseline. - Will do 1 L of IV fluids with a 20 mEq K-rider today. - Continue full liquid diet. - Increase benadryl to 50 mg q4 hours. - Will also d/c the reglan as this does not seem to be helping the nausea and may be exacerbating the diarrhea. - Continue scheduled compazine as well as PRN zofran (1st option). - Recheck labs in the am. - It is distinctly possible that some of her nausea is secondary to her severe malnutrition. Will need to re-explore the options from a nutrition standpoint as getting her back to a normal BMI in and of itself may be helpful. #5 Chronic Abdominal Pain #6 Crohn's Disease #7 Severe malnutrition - Continue dilaudid PRN. - Continue prednisone. - If she continues to have little improvement, will need to consider updating a CT scan and/or transferring to [place] for further evaluation and management. #8 Chronic Kidney Disease - She will see nephrology in June. Patient will remain on acute today - will make a few changes as above and reassess tomorrow. If she continues with limited improvement, she may need transfer to [place]. Recheck labs in the am. Code status is full - discussed on admission. Continue with regular ambulation for VTE prophylaxis.
[2019-05-30] MEDS ORDERED: diphenhydrAMINE 12.5 MG/5 ML Liquid 5 ML UD Cup PO SCH (10:00)
--- NOTE | 2019-05-30 13:31 | PCM.SN ---
- Free Text/Narrative Note: Checked on patient this pm. She was resting comfortably in bed. Discussed with nursing who feel she is doing somewhat better today with less nausea, vomiting, and diarrhea.
[2019-05-30] MEDS: DIPHENHYDRAMINE 12.5 MG/5 ML PO SCH ×2 (17:10→20:45)
[2019-05-30] MEDS: Gabapentin 100 MG Cap PO SCH (20:40)
[2019-05-30] MEDS: traZODone 50 MG Tab PO SCH (20:40)
[2019-05-30] MEDS: Melatonin 3 MG Tab PO SCH (20:40)
[2019-05-30] MEDS: Sodium Chloride 0.9% 10 ML Syringe FLUSH PRN (20:47)
[2019-05-31] MEDS: DIPHENHYDRAMINE 12.5 MG/5 ML PO SCH ×6 (00:22→19:19)
[2019-05-31] MEDS: HYDROmorphone 1 MG/ML Syringe IVPUSH PRN ×6 (00:24→20:30)
[2019-05-31] MEDS: Sodium Chloride 0.9% 10 ML Syringe IV PRN ×3 (04:29→20:31)
[2019-05-31] MEDS: Omeprazole 20 MG Cap.CR PO SCH (06:17)
[2019-05-31] MEDS: DRONABINOL 5 MG PO SCH ×2 (06:18→16:34)
[2019-05-31 06:48] LABS: ANION GAP 11.3 mmol/L (10-20)
[2019-05-31] MEDS: Prochlorperazine 10 MG/2 ML SDV IV SCH ×3 (08:05→19:21)
[2019-05-31] MEDS: Vancomycin 125 MG Cap PO SCH ×2 (08:10→19:20)
[2019-05-31] MEDS: predniSONE 10 MG Tab PO SCH (08:10)
[2019-05-31] MEDS: Nystatin Crm 30 GM Tube TOP SCH ×2 (08:11→20:30)
[2019-05-31] MEDS: CREON PO SCH ×3 (08:12→17:51)
[2019-05-31] MEDS: Dicyclomine 10 MG Cap PO SCH ×3 (08:13→19:20)
--- NOTE | 2019-05-31 11:37 | PCM.PN ---
- General Info Date of Service: 05/31/19 Subjective Update: 44 yo female hospital day #6 admitted with dehydration and acute on chronic kidney failure secondary to intractable nausea and vomiting. She has slept much better and gotten some rest over the past 24 hours but does not feel anything else has changed. She continues with the abdominal pain, the persistent diarrhea (although stating now this is more mucus than actual stools most of the time), and persistent nausea. She states she has vomited 7 times in the past 24 hours. She cannot say that much is improved since admission. - Review of Systems General: Reports: No Symptoms HEENT: Reports: No Symptoms Pulmonary: Reports: No Symptoms Cardiovascular: Reports: No Symptoms Gastrointestinal: Reports: Abdominal Pain, Diarrhea, Nausea, Vomiting Genitourinary: Reports: No Symptoms Musculoskeletal: Reports: Joint Pain Skin: Reports: No Symptoms - Patient Data Vitals - Most Recent: Last Vital Signs Temp 36.9 C 05/31/19 10:00 Pulse 72 05/31/19 06:00 Resp 16 05/31/19 10:00 BP 96/57 L 05/31/19 10:00 Pulse Ox 100 05/31/19 10:00 Weight - Most Recent: 39.463 kg I&O - Last 24 Hours: Intake & Output 05/30/19 05/31/19 05/31/19 22:59 06:59 14:59 Intake Total 1360 1800 360 Balance 1360 1800 360 Lab Results Last 24 Hours: Laboratory Results - last 24 hr 05/31/19 05/31/19 Range/Units 06:12 06:12 WBC 6.8 (4.0-10.0) x10^3/uL RBC 3.37 L (4.00-5.50) x10^6/uL Hgb 9.3 L (12.0-16.0) g/dL Hct 29.9 L (33.0-47.0) % MCV 88.7 (78.0-93.0) fL MCH 27.6 (26.0-32.0) pg MCHC 31.1 L (32.0-36.0) g/dL RDW Coeff of Brianda 16.1 H (10.0-15.0) % Plt Count 397 (130-400) x10^3/uL Neut % (Auto) 60.3 (50.0-80.0) % Lymph % (Auto) 27.8 (25.0-50.0) % [place] % (Auto) 8.4 (2.0-11.0) % Eos % (Auto) 3.1 (0.0-4.0) % Baso % (Auto) 0.4 (0.2-1.2) % Sodium 142 (136-145) mmol/L Potassium 3.3 L (3.5-5.1) mmol/L Chloride 111 H (98-107) mmol/L Carbon Dioxide 23 (21-32) mmol/L Anion Gap 11.3 (10-20) mmol/L BUN 7 (7-18) mg/dL Creatinine 1.8 H (0.55-1.02) mg/dL Est Cr Clr Drug Dosing 24.33 mL/min Estimated GFR (MDRD) 30 Glucose 63 L (74-106) mg/dL Calcium 8.3 L (8.5-10.1) mg/dL Med Orders - Current: Current Medications Azathioprine (Imuran) 50 mg PO DAILY [facility] Last Admin: 05/31/19 08:10 Dose: 50 mg Dicyclomine HCl (Bentyl) 10 mg PO TID [facility] Last Admin: 05/31/19 08:13 Dose: 10 mg Diphenhydramine HCl (Benadryl) 50 mg PO Q4H [facility] Last Admin: 05/31/19 08:08 Dose: 50 mg Gabapentin (Neurontin) 500 mg PO BEDTIME [facility] Last Admin: 05/30/19 20:40 Dose: 500 mg Heparin Sodium (Porcine) (Heparin Lock Flush 100 Units/Ml) 500 units IVPUSH ASDIRECTED PRN PRN Reason: Keep Vein Open Last Admin: 05/31/19 06:17 Dose: 500 units Hydromorphone HCl (Dilaudid) 0.25 - 0.5 mg IVPUSH Q4H PRN PRN Reason: Pain Last Admin: 05/31/19 08:39 Dose: 0.5 mg Lactated Ringer's (Ringers, Lactated) 1,000 mls @ 100 mls/hr IV ASDIRECTED [facility] Lidocaine/Prilocaine (Emla Crm) 0 gm TOP DAILY PRN PRN Reason: Pain Melatonin (Melatonin) 6 mg PO BEDTIME [facility] Last Admin: 05/30/19 20:40 Dose: 6 mg Methyl Salicylate (Icy Hot Cream) 0 gm TOP QID PRN PRN Reason: Pain (mild 1-3) Multi-Ingred Cream/Lotion/Oil/Oint (Zinc Oxide) 0 gm TOP Q2H PRN PRN Reason: RASH Own MedCreon ( Amylase/Lipase/Protease 2 Cap) 2 cap PO TIDMEALS [facility] Last Admin: 05/31/19 08:12 Dose: 2 cap Dronabinol 5 Mg Caps (Own Med) 0 mg PO BIDAC [facility] Last Admin: 05/31/19 06:18 Dose: 5 mg Hydrocortisone [ Anusol-Hc] (Own Supply) 1 applic RECTAL QID PRN PRN Reason: Itching Nystatin (Nystatin Crm) 0 gm TOP BID [facility] Last Admin: 05/31/19 08:11 Dose: 1 dose Omeprazole (Omeprazole) 40 mg PO DAILY@0700 [facility] Last Admin: 05/31/19 06:17 Dose: 40 mg Ondansetron HCl (Zofran) 4 mg IVPUSH Q6H PRN PRN Reason: Nausea Last Admin: 05/30/19 22:49 Dose: 4 mg Prednisone (Prednisone) 30 mg PO WITHBREAKFAST [facility] Last Admin: 05/31/19 08:10 Dose: 30 mg Prochlorperazine Edisylate (Compazine) 10 mg IV TID [facility] Last Admin: 05/31/19 08:05 Dose: 10 mg Sodium Chloride (Saline Flush) 20 ml IV ASDIRECTED PRN PRN Reason: Keep Vein Open Last Admin: 05/31/19 06:17 Dose: 20 ml Sodium Chloride (Saline Flush) 10 ml FLUSH ASDIRECTED PRN PRN Reason: Keep Vein Open Last Admin: 05/30/19 20:47 Dose: 10 ml Trazodone HCl (Trazodone) 50 mg PO BEDTIME [facility] Last Admin: 05/30/19 20:40 Dose: 50 mg Vancomycin HCl (Vancomycin) 125 mg PO BID [facility] Last Admin: 05/31/19 08:10 Dose: 125 mg Discontinued Medications Cyanocobalamin (Vitamin B12) 1,000 mcg IM ONETIME ONE Stop: 05/29/19 17:15 Last Admin: 05/29/19 17:36 Dose: 1,000 mcg Diphenhydramine HCl (Benadryl) 25 mg IVPUSH Q8H PRN PRN Reason: Nausea Last Admin: 05/27/19 07:50 Dose: 25 mg Diphenhydramine HCl (Benadryl) 25 mg IVPUSH Q6H PRN PRN Reason: Nausea Last Admin: 05/29/19 10:56 Dose: 25 mg Diphenhydramine HCl (Benadryl) 25 mg PO Q4H [facility] Last Admin: 05/30/19 06:03 Dose: 25 mg Diphenhydramine HCl (Benadryl) 50 mg PO Q4H [facility] Last Admin: 05/30/19 11:49 Dose: 50 mg Hydromorphone HCl (Dilaudid) 0.25 mg IVPUSH Q4H PRN PRN Reason: Pain Last Admin: 05/28/19 05:53 Dose: 0.25 mg Potassium Chloride/Dextrose/Sod Cl (D5 1/2 Ns W/ 20 Meq/L Kcl) 1,000 mls @ 125 mls/hr IV ASDIRECTED [facility] Last Admin: 05/28/19 04:07 Dose: 125 mls/hr Potassium Chloride 10 meq/ (Premix) 50 mls @ 50 mls/hr IV Q1H [facility] Stop: 05/28/19 12:59 Last Admin: 05/28/19 18:27 Dose: Not Given Multivitamins/Minerals 10 ml/Potassium Chloride/Dextrose/Sod Cl 1,010 mls @ 100 mls/hr IV ASDIRECTED [facility] Last Admin: 05/28/19 11:51 Dose: 100 mls/hr Multivitamins/Minerals 10 ml/Potassium Chloride/Dextrose/Sod Cl 1,010 mls @ 100 mls/hr IV DAILY [facility] Last Admin: 05/29/19 09:22 Dose: 100 mls/hr Potassium Chloride/Dextrose/Sod Cl (D5 1/2 Ns W/ 40 Meq/L Kcl) 1,000 mls @ 100 mls/hr IV CONTINUOUS [facility] Potassium Chloride/Dextrose/Sod Cl (D5 1/2 Ns W/ 40 Meq/L Kcl) 1,000 mls @ 100 mls/hr IV ASDIRECTED [facility] Last Admin: 05/28/19 23:57 Dose: 100 mls/hr Potassium Chloride 20 meq/ (Premix) 50 mls @ 50 mls/hr IV ONETIME ONE Stop: 05/30/19 09:11 Last Admin: 05/30/19 08:35 Dose: 50 mls/hr Sodium Chloride (Normal Saline) 1,000 mls @ 250 mls/hr IV ASDIRECTED [facility] Stop: 05/30/19 12:16 Last Admin: 05/30/19 08:49 Dose: 250 mls/hr Methylprednisolone Sodium Succinate (Solu-Medrol) 40 mg IVPUSH DAILY [facility] Last Admin: 05/29/19 09:53 Dose: 40 mg Metoclopramide HCl (Reglan) 5 mg IVPUSH Q6H PRN PRN Reason: Nausea Last Admin: 05/30/19 01:20 Dose: 5 mg - Exam General: Alert, Cooperative, No Acute Distress HEENT: Mucous Membr. Moist/[place] Neck: Supple, Trachea Midline, No Thyromegaly. No: Lymphadenopathy Lungs: Clear to Auscultation, Normal Respiratory Effort Cardiovascular: Regular Rate, Regular Rhythm, No Murmurs GI/Abdominal Exam: Normal Bowel Sounds, Soft, No Organomegaly, No Distention, No Mass, Tender (diffusely without rebound, rigidity, or guarding) Extremities: Non-Tender, No Pedal Edema, Normal Capillary Refill Peripheral Pulses: 2+: Brachial (R), Radial (L) Skin: Warm, Dry, Intact - Problem List & Annotations (1) Intractable vomiting with nausea SNOMED Code(s): 509823159 Code(s): R11.2 - NAUSEA WITH VOMITING, UNSPECIFIED Status: Acute Current Visit: No (2) CHARIS (acute kidney injury) SNOMED Code(s): 87287704, 59381270 Code(s): N17.9 - ACUTE KIDNEY FAILURE, UNSPECIFIED Status: Acute Current Visit: No (3) Dehydration SNOMED Code(s): 51643157 Code(s): E86.0 - DEHYDRATION Status: Acute Current Visit: No (4) Hypokalemia SNOMED Code(s): 10189568 Code(s): E87.6 - HYPOKALEMIA Status: Acute Priority: Medium Current Visit: No (5) Chronic abdominal pain SNOMED Code(s): 695993535 Code(s): R10.9 - UNSPECIFIED ABDOMINAL PAIN; G89.29 - OTHER CHRONIC PAIN Status: Chronic Priority: Medium Current Visit: No (6) Chronic kidney disease SNOMED Code(s): 951153929 Code(s): N18.9 - CHRONIC KIDNEY DISEASE, UNSPECIFIED Status: Chronic Current Visit: No (7) Crohns disease SNOMED Code(s): 44286225 Code(s): K50.90 - CROHN'S DISEASE, UNSPECIFIED, WITHOUT COMPLICATIONS Status: Chronic Current Visit: No Qualifiers: Gastrointestinal tract location: unspecified location Digestive disease complication type: without complication Qualified Code(s): K50.90 - Crohn's disease, unspecified, without complications (8) Severe malnutrition SNOMED Code(s): 37225481 Code(s): E43 - UNSPECIFIED SEVERE PROTEIN-CALORIE MALNUTRITION Status: Chronic Current Visit: No - Problem List Review Problem List Initiated/Reviewed/Updated: Yes - My Orders Last 24 Hours: My Active Orders 05/30/19 16:00 diphenhydrAMINE [Benadryl] 50 mg PO Q4H 05/31/19 11:45 Lactated Ringers @ 100 MLS/HR(1,000ml) Lactated Ringers [Ringers, Lactated] 1, 000 ml IV ASDIRECTED 06/01/19 05:11 BASIC METABOLIC PANEL,BMP [CHEM] Routine CBC WITH AUTO DIFF [HEME] Routine - Assessment Assessment:: Labs worse yet today; patient symptoms remain about the same since admission. - Plan Plan:: 44 yo female with h/o recurrent admissions for dehydration and CHARIS secondary to intractable nausea and vomiting who is admitted again with the same. #1 Intractable nausea and vomiting #2 CHARIS #3 Dehydration #4 Hypokalemia - Creatinine up to 1.8 today - Will do LR @ 100 cc/hr through today and tonight and then recheck labs again in the morning. - Continue full liquid diet. - Continue scheduled benadryl and compazine as well as PRN zofran (1st option). - Recheck labs in the am. - It is distinctly possible that some of her nausea is secondary to her severe malnutrition. This was discussed with her today and she is willing to reconsider TPN. Discussed need to transfer to [place] if this was going to be initiated. Will reassess tomorrow for possible transfer. #5 Chronic Abdominal Pain #6 Crohn's Disease #7 Severe malnutrition - Continue dilaudid PRN. - Continue prednisone. - If she continues to have little improvement, will need to consider updating a CT scan and/or transferring to [place] for further evaluation and management. #8 Chronic Kidney Disease - She will see nephrology in June. Patient will remain on acute today as she is not able to stay hydrated on her own. Will make minor changes as above and recheck labs in the am. She has been admitted for >96 hours; however, it is unlikely they would do anything differently in [place] at this point and they are also at capacity in [place] as well. Will reassess this tomorrow if she is not improving. Will add heparin for VTE prophylaxis. Code status is full - discussed on admission.
[2019-05-31] MEDS: Heparin Sodium 5,000 Units/ML Vial SUBCUT SCH ×2 (12:59→19:20)
[2019-05-31] MEDS: Lactated Ringers 1,000 ML IV SCH ×2 (13:02→23:07)
[2019-05-31] MEDS: Gabapentin 100 MG Cap PO SCH (19:19)
[2019-05-31] MEDS: Melatonin 3 MG Tab PO SCH (19:19)
[2019-05-31] MEDS: traZODone 50 MG Tab PO SCH (19:20)
[2019-06-01] MEDS: HYDROmorphone 1 MG/ML Syringe IVPUSH PRN ×5 (00:30→19:28)
[2019-06-01] MEDS: Sodium Chloride 0.9% 10 ML Syringe IV PRN ×3 (00:31→19:29)
[2019-06-01] MEDS: DIPHENHYDRAMINE 12.5 MG/5 ML PO SCH ×3 (00:32→08:24)
[2019-06-01] MEDS: DRONABINOL 5 MG PO SCH ×2 (06:32→17:18)
[2019-06-01] MEDS: Omeprazole 20 MG Cap.CR PO SCH (06:32)
[2019-06-01 07:05] LABS: ANION GAP 11.5 mmol/L (10-20)
[2019-06-01] MEDS: predniSONE 10 MG Tab PO SCH (08:23)
[2019-06-01] MEDS: Heparin Sodium 5,000 Units/ML Vial SUBCUT SCH ×2 (08:23→19:44)
[2019-06-01] MEDS: Vancomycin 125 MG Cap PO SCH ×2 (08:23→19:45)
[2019-06-01] MEDS: Dicyclomine 10 MG Cap PO SCH ×3 (08:24→19:45)
[2019-06-01] MEDS: CREON PO SCH ×3 (08:26→17:19)
[2019-06-01] MEDS: Nystatin Crm 30 GM Tube TOP SCH ×2 (08:27→19:45)
[2019-06-01] MEDS ORDERED: Acetaminophen 325 MG Tab PO SCH (08:30)
[2019-06-01] MEDS: Prochlorperazine 5 MG Tab PO SCH ×2 (08:35→16:13)
[2019-06-01] MEDS: Prochlorperazine 10 MG/2 ML SDV IV SCH (08:39)
[2019-06-01] MEDS ORDERED: Iopamidol 612 MG/ML 100 ML Bottle IVPUSH ONE (08:41)
--- NOTE | 2019-06-01 08:44 | PCM.PN ---
- General Info Date of Service: 06/01/19 Subjective Update: 44 yo female hospital day #7 admitted with dehydration and CHARIS secondary to intractable nausea and vomiting as well as abdominal pain and diarrhea. Is feeling about 30% better today from the nausea perspective. Only vomited 4 times yesterday and was able to keep down more food and liquids. She is still having significant abdominal as well as frequent mucous containing stools. She still has a headache and states she would usually take tylenol for this; I did intend to add the tylenol back yesterday but inadvertently did not do so. - Review of Systems General: Reports: No Symptoms HEENT: Reports: No Symptoms Pulmonary: Reports: No Symptoms Cardiovascular: Reports: No Symptoms Gastrointestinal: Reports: Abdominal Pain, Diarrhea, Nausea, Vomiting Genitourinary: Reports: No Symptoms Musculoskeletal: Reports: No Symptoms Skin: Reports: No Symptoms Neurological: Reports: Headache - Patient Data Vitals - Most Recent: Last Vital Signs Temp 36.6 C 06/01/19 05:02 Pulse 79 06/01/19 05:02 Resp 18 06/01/19 05:02 BP 110/67 06/01/19 05:02 Pulse Ox 98 06/01/19 05:02 Weight - Most Recent: 39.463 kg I&O - Last 24 Hours: Intake & Output 05/31/19 06/01/19 06/01/19 22:59 06:59 14:59 Intake Total 1574 1820 Output Total 1800 Balance 1574 20 Lab Results Last 24 Hours: Laboratory Results - last 24 hr 06/01/19 06/01/19 Range/Units 06:18 06:18 WBC 6.2 (4.0-10.0) x10^3/uL RBC 3.39 L (4.00-5.50) x10^6/uL Hgb 9.4 L (12.0-16.0) g/dL Hct 29.8 L (33.0-47.0) % MCV 87.9 (78.0-93.0) fL MCH 27.7 (26.0-32.0) pg MCHC 31.5 L (32.0-36.0) g/dL RDW Coeff of Brianda 15.8 H (10.0-15.0) % Plt Count 433 H (130-400) x10^3/uL Neut % (Auto) 60.7 (50.0-80.0) % Lymph % (Auto) 26.8 (25.0-50.0) % Dickson % (Auto) 8.3 (2.0-11.0) % Eos % (Auto) 3.7 (0.0-4.0) % Baso % (Auto) 0.5 (0.2-1.2) % Sodium 141 (136-145) mmol/L Potassium 3.5 (3.5-5.1) mmol/L Chloride 108 H (98-107) mmol/L Carbon Dioxide 25 (21-32) mmol/L Anion Gap 11.5 (10-20) mmol/L BUN 6 L (7-18) mg/dL Creatinine 1.7 H (0.55-1.02) mg/dL Est Cr Clr Drug Dosing 25.76 mL/min Estimated GFR (MDRD) 32 Glucose 63 L (74-106) mg/dL Calcium 8.1 L (8.5-10.1) mg/dL Med Orders - Current: Current Medications Acetaminophen (Tylenol) 650 mg PO Q6H [facility] Azathioprine (Imuran) 50 mg PO DAILY [facility] Last Admin: 06/01/19 08:23 Dose: 50 mg Dicyclomine HCl (Bentyl) 10 mg PO TID [facility] Last Admin: 06/01/19 08:24 Dose: 10 mg Diphenhydramine HCl (Benadryl) 50 mg PO Q4H [facility] Last Admin: 06/01/19 08:24 Dose: 50 mg Gabapentin (Neurontin) 500 mg PO BEDTIME [facility] Last Admin: 05/31/19 19:19 Dose: 500 mg Heparin Sodium (Porcine) (Heparin Lock Flush 100 Units/Ml) 500 units IVPUSH ASDIRECTED PRN PRN Reason: Keep Vein Open Last Admin: 05/31/19 11:51 Dose: 500 units Heparin Sodium (Porcine) (Heparin Sodium) 5,000 units SUBCUT BID [facility] Last Admin: 06/01/19 08:23 Dose: 5,000 units Hydromorphone HCl (Dilaudid) 0.25 - 0.5 mg IVPUSH Q4H PRN PRN Reason: Pain Last Admin: 06/01/19 04:39 Dose: 0.5 mg Lactated Ringer's (Ringers, Lactated) 1,000 mls @ 100 mls/hr IV ASDIRECTED [facility] Last Admin: 05/31/19 23:07 Dose: 100 mls/hr Lidocaine/Prilocaine (Emla Crm) 0 gm TOP DAILY PRN PRN Reason: Pain Melatonin (Melatonin) 6 mg PO BEDTIME [facility] Last Admin: 05/31/19 19:19 Dose: 6 mg Methyl Salicylate (Icy Hot Cream) 0 gm TOP QID PRN PRN Reason: Pain (mild 1-3) Multi-Ingred Cream/Lotion/Oil/Oint (Zinc Oxide) 0 gm TOP Q2H PRN PRN Reason: RASH Own MedCreon ( Amylase/Lipase/Protease 2 Cap) 2 cap PO TIDMEALS [facility] Last Admin: 06/01/19 08:26 Dose: 2 cap Dronabinol 5 Mg Caps (Own Med) 0 mg PO BIDAC [facility] Last Admin: 06/01/19 06:32 Dose: 5 mg Hydrocortisone [ Anusol-Hc] (Own Supply) 1 applic RECTAL QID PRN PRN Reason: Itching Nystatin (Nystatin Crm) 0 gm TOP BID [facility] Last Admin: 06/01/19 08:27 Dose: 1 dose Omeprazole (Omeprazole) 40 mg PO DAILY@0700 [facility] Last Admin: 06/01/19 06:32 Dose: 40 mg Ondansetron HCl (Zofran) 4 mg IVPUSH Q6H PRN PRN Reason: Nausea Last Admin: 05/30/19 22:49 Dose: 4 mg Prednisone (Prednisone) 30 mg PO WITHBREAKFAST [facility] Last Admin: 06/01/19 08:23 Dose: 30 mg Prochlorperazine Maleate (Compazine) 10 mg PO Q8H [facility] Sodium Chloride (Saline Flush) 20 ml IV ASDIRECTED PRN PRN Reason: Keep Vein Open Last Admin: 06/01/19 04:39 Dose: 20 ml Sodium Chloride (Saline Flush) 10 ml FLUSH ASDIRECTED PRN PRN Reason: Keep Vein Open Last Admin: 05/30/19 20:47 Dose: 10 ml Trazodone HCl (Trazodone) 50 mg PO BEDTIME [facility] Last Admin: 05/31/19 19:20 Dose: 50 mg Vancomycin HCl (Vancomycin) 125 mg PO BID [facility] Last Admin: 06/01/19 08:23 Dose: 125 mg Discontinued Medications Cyanocobalamin (Vitamin B12) 1,000 mcg IM ONETIME ONE Stop: 05/29/19 17:15 Last Admin: 05/29/19 17:36 Dose: 1,000 mcg Diphenhydramine HCl (Benadryl) 25 mg IVPUSH Q8H PRN PRN Reason: Nausea Last Admin: 05/27/19 07:50 Dose: 25 mg Diphenhydramine HCl (Benadryl) 25 mg IVPUSH Q6H PRN PRN Reason: Nausea Last Admin: 05/29/19 10:56 Dose: 25 mg Diphenhydramine HCl (Benadryl) 25 mg PO Q4H [facility] Last Admin: 05/30/19 06:03 Dose: 25 mg Diphenhydramine HCl (Benadryl) 50 mg PO Q4H [facility] Last Admin: 05/30/19 11:49 Dose: 50 mg Hydromorphone HCl (Dilaudid) 0.25 mg IVPUSH Q4H PRN PRN Reason: Pain Last Admin: 05/28/19 05:53 Dose: 0.25 mg Potassium Chloride/Dextrose/Sod Cl (D5 1/2 Ns W/ 20 Meq/L Kcl) 1,000 mls @ 125 mls/hr IV ASDIRECTED [facility] Last Admin: 05/28/19 04:07 Dose: 125 mls/hr Potassium Chloride 10 meq/ (Premix) 50 mls @ 50 mls/hr IV Q1H [facility] Stop: 05/28/19 12:59 Last Admin: 05/28/19 18:27 Dose: Not Given Multivitamins/Minerals 10 ml/Potassium Chloride/Dextrose/Sod Cl 1,010 mls @ 100 mls/hr IV ASDIRECTED [facility] Last Admin: 05/28/19 11:51 Dose: 100 mls/hr Multivitamins/Minerals 10 ml/Potassium Chloride/Dextrose/Sod Cl 1,010 mls @ 100 mls/hr IV DAILY [facility] Last Admin: 05/29/19 09:22 Dose: 100 mls/hr Potassium Chloride/Dextrose/Sod Cl (D5 1/2 Ns W/ 40 Meq/L Kcl) 1,000 mls @ 100 mls/hr IV CONTINUOUS [facility] Potassium Chloride/Dextrose/Sod Cl (D5 1/2 Ns W/ 40 Meq/L Kcl) 1,000 mls @ 100 mls/hr IV ASDIRECTED [facility] Last Admin: 05/28/19 23:57 Dose: 100 mls/hr Potassium Chloride 20 meq/ (Premix) 50 mls @ 50 mls/hr IV ONETIME ONE Stop: 05/30/19 09:11 Last Admin: 05/30/19 08:35 Dose: 50 mls/hr Sodium Chloride (Normal Saline) 1,000 mls @ 250 mls/hr IV ASDIRECTED [facility] Stop: 05/30/19 12:16 Last Admin: 05/30/19 08:49 Dose: 250 mls/hr Methylprednisolone Sodium Succinate (Solu-Medrol) 40 mg IVPUSH DAILY [facility] Last Admin: 05/29/19 09:53 Dose: 40 mg Metoclopramide HCl (Reglan) 5 mg IVPUSH Q6H PRN PRN Reason: Nausea Last Admin: 05/30/19 01:20 Dose: 5 mg Prochlorperazine Edisylate (Compazine) 10 mg IV TID [facility] Last Admin: 05/31/19 19:21 Dose: 10 mg - Exam General: Alert, Oriented, Cooperative, No Acute Distress HEENT: Mucous Membr. Moist/[place] Neck: Supple, Trachea Midline, No Thyromegaly. No: Lymphadenopathy Lungs: Clear to Auscultation, Normal Respiratory Effort Cardiovascular: Regular Rate, Regular Rhythm, No Murmurs GI/Abdominal Exam: Normal Bowel Sounds, Soft, No Organomegaly, No Distention, No Mass, Tender (diffusely but greatest in the lower quadrants bilaterally; no rebound, rigidity, or guarding) Extremities: Non-Tender, No Pedal Edema, Normal Capillary Refill Peripheral Pulses: 2+: Radial (L), Radial (R) Skin: Warm, Dry, Intact - Problem List & Annotations (1) Intractable vomiting with nausea SNOMED Code(s): 380992583 Code(s): R11.2 - NAUSEA WITH VOMITING, UNSPECIFIED Status: Acute Current Visit: No (2) CHARIS (acute kidney injury) SNOMED Code(s): 68300007, 53255866 Code(s): N17.9 - ACUTE KIDNEY FAILURE, UNSPECIFIED Status: Acute Current Visit: No (3) Dehydration SNOMED Code(s): 26581586 Code(s): E86.0 - DEHYDRATION Status: Acute Current Visit: No (4) Hypokalemia SNOMED Code(s): 86115948 Code(s): E87.6 - HYPOKALEMIA Status: Acute Priority: Medium Current Visit: No (5) Chronic abdominal pain SNOMED Code(s): 853961981 Code(s): R10.9 - UNSPECIFIED ABDOMINAL PAIN; G89.29 - OTHER CHRONIC PAIN Status: Chronic Priority: Medium Current Visit: No (6) Chronic kidney disease SNOMED Code(s): 091173067 Code(s): N18.9 - CHRONIC KIDNEY DISEASE, UNSPECIFIED Status: Chronic Current Visit: No (7) Crohns disease SNOMED Code(s): 08244250 Code(s): K50.90 - CROHN'S DISEASE, UNSPECIFIED, WITHOUT COMPLICATIONS Status: Chronic Current Visit: No Qualifiers: Gastrointestinal tract location: unspecified location Digestive disease complication type: without complication Qualified Code(s): K50.90 - Crohn's disease, unspecified, without complications (8) Severe malnutrition SNOMED Code(s): 74489061 Code(s): E43 - UNSPECIFIED SEVERE PROTEIN-CALORIE MALNUTRITION Status: Chronic Current Visit: No (9) Headache SNOMED Code(s): 02076935 Code(s): R51 - HEADACHE Status: Acute Current Visit: Yes Qualifiers: Headache type: unspecified Headache chronicity pattern: acute headache Intractability: not intractable Qualified Code(s): R51 - Headache - Problem List Review Problem List Initiated/Reviewed/Updated: Yes - My Orders Last 24 Hours: My Active Orders 05/31/19 11:45 Heparin Sodium 5,000 units SUBCUT BID Lactated Ringers [Ringers, Lactated] 1,000 ml IV ASDIRECTED 06/01/19 08:27 Abdomen Pelvis w Cont [CT] Routine 06/01/19 08:30 Acetaminophen [Tylenol] 650 mg PO Q6H Prochlorperazine [Compazine] 10 mg PO Q8H - Assessment Assessment:: Labs slightly improved today. Patient also finally having some improvement in nausea but no change in pain or stools. - Plan Plan:: 44 yo female with h/o recurrent admissions for dehydration and CHARIS secondary to intractable nausea and vomiting who is admitted again with the same. #1 Intractable nausea and vomiting #2 CHARIS #3 Dehydration #4 Hypokalemia - Creatinine back down to 1.7 today. Potassium is normal. - Continue LR @ 100 cc/hr. - Continue full liquid diet. - Continue scheduled benadryl and compazine (but will change from IV to PO today ) as well as PRN zofran. - Recheck labs in the am. - It is distinctly possible that some of her nausea is secondary to her severe malnutrition. Upon discussion yesterday, she was willing to reconsider TPN. As she is feeling somewhat better today, will hold off for now but will continue to reassess this. #5 Chronic Abdominal Pain #6 Crohn's Disease #7 Severe malnutrition - Continue dilaudid PRN. - Continue prednisone. - Given lack of improvement in pain and stool output over the past few days, recommend CT today for further evaluation. She is in agreement and this was ordered. #8 Chronic Kidney Disease - She will see nephrology in June. Patient will remain on acute today as she is not able to stay hydrated on her own - does finally note some improvement today. Will update CT scan today. She has been admitted for >96 hours; however, it is unlikely they would do anything differently in [place] at this point and they are also at capacity in [place] as well. As she has finally had some improvement, will hold off on transfer at this time unless indicated by CT scan findings. Will continue to assess need for transfer on a daily basis. Continue heparin for VTE prophylaxis. Code status is full - discussed on admission.
[2019-06-01] MEDS: Lactated Ringers 1,000 ML IV SCH ×2 (09:29→19:53)
[2019-06-01] MEDS: diphenhydrAMINE 12.5 MG/5 ML Liquid 5 ML UD Cup PO SCH ×2 (12:12→17:15)
[2019-06-01] MEDS: Acetaminophen 325 MG Tab PO SCH ×2 (12:13→17:16)
[2019-06-01] MEDS: Ondansetron 4 MG/2 ML SDV IVPUSH PRN (12:25)
--- NOTE | 2019-06-01 12:34 | CT ---
[id number] CT/CT Abdomen Pelvis W IV EXAM: CT Abdomen Pelvis W IV CLINICAL DATA: ABDOMINAL PAIN, DIARRHEA. COMPARISON STUDY: May 08, 2019. FINDINGS: Stomach, small bowel, and colon is fluid-filled throughout its length. Colon demonstrates diffuse wall thickening with lack of haustration, suggesting underlying colitis, possibly ulcerative colitis. Differential diagnosis includes infectious colitis. No pneumatosis or pneumoperitoneum. Small bowel wall appears diffusely enhancing. However, this is likely accentuated by negative contrast within its lumen. No evidence of wall thickening to suggest significant enteritis. Liver, spleen, pancreas, and adrenal glands are unremarkable. Gallbladder has been resected. Kidneys demonstrate numerous bilateral nonobstructing calculi measuring up to 6 mm in diameter. No ureteral calculi or evidence of ureteral obstruction Uterus and adnexal regions are unremarkable. Urinary bladder is unremarkable. IMPRESSION: Changes of proctocolitis. Appearance suggests underlying changes of ulcerative colitis, correlate with clinical history as there is sequela prior resection of the rectosigmoid junction. Differential diagnosis includes infectious colitis. GI tract is fluid-filled extending from the stomach to the rectum, which can be seen with diarrhea as well. No evidence of bowel ischemia or other complicating feature. Other findings are described above. Morgan Nye MD 06/01/19 2009 Thank you for allowing us to participate in the care of your patient.
--- NOTE | 2019-06-01 16:52 | PCM.SN ---
- Free Text/Narrative Note: CT shows focal colitis. Results reviewed with patient. She is about the same this afternoon as this morning. Discussed reassessing tomorrow. If still minimal improvement, will transfer to [place]. If she is feeling better, will tentatively plan for d/c home. She is comfortable with this plan.
[2019-06-01] MEDS: Gabapentin 100 MG Cap PO SCH (19:44)
[2019-06-01] MEDS: Melatonin 3 MG Tab PO SCH (19:44)
[2019-06-01] MEDS: traZODone 50 MG Tab PO SCH (19:45)
[2019-06-02] MEDS: diphenhydrAMINE 12.5 MG/5 ML Liquid 5 ML UD Cup PO SCH ×5 (00:23→23:39)
[2019-06-02] MEDS: Prochlorperazine 5 MG Tab PO SCH ×4 (00:24→23:41)
[2019-06-02] MEDS: Acetaminophen 325 MG Tab PO SCH ×5 (00:24→23:40)
[2019-06-02] MEDS: HYDROmorphone 1 MG/ML Syringe IVPUSH PRN ×4 (00:31→20:17)
[2019-06-02] MEDS: Sodium Chloride 0.9% 10 ML Syringe IV PRN ×3 (00:33→20:22)
[2019-06-02] MEDS: Omeprazole 20 MG Cap.CR PO SCH (06:19)
[2019-06-02] MEDS: DRONABINOL 5 MG PO SCH ×2 (06:21→17:20)
[2019-06-02] MEDS: Lactated Ringers 1,000 ML IV SCH (06:30)
[2019-06-02 07:24] LABS: ANION GAP 9.3 mmol/L (10-20)
[2019-06-02] MEDS: predniSONE 10 MG Tab PO SCH (08:09)
[2019-06-02] MEDS: Heparin Sodium 5,000 Units/ML Vial SUBCUT SCH ×2 (08:10→20:06)
[2019-06-02] MEDS: Dicyclomine 10 MG Cap PO SCH ×3 (08:10→20:05)
[2019-06-02] MEDS: Vancomycin 125 MG Cap PO SCH ×2 (08:10→20:11)
[2019-06-02] MEDS: Nystatin Crm 30 GM Tube TOP SCH ×2 (08:11→20:10)
[2019-06-02] MEDS: CREON PO SCH ×3 (08:11→17:43)
--- NOTE | 2019-06-02 08:51 | PCM.PN ---
- General Info Date of Service: 06/02/19 Subjective Update: 44 yo female hospital day #8 admitted with dehydration and CHARIS secondary to acute on chronic abdominal pain and intractable nausea and vomiting. Had increased pain last evening, which she attributes to eating cream of wheat and oatmeal for supper. Pain is now much better this morning and she is planning to stick to a more bland diet. She is wondering if cream of rice is an option since this has sat better for her in the past due to being lower in fiber. She states the IV dilaudid dosing is lasting for about 1-1.5 hours after each dose. Nausea is somewhat better today as well. Vomited less times yesterday than previous. Stools remain frequent. She is feeling more tired today. - Review of Systems General: Reports: No Symptoms HEENT: Reports: No Symptoms Pulmonary: Reports: No Symptoms Cardiovascular: Reports: No Symptoms Gastrointestinal: Reports: Abdominal Pain Genitourinary: Reports: No Symptoms Musculoskeletal: Reports: No Symptoms Skin: Reports: No Symptoms Neurological: Reports: No Symptoms - Patient Data Vitals - Most Recent: Last Vital Signs Temp 36.4 C 06/02/19 06:00 Pulse 72 06/02/19 06:00 Resp 16 06/02/19 06:00 BP 86/48 L 06/02/19 06:00 Pulse Ox 97 06/02/19 06:00 Weight - Most Recent: 39.463 kg I&O - Last 24 Hours: Intake & Output 06/01/19 06/02/19 06/02/19 22:59 06:59 14:59 Intake Total 2288 920 380 Output Total 300 4 Balance 1988 916 380 Lab Results Last 24 Hours: Laboratory Results - last 24 hr 06/02/19 06/02/19 Range/Units 06:40 06:40 WBC 5.7 (4.0-10.0) x10^3/uL RBC 3.48 L (4.00-5.50) x10^6/uL Hgb 9.6 L (12.0-16.0) g/dL Hct 30.6 L (33.0-47.0) % MCV 87.9 (78.0-93.0) fL MCH 27.6 (26.0-32.0) pg MCHC 31.4 L (32.0-36.0) g/dL RDW Coeff of Brianda 15.8 H (10.0-15.0) % Plt Count 404 H (130-400) x10^3/uL Neut % (Auto) 69.6 (50.0-80.0) % Lymph % (Auto) 21.2 L (25.0-50.0) % [place] % (Auto) 5.6 (2.0-11.0) % Eos % (Auto) 3.1 (0.0-4.0) % Baso % (Auto) 0.5 (0.2-1.2) % ESR 30 H (0-21) mm/hr Sodium 142 (136-145) mmol/L Potassium 3.3 L (3.5-5.1) mmol/L Chloride 106 (98-107) mmol/L Carbon Dioxide 30 (21-32) mmol/L Anion Gap 9.3 L (10-20) mmol/L BUN 6 L (7-18) mg/dL Creatinine 1.6 H (0.55-1.02) mg/dL Est Cr Clr Drug Dosing 27.37 mL/min Estimated GFR (MDRD) 35 Glucose 75 (74-106) mg/dL Calcium 8.2 L (8.5-10.1) mg/dL Med Orders - Current: Current Medications Acetaminophen (Tylenol) 650 mg PO Q6H [facility] Last Admin: 06/02/19 06:19 Dose: 650 mg Azathioprine (Imuran) 50 mg PO DAILY [facility] Last Admin: 06/02/19 08:10 Dose: 50 mg Dicyclomine HCl (Bentyl) 10 mg PO TID [facility] Last Admin: 06/02/19 08:10 Dose: 10 mg Diphenhydramine HCl (Benadryl) 50 mg PO Q6H [facility] Last Admin: 06/02/19 06:19 Dose: 50 mg Gabapentin (Neurontin) 500 mg PO BEDTIME [facility] Last Admin: 06/01/19 19:44 Dose: 500 mg Heparin Sodium (Porcine) (Heparin Lock Flush 100 Units/Ml) 500 units IVPUSH ASDIRECTED PRN PRN Reason: Keep Vein Open Last Admin: 05/31/19 11:51 Dose: 500 units Heparin Sodium (Porcine) (Heparin Sodium) 5,000 units SUBCUT BID [facility] Last Admin: 06/02/19 08:10 Dose: 5,000 units Lidocaine/Prilocaine ([place]mla Crm) 0 gm TOP DAILY PRN PRN Reason: Pain Melatonin (Melatonin) 6 mg PO BEDTIME [facility] Last Admin: 06/01/19 19:44 Dose: 6 mg Methyl Salicylate (Icy Hot Cream) 0 gm TOP QID PRN PRN Reason: Pain (mild 1-3) Multi-Ingred Cream/Lotion/Oil/Oint (Zinc Oxide) 0 gm TOP Q2H PRN PRN Reason: RASH Own MedCreon ( Amylase/Lipase/Protease 2 Cap) 2 cap PO TIDMEALS [facility] Last Admin: 06/02/19 08:11 Dose: 2 cap Dronabinol 5 Mg Caps (Own Med) 0 mg PO BIDAC [facility] Last Admin: 06/02/19 06:21 Dose: 5 mg Hydrocortisone [ Anusol-Hc] (Own Supply) 1 applic RECTAL QID PRN PRN Reason: Itching Nystatin (Nystatin Crm) 0 gm TOP BID [facility] Last Admin: 06/02/19 08:11 Dose: 1 dose Omeprazole (Omeprazole) 40 mg PO DAILY@0700 [facility] Last Admin: 06/02/19 06:19 Dose: 40 mg Prednisone (Prednisone) 30 mg PO WITHBREAKFAST [facility] Last Admin: 06/02/19 08:09 Dose: 30 mg Prochlorperazine Maleate (Compazine) 10 mg PO Q8H [facility] Last Admin: 06/02/19 08:09 Dose: 10 mg Sodium Chloride (Saline Flush) 20 ml IV ASDIRECTED PRN PRN Reason: Keep Vein Open Last Admin: 06/02/19 06:26 Dose: 20 ml Sodium Chloride (Saline Flush) 10 ml FLUSH ASDIRECTED PRN PRN Reason: Keep Vein Open Last Admin: 05/30/19 20:47 Dose: 10 ml Trazodone HCl (Trazodone) 50 mg PO BEDTIME [facility] Last Admin: 06/01/19 19:45 Dose: 50 mg Vancomycin HCl (Vancomycin) 125 mg PO BID [facility] Last Admin: 06/02/19 08:10 Dose: 125 mg Discontinued Medications Acetaminophen (Tylenol) 650 mg PO Q6H [facility] Last Admin: 06/01/19 08:35 Dose: 650 mg Cyanocobalamin (Vitamin B12) 1,000 mcg IM ONETIME ONE Stop: 05/29/19 17:15 Last Admin: 05/29/19 17:36 Dose: 1,000 mcg Diphenhydramine HCl (Benadryl) 25 mg IVPUSH Q8H PRN PRN Reason: Nausea Last Admin: 05/27/19 07:50 Dose: 25 mg Diphenhydramine HCl (Benadryl) 25 mg IVPUSH Q6H PRN PRN Reason: Nausea Last Admin: 05/29/19 10:56 Dose: 25 mg Diphenhydramine HCl (Benadryl) 25 mg PO Q4H [facility] Last Admin: 05/30/19 06:03 Dose: 25 mg Diphenhydramine HCl (Benadryl) 50 mg PO Q4H [facility] Last Admin: 05/30/19 11:49 Dose: 50 mg Diphenhydramine HCl (Benadryl) 50 mg PO Q4H [facility] Last Admin: 06/01/19 08:24 Dose: 50 mg Hydromorphone HCl (Dilaudid) 0.25 mg IVPUSH Q4H PRN PRN Reason: Pain Last Admin: 05/28/19 05:53 Dose: 0.25 mg Hydromorphone HCl (Dilaudid) 0.25 - 0.5 mg IVPUSH Q4H PRN PRN Reason: Pain Last Admin: 06/02/19 06:18 Dose: 0.5 mg Potassium Chloride/Dextrose/Sod Cl (D5 1/2 Ns W/ 20 Meq/L Kcl) 1,000 mls @ 125 mls/hr IV ASDIRECTED [facility] Last Admin: 05/28/19 04:07 Dose: 125 mls/hr Potassium Chloride 10 meq/ (Premix) 50 mls @ 50 mls/hr IV Q1H [facility] Stop: 05/28/19 12:59 Last Admin: 05/28/19 18:27 Dose: Not Given Multivitamins/Minerals 10 ml/Potassium Chloride/Dextrose/Sod Cl 1,010 mls @ 100 mls/hr IV ASDIRECTED [facility] Last Admin: 05/28/19 11:51 Dose: 100 mls/hr Multivitamins/Minerals 10 ml/Potassium Chloride/Dextrose/Sod Cl 1,010 mls @ 100 mls/hr IV DAILY [facility] Last Admin: 05/29/19 09:22 Dose: 100 mls/hr Potassium Chloride/Dextrose/Sod Cl (D5 1/2 Ns W/ 40 Meq/L Kcl) 1,000 mls @ 100 mls/hr IV CONTINUOUS MARY Potassium Chloride/Dextrose/Sod Cl (D5 1/2 Ns W/ 40 Meq/L Kcl) 1,000 mls @ 100 mls/hr IV ASDIRECTED [facility] Last Admin: 05/28/19 23:57 Dose: 100 mls/hr Potassium Chloride 20 meq/ (Premix) 50 mls @ 50 mls/hr IV ONETIME ONE Stop: 05/30/19 09:11 Last Admin: 05/30/19 08:35 Dose: 50 mls/hr Sodium Chloride (Normal Saline) 1,000 mls @ 250 mls/hr IV ASDIRECTED [facility] Stop: 05/30/19 12:16 Last Admin: 05/30/19 08:49 Dose: 250 mls/hr Lactated Ringer's (Ringers, Lactated) 1,000 mls @ 100 mls/hr IV ASDIRECTED [facility] Last Admin: 06/02/19 06:30 Dose: 100 mls/hr Iopamidol (Isovue-300 (61%)) 100 ml IVPUSH ONETIME ONE Stop: 06/01/19 08:42 Last Admin: 06/01/19 11:55 Dose: 100 ml Methylprednisolone Sodium Succinate (Solu-Medrol) 40 mg IVPUSH DAILY [facility] Last Admin: 05/29/19 09:53 Dose: 40 mg Metoclopramide HCl (Reglan) 5 mg IVPUSH Q6H PRN PRN Reason: Nausea Last Admin: 05/30/19 01:20 Dose: 5 mg Ondansetron HCl (Zofran) 4 mg IVPUSH Q6H PRN PRN Reason: Nausea Last Admin: 06/01/19 12:25 Dose: 4 mg Prochlorperazine Edisylate (Compazine) 10 mg IV TID [facility] Last Admin: 06/01/19 08:39 Dose: Not Given - Exam General: Alert, Cooperative, No Acute Distress HEENT: Mucous Membr. Moist/[place] Neck: Supple, Trachea Midline, No Thyromegaly. No: Lymphadenopathy Lungs: Clear to Auscultation, Normal Respiratory Effort Cardiovascular: Regular Rate, Regular Rhythm, No Murmurs GI/Abdominal Exam: Normal Bowel Sounds, Soft, No Organomegaly, No Distention, No Mass, Tender (diffusely but less so than previous days; no rebound, rigidity , or guarding) Extremities: Non-Tender, No Pedal Edema, Normal Capillary Refill Peripheral Pulses: 2+: Radial (L), Radial (R) Skin: Warm, Dry, Intact - Problem List & Annotations (1) Intractable vomiting with nausea SNOMED Code(s): 163723288 Code(s): R11.2 - NAUSEA WITH VOMITING, UNSPECIFIED Status: Acute Current Visit: No (2) CHARIS (acute kidney injury) SNOMED Code(s): 50913053, 49699448 Code(s): N17.9 - ACUTE KIDNEY FAILURE, UNSPECIFIED Status: Acute Current Visit: No (3) Dehydration SNOMED Code(s): 89843420 Code(s): E86.0 - DEHYDRATION Status: Acute Current Visit: No (4) Hypokalemia SNOMED Code(s): 84070944 Code(s): E87.6 - HYPOKALEMIA Status: Acute Priority: Medium Current Visit: No (5) Chronic abdominal pain SNOMED Code(s): 778386930 Code(s): R10.9 - UNSPECIFIED ABDOMINAL PAIN; G89.29 - OTHER CHRONIC PAIN Status: Chronic Priority: Medium Current Visit: No (6) Chronic kidney disease SNOMED Code(s): 693029767 Code(s): N18.9 - CHRONIC KIDNEY DISEASE, UNSPECIFIED Status: Chronic Current Visit: No (7) Crohns disease SNOMED Code(s): 82532073 Code(s): K50.90 - CROHN'S DISEASE, UNSPECIFIED, WITHOUT COMPLICATIONS Status: Chronic Current Visit: No Qualifiers: Gastrointestinal tract location: unspecified location Digestive disease complication type: without complication Qualified Code(s): K50.90 - Crohn's disease, unspecified, without complications (8) Severe malnutrition SNOMED Code(s): 71362425 Code(s): E43 - UNSPECIFIED SEVERE PROTEIN-CALORIE MALNUTRITION Status: Chronic Current Visit: No (9) Headache SNOMED Code(s): 75145050 Code(s): R51 - HEADACHE Status: Acute Current Visit: Yes Qualifiers: Headache type: unspecified Headache chronicity pattern: acute headache Intractability: not intractable Qualified Code(s): R51 - Headache - Problem List Review Problem List Initiated/Reviewed/Updated: Yes - My Orders Last 24 Hours: My Active Orders 06/01/19 08:30 Prochlorperazine [Compazine] 10 mg PO Q8H 06/01/19 12:00 Acetaminophen [Tylenol] 650 mg PO Q6H diphenhydrAMINE [Benadryl] 50 mg PO Q6H 06/02/19 08:47 HYDROmorphone [Dilaudid] 2 mg PO Q4H PRN Metoclopramide [Reglan] 5 mg IVPUSH Q6H PRN 06/02/19 09:00 Ondansetron [Zofran ODT] 8 mg PO Q8H - Assessment Assessment:: Labs much improved today. ESR is 30, which is the lowest it has been in quite awhile. Patient also finally having persistent improvement in symptoms. - Plan Plan:: 44 yo female with h/o recurrent admissions for dehydration and CHARIS secondary to intractable nausea and vomiting who is admitted again with the same. #1 Intractable nausea and vomiting #2 CHARIS #3 Dehydration #4 Hypokalemia - Creatinine down to 1.6 today. Potassium slightly low. - Will finish current bag of LR at a rate of @ 100 cc/hr, then d/co IV fluids. - Continue full liquid diet using caution of what she is eating. RN to talk with kitchen about better options for her. - Continue scheduled benadryl and compazine (but will change from IV to PO today ). Will also schedule zofran PO today. Will use reglan IV PRN breakthrough nausea and vomiting. - Recheck labs in the am. - It is distinctly possible that some of her nausea is secondary to her severe malnutrition. Upon discussion yesterday, she was willing to reconsider TPN. #5 Chronic Abdominal Pain #6 Crohn's Disease #7 Severe malnutrition - Continue dilaudid PRN but will transition to PO on this today as well. - ESR is not in a range consistent with a true flare of her Crohn's. CT yesterday showed some colitis but nothing else. - Continue prednisone. #8 Chronic Kidney Disease - She will see nephrology in June. Patient will remain on acute today as she is still on IV medications - she is doing better this morning than she has been though. Given persistent improvement , it does not make sense to transfer her to a higher level of care at this point. Suspect she may be prepared for dismissal as soon as tomorrow. Will talk with case management today about her situation. Will transition everything to oral today and recheck labs in the am. Continue heparin for VTE prophylaxis. Code status is full - discussed on admission.
[2019-06-02] MEDS: Ondansetron 4 MG Tab.DIS PO SCH ×3 (09:46→23:42)
[2019-06-02] MEDS: HYDROmorphone 2 MG Tab PO PRN ×3 (12:45→23:43)
--- NOTE | 2019-06-02 16:12 | PCM.SN ---
- Free Text/Narrative Note: Patient with increased cramping abdominal pain this afternoon. Not relieved by IV dilaudid. Will try flexeril as this has worked for similar pain in the past. Will do a dose of IV reglan first to treat nausea before doing a PO medication.
[2019-06-02] MEDS: Cyclobenzaprine 10 MG Tab PO PRN (16:46)
[2019-06-02] MEDS: Melatonin 3 MG Tab PO SCH (20:08)
[2019-06-02] MEDS: Gabapentin 100 MG Cap PO SCH (20:08)
[2019-06-02] MEDS: traZODone 50 MG Tab PO SCH (20:11)
[2019-06-02] MEDS: Metoclopramide 10 MG/2 ML SDV IVPUSH PRN (20:12)
[2019-06-03] MEDS: Ondansetron 4 MG Tab.DIS PO SCH ×3 (00:02→16:45)
[2019-06-03] MEDS: HYDROmorphone 1 MG/ML Syringe IVPUSH PRN ×4 (01:11→20:44)
[2019-06-03] MEDS: Sodium Chloride 0.9% 10 ML Syringe IV PRN ×2 (01:20→20:20)
[2019-06-03] MEDS: diphenhydrAMINE 12.5 MG/5 ML Liquid 5 ML UD Cup PO SCH ×4 (06:03→23:58)
[2019-06-03] MEDS: Acetaminophen 325 MG Tab PO SCH ×3 (06:03→20:24)
[2019-06-03] MEDS: DRONABINOL 5 MG PO SCH ×2 (06:05→16:45)
[2019-06-03] MEDS: Omeprazole 20 MG Cap.CR PO SCH (06:06)
[2019-06-03] MEDS: HYDROmorphone 2 MG Tab PO PRN ×2 (06:08→13:30)
[2019-06-03] MEDS: predniSONE 10 MG Tab PO SCH (07:39)
[2019-06-03] MEDS: Prochlorperazine 5 MG Tab PO SCH ×2 (07:39→16:12)
[2019-06-03] MEDS: Heparin Sodium 5,000 Units/ML Vial SUBCUT SCH ×2 (07:41→20:26)
[2019-06-03] MEDS: CREON PO SCH ×3 (07:41→19:11)
[2019-06-03] MEDS: Dicyclomine 10 MG Cap PO SCH ×3 (07:41→20:26)
[2019-06-03] MEDS: Vancomycin 125 MG Cap PO SCH ×2 (07:41→20:25)
[2019-06-03] MEDS: Nystatin Crm 30 GM Tube TOP SCH ×2 (07:44→20:26)
[2019-06-03 07:51] LABS: ANION GAP 10.1 mmol/L (10-20)
[2019-06-03] MEDS ORDERED: Sodium Chloride 0.9% with KCl 1,000 ML IV SCH (09:30)
[2019-06-03] MEDS ORDERED: Potassium Chloride Riders 20 MEQ in Premix Bag 1 BAG IV ONE (10:12)
[2019-06-03] MEDS ORDERED: Pantoprazole 40 MG Vial IVPUSH SCH ×2 (10:15→21:00)
--- NOTE | 2019-06-03 11:09 | PN ---
Progress Note for MARYSOL LORA Date: 06/03/2019 Room #: VM.211 SUBJECTIVE: Hospital day #9 on a 44-year-old admitted with intractable nausea, vomiting, and abdominal pain related to Crohn exacerbation. The patient had increased pain yesterday over the left side. She had low-grade fevers also up to 100.3. She did get some oral Flexeril and was initiated back on IV Dilaudid which helped. She otherwise had been on a clear liquid diet and attributes some of her increased pain to trying to eat some cereals. Otherwise, she has not required any antibiotics. She did get IV steroids initially. She is on Remicade, last given 2 weeks ago and azathioprine daily as well as 30 mg of prednisone. The patient does have a hard time swallowing pills. She feels her esophagus is just irritated due to the vomiting. She actually vomited while I was in the room. Everything she eats comes up about every hour. She is also having continued diarrhea 6 stools charted yesterday and 10 the day before, has not noted any blood, but did throw up a little bit of blood. The patient also has IV Reglan if needed and her last dose was given at 8 p.m. last evening. She has not had any shortness of breath, but does feel dizzy, did get just the end of her LR yesterday for fluids. She has been getting outpatient 1 L of fluid up to daily. She has had frequent recurrent readmissions. Discussion was had about TPN. The patient feels like she is ready to pursue that, but she does not want to be transferred to [place] at this point. She did have 100% meal intake so far this morning and wants to keep trying things here. OBJECTIVE: Vital Signs: Her temperature 97.8, pulse 87, blood pressure 101/47, respiratory rate 16, O2 of 98% on room air. General: She is in no acute distress, but appears tired. Heart: Regular rate and rhythm. S1, S2 without murmur. Lungs: Lung sounds are clear to auscultation bilaterally without crackles or wheezes. Abdomen: Does have positive bowel sounds. It is soft, but there is generalized tenderness, suprapubic, right lower quadrant, but worse over the left mid abdomen. Mental Status: She is alert. She is orientated x3. Extremities: Warm and dry. No edema. Her pulses are 2+ and equal. Skin: Shows no rashes or cellulitis. She does report that she had some irritation in the vinicio-area due to diarrhea and is using some nystatin. LABORATORY DATA: Lab work today does show white count 6.2; hemoglobin 9, down from 9.6; platelets 378. Sodium 141; potassium 3.1; chloride 105; bicarb 29; BUN 7; creatinine 1.6, which is stable since yesterday; calcium 7.8, magnesium 1.6. ASSESSMENT: 1. Intractable nausea, vomiting, and abdominal pain due to a Crohn exacerbation. 2. Hypokalemia. 3. Acute kidney injury. 4. Severe malnutrition. 5. Chronic abdominal pain. 6. Crohn disease. 7. Chronic kidney disease. 8. Chronic anemia. 9. Mild hypomagnesemia. 10.Dysuria. PLAN: At this point, we will do a UA today. We will give her 20 mEq IV bolus of potassium and then 40 mEq in 1 L and repeat a potassium at 4 p.m. today. We will hold off on any IV magnesium, repeat tomorrow as this could worsen her diarrhea. We will switch her Protonix over to IV due to esophageal irritation. We will continue her on her liquid diet but she may try some mashed bananas today. We will continue the same pain control. IV Dilaudid is available. IV Reglan is also available given her symptoms. I did discuss possible transfer to [place]. However, at this point, she has improved since yesterday and would like to continue with cares here. I did discuss that she would likely need a PICC line and initiation of TPN at some point, and she is agreeable that if things do not improve by tomorrow that we can transfer her for that. We will otherwise monitor with telemetry while giving potassium given pharmacy recommendations. However, her heart rate and vitals have looked excellent. Hopefully, her dizziness will improve with the fluids. We will continue to monitor her closely. KALLIE: 06/03/2019 10:25:34 MODL: 06/03/2019 11:00:00 /[id number] KYRA
[2019-06-03] MEDS: Cyclobenzaprine 10 MG Tab PO PRN (12:25)
[2019-06-03] MEDS: Metoclopramide 10 MG/2 ML SDV IVPUSH PRN (13:30)
[2019-06-03] MEDS: Pantoprazole 40 MG Vial IVPUSH SCH ×2 (13:31→20:27)
[2019-06-03] MEDS ORDERED: Dextrose 5%-0.9% NaCl with KCl 1,000 ML IV SCH (18:15)
[2019-06-03] MEDS ORDERED: NS + KCl 20mEq/L 1,000 ML IV SCH (18:15)
[2019-06-03] MEDS: Ciprofloxacin in D5W 200 MG in Premix Bag 1 BAG IV SCH ×2 (20:14)
[2019-06-03] MEDS: Melatonin 3 MG Tab PO SCH (20:25)
[2019-06-03] MEDS: Gabapentin 100 MG Cap PO SCH (20:25)
[2019-06-03] MEDS: traZODone 50 MG Tab PO SCH (20:27)
[2019-06-03] MEDS: Acetaminophen Susp 160 MG/5 ML 120 ML Bottle PO SCH ×2 (22:24→23:59)
[2019-06-04] MEDS: Prochlorperazine 5 MG Tab PO SCH ×2 (00:05→07:53)
[2019-06-04] MEDS: Ondansetron 4 MG Tab.DIS PO SCH ×2 (00:07→08:41)
[2019-06-04] MEDS: Sodium Chloride 0.9% 10 ML Syringe FLUSH PRN ×2 (00:50→04:56)
[2019-06-04] MEDS: HYDROmorphone 1 MG/ML Syringe IVPUSH PRN ×3 (00:51→08:48)
[2019-06-04] MEDS: Metoclopramide 10 MG/2 ML SDV IVPUSH PRN (04:42)
[2019-06-04] MEDS: diphenhydrAMINE 12.5 MG/5 ML Liquid 5 ML UD Cup PO SCH ×2 (06:38→11:51)
[2019-06-04] MEDS: DRONABINOL 5 MG PO SCH (06:38)
[2019-06-04] MEDS: Acetaminophen Susp 160 MG/5 ML 120 ML Bottle PO SCH ×2 (06:39→11:55)
[2019-06-04] MEDS: Sodium Chloride 0.9% 10 ML Syringe IV PRN (06:58)
[2019-06-04] MEDS: CREON PO SCH ×2 (07:48→11:51)
[2019-06-04] MEDS: Ciprofloxacin in D5W 200 MG in Premix Bag 1 BAG IV SCH ×2 (07:49)
[2019-06-04] MEDS: Dicyclomine 10 MG Cap PO SCH ×2 (07:49→11:49)
[2019-06-04] MEDS: Heparin Sodium 5,000 Units/ML Vial SUBCUT SCH (07:51)
[2019-06-04] MEDS: Pantoprazole 40 MG Vial IVPUSH SCH (07:52)
[2019-06-04] MEDS: Nystatin Crm 30 GM Tube TOP SCH (07:52)
[2019-06-04] MEDS: predniSONE 10 MG Tab PO SCH (07:52)
[2019-06-04] MEDS: Vancomycin 125 MG Cap PO SCH ×2 (07:53→11:49)
[2019-06-04] MEDS: Cyclobenzaprine 10 MG Tab PO PRN (11:48)
--- NOTE | 2019-06-04 11:55 | CR ---
1512-2424 RAD/RAD Chest PA or AP 1V EXAM: RAD Chest PA or AP 1V INDICATION: SHORTNESS OF BREATH. COMPARISON: None. DISCUSSION: Right chest wall cardiac conduction device. Cardiomediastinal silhouette is normal in size and contour. No infiltrate, effusion, pneumothorax, or edema. Lung apices are not evaluated on this study. IMPRESSION: No acute cardiopulmonary abnormality. Maikel Medley DO 06/04/19 1154 Thank you for allowing us to participate in the care of your patient.
--- NOTE | 2019-06-04 15:21 | DISCH ---
PRIMARY DISCHARGE DIAGNOSES: 1. Intractable nausea, vomiting, and abdominal pain due to Crohn's exacerbation. 2. Severe malnutrition due to Crohn. 3. Hypokalemia, replaced IV. 4. Acute kidney injury with chronic kidney disease. Creatinine up again to 1.7 on discharge. 5. Chronic abdominal pain requiring IV narcotics. 6. Chronic anemia with stable hemoglobins. 7. Esophageal irritation, mild hematemesis, but no melena. The patient did receive some IV Protonix, started yesterday, but was also on DVT prophylaxis with heparin and hemoglobins remained stable. 8. Mild hypomagnesemia. 9. Gram-negative urinary tract infection, started on Cipro on 06/03/2019. 10.Diarrhea, stools slightly improved down to just 5 or 6 in the last few days instead of 10. She does have a history of C. diff and had been on b.i.d. vancomycin. It was increased to q.i.d. yesterday with initiating the Cipro. REASON FOR ADMISSION: On the date of admission, this 44-year-old female had been feeling unwell at home. She had increasing pain and inability to keep food down. She was admitted through the clinic. She had showed some gradual improvement throughout the week. Therefore, we held off on transferring her to a higher level of care. She initially received some IV steroids and then was initiated back on prednisone 30 mg daily. On 06/01/2019, she did undergo an abdominal CT which showed her to have changes of proctocolitis and appearance suggestive of ulcerative colitis and also her previous rectosigmoid resection noted, which she did have in 2017 in [place]. Other etiologies could be infectious colitis. GI tract was fluid filled from the stomach, which could be seen and diarrhea as well. The patient began having fevers within the last 24 to 48 hours, 101.4 was the T-max. She was having some dysuria, so yesterday I did a UA which did show 5 to 10 wbc's as well as rbc's and culture was coming back Gram-negative today. I initiated her on the Cipro around 5 p.m. yesterday, but she had already been feeling off and unwell having more abdominal pain and nausea, vomiting up 900 mL yesterday. The patient also had low magnesium at 1.5. However, we held off on replacement of this due to her ongoing diarrhea. Albumin today was 2.2. Her white count was normal at 7.5, hemoglobin was 9.2. DISCHARGE PLANS AND INSTRUCTIONS: The patient is being transferred to [facility] for higher level of care. It is very likely that she needs to be initiated on TPN and be completely n.p.o. Her last infusion of Remicade was like 2 weeks ago and she states she needs to wait about 3 weeks until the next one. She is also on oral Imuran, but it is unknown how much she is actually absorbing of her medications. Cyclobenzaprine was also re-initiated for abdominal pain as well as using a heating pad. Her IV Dilaudid doses which had been discontinued and then were quite infrequent did increase up to at least 4 times a day again and her oral dosing had decreased. The patient's last dose of IV pain medication was at 8:48 this morning. She did not have any cough and had some mild shortness of breath. She had some trace crackles on exam. It was felt to be possibly due to her fluids. Chest x-ray is requested and pending, but she is saturating 99% on room air. Otherwise, it should be noted that she was actually stopped on fluid, but she gets a liter of fluid outpatient daily, so she was re- initiated for a liter and given the D5 due to hypoglycemia with a blood sugar down to 62. Cortisol was requested and is pending and a.m. level. Blood pressures were as low as 88/49 within the last 24 hours, but had improved up to 96/54 this morning. Otherwise, the patient does have a GI specialist at [facility], who is managing her care. PHYSICAL EXAMINATION: Vital Signs: Her temperature on discharge 98.9, pulse 77, blood pressure 96/54, respiratory rate 16, O2 of 99% on room air. General: She is in no acute distress. Heart: Regular rate and rhythm. S1, S2 without murmur. Lungs: Lung sounds are decreased with mild crackles in both bases. Abdomen: Nondistended. Positive bowel sounds, but has significant tenderness especially over the left lower quadrant and suprapubic area. It is not rigid. There is no rebound tenderness. Extremities: Warm and dry. No edema. Mental Status: She is alert and orientated x3. Dr. Braun at [facility] was the accepting physician. MKA: 06/04/2019 11:09:18 MODL: 06/04/2019 15:16:29 /[id number]
[2019-06-04] MEDS ORDERED: Gabapentin 400 MG Cap PO SCH (20:00)
[2019-06-04] MEDS ORDERED: Gabapentin 100 MG Cap PO SCH (20:00)
[2019-06-05] MEDS ORDERED: Ciprofloxacin in D5W 200 MG in Premix Bag 1 BAG IV SCH ×2
== END 2019-06-04 12:30 | disposition short-term general hospital (02) | DRG 469 ==
LOC: VM.MS 12:42
PROVIDERS: ADMIT Family Medicine; ATTEND Family Medicine
DX: N17.9 Acute kidney failure, unspecified (principal); E86.0 Dehydration; K50.90 Crohn's disease, unspecified, without complications; E43 Unspecified severe protein-calorie malnutrition; E87.6 Hypokalemia; N18.9 Chronic kidney disease, unspecified; G89.29 Other chronic pain; K92.0 Hematemesis; E83.42 Hypomagnesemia; N39.0 Urinary tract infection, site not specified; B96.89 Other specified bacterial agents as the cause of diseases classified elsewhere; R19.7 Diarrhea, unspecified; K21.9 Gastro-esophageal reflux disease without esophagitis; M54.9 Dorsalgia, unspecified; D64.9 Anemia, unspecified; R11.2 Nausea with vomiting, unspecified; F41.9 Anxiety disorder, unspecified; Z90.49 Acquired absence of other specified parts of digestive tract; Z88.6 Allergy status to analgesic agent; Z88.5 Allergy status to narcotic agent; Z88.0 Allergy status to penicillin; Z88.8 Allergy status to other drugs, medicaments and biological substances; Z79.899 Other long term (current) drug therapy; Z79.52 Long term (current) use of systemic steroids
CPT/HCPCS: 36415; 71045; 74177; 80048; 80053; 80069; 81001; 82962; 83735; 84132; 85025; 85652; 87086; 87088; 87186; A4217; A9270-GY; C9113; J0744; J0780; J1170; J1200; J1642; J1644; J2405; J2765; J2920; J3420; J3480; J7030; J7120; J7500; Q0164; Q9967

== ENCOUNTER 2019-06-28 06:24 | Emergency (ER) | payer BC, OTHER ==
[2019-06-28] MEDS ORDERED: Lactated Ringers 1,000 ML IV ONE (06:35)
[2019-06-28] MEDS ORDERED: Ketorolac 15 MG/ML SDV IVPUSH ONE (06:36)
[2019-06-28] MEDS ORDERED: methylPREDNISolone Sodium Succinate 125 MG/2 ML SDV IV ONE (06:36)
--- NOTE | 2019-06-28 07:36 | EDM.PDOC ---
ED HPI GENERAL MEDICAL PROBLEM - General Chief Complaint: General Stated Complaint: arthritis pain Time Seen by Provider: 06/28/19 06:26 Source of Information: Reports: Patient, Family History Limitations: Reports: No Limitations - History of Present Illness INITIAL COMMENTS - FREE TEXT/NARRATIVE: Pt. presents to ER with complaints of arthralgia. Pt. has a history of rheumatoid arthritis and states that she has been experiencing worsening of of symptoms over the past several days. She is on Remicade and is due for an infusion soon. She is on prednisone 20mg daily and recently was on prednisone 40mg daily but it was decreased. She previously was on oral opiate pain medication and this was stopped for concerns over gastroparesis due to narcotic pain medications. She is not experiencing any abdominal pain on this visit. She has been experiencing some bloody stools, but this is a chronic problem for her with her history of Crohn's disease. Pt. denies any fever or chills. No chest pain or shortness of breath. States that the pain is global in nature and involves all of her joints. Onset Date: 06/28/19 Location: Reports: Neck, Back, Pelvis, Upper Extremity, Left, Upper Extremity, Right, Lower Extremity, Left, Lower Extremity, Right, Generalized Quality: Reports: Ache, Throbbing Severity: Severe Generalized Pain Score (Numeric/FACES): 9 - Related Data Allergies Allergy/AdvReac Type Severity Reaction Status Date / Time codeine Allergy Severe Anaphylactic Verified 06/28/19 06:26 Shock Penicillins Allergy Severe Anaphylactic Verified 06/28/19 06:26 Shock acetaminophen Allergy Other Verified 06/28/19 06:26 [From Darvocet-N] propoxyphene Allergy Other Verified 06/28/19 06:26 [From Darvocet-N] morphine AdvReac Headache Verified 06/28/19 06:26 Home Meds: Home Meds Melatonin 6 mg PO BEDTIME 11/23/18 [History] Simethicone 80 mg PO QID PRN 11/23/18 [History] traZODone HCl [Trazodone HCl] 50 mg PO BEDTIME 11/23/18 [History] Amylase/Lipase/Protease [Johnna DR 24,000 Unit] 2 cap PO TIDMEALS 02/22/19 [ History] azaTHIOprine [Imuran] 50 mg PO DAILY 02/22/19 [History] Lidocaine/Prilocaine [Lidocaine-Prilocaine Cream] 1 applic TOP DAILY PRN [History] predniSONE [Prednisone] 30 mg PO DAILY 04/14/19 [History] Menthol/Methyl Salicylate [Icy Hot] 1 applic TOP QID PRN 05/01/19 [History] Hydrocortisone [Anusol-HC] 1 applic RECTAL QID PRN 05/02/19 [History] Nystatin [Nystatin Crm] 1 applic TOP BID 05/26/19 [History] Acetaminophen [Tylenol Solution 160 MG/5 ML] 650 mg PO Q6HR bottle 06/04/19 [Rx ] Heparin Sodium [Heparin Lock Flush] 500 units IVPUSH ASDIRECTED PRN syringe [Rx] Ondansetron [Zofran ODT] 8 mg PO Q8H tab.dis 06/04/19 [Rx] Vancomycin 125 mg PO QID cap 06/04/19 [Rx] Zinc Oxide 0 gm TOP Q2H PRN tube 06/04/19 [Rx] Past Medical History HEENT History: Reports: None Cardiovascular History: Reports: None Respiratory History: Reports: None Gastrointestinal History: Reports: GERD, Inflammatory Bowel Disease Other Gastrointestinal History: crohn's disease. 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 Musculoskeletal History: Reports: Back Pain, Chronic Neurological History: Reports: None Psychiatric History: Reports: Anxiety Endocrine/Metabolic History: Reports: None Hematologic History: Reports: Anemia Immunologic History: Reports: Immunosuppression Oncologic (Cancer) History: Reports: None Dermatologic History: Reports: None - Infectious Disease History Infectious Disease History: Reports: None - Past Surgical History Head Surgeries/Procedures: Reports: None HEENT Surgical History: Reports: None GI Surgical History: Reports: Appendectomy, Cholecystectomy, Colonoscopy, Other (See Below) Other GI Surgeries/Procedures: partial sigmoidectomy Female Surgical History: Reports: None Oncologic Surgical History: Reports: None Social & Family History - Family History Family Medical History: Noncontributory HEENT: Reports: None Cardiac: Reports: None GI: Reports: None OBGYN: Reports: None Neurological: Reports: Parkinson's Psychiatric: Reports: None Endocrine/Metabolic: Reports: None Immunologic: Reports: None Dermatologic: Reports: None Oncologic: Reports: Brain, Liver - Tobacco Use Smoking Status *Q: Never Smoker - Caffeine Use Caffeine Use: Reports: None Caffeine Use Comment: 2cups of coffee 1 - 2 bottles of pop - Living Situation & Occupation Living situation: Reports: , with Significant Other (from [place] but staying with her daughter in [place]) 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 GENERAL - Review of Systems Review Of Systems: See Below Constitutional: Reports: No Symptoms HEENT: Reports: No Symptoms Respiratory: Reports: No Symptoms Cardiovascular: Reports: No Symptoms Endocrine: Reports: No Symptoms GI/Abdominal: Reports: No Symptoms : Reports: No Symptoms Musculoskeletal: Reports: No Symptoms Skin: Reports: No Symptoms Neurological: Reports: No Symptoms Psychiatric: Reports: No Symptoms Hematologic/Lymphatic: Reports: No Symptoms Immunologic: Reports: No Symptoms ED EXAM, GENERAL - Physical Exam Exam: See Below Exam Limited By: No Limitations General Appearance: Alert, WD/WN, Moderate Distress Head: Atraumatic, Normocephalic Neck: Normal Inspection, Supple, Tender Midline Respiratory/Chest: No Respiratory Distress, Lungs Clear, Normal Breath Sounds, No Accessory Muscle Use, Chest Non-Tender Cardiovascular: Normal Peripheral Pulses, Regular Rate, Rhythm, No Edema, No Gallop, No JVD, No Murmur, No Rub GI/Abdominal: Normal Bowel Sounds, Soft, Non-Tender, No Organomegaly, No Distention, No Mass (Female) Exam: Deferred Rectal (Female) Exam: Deferred Back Exam: Normal Inspection, Full Range of Motion Extremities: Normal Inspection, Other (joint pain to upper and lower extremities as well and neck and back) Neurological: Alert, Oriented, CN II-XII Intact, Normal Cognition, Normal Gait, Normal Reflexes, No Motor/Sensory Deficits Psychiatric: Normal Affect, Normal Mood Skin Exam: Warm, Dry, Intact, Normal Color, No Rash Lymphatic: No Adenopathy Course - Vital Signs Last Recorded V/S: Last Vital Signs Temp 36.3 C 06/28/19 06:26 Pulse 100 06/28/19 06:26 Resp 20 06/28/19 06:26 BP 142/85 H 06/28/19 06:26 Pulse Ox 100 06/28/19 06:26 - Orders/Labs/Meds Orders: Active Orders 24 hr Category Date Time Status Implanted Port Access [RC] ASDIRECTED Care 06/28/19 06:34 Active Heparin Sodium [Heparin Lock Flush 100 Units/ML] Med 06/28/19 08:19 Active 500 units IVPUSH ASDIRECTED PRN Medication Orders Heparin Sodium (Porcine) (Heparin Lock Flush 100 Units/Ml) 500 units IVPUSH ASDIRECTED PRN PRN Reason: Keep Vein Open Last Admin: 06/28/19 08:28 Dose: 500 units Meds: Medications Generic Name Dose Route Start Last Admin Trade Name Freq PRN Reason Stop Dose Admin Heparin Sodium (Porcine) 500 units 06/28/19 08:19 06/28/19 08:28 Heparin Lock Flush 100 Units/Ml IVPUSH 500 units ASDIRECTED PRN Administration Keep Vein Open Discontinued Medications Generic Name Dose Route Start Last Admin Trade Name Freq PRN Reason Stop Dose Admin Lactated Ringer's 1,000 mls @ 1,000 mls/hr 06/28/19 06:35 06/28/19 06:37 Ringers, Lactated IV 06/28/19 07:34 1,000 mls/hr ONETIME ONE Administration Ketorolac Tromethamine 15 mg 06/28/19 06:36 06/28/19 06:41 Toradol IVPUSH 06/28/19 06:37 15 mg ONETIME ONE Administration Methylprednisolone Sodium Succinate 125 mg 06/28/19 06:36 06/28/19 06:45 Solu-Medrol IV 06/28/19 06:37 125 mg ONETIME ONE Administration Departure - Departure Time of Disposition: 08:15 Disposition: Home, Self-Care 01 Clinical Impression: Arthralgia - Discharge Information Instructions: Joint Pain, [id number] Referrals: Xiomy Oliva MD [Primary Care Provider] - Forms: ED Department Discharge Additional Instructions: Prednisone 20mg 1 tablet in addition to your other 20mg tablet for a total of 40mg daily for 5 days Follow-up with Dr. Oliva as needed. It is important that you stay moving as much as possible, even if it hurts. I would try heat as needed for local discomfort. - My Orders Last 24 Hours: My Active Orders 06/28/19 06:34 Implanted Port Access [RC] ASDIRECTED 06/28/19 08:19 Heparin Sodium [Heparin Lock Flush 100 Units/ML] 500 units IVPUSH ASDIRECTED PRN - Assessment/Plan Last 24 Hours: My Active Orders 06/28/19 06:34 Implanted Port Access [RC] ASDIRECTED 06/28/19 08:19 Heparin Sodium [Heparin Lock Flush 100 Units/ML] 500 units IVPUSH ASDIRECTED PRN Plan: Prednisone 20mg 1 tablet in addition to your other 20mg tablet for a total of 40mg daily for 5 days Follow-up with Dr. Oliva as needed. It is important that you stay moving as much as possible, even if it hurts. I would try heat as needed for local discomfort.
== END 2019-06-28 08:32 | disposition home or self-care (01) ==
LOC: VM.ED 06:24
DX: M25.522 Pain in left elbow (principal); M25.521 Pain in right elbow; M25.542 Pain in joints of left hand; M25.541 Pain in joints of right hand; M25.512 Pain in left shoulder; M25.511 Pain in right shoulder; M25.532 Pain in left wrist; M25.531 Pain in right wrist; M25.571 Pain in right ankle and joints of right foot; M25.572 Pain in left ankle and joints of left foot; M25.561 Pain in right knee; M25.562 Pain in left knee; M54.2 Cervicalgia; M54.5 Low back pain; F41.9 Anxiety disorder, unspecified; Z88.0 Allergy status to penicillin; Z88.5 Allergy status to narcotic agent; Z88.8 Allergy status to other drugs, medicaments and biological substances; Z79.899 Other long term (current) drug therapy; Z90.49 Acquired absence of other specified parts of digestive tract
CPT/HCPCS: 96361; 96374; 96375; 99283; J1642; J1885; J2930; J7120

== ENCOUNTER 2020-01-10 13:37 | Emergency (ER) | payer BC, OTHER ==
[2020-01-10] MEDS ORDERED: Sodium Chloride 0.9% 1,000 ML IV ONE (14:02)
[2020-01-10] MEDS ORDERED: Prochlorperazine 10 MG/2 ML SDV IV ONE (14:04)
[2020-01-10] MEDS ORDERED: diphenhydrAMINE 50 MG/ML SDV IVPUSH ONE (14:05)
[2020-01-10] MEDS ORDERED: Dexamethasone 4 MG/ML SDV IVPUSH ONE (14:05)
[2020-01-10 14:50] LABS: CHLORIDE,CL 102 mmol/L (98-107); SODIUM,NA 142 mmol/L (136-145)
[2020-01-10 14:52] LABS: ANION GAP 14.1 mmol/L (10-20)
[2020-01-10] MEDS ORDERED: Sodium Chloride 0.9% 10 ML Syringe IV PRN (16:19)
--- NOTE | 2020-01-11 09:30 | EDM.PDOC ---
ED HPI GENERAL MEDICAL PROBLEM - General Chief Complaint: Gastrointestinal Problem Time Seen by Provider: 01/10/20 13:45 Source of Information: Reports: Patient History Limitations: Reports: No Limitations - History of Present Illness INITIAL COMMENTS - FREE TEXT/NARRATIVE: Pt. presents to ER with nausea and vomiting. She currently is taking IV fluids at home but states that she has developed nausea/vomiting and states that her usual is not helping with the nausea/vomiting, and she states that she "threw it up". She states that she continues with struggle with numerous medical problems, including fungal esophageal infection and candidal vulvovaginitis. Pt. has been losing weight. Her clinic med record indicates that there is plan for the patient to possibly restart tube feeding in the near future. Pt. denies any chest pain or shortness of breath. No blood in vomit. Denies any fever or chills. Onset: Today Onset Date: 01/10/20 Location: Reports: Abdomen, Generalized Associated Symptoms: Reports: Nausea/Vomiting - Related Data Allergies Allergy/AdvReac Type Severity Reaction Status Date / Time codeine Allergy Severe Anaphylactic Verified 01/10/20 14:00 Shock Penicillins Allergy Severe Anaphylactic Verified 01/10/20 14:00 Shock acetaminophen Allergy Other Verified 01/10/20 14:00 [From Darvocet-N] propoxyphene Allergy Other Verified 01/10/20 14:00 [From Darvocet-N] morphine AdvReac Headache Verified 01/10/20 14:00 Home Meds: Home Meds Melatonin 6 mg PO BEDTIME 11/23/18 [History] Simethicone 80 mg PO QID PRN 11/23/18 [History] Amylase/Lipase/Protease [Johnna GALLAGHER 24,000 Unit] 2 cap PO TIDMEALS 02/22/19 [ History] azaTHIOprine [Imuran] 50 mg PO DAILY 02/22/19 [History] Lidocaine/Prilocaine [Lidocaine-Prilocaine Cream] 1 applic TOP DAILY PRN [History] predniSONE [Prednisone] 20 mg PO DAILY 04/14/19 [History] Menthol/Methyl Salicylate [Icy Hot] 1 applic TOP QID PRN 05/01/19 [History] Hydrocortisone [Anusol-HC] 1 applic RECTAL QID PRN 05/02/19 [History] Nystatin [Nystatin Crm] 1 applic TOP BID PRN 05/26/19 [History] Acetaminophen [Tylenol Solution 160 MG/5 ML] 650 mg PO Q6HR bottle 06/04/19 [Rx ] Heparin Sodium [Heparin Lock Flush] 500 units IVPUSH ASDIRECTED PRN syringe [Rx] Zinc Oxide 0 gm TOP Q2H PRN tube 06/04/19 [Rx] Ergocalciferol (Vitamin D2) [Drisdol] 50,000 unit PO WEEKLY 07/19/19 [History] Sertraline [Zoloft] 100 mg PO DAILY 08/23/19 [History] Cyclobenzaprine [Flexeril] 5 mg PO Q8H PRN 10/30/19 [History] Ondansetron [Zofran ODT] 8 mg PO Q8H PRN 12/19/19 [History] Past Medical History HEENT History: Reports: None Cardiovascular History: Reports: None Respiratory History: Reports: None Gastrointestinal History: Reports: GERD, Inflammatory Bowel Disease Other Gastrointestinal History: crohn's disease. 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 Musculoskeletal History: Reports: Back Pain, Chronic Neurological History: Reports: None Psychiatric History: Reports: Anxiety Endocrine/Metabolic History: Reports: None Hematologic History: Reports: Anemia Immunologic History: Reports: Immunosuppression Oncologic (Cancer) History: Reports: None Dermatologic History: Reports: None - Infectious Disease History Infectious Disease History: Reports: None - Past Surgical History GI Surgical History: Reports: Appendectomy, Cholecystectomy, Colonoscopy, Other (See Below) Other GI Surgeries/Procedures: partial sigmoidectomy Social & Family History - Family History Family Medical History: Noncontributory HEENT: Reports: None Cardiac: Reports: None GI: Reports: None OBGYN: Reports: None Neurological: Reports: Parkinson's Psychiatric: Reports: None Endocrine/Metabolic: Reports: None Immunologic: Reports: None Dermatologic: Reports: None Oncologic: Reports: Brain, Liver - Tobacco Use Smoking Status *Q: Never Smoker - Caffeine Use Caffeine Use: Reports: None Caffeine Use Comment: 2cups of coffee 1 - 2 bottles of pop - Living Situation & Occupation Living situation: Reports: , with Significant Other (from [place] but staying with her daughter in [place]) 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 Denies: Abdominal Pain, Black Stool, Bloody Stool Musculoskeletal: Reports: No Symptoms Skin: Reports: No Symptoms Neurological: Reports: No Symptoms Psychiatric: Reports: No Symptoms Hematologic/Lymphatic: Reports: No Symptoms Immunologic: Reports: No Symptoms ED EXAM, GENERAL - Physical Exam Exam: See Below Exam Limited By: No Limitations General Appearance: Alert, WD/WN, No Apparent Distress Eye Exam: Bilateral Eye: EOMI, PERRL Nose: Normal Inspection, Normal Mucosa, No Blood Throat/Mouth: Normal Inspection, Normal Lips, Normal Teeth, Normal Gums, Normal Oropharynx, Normal Voice, No Airway Compromise Head: Atraumatic, Normocephalic Neck: Normal Inspection, Supple, Non-Tender, Full Range of Motion Respiratory/Chest: No Respiratory Distress, Lungs Clear, Normal Breath Sounds, No Accessory Muscle Use, Chest Non-Tender Cardiovascular: Normal Peripheral Pulses, Regular Rate, Rhythm, No Edema, No Gallop, No JVD, No Murmur, No Rub Peripheral Pulses: 4+: Radial (L) GI/Abdominal: Normal Bowel Sounds, Soft, Non-Tender, No Mass Extremities: Normal Inspection, Normal Range of Motion, Non-Tender, No Pedal Edema, Normal Capillary Refill Neurological: Alert, Oriented, CN II-XII Intact, Normal Cognition, Normal Gait, Normal Reflexes, No Motor/Sensory Deficits Psychiatric: Normal Affect, Normal Mood Skin Exam: Warm, Dry, Intact, Normal Color, No Rash Lymphatic: No Adenopathy Course - Vital Signs Last Recorded V/S: Last Vital Signs Temp 36.7 C 01/10/20 13:45 Pulse 87 01/10/20 13:45 Resp 18 01/10/20 13:45 BP 102/57 L 01/10/20 13:45 Pulse Ox 97 01/10/20 13:45 - Orders/Labs/Meds Orders: Active Orders 24 hr Category Date Time Status CULTURE BLOOD [BC] Stat Lab 01/10/20 14:08 Received CULTURE BLOOD [BC] Stat Lab 01/10/20 14:11 Received Blood Culture x2 Reflex Set [OM.PC] Stat Oth 01/10/20 14:01 Ordered Labs: Laboratory Tests 01/10/20 01/10/20 01/10/20 Range/Units 14:08 14:08 14:08 WBC 9.0 (4.0-10.0) x10^3/uL RBC 4.40 (4.00-5.50) x10^6/uL Hgb 14.9 D (12.0-16.0) g/dL Hct 44.7 (33.0-47.0) % MCV 101.6 H D (78.0-93.0) fL MCH 33.9 H (26.0-32.0) pg MCHC 33.3 (32.0-36.0) g/dL RDW Coeff of Brianda 13.3 (10.0-15.0) % Plt Count 484 H D (130-400) x10^3/uL Neut % (Auto) 78.7 (50.0-80.0) % Lymph % (Auto) 12.7 L (25.0-50.0) % Miner % (Auto) 6.3 (2.0-11.0) % Eos % (Auto) 1.7 (0.0-4.0) % Baso % (Auto) 0.6 (0.2-1.2) % PT 9.9 L (10.0-12.8) SEC INR 0.9 L (2.0-3.5) Sodium 142 (136-145) mmol/L Potassium 3.1 L (3.5-5.1) mmol/L Chloride 102 (98-107) mmol/L Carbon Dioxide 29 (21-32) mmol/L Anion Gap 14.1 (10-20) mmol/L BUN 33 H (7-18) mg/dL Creatinine 2.2 H (0.55-1.02) mg/dL Est Cr Clr Drug Dosing TNP Estimated GFR (MDRD) 24 Glucose 111 H (74-106) mg/dL Lactic Acid (0.4-2.0) mmol/L Calcium 9.6 (8.5-10.1) mg/dL Corrected Calcium 9.92 (8.5-10.1) mg/dL Total Bilirubin 0.3 (0.2-1.0) mg/dL AST 33 (15-37) U/L ALT 42 (14-59) U/L Alkaline Phosphatase 73 (46-116) U/L C-Reactive Protein 0.7 (<=0.9) mg/dL Total Protein 7.9 (6.4-8.2) g/dL Albumin 3.6 (3.4-5.0) g/dL Globulin 4.3 Albumin/Globulin Ratio 0.84 TSH, Ultra Sensitive 2.622 (0.358-3.74) uIU/mL 01/10/20 Range/Units 14:08 WBC (4.0-10.0) x10^3/uL RBC (4.00-5.50) x10^6/uL Hgb (12.0-16.0) g/dL Hct (33.0-47.0) % MCV (78.0-93.0) fL MCH (26.0-32.0) pg MCHC (32.0-36.0) g/dL RDW Coeff of Brianda (10.0-15.0) % Plt Count (130-400) x10^3/uL Neut % (Auto) (50.0-80.0) % Lymph % (Auto) (25.0-50.0) % Miner % (Auto) (2.0-11.0) % Eos % (Auto) (0.0-4.0) % Baso % (Auto) (0.2-1.2) % PT (10.0-12.8) SEC INR (2.0-3.5) Sodium (136-145) mmol/L Potassium (3.5-5.1) mmol/L Chloride (98-107) mmol/L Carbon Dioxide (21-32) mmol/L Anion Gap (10-20) mmol/L BUN (7-18) mg/dL Creatinine (0.55-1.02) mg/dL Est Cr Clr Drug Dosing Estimated GFR (MDRD) Glucose (74-106) mg/dL Lactic Acid 0.7 (0.4-2.0) mmol/L Calcium (8.5-10.1) mg/dL Corrected Calcium (8.5-10.1) mg/dL Total Bilirubin (0.2-1.0) mg/dL AST (15-37) U/L ALT (14-59) U/L Alkaline Phosphatase (46-116) U/L C-Reactive Protein (<=0.9) mg/dL Total Protein (6.4-8.2) g/dL Albumin (3.4-5.0) g/dL Globulin Albumin/Globulin Ratio TSH, Ultra Sensitive (0.358-3.74) uIU/mL Meds: Medications Discontinued Medications Generic Name Dose Route Start Last Admin Trade Name Freq PRN Reason Stop Dose Admin Dexamethasone 8 mg 01/10/20 14:05 01/10/20 14:30 Dexamethasone IVPUSH 01/10/20 14:06 8 mg ONETIME ONE Administration Diphenhydramine HCl 50 mg 01/10/20 14:05 01/10/20 14:28 Benadryl IVPUSH 01/10/20 14:06 50 mg ONETIME ONE Administration Heparin Sodium (Porcine) 500 units 01/10/20 16:15 01/10/20 16:19 Heparin Lock Flush 100 Units/Ml IVPUSH 500 units ASDIRECTED PRN Administration Keep Vein Open Sodium Chloride 1,000 mls @ 1,000 mls/hr 01/10/20 14:02 01/10/20 14:25 Normal Saline IV 01/10/20 15:01 1,000 mls/hr .BOLUS ONE Administration Prochlorperazine Edisylate 10 mg 01/10/20 14:04 01/10/20 14:26 Compazine IV 01/10/20 14:05 10 mg ONETIME ONE Administration Sodium Chloride 20 ml 01/10/20 16:19 01/10/20 16:20 Saline Flush IV 20 ml ASDIRECTED PRN Administration Keep Vein Open Departure - Departure Time of Disposition: 16:00 Disposition: Home, Self-Care 01 Clinical Impression: Crohn disease Qualifiers: Gastrointestinal tract location: unspecified location Digestive disease complication type: without complication Qualified Code(s): K50.90 - Crohn's disease, unspecified, without complications - Discharge Information Instructions: Nausea and Vomiting, Adult, Prochlorperazine tablets Referrals: Xiomy Oliva MD [Primary Care Provider] - Forms: ED Department Discharge Additional Instructions: Compazine 10mg 1 three times daily as needed for nausea/vomiting Return to ER if you are unable to hold down fluids. Continue with other medications. Sepsis Event Note - Evaluation Sepsis Screening Result: No Definite Risk - My Orders Last 24 Hours: My Active Orders 01/10/20 14:01 Blood Culture x2 Reflex Set [OM.PC] Stat 01/10/20 14:08 CULTURE BLOOD [BC] Stat 01/10/20 14:11 CULTURE BLOOD [BC] Stat - Assessment/Plan Last 24 Hours: My Active Orders 01/10/20 14:01 Blood Culture x2 Reflex Set [OM.PC] Stat 01/10/20 14:08 CULTURE BLOOD [BC] Stat 01/10/20 14:11 CULTURE BLOOD [BC] Stat Plan: Compazine 10mg 1 three times daily as needed for nausea/vomiting Return to ER if you are unable to hold down fluids. Continue with other medications.
== END 2020-01-10 16:24 | disposition home or self-care (01) ==
LOC: VM.ED 13:37
DX: K50.90 Crohn's disease, unspecified, without complications (principal); N18.9 Chronic kidney disease, unspecified; F41.9 Anxiety disorder, unspecified; Z90.49 Acquired absence of other specified parts of digestive tract; Z88.5 Allergy status to narcotic agent; Z88.8 Allergy status to other drugs, medicaments and biological substances; Z79.899 Other long term (current) drug therapy; Z88.0 Allergy status to penicillin
CPT/HCPCS: 36415; 80053; 83605; 84443; 85025; 85610; 86140; 87040; 96361; 96374; 96375; 99284; J0780; J1100; J1200; J1642; J7030

== ENCOUNTER 2020-01-22 09:51 | Emergency (ER) | payer BC, OTHER ==
--- NOTE | 2020-01-22 10:08 | EDM.PDOC ---
ED HPI GENERAL MEDICAL PROBLEM - General Chief Complaint: Abdominal Pain Stated Complaint: ER Time Seen by Provider: 01/22/20 10:05 Source of Information: Reports: Patient History Limitations: Reports: No Limitations - History of Present Illness INITIAL COMMENTS - FREE TEXT/NARRATIVE: Pt presents to the ED from the clinic for further evaluation of abscess on the epigastric region. The patient has been doctoring the past week for epigastric pain. Initially though it was a pulled muscle. The last few days she started having increased epigastric pain with deep breath. No fever no chills. No cough. No chest syncope palpitation or other complaints. She is rather chronically ill with multiple problems her nausea vomiting and diarrhea and abd pain is unchanged from chronic symptoms. She does give herself IV fluids at home on a daily basis 1-2 liters due to poor absorption at home with chronic issues of crohns disease. She did have a G tube at this site in the past in the epigastric region and has had an abscess in that location in the past as well. Upper Abdomen Pain Score (Numeric/FACES): 9 - Related Data Allergies Allergy/AdvReac Type Severity Reaction Status Date / Time codeine Allergy Severe Anaphylactic Verified 01/22/20 09:58 Shock Penicillins Allergy Severe Anaphylactic Verified 01/22/20 09:58 Shock acetaminophen Allergy Other Verified 01/22/20 09:58 [From Darvocet-N] propoxyphene Allergy Other Verified 01/22/20 09:58 [From Darvocet-N] morphine AdvReac Headache Verified 01/22/20 09:58 Home Meds: Home Meds Melatonin 6 mg PO BEDTIME 11/23/18 [History] Simethicone 80 mg PO QID PRN 11/23/18 [History] Amylase/Lipase/Protease [Johnna GALLAGHER 24,000 Unit] 2 cap PO TIDMEALS 02/22/19 [ History] azaTHIOprine [Imuran] 50 mg PO DAILY 02/22/19 [History] Lidocaine/Prilocaine [Lidocaine-Prilocaine Cream] 1 applic TOP DAILY PRN [History] predniSONE [Prednisone] 20 mg PO DAILY 04/14/19 [History] Menthol/Methyl Salicylate [Icy Hot] 1 applic TOP QID PRN 05/01/19 [History] Hydrocortisone [Anusol-HC] 1 applic RECTAL QID PRN 05/02/19 [History] Nystatin [Nystatin Crm] 1 applic TOP BID PRN 05/26/19 [History] Acetaminophen [Tylenol Solution 160 MG/5 ML] 650 mg PO Q6HR bottle 06/04/19 [Rx ] Heparin Sodium [Heparin Lock Flush] 500 units IVPUSH ASDIRECTED PRN syringe [Rx] Zinc Oxide 0 gm TOP Q2H PRN tube 06/04/19 [Rx] Ergocalciferol (Vitamin D2) [Drisdol] 50,000 unit PO WEEKLY 07/19/19 [History] Sertraline [Zoloft] 100 mg PO DAILY 08/23/19 [History] Cyclobenzaprine [Flexeril] 5 mg PO Q8H PRN 10/30/19 [History] Ondansetron [Zofran ODT] 8 mg PO Q8H PRN 12/19/19 [History] Past Medical History HEENT History: Reports: None Cardiovascular History: Reports: None Respiratory History: Reports: None Gastrointestinal History: Reports: GERD, Inflammatory Bowel Disease Other Gastrointestinal History: crohn's disease. colitis Genitourinary History: Reports: Acute Renal Failure, Chronic Renal Insuffiency MANAGER RISK History: Reports: None Musculoskeletal History: Reports: Back Pain, Chronic Neurological History: Reports: None Psychiatric History: Reports: Anxiety Endocrine/Metabolic History: Reports: None Hematologic History: Reports: Anemia Immunologic History: Reports: Immunosuppression Oncologic (Cancer) History: Reports: None Dermatologic History: Reports: None - Infectious Disease History Infectious Disease History: Reports: None - Past Surgical History GI Surgical History: Reports: Appendectomy, Cholecystectomy, Colonoscopy, Other (See Below) Other GI Surgeries/Procedures: partial sigmoidectomy Social & Family History - Family History Family Medical History: Noncontributory HEENT: Reports: None Cardiac: Reports: None GI: Reports: None OBGYN: Reports: None Neurological: Reports: Parkinson's Psychiatric: Reports: None Endocrine/Metabolic: Reports: None Immunologic: Reports: None Dermatologic: Reports: None Oncologic: Reports: Brain, Liver - Caffeine Use Caffeine Use: Reports: None Caffeine Use Comment: 2cups of coffee 1 - 2 bottles of pop - Living Situation & Occupation Living situation: Reports: , with Significant Other (from [place] but staying with her daughter in [place]) 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 ED EXAM, GI/ABD - Physical Exam Exam: See Below Exam Limited By: No Limitations General Appearance: Alert, Thin, Cachetic Eyes: Bilateral: EOMI Ears: Normal External Exam, Normal TMs Nose: Normal Inspection, Normal Mucosa Throat/Mouth: Normal Inspection, Normal Lips Head: Atraumatic, Normocephalic Neck: Normal Inspection Respiratory/Chest: No Respiratory Distress, Lungs Clear, Normal Breath Sounds, No Accessory Muscle Use Cardiovascular: Normal Peripheral Pulses, Regular Rate, Rhythm GI/Abdominal Exam: Normal Bowel Sounds, Soft, Tender (Primarily to the epigastric region. Rest of the abd is none tender. ), Mass (There is a superficial area in the epigastric region about the size of a golfball that has redness tenderness and swollen. ? Abscess with apocket in the center no other masses on palpation. ) Back Exam: Normal Inspection Extremities: Normal Inspection, No Pedal Edema Neurological: Alert, Oriented, Normal Cognition, Normal Gait, No Motor/Sensory Deficits Psychiatric: Normal Affect Skin Exam: Warm, Dry, Intact, Normal Color, No Rash Course - Vital Signs Last Recorded V/S: Last Vital Signs Temp 36.4 C 01/22/20 10:00 Pulse 90 01/22/20 10:00 Resp 16 01/22/20 10:00 BP 127/61 01/22/20 10:00 Pulse Ox 100 01/22/20 10:00 - Orders/Labs/Meds Orders: Active Orders 24 hr Category Date Time Status CULTURE BLOOD [BC] Stat Lab 01/22/20 10:10 Received CULTURE BLOOD [BC] Stat Lab 01/22/20 10:18 Received metroNIDAZOLE/Normal Saline [Flagyl 500 MG in NS 100 ML Med 01/22/20 11:32 Active ] 500 mg Premix Bag 1 bag IV ONETIME Blood Culture x2 Reflex Set [OM.PC] Stat Oth 01/22/20 10:05 Ordered Medication Orders Metronidazole 500 mg/ Premix 100 mls @ 100 mls/hr IV ONETIME ONE Stop: 01/22/20 12:31 Last Admin: 01/22/20 11:48 Dose: 100 mls/hr Labs: Laboratory Tests 01/22/20 01/22/20 01/22/20 Range/Units 10:10 10:10 10:10 WBC 13.7 H (4.0-10.0) x10^3/uL RBC 3.66 L (4.00-5.50) x10^6/uL Hgb 12.2 D (12.0-16.0) g/dL Hct 37.5 (33.0-47.0) % MCV 102.5 H (78.0-93.0) fL MCH 33.3 H (26.0-32.0) pg MCHC 32.5 (32.0-36.0) g/dL RDW Coeff of Brianda 12.6 (10.0-15.0) % Plt Count 401 H D (130-400) x10^3/uL Neut % (Auto) 83.6 H (50.0-80.0) % Lymph % (Auto) 8.5 L (25.0-50.0) % Nuckolls % (Auto) 6.6 (2.0-11.0) % Eos % (Auto) 0.9 (0.0-4.0) % Baso % (Auto) 0.4 (0.2-1.2) % Sodium 137 (136-145) mmol/L Potassium 3.2 L (3.5-5.1) mmol/L Chloride 103 (98-107) mmol/L Carbon Dioxide 22 (21-32) mmol/L Anion Gap 15.2 (10-20) mmol/L BUN 32 H (7-18) mg/dL Creatinine 1.5 H (0.55-1.02) mg/dL Est Cr Clr Drug Dosing TNP Estimated GFR (MDRD) 37 Glucose 87 (74-106) mg/dL Lactic Acid 0.7 (0.4-2.0) mmol/L Calcium 9.0 (8.5-10.1) mg/dL Corrected Calcium 9.64 (8.5-10.1) mg/dL Total Bilirubin 0.2 (0.2-1.0) mg/dL AST 22 (15-37) U/L ALT 36 (14-59) U/L Alkaline Phosphatase 64 (46-116) U/L C-Reactive Protein 1.5 H (<=0.9) mg/dL Total Protein 6.9 (6.4-8.2) g/dL Albumin 3.2 L (3.4-5.0) g/dL Globulin 3.7 Albumin/Globulin Ratio 0.86 Urine Color (YELLOW) Urine Appearance (CLEAR) Urine pH (5.0-8.0) Ur Specific [place] Urine Protein (NEGATIVE) mg/dL Urine Glucose (UA) (NEGATIVE) mg/dL Urine Ketones (NEGATIVE) mg/dL Urine Occult Blood (NEGATIVE) Urine Nitrite (NEGATIVE) Urine Bilirubin (NEGATIVE) Urine Urobilinogen (0.2) EU/dL Ur Leukocyte Esterase (NEGATIVE) Urine RBC (NOT SEEN) /HPF Urine WBC (NOT SEEN) /HPF Ur Squamous Epith Cells (NEGATIVE) /HPF Urine Bacteria (NEGATIVE) /HPF Urine Mucus (NEGATIVE) /LPF 01/22/20 Range/Units 10:11 WBC (4.0-10.0) x10^3/uL RBC (4.00-5.50) x10^6/uL Hgb (12.0-16.0) g/dL Hct (33.0-47.0) % MCV (78.0-93.0) fL MCH (26.0-32.0) pg MCHC (32.0-36.0) g/dL RDW Coeff of Brianda (10.0-15.0) % Plt Count (130-400) x10^3/uL Neut % (Auto) (50.0-80.0) % Lymph % (Auto) (25.0-50.0) % Nuckolls % (Auto) (2.0-11.0) % Eos % (Auto) (0.0-4.0) % Baso % (Auto) (0.2-1.2) % Sodium (136-145) mmol/L Potassium (3.5-5.1) mmol/L Chloride (98-107) mmol/L Carbon Dioxide (21-32) mmol/L Anion Gap (10-20) mmol/L BUN (7-18) mg/dL Creatinine (0.55-1.02) mg/dL Est Cr Clr Drug Dosing Estimated GFR (MDRD) Glucose (74-106) mg/dL Lactic Acid (0.4-2.0) mmol/L Calcium (8.5-10.1) mg/dL Corrected Calcium (8.5-10.1) mg/dL Total Bilirubin (0.2-1.0) mg/dL AST (15-37) U/L ALT (14-59) U/L Alkaline Phosphatase (46-116) U/L C-Reactive Protein (<=0.9) mg/dL Total Protein (6.4-8.2) g/dL Albumin (3.4-5.0) g/dL Globulin Albumin/Globulin Ratio Urine Color Yellow (YELLOW) Urine Appearance Slightly cloudy H (CLEAR) Urine pH 6.5 (5.0-8.0) Ur Specific [place] 1.015 Urine Protein Trace H (NEGATIVE) mg/dL Urine Glucose (UA) Negative (NEGATIVE) mg/dL Urine Ketones Negative (NEGATIVE) mg/dL Urine Occult Blood Moderate H (NEGATIVE) Urine Nitrite Negative (NEGATIVE) Urine Bilirubin Negative (NEGATIVE) Urine Urobilinogen 0.2 (0.2) EU/dL Ur Leukocyte Esterase Negative (NEGATIVE) Urine RBC 10-20 H (NOT SEEN) /HPF Urine WBC 0-5 (NOT SEEN) /HPF Ur Squamous Epith Cells Few H (NEGATIVE) /HPF Urine Bacteria Rare (NEGATIVE) /HPF Urine Mucus Occasional H (NEGATIVE) /LPF Meds: Medications Generic Name Dose Route Start Last Admin Trade Name Freq PRN Reason Stop Dose Admin Metronidazole 500 mg/ Premix 100 mls @ 100 mls/hr 01/22/20 11:32 01/22/20 11: 48 IV 01/22/20 12:31 100 mls/hr ONETIME ONE Administration Discontinued Medications Generic Name Dose Route Start Last Admin Trade Name Freq PRN Reason Stop Dose Admin Diphenhydramine HCl 50 mg 01/22/20 10:05 01/22/20 10:22 Benadryl IVPUSH 01/22/20 10:06 50 mg ONETIME ONE Administration Hydromorphone HCl 0.5 mg 01/22/20 10:06 01/22/20 10:22 Dilaudid IVPUSH 01/22/20 10:07 0.5 mg ONETIME ONE Administration Hydromorphone HCl 0.5 mg 01/22/20 10:47 Dilaudid IVPUSH 01/22/20 10:48 ONETIME ONE Hydromorphone HCl 1 mg 01/22/20 10:54 01/22/20 10:59 Dilaudid IVPUSH 01/22/20 10:55 1 mg ONETIME ONE Administration Lactated Ringer's 1,000 mls @ 999 mls/hr 01/22/20 10:47 01/22/20 10:59 Ringers, Lactated IV 01/22/20 11:47 999 mls/hr ONETIME ONE Administration Vancomycin HCl 750 mg/ Sodium 250 mls @ 333 mls/hr 01/22/20 11:30 Chloride IV 01/22/20 12:15 STAT ONE Iopamidol 100 ml 01/22/20 11:16 01/22/20 11:18 Isovue-300 (61%) IVPUSH 01/22/20 11:17 100 ml ONETIME ONE Administration Ondansetron HCl 4 mg 01/22/20 10:05 01/22/20 10:22 Zofran IV 01/22/20 10:06 4 mg ONETIME ONE Administration - Radiology Interpretation Free Text/Narrative:: CT ABD pelvis with a [id number] rim-enhancing fluid collection extending from the anterior wall of the stomach to the skin surface is compatible with the clinical history of abscess. - Re-Assessments/Exams Free Text/Narrative Re-Assessment/Exam: 01/22/20 11:06 Port accessed Labs drawn as well as blood cultures. Pain and nausea medication and hydration. Will CT due to the location and past history of a G Tube in that place with recurrent abscess formation. 01/22/20 12:00 Tatyana and Doris after my extemporaneous review of the CT abd pelvis with concerns for a tracking abscess from the anterior aspect of the stomach to the superficial soft structures. Radiology report to follow. 01/22/20 12:34 Radiology anterior wall of the stomach to the skin compatible with an abscess. I called and spoke with Dr. Gustafson the [facility] surgeon stone processing machine operator at [place]. He had the CT scan available for review on report. He would like the patient transferred to [facility] for further evaluation and management. I discussed this with the patient. She was comfortable with this plan and her questions answered. Departure - Departure Time of Disposition: 12:28 Disposition: DC/Tfer to [facility] Clinical Impression: Intra-abdominal abscess - Discharge Information Referrals: Xiomy Oliva MD [Primary Care Provider] - Forms: ED Department Discharge, Interfacility Transfer EMTALA Sepsis Event Note - Focused Exam Vital Signs: Vital Signs Temp Pulse Resp BP Pulse Ox 03/16/20 10:00 36.4 C 90 16 127/61 100 Date Exam was Performed: 01/22/20 Time Exam was Performed: 12:28 - My Orders Last 24 Hours: My Active Orders 01/22/20 10:05 Blood Culture x2 Reflex Set [OM.PC] Stat 01/22/20 10:10 CULTURE BLOOD [BC] Stat 01/22/20 10:18 CULTURE BLOOD [BC] Stat 01/22/20 11:32 metroNIDAZOLE/Normal Saline [Flagyl 500 MG in NS 100 ML] 500 mg Premix Bag 1 bag IV ONETIME - Assessment/Plan Last 24 Hours: My Active Orders 01/22/20 10:05 Blood Culture x2 Reflex Set [OM.PC] Stat 01/22/20 10:10 CULTURE BLOOD [BC] Stat 01/22/20 10:18 CULTURE BLOOD [BC] Stat 01/22/20 11:32 metroNIDAZOLE/Normal Saline [Flagyl 500 MG in NS 100 ML] 500 mg Premix Bag 1 bag IV ONETIME Assessment:: Intra/external abd abscess. Plan: Transfer to [facility] by ground.
[2020-01-22] MEDS: diphenhydrAMINE 50 MG/ML SDV IVPUSH ONE (10:22)
[2020-01-22] MEDS: HYDROmorphone 1 MG/ML Syringe IVPUSH ONE ×3 (10:22→12:57)
[2020-01-22] MEDS: Ondansetron 4 MG/2 ML SDV IV ONE (10:22)
[2020-01-22] MEDS ORDERED: HYDROmorphone 1 MG/ML Syringe IVPUSH ONE (10:47)
[2020-01-22 10:49] LABS: CHLORIDE,CL 103 mmol/L (98-107); SODIUM,NA 137 mmol/L (136-145)
[2020-01-22 10:51] LABS: ANION GAP 15.2 mmol/L (10-20)
[2020-01-22] MEDS: Lactated Ringers 1,000 ML IV ONE (10:59)
[2020-01-22] MEDS: Iopamidol 612 MG/ML 100 ML Bottle IVPUSH ONE (11:18)
[2020-01-22] MEDS: metroNIDAZOLE/Normal Saline 500 MG in Premix Bag 1 BAG IV ONE (11:48)
--- NOTE | 2020-01-22 11:56 | CT ---
[id number] CT/CT Abdomen Pelvis W IV EXAM: ABDOMEN AND PELVIS CT WITH CONTRAST INDICATION: EPIGASTRIC ABSCESS, PREVIOUS G TUBE. COMPARISON: June 01, 2019. DISCUSSION: Extending from the anterior wall of the gastric body, through a ventral anterior abdominal wall CT defect into the subcutaneous tissues near the skin there is a 36 x 15 x 12 mm rim-enhancing fluid collection which would be compatible the clinical history of abscess. There is a thick-walled appearance of the colon extending from the level of the proximal transverse colon through the rectum compatible with colitis. Increased fluid volume within the proximal colon. Previous sigmoid colon resection. There are scattered subcentimeter hypodensities in the liver. Cholecystectomy. Multiple nonobstructing bilateral intrarenal calculi measuring up to 3 mm in diameter. The pancreas, spleen, adrenal glands and small bowel are unremarkable. The osseous structures are unremarkable. IMPRESSION: 1. A 36 x 15 x 12 mm rim-enhancing fluid collection extending from the anterior wall of the stomach to the skin surface is compatible the clinical history of abscess. 2. Mild to moderate colitis extending from the proximal colon to the rectum. Tej Turner MD 01/22/20 [id number] Thank you for allowing us to participate in the care of your patient.
== END 2020-01-22 13:05 | disposition short-term general hospital (02) ==
LOC: VM.ED 09:51
DX: K65.1 Peritoneal abscess (principal); F41.9 Anxiety disorder, unspecified; N18.9 Chronic kidney disease, unspecified; Z90.49 Acquired absence of other specified parts of digestive tract; Z88.5 Allergy status to narcotic agent; Z88.0 Allergy status to penicillin; Z88.8 Allergy status to other drugs, medicaments and biological substances; Z79.899 Other long term (current) drug therapy
CPT/HCPCS: 36415; 74177; 80053; 81001; 83605; 85025; 86140; 87040; 96361; 96365; 96367; 96375; 96376; 99285-25; J1170; J1200; J2405; J3370; J3490; J7050; J7120; Q9967

== ENCOUNTER 2020-01-29 14:37 | Emergency (ER) | payer BC, OTHER ==
[2020-01-29] MEDS ORDERED: Sodium Chloride 0.9% 10 ML Syringe FLUSH PRN (14:53)
[2020-01-29] MEDS: Sodium Chloride 0.9% 1,000 ML IV SCH (15:02)
--- NOTE | 2020-01-29 15:15 | EDM.PDOC ---
ED HPI GENERAL MEDICAL PROBLEM - General Stated Complaint: ER Time Seen by Provider: 01/29/20 14:37 Source of Information: Reports: Patient History Limitations: Reports: No Limitations - History of Present Illness INITIAL COMMENTS - FREE TEXT/NARRATIVE: Pt. presents to ER with complaints of surgical site redness, discharge and discomfort. Pt. underwent an incision and drainage of an abdominal wall abscess arising from the previous ostomy location from an old GJ tube. The tube was removed about a year ago and became noticeably erythematous and edematous on . She was subsequently transferred to [facility] and underwent incision and drainage of the abscess and was discharged on 01/25. The cultures grew mixed olya including Strep constellatus, Lactobacillus, E Faecalis, and yeast. She was sent home on home infusion of Daptomycin, Levaquin, Metronidazole, and Fluconazole. Post discharge, both the patient and home health have been packing the wound. Family states that they have been having problems with this, and state that they have only been able to pack a fraction of the wound compared to what was being done in the hospital. She has been followed by home health. They state that she was hypotensive with a BP 79 systolic at home. They are concerned that her extremities are dusky. Pt. reports that the discomfort is similar to what she was experiencing prior to incision and drainage of the abscess. Pt. reports being chilled but denies any fevers. No cough or chest congestion. Denies any ill contacts. Pt. denies any dysuria. She reports that he has been eating and drinking copiously. 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 (see below) (IV antibiotics) Abdominal / Wound Pain Pain Score (Numeric/FACES): 8 - Related Data Allergies Allergy/AdvReac Type Severity Reaction Status Date / Time codeine Allergy Severe Anaphylactic Verified 01/29/20 17:23 Shock Penicillins Allergy Severe Anaphylactic Verified 01/29/20 17:23 Shock acetaminophen Allergy Other Verified 01/29/20 17:23 [From Darvocet-N] propoxyphene Allergy Other Verified 01/29/20 17:23 [From Darvocet-N] morphine AdvReac Headache Verified 01/29/20 17:23 Home Meds: Home Meds Melatonin 6 mg PO BEDTIME 11/23/18 [History] Simethicone 80 mg PO QID PRN 11/23/18 [History] Amylase/Lipase/Protease [Johnna GALLAGHER 24,000 Unit] 2 cap PO TIDMEALS 02/22/19 [ History] azaTHIOprine [Imuran] 50 mg PO DAILY 02/22/19 [History] Lidocaine/Prilocaine [Lidocaine-Prilocaine Cream] 1 applic TOP DAILY PRN [History] predniSONE [Prednisone] 20 mg PO DAILY 04/14/19 [History] Menthol/Methyl Salicylate [Icy Hot] 1 applic TOP QID PRN 05/01/19 [History] Hydrocortisone [Anusol-HC] 1 applic RECTAL QID PRN 05/02/19 [History] Acetaminophen [Tylenol Solution 160 MG/5 ML] 650 mg PO Q6HR bottle 06/04/19 [Rx ] Heparin Sodium [Heparin Lock Flush] 500 units IVPUSH ASDIRECTED PRN syringe [Rx] Zinc Oxide 0 gm TOP Q2H PRN tube 06/04/19 [Rx] Ergocalciferol (Vitamin D2) [Drisdol] 50,000 unit PO WEEKLY 07/19/19 [History] Sertraline [Zoloft] 100 mg PO DAILY 08/23/19 [History] Cyclobenzaprine [Flexeril] 5 mg PO Q8H PRN 10/30/19 [History] Ondansetron [Zofran ODT] 8 mg PO Q8H PRN 12/19/19 [History] Past Medical History HEENT History: Reports: None Cardiovascular History: Reports: None Respiratory History: Reports: None Gastrointestinal History: Reports: GERD, Inflammatory Bowel Disease Other Gastrointestinal History: crohn's disease. 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 Musculoskeletal History: Reports: Back Pain, Chronic Neurological History: Reports: None Psychiatric History: Reports: Anxiety Endocrine/Metabolic History: Reports: None Hematologic History: Reports: Anemia Immunologic History: Reports: Immunosuppression Oncologic (Cancer) History: Reports: None Dermatologic History: Reports: None - Infectious Disease History Infectious Disease History: Reports: None - Past Surgical History GI Surgical History: Reports: Appendectomy, Cholecystectomy, Colonoscopy, Other (See Below) Other GI Surgeries/Procedures: partial sigmoidectomy Social & Family History - Family History Family Medical History: Noncontributory HEENT: Reports: None Cardiac: Reports: None GI: Reports: None OBGYN: Reports: None Neurological: Reports: Parkinson's Psychiatric: Reports: None Endocrine/Metabolic: Reports: None Immunologic: Reports: None Dermatologic: Reports: None Oncologic: Reports: Brain, Liver - Caffeine Use Caffeine Use: Reports: None Caffeine Use Comment: 2cups of coffee 1 - 2 bottles of pop - Living Situation & Occupation Living situation: Reports: , with Significant Other (from [place] but staying with her daughter in [place]) 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 Denies: Shortness of Breath, Cough, Sputum Cardiovascular: Reports: No Symptoms Endocrine: Reports: No Symptoms GI/Abdominal: Reports: Abdominal Pain, Other (see HPI) : Reports: No Symptoms Musculoskeletal: Reports: No Symptoms Skin: Reports: No Symptoms Neurological: Reports: No Symptoms Psychiatric: Reports: No Symptoms Hematologic/Lymphatic: Reports: No Symptoms Immunologic: Reports: No Symptoms ED EXAM, GENERAL - Physical Exam Exam: See Below Exam Limited By: No Limitations General Appearance: Alert, WD/WN, No Apparent Distress Nose: Normal Inspection, No Blood Throat/Mouth: Normal Voice, No Airway Compromise Neck: Normal Inspection, Supple, Non-Tender, Full Range of Motion Respiratory/Chest: No Respiratory Distress, Lungs Clear, Normal Breath Sounds, No Accessory Muscle Use, Chest Non-Tender Cardiovascular: Normal Peripheral Pulses, Regular Rate, Rhythm, No Edema, No Gallop, No JVD, No Murmur, No Rub GI/Abdominal: Soft, No Organomegaly, Tender, Other (small packed incision to mid abdominal area. No significant cellulitis. No copious discharge. Scant amount of purulent material noted to the packing. Packing length approx. 3 cm. No large amount of discharge/drainage. No palpable masses noted.) (Female) Exam: Deferred Rectal (Female) Exam: Deferred Back Exam: Normal Inspection, Full Range of Motion Extremities: Normal Inspection, Non-Tender, Normal Capillary Refill, Other ( Extremities and lips dusky as per home health. I have taken care of this patient numerous times and this does not appear to be far from her baseline.) Neurological: Alert, Oriented, CN II-XII Intact, Normal Cognition, Normal Gait, Normal Reflexes, No Motor/Sensory Deficits Psychiatric: Normal Affect, Normal Mood Skin Exam: Warm, Dry, No Rash, Other (see above) Course - Vital Signs Last Recorded V/S: Last Vital Signs Temp 36.6 C 01/29/20 17:28 Pulse 80 01/29/20 17:28 Resp 14 01/29/20 17:28 BP 110/60 01/29/20 17:28 Pulse Ox 99 01/29/20 17:28 - Orders/Labs/Meds Orders: Active Orders 24 hr Category Date Time Status CULTURE BLOOD [BC] Stat Lab 01/29/20 15:02 Received CULTURE BLOOD [BC] Stat Lab 01/29/20 15:18 Received Sodium Chloride 0.9% [Normal Saline] 1,000 ml Med 01/29/20 15:00 Active IV ASDIRECTED Sodium Chloride 0.9% [Saline Flush] Med 01/29/20 14:53 Active 10 ml FLUSH ASDIRECTED PRN Blood Culture x2 Reflex Set [OM.PC] Stat Oth 01/29/20 14:54 Ordered Peripheral IV Insertion Adult [OM.PC] Routine Oth 01/29/20 14:54 Ordered Medication Orders Sodium Chloride (Normal Saline) 1,000 mls @ 1,000 mls/hr IV ASDIRECTED MARY Last Admin: 01/29/20 15:02 Dose: 1,000 mls/hr Sodium Chloride (Saline Flush) 10 ml FLUSH ASDIRECTED PRN PRN Reason: Keep Vein Open Labs: Laboratory Tests 01/29/20 01/29/20 01/29/20 Range/Units 15:02 15:02 15:02 WBC 12.4 H (4.0-10.0) x10^3/uL RBC 4.43 (4.00-5.50) x10^6/uL Hgb 14.8 D (12.0-16.0) g/dL Hct 45.7 (33.0-47.0) % MCV 103.2 H (78.0-93.0) fL MCH 33.4 H (26.0-32.0) pg MCHC 32.4 (32.0-36.0) g/dL RDW Coeff of Brianda 13.5 (10.0-15.0) % Plt Count 471 H (130-400) x10^3/uL Add Manual Diff Yes Neutrophils % (Manual) 68 (50-80) % Band Neutrophils % 1 (0-6) % Lymphocytes % (Manual) 18 L (25-50) % Monocytes % (Manual) 9 (2-11) % Eosinophils % (Manual) 3 (0-4) % Basophils % (Manual) 1 (0-1) % Anisocytosis 1+ slight H Macrocytosis 1+ slight H Spherocytes PT 10.3 (10.0-12.8) SEC INR 0.9 L (2.0-3.5) Sodium 144 (136-145) mmol/L Potassium 3.8 (3.5-5.1) mmol/L Chloride 108 H (98-107) mmol/L Carbon Dioxide 22 (21-32) mmol/L Anion Gap 17.8 (10-20) mmol/L BUN 35 H (7-18) mg/dL Creatinine 2.5 H (0.55-1.02) mg/dL Est Cr Clr Drug Dosing 17.93 mL/min Estimated GFR (MDRD) 21 Glucose 100 (74-106) mg/dL Lactic Acid (0.4-2.0) mmol/L Calcium 9.2 (8.5-10.1) mg/dL Corrected Calcium 9.68 (8.5-10.1) mg/dL Magnesium 2.1 (1.8-2.4) mg/dL Total Bilirubin 0.2 (0.2-1.0) mg/dL AST 18 (15-37) U/L ALT 31 (14-59) U/L Alkaline Phosphatase 63 (46-116) U/L C-Reactive Protein < 0.2 (<=0.9) mg/dL Total Protein 7.6 (6.4-8.2) g/dL Albumin 3.4 (3.4-5.0) g/dL Globulin 4.2 Albumin/Globulin Ratio 0.81 Urine Color (YELLOW) Urine Appearance (CLEAR) Urine pH (5.0-8.0) Ur Specific [place] Urine Protein (NEGATIVE) mg/dL Urine Glucose (UA) (NEGATIVE) mg/dL Urine Ketones (NEGATIVE) mg/dL Urine Occult Blood (NEGATIVE) Urine Nitrite (NEGATIVE) Urine Bilirubin (NEGATIVE) Urine Urobilinogen (0.2) EU/dL Ur Leukocyte Esterase (NEGATIVE) Urine RBC (NOT SEEN) /HPF Urine WBC (NOT SEEN) /HPF Ur Squamous Epith Cells (NEGATIVE) /HPF Amorphous Sediment Urine Bacteria (NEGATIVE) /HPF Urine Mucus (NEGATIVE) /LPF 01/29/20 01/29/20 Range/Units 15:02 16:03 WBC (4.0-10.0) x10^3/uL RBC (4.00-5.50) x10^6/uL Hgb (12.0-16.0) g/dL Hct (33.0-47.0) % MCV (78.0-93.0) fL MCH (26.0-32.0) pg MCHC (32.0-36.0) g/dL RDW Coeff of Brianda (10.0-15.0) % Plt Count (130-400) x10^3/uL Add Manual Diff Neutrophils % (Manual) (50-80) % Band Neutrophils % (0-6) % Lymphocytes % (Manual) (25-50) % Monocytes % (Manual) (2-11) % Eosinophils % (Manual) (0-4) % Basophils % (Manual) (0-1) % Anisocytosis Macrocytosis Spherocytes PT (10.0-12.8) SEC INR (2.0-3.5) Sodium (136-145) mmol/L Potassium (3.5-5.1) mmol/L Chloride (98-107) mmol/L Carbon Dioxide (21-32) mmol/L Anion Gap (10-20) mmol/L BUN (7-18) mg/dL Creatinine (0.55-1.02) mg/dL Est Cr Clr Drug Dosing mL/min Estimated GFR (MDRD) Glucose (74-106) mg/dL Lactic Acid 0.6 (0.4-2.0) mmol/L Calcium (8.5-10.1) mg/dL Corrected Calcium (8.5-10.1) mg/dL Magnesium (1.8-2.4) mg/dL Total Bilirubin (0.2-1.0) mg/dL AST (15-37) U/L ALT (14-59) U/L Alkaline Phosphatase (46-116) U/L C-Reactive Protein (<=0.9) mg/dL Total Protein (6.4-8.2) g/dL Albumin (3.4-5.0) g/dL Globulin Albumin/Globulin Ratio Urine Color Dark yellow H (YELLOW) Urine Appearance Cloudy H (CLEAR) Urine pH 6.0 (5.0-8.0) Ur Specific [place] 1.020 Urine Protein 30 H (NEGATIVE) mg/dL Urine Glucose (UA) Negative (NEGATIVE) mg/dL Urine Ketones Negative (NEGATIVE) mg/dL Urine Occult Blood Moderate H (NEGATIVE) Urine Nitrite Negative (NEGATIVE) Urine Bilirubin Negative (NEGATIVE) Urine Urobilinogen 0.2 (0.2) EU/dL Ur Leukocyte Esterase Negative (NEGATIVE) Urine RBC 20-30 H (NOT SEEN) /HPF Urine WBC 0-5 (NOT SEEN) /HPF Ur Squamous Epith Cells Few H (NEGATIVE) /HPF Amorphous Sediment Few Urine Bacteria Few H (NEGATIVE) /HPF Urine Mucus Few H (NEGATIVE) /LPF Meds: Medications Generic Name Dose Route Start Last Admin Trade Name Freq PRN Reason Stop Dose Admin Sodium Chloride 1,000 mls @ 1,000 mls/hr 01/29/20 15:00 01/29/20 15:02 Normal Saline IV 1,000 mls/hr ASDIRECTED MARY Administration Sodium Chloride 10 ml 01/29/20 14:53 Saline Flush FLUSH ASDIRECTED PRN Keep Vein Open Discontinued Medications Generic Name Dose Route Start Last Admin Trade Name Freq PRN Reason Stop Dose Admin Oxycodone HCl 5 mg 01/29/20 15:39 01/29/20 15:57 Oxycodone PO 01/29/20 15:40 5 mg ONETIME ONE Administration - Radiology Interpretation Free Text/Narrative:: CT abdomen and pelvis without contast was obtained after discussing case with Dr. Sow/Jasmyne. Abscess was decompressed with no new inflammatory findings noted. Continued dilated bowel loops noted as previous. Departure - Departure Time of Disposition: 17:49 Disposition: Home, Self-Care 01 Clinical Impression: Dehydration Abdominal pain Qualifiers: Abdominal location: unspecified location Qualified Code(s): R10.9 - Unspecified abdominal pain - Discharge Information Referrals: Xiomy Oliva MD [Primary Care Provider] - Forms: ED Department Discharge Additional Instructions: Continue with your current antibiotics. The abscess is decompressed and there appears to be no fluid collection that needs further intervention. It will be normal to have some discharge, as there is a complex infection in the area. Hopefully the antibiotics will take care of this and they appear to be working as there is no new abscess, evidence of cellulitis, etc. Continue with dressing changes per home health. Fastidious sterile technique is of upmost importance to avoid further contamination. Follow-up with surgery on Wednesday. It is important to drink plenty of fluids. They may want to start you back on IV fluids if you are unable to consume an adequate amount of water. You were moderately dehydrated today. Sepsis Event Note - Focused Exam Vital Signs: Vital Signs Temp Pulse Resp BP Pulse Ox 01/29/20 17:28 36.6 C 80 14 110/60 99 01/29/20 15:30 36.3 C 89 16 111/64 100 01/29/20 14:40 34.7 C L 94 16 103/45 L 100 Date Exam was Performed: 01/29/20 Time Exam was Performed: 17:47 - My Orders Last 24 Hours: My Active Orders 01/29/20 14:53 Sodium Chloride 0.9% [Saline Flush] 10 ml FLUSH ASDIRECTED PRN 01/29/20 14:54 Blood Culture x2 Reflex Set [OM.PC] Stat Peripheral IV Insertion Adult [OM.PC] Routine 01/29/20 15:00 Sodium Chloride 0.9% [Normal Saline] 1,000 ml IV ASDIRECTED 01/29/20 15:02 CULTURE BLOOD [BC] Stat 01/29/20 15:18 CULTURE BLOOD [BC] Stat - Assessment/Plan Last 24 Hours: My Active Orders 01/29/20 14:53 Sodium Chloride 0.9% [Saline Flush] 10 ml FLUSH ASDIRECTED PRN 01/29/20 14:54 Blood Culture x2 Reflex Set [OM.PC] Stat Peripheral IV Insertion Adult [OM.PC] Routine 01/29/20 15:00 Sodium Chloride 0.9% [Normal Saline] 1,000 ml IV ASDIRECTED 01/29/20 15:02 CULTURE BLOOD [BC] Stat 01/29/20 15:18 CULTURE BLOOD [BC] Stat Plan: Continue with your current antibiotics. The abscess is decompressed and there appears to be no fluid collection that needs further intervention. It will be normal to have some discharge, as there is a complex infection in the area. Hopefully the antibiotics will take care of this and they appear to be working as there is no new abscess, evidence of cellulitis, etc. Continue with dressing changes per home health. Fastidious sterile technique is of upmost importance to avoid further contamination. Follow-up with surgery on Wednesday. It is important to drink plenty of fluids. They may want to start you back on IV fluids if you are unable to consume an adequate amount of water. You were moderately dehydrated today.
--- NOTE | 2020-01-29 15:31 | CR ---
[id number] RAD/RAD Chest PA or AP 1V Exam: RAD Chest PA or AP 1V Indication:CHILLS, HYPOTENSION. Comparison: May 27, 2019. Discussion: No radiographic evidence of pneumonia. No pneumothorax or effusion. Heart is normal in size. 10 mm nodular opacity projects over the left lung base not seen previously. Differential diagnosis includes summation artifact from overlapping structures in the chest wall versus a pulmonary nodule. Noncontrast chest CT is recommended. Impression: No acute cardiopulmonary abnormality. Other findings are described above with recommendations. Morgan Nye MD 01/29/20 1529 Thank you for allowing us to participate in the care of your patient.
[2020-01-29 15:49] LABS: CHLORIDE,CL 108 mmol/L (98-107); SODIUM,NA 144 mmol/L (136-145)
[2020-01-29 15:53] LABS: ANION GAP 17.8 mmol/L (10-20)
[2020-01-29] MEDS: oxyCODONE 5 MG Tab PO ONE (15:57)
--- NOTE | 2020-01-29 17:39 | CT ---
[id number] CT/CT Abdomen Pelvis WO IV EXAM: ABDOMEN AND PELVIS CT WITH CONTRAST INDICATION: ABDOMINAL DISCOMFORT, RECENT ABSCESS. COMPARISON: January 22, 2020. DISCUSSION: The previously identified rim-enhancing fluid collection within the anterior abdominal wall is decompressed. No definite residual fluid collection is identified. There is minimal inflammatory change in this region. There is a thick-walled appearance of the colon extending from the level of the proximal transverse colon through the rectum compatible with colitis. Increased fluid volume within the proximal colon. These findings are not significantly changed when compared to the prior. Previous sigmoid colon resection. There are scattered subcentimeter hypodensities in the liver. The gallbladder surgically absent.. Multiple nonobstructing bilateral intrarenal calculi measuring up to 3 mm in diameter. These are not significantly changed. The pancreas, spleen, and adrenal glands are unremarkable. The osseous structures are unremarkable. IMPRESSION: 1. Complete decompression of previously identified anterior abdominal wall fluid collection consistent with abscess. There is minimal inflammatory change within this region. No new fluid collections are identified. 2. Again identified are fluid distended loops of colon with wall thickening. This is not definitely changed compared to the prior study and may suggest acute or chronic inflammation. Maikel Medley DO 01/29/20 2133 Thank you for allowing us to participate in the care of your patient.
== END 2020-01-29 17:57 | disposition home or self-care (01) ==
LOC: VM.ED 14:37
DX: R10.9 Unspecified abdominal pain (principal); E86.0 Dehydration; N18.9 Chronic kidney disease, unspecified; F41.9 Anxiety disorder, unspecified; Z90.49 Acquired absence of other specified parts of digestive tract; Z88.5 Allergy status to narcotic agent; Z88.0 Allergy status to penicillin; Z88.8 Allergy status to other drugs, medicaments and biological substances; Z79.899 Other long term (current) drug therapy
CPT/HCPCS: 36415; 71045; 74176; 80053; 81001; 83605; 83735; 85025; 85610; 86140; 87040; 96360; 99284-25; A9270-GY; J7030

== ENCOUNTER 2020-02-07 14:15 | Emergency (ER) | payer BC, OTHER ==
[2020-02-07] MEDS: Lactated Ringers 1,000 ML IV ONE (14:56)
[2020-02-07] MEDS: Ondansetron 4 MG/2 ML SDV IV ONE (15:14)
[2020-02-07] MEDS: Dicyclomine 20 MG/2 ML SDV IM ONE (15:18)
[2020-02-07 15:21] LABS: CHLORIDE,CL 102 mmol/L (98-107); SODIUM,NA 138 mmol/L (136-145)
[2020-02-07 15:22] LABS: ANION GAP 20.8 mmol/L (10-20)
[2020-02-07] MEDS: Haloperidol Lactate 5 MG/ML SDV IV ONE (15:22)
[2020-02-07 15:45] LABS: BARBITURATE SCREEN,URINE NEGATIVE (NEGATIVE); BENZODIAZEPINES SCREEN,URINE NEGATIVE (NEGATIVE); EDDP,URINE SCREEN NEGATIVE (NEGATIVE); METHAMPHETAMINE SCREEN, URINE NEGATIVE (NEGATIVE)
[2020-02-07 15:46] LABS: TCA SCREEN,URINE POSITIVE (NEGATIVE); THC SCREEN,URINE 50 NG/ML NEGATIVE (NEGATIVE)
[2020-02-07] MEDS: Dextrose 5%-Lactated Ringers 1,000 ML IV SCH (15:48)
--- NOTE | 2020-02-07 17:40 | EDM.PDOC ---
ED HPI GENERAL MEDICAL PROBLEM - General Chief Complaint: Abdominal Pain Stated Complaint: NAUSEA PAIN DIARRHEA Time Seen by Provider: 02/07/20 14:56 Source of Information: Reports: Patient History Limitations: Reports: No Limitations - History of Present Illness INITIAL COMMENTS - FREE TEXT/NARRATIVE: Patient comes emergency department today from home with concerns of nausea vomiting and diarrhea. This is a very chronically ill GI patient with chronic abdominal pain nausea vomiting kidney disease Crohn's disease and abdominal pain. She was just recently seen by myself was diagnosed with a GJ site abscess that she had drained at the bedside. She was sent home on multiple antibiotics. She has had increasing nausea and vomiting at home. She has been unable to eat or drink or keep anything down. She has had 15-20 bouts of diarrhea a day and had stool cultures that she reports is negative for C. difficile or any other infection. Feels very tired. She has almost constant lysed abdominal pain. She has no hematuria dysuria or urinary frequency. She denies fever but does complain of chills. She feels quite weak. From her visit yesterday in the clinic she is down already 4 pounds. Is not been able to take her Remicade recently due to her antibiotic usage. Dates that this feels more like a flare of her Crohn's versus the abscess on her GJ site. Is been on prednisone daily 40 mg for the last couple of weeks to try to control her Crohn's. Abdominal Pain Pain Score (Numeric/FACES): 9 - Related Data Allergies Allergy/AdvReac Type Severity Reaction Status Date / Time codeine Allergy Severe Anaphylactic Verified 02/07/20 14:58 Shock Penicillins Allergy Severe Anaphylactic Verified 02/07/20 14:58 Shock acetaminophen Allergy Other Verified 02/07/20 14:58 [From Darvocet-N] propoxyphene Allergy Other Verified 02/07/20 14:58 [From Darvocet-N] morphine AdvReac Headache Verified 02/07/20 14:58 Home Meds: Home Meds Melatonin 6 mg PO BEDTIME 11/23/18 [History] Simethicone 80 mg PO QID PRN 11/23/18 [History] Amylase/Lipase/Protease [Johnna GALLAGHER 24,000 Unit] 2 cap PO TIDMEALS 02/22/19 [ History] azaTHIOprine [Imuran] 50 mg PO DAILY 02/22/19 [History] Lidocaine/Prilocaine [Lidocaine-Prilocaine Cream] 1 applic TOP DAILY PRN [History] predniSONE [Prednisone] 20 mg PO DAILY 04/14/19 [History] Menthol/Methyl Salicylate [Icy Hot] 1 applic TOP QID PRN 05/01/19 [History] Hydrocortisone [Anusol-HC] 1 applic RECTAL QID PRN 05/02/19 [History] Acetaminophen [Tylenol Solution 160 MG/5 ML] 650 mg PO Q6HR bottle 06/04/19 [Rx ] Heparin Sodium [Heparin Lock Flush] 500 units IVPUSH ASDIRECTED PRN syringe [Rx] Zinc Oxide 0 gm TOP Q2H PRN tube 06/04/19 [Rx] Ergocalciferol (Vitamin D2) [Drisdol] 50,000 unit PO WEEKLY 07/19/19 [History] Sertraline [Zoloft] 100 mg PO DAILY 08/23/19 [History] Cyclobenzaprine [Flexeril] 5 mg PO Q8H PRN 10/30/19 [History] Ondansetron [Zofran ODT] 8 mg PO Q8H PRN 12/19/19 [History] Past Medical History HEENT History: Reports: None Cardiovascular History: Reports: None Respiratory History: Reports: None Other Respiratory History: Chronic Cough Gastrointestinal History: Reports: GERD, Inflammatory Bowel Disease Other Gastrointestinal History: crohn's disease. colitis Genitourinary History: Reports: Acute Renal Failure, Chronic Renal Insuffiency Other Genitourinary History: Acute renal failure superimposed on stage 3 kidney disease. Acute kidney injury. 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 Severe protien - calorie malnutrition. Immunosuppression Hematologic History: Reports: Anemia Immunologic History: Reports: Immunosuppression Oncologic (Cancer) History: Reports: None Dermatologic History: Reports: None - Infectious Disease History Infectious Disease History: Reports: None - Past Surgical History Head Surgeries/Procedures: Reports: None GI Surgical History: Reports: Appendectomy, Cholecystectomy, Colonoscopy, Other (See Below) Other GI Surgeries/Procedures: partial sigmoidectomy Social & Family History - Family History Family Medical History: Noncontributory HEENT: Reports: None Cardiac: Reports: None GI: Reports: None OBGYN: Reports: None Neurological: Reports: Parkinson's Psychiatric: Reports: None Endocrine/Metabolic: Reports: None Immunologic: Reports: None Dermatologic: Reports: None Oncologic: Reports: Brain, Liver - Tobacco Use Smoking Status *Q: Never Smoker - Caffeine Use Caffeine Use: Reports: None Caffeine Use Comment: 2cups of coffee 1 - 2 bottles of pop - Recreational Drug Use Recreational Drug Use: No - Living Situation & Occupation Living situation: Reports: , with Significant Other (from [place] but staying with her daughter in [place]) 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 ED EXAM, GI/ABD - Physical Exam Exam: See Below Text/Narrative:: This is a very cachectic appearing female Exam Limited By: No Limitations General Appearance: Alert, Thin, Cachetic Eyes: Bilateral: EOMI Ears: Normal External Exam Nose: Normal Inspection Throat/Mouth: Normal Inspection Head: Atraumatic, Normocephalic Neck: Normal Inspection Respiratory/Chest: No Respiratory Distress, Lungs Clear, No Accessory Muscle Use Cardiovascular: Normal Peripheral Pulses, Regular Rate, Rhythm GI/Abdominal Exam: Normal Bowel Sounds, Soft, Tender (Has generalized tenderness throughout her abdomen without any guarding or rebound.), Other (The epigastric GJ site is well-healed without any erythema induration or swelling.) Back Exam: Normal Inspection Extremities: Normal Inspection, Normal Range of Motion, No Pedal Edema Neurological: Alert, Oriented, Normal Cognition, No Motor/Sensory Deficits Psychiatric: Normal Affect, Normal Mood Skin Exam: Warm, Dry, Intact Course - Vital Signs Last Recorded V/S: Last Vital Signs Temp 36.1 C 02/07/20 17:41 Pulse 82 02/07/20 17:41 Resp 16 02/07/20 17:41 BP 105/60 02/07/20 17:41 Pulse Ox 100 02/07/20 17:41 - Orders/Labs/Meds Orders: Active Orders 24 hr Category Date Time Status CULTURE URINE [RM] Stat Lab 02/07/20 15:35 Received Dextrose 5%-Lactated Ringers 1,000 ml Med 02/07/20 16:00 Active IV ASDIRECTED Medication Orders Dextrose/Lactated Ringer's (Dextrose 5%-Lactated Ringers) 1,000 mls @ 500 mls/ hr IV ASDIRECTED MARY Last Admin: 02/07/20 15:48 Dose: 500 mls/hr Labs: Laboratory Tests 02/07/20 02/07/20 02/07/20 Range/Units 14:56 14:56 14:56 WBC 13.3 H (4.0-10.0) x10^3/uL RBC 4.94 (4.00-5.50) x10^6/uL Hgb 16.5 H D (12.0-16.0) g/dL Hct 50.3 H (33.0-47.0) % MCV 101.8 H (78.0-93.0) fL MCH 33.4 H (26.0-32.0) pg MCHC 32.8 (32.0-36.0) g/dL RDW Coeff of Brianda 13.6 (10.0-15.0) % Plt Count 367 D (130-400) x10^3/uL Neut % (Auto) 84.6 H (50.0-80.0) % Lymph % (Auto) 9.3 L (25.0-50.0) % [place] % (Auto) 3.9 (2.0-11.0) % Eos % (Auto) 1.7 (0.0-4.0) % Baso % (Auto) 0.5 (0.2-1.2) % ESR (0-20) mm/hr Sodium 138 (136-145) mmol/L Potassium 4.8 (3.5-5.1) mmol/L Chloride 102 (98-107) mmol/L Carbon Dioxide 20 L (21-32) mmol/L Anion Gap 20.8 H (10-20) mmol/L BUN 35 H (7-18) mg/dL Creatinine 2.1 H (0.55-1.02) mg/dL Est Cr Clr Drug Dosing 19.45 mL/min Estimated GFR (MDRD) 25 Glucose 96 (74-106) mg/dL Lactic Acid 1.1 (0.4-2.0) mmol/L Calcium 9.3 (8.5-10.1) mg/dL Corrected Calcium 9.22 (8.5-10.1) mg/dL Magnesium 2.8 H (1.8-2.4) mg/dL Total Bilirubin 0.4 (0.2-1.0) mg/dL AST 39 H (15-37) U/L ALT 68 H (14-59) U/L Alkaline Phosphatase 71 (46-116) U/L Creatine Kinase (26-192) U/L C-Reactive Protein < 0.2 (<=0.9) mg/dL Total Protein 8.0 (6.4-8.2) g/dL Albumin 4.1 (3.4-5.0) g/dL Globulin 3.9 Albumin/Globulin Ratio 1.05 Lipase 1428 H (73-393) U/L Urine Color (YELLOW) Urine Appearance (CLEAR) Urine pH (5.0-8.0) Ur Specific [place] Urine Protein (NEGATIVE) mg/dL Urine Glucose (UA) (NEGATIVE) mg/dL Urine Ketones (NEGATIVE) mg/dL Urine Occult Blood (NEGATIVE) Urine Nitrite (NEGATIVE) Urine Bilirubin (NEGATIVE) Urine Urobilinogen (0.2) EU/dL Ur Leukocyte Esterase (NEGATIVE) U Hyaline Cast (Auto) Urine RBC (NOT SEEN) /HPF Urine WBC (NOT SEEN) /HPF Ur Squamous Epith Cells (NEGATIVE) /HPF Urine Bacteria (NEGATIVE) /HPF Granular Casts (Auto) Urine Mucus (NEGATIVE) /LPF Urine Opiates Screen (NEGATIVE) Ur Buprenorphine Scrn (NEGATIVE) Ur Oxycodone Screen (NEGATIVE) Ur EDDP (Meth Metab) (NEGATIVE) Urine Methadone Screen (NEGATIVE) Ur Barbiturates Screen (NEGATIVE) Ur Tricyclics Screen (NEGATIVE) Ur Phencyclidine Scrn (NEGATIVE) Ur Amphetamine Screen (NEGATIVE) U Methamphetamines Scrn (NEGATIVE) Urine MDMA Screen (NEGATIVE) U Benzodiazepines Scrn (NEGATIVE) U Cocaine Metab Screen (NEGATIVE) U Marijuana (THC) Screen (NEGATIVE) 02/07/20 02/07/20 02/07/20 Range/Units 14:56 14:56 15:35 WBC (4.0-10.0) x10^3/uL RBC (4.00-5.50) x10^6/uL Hgb (12.0-16.0) g/dL Hct (33.0-47.0) % MCV (78.0-93.0) fL MCH (26.0-32.0) pg MCHC (32.0-36.0) g/dL RDW Coeff of Brianda (10.0-15.0) % Plt Count (130-400) x10^3/uL Neut % (Auto) (50.0-80.0) % Lymph % (Auto) (25.0-50.0) % [place] % (Auto) (2.0-11.0) % Eos % (Auto) (0.0-4.0) % Baso % (Auto) (0.2-1.2) % ESR 13 (0-20) mm/hr Sodium (136-145) mmol/L Potassium (3.5-5.1) mmol/L Chloride (98-107) mmol/L Carbon Dioxide (21-32) mmol/L Anion Gap (10-20) mmol/L BUN (7-18) mg/dL Creatinine (0.55-1.02) mg/dL Est Cr Clr Drug Dosing mL/min Estimated GFR (MDRD) Glucose (74-106) mg/dL Lactic Acid (0.4-2.0) mmol/L Calcium (8.5-10.1) mg/dL Corrected Calcium (8.5-10.1) mg/dL Magnesium (1.8-2.4) mg/dL Total Bilirubin (0.2-1.0) mg/dL AST (15-37) U/L ALT (14-59) U/L Alkaline Phosphatase (46-116) U/L Creatine Kinase 85 (26-192) U/L C-Reactive Protein (<=0.9) mg/dL Total Protein (6.4-8.2) g/dL Albumin (3.4-5.0) g/dL Globulin Albumin/Globulin Ratio Lipase (73-393) U/L Urine Color Yellow (YELLOW) Urine Appearance Slightly cloudy H (CLEAR) Urine pH 5.0 (5.0-8.0) Ur Specific [place] 1.020 Urine Protein 100 H (NEGATIVE) mg/dL Urine Glucose (UA) Negative (NEGATIVE) mg/dL Urine Ketones Negative (NEGATIVE) mg/dL Urine Occult Blood Moderate H (NEGATIVE) Urine Nitrite Negative (NEGATIVE) Urine Bilirubin Negative (NEGATIVE) Urine Urobilinogen 0.2 (0.2) EU/dL Ur Leukocyte Esterase Trace H (NEGATIVE) U Hyaline Cast (Auto) Few Urine RBC 30-40 H (NOT SEEN) /HPF Urine WBC 5-10 H (NOT SEEN) /HPF Ur Squamous Epith Cells Few H (NEGATIVE) /HPF Urine Bacteria Occasional H (NEGATIVE) /HPF Granular Casts (Auto) Occasional Urine Mucus Few H (NEGATIVE) /LPF Urine Opiates Screen (NEGATIVE) Ur Buprenorphine Scrn (NEGATIVE) Ur Oxycodone Screen (NEGATIVE) Ur EDDP (Meth Metab) (NEGATIVE) Urine Methadone Screen (NEGATIVE) Ur Barbiturates Screen (NEGATIVE) Ur Tricyclics Screen (NEGATIVE) Ur Phencyclidine Scrn (NEGATIVE) Ur Amphetamine Screen (NEGATIVE) U Methamphetamines Scrn (NEGATIVE) Urine MDMA Screen (NEGATIVE) U Benzodiazepines Scrn (NEGATIVE) U Cocaine Metab Screen (NEGATIVE) U Marijuana (THC) Screen (NEGATIVE) 02/07/20 Range/Units 15:35 WBC (4.0-10.0) x10^3/uL RBC (4.00-5.50) x10^6/uL Hgb (12.0-16.0) g/dL Hct (33.0-47.0) % MCV (78.0-93.0) fL MCH (26.0-32.0) pg MCHC (32.0-36.0) g/dL RDW Coeff of Brianda (10.0-15.0) % Plt Count (130-400) x10^3/uL Neut % (Auto) (50.0-80.0) % Lymph % (Auto) (25.0-50.0) % [place] % (Auto) (2.0-11.0) % Eos % (Auto) (0.0-4.0) % Baso % (Auto) (0.2-1.2) % ESR (0-20) mm/hr Sodium (136-145) mmol/L Potassium (3.5-5.1) mmol/L Chloride (98-107) mmol/L Carbon Dioxide (21-32) mmol/L Anion Gap (10-20) mmol/L BUN (7-18) mg/dL Creatinine (0.55-1.02) mg/dL Est Cr Clr Drug Dosing mL/min Estimated GFR (MDRD) Glucose (74-106) mg/dL Lactic Acid (0.4-2.0) mmol/L Calcium (8.5-10.1) mg/dL Corrected Calcium (8.5-10.1) mg/dL Magnesium (1.8-2.4) mg/dL Total Bilirubin (0.2-1.0) mg/dL AST (15-37) U/L ALT (14-59) U/L Alkaline Phosphatase (46-116) U/L Creatine Kinase (26-192) U/L C-Reactive Protein (<=0.9) mg/dL Total Protein (6.4-8.2) g/dL Albumin (3.4-5.0) g/dL Globulin Albumin/Globulin Ratio Lipase (73-393) U/L Urine Color (YELLOW) Urine Appearance (CLEAR) Urine pH (5.0-8.0) Ur Specific [place] Urine Protein (NEGATIVE) mg/dL Urine Glucose (UA) (NEGATIVE) mg/dL Urine Ketones (NEGATIVE) mg/dL Urine Occult Blood (NEGATIVE) Urine Nitrite (NEGATIVE) Urine Bilirubin (NEGATIVE) Urine Urobilinogen (0.2) EU/dL Ur Leukocyte Esterase (NEGATIVE) U Hyaline Cast (Auto) Urine RBC (NOT SEEN) /HPF Urine WBC (NOT SEEN) /HPF Ur Squamous Epith Cells (NEGATIVE) /HPF Urine Bacteria (NEGATIVE) /HPF Granular Casts (Auto) Urine Mucus (NEGATIVE) /LPF Urine Opiates Screen Negative (NEGATIVE) Ur Buprenorphine Scrn Negative (NEGATIVE) Ur Oxycodone Screen Negative (NEGATIVE) Ur EDDP (Meth Metab) Negative (NEGATIVE) Urine Methadone Screen Negative (NEGATIVE) Ur Barbiturates Screen Negative (NEGATIVE) Ur Tricyclics Screen Positive H (NEGATIVE) Ur Phencyclidine Scrn Negative (NEGATIVE) Ur Amphetamine Screen Negative (NEGATIVE) U Methamphetamines Scrn Negative (NEGATIVE) Urine MDMA Screen Negative (NEGATIVE) U Benzodiazepines Scrn Negative (NEGATIVE) U Cocaine Metab Screen Negative (NEGATIVE) U Marijuana (THC) Screen Negative (NEGATIVE) Meds: Medications Generic Name Dose Route Start Last Admin Trade Name Freq PRN Reason Stop Dose Admin Dextrose/Lactated Ringer's 1,000 mls @ 500 mls/hr 02/07/20 16:00 02/07/20 15: 48 Dextrose 5%-Lactated Ringers IV 500 mls/hr ASDIRECTED MARY Administration Discontinued Medications Generic Name Dose Route Start Last Admin Trade Name Jocelyn PRN Reason Stop Dose Admin Dicyclomine HCl 20 mg 02/07/20 15:04 02/07/20 15:18 Bentyl IM 02/07/20 15:05 20 mg ONETIME ONE Administration Haloperidol Lactate 2.5 mg 02/07/20 15:04 02/07/20 15:22 Haldol IV 02/07/20 15:05 2.5 mg ONETIME ONE Administration Lactated Ringer's 1,000 mls @ 999 mls/hr 02/07/20 15:02 02/07/20 14:56 Ringers, Lactated IV 02/07/20 16:02 999 mls/hr ONETIME ONE Administration Ondansetron HCl 4 mg 02/07/20 15:02 02/07/20 15:14 Zofran IV 02/07/20 15:03 4 mg ONETIME ONE Administration - Re-Assessments/Exams Free Text/Narrative Re-Assessment/Exam: 02/07/20 17:59 Initially was given a liter of LR 1 L wide open. Zofran 4 mg IV push, Haldol 2.5 mg IV push. And Bentyl 20 mg IM. She did feel quite a bit better after the above therapy. Her laboratory evaluation shows a mild elevation of the WBC at 13 and she has a hemoglobin of 16 which is most likely due to concentration due to dehydration. Her creatinine is 2.1 which is at about baseline for her. Interestingly today she has an increase in her lipase at about 1400 which in reviewing her chart not only here but also at [facility] she has not had pancreatitis in the past. She does have a history of a cholecystectomy. Her total bilirubin is normal. She also has a mild elevation of her AST and ALT. Her urinalysis is mildly positive for leuk esterase. UWBCs 5-10 urine culture pending, but also she has 30-40 RBCs in her urine. Looking back in her urinalysis in the hospital here she has chronic hematuria. She has had multiple CT scans of her abdomen that have not shown any kidney stones. Unsure of the cause of this chronic hematuria and proteinuria. I did speak with the patient's primary care provider who with a chronic presentation of this patient does not feel comfortable treating her pancreatitis here. I called and spoke with Dr. Jackman at [facility]. HPI ER COURSE findings and concerns were relayed to her verbally over the phone. Her questions were answered and she accepted the patient in transfer at this time with no new orders. I discussed the findings today as well as the plan of care and the patient is comfortable with this plan and her questions are answered. Departure - Departure Time of Disposition: 17:35 Disposition: DC/Tfer to Acute Hospital 02 Clinical Impression: Chronic nausea Pancreatitis Qualifiers: Chronicity: acute Pancreatitis type: unspecified pancreatitis type Acute pancreatitis complication: unspecified Qualified Code(s): K85.90 - Acute pancreatitis without necrosis or infection, unspecified Diarrhea Qualifiers: Diarrhea type: unspecified type Qualified Code(s): R19.7 - Diarrhea, unspecified Hematuria Qualifiers: Hematuria type: unspecified type Qualified Code(s): R31.9 - Hematuria, unspecified Proteinuria Qualifiers: Proteinuria type: unspecified Qualified Code(s): R80.9 - Proteinuria, unspecified - Discharge Information Referrals: Xiomy Oliva MD [Primary Care Provider] - Forms: ED Department Discharge, Interfacility Transfer [facility] Sepsis Event Note - Evaluation Sepsis Screening Result: No Definite Risk - Focused Exam Vital Signs: Vital Signs Temp Pulse Resp BP Pulse Ox 02/07/20 17:41 36.1 C 82 16 105/60 100 02/07/20 15:42 35.7 C L 79 14 94/54 L 100 02/07/20 15:05 36.1 C 102 H 16 93/56 L 96 Date Exam was Performed: 02/07/20 Time Exam was Performed: 17:55 - My Orders Last 24 Hours: My Active Orders 02/07/20 15:35 CULTURE URINE [RM] Stat 02/07/20 16:00 Dextrose 5%-Lactated Ringers 1,000 ml IV ASDIRECTED - Assessment/Plan Last 24 Hours: My Active Orders 02/07/20 15:35 CULTURE URINE [RM] Stat 02/07/20 16:00 Dextrose 5%-Lactated Ringers 1,000 ml IV ASDIRECTED Assessment:: Pancreatitis unknown cause. Chronic Crohns, Nausea vomiting. Dehydration CKD. at about baseline. Elevated AST ALT, normal BIli Plan: Transfer to [facility] for further care management and evaluation.
== END 2020-02-07 18:20 | disposition short-term general hospital (02) ==
LOC: VM.ED 14:15
DX: K85.90 Acute pancreatitis without necrosis or infection, unspecified (principal); R31.9 Hematuria, unspecified; R80.9 Proteinuria, unspecified; R19.7 Diarrhea, unspecified; N18.3 Chronic kidney disease, stage 3 (moderate); F41.9 Anxiety disorder, unspecified; Z90.49 Acquired absence of other specified parts of digestive tract; Z88.5 Allergy status to narcotic agent; Z88.0 Allergy status to penicillin; Z88.8 Allergy status to other drugs, medicaments and biological substances; Z79.899 Other long term (current) drug therapy
CPT/HCPCS: 80053; 80305; 81001; 82550; 83605; 83690; 83735; 85025; 85652; 86140; 87086; 96361; 96372; 96374; 96375; 99285; J0500; J1630; J2405; J7120; J7121

== ENCOUNTER 2020-05-21 14:20 | Emergency (ER) | payer BC, OTHER ==
--- NOTE | 2020-05-21 14:50 | EDM.PDOC ---
ED HPI GENERAL MEDICAL PROBLEM - General Chief Complaint: Gastrointestinal Problem Stated Complaint: Nausea vomiting abnormal lab work from the clinic Time Seen by Provider: 05/21/20 14:35 Source of Information: Reports: Patient History Limitations: Reports: No Limitations - History of Present Illness INITIAL COMMENTS - FREE TEXT/NARRATIVE: Patient states she was seen by her primary care provider today where she had lab work drawn and also dose of Remicade then she was sent here to the emergency room for transfer to [facility] due to increased white blood cell count of 14.9 and a BUN/creatinine of 64/3.16 which is above her baseline. Patient states she has had to been sent multiple times and stayed several days to weeks in the hospital where she is consulted on by nephrology. Patient states over the last day or 2 she has been having some nausea and vomited about 6 times yesterday and a few times a day before states she does not feel well overall she said her bones do seem to hurt about a 7 out of 10, she denies any fever chills sweats cough body aches or myalgias or issues. She did get a shot of Benadryl in the clinic which helped with the nausea she states in emergency room she usually gets another dose of Benadryl and Dilaudid for pain Duration: Day(s): Worsens with: Reports: None Associated Symptoms: Reports: Loss of Appetite, Nausea/Vomiting, Weakness. Denies: Confusion, Chest Pain, Cough, cough w sputum, Diaphoresis, Fever/Chills, Headaches, Malaise, Seizure, Shortness of Breath - Related Data Allergies Allergy/AdvReac Type Severity Reaction Status Date / Time codeine Allergy Severe Anaphylactic Verified 05/21/20 14:33 Shock Penicillins Allergy Severe Anaphylactic Verified 05/21/20 14:33 Shock acetaminophen Allergy Other Verified 05/21/20 14:33 [From Darvocet-N] propoxyphene Allergy Other Verified 05/21/20 14:33 [From Darvocet-N] morphine AdvReac Headache Verified 05/21/20 14:33 Home Meds: Home Meds Melatonin 6 mg PO BEDTIME 11/23/18 [History] Simethicone 80 mg PO QID PRN 11/23/18 [History] Amylase/Lipase/Protease [Johnna GALLAGHER 24,000 Unit] 2 cap PO TIDMEALS 02/22/19 [History] azaTHIOprine [Imuran] 50 mg PO DAILY 02/22/19 [History] Lidocaine/Prilocaine [Lidocaine-Prilocaine Cream] 1 applic TOP DAILY PRN 04/14/19 [History] predniSONE [Prednisone] 40 mg PO DAILY 04/14/19 [History] Menthol/Methyl Salicylate [Icy Hot] 1 applic TOP QID PRN 05/01/19 [History] Hydrocortisone [Anusol-HC] 1 applic RECTAL QID PRN 05/02/19 [History] Heparin Sodium [Heparin Lock Flush] 500 units IVPUSH ASDIRECTED PRN syringe 06/04/19 [Rx] Zinc Oxide 0 gm TOP Q2H PRN tube 06/04/19 [Rx] Ergocalciferol (Vitamin D2) [Drisdol] 50,000 unit PO WEEKLY 07/19/19 [History] Sertraline [Zoloft] 100 mg PO DAILY 08/23/19 [History] Cyclobenzaprine [Flexeril] 5 mg PO Q8H PRN 10/30/19 [History] Ondansetron [Zofran ODT] 8 mg PO Q8H PRN 12/19/19 [History] Acetaminophen [Tylenol Solution 160 MG/5 ML] 650 mg PO Q4HR PRN 02/27/20 [History] Cyanocobalamin (Vitamin B-12) [Cyanocobalamin Injection] 1,000 mcg IM ASDIRECTED 02/27/20 [History] Ferrous Sulfate 325 mg PO DAILY 02/27/20 [History] HYDROmorphone [Dilaudid] 2 mg PO Q4H PRN 02/27/20 [History] Hydrocodone/Acetaminophen [[place] 5-325 Tablet] 1 each PO Q4H PRN 02/27/20 [History] InFLIXimab [Remicade] 368 mg IV ASDIRECTED 02/27/20 [History] Lactated Ringers [Ringers, Lactated] 1,000 ml IV Q48H 02/27/20 [History] Lactobacillus Acidophilus [Acidophilus Lactobacilli] 1 each PO DAILY 02/27/20 [History] Multivitamin [Multivitamins] 1 each PO DAILY 02/27/20 [History] Nystatin [Nystatin Crm] 1 applic TOP BID 02/27/20 [History] Pantoprazole Sodium [Protonix] 40 mg PO DAILY 02/27/20 [History] Potassium Bicarbonate [Potassium Tablet Eff] 25 meq PO DAILY 02/27/20 [History] Potassium Chloride 40 meq PO BID 02/27/20 [History] Prochlorperazine [Compazine] 10 mg PO Q8H PRN 02/27/20 [History] Vancomycin 125 mg PO QID 02/27/20 [History] diphenhydrAMINE [Benadryl] 50 mg PO Q4H PRN 02/27/20 [History] Past Medical History HEENT History: Reports: None Cardiovascular History: Reports: None Respiratory History: Reports: None Other Respiratory History: Chronic Cough Gastrointestinal History: Reports: GERD, Inflammatory Bowel Disease Other Gastrointestinal History: crohn's disease. colitis Genitourinary History: Reports: Acute Renal Failure, Chronic Renal Insuffiency Other Genitourinary History: Acute renal failure superimposed on stage 3 kidney disease. Acute kidney injury. Chronic kidney disease, stage 3 with GFR 30-59 [employer] History: Reports: None Musculoskeletal History: Reports: Back Pain, Chronic Neurological History: Reports: None Psychiatric History: Reports: Anxiety Endocrine/Metabolic History: Reports: None Other Endocrine/Metabolic History: BMI 19.9 or less - adult. Severe protien - calorie malnutrition. Immunosuppression Hematologic History: Reports: Anemia Immunologic History: Reports: Immunosuppression, Other (See Below) Other Immunologic History: lupus Oncologic (Cancer) History: Reports: None Dermatologic History: Reports: None - Infectious Disease History Infectious Disease History: Reports: None - Past Surgical History Head Surgeries/Procedures: Reports: None GI Surgical History: Reports: Appendectomy, Cholecystectomy, Colonoscopy, Other (See Below) Other GI Surgeries/Procedures: partial sigmoidectomy Social & Family History - Family History Family Medical History: Noncontributory HEENT: Reports: None Cardiac: Reports: None GI: Reports: None OBGYN: Reports: None Neurological: Reports: Parkinson's Psychiatric: Reports: None Endocrine/Metabolic: Reports: None Immunologic: Reports: None Dermatologic: Reports: None Oncologic: Reports: Brain, Liver - Tobacco Use Smoking Status *Q: Never Smoker - Caffeine Use Caffeine Use: Reports: None Caffeine Use Comment: 2cups of coffee 1 - 2 bottles of pop - Living Situation & Occupation Living situation: Reports: , with Significant Other (from [place] but staying with her daughter in [place]) 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 Denies: Fever, Chills, Malaise, Weakness, Fatigue HEENT: Reports: No Symptoms Respiratory: Reports: No Symptoms Cardiovascular: Reports: No Symptoms Endocrine: Reports: Fatigue GI/Abdominal: Reports: Nausea, Vomiting. Denies: Abdominal Pain, Anorexia, Black Stool, Bloody Stool, Constipation, Diarrhea, Decreased Appetite, Difficulty Swallowing, Distension : Reports: No Symptoms. Denies: Discharge, Dysuria, Flank Pain Musculoskeletal: Reports: Muscle Pain. Denies: No Symptoms Skin: Reports: No Symptoms Neurological: Reports: No Symptoms, Weakness. Denies: Confusion, Dizziness, Headache, Numbness Psychiatric: Reports: No Symptoms Hematologic/Lymphatic: Reports: No Symptoms Immunologic: Reports: No Symptoms ED EXAM, GI/ABD - Physical Exam Exam: See Below Exam Limited By: No Limitations General Appearance: Alert, WD/WN, No Apparent Distress, Other (Patient is very friendly answers all questions following all commands noted mild tachycardia 116) Eyes: Bilateral: Normal Appearance, EOMI Ears: Normal External Exam, Normal Canal, Hearing Grossly Normal, Normal TMs Nose: Normal Inspection, Normal Mucosa, No Blood Throat/Mouth: Normal Inspection, Normal Lips, Normal Teeth, Normal Gums, Normal Oropharynx, Normal Voice, No Airway Compromise Head: Atraumatic, Normocephalic Neck: Normal Inspection, Supple, Non-Tender, Full Range of Motion Respiratory/Chest: No Respiratory Distress, Lungs Clear, Normal Breath Sounds, No Accessory Muscle Use, Chest Non-Tender Cardiovascular: Normal Peripheral Pulses, Regular Rate, Rhythm, No Edema, No Gallop, No JVD, No Murmur, No Rub GI/Abdominal Exam: Normal Bowel Sounds, Soft, Non-Tender, No Organomegaly, No Distention Back Exam: Normal Inspection, Full Range of Motion. No: CVA Tenderness (L), CVA Tenderness (R) Extremities: Normal Inspection, Normal Range of Motion, Non-Tender, No Pedal Edema, Normal Capillary Refill Neurological: Alert, Oriented, CN II-XII Intact, Normal Cognition, Normal Gait, No Motor/Sensory Deficits Psychiatric: Normal Affect, Normal Mood Skin Exam: Warm, Dry, Intact, Normal Color, No Rash Course - Vital Signs Text/Narrative:: Patient had full set of labs at the clinic and I will check urine and chest x- ray secondary to white blood cell count of 14.[address] Ledezma Hospitalist [facility] will accept transfer of pt 1545 Last Recorded V/S: Last Vital Signs Temp 37.1 C 05/21/20 14:23 Pulse 116 H 05/21/20 14:23 Resp 18 05/21/20 14:23 BP 94/65 05/21/20 14:23 Pulse Ox 100 05/21/20 14:23 - Orders/Labs/Meds Orders: Active Orders 24 hr Category Date Time Status Ondansetron [Zofran ODT] Med 05/21/20 15:37 Once 4 mg PO ONETIME ONE Medication Orders Ondansetron HCl (Zofran Odt) 4 mg PO ONETIME ONE Stop: 05/21/20 15:38 Labs: Laboratory Tests 05/21/20 Range/Units 15:00 Urine Color Yellow (YELLOW) Urine Appearance Slightly cloudy H (CLEAR) Urine pH 5.5 (5.0-8.0) Ur Specific [place] 1.025 Urine Protein 100 H (NEGATIVE) mg/dL Urine Glucose (UA) Negative (NEGATIVE) mg/dL Urine Ketones Trace H (NEGATIVE) mg/dL Urine Occult Blood Moderate H (NEGATIVE) Urine Nitrite Negative (NEGATIVE) Urine Bilirubin Small H (NEGATIVE) Urine Urobilinogen 0.2 (0.2) EU/dL Ur Leukocyte Esterase Small H (NEGATIVE) U Hyaline Cast (Auto) Occasional Urine RBC 10-20 H (NOT SEEN) /HPF Urine WBC 5-10 H (NOT SEEN) /HPF Ur Squamous Epith Cells Few H (NEGATIVE) /HPF Urine Bacteria Occasional H (NEGATIVE) /HPF Urine Mucus Occasional H (NEGATIVE) /LPF Meds: Medications Generic Name Dose Route Start Last Admin Trade Name Freq PRN Reason Stop Dose Admin Ondansetron HCl 4 mg 05/21/20 15:37 Zofran Odt PO 05/21/20 15:38 ONETIME ONE Departure - Departure Time of Disposition: 15:15 Disposition: DC/Tfer to Acute Hospital 02 Condition: Good Clinical Impression: Leukocytosis, Renal insufficiency Nausea & vomiting Qualifiers: Vomiting type: unspecified Vomiting Intractability: non-intractable Qualified Code(s): R11.2 - Nausea with vomiting, unspecified - Discharge Information *PRESCRIPTION DRUG MONITORING PROGRAM REVIEWED*: No *COPY OF PRESCRIPTION DRUG MONITORING REPORT IN PATIENT CHELSEY: No Referrals: Xiomy Oliva MD [Primary Care Provider] - Forms: ED Department Discharge Sepsis Event Note (ED) - Evaluation Sepsis Screening Result: No Definite Risk - Focused Exam Vital Signs: Vital Signs Temp Pulse Resp BP Pulse Ox 05/21/20 14:23 37.1 C 116 H 18 94/65 100 - Problem List & Annotations (1) Leukocytosis SNOMED Code(s): 587322704, 827905628 Code(s): D72.829 - ELEVATED WHITE BLOOD CELL COUNT, UNSPECIFIED Status: Acute Current Visit: No (2) Renal insufficiency SNOMED Code(s): 652904963, 896493210 Code(s): N28.9 - DISORDER OF KIDNEY AND URETER, UNSPECIFIED Status: Acute Current Visit: No (3) Chronic kidney disease SNOMED Code(s): 360991775 Code(s): N18.9 - CHRONIC KIDNEY DISEASE, UNSPECIFIED Status: Chronic Current Visit: No (4) Nausea & vomiting SNOMED Code(s): 12737590 Code(s): R11.2 - NAUSEA WITH VOMITING, UNSPECIFIED Status: Chronic Priority: Medium Current Visit: No Qualifiers: Vomiting type: unspecified Vomiting Intractability: non-intractable Qualified Code(s): R11.2 - Nausea with vomiting, unspecified - My Orders Last 24 Hours: My Active Orders 05/21/20 15:37 Ondansetron [Zofran ODT] 4 mg PO ONETIME ONE - Assessment/Plan Last 24 Hours: My Active Orders 05/21/20 15:37 Ondansetron [Zofran ODT] 4 mg PO ONETIME ONE
[2020-05-21] MEDS ORDERED: Ondansetron 4 MG Tab.DIS PO ONE (15:37)
--- NOTE | 2020-05-21 15:37 | CR ---
[id number] RAD/RAD Chest PA And Lateral EXAM: RAD Chest PA And Lateral CLINICAL DATA: INCREASED WHITE BLOOD CELL COUNT COMPARISON: CORRELATION IS MADE WITH JANUARY 29, 2020 FINDINGS: The lungs are clear The chest port is seen The cardiomediastinal contour is stable Scoliosis is present IMPRESSION: NO ACUTE PROCESS. Bubba Baltazar MD 05/21/20 [id number] Thank you for allowing us to participate in the care of your patient.
[2020-05-21] MEDS ORDERED: HYDROmorphone 0.5 MG/0.5 ML Syringe IV ONE (15:43)
[2020-05-21] MEDS ORDERED: diphenhydrAMINE 50 MG/ML SDV IVPUSH ONE (15:44)
[2020-05-21] MEDS ORDERED: Sodium Chloride 0.9% 1,000 ML IV SCH (15:45)
== END 2020-05-21 16:34 | disposition short-term general hospital (02) ==
LOC: VM.ED 14:20
DX: N28.9 Disorder of kidney and ureter, unspecified (principal); D72.829 Elevated white blood cell count, unspecified; R11.2 Nausea with vomiting, unspecified; K21.9 Gastro-esophageal reflux disease without esophagitis; N18.3 Chronic kidney disease, stage 3 (moderate); F41.9 Anxiety disorder, unspecified; D64.9 Anemia, unspecified; Z90.49 Acquired absence of other specified parts of digestive tract; Z88.5 Allergy status to narcotic agent; Z88.0 Allergy status to penicillin; Z88.6 Allergy status to analgesic agent; Z79.899 Other long term (current) drug therapy
CPT/HCPCS: 71046; 81001; 96361; 96374; 96375; 99284; 99285; A9270; J1170; J1200; J7030

== ENCOUNTER 2020-06-11 23:12 | Emergency (ER) | payer BC, OTHER ==
[2020-06-11] MEDS ORDERED: Prochlorperazine 10 MG/2 ML SDV IV ONE (23:42)
[2020-06-11] MEDS ORDERED: diphenhydrAMINE 50 MG/ML SDV IVPUSH ONE (23:42)
[2020-06-11] MEDS ORDERED: HYDROmorphone 0.5 MG/0.5 ML Syringe IVPUSH ONE (23:43)
[2020-06-11] MEDS ORDERED: Sodium Chloride 0.9% 1,000 ML IV ONE (23:44)
--- NOTE | 2020-06-12 | EDM.PDOC ---
ED HPI GENERAL MEDICAL PROBLEM - General Chief Complaint: General Stated Complaint: pain, dizzy Time Seen by Provider: 06/11/20 23:29 Source of Information: Reports: Patient, Family, RN, RN Notes Reviewed History Limitations: Reports: No Limitations - History of Present Illness INITIAL COMMENTS - FREE TEXT/NARRATIVE: Patient presents to ER with her daughter with complaint of right upper quadrant pain, under the right rib cage. Patient states the pain began approximately a week ago and has progressively gotten worse. Patient states that is very painful to take a deep breath. Patient has many chronic illnesses, including history of pancreatitis as well as abscess formation of the GI post G-tube. Patient is on IV TPN as well as fluids at home daily. Patient reports history of nausea and vomiting, and feels this has been worse over the past few days. Patient denies cough or shortness of breath, just that it is painful to take a deep breath. Patient reports she did have a fever last night, but states no fever today. Patient states approximately 1 month ago she was at the chiropractor and had ribs and sternum fractured. She states the pain from this has basically resolved. Patient last took her pain medications at 830 and 9 PM for chronic pain. Patient does have Crohn's disease, and chronic malabsorption/malnutrition. Daughter states she has been doctoring recently for possible lupus. Onset: Gradual Right Pain Score (Numeric/FACES): 9 - Related Data Allergies Allergy/AdvReac Type Severity Reaction Status Date / Time codeine Allergy Severe Anaphylactic Verified 05/21/20 14:33 Shock Penicillins Allergy Severe Anaphylactic Verified 05/21/20 14:33 Shock acetaminophen Allergy Other Verified 05/21/20 14:33 [From Darvocet-N] lactose Allergy Diarrhea Verified 06/11/20 22:30 propoxyphene Allergy Other Verified 05/21/20 14:33 [From Darvocet-N] morphine AdvReac Headache Verified 05/21/20 14:33 Home Meds: Home Meds Melatonin 6 mg PO BEDTIME 11/23/18 [History] Simethicone 80 mg PO QID PRN 11/23/18 [History] Amylase/Lipase/Protease [Johnna GALLAGHER 24,000 Unit] 2 cap PO TIDMEALS 02/22/19 [History] azaTHIOprine [Imuran] 50 mg PO DAILY 02/22/19 [History] Lidocaine/Prilocaine [Lidocaine-Prilocaine Cream] 1 applic TOP DAILY PRN 04/14/19 [History] predniSONE [Prednisone] 15 mg PO DAILY 04/14/19 [History] Menthol/Methyl Salicylate [Icy Hot] 1 applic TOP QID PRN 05/01/19 [History] Hydrocortisone [Anusol-HC] 1 applic RECTAL QID PRN 05/02/19 [History] Zinc Oxide 0 gm TOP Q2H PRN tube 06/04/19 [Rx] Sertraline [Zoloft] 100 mg PO DAILY 08/23/19 [History] Cyclobenzaprine [Flexeril] 5 mg PO Q8H PRN 10/30/19 [History] Ondansetron [Zofran ODT] 8 mg PO Q8H PRN 12/19/19 [History] Acetaminophen [Tylenol Solution 160 MG/5 ML] 650 mg PO Q4HR PRN 02/27/20 [History] Cyanocobalamin (Vitamin B-12) [Cyanocobalamin Injection] 1,000 mcg IM ASDIRECTED 02/27/20 [History] Ferrous Sulfate 325 mg PO DAILY 02/27/20 [History] InFLIXimab [Remicade] 368 mg IV ASDIRECTED 02/27/20 [History] Lactated Ringers [Ringers, Lactated] 1,000 ml IV Q48H 02/27/20 [History] Lactobacillus Acidophilus [Acidophilus Lactobacilli] 1 each PO DAILY 02/27/20 [History] Nystatin [Nystatin Crm] 1 applic TOP BID 02/27/20 [History] Pantoprazole Sodium [Protonix] 40 mg PO DAILY 02/27/20 [History] Potassium Chloride 40 meq PO BID 02/27/20 [History] Prochlorperazine [Compazine] 10 mg PO Q8H PRN 02/27/20 [History] Diclofenac Sodium [Voltaren 1% Gel] 2 gm TOP BID PRN 06/11/20 [History] Ergocalciferol (Vitamin D2) [Drisdol] 50,000 unit PO DAILY 06/11/20 [History] Nystatin 5 ml PO QID 06/11/20 [History] diphenhydrAMINE [Benadryl] 25 mg IJ Q6H PRN 06/11/20 [History] oxyCODONE HCl [Oxycodone HCl] 10 mg PO Q8H 06/11/20 [History] traMADol [Ultram] 50 mg PO Q4H PRN 06/11/20 [History] Past Medical History HEENT History: Reports: None Cardiovascular History: Reports: None Respiratory History: Reports: None Other Respiratory History: Chronic Cough Gastrointestinal History: Reports: Chronic Diarrhea, GERD, Inflammatory Bowel Disease, Pancreatitis Other Gastrointestinal History: crohn's disease. colitis. severe malnutrition. hypokalemia. C diff. Abdominal wall abscess. Generalized abdominal pain Genitourinary History: Reports: Acute Renal Failure, Chronic Renal Insuffiency Other Genitourinary History: Acute renal failure superimposed on stage 3 kidney disease. Acute kidney injury. 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 Severe protien - calorie malnutrition. Immunosuppression Hematologic History: Reports: Anemia Immunologic History: Reports: Immunosuppression, Other (See Below) Other Immunologic History: lupus Oncologic (Cancer) History: Reports: None Dermatologic History: Reports: None - Infectious Disease History Infectious Disease History: Reports: None - Past Surgical History Head Surgeries/Procedures: Reports: None HEENT Surgical History: Reports: Oral Surgery GI Surgical History: Reports: Appendectomy, Cholecystectomy, Colonoscopy, Other (See Below) Other GI Surgeries/Procedures: partial sigmoidectomy. upper endoscopy. flexible sigmoidoscopy. video capsule. colectomy Female Surgical History: Reports: Lithotripsy/ESWL Musculoskeletal Surgical History: Reports: Other (See Below) Other Musculoskeletal Surgeries/Procedures:: bone graft Social & Family History - Family History Family Medical History: Noncontributory HEENT: Reports: None Cardiac: Reports: None GI: Reports: None OBGYN: Reports: None Neurological: Reports: Parkinson's Psychiatric: Reports: None Endocrine/Metabolic: Reports: None Immunologic: Reports: None Dermatologic: Reports: None Oncologic: Reports: Brain, Liver - Tobacco Use Smoking Status *Q: Never Smoker - Caffeine Use Caffeine Use: Reports: None Caffeine Use Comment: 2cups of coffee 1 - 2 bottles of pop - Living Situation & Occupation Living situation: Reports: , with Significant Other (from [place] but staying with her daughter in [place]) 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 ED EXAM, GENERAL - Physical Exam Exam: See Below Exam Limited By: No Limitations General Appearance: Alert, WD/WN, Moderate Distress, Thin, Cachetic Eye Exam: Bilateral Eye: EOMI, Normal Inspection Ears: Normal External Exam, Hearing Grossly Normal Nose: Normal Inspection Throat/Mouth: Normal Inspection, Normal Voice, No Airway Compromise Head: Atraumatic, Normocephalic Neck: Normal Inspection, Supple, Non-Tender, Full Range of Motion Respiratory/Chest: No Respiratory Distress, Lungs Clear, No Accessory Muscle Use, Decreased Breath Sounds Cardiovascular: Normal Peripheral Pulses, Regular Rate, Rhythm, No Edema, No Gallop, No JVD, No Murmur, No Rub Peripheral Pulses: 2+: Radial (L), Radial (R) GI/Abdominal: Normal Bowel Sounds, Soft, Non-Tender (Female) Exam: Deferred Rectal (Female) Exam: Deferred Back Exam: Normal Inspection, Full Range of Motion Extremities: Normal Inspection, Normal Range of Motion, Non-Tender, Normal Capillary Refill, No Pedal Edema Neurological: Alert, Oriented, CN II-XII Intact, Normal Cognition, Normal Gait, Normal Reflexes, No Motor/Sensory Deficits Psychiatric: Normal Affect, Normal Mood Skin Exam: Warm, Dry, Intact, Normal Color, No Rash Lymphatic: No Adenopathy Course - Vital Signs Last Recorded V/S: Last Vital Signs Temp 97.7 F 06/12/20 02:05 Pulse 108 H 06/12/20 02:05 Resp 12 06/12/20 02:05 BP 106/62 06/12/20 02:05 Pulse Ox 97 06/12/20 02:05 - Orders/Labs/Meds Orders: Active Orders 24 hr Category Date Time Status Chest Abdomen Pelvis wo Cont [CT] Stat Exams 06/12/20 00:54 Taken CULTURE BLOOD [BC] Stat Lab 06/11/20 23:54 Received CULTURE BLOOD [BC] Stat Lab 06/11/20 23:54 Results UA RFX ALFREDO AND CULT IF INDIC [URIN] Stat Lab 06/12/20 01:36 Ordered Blood Culture x2 Reflex Set [OM.PC] Stat Oth 06/11/20 23:54 Ordered Labs: Laboratory Tests 06/12/20 06/12/20 06/12/20 Range/Units 00:00 00:00 00:00 WBC 29.8 H* (4.0-10.0) x10^3/uL RBC 4.01 (4.00-5.50) x10^6/uL Hgb 12.9 D (12.0-16.0) g/dL Hct 37.0 (33.0-47.0) % MCV 92.3 D (78.0-93.0) fL MCH 32.2 H (26.0-32.0) pg MCHC 34.9 (32.0-36.0) g/dL RDW Coeff of Brianda 11.6 (10.0-15.0) % Plt Count 697 H D (130-400) x10^3/uL Neut % (Auto) 92.5 H (50.0-80.0) % Lymph % (Auto) 3.3 L (25.0-50.0) % [place] % (Auto) 3.8 (2.0-11.0) % Eos % (Auto) 0.2 (0.0-4.0) % Baso % (Auto) 0.2 (0.2-1.2) % Sodium 123 L* D (136-145) mmol/L Potassium 3.3 L D (3.5-5.1) mmol/L Chloride 88 L D (98-107) mmol/L Carbon Dioxide 20 L (21-32) mmol/L Anion Gap 18.3 (10-20) mmol/L BUN 82 H* D (7-18) mg/dL Creatinine 2.0 H (0.55-1.02) mg/dL Est Cr Clr Drug Dosing 19.15 mL/min Estimated GFR (MDRD) 27 Glucose 124 H (74-106) mg/dL Lactic Acid 1.4 (0.4-2.0) mmol/L Calcium 8.9 (8.5-10.1) mg/dL Corrected Calcium 9.38 (8.5-10.1) mg/dL Total Bilirubin 0.3 (0.2-1.0) mg/dL AST 25 (15-37) U/L ALT 51 (14-59) U/L Alkaline Phosphatase 93 (46-116) U/L Total Protein 8.2 (6.4-8.2) g/dL Albumin 3.4 (3.4-5.0) g/dL Globulin 4.8 Albumin/Globulin Ratio 0.71 Amylase 89 (25-115) U/L Lipase 169 (73-393) U/L Urine Color (YELLOW) POC Urine Appearance (CLEAR) POC Urine pH (5.0-8.0) Ur Specific [place] (1.005-1.030) POC Urine Protein (NEGATIVE) POC Ur Glucose (UA) (NEGATIVE) POC Urine Ketones (NEGATIVE) POC Ur Occult Blood (NEGATIVE) POC Urine Nitrite (NEGATIVE) POC Urine Bilirubin (NEGATIVE) POC Urine Urobilinogen (0.2) POC U Leukocyte Esteras (NEGATIVE) 06/12/20 Range/Units 01:35 WBC (4.0-10.0) x10^3/uL RBC (4.00-5.50) x10^6/uL Hgb (12.0-16.0) g/dL Hct (33.0-47.0) % MCV (78.0-93.0) fL MCH (26.0-32.0) pg MCHC (32.0-36.0) g/dL RDW Coeff of Brianda (10.0-15.0) % Plt Count (130-400) x10^3/uL Neut % (Auto) (50.0-80.0) % Lymph % (Auto) (25.0-50.0) % [place] % (Auto) (2.0-11.0) % Eos % (Auto) (0.0-4.0) % Baso % (Auto) (0.2-1.2) % Sodium (136-145) mmol/L Potassium (3.5-5.1) mmol/L Chloride (98-107) mmol/L Carbon Dioxide (21-32) mmol/L Anion Gap (10-20) mmol/L BUN (7-18) mg/dL Creatinine (0.55-1.02) mg/dL Est Cr Clr Drug Dosing mL/min Estimated GFR (MDRD) Glucose (74-106) mg/dL Lactic Acid (0.4-2.0) mmol/L Calcium (8.5-10.1) mg/dL Corrected Calcium (8.5-10.1) mg/dL Total Bilirubin (0.2-1.0) mg/dL AST (15-37) U/L ALT (14-59) U/L Alkaline Phosphatase (46-116) U/L Total Protein (6.4-8.2) g/dL Albumin (3.4-5.0) g/dL Globulin Albumin/Globulin Ratio Amylase (25-115) U/L Lipase (73-393) U/L Urine Color Yellow (YELLOW) POC Urine Appearance Cloudy H (CLEAR) POC Urine pH 6.0 (5.0-8.0) Ur Specific [place] 1.020 (1.005-1.030) POC Urine Protein 30 H (NEGATIVE) POC Ur Glucose (UA) Negative (NEGATIVE) POC Urine Ketones Negative (NEGATIVE) POC Ur Occult Blood Large H (NEGATIVE) POC Urine Nitrite Negative (NEGATIVE) POC Urine Bilirubin Negative (NEGATIVE) POC Urine Urobilinogen 0.2 (0.2) POC U Leukocyte Esteras Moderate H (NEGATIVE) Meds: Medications Discontinued Medications Generic Name Dose Route Start Last Admin Trade Name Freq PRN Reason Stop Dose Admin Diphenhydramine HCl 50 mg 06/11/20 23:42 06/11/20 23:56 Benadryl IVPUSH 06/11/20 23:43 50 mg ONETIME ONE Administration Hydromorphone HCl 0.5 mg 06/11/20 23:43 06/12/20 00:01 Dilaudid IVPUSH 06/11/20 23:44 0.5 mg ONETIME ONE Administration Sodium Chloride 1,000 mls @ 999 mls/hr 06/11/20 23:44 06/11/20 23:55 Normal Saline IV 06/12/20 00:44 999 mls/hr ONETIME ONE Administration Prochlorperazine Edisylate 10 mg 06/11/20 23:42 06/11/20 23:57 Compazine IV 06/11/20 23:43 10 mg ONETIME ONE Administration - Radiology Interpretation Free Text/Narrative:: CT chest/abdomen/pelvis without contrast: Small pericardial effusion or thickening Nonspecific right: And hepatic flexure mild dilation Nondependent posterior air could represent intramural gas There is no wall thickening but cannot completely rule out early ischemia See rad report - Re-Assessments/Exams Free Text/Narrative Re-Assessment/Exam: 06/12/20 02:12 Patient case was discussed with Dr. Soto at [address] without contrast be done on the patient. Will reevaluate transfer to [facility] when results are back. Results back on CT without contrast, [facility] 1 call notified. Will call back when they are done with other phone calls. 06/12/20 02:[address] results discussed with Dr. Soto who agreed to accept the patient for transfer to [facility]. Departure - Departure Time of Disposition: 02:34 Disposition: DC/Tfer to [facility] 02 Condition: Poor Clinical Impression: Hyponatremia, Right upper quadrant abdominal pain Renal failure Qualifiers: Renal failure chronicity: acute on chronic Acute renal failure type: unspecified Chronic kidney disease stage: unspecified stage Qualified Code(s): N17.9 - Acute kidney failure, unspecified; N18.9 - Chronic kidney disease, unspecified Leukocytosis Qualifiers: Leukocytosis type: unspecified Qualified Code(s): D72.829 - Elevated white blood cell count, unspecified - Discharge Information *PRESCRIPTION DRUG MONITORING PROGRAM REVIEWED*: No *COPY OF PRESCRIPTION DRUG MONITORING REPORT IN PATIENT CHELSEY: No Referrals: PCP,Unobtain [Primary Care Provider] - Forms: ED Department Discharge, Interfacility Transfer [facility] Sepsis Event Note (ED) - Evaluation Sepsis Screening Result: No Definite Risk - Focused Exam Vital Signs: Vital Signs Temp Pulse Resp BP BP Pulse Ox 06/12/20 02:05 97.7 F 108 H 12 106/62 97 06/12/20 00:53 97.7 F 117 H 14 112/70 95 06/11/20 23:12 97 F 120 H 22 H 117/74 99 - My Orders Last 24 Hours: My Active Orders 06/11/20 23:54 CULTURE BLOOD [BC] Stat CULTURE BLOOD [BC] Stat Blood Culture x2 Reflex Set [OM.PC] Stat 06/12/20 00:54 Chest Abdomen Pelvis wo Cont [CT] Stat 06/12/20 01:36 UA RFX ALFREDO AND CULT IF INDIC [URIN] Stat - Assessment/Plan Last 24 Hours: My Active Orders 06/11/20 23:54 CULTURE BLOOD [BC] Stat CULTURE BLOOD [BC] Stat Blood Culture x2 Reflex Set [OM.PC] Stat 06/12/20 00:54 Chest Abdomen Pelvis wo Cont [CT] Stat 06/12/20 01:36 UA RFX ALFREDO AND CULT IF INDIC [URIN] Stat
[2020-06-12 00:31] LABS: ANION GAP 18.3 mmol/L (10-20)
--- NOTE | 2020-06-12 08:31 | CT ---
[id number] CT/CT Chest Abdomen Pelvis WO IV EXAM: CT Chest Abdomen Pelvis WO IV CLINICAL DATA: RIGHT UPPER QUADRANT PAIN, UNDER RIBS, ELEVATED WBC. COMPARISON STUDY: Multiple priors, most recent from January 29, 2020. FINDINGS: Findings are within limitation of no contrast material. This will obscure some causes of leukocytosis. Negative for pneumonia. No effusion or pneumothorax. No fluid retention the chest. Small pericardial effusion. Heart is normal in size. Thoracic cord is normal in caliber. Right chest wall port catheter in place with tip at the cavoatrial junction. Abdomen and pelvis: Chronic dilation of the common bile duct, unchanged from numerous prior examinations. Chronic dilation of the colon containing stool and multiple air-fluid levels. Findings also include chronic wall thickening in the rectum distal to the bowel anastomosis. Additionally there is chronic dilation with air-fluid levels in the distal small bowel. Bilateral nephrolithiasis. Moderate stone burden. No change from the prior examination. No hydronephrosis. No calculi identified along the expected path of the ureters. Evaluation for pyelonephritis markedly limited by lack of contrast material. Liver, spleen, adrenal glands, and pancreas are unremarkable. Gallbladder has been resected. Bones and soft tissues: No fracture, compression deformity, or osseous lesion. IMPRESSION: Chronic dilation of the small bowel and colon with air-fluid levels. Findings have not significantly changed compared to numerous prior examinations and are nonspecific in etiology. Multiple other chronic findings are described in detail above. No obvious source for pain and leukocytosis. Morgan Nye MD 06/12/20 0829 Thank you for allowing us to participate in the care of your patient.
== END 2020-06-12 03:33 | disposition short-term general hospital (02) ==
LOC: VM.ED 23:12
DX: N17.9 Acute kidney failure, unspecified (principal); N18.9 Chronic kidney disease, unspecified; E87.1 Hypo-osmolality and hyponatremia; K21.9 Gastro-esophageal reflux disease without esophagitis; M32.9 Systemic lupus erythematosus, unspecified; F41.9 Anxiety disorder, unspecified; D72.829 Elevated white blood cell count, unspecified; Z88.5 Allergy status to narcotic agent; Z88.0 Allergy status to penicillin; Z88.6 Allergy status to analgesic agent; Z91.011 Allergy to milk products; Z88.8 Allergy status to other drugs, medicaments and biological substances; Z79.899 Other long term (current) drug therapy
CPT/HCPCS: 36415; 71250; 74176; 80053; 81001; 82150; 83605; 83690; 85025; 87040; 87077; 87086; 87088; 87186; 96361; 96374; 96375; 99284; 99285; J0780; J1170; J1200; J7030; 81002; 81015; 87147

== ENCOUNTER 2020-06-21 14:03 | Emergency (ER) | payer BC, OTHER ==
--- NOTE | 2020-06-21 15:09 | CR ---
[id number] RAD/RAD Chest PA And Lateral EXAM: RAD Chest PA And Lateral INDICATION: CP, SHORT OF BREATH. COMPARISON: May 21, 2020. DISCUSSION: Right chest wall Mediport. Right-sided PICC line with tip overlying the cavoatrial junction. Cardiomediastinal silhouette is normal in size and contour. Trace left pleural effusion. No pneumothorax. No definite pulmonary infiltrate. IMPRESSION: Trace left pleural effusion. Maikel Medley DO 06/21/20 1500 Thank you for allowing us to participate in the care of your patient.
[2020-06-21 15:31] LABS: CHLORIDE,CL 100 mmol/L (98-107); SODIUM,NA 135 mmol/L (136-145)
--- NOTE | 2020-06-21 16:37 | EDM.PDOC ---
ED HPI GENERAL MEDICAL PROBLEM - General Chief Complaint: Respiratory Problem Stated Complaint: cp SOB Time Seen by Provider: 06/21/20 14:30 Source of Information: Reports: Patient History Limitations: Reports: No Limitations - History of Present Illness INITIAL COMMENTS - FREE TEXT/NARRATIVE: Patient comes emergency department today from the clinic for further evaluation of chest pain and shortness of breath. This patient is well-known to myself as well as the department for quite a few chronic problems. She was just recently discharged from [facility] in [place] following the diagnosis of Staphylococcus epidermidis bacteremia as well as pericarditis chronic immunosuppression. She is taking aspirin for pericarditis. While she was in the hospital there she had a CT scan for chest PE protocol and her IV infiltrated in her left antecubital fossa. It initially was very swollen and painful but it improved but now over the past 2 days is gotten quite worse swollen tender and erythematous. She denies any generalized fever or chills. She denies any malaise or fatigue. She does complain of chronic multiple emesis every day and diarrhea although I seen this patient multiple times in the emergency department and never seen any diarrhea or vomiting. She does have a history of Crohn's which she is on Remicade and TPN for. She relates that the pain in her chest is worse with a deep breath cough and movement is getting much worse over the past 24 to 36 hours. And she is more short of breath especially with physical exertion. Her abdominal pain is at baseline for her chronic pain. Her diarrhea is at baseline for chronic diarrhea. She denies any hematuria dysuria or urinary frequency. She has been giving her self her daptomycin reportedly at home as well as her TPN reportedly at home. Middle Chest Pain Score (Numeric/FACES): 8 - Related Data Allergies Allergy/AdvReac Type Severity Reaction Status Date / Time codeine Allergy Severe Anaphylactic Verified 06/21/20 14:41 Shock Penicillins Allergy Severe Anaphylactic Verified 06/21/20 14:41 Shock acetaminophen Allergy Other Verified 06/21/20 14:41 [From Darvocet-N] lactose Allergy Diarrhea Verified 06/21/20 14:41 propoxyphene Allergy Other Verified 06/21/20 14:41 [From Darvocet-N] morphine AdvReac Headache Verified 06/21/20 14:41 Home Meds: Home Meds Simethicone 80 mg PO QID PRN 11/23/18 [History] Amylase/Lipase/Protease [Johnna GALLAGHER 24,000 Unit] 2 cap PO TIDMEALS 02/22/19 [History] azaTHIOprine [Imuran] 50 mg PO DAILY 02/22/19 [History] Lidocaine/Prilocaine [Lidocaine-Prilocaine Cream] 1 applic TOP DAILY PRN 04/14/19 [History] Menthol/Methyl Salicylate [Icy Hot] 1 applic TOP QID PRN 05/01/19 [History] Hydrocortisone [Anusol-HC] 1 applic RECTAL QID PRN 05/02/19 [History] Zinc Oxide 0 gm TOP Q2H PRN tube 06/04/19 [Rx] Sertraline [Zoloft] 100 mg PO DAILY 08/23/19 [History] Cyclobenzaprine [Flexeril] 5 mg PO Q8H PRN 10/30/19 [History] Ondansetron [Zofran ODT] 8 mg PO Q8H PRN 12/19/19 [History] Acetaminophen [Tylenol Solution 160 MG/5 ML] 650 mg PO Q4HR PRN 02/27/20 [History] Ferrous Sulfate 325 mg PO DAILY 02/27/20 [History] InFLIXimab [Remicade] 368 mg IV ASDIRECTED 02/27/20 [History] Lactated Ringers [Ringers, Lactated] 1,000 ml IV Q48H 02/27/20 [History] Lactobacillus Acidophilus [Acidophilus Lactobacilli] 1 each PO DAILY 02/27/20 [History] Nystatin [Nystatin Crm] 1 applic TOP BID 02/27/20 [History] Pantoprazole Sodium [Protonix] 40 mg PO BID 02/27/20 [History] Potassium Chloride 40 meq PO BID 02/27/20 [History] Prochlorperazine [Compazine] 10 mg PO Q8H PRN 02/27/20 [History] Diclofenac Sodium [Voltaren 1% Gel] 2 gm TOP BID PRN 06/11/20 [History] Nystatin 5 ml PO QID 06/11/20 [History] diphenhydrAMINE [Benadryl] 25 mg IV Q6H PRN 06/11/20 [History] oxyCODONE HCl [Oxycodone HCl] 10 mg PO Q4H 06/11/20 [History] Past Medical History HEENT History: Reports: None Cardiovascular History: Reports: None Respiratory History: Reports: None Other Respiratory History: Chronic Cough Gastrointestinal History: Reports: Chronic Diarrhea, GERD, Inflammatory Bowel Disease, Pancreatitis Other Gastrointestinal History: crohn's disease. colitis. severe malnutrition. hypokalemia. C diff. Abdominal wall abscess. Generalized abdominal pain Genitourinary History: Reports: Acute Renal Failure, Chronic Renal Insuffiency Other Genitourinary History: Acute renal failure superimposed on stage 3 kidney disease. Acute kidney injury. Chronic kidney disease, stage 3 with GFR 30-59 [employer] RE[employer]ENTICE History: Reports: None Musculoskeletal History: Reports: Back Pain, Chronic Neurological History: Reports: Headaches, Chronic Psychiatric History: Reports: Anxiety Endocrine/Metabolic History: Reports: None Other Endocrine/Metabolic History: BMI 19.9 or less - adult. Severe protien - calorie malnutrition. Immunosuppression Hematologic History: Reports: Anemia Immunologic History: Reports: Immunosuppression, Other (See Below) Other Immunologic History: lupus Oncologic (Cancer) History: Reports: None Dermatologic History: Reports: None - Infectious Disease History Infectious Disease History: Reports: None - Past Surgical History HEENT Surgical History: Reports: Oral Surgery GI Surgical History: Reports: Appendectomy, Cholecystectomy, Colonoscopy, Other (See Below) Other GI Surgeries/Procedures: partial sigmoidectomy. upper endoscopy. flexible sigmoidoscopy. video capsule. colectomy Female Surgical History: Reports: Lithotripsy/ESWL Musculoskeletal Surgical History: Reports: Other (See Below) Other Musculoskeletal Surgeries/Procedures:: bone graft Social & Family History - Family History Family Medical History: Noncontributory HEENT: Reports: None Cardiac: Reports: None GI: Reports: None OBGYN: Reports: None Neurological: Reports: Parkinson's Psychiatric: Reports: None Endocrine/Metabolic: Reports: None Immunologic: Reports: None Dermatologic: Reports: None Oncologic: Reports: Brain, Liver - Tobacco Use Smoking Status *Q: Never Smoker - Caffeine Use Caffeine Use: Reports: None Caffeine Use Comment: 2cups of coffee 1 - 2 bottles of pop - Living Situation & Occupation Living situation: Reports: , with Significant Other (from [place] but staying with her daughter in [place]) 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 ED EXAM, GENERAL - Physical Exam Exam: See Below Free Text/Narrative:: This patient is in clear no respiratory distress when I am sitting there talking with her and she is able to speak in full sentences. Although when I isolate to auscultation of her lung sounds she suddenly becomes quite tachypneic and can barely take a breath. Once I am done with the auscultation she has back to clearly no respiratory distress. Exam Limited By: No Limitations General Appearance: Alert, WD/WN, No Apparent Distress, Cachetic Eye Exam: Bilateral Eye: EOMI, PERRL Ears: Normal External Exam Nose: Normal Inspection Throat/Mouth: Normal Inspection Head: Atraumatic, Normocephalic Neck: Normal Inspection, Supple Respiratory/Chest: No Respiratory Distress, Lungs Clear, Normal Breath Sounds, No Accessory Muscle Use (When the patient is just sitting there that she is clearly in no respiratory distress although when I isolate the examination to her lung sounds and discussing her breathing she becomes tachypneic and can barely breathe and this resolves following any assessment.) Cardiovascular: Normal Peripheral Pulses, Regular Rate, Rhythm Peripheral Pulses: 1+: Posterior Tibial (L), Posterior Tibial (R), Dorsalis Pedis (L), Dorsalis Pedis (R), 2+: Radial (L), Radial (R) GI/Abdominal: Normal Bowel Sounds, Soft, Tender (Generalized tenderness throughout her abdomen which is chronic for her. No guarding or rebound. No distention) (Female) Exam: Deferred Rectal (Female) Exam: Deferred Back Exam: Normal Inspection Extremities: No: Normal Inspection (She has a PICC line in the right AC that is unremarkable. In the left antecubital fossa there is a rather large area of erythema on the medial aspect induration swelling and tenderness. There is no exudate. There is no palpable fluctuance concerning for abscess. There is also some streaks up into the armpit.) Neurological: Alert, Oriented, Normal Cognition, No Motor/Sensory Deficits Psychiatric: Normal Affect Skin Exam: Warm, Dry, Intact, Normal Color EKG INTERPRETATION EKG Date: 06/21/20 Time: 14:55 Rhythm: NSR Rate (Beats/Min): 115 [place]: Normal P-Wave: Present QRS: Normal ST-T: Normal QT: Normal Comparison: No Change Course - Vital Signs Last Recorded V/S: Last Vital Signs Temp 98.3 F 08/14/20 14:10 Pulse 98 06/21/20 18:15 Resp 20 06/21/20 18:15 BP 108/67 06/21/20 18:15 Pulse Ox 98 06/21/20 18:15 - Orders/Labs/Meds Orders: Active Orders 24 hr Category Date Time Status CTA Chest W WO Contrast [Ang Chest] [CT] Stat Exams 06/21/20 16:52 Ordered CULTURE BLOOD [BC] Stat Lab 06/21/20 17:09 Received CULTURE BLOOD [BC] Stat Lab 06/21/20 17:27 Received Blood Culture x2 Reflex Set [OM.PC] Stat Oth 06/21/20 16:52 Ordered Peripheral IV Insertion Adult [OM.PC] Stat Oth 06/21/20 16:52 Ordered Labs: Laboratory Tests 06/21/20 06/21/20 06/21/20 Range/Units 14:57 14:57 14:57 WBC 11.3 H (4.0-10.0) x10^3/uL RBC 3.44 L (4.00-5.50) x10^6/uL Hgb 10.8 L D (12.0-16.0) g/dL Hct 33.3 (33.0-47.0) % MCV 96.8 H D (78.0-93.0) fL MCH 31.4 (26.0-32.0) pg MCHC 32.4 (32.0-36.0) g/dL RDW Coeff of Brianda 12.6 (10.0-15.0) % Plt Count 461 H D (130-400) x10^3/uL Add Manual Diff Yes Neutrophils % (Manual) 83 H (50-80) % Band Neutrophils % 1 (0-6) % Lymphocytes % (Manual) 4 L (25-50) % Monocytes % (Manual) 8 (2-11) % Eosinophils % (Manual) 4 (0-4) % Vacuolated Monocytes Rare Toxic Granulation 1+ slight H Platelet Estimate Increased H Polychromasia Rare Macrocytosis 1+ slight H ESR 92 H (0-20) mm/hr D-Dimer, Quantitative (<=0.58) mg/LFEU Sodium 135 L D (136-145) mmol/L Potassium 4.0 (3.5-5.1) mmol/L Chloride 100 D (98-107) mmol/L Carbon Dioxide 22 (21-32) mmol/L Anion Gap 17.0 (10-20) mmol/L BUN 48 H D (7-18) mg/dL Creatinine 1.3 H (0.55-1.02) mg/dL Est Cr Clr Drug Dosing TNP Estimated GFR (MDRD) 44 Glucose 94 (74-106) mg/dL Lactic Acid 1.2 (0.4-2.0) mmol/L Calcium 8.9 (8.5-10.1) mg/dL Corrected Calcium 9.94 (8.5-10.1) mg/dL Magnesium (1.8-2.4) mg/dL Total Bilirubin 0.3 (0.2-1.0) mg/dL AST 14 L (15-37) U/L ALT 25 (14-59) U/L Alkaline Phosphatase 81 (46-116) U/L Troponin I < 0.017 (<=0.056) ng/mL C-Reactive Protein 24.7 H (<=0.9) mg/dL Total Protein 7.2 (6.4-8.2) g/dL Albumin 2.7 L (3.4-5.0) g/dL Globulin 4.5 Albumin/Globulin Ratio 0.60 Urine Color (YELLOW) Urine Appearance (CLEAR) Urine pH (5.0-8.0) Ur Specific [place] Urine Protein (NEGATIVE) mg/dL Urine Glucose (UA) (NEGATIVE) mg/dL Urine Ketones (NEGATIVE) mg/dL Urine Occult Blood (NEGATIVE) Urine Nitrite (NEGATIVE) Urine Bilirubin (NEGATIVE) Urine Urobilinogen (0.2) EU/dL Ur Leukocyte Esterase (NEGATIVE) U Hyaline Cast (Auto) Urine RBC (NOT SEEN) /HPF Urine WBC (NOT SEEN) /HPF Ur Squamous Epith Cells (NEGATIVE) /HPF Urine Bacteria (NEGATIVE) /HPF Urine Mucus (NEGATIVE) /LPF 06/21/20 06/21/20 06/21/20 Range/Units 14:57 14:57 18:20 WBC (4.0-10.0) x10^3/uL RBC (4.00-5.50) x10^6/uL Hgb (12.0-16.0) g/dL Hct (33.0-47.0) % MCV (78.0-93.0) fL MCH (26.0-32.0) pg MCHC (32.0-36.0) g/dL RDW Coeff of Brianda (10.0-15.0) % Plt Count (130-400) x10^3/uL Add Manual Diff Neutrophils % (Manual) (50-80) % Band Neutrophils % (0-6) % Lymphocytes % (Manual) (25-50) % Monocytes % (Manual) (2-11) % Eosinophils % (Manual) (0-4) % Vacuolated Monocytes Toxic Granulation Platelet Estimate Polychromasia Macrocytosis ESR (0-20) mm/hr D-Dimer, Quantitative 6.83 H (<=0.58) mg/LFEU Sodium (136-145) mmol/L Potassium (3.5-5.1) mmol/L Chloride (98-107) mmol/L Carbon Dioxide (21-32) mmol/L Anion Gap (10-20) mmol/L BUN (7-18) mg/dL Creatinine (0.55-1.02) mg/dL Est Cr Clr Drug Dosing Estimated GFR (MDRD) Glucose (74-106) mg/dL Lactic Acid (0.4-2.0) mmol/L Calcium (8.5-10.1) mg/dL Corrected Calcium (8.5-10.1) mg/dL Magnesium 1.9 (1.8-2.4) mg/dL Total Bilirubin (0.2-1.0) mg/dL AST (15-37) U/L ALT (14-59) U/L Alkaline Phosphatase (46-116) U/L Troponin I (<=0.056) ng/mL C-Reactive Protein (<=0.9) mg/dL Total Protein (6.4-8.2) g/dL Albumin (3.4-5.0) g/dL Globulin Albumin/Globulin Ratio Urine Color Yellow (YELLOW) Urine Appearance Clear (CLEAR) Urine pH 5.5 (5.0-8.0) Ur Specific [place] 1.020 Urine Protein 30 H (NEGATIVE) mg/dL Urine Glucose (UA) Negative (NEGATIVE) mg/dL Urine Ketones Negative (NEGATIVE) mg/dL Urine Occult Blood Moderate H (NEGATIVE) Urine Nitrite Negative (NEGATIVE) Urine Bilirubin Negative (NEGATIVE) Urine Urobilinogen 0.2 (0.2) EU/dL Ur Leukocyte Esterase Negative (NEGATIVE) U Hyaline Cast (Auto) Rare Urine RBC 0-5 (NOT SEEN) /HPF Urine WBC 0-5 (NOT SEEN) /HPF Ur Squamous Epith Cells Rare (NEGATIVE) /HPF Urine Bacteria Not seen (NEGATIVE) /HPF Urine Mucus Not seen (NEGATIVE) /LPF Meds: Medications Discontinued Medications Generic Name Dose Route Start Last Admin Trade Name Freq PRN Reason Stop Dose Admin Diphenhydramine HCl 50 mg 06/21/20 16:53 06/21/20 17:34 Benadryl IVPUSH 06/21/20 16:54 50 mg ONETIME ONE Administration Hydromorphone HCl 0.5 mg 06/21/20 16:53 06/21/20 17:38 Dilaudid IV 06/21/20 16:54 0.5 mg ONETIME ONE Administration Hydromorphone HCl 1 mg 06/21/20 19:21 06/21/20 19:33 Dilaudid IVPUSH 06/21/20 19:22 1 mg ONETIME ONE Administration Lactated Ringer's 1,000 mls @ 999 mls/hr 06/21/20 16:53 06/21/20 17:34 Ringers, Lactated IV 06/21/20 17:53 999 mls/hr ONETIME ONE Administration Levofloxacin/Dextrose 750 mg/ 150 mls @ 100 mls/hr 06/21/20 18:49 06/21/20 19:21 Premix IV 06/21/20 20:18 100 mls/hr ONETIME ONE Administration Metronidazole 500 mg/ Premix 100 mls @ 100 mls/hr 06/21/20 18:49 06/21/20 19:22 IV 06/21/20 19:48 100 mls/hr ONETIME ONE Administration Lactated Ringer's 1,000 mls @ 125 mls/hr 06/21/20 19:15 06/21/20 19:42 Ringers, Lactated IV 125 mls/hr ASDIRECTED MARY Administration Sodium Chloride 10 ml 06/21/20 16:52 Saline Flush FLUSH ASDIRECTED PRN Keep Vein Open - Re-Assessments/Exams Free Text/Narrative Re-Assessment/Exam: 06/21/20 16:34 I did review the patient's recent hospitalization on 06/18 on her discharge summary. She was diagnosed with Staphylococcus epidermidis bacteremia. She was placed on daptomycin and vancomycin per infectious disease. She was started on high-dose aspirin 650 mg p.o. twice daily for the next 21 days for chest pain probably acute pericarditis. She was also placed on oral vancomycin for prophylactic C. difficile as she has had this many times in the past. She did have a CT of the chest that showed small pericardial effusion and an EKG showed some nonspecific diffuse ST changes therefore she was treated for pericarditis. Unable to be placed on colchicine due to her GI symptoms and her renal function. 06/21/20 16:37 CRP is still elevated today at 25 although it was 182.5 on 06/20. 06/21/20 22:10 Blood cultures x 2. D-Dimer mildly elevated at 6. Unable to get an IV due to the PIcc line in her left AC and the cellulits of the left AC. I am unable to rule out a pulmonary embolism on this patient who recently was diagnosed with pericarditis. She has an elevated d-dimer. She has tachypneic and tachycardic and subjectively with chest pain and shortness of breath. She also clearly has a worsening cellulitis of the left antecubital fossa despite being on daptomycin appropriately at home. Due to these concerns above and my inability to rule out a PE I called and spoke with Dr. Mendoza at [facility] in [place]. HPI ER COURSE findings and concerns were relayed he accepted the patient in transfer with flagyl and levquin added due to the worsening infection in her Left AC fossa. I discussed the plan of care with the patient. She is comfortable with this plan and her questions answered. Departure - Departure Time of Disposition: 18:56 Disposition: DC/Tfer to [facility] 02 Clinical Impression: Cellulitis Qualifiers: Site of cellulitis: unspecified site Qualified Code(s): L03.90 - Cellulitis, unspecified Pericarditis Qualifiers: Pericarditis type: unspecified type Chronicity: unspecified Qualified Code(s): I31.9 - Disease of pericardium, unspecified Chest pain Qualifiers: Chest pain type: unspecified Qualified Code(s): R07.9 - Chest pain, unspecified - Discharge Information Referrals: Xiomy Oliva MD [Primary Care Provider] - Forms: ED Department Discharge, Interfacility Transfer [facility] Sepsis Event Note (ED) - Evaluation Sepsis Screening Result: No Definite Risk - Focused Exam Vital Signs: Vital Signs Temp Pulse Resp BP Pulse Ox 06/21/20 18:15 98 20 108/67 98 06/21/20 14:10 98.3 F 116 H 16 102/58 L 100 - My Orders Last 24 Hours: My Active Orders 06/21/20 16:52 CTA Chest W WO Contrast [Ang Chest] [CT] Stat Blood Culture x2 Reflex Set [OM.PC] Stat Peripheral IV Insertion Adult [OM.PC] Stat 06/21/20 17:09 CULTURE BLOOD [BC] Stat 06/21/20 17:27 CULTURE BLOOD [BC] Stat - Assessment/Plan Last 24 Hours: My Active Orders 06/21/20 16:52 CTA Chest W WO Contrast [Ang Chest] [CT] Stat Blood Culture x2 Reflex Set [OM.PC] Stat Peripheral IV Insertion Adult [OM.PC] Stat 06/21/20 17:09 CULTURE BLOOD [BC] Stat 06/21/20 17:27 CULTURE BLOOD [BC] Stat
[2020-06-21] MEDS ORDERED: Sodium Chloride 0.9% 10 ML Syringe FLUSH PRN (16:52)
[2020-06-21] MEDS: Lactated Ringers 1,000 ML IV ONE (17:34)
[2020-06-21] MEDS: diphenhydrAMINE 50 MG/ML SDV IVPUSH ONE (17:34)
[2020-06-21] MEDS: HYDROmorphone 0.5 MG/0.5 ML Syringe IV ONE (17:38)
[2020-06-21] MEDS: Levofloxacin/Dextrose 5%-Water 750 MG in Premix Bag 1 BAG IV ONE (19:21)
[2020-06-21] MEDS: metroNIDAZOLE/Normal Saline 500 MG in Premix Bag 1 BAG IV ONE (19:22)
[2020-06-21] MEDS: HYDROmorphone 1 MG/ML Syringe IVPUSH ONE (19:33)
[2020-06-21] MEDS: Lactated Ringers 1,000 ML IV SCH (19:42)
== END 2020-06-21 19:48 | disposition short-term general hospital (02) ==
LOC: VM.ED 14:03
DX: I31.9 Disease of pericardium, unspecified (principal); L03.113 Cellulitis of right upper limb; K21.9 Gastro-esophageal reflux disease without esophagitis; N18.3 Chronic kidney disease, stage 3 (moderate); D64.9 Anemia, unspecified; F41.9 Anxiety disorder, unspecified; Z88.0 Allergy status to penicillin; Z88.5 Allergy status to narcotic agent; Z88.8 Allergy status to other drugs, medicaments and biological substances; Z79.899 Other long term (current) drug therapy
CPT/HCPCS: 36415; 71046; 80053; 81001; 83605; 83735; 84484; 85025; 85379; 85652; 86140; 87040; 93005; 93010; 96361; 96365; 96368; 96375; 96376; 99285; 99285-25; J1170; J1200; J1956; J3490; J7120